=== PATIENT | male | born 1985 | race Caucasian/White ===

== ENCOUNTER 2020-04-10 12:47 | Outpatient (RCR) | payer OTHER, SELFPAY | END 2020-05-28 11:53 | disposition home or self-care (01) | LOC: HO.WCC 12:47 | PROVIDERS: PCP Internal Medicine; Visit Provider Surgery | DX: E11.621 Type 2 diabetes mellitus with foot ulcer (principal); L97.523 Non-pressure chronic ulcer of other part of left foot with necrosis of muscle; L97.512 Non-pressure chronic ulcer of other part of right foot with fat layer exposed; L97.516 Non-pressure chronic ulcer of other part of right foot with bone involvement without evidence of necrosis; T87.89 Other complications of amputation stump; L08.9 Local infection of the skin and subcutaneous tissue, unspecified; L84 Corns and callosities; Z89.422 Acquired absence of other left toe(s) | CPT/HCPCS: 11042; 11043; 11044 ==

== ENCOUNTER → 2020-04-22 10:47 | Outpatient (BNVA) | payer OTHER, SELFPAY | PROVIDERS: PCP Internal Medicine; Visit Provider Surgery Vascular Surgery | DX: L97.519 Non-pressure chronic ulcer of other part of right foot with unspecified severity (principal) | CPT/HCPCS: 99213 ==

== ENCOUNTER 2020-05-05 21:47 | Inpatient (IN) | payer OTHER, SELFPAY ==
[2020-05-05 22:07] VITALS: BP 131/73; PULSE 97; RESP 20; TEMP 37.3; O2SAT 96; BMI 25.1
[2020-05-06] VITALS (8 sets, daily range): BP systolic 106–136; BP diastolic 62–83; PULSE 71–88; RESP 16–19; TEMP 36.1–36.8; O2SAT 96–99; BMI 26.5
--- NOTE | 2020-05-06 00:14 | XR_ITS ---
EXAMINATION: XR FOOT, RIGHT CLINICAL INFORMATION: Question of osteomyelitis COMPARISON: 11/08/2019 TECHNIQUE: AP, lateral, and oblique views of the right foot. FINDINGS: Status post amputation of all 5 digits at the distal metatarsals. There is a prominent soft tissue ulceration with wound at the region of the first metatarsal. The bone is likely exposed to air. There is no significant erosions seen at this time. Soft tissue swelling noted. There is likely additional gas in the region of the second and third metatarsals. No acute fracture. XR/XR foot RT min 3V IMPRESSION: Prominent soft tissue wound in the region of the distal first metatarsal. This appears to be exposed to air which raises high suspicion for osteomyelitis. There is no definite osseous erosion at this time. This could be further evaluated with MRI.
[2020-05-06 00:53] LABS: Basophils Percent Auto 0.3 % (0-2); Eosinophils Absolute Auto 0.1 X10*3/uL (0.0-0.4); Eosinophils Percent Auto 1.2 % (0-4); Hemoglobin 8.7 g/dl (14.0-18.0); Imm Gran Abs Auto 0.04 X10*3/uL (0.00-0.03); Imm Gran Pct Auto 0.4 % (0.0-0.4); Lymphocytes Absolute Auto 1.4 X10*3/uL (1.2-4.9); Lymphocytes Percent Auto 13.5 % (20-40); MANUAL DIFF FLAG NO; Mean Corpuscular HGB Conc 33.5 g/dl (31.0-36.0); Mean Corpuscular Hemoglobin 26.3 pg (27.0-33.0); Mean Corpuscular Volume 78.5 fL (80-98); Mean Platelet Volume 9.9 fL (9.4-12.4); Monocytes Absolute Auto 0.6 X10*3/uL (0.1-1.2); Monocytes Percent Auto 5.9 % (2-11); Neutrophils Absolute Auto 7.9 X10*3/uL (2.0-8.3); Neutrophils Percent Auto 78.7 % (45-73); Platelet Count 266 X10*3/uL (160-400); Red Blood Count 3.31 X10*6/uL (4.60-5.80); White Blood Count 10.1 X10*3/uL (4.8-10.8)
--- NOTE | 2020-05-06 00:59 | PC.NURSE ---
PT TO X-RAY.
--- NOTE | 2020-05-06 01:00 | PC.NURSE ---
HL PLACED TO RIGHT HAND, LABS AND BC OBTAINED TO LAB. PT WAKES TO VERBAL STIMULI AND FALLS BACK TO SLEEP. CALL NEAL W/I REACH, SIDE RAILS UP X 2, BED IN LOW LOCKED POSITION. AWAITING FURTHER ORDERS.
[2020-05-06] MEDS: Piperacillin Sodium/Tazobactam 3.375 GM in 0.9 % Sodium Chloride 50 ML IV (01:05)
[2020-05-06 01:11] LABS: Lactic Acid 1.1 mmol/L (0.5-2.0)
[2020-05-06 01:25] LABS: Anion Gap 13 (12-20); Blood Urea Nitrogen 14 mg/dL (9-16); Calcium 8.6 mg/dL (8.4-10.2); Carbon Dioxide 34 mmol/L (22-29); Chloride 86 mmol/L (96-108); Creatinine Clr Calc Pharmacy 97.9; Estimated Glomerular Filt Rate > 60; Glucose Random 484 mg/dL (60-115); Potassium 4.9 mmol/l (3.3-5.1); Sodium 128 mmol/L (135-145)
--- NOTE | 2020-05-06 01:25 | ED.WOUNDLAC ---
HPI - Wound/Laceration General Chief Complaint: Wound/Laceration Stated Complaint: FOOT INFECTION Time Seen by Provider: 05/06/20 00:10 Source: patient Mode of arrival: ambulatory Limitations: no limitations History of Present Illness HPI narrative: Patient is a 34-year-old male with past medical history of diabetes, status post amputation of all 10 toes who sees Wound Care for some chronic ulcers on both feet but missed his appointment last week and feels there is infection on his right foot. both feet are bandaged. patient did just meet with Dr. Mendoza regarding the right foot ulcer, plan was to have Dr. Randall as follow. patient denies fever or chills. patient states he has been taking his diabetes medications regularly but has had some increased blood glucose levels consistently lately. Related Data Home Medications Medication Instructions Recorded Confirmed bisacodyl 10 mg rectal suppository 10 mg CO DAILY PRN 04/22/20 cyanocobalamin (vitamin B-12) 500 500 mcg PO DAILY 04/22/20 mcg lozenges ferrous sulfate 250 mg (50 mg 250 mg PO DAILY 04/22/20 iron) tablet,extended release gabapentin 600 mg tablet 600 mg PO TID 04/22/20 gauze bandage #100 ea 04/22/20 insulin lispro 100 unit/mL 1 sliding scale dose SUBCUT 04/22/20 subcutaneous solution USEASDIRECTD metformin 1,000 mg tablet 1,000 mg PO BID 04/22/20 varenicline 1 mg tablet 1 mg PO BID 04/22/20 Allergies Allergy/AdvReac Type Severity Reaction Status Date / Time No Known Allergies Allergy Unverified 05/05/20 22:12 [No Known Allergies*] Review of Systems Review of Systems: Yes all other systems are reviewed and are negative [facility] Past Medical History Medical History Anemia Diabetes Surgical History History of appendectomy History of carpal tunnel surgery of left wrist History 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 Family History Family History Mother Breast cancer CVD (cardiovascular disease) Diabetes Cancer Father Diabetes CVD (cardiovascular disease) Social History Social History Smoking Status: Current every day smoker Advance Directives: No Advance Directives Information Provided: No Physical Exam Vital Signs: Vital Signs: Vital Signs Temp Pulse Resp BP Pulse Ox 05/06/20 00:31 83 16 129/69 97 05/05/20 22:07 99.2 F 97 20 131/73 96 Body Mass Index 25.1 Const: General: cooperative, healthy appearing, comfortable and no acute distress HENMT: Head: Yes normal to inspection Eyes: General: appearance normal, both eyes and all related structures Neck: Neck: Yes normal visual inspection, Yes full ROM and Yes supple Resp: Effort & Inspection: normal respiratory effort and able to speak in complete sentences Cardio: Rate: regular rate Rhythm: regular rhythm Extrem: Other: Right foot, status post transmetatarsal amputation, has 2 chronic ulcers, malodorous and leaking. left foot, status post transmetatarsal amputation, has 2 chronic ulcers, not malodorous but leaking Course Course Course Narrative: 34-year-old male with past medical history of diabetes, status post transmetatarsal amputation on both feet, with chronic wounds on both feet for which he sees Wound Care on a regular basis, was also following with Dr. Mendoza and Dr. Randall who has done his previous surgeries. Dr. Cason examined the wounds with me at the bedside. Will give Vanco and Zosyn, IVF, humalog and will get right foot x-ray to check for osteomyelitis, get labs and admission. Dr Wilbert pugh'd admission MDM - Wound/Laceration Lab Data Result diagrams: 05/06/20 00:45 05/06/20 00:45 Labs: Lab Results 05/06/20 05/06/20 05/06/20 Range/Units 00:45 00:45 00:45 WBC 10.1 (4.8-10.8) X10*3/uL RBC 3.31 L (4.60-5.80) X10*6/uL Hgb 8.7 L (14.0-18.0) g/dl Hct 26.0 L (42-52) % MCV 78.5 L (80-98) fL MCH 26.3 L (27.0-33.0) pg MCHC 33.5 (31.0-36.0) g/dl RDW 14.0 (11.0-16.0) % Plt Count 266 (160-400) X10*3/uL MPV 9.9 (9.4-12.4) fL Immature Gran % (Auto) 0.4 (0.0-0.4) % Neut % (Auto) 78.7 H (45-73) % Lymph % (Auto) 13.5 L (20-40) % [place] % (Auto) 5.9 (2-11) % Eos % (Auto) 1.2 (0-4) % Baso % (Auto) 0.3 (0-2) % Lymph # (Auto) 1.4 (1.2-4.9) X10*3/uL [place] # (Auto) 0.6 (0.1-1.2) X10*3/uL Eos # (Auto) 0.1 (0.0-0.4) X10*3/uL Baso # (Auto) 0.0 (0.0-0.2) X10*3/uL Abs Immat Gran (auto) 0.04 H (0.00-0.03) X10*3/uL Absolute Neuts (auto) 7.9 (2.0-8.3) X10*3/uL Absolute Nucleated RBC 0.000 (0.0-0.012) X10*3/uL Nucleated RBC % (auto) 0.0 (0.0-0.2) /100WBC Hold Blue Top SEE NOTE Sodium 128 L (135-145) mmol/L Potassium 4.9 (3.3-5.1) mmol/l Chloride 86 L (96-108) mmol/L Carbon Dioxide 34 H (22-29) mmol/L Anion Gap 13 (12-20) BUN 14 (9-16) mg/dL Creatinine 1.11 (0.5-1.4) mg/dL Estim Creat Clear Calc 97.9 Estimated GFR > 60 Random Glucose 484 H* (60-115) mg/dL Lactic Acid (0.5-2.0) mmol/L Calcium 8.6 (8.4-10.2) mg/dL 05/06/20 Range/Units 00:45 WBC (4.8-10.8) X10*3/uL RBC (4.60-5.80) X10*6/uL Hgb (14.0-18.0) g/dl Hct (42-52) % MCV (80-98) fL MCH (27.0-33.0) pg MCHC (31.0-36.0) g/dl RDW (11.0-16.0) % Plt Count (160-400) X10*3/uL MPV (9.4-12.4) fL Immature Gran % (Auto) (0.0-0.4) % Neut % (Auto) (45-73) % Lymph % (Auto) (20-40) % [place] % (Auto) (2-11) % Eos % (Auto) (0-4) % Baso % (Auto) (0-2) % Lymph # (Auto) (1.2-4.9) X10*3/uL [place] # (Auto) (0.1-1.2) X10*3/uL Eos # (Auto) (0.0-0.4) X10*3/uL Baso # (Auto) (0.0-0.2) X10*3/uL Abs Immat Gran (auto) (0.00-0.03) X10*3/uL Absolute Neuts (auto) (2.0-8.3) X10*3/uL Absolute Nucleated RBC (0.0-0.012) X10*3/uL Nucleated RBC % (auto) (0.0-0.2) /100WBC Hold Blue Top Sodium (135-145) mmol/L Potassium (3.3-5.1) mmol/l Chloride (96-108) mmol/L Carbon Dioxide (22-29) mmol/L Anion Gap (12-20) BUN (9-16) mg/dL Creatinine (0.5-1.4) mg/dL Estim Creat Clear Calc Estimated GFR Random Glucose (60-115) mg/dL Lactic Acid 1.1 (0.5-2.0) mmol/L Calcium (8.4-10.2) mg/dL Imaging Data right foot x-ray: Attestation: I personally reviewed and interpreted this imaging study as follows: My impression: osteomyelitis Radiologist's impression: CLINICAL INFORMATION: Question of osteomyelitis COMPARISON: 11/08/2019 TECHNIQUE: AP, lateral, and oblique views of the right foot. FINDINGS: Status post amputation of all 5 digits at the distal metatarsals. There is a prominent soft tissue ulceration with wound at the region of the first metatarsal. The bone is likely exposed to air. There is no significant erosions seen at this time. Soft tissue swelling noted. There is likely additional gas in the region of the second and third metatarsals. No acute fracture. XR/XR foot RT min 3V IMPRESSION: Prominent soft tissue wound in the region of the distal first metatarsal. This appears to be exposed to air which raises high suspicion for osteomyelitis. There is no definite osseous erosion at this time. This could be further evaluated with MRI. Discharge Plan Discharge Clinical Impression: Osteomyelitis of ankle or foot, right, acute Patient Disposition: Admitted As Inpatient
[2020-05-06] MEDS: vancomycin HCL 1,000 MG in 0.9 % Sodium Chloride 250 ML 270 MG IV (02:00)
--- NOTE | 2020-05-06 02:08 | PC.NURSE ---
PT SLEEPING IN STRETCHER, WAKES TO VOICE. SKIN W/D/P. RESPIRATIONS EASY, N/L. HL FLUSHES EASILY W/O RESISTANCE, SITE INTACT. NS AND ZOSYN UP AND RUNNING PER EMAR. PT HAS AMPUTATED TOES ON RIP FEET AND LARGE OPEN WOUNDS ON BOTTOM OF RIP FEET. PT BEING ADMITTED AT THIS TIME.
[2020-05-06] MEDS: Insulin Lispro 100 UNIT/ML 3 ML VIAL 10 UNIT SUBCUT ×2 (02:15→17:25)
[2020-05-06] MEDS: 0.9 % Sodium Chloride 1,000 ML 999 ML IVCONT (02:17)
[2020-05-06 02:33] LABS: Erythrocyte Sedimentation Rate 119 MM/HR (0-15)
[2020-05-06 03:50] LABS: Glucose, Whole Blood 401 mg/dL (60-115)
--- NOTE | 2020-05-06 03:51 | PC.NURSE ---
BS 401. DR. MORRIS AWARE. VANCO INFUSED W/O DIFFICULTY. PT SLEEPING, WAKES TO VERBAL STIMULI, PT DENIES ANY COMPLAINTS. MED REC DONE. PT AWAITING FOR BED ASSIGNMENT.
--- NOTE | 2020-05-06 04:03 | PC.NURSE ---
REPORT GIVEN TO JOHNNY FOSS. PT TO FLOOR ON STRETCHER IN [facility].
--- NOTE | 2020-05-06 04:04 | MR_ITS ---
EXAMINATION: MRI FOOT WITHOUT AND WITH CONTRAST, RIGHT CLINICAL INFORMATION: Evaluate for osteomyelitis. Patient states all toes have been removed. Big toe/1st toe area is in question for exposed bone. COMPARISON: X-ray 05/06/2020. MRI 11/09/2019. X-ray 11/08/2019. TECHNIQUE: MRI in a high-field magnet without and with contrast. 9 mL Gadavist. FINDINGS: There has been resection of the 1st toe. There is diffuse abnormal edema, enhancement and loss of T1 fatty marrow diffusely in the 1st metatarsal extending to the proximal base, consistent with osteomyelitis. There is diffuse edema and enhancement in the surrounding soft tissues. There is an irregular area of nonenhancing soft tissue along the plantar aspect of the mid 1st metatarsal measuring approximately 1.9 cm in length, up to 1.7 cm transverse, 0.9 cm AP. There is an area of nonenhancement within the medullary cavity of the underlying bone measuring approximately 1.7 cm in length, measuring 0.6 x 0.5 cm in short axis. These 2 foci may be communicating. The findings could represent phlegmonous change, sinus tract. For example, reference images 8-11 series 11, images 10-15 series 10. There is edema, enhancement of the soft tissues overlying the distal amputation stump medially. There appears to be skin ulceration along the distal aspect, plantar/medial aspect of the stump. There is a nonenhancing tract extending from the distal 1st metatarsal superomedially to the skin surface, as seen on image 7 series 10, which may reflect a sinus tract. Question a sinus track along the dorsal and medial aspect of the distal stump, as well, with foci of air. Reference image 9 series 10. There are low signal foci along the distal margin of the 1st metatarsal, suggesting foci of air. No findings to suggest definite septic arthritis at the 1st TMT joint. Amputation of the 2nd digit at the distal metatarsal level. Diffuse edema, enhancement and loss of T1 signal in the residual 2nd metatarsal consistent with osteomyelitis. Surrounding soft tissue edema and enhancement. Amputation of the 3rd digit at the distal metatarsal level. There is edema in the mid to distal residual metatarsal, with loss of T1 signal distally. This could represent postsurgical changes or osteomyelitis. Correlate with surgical history. Amputation of the 4th digit at the distal metatarsal level. There is edema and enhancement in the distal aspect of the metatarsal, with loss of T1 signal distally. This could represent postsurgical changes or osteomyelitis. Amputation of the 5th digit at the distal metatarsal level. Edema and enhancement in the distal aspect of the metatarsal, with loss of T1 signal distally. This could represent postsurgical changes or osteomyelitis. Redemonstrated is metallic artifact from the linear metallic foreign body in the soft tissues plantar to the distal 3rd metatarsal. 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 There is diffuse dorsal subcutaneous edema and/or cellulitis. Soft tissue swelling. MR/MR foot RT wo/w con IMPRESSION: 1. Findings consistent with osteomyelitis of the 1st metatarsal diffusely. There is surrounding soft tissue edema and enhancement. Area of known enhancement in the plantar soft tissues and within the medullary cavity of the mid 1st metatarsal, could represent phlegmonous change or a sinus tract. See details above. 2. There appears be a skin ulceration and question of sinus tracts in the distal dorsal and medial aspect of the amputation stump, as detailed above. 3. Findings suspicious for osteomyelitis of the 2nd metatarsal diffusely. 4. Abnormal findings in the distal aspect of the 3rd, 4th and 5th metatarsal, which could be related to postsurgical changes or osteomyelitis. 5. Redemonstrated is metallic artifact plantar to the distal 3rd metatarsal and plantar fibromatosis. 6. Diffuse dorsal foot soft tissue swelling with edema and/or cellulitis. This result was discussed with Dr. Rahman at 1409 hours on 05/07/2020 and it was ascertained that the content and urgency of the report was understood at the time of direct communication.
[2020-05-06] MEDS: Enoxaparin Sodium 40 MG/0.4 ML SYRINGE SUBCUT (05:17)
[2020-05-06] MEDS: cefEPime HCl 1 GM in 0.9 % Sodium Chloride 50 ML IV ×3 (05:18→21:41)
--- NOTE | 2020-05-06 05:44 | PC.NURSE ---
PT ARRIVED TO [facility] FROM ED VIA STRETCHER WITH OSTEOMYELITIS. PT TRANSFERRED SELF FROM STRETCHER TO BED WITHOUT DIFFICULTY. VSS. PT IS NOT ON PLATEMAKER. PT ORIENTD TO UNIT. PLAN OF CARE EXPLAINED. CONSENT OBTAINED FOR WOUND PICTURES AND ALL WOUNDS DOCUMENTED PER POLICY. PTIS HIGH FALL RISK FOR TIME BEING. CALL NEAL USE DEMONSTRATED. WOUND CONSULT ORDERED. PT SEES [facility] OUTPT. PT HAS NO QUESTIONS AT THIS TIME. CALL NEAL INR EACH. BED ALARM ON.
--- NOTE | 2020-05-06 06:05 | PM.IMHP ---
History of Present Illness Date of Service: 05/06/20 Chief Complaint: right foot infection this is a 34-year-old male with past medical history of diabetes with complications including amputation of toes presents to the hospital with complaints of right foot wound. Patient is currently sleeping and I was unable to get much history from him therefore history is obtained from the ED [facility]. It appears the patient has chronic wounds of his right foott and has been following up with the wound clinic regularly but has missed his appointment for last week. he also follows up with Dr. mercado with plans to have him follow-up with General surgery. He comes today complaining that he has leaky wound in his right foot, and very smelly. Unable to obtain complete review of system on arrival to the ED hemodynamically stable with no significant abnormal vitals labs show hemoglobin of 8.7 which is closer to his recent baseline, glucose of 484, otherwise unremarkable. Right foot x-ray shows prominent soft tissue wound in the region of the distal 1st metatarsal. This appears to be exposed to air which raises high suspicious for osteomyelitis patient will be admitted for further management. Past medical history is obtained from chart: Diabetes, anemia surgical history: Appendectomy, carpal tunnel repair, transmetatarsal amputation of right and left feet family history: Significant for breast cancer in mother, CAD, diabetes social history: Comes from home, smokes daily, denies any alcohol or illicit drug Review of Systems Review of Systems: Yes Unobtainable due to mental condition [facility] Medical History Anemia Diabetes Family History Mother Breast cancer CVD (cardiovascular disease) Diabetes Cancer Father Diabetes CVD (cardiovascular disease) Surgical History History of appendectomy History of carpal tunnel surgery of left wrist History 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 Social History Household Members: Friend(s) Housing: Apartment Do you presently have visiting nurse or other home services: No Smoking Status: Former smoker Tobacco Type: Cigarette Smoked in Last 30 Days: Yes Patient Interested in Nicotine Replacement: No Patient Given Instructions on How to Stop Smoking: No Second Hand Smoke Exposure: Yes Use of substances other than those prescribed or required for medical reasons: No Any prior treatment program specific to substance use: Yes (PT ON METHADONE) Have you been hit, kicked, punched, or otherwise hurt by someone within the past year? If so, by whom?: No Do you feel safe in your current relationship?: No Current Relationship Is there a partner from a previous relationship who is making you feel unsafe now?: No Are you made to feel afraid or neglected: No Advance Directives: No Advance Directives Information Provided: No Advance Directives on File: No Do you have thoughts of harming others: None Do you have a plan to hurt others: No Plan Recently lost weight without trying: No Meds Allergies Allergy/AdvReac Type Severity Reaction Status Date / Time No Known Allergies Allergy Unverified 05/05/20 22:12 [No Known Allergies*] Home Medications Medication Instructions Recorded Confirmed Type ferrous sulfate 250 mg (50 mg 250 mg PO DAILY 04/22/20 05/06/20 History iron) tablet,extended release gabapentin 600 mg tablet 600 mg PO TID 04/22/20 05/06/20 History insulin lispro 100 unit/mL 1 sliding scale dose SUBCUT 04/22/20 05/06/20 History subcutaneous solution USEASDIRECTD metformin 1,000 mg tablet 1,000 mg PO BID 04/22/20 05/06/20 History Physical Exam Vital Signs and Narrative: Vital Signs: Last Vital Signs Temp 98.1 F 05/06/20 04:38 Pulse 72 05/06/20 04:38 Resp 19 05/06/20 04:38 BP 117/64 05/06/20 04:38 Pulse Ox 96 05/06/20 04:38 Body Mass Index 26.5 Const: Other: sleeping comfortably,no apparent distress Eyes: General: appearance normal, both eyes and all related structures Pupils: Equal, round and reactive pupils present Resp: Effort & Inspection: normal respiratory effort and able to speak in complete sentences Auscultation: clear to auscultation bilaterally Cardio: Rate: regular rate Rhythm: regular rhythm GI: Palpation (GI): Soft to palpation Auscultation: normal bowel sounds Skin: General skin exam: no rashes or lesions noted Neuro: Cranial nerves: Yes Equal, round and reactive pupils present Cognition (Neuro): normal cognition Extrem: Other: Right foot, status post transmetatarsal amputation, has 2 chronic ulcers, malodorous and leaking. left foot, status post transmetatarsal amputation, has 2 chronic ulcers, not malodorous but leaking Results Labs Labs: Laboratory Tests 05/06/20 05/06/20 05/06/20 00:45 00:45 00:45 WBC 10.1 RBC 3.31 L Hgb 8.7 L Hct 26.0 L MCV 78.5 L MCH 26.3 L MCHC 33.5 RDW 14.0 Plt Count 266 MPV 9.9 Immature Gran % (Auto) 0.4 Neut % (Auto) 78.7 H Lymph % (Auto) 13.5 L [place] % (Auto) 5.9 Eos % (Auto) 1.2 Baso % (Auto) 0.3 Lymph # (Auto) 1.4 [place] # (Auto) 0.6 Eos # (Auto) 0.1 Baso # (Auto) 0.0 Abs Immat Gran (auto) 0.04 H Absolute Neuts (auto) 7.9 Absolute Nucleated RBC 0.000 Nucleated RBC % (auto) 0.0 ESR Hold Blue Top SEE NOTE Sodium 128 L Potassium 4.9 Chloride 86 L Carbon Dioxide 34 H Anion Gap 13 BUN 14 Creatinine 1.11 Estim Creat Clear Calc 97.9 Estimated GFR > 60 POC Glucose Random Glucose 484 H* Lactic Acid Calcium 8.6 05/06/20 05/06/20 05/06/20 00:45 00:45 03:46 WBC RBC Hgb Hct MCV MCH MCHC RDW Plt Count MPV Immature Gran % (Auto) Neut % (Auto) Lymph % (Auto) [place] % (Auto) Eos % (Auto) Baso % (Auto) Lymph # (Auto) [place] # (Auto) Eos # (Auto) Baso # (Auto) Abs Immat Gran (auto) Absolute Neuts (auto) Absolute Nucleated RBC Nucleated RBC % (auto) ESR 119 H Hold Blue Top Sodium Potassium Chloride Carbon Dioxide Anion Gap BUN Creatinine Estim Creat Clear Calc Estimated GFR POC Glucose 401 H* Random Glucose Lactic Acid 1.1 Calcium Imaging right foot xray: Radiologist's impression: IMPRESSION: Prominent soft tissue wound in the region of the distal first metatarsal. This appears to be exposed to air which raises high suspicion for osteomyelitis. There is no definite osseous erosion at this time. This could be further evaluated with MRI. Assessment and Plan (1) Non-healing ulcer of right foot: Qualifiers: Non-pressure ulcer stage: unspecified non-pressure ulcer stage Qualified Code(s): L97.519 - Non-pressure chronic ulcer of other part of right foot with unspecified severity Status: Acute (2) Osteomyelitis of ankle or foot, right, acute: Status: Acute (3) Diabetes: Status: Acute (4) Anemia: Status: Acute this is a 34-year-old male with past medical history of diabetes complicated by amputations of his 10 metatarsals presents to the hospital with complaints of right foot wound that is leaking and malodorous. Found to have possible osteomyelitis and x-ray of the foot # diabetic foot wound/osteomyelitis - no evidence of systemic infection at this time follow x-ray of the foot is concerning for osteomyelitis - patient is status post 10 metatarsal amputation secondary to complications of diabetes - afebrile, no leukocytosis Plan: - Broad-spectrum antibiotic with cefepime and Vanco given his history of diabetes - blood cultures collected in the ED will follow - MRI of the foot - consult made to General surgery as well as ID # diabetes - on metformin- will hold - start low-dose sliding scale insulin - diabetic diet - continue gabapentin for neuropathy # anemia - in view of 7 occurred progressively over the past few months - currently on iron supplement - will need follow-up outpatient DVT prophylaxis: Lovenox
[2020-05-06 07:14] LABS: C Reactive Protein 17.26 mg/dL (< or = 0.50)
[2020-05-06 07:53] LABS: Glucose, Whole Blood 303 mg/dL (60-115)
--- NOTE | 2020-05-06 07:56 | P.CONGS_ITS ---
History of Present Illness Consult details Consult date: 05/06/20 Reason for consult: wound care Narrative: This is a 34-year-old gentleman with a history of diabetes mellitus and peripheral neuropathy who underwent a completion right transmetatarsal amputation several months ago with Dr. Randall. He has a history of transmetatarsal amputation on the left.He has been ambulatory and has not been employing offloading shoes. He has been under care at the wound care center for ulceration of both feet. About 2 weeks ago, he saw Dr. Mendoza in the office for consultation regarding nonhealing wound and potential need for debridement. Dr. Mendoza did not feel that there were significant vascular issues and referred him back to Dr. Randall. He appears to have missed his scheduled appointment in the office with Dr. Randall. He reports that the wound of the right foot has been getting worse and that he Came to the emergency department because of concern regarding worsening infection. He does not report fever or chills. Appetite has been good. He reports that he has been going to wound care weekly. He does his own wound care in between clinic visits. Review of Systems Constitutional: Constitutional: Denies chills, Denies fatigue and Denies poor appetite Cardiovascular: Cardiovascular: Denies chest pain, Denies palpitations and Denies dyspnea Respiratory: Respiratory: Denies cough, Denies dyspnea and Denies wheezing Gastrointestinal: Gastrointestinal: Denies no additional gastrointestinal complaints Musculoskeletal: Musculoskeletal: Reports as per HPI Integumentary/Breasts: Skin/Breast: Reports as per HPI Neurologic: Reports Sensory deficit (Neuro) ( Both feet) Endocrine: Endocrine: Denies fatigue and Denies palpitations Hematologic/Lymphatic: Hematologic/Lymphatic: Reports no additional hematologic/lymphatic complaints Allergic/Immunologic: Allergic/Immunologic: Denies wheezing [facility] Past Medical History Medical History (Updated 05/06/20 @ 08:10 by Gloria Hernandez MD) Anemia Diabetes History of substance use Family History Family History Mother Breast cancer CVD (cardiovascular disease) Diabetes Cancer Father Diabetes CVD (cardiovascular disease) Surgical History Surgical History History of appendectomy History of carpal tunnel surgery of left wrist History 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 Social History Social History Household Members: Friend(s) Housing: Apartment Do you presently have visiting nurse or other home services: No Smoking Status: Former smoker Tobacco Type: Cigarette Smoked in Last 30 Days: Yes Patient Interested in Nicotine Replacement: No Patient Given Instructions on How to Stop Smoking: No Second Hand Smoke Exposure: Yes Use of substances other than those prescribed or required for medical reasons: No Any prior treatment program specific to substance use: Yes (PT ON METHADONE) Have you been hit, kicked, punched, or otherwise hurt by someone within the past year? If so, by whom?: No Do you feel safe in your current relationship?: No Current Relationship Is there a partner from a previous relationship who is making you feel unsafe now?: No Are you made to feel afraid or neglected: No Advance Directives: No Advance Directives Information Provided: No Advance Directives on File: No Do you have thoughts of harming others: None Do you have a plan to hurt others: No Plan Recently lost weight without trying: No Meds Allergies Allergy/AdvReac Type Severity Reaction Status Date / Time No Known Allergies Allergy Unverified 05/05/20 22:12 [No Known Allergies*] Home Medications Medication Instructions Recorded Confirmed Type gabapentin 600 mg tablet 600 mg PO TID 04/22/20 05/06/20 History insulin lispro 100 unit/mL 1 sliding scale dose SUBCUT 04/22/20 05/06/20 History subcutaneous solution USEASDIRECTD metformin 1,000 mg tablet 1,000 mg PO BID 04/22/20 05/06/20 History ferrous sulfate 325 mg PO DAILY 05/06/20 05/06/20 History Physical Exam Vital Signs: Vital Signs: Vital Signs Temp Pulse Resp BP Pulse Ox 05/06/20 07:44 97.0 F 77 18 136/77 96 05/06/20 04:38 98.1 F 72 19 117/64 96 05/06/20 03:53 18 128/80 99 05/06/20 02:00 88 18 126/83 97 05/06/20 00:31 83 16 129/69 97 05/05/20 22:07 99.2 F 97 20 131/73 96 Body Mass Index 26.5 Const: General: cooperative and no acute distress HENMT: Head: Yes normal to inspection Ears: hearing grossly normal bilaterally Eyes: General: appearance normal, both eyes and all related structures Neck: Neck: Yes normal visual inspection Resp: Effort & Inspection: normal respiratory effort Auscultation: clear to auscultation bilaterally Cardio: Rate: regular rate Rhythm: regular rhythm GI: Inspection: No distended Palpation (GI): Soft to palpation, nontender and no hepatosplenomegaly Neuro: Sensory Exam: Sensory deficit (Neuro) ( Both feet) Extrem: Other: right foot: There is an open wound over the 1st metatarsal head with exposed bone and drainage of purulence material. The wound measures approximately 2.5 x 1 cm. The foot is warm with normal capillary refill. Pedal pulses are not palpable left foot: 2 open wounds plantar aspect measuring approximately 2.5 and 2.8 cm with granulating beds, somewhat dry, appearing to extend either into the deep dermis or superficial subcutaneous tissues. Pedal pulses not palpable Psych: Mental Status: mental status grossly normal Results Labs Result diagrams: 05/06/20 00:45 05/06/20 00:45 Labs: Abnormal lab results 05/06/20 05/06/20 05/06/20 Range/Units 00:45 00:45 00:45 RBC 3.31 L (4.60-5.80) X10*6/uL Hgb 8.7 L (14.0-18.0) g/dl Hct 26.0 L (42-52) % MCV 78.5 L (80-98) fL MCH 26.3 L (27.0-33.0) pg Neut % (Auto) 78.7 H (45-73) % Lymph % (Auto) 13.5 L (20-40) % Abs Immat Gran (auto) 0.04 H (0.00-0.03) X10*3/uL ESR 119 H (0-15) MM/HR Sodium 128 L (135-145) mmol/L Chloride 86 L (96-108) mmol/L Carbon Dioxide 34 H (22-29) mmol/L POC Glucose (60-115) mg/dL Random Glucose 484 H* (60-115) mg/dL C-Reactive Protein (< or = 0.50) mg/dL 05/06/20 05/06/20 05/06/20 Range/Units 03:46 06:20 07:46 RBC (4.60-5.80) X10*6/uL Hgb (14.0-18.0) g/dl Hct (42-52) % MCV (80-98) fL MCH (27.0-33.0) pg Neut % (Auto) (45-73) % Lymph % (Auto) (20-40) % Abs Immat Gran (auto) (0.00-0.03) X10*3/uL ESR (0-15) MM/HR Sodium (135-145) mmol/L Chloride (96-108) mmol/L Carbon Dioxide (22-29) mmol/L POC Glucose 401 H* 303 H (60-115) mg/dL Random Glucose (60-115) mg/dL C-Reactive Protein 17.26 H (< or = 0.50) mg/dL Short CBC 05/06/20 Range/Units 00:45 WBC 10.1 (4.8-10.8) X10*3/uL Hgb 8.7 L (14.0-18.0) g/dl Hct 26.0 L (42-52) % Plt Count 266 (160-400) X10*3/uL BMP 05/06/20 00:45 Sodium 128 L Potassium 4.9 Chloride 86 L Carbon Dioxide 34 H BUN 14 Creatinine 1.11 Calcium 8.6 All other labs normal. Assessment and Plan (1) Osteomyelitis of ankle or foot, right, acute: Problem details: he has an open wound over the right 1st metatarsal head with exposed bone and purulence drainage. There is obvious osteomyelitis present. MRI is pending to evaluate for extent. Local debridement may be possible. We will make further recommendations following completion of MRI. Continue local wound care with saline dressings at this time. note: I was unable to palpate pulses in either foot. He saw Dr. Mendoza recently, 04/22/2020. Dr. Mendoza documented a palpable right pedal pulse at that time. Status: Acute (2) Non-healing ulcer of right foot: Qualifiers: Non-pressure ulcer stage: unspecified non-pressure ulcer stage Qualified Code(s): L97.519 - Non-pressure chronic ulcer of other part of right foot with unspecified severity Status: Acute (3) Ulcer of left foot: Status: Acute He has ulcers on the plantar aspect of the left foot, longstanding. Will obtain records from wound care regarding current treatment. Would benefit from offloading.
[2020-05-06] MEDS: Insulin Lispro 100 UNIT/ML 3 ML VIAL SUBCUT ×4 (08:13→21:42)
[2020-05-06] MEDS: 0.9 % Sodium Chloride Flush 3 ML SYRINGE IVFLUSH ×3 (08:13→21:43)
[2020-05-06 08:54] LABS: Erythrocyte Sedimentation Rate 121 MM/HR (0-15)
--- NOTE | 2020-05-06 09:20 | MHC.CM.PN ---
Male 34 dx osteomyelitis Pt lives with a friend. He is mostly independent/no AD. Occasional assist is helpful. Requested copy HCP. DP STR for ABX vs Home with [facility]. Pt will arrange for transport vs BLS. CM will follow.
[2020-05-06 11:09] LABS: Glucose, Whole Blood 332 mg/dL (60-115)
--- NOTE | 2020-05-06 14:09 | P.PNIM_ITS ---
Subjective Subjective Date of Service: 05/06/20 Interval History: foot pain Cardiovascular Cardiovascular: Reports no additional cardiovascular complaints Respiratory Respiratory: Reports no additional respiratory complaints Physical Exam Vital Signs: Vital Signs: Vital Signs Temp Pulse Resp BP Pulse Ox 05/06/20 11:42 97.4 F 71 18 112/66 98 05/06/20 07:44 97.0 F 77 18 136/77 96 05/06/20 04:38 98.1 F 72 19 117/64 96 05/06/20 03:53 18 128/80 99 05/06/20 02:00 88 18 126/83 97 05/06/20 00:31 83 16 129/69 97 05/05/20 22:07 99.2 F 97 20 131/73 96 Body Mass Index 26.5 General: AO X 3, no acute distress Resp: CTA bilateral CVS: S1,S2,RRR GI: soft, non tender, non distended Neuro: motor grossly intact Psych: appropriate affect Extrem: Other: right foot: There is an open wound over the 1st metatarsal head with exposed bone and drainage of purulence material. The wound measures approximately 2.5 x 1 cm. The foot is warm with normal capillary refill. Pedal pulses are not palpable left foot: 2 open wounds plantar aspect measuring approximately 2.5 and 2.8 cm with granulating beds, somewhat dry, appearing to extend either into the deep dermis or superficial subcutaneous tissues. Pedal pulses not palpable Objective Data Current Medications Generic Name Dose Route Start Last Admin Trade Name Freq PRN Reason Stop Dose Admin Acetaminophen 650 mg 05/06/20 04:04 Acetaminophen 325 Mg Tablet PO Q6H PRN Pain, Mild (Pain Scale 1-3) Enoxaparin Sodium 40 mg 05/06/20 04:04 05/06/20 05:17 Enoxaparin Sodium 40 Mg/0.4 Ml Syringe SUBCUT 40 mg Q24H DAYNA Administration Vancomycin HCl 750 mg/ 275 mls @ 183.333 mls/hr 05/06/20 13:00 05/06/20 13:55 Vancomycin HCl 500 mg/ Sodium IV 183.33 mls/hr Chloride Q12H DAYNA Administration Cefepime HCl 1 gm/ Sodium 50 mls @ 100 mls/hr 05/06/20 05:00 05/06/20 13:54 Chloride IV Infused Q8H DAYNA Infusion Insulin Human Lispro 0 unit 05/06/20 07:30 05/06/20 13:29 Insulin Lispro 100 Unit/Ml 3 Ml Vial SUBCUT 8 unit QIDACHS [facility] Administration Protocol Ondansetron HCl 4 mg 05/06/20 04:04 Ondansetron Hcl 4 Mg/2 Ml Vial IVPUSH Q8H PRN Nausea and Vomiting Pharmacy Consult 1 each 05/06/20 02:07 Consult Rx Perform Med Rec MISCELLANE ONCE PRN Consult order Sodium Chloride 3 ml 05/06/20 08:00 05/06/20 08:13 0.9 % Sodium Chloride Flush 3 Ml Syringe IVFLUSH 3 ml QSHIFT [facility] Administration Labs CBC & Chem 7: 05/06/20 00:45 05/06/20 00:45 Assessment and Plan (1) Non-healing ulcer of right foot: Status: Acute (2) Osteomyelitis of ankle or foot, right, acute: Problem details: he has an open wound over the right 1st metatarsal head with exposed bone and purulence drainage. There is obvious osteomyelitis present. MRI is pending to evaluate for extent. Local debridement may be possible. We will make further recommendations following completion of MRI. Continue local wound care with saline dressings at this time. note: I was unable to palpate pulses in either foot. He saw Dr. Mendoza recently, 04/22/2020. Dr. Mendoza documented a palpable right pedal pulse at that time. Status: Acute (3) Diabetes: Status: Acute (4) Anemia: Status: Acute Assessment and Plan: 34-year-old male with past medical history of diabetes complicated by amputations presented to the hospital with complaints of right foot wound that was leaking and malodorous. Found to have possible osteomyelitis on x-ray of the foot diabetic foot wound/osteomyelitis continue vanc, cefepime follow up surgery, ID, MRI insulin
--- NOTE | 2020-05-06 14:10 | W.PM.IDCN ---
History of Present Illness Data of Consult Service Date: 05/06/20 Requesting physician: Suresh Rahman Primary Care Provider: Jose Manuel Alicea MD HPI Reason for consult: foot infectin right He presents to hospital with right foot odor and drainage He has been following up with [facility],but has not been there last two weeks He has had multiple amputations,including toes and has chronic nonhealing wounds He has no fever or chills Review of Systems Review of Systems: Yes all other systems are reviewed and are negative Neurologic: Reports Sensory deficit (Neuro) ( Both feet) [facility] Past Medical History Medical History Anemia Diabetes History of substance use Family History Family History Mother Breast cancer CVD (cardiovascular disease) Diabetes Cancer Father Diabetes CVD (cardiovascular disease) Surgical History Surgical History History of appendectomy History of carpal tunnel surgery of left wrist History 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 Social History Social History Household Members: Friend(s) Housing: Apartment Do you presently have visiting nurse or other home services: No Smoking Status: Former smoker Tobacco Type: Cigarette Smoked in Last 30 Days: Yes Patient Interested in Nicotine Replacement: No Patient Given Instructions on How to Stop Smoking: No Second Hand Smoke Exposure: Yes Use of substances other than those prescribed or required for medical reasons: No Currently Displaying Signs/Symptoms of Drug Intoxication Withdrawal: No Any prior treatment program specific to substance use: Yes (PT ON METHADONE) Have you been hit, kicked, punched, or otherwise hurt by someone within the past year? If so, by whom?: No Do you feel safe in your current relationship?: No Current Relationship Is there a partner from a previous relationship who is making you feel unsafe now?: No Are you made to feel afraid or neglected: No Advance Directives: No Advance Directives Information Provided: No Advance Directives on File: No Do you have thoughts of harming others: None Do you have a plan to hurt others: No Plan Recently lost weight without trying: No service: No Current occupational status: disabled Meds Allergies Allergy/AdvReac Type Severity Reaction Status Date / Time No Known Allergies Allergy Unverified 05/05/20 22:12 [No Known Allergies*] Home Medications Medication Instructions Recorded Confirmed Type ferrous sulfate 325 mg PO DAILY 05/06/20 05/06/20 History gabapentin 600 mg PO TID 05/06/20 05/06/20 History insulin lispro [Admelog U-100 1 sliding scale dose SUBCUT 05/06/20 05/06/20 History Insulin lispro] USEASDIRECTD metformin 1,000 mg PO BID 05/06/20 05/06/20 History Physical Exam Vital Signs: Vital Signs: Vital Signs Temp Pulse Resp BP Pulse Ox 05/06/20 11:42 97.4 F 71 18 112/66 98 05/06/20 07:44 97.0 F 77 18 136/77 96 05/06/20 04:38 98.1 F 72 19 117/64 96 05/06/20 03:53 18 128/80 99 05/06/20 02:00 88 18 126/83 97 05/06/20 00:31 83 16 129/69 97 05/05/20 22:07 99.2 F 97 20 131/73 96 Body Mass Index 26.5 Const: General: cooperative HENMT: Head: Yes normal to inspection Ears: hearing grossly normal bilaterally Face and sinus: Yes normal facial exam Mouth: Normal oral and palatal mucosa present Throat: Yes posterior oropharynx normal Resp: Effort & Inspection: normal respiratory effort Cardio: Rate: regular rate Rhythm: regular rhythm GI: Inspection: Yes normal to inspection : General: Yes no CVA tenderness Back/Spine/Pelvis: Back: no CVA tenderness Neuro: Other: neuropathy feet Sensory Exam: Sensory deficit (Neuro) ( Both feet) Extrem: Other: right foot wrapped,malodorous dressing Assessment and Plan (1) Non-healing ulcer of right foot: Qualifiers: Non-pressure ulcer stage: unspecified non-pressure ulcer stage Qualified Code(s): L97.519 - Non-pressure chronic ulcer of other part of right foot with unspecified severity Problem details: He has chronic osteomyelitis with acute exacerbation right foot MRI likely to show same Status: Acute Await cultures and Surgery evaluation He may need PICC line for further antibiotics for 6 weeks Foot salvage success poor for future (2) Diabetes: Status: Acute Results Labs CBC & Chem 7: 05/06/20 00:45 05/06/20 00:45 Labs: Short CBC 05/06/20 Range/Units 00:45 WBC 10.1 (4.8-10.8) X10*3/uL Hgb 8.7 L (14.0-18.0) g/dl Hct 26.0 L (42-52) % Plt Count 266 (160-400) X10*3/uL BMP 05/06/20 00:45 Sodium 128 L Potassium 4.9 Chloride 86 L Carbon Dioxide 34 H BUN 14 Creatinine 1.11 Calcium 8.6
[2020-05-06] MEDS: Gabapentin 600 MG TABLET PO ×2 (15:34→21:42)
[2020-05-06 16:36] LABS: Glucose, Whole Blood 411 mg/dL (60-115)
[2020-05-06 20:33] LABS: Glucose, Whole Blood 205 mg/dL (60-115)
[2020-05-07] MEDS: Enoxaparin Sodium 40 MG/0.4 ML SYRINGE SUBCUT (04:18)
[2020-05-07 05:32] VITALS: BMI 26.9
[2020-05-07] MEDS: cefEPime HCl 1 GM in 0.9 % Sodium Chloride 50 ML IV ×3 (05:54→21:03)
[2020-05-07 06:21] LABS: MANUAL DIFF FLAG NO
[2020-05-07 06:40] LABS: Basophils Percent Auto 0.3 % (0-2); Eosinophils Absolute Auto 0.2 X10*3/uL (0.0-0.4); Eosinophils Percent Auto 2.3 % (0-4); Hematocrit 27.4 % (42-52); Hemoglobin 8.9 g/dl (14.0-18.0); Imm Gran Abs Auto 0.03 X10*3/uL (0.00-0.03); Imm Gran Pct Auto 0.4 % (0.0-0.4); Lymphocytes Absolute Auto 1.4 X10*3/uL (1.2-4.9); Lymphocytes Percent Auto 19.6 % (20-40); Mean Corpuscular HGB Conc 32.5 g/dl (31.0-36.0); Mean Corpuscular Hemoglobin 26.1 pg (27.0-33.0); Mean Corpuscular Volume 80.4 fL (80-98); Mean Platelet Volume 10.1 fL (9.4-12.4); Monocytes Absolute Auto 0.4 X10*3/uL (0.1-1.2); Neutrophils Absolute Auto 4.9 X10*3/uL (2.0-8.3); Neutrophils Percent Auto 71.4 % (45-73); Platelet Count 261 X10*3/uL (160-400); Red Blood Count 3.41 X10*6/uL (4.60-5.80); Red Cell Distribution Width 14.2 % (11.0-16.0); White Blood Count 6.9 X10*3/uL (4.8-10.8)
[2020-05-07 07:03] LABS: Anion Gap 15 (12-20); Blood Urea Nitrogen 13 mg/dL (9-16); Calcium 8.7 mg/dL (8.4-10.2); Carbon Dioxide 32 mmol/L (22-29); Chloride 93 mmol/L (96-108); Creatinine Clr Calc Pharmacy 118.2; Estimated Glomerular Filt Rate > 60; Glucose Fasting 343 mg/dL (60-99); Potassium 5.9 mmol/l (3.3-5.1); Sodium 134 mmol/L (135-145)
[2020-05-07 07:15] VITALS: BP 141/83; PULSE 78; RESP 18; TEMP 36.6; O2SAT 97
[2020-05-07 07:16] LABS: Glucose, Whole Blood 316 mg/dL (60-115)
[2020-05-07] MEDS: Gabapentin 600 MG TABLET PO ×3 (08:19→21:08)
[2020-05-07] MEDS: Ferrous Sulfate 324 MG TABLET.DR PO (08:19)
[2020-05-07] MEDS: Insulin Lispro 100 UNIT/ML 3 ML VIAL SUBCUT ×4 (08:20→21:08)
[2020-05-07] MEDS: 0.9 % Sodium Chloride Flush 3 ML SYRINGE IVFLUSH ×3 (08:20→21:38)
--- NOTE | 2020-05-07 08:44 | MHC.CM.PN ---
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 this will depend on the progress of his hospitalization. cm to cont. to follow.
--- NOTE | 2020-05-07 11:04 | HO.PM.IMPN ---
Subjective Subjective Date of Service: 05/07/20 Interval History: unchanged Cardiovascular Cardiovascular: Reports no additional cardiovascular complaints Respiratory Respiratory: Reports no additional respiratory complaints Physical Exam Vital Signs: Vital Signs: Vital Signs Temp Pulse Resp BP Pulse Ox 05/07/20 07:15 97.8 F 78 18 141/83 H 97 05/06/20 22:57 97.3 F 80 19 109/66 98 05/06/20 15:30 98.2 F 78 18 106/62 99 05/06/20 11:42 97.4 F 71 18 112/66 98 Body Mass Index 26.9 General: AO X 3, no acute distress Resp: CTA bilateral CVS: S1,S2,RRR GI: soft, non tender, non distended Neuro: motor grossly intact Psych: appropriate affect Extrem: Other: right foot: There is an open wound over the 1st metatarsal head with exposed bone and drainage of purulence material. The wound measures approximately 2.5 x 1 cm. The foot is warm with normal capillary refill. Pedal pulses are not palpable left foot: 2 open wounds plantar aspect measuring approximately 2.5 and 2.8 cm with granulating beds, somewhat dry, appearing to extend either into the deep dermis or superficial subcutaneous tissues. Pedal pulses not palpable Objective Data Current Medications Generic Name Dose Route Start Last Admin Trade Name Freq PRN Reason Stop Dose Admin Acetaminophen 650 mg 05/06/20 04:04 Acetaminophen 325 Mg Tablet PO Q6H PRN Pain, Mild (Pain Scale 1-3) Enoxaparin Sodium 40 mg 05/06/20 04:04 05/07/20 04:18 Enoxaparin Sodium 40 Mg/0.4 Ml Syringe SUBCUT 40 mg Q24H DAYNA Administration Ferrous Sulfate 324 mg 05/07/20 09:00 05/07/20 08:19 Ferrous Sulfate 324 Mg Tablet. PO 324 mg DAILY DAYNA Administration Gabapentin 600 mg 05/06/20 15:00 05/07/20 08:19 Gabapentin 600 Mg Tablet PO 600 mg TID DAYNA Administration Vancomycin HCl 750 mg/ 275 mls @ 183.333 mls/hr 05/06/20 13:00 05/07/20 02:50 Vancomycin HCl 500 mg/ Sodium IV Infused Chloride Q12H DAYNA Infusion Cefepime HCl 1 gm/ Sodium 50 mls @ 100 mls/hr 05/06/20 05:00 05/07/20 08:12 Chloride IV Infused Q8H DAYNA Infusion Insulin Human Lispro 0 unit 05/06/20 07:30 05/07/20 08:20 Insulin Lispro 100 Unit/Ml 3 Ml Vial SUBCUT 8 unit QIDACHS [facility] Administration Protocol Methadone HCl 30 mg 05/07/20 10:15 05/07/20 10:59 Methadone Hcl 1 Mg/0.1 Ml Oral.Conc PO 30 mg DAILY DAYNA Administration Ondansetron HCl 4 mg 05/06/20 04:04 Ondansetron Hcl 4 Mg/2 Ml Vial IVPUSH Q8H PRN Nausea and Vomiting Pharmacy Consult 1 each 05/06/20 02:07 Consult Rx Perform Med Rec MISCELLANE ONCE PRN Consult order Sodium Chloride 3 ml 05/06/20 08:00 05/07/20 08:20 0.9 % Sodium Chloride Flush 3 Ml Syringe IVFLUSH 3 ml QSHIFT [facility] Administration Labs CBC & Chem 7: 05/07/20 05:51 05/07/20 05:51 Microbiology Microbiology Results: Microbiology 05/06/20 00:45 Blood - Venous Blood Culture - Preliminary Strep agalactiae (Grp B) 05/06/20 00:46 Blood - Venous Blood Culture - Preliminary No growth after 24 hours. Assessment and Plan (1) Non-healing ulcer of right foot: Problem details: He has chronic osteomyelitis with acute exacerbation right foot MRI likely to show same Status: Acute (2) Osteomyelitis of ankle or foot, right, acute: Problem details: he has an open wound over the right 1st metatarsal head with exposed bone and purulence drainage. There is obvious osteomyelitis present. MRI is pending to evaluate for extent. Local debridement may be possible. We will make further recommendations following completion of MRI. Continue local wound care with saline dressings at this time. note: I was unable to palpate pulses in either foot. He saw Dr. Mendoza recently, 04/22/2020. Dr. Mendoza documented a palpable right pedal pulse at that time. Status: Acute (3) Diabetes: Status: Acute (4) Anemia: Status: Acute Assessment and Plan: 34-year-old male with past medical history of diabetes complicated by amputations presented to the hospital with complaints of right foot wound that was leaking and malodorous. Found to have possible osteomyelitis on x-ray of the foot diabetic foot wound/osteomyelitis continue vanc, cefepime follow up MRI read likely will need long chain quiller tender IV abx surgery and ID following DM insulin
[2020-05-07 11:15] LABS: Glucose, Whole Blood 377 mg/dL (60-115)
[2020-05-07 11:29] VITALS: BP 114/64; PULSE 80; RESP 19; TEMP 36.3; O2SAT 99
--- NOTE | 2020-05-07 11:45 | PM.PNGS ---
Subjective Subjective Patient reports: no new complaints Physical Exam Vital Signs: Vital Signs: Vital Signs Temp Pulse Resp BP Pulse Ox 05/07/20 11:29 97.3 F 80 19 114/64 99 05/07/20 07:15 97.8 F 78 18 141/83 H 97 05/06/20 22:57 97.3 F 80 19 109/66 98 05/06/20 15:30 98.2 F 78 18 106/62 99 Body Mass Index 26.9 Const: General: cooperative and no acute distress Extrem: Other: right foot ulcer distal 1st metatarsal tma site appears stable, exposed bone, small amount of purulent discharge, no erythema Progress Note: A&P Assessment and plan (1) Osteomyelitis of ankle or foot, right, acute: Problem details: he has an open wound over the right 1st metatarsal head with exposed bone and purulence drainage. There is obvious osteomyelitis present. MRI reading not done yet, but I reviewed images with Dr. Mejia. It appears that osteo extends to base of 1st and 2nd metatarsals. Options are to debride back proximally and treat for residual osteo or to perform a more proximal resection. Will discuss with Dr. Mendoza and Dr. Randall as well as Dr. Lira. I discussed options with pt including BKA, which would be a reasonable choice at this point. Status: Acute Fall Risk Details Current Medications: Current Medications Generic Name Dose Route Start Last Admin Trade Name Freq PRN Reason Stop Dose Admin Acetaminophen 650 mg 05/06/20 04:04 Acetaminophen 325 Mg Tablet PO Q6H PRN Pain, Mild (Pain Scale 1-3) Enoxaparin Sodium 40 mg 05/06/20 04:04 05/07/20 04:18 Enoxaparin Sodium 40 Mg/0.4 Ml Syringe SUBCUT 40 mg Q24H DAYNA Administration Ferrous Sulfate 324 mg 05/07/20 09:00 05/07/20 08:19 Ferrous Sulfate 324 Mg Tablet. PO 324 mg DAILY DAYNA Administration Gabapentin 600 mg 05/06/20 15:00 05/07/20 08:19 Gabapentin 600 Mg Tablet PO 600 mg TID DAYNA Administration Vancomycin HCl 750 mg/ 275 mls @ 183.333 mls/hr 05/06/20 13:00 05/07/20 02:50 Vancomycin HCl 500 mg/ Sodium IV Infused Chloride Q12H DAYNA Infusion Cefepime HCl 1 gm/ Sodium 50 mls @ 100 mls/hr 05/06/20 05:00 05/07/20 08:12 Chloride IV Infused Q8H DAYNA Infusion Insulin Human Lispro 0 unit 05/06/20 07:30 05/07/20 08:20 Insulin Lispro 100 Unit/Ml 3 Ml Vial SUBCUT 8 unit QIDACHS DAYNA Administration Protocol Methadone HCl 30 mg 05/07/20 10:15 05/07/20 10:59 Methadone Hcl 1 Mg/0.1 Ml Oral.Conc PO 30 mg DAILY DAYNA Administration Ondansetron HCl 4 mg 05/06/20 04:04 Ondansetron Hcl 4 Mg/2 Ml Vial IVPUSH Q8H PRN Nausea and Vomiting Pharmacy Consult 1 each 05/06/20 02:07 Consult Rx Perform Med Rec MISCELLANE ONCE PRN Consult order Sodium Chloride 3 ml 05/06/20 08:00 05/07/20 08:20 0.9 % Sodium Chloride Flush 3 Ml Syringe IVFLUSH 3 ml QSHIFT DAYNA Administration Time Spent With Patient Time: Total time spent is greater than 50% in coordination of care (as documented) at patient's floor/unit and/or counseling patient: Time with patient: 15 - 24 minutes
[2020-05-07 13:45] LABS: Vancomycin Trough 7.9 mcg/mL (10.0-20.0)
[2020-05-07] MEDS: vancomycin HCL 1,000 MG in 0.9 % Sodium Chloride 250 ML 180 MG IV ×2 (15:00→21:33)
[2020-05-07 15:41] VITALS: BP 116/65; PULSE 71; RESP 18; TEMP 35.8; O2SAT 97
[2020-05-07 16:27] LABS: Glucose, Whole Blood 311 mg/dL (60-115)
--- NOTE | 2020-05-07 16:31 | PM.EVENT ---
Event Note Event Note: 34-year-old male admitted for open wound on the stump of the right foot He had undergone amputation of 1st and 3rd toes last year on the right Last November 2019, he had osteomyelitis of the 2nd toe, and eventually underwent amputation of the 2nd, 4th and 5th toes on the right He says the amputation sites had healed well. However, the past 2-3 weeks, he has noted ulceration of the stump at the area of the 1st metatarsal. This had worsened so he came to the emergency room and was admitted. Examination shows an open wound with exposed bone at the area of the 1st metatarsal MRI shows findings suggestive of osteomyelitis diffusely on the 1st and 2nd metatarsal and question of osteomyelitis of the distal end of the 3rd, 4th, and 5th metatarsals Will review MRI findings Will discuss with Dr. Mendoza who has been following the patient in the office The patient may benefit from BKA Will follow Continue antibiotics for now Dressings changed
[2020-05-07 20:51] LABS: Glucose, Whole Blood 380 mg/dL (60-115)
[2020-05-08] VITALS: BP 113/58; PULSE 77; RESP 18; TEMP 36.8; O2SAT 97
[2020-05-08] MEDS: Enoxaparin Sodium 40 MG/0.4 ML SYRINGE SUBCUT (03:57)
[2020-05-08] MEDS: cefEPime HCl 1 GM in 0.9 % Sodium Chloride 50 ML IV ×3 (04:00→21:24)
[2020-05-08] MEDS: vancomycin HCL 1,000 MG in 0.9 % Sodium Chloride 250 ML 180 MG IV ×3 (05:02→21:28)
[2020-05-08 06:00] VITALS: BMI 27.0
[2020-05-08 06:18] LABS: MANUAL DIFF FLAG NO
[2020-05-08 06:33] LABS: Basophils Percent Auto 0.4 % (0-2); Eosinophils Absolute Auto 0.2 X10*3/uL (0.0-0.4); Eosinophils Percent Auto 2.6 % (0-4); Hematocrit 26.9 % (42-52); Hemoglobin 8.6 g/dl (14.0-18.0); Imm Gran Abs Auto 0.02 X10*3/uL (0.00-0.03); Imm Gran Pct Auto 0.4 % (0.0-0.4); Lymphocytes Absolute Auto 1.3 X10*3/uL (1.2-4.9); Lymphocytes Percent Auto 23.1 % (20-40); Mean Corpuscular Hemoglobin 25.7 pg (27.0-33.0); Mean Corpuscular Volume 80.5 fL (80-98); Mean Platelet Volume 10.3 fL (9.4-12.4); Monocytes Absolute Auto 0.5 X10*3/uL (0.1-1.2); Monocytes Percent Auto 8.4 % (2-11); Neutrophils Absolute Auto 3.7 X10*3/uL (2.0-8.3); Neutrophils Percent Auto 65.1 % (45-73); Platelet Count 260 X10*3/uL (160-400); Red Blood Count 3.34 X10*6/uL (4.60-5.80); Red Cell Distribution Width 14.3 % (11.0-16.0); White Blood Count 5.7 X10*3/uL (4.8-10.8)
[2020-05-08 07:08] VITALS: BP 127/71; PULSE 68; RESP 18; TEMP 36.9; O2SAT 97
[2020-05-08 07:09] LABS: Anion Gap 13 (12-20); Blood Urea Nitrogen 13 mg/dL (9-16); Calcium 8.3 mg/dL (8.4-10.2); Carbon Dioxide 32 mmol/L (22-29); Chloride 92 mmol/L (96-108); Creatinine Clr Calc Pharmacy 126.4; Estimated Glomerular Filt Rate > 60; Glucose Fasting 410 mg/dL (60-99); Potassium 4.8 mmol/l (3.3-5.1); Sodium 132 mmol/L (135-145)
[2020-05-08 08:24] LABS: Glucose, Whole Blood 410 mg/dL (60-115)
[2020-05-08] MEDS: 0.9 % Sodium Chloride Flush 3 ML SYRINGE IVFLUSH ×2 (08:43→17:03)
[2020-05-08] MEDS: Ferrous Sulfate 324 MG TABLET.DR PO (08:43)
[2020-05-08] MEDS: Insulin Lispro 100 UNIT/ML 3 ML VIAL SUBCUT ×5 (08:43→21:27)
[2020-05-08] MEDS: Gabapentin 600 MG TABLET PO ×3 (08:43→21:26)
--- NOTE | 2020-05-08 08:43 | MHC.CM.PN ---
pt has been to [facility] in the past for retirement iv abx's. he said that he prefers to go home c a picc , vna and infusion svcs. 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 he also says he has AA supports that he lives with. if he cannot go home c these svcs then he is willing to go to [facility] again as he understands that his tx is important. a ref. for [facility] , vna and infusion svcs have all been made. cm to cont. to follow.
--- NOTE | 2020-05-08 08:54 | PM.PNGS ---
Subjective Subjective Patient reports: no new complaints Interval history: Some some drainage from the open wound No other events reported Patient says he is feels well Physical Exam Vital Signs: Vital Signs: Vital Signs Temp Pulse Resp BP Pulse Ox 05/08/20 07:08 98.5 F 68 18 127/71 97 05/08/20 00:00 98.2 F 77 18 113/58 L 97 05/07/20 15:41 96.4 F L 71 18 116/65 97 05/07/20 11:29 97.3 F 80 19 114/64 99 Body Mass Index 27.0 Const: General: comfortable and no acute distress Extrem: Other: Open wound, medial aspect of trans met amputation site, end of distal 1st metatarsal exposed, no cellulitic changes Progress Note: A&P Assessment and plan (1) Osteomyelitis of ankle or foot, right, acute: Status: Acute Assessment and Plan: He has an open wound with exposed metatarsal at the old amputation site MRI suggestive of osteomyelitis extending diffusely more proximally on both 1st and 2nd metatarsal I have changes dressings IV antibiotics for now Possible BKA Dr. Mendoza consulted as well for opinion Fall Risk Details Current Medications: Current Medications Generic Name Dose Route Start Last Admin Trade Name Freq PRN Reason Stop Dose Admin Acetaminophen 650 mg 05/06/20 04:04 Acetaminophen 325 Mg Tablet PO Q6H PRN Pain, Mild (Pain Scale 1-3) Enoxaparin Sodium 40 mg 05/06/20 04:04 05/08/20 03:57 Enoxaparin Sodium 40 Mg/0.4 Ml Syringe SUBCUT 40 mg Q24H DAYNA Administration Ferrous Sulfate 324 mg 05/07/20 09:00 05/08/20 08:43 Ferrous Sulfate 324 Mg Tablet. PO 324 mg DAILY DAYNA Administration Gabapentin 600 mg 05/06/20 15:00 05/08/20 08:43 Gabapentin 600 Mg Tablet PO 600 mg TID DAYNA Administration Cefepime HCl 1 gm/ Sodium 50 mls @ 100 mls/hr 05/06/20 05:00 05/08/20 04:44 Chloride IV Infused Q8H DAYNA Infusion Vancomycin HCl 1,000 mg/ 270 mls @ 180 mls/hr 05/07/20 14:00 05/08/20 06:13 Sodium Chloride IV Infused Q8H DAYNA Infusion Insulin Human Lispro 0 unit 05/06/20 07:30 05/08/20 08:43 Insulin Lispro 100 Unit/Ml 3 Ml Vial SUBCUT 10 unit QIDACHS DAYNA Administration Protocol Methadone HCl 30 mg 05/07/20 10:15 05/08/20 08:46 Methadone Hcl 1 Mg/0.1 Ml Oral.Conc PO 30 mg DAILY DAYNA Administration Ondansetron HCl 4 mg 05/06/20 04:04 Ondansetron Hcl 4 Mg/2 Ml Vial IVPUSH Q8H PRN Nausea and Vomiting Pharmacy Consult 1 each 05/06/20 02:07 Consult Rx Perform Med Rec MISCELLANE ONCE PRN Consult order Sodium Chloride 3 ml 05/06/20 08:00 05/08/20 08:43 0.9 % Sodium Chloride Flush 3 Ml Syringe IVFLUSH 3 ml QSHIFT DAYNA Administration Time Spent With Patient Time: Total time spent is greater than 50% in coordination of care (as documented) at patient's floor/unit and/or counseling patient: Time with patient: less than 15 minutes
[2020-05-08 11:19] LABS: Glucose, Whole Blood 322 mg/dL (60-115)
[2020-05-08 11:27] VITALS: BP 111/58; PULSE 67; RESP 18; TEMP 36.6; O2SAT 96
--- NOTE | 2020-05-08 11:27 | PM.EVENT ---
Event Note Event Note: Full consult dictated. Case discussed with Dr. Randall.
[2020-05-08 13:36] LABS: Vancomycin Trough 16.1 mcg/mL (10.0-20.0)
--- NOTE | 2020-05-08 14:10 | HO.PM.IMPN ---
Subjective Subjective Date of Service: 05/08/20 Interval History: patient offers no complaints of pain, tolerating diabetic diet noted to have elevated blood sugars otherwise no other acute issues overnight. Review of Systems General no headache no dizziness no fever chills. CVS no chest pain, no palpitation. Respiratory no cough no sputum production no respiratory distress. Musculoskeletal no complain of foot pain Physical Exam Vital Signs: Vital Signs: Vital Signs Temp Pulse Resp BP Pulse Ox 05/08/20 11:27 97.8 F 67 18 111/58 L 96 05/08/20 07:08 98.5 F 68 18 127/71 97 05/08/20 00:00 98.2 F 77 18 113/58 L 97 05/07/20 15:41 96.4 F L 71 18 116/65 97 Body Mass Index 27.0 General patient resting comfortably,no acute distress. Neck is supple no JVD. CVS regular rate rhythm, Respiratory lungs clear to auscultation, no respiratory distress, no wheeze, no rhonchi. Gastrointestinal abdomen soft, nontender, bowel sounds audible. Extremities left foot with 2 open wounds plantar aspect measuring 2.5 and 2.8 centimetre, right foot with an open wound or the 1st metatarsal head with exposed bone and purulent drainage no palpable pedal pulses on both feet Neuro nonfocal Skin no rash Objective Data Current Medications Generic Name Dose Route Start Last Admin Trade Name Freq PRN Reason Stop Dose Admin Acetaminophen 650 mg 05/06/20 04:04 Acetaminophen 325 Mg Tablet PO Q6H PRN Pain, Mild (Pain Scale 1-3) Enoxaparin Sodium 40 mg 05/06/20 04:04 05/08/20 03:57 Enoxaparin Sodium 40 Mg/0.4 Ml Syringe SUBCUT 40 mg Q24H DAYNA Administration Ferrous Sulfate 324 mg 05/07/20 09:00 05/08/20 08:43 Ferrous Sulfate 324 Mg Tablet.Dr PO 324 mg DAILY DAYNA Administration Gabapentin 600 mg 05/06/20 15:00 05/08/20 08:43 Gabapentin 600 Mg Tablet PO 600 mg TID DAYNA Administration Cefepime HCl 1 gm/ Sodium 50 mls @ 100 mls/hr 05/06/20 05:00 05/08/20 13:11 Chloride IV Infused Q8H DAYNA Infusion Vancomycin HCl 1,000 mg/ 270 mls @ 180 mls/hr 05/07/20 14:00 05/08/20 13:18 Sodium Chloride IV 180 mls/hr Q8H DAYNA Administration Insulin Human Lispro 0 unit 05/06/20 07:30 05/08/20 11:49 Insulin Lispro 100 Unit/Ml 3 Ml Vial SUBCUT 8 unit QIDACHS DAYNA Administration Protocol Methadone HCl 30 mg 05/07/20 10:15 05/08/20 08:46 Methadone Hcl 1 Mg/0.1 Ml Oral.Conc PO 30 mg DAILY DAYAN Administration Ondansetron HCl 4 mg 05/06/20 04:04 Ondansetron Hcl 4 Mg/2 Ml Vial IVPUSH Q8H PRN Nausea and Vomiting Pharmacy Consult 1 each 05/06/20 02:07 Consult Rx Perform Med Rec MISCELLANE ONCE PRN Consult order Sodium Chloride 3 ml 05/06/20 08:00 05/08/20 08:43 0.9 % Sodium Chloride Flush 3 Ml Syringe IVFLUSH 3 ml QSHIFT DAYNA Administration Labs CBC & Chem 7: 05/08/20 05:31 05/08/20 05:31 Microbiology Microbiology Results: Microbiology 05/06/20 00:45 Blood - Venous Blood Culture - Preliminary Strep agalactiae (Grp B) 05/06/20 00:46 Blood - Venous Blood Culture - Preliminary No growth after 48 hours. Assessment and Plan (1) Osteomyelitis of ankle or foot, right, acute: Status: Acute (2) Diabetes: Status: Acute (3) Anemia: Status: Acute (4) Non-healing ulcer of right foot: Problem details: He has chronic osteomyelitis with acute exacerbation right foot MRI likely to show same Status: Acute (5) Ulcer of left foot: Status: Acute Assessment and Plan: Diabetic foot wound/osteomyelitis patient has had no fever chills and MRI of foot shows findings suggestive of osteomyelitis of 1st and 2nd metatarsal and question of osteomyelitis distal ends of 3rd, 4th and 5th metatarsals case discussed with Dr. Mendoza he recommend to do revision of transmetatarsal amputation patient underwent amputation of 2nd 4th and 5th toes on right in November of 2019 will continue IV antibiotic cefepime and vancomycin day 2 on antibiotic Vanco trough 16.1, patient afebrile with normal WBC count follow renal function while on vancomycin. DM blood sugar in 300-400 range since patient not on home dose of Lantus will resume Lantus and continue insulin sliding scale and diabetic diet , will hold metformin. anemia of chronic disease low hematocrit but stable follow CBC DVT prophylaxis on Lovenox
[2020-05-08 15:07] VITALS: BP 134/77; PULSE 71; RESP 18; TEMP 36.8; O2SAT 98
[2020-05-08 16:24] LABS: Glucose, Whole Blood 315 mg/dL (60-115)
[2020-05-08 20:59] LABS: Glucose, Whole Blood 528 mg/dL (60-115)
--- NOTE | 2020-05-08 21:06 | CONS_ITS ---
DATE OF SERVICE: 05/08/2020 REASON FOR CONSULTATION: Nonhealing right foot wound. HISTORY OF PRESENT ILLNESS: A 34-year-old gentleman with a history of diabetes and peripheral neuropathy, who underwent a complete right transmetatarsal amputation several months ago by Dr. Randall. I had been following him for evaluation of peripheral vascular disease. He did have a visit with me a few weeks prior which at that time he did have a palpable pulse and an ROGER of 1.26 on the right foot. He continues to have this nonhealing foot ulcer. It has been getting worse and he presented to the emergency department. He now presents for followup evaluation. PAST MEDICAL HISTORY: Includes anemia, diabetes, and prior history of substance abuse. PAST SURGICAL HISTORY: Includes appendectomy; carpal tunnel release, left wrist; transmetatarsal amputation, left foot; multiple toe amputations, right foot. MEDICATIONS: Medication list was reviewed per nursing MAR. ALLERGIES: THE PATIENT HAS NO KNOWN DRUG ALLERGIES. SOCIAL HISTORY: The patient is a smoker, nondrinker, prior history of substance abuse. FAMILY HISTORY: No history of advanced coronary artery disease or peripheral vascular disease. REVIEW OF SYSTEMS: A 13-point review was performed at the current time. Denies any headache, dizziness, nausea, vomiting, diarrhea, or shortness of breath. He notes that his right foot pain has improved. PHYSICAL EXAMINATION: VITAL SIGNS: Afebrile. Vitals stable. HEAD AND NECK: Demonstrates no bruits. CHEST: Moving air bilaterally. CARDIAC: Positive S1-S2. ABDOMEN: Soft. EXTREMITIES: Upper extremities have good radial and ulnar pulses. Lower extremities, warm with good capillary refill. Right side transmetatarsal amputation site incision line is healed. He has a large ulcer on the plantar metatarsal head. PULSE EXAM: There is a palpable dorsalis pedis pulse on the right and left lower extremity. SKIN: Open ulceration measuring approximately 5 cm in diameter on the plantar aspect of the foot. NEUROLOGIC: II through XII grossly intact. PSYCH: Mood and affect appear within normal limits. LABORATORY DATA: Last white count is 5.7. Foot MRI demonstrates osteomyelitis between first metatarsal and second metatarsal. IMPRESSION: Nonhealing right foot wound with osteomyelitis. The patient has had prior transmetatarsal amputation. A lot of this may be due to failure of offloading. I have discussed the findings with the patient and we would attempt a revision of this transmetatarsal amputation. There is a high risk that this may fail and he may eventually end up with a below-knee amputation. He demonstrates an understanding of this and consented to revision of right transmetatarsal amputation. I did have an opportunity to discuss this case with Dr. Randall as well. We will schedule him tomorrow. Thank you for allowing us to assist in his care. MD NATALIE Gandara/COLETTE / [phone]
[2020-05-08] MEDS: Insulin Glargine,Hum.rec.anlog 100 UNIT/ML 10 ML VIAL 15 UNIT SUBCUT (21:26)
[2020-05-08 23:05] VITALS: BP 122/68; PULSE 75; RESP 20; TEMP 36.7; O2SAT 97
[2020-05-09] VITALS (16 sets, daily range): BP systolic 108–139; BP diastolic 58–82; PULSE 63–81; RESP 7–20; TEMP 36.2–36.9; O2SAT 95–100; BMI 27.4
[2020-05-09] MEDS: Enoxaparin Sodium 40 MG/0.4 ML SYRINGE SUBCUT (03:13)
[2020-05-09] MEDS: vancomycin HCL 1,000 MG in 0.9 % Sodium Chloride 250 ML 180 MG IV (04:19)
[2020-05-09] MEDS: cefEPime HCl 1 GM in 0.9 % Sodium Chloride 50 ML IV (04:21)
[2020-05-09] MEDS: Gabapentin 600 MG TABLET PO ×3 (07:50→21:40)
[2020-05-09] MEDS: Ferrous Sulfate 324 MG TABLET.DR PO (07:50)
[2020-05-09] MEDS: 0.9 % Sodium Chloride Flush 3 ML SYRINGE IVFLUSH ×3 (07:51→22:11)
[2020-05-09 08:27] LABS: Glucose, Whole Blood 307 mg/dL (60-115)
[2020-05-09] MEDS: Insulin Glargine,Hum.rec.anlog 100 UNIT/ML 10 ML VIAL 15 UNIT SUBCUT (09:07)
--- NOTE | 2020-05-09 11:44 | HO.ANESPROP2 ---
[facility] Past Medical History Medical History Anemia Diabetes History of substance use Family History Family History Mother Breast cancer CVD (cardiovascular disease) Diabetes Cancer Father Diabetes CVD (cardiovascular disease) Surgical History Surgical History History of appendectomy History of carpal tunnel surgery of left wrist History 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 Social History Social History Household Members: Friend(s) Housing: Apartment Do you presently have visiting nurse or other home services: No Smoking Status: Former smoker Tobacco Type: Cigarette Smoked in Last 30 Days: Yes Patient Interested in Nicotine Replacement: No Patient Given Instructions on How to Stop Smoking: No Second Hand Smoke Exposure: No Use of substances other than those prescribed or required for medical reasons: No Currently Displaying Signs/Symptoms of Drug Intoxication Withdrawal: No Any prior treatment program specific to substance use: Yes (PT ON METHADONE) Have you been hit, kicked, punched, or otherwise hurt by someone within the past year? If so, by whom?: No Do you feel safe in your current relationship?: No Current Relationship Is there a partner from a previous relationship who is making you feel unsafe now?: No Are you made to feel afraid or neglected: No Advance Directives: No Advance Directives Information Provided: No Advance Directives on File: No Do you have thoughts of harming others: None Do you have a plan to hurt others: No Plan Recently lost weight without trying: No service: No Current occupational status: disabled Meds Allergies Allergy/AdvReac Type Severity Reaction Status Date / Time No Known Allergies Allergy Unverified 05/05/20 22:12 [No Known Allergies*] Home Medications Medication Instructions Recorded Confirmed Type ferrous sulfate 325 mg PO DAILY 05/06/20 05/06/20 History gabapentin 600 mg PO TID 05/06/20 05/06/20 History insulin lispro [Admelog U-100 1 sliding scale dose SUBCUT 05/06/20 05/06/20 History Insulin lispro] USEASDIRECTD metformin 1,000 mg PO BID 05/06/20 05/06/20 History methadone 30 mg PO DAILY 05/07/20 05/07/20 History Exam Exam Date and Time: May 09, 2020 1144 Height,Weight and Vital Signs: Height 5 ft 11 in Weight 89.4 kg Last Vital Signs Temp 97.1 F 05/09/20 10:49 Pulse 73 05/09/20 10:49 Resp 16 05/09/20 10:49 BP 130/79 05/09/20 10:49 Pulse Ox 97 05/09/20 10:49 Pertinent Lab Results Pertinent Lab Results: Laboratory Tests 05/06/20 05/06/20 05/06/20 00:45 00:45 00:45 WBC 10.1 RBC 3.31 L Hgb 8.7 L Hct 26.0 L MCV 78.5 L MCH 26.3 L MCHC 33.5 RDW 14.0 Plt Count 266 MPV 9.9 Immature Gran % (Auto) 0.4 Neut % (Auto) 78.7 H Lymph % (Auto) 13.5 L [place] % (Auto) 5.9 Eos % (Auto) 1.2 Baso % (Auto) 0.3 Lymph # (Auto) 1.4 [place] # (Auto) 0.6 Eos # (Auto) 0.1 Baso # (Auto) 0.0 Abs Immat Gran (auto) 0.04 H Absolute Neuts (auto) 7.9 Absolute Nucleated RBC 0.000 Nucleated RBC % (auto) 0.0 ESR Hold Blue Top SEE NOTE Sodium 128 L Potassium 4.9 Chloride 86 L Carbon Dioxide 34 H Anion Gap 13 BUN 14 Creatinine 1.11 Estim Creat Clear Calc 97.9 Estimated GFR > 60 POC Glucose Random Glucose 484 H* Fasting Glucose Lactic Acid Calcium 8.6 C-Reactive Protein Vancomycin Trough 05/06/20 05/06/20 05/06/20 00:45 00:45 03:46 WBC RBC Hgb Hct MCV MCH MCHC RDW Plt Count MPV Immature Gran % (Auto) Neut % (Auto) Lymph % (Auto) [place] % (Auto) Eos % (Auto) Baso % (Auto) Lymph # (Auto) [place] # (Auto) Eos # (Auto) Baso # (Auto) Abs Immat Gran (auto) Absolute Neuts (auto) Absolute Nucleated RBC Nucleated RBC % (auto) ESR 119 H Hold Blue Top Sodium Potassium Chloride Carbon Dioxide Anion Gap BUN Creatinine Estim Creat Clear Calc Estimated GFR POC Glucose 401 H* Random Glucose Fasting Glucose Lactic Acid 1.1 Calcium C-Reactive Protein Vancomycin Trough 05/06/20 05/06/20 05/06/20 06:20 06:20 07:46 WBC RBC Hgb Hct MCV MCH MCHC RDW Plt Count MPV Immature Gran % (Auto) Neut % (Auto) Lymph % (Auto) [place] % (Auto) Eos % (Auto) Baso % (Auto) Lymph # (Auto) [place] # (Auto) Eos # (Auto) Baso # (Auto) Abs Immat Gran (auto) Absolute Neuts (auto) Absolute Nucleated RBC Nucleated RBC % (auto) ESR 121 H Hold Blue Top Sodium Potassium Chloride Carbon Dioxide Anion Gap BUN Creatinine Estim Creat Clear Calc Estimated GFR POC Glucose 303 H Random Glucose Fasting Glucose Lactic Acid Calcium C-Reactive Protein 17.26 H Vancomycin Trough 05/06/20 05/06/20 05/06/20 11:00 16:24 20:22 WBC RBC Hgb Hct MCV MCH MCHC RDW Plt Count MPV Immature Gran % (Auto) Neut % (Auto) Lymph % (Auto) [place] % (Auto) Eos % (Auto) Baso % (Auto) Lymph # (Auto) [place] # (Auto) Eos # (Auto) Baso # (Auto) Abs Immat Gran (auto) Absolute Neuts (auto) Absolute Nucleated RBC Nucleated RBC % (auto) ESR Hold Blue Top Sodium Potassium Chloride Carbon Dioxide Anion Gap BUN Creatinine Estim Creat Clear Calc Estimated GFR POC Glucose 332 H 411 H* 205 H Random Glucose Fasting Glucose Lactic Acid Calcium C-Reactive Protein Vancomycin Trough 05/07/20 05/07/20 05/07/20 05:51 05:51 05:51 WBC Cancelled 6.9 RBC Cancelled 3.41 L Hgb Cancelled 8.9 L Hct Cancelled 27.4 L MCV Cancelled 80.4 MCH Cancelled 26.1 L MCHC Cancelled 32.5 RDW Cancelled 14.2 Plt Count Cancelled 261 MPV Cancelled 10.1 Immature Gran % (Auto) Cancelled 0.4 Neut % (Auto) Cancelled 71.4 Lymph % (Auto) Cancelled 19.6 L [place] % (Auto) Cancelled 6.0 Eos % (Auto) Cancelled 2.3 Baso % (Auto) Cancelled 0.3 Lymph # (Auto) Cancelled 1.4 [place] # (Auto) Cancelled 0.4 Eos # (Auto) Cancelled 0.2 Baso # (Auto) Cancelled 0.0 Abs Immat Gran (auto) Cancelled 0.03 Absolute Neuts (auto) Cancelled 4.9 Absolute Nucleated RBC Cancelled 0.000 Nucleated RBC % (auto) Cancelled 0.0 ESR Hold Blue Top Sodium Cancelled Potassium Cancelled Chloride Cancelled Carbon Dioxide Cancelled Anion Gap Cancelled BUN Cancelled Creatinine Cancelled Estim Creat Clear Calc Cancelled Estimated GFR Cancelled POC Glucose Random Glucose Cancelled Fasting Glucose Lactic Acid Calcium Cancelled C-Reactive Protein Vancomycin Trough 05/07/20 05/07/20 05/07/20 05:51 07:12 11:11 WBC RBC Hgb Hct MCV MCH MCHC RDW Plt Count MPV Immature Gran % (Auto) Neut % (Auto) Lymph % (Auto) [place] % (Auto) Eos % (Auto) Baso % (Auto) Lymph # (Auto) [place] # (Auto) Eos # (Auto) Baso # (Auto) Abs Immat Gran (auto) Absolute Neuts (auto) Absolute Nucleated RBC Nucleated RBC % (auto) ESR Hold Blue Top Sodium 134 L Potassium 5.9 H D Chloride 93 L Carbon Dioxide 32 H Anion Gap 15 BUN 13 Creatinine 0.92 Estim Creat Clear Calc 118.2 Estimated GFR > 60 POC Glucose 316 H 377 H* Random Glucose Fasting Glucose 343 H Lactic Acid Calcium 8.7 C-Reactive Protein Vancomycin Trough 05/07/20 05/07/20 05/07/20 13:02 16:24 20:47 WBC RBC Hgb Hct MCV MCH MCHC RDW Plt Count MPV Immature Gran % (Auto) Neut % (Auto) Lymph % (Auto) [place] % (Auto) Eos % (Auto) Baso % (Auto) Lymph # (Auto) [place] # (Auto) Eos # (Auto) Baso # (Auto) Abs Immat Gran (auto) Absolute Neuts (auto) Absolute Nucleated RBC Nucleated RBC % (auto) ESR Hold Blue Top Sodium Potassium Chloride Carbon Dioxide Anion Gap BUN Creatinine Estim Creat Clear Calc Estimated GFR POC Glucose 311 H 380 H* Random Glucose Fasting Glucose Lactic Acid Calcium C-Reactive Protein Vancomycin Trough 7.9 L 05/08/20 05/08/20 05/08/20 05:31 05:31 07:06 WBC 5.7 RBC 3.34 L Hgb 8.6 L Hct 26.9 L MCV 80.5 MCH 25.7 L MCHC 32.0 RDW 14.3 Plt Count 260 MPV 10.3 Immature Gran % (Auto) 0.4 Neut % (Auto) 65.1 Lymph % (Auto) 23.1 [place] % (Auto) 8.4 Eos % (Auto) 2.6 Baso % (Auto) 0.4 Lymph # (Auto) 1.3 [place] # (Auto) 0.5 Eos # (Auto) 0.2 Baso # (Auto) 0.0 Abs Immat Gran (auto) 0.02 Absolute Neuts (auto) 3.7 Absolute Nucleated RBC 0.000 Nucleated RBC % (auto) 0.0 ESR Hold Blue Top Sodium 132 L Potassium 4.8 Chloride 92 L Carbon Dioxide 32 H Anion Gap 13 BUN 13 Creatinine 0.86 Estim Creat Clear Calc 126.4 Estimated GFR > 60 POC Glucose 410 H* Random Glucose Fasting Glucose 410 H* Lactic Acid Calcium 8.3 L C-Reactive Protein Vancomycin Trough 05/08/20 05/08/20 05/08/20 11:14 12:50 16:12 WBC RBC Hgb Hct MCV MCH MCHC RDW Plt Count MPV Immature Gran % (Auto) Neut % (Auto) Lymph % (Auto) [place] % (Auto) Eos % (Auto) Baso % (Auto) Lymph # (Auto) [place] # (Auto) Eos # (Auto) Baso # (Auto) Abs Immat Gran (auto) Absolute Neuts (auto) Absolute Nucleated RBC Nucleated RBC % (auto) ESR Hold Blue Top Sodium Potassium Chloride Carbon Dioxide Anion Gap BUN Creatinine Estim Creat Clear Calc Estimated GFR POC Glucose 322 H 315 H Random Glucose Fasting Glucose Lactic Acid Calcium C-Reactive Protein Vancomycin Trough 16.1 05/08/20 05/09/20 20:55 07:29 WBC RBC Hgb Hct MCV MCH MCHC RDW Plt Count MPV Immature Gran % (Auto) Neut % (Auto) Lymph % (Auto) [place] % (Auto) Eos % (Auto) Baso % (Auto) Lymph # (Auto) [place] # (Auto) Eos # (Auto) Baso # (Auto) Abs Immat Gran (auto) Absolute Neuts (auto) Absolute Nucleated RBC Nucleated RBC % (auto) ESR Hold Blue Top Sodium Potassium Chloride Carbon Dioxide Anion Gap BUN Creatinine Estim Creat Clear Calc Estimated GFR POC Glucose 528 H* 307 H Random Glucose Fasting Glucose Lactic Acid Calcium C-Reactive Protein Vancomycin Trough Airway Mallampati Class: IV TM Dist: >3cm Neck ROM: Full Denture: Upper and Lower Heart: rrr Lungs: clear Assessment and Plan Assessment Anesthesia Assessment: Anesthesia Plan Discussed Final Anesthetic Review NPO: Yes ASA Class: II Final Preanesthetic Review: No Changes in Pt Med Stat, Meds/Allgs Chart Reviewed, Consent Obtained/Reviewed and Anes Risks/Benef Reviewed Patient Risk: Low Procedure Risk: Low Anesthetic Plan Anesthetic Plan: GA and Regional Block Disposition: Standard PACU
[2020-05-09] MEDS: cefTRIAXone sodium 2 GM in 0.9 % Sodium Chloride 50 ML IV (12:09)
--- NOTE | 2020-05-09 12:14 | PC.NURSE ---
OKAY TO GIVE CEFTRIAXONE 2GRAMS PREOP PER MD PARK
--- NOTE | 2020-05-09 13:00 | CA_ITS ---
Transthoracic Echocardiogram Patient (Last, First, Middle): Paulo Umana E Gender: Male Date of : 1985 Age: 34 Procedure Date: 05/09/2020 Procedure Type: Transthoracic Echocardiogram Location: [facility] [place] Height: 180.34 cm Weight: 81.65 kg BSA: 2.02 m2 Heart Rate: bpm BP: 124 / 80 mmHg Inbound Telemarketer: Referring MD: Katarina Bates MD Tufting Creeler: Greg Luu MD Symptoms: rule out endocarditis strep agalactie bacteremia Study Quality: Good ECG Rhythm: Sinus Conclusions: - Essentially normal study with no clear vegetations appreciated on this study Findings Left Ventricle Normal left ventricular size, thickness, and systolic function. The visually estimated ejection fraction is between 60-65%. Diastolic function is normal for age. Right Ventricle Normal right ventricular cavity size and systolic function. Atria Both atria are normal in size. There is no evidence of interatrial shunt. Aortic Valve There is no aortic valve stenosis. There is no aortic valve regurgitation. The non coronary cusp appears taken but there is no clear mobile mass consistent with vegetation appreciated. Mitral Valve There is mild anterior mitral leaflet thickening. There is trace mitral valve regurgitation. There is no mitral valve stenosis. No clear mobile mass consistent with vegetation noted. Pulmonic Valve The pulmonic valve is likely normal. Tricuspid Valve Normal tricuspid valve structure. There is trace tricuspid valve regurgitation. The right ventricular systolic pressure is normal. The right ventricular systolic pressure is 18 mmHg. Normal right atrial pressure. There is no evidence of pulmonary hypertension. Great Vessels All visible segments of the aorta are normal in size. The pulmonary artery was not well visualized. Venous The inferior vena cava is normal in size and collapses greater than 50% with inspiration. Pericardium/Pleural There is no evidence of pericardial effusion. Prior Study Comparison No significant change compared to prior study dated: 11/16/2019. Recommendations, Care & Conclusions Consider a CHAYA if clinically appropriate. Measurements 2D Linear Measurements IVSd: 1.02 0.6-0.9/0.6-1.0 cm LVIDd: 4.62 3.9-5.3/4.2-5.9 cm LVIDd Index: 2.29 2.4-3.2/2.2-3.1 cm/m2 LVIDs: 2.68 2.0-3.6 cm LVPWd: 1.08 0.7-1.1 cm Ao Root: 3.00 2.1-3.5 cm LA Diam: 3.30 2.7-3.8/3.0-4.0 cm LAIDs Index: 1.63 1.5-2.3 cm/m2 LV Mass: 213.05 67-162/88-224 g LV Mass Index: 105.47 43-95/49-115 g/m2 LVOT Diam: 2.10 3.0+(-)1.3 cm Mitral Valve MV Pk E: 1.32 MV PK A: 0.78 MV Decel Time: 226.00 E/A: 1.70 E'Lateral: 13.90 E'Medial: 9.25 E/E' Med: 14.30 E/E' Lat: 9.50 PHT: 66.00 MVA PHT: 3.33 Decel Moca: 5.85 Aortic Valve AoV Pk Deni: 1.51 AoV Mn Deni: 1.13 AoV VTI: 0.39 AoV Pk Grad: 9.00 Aov Mn Grad: 6.00 TREASURE Cont.VTI: 2.07 LVOT LVOT Pk Deni: 1.10 LVOT Mn Deni: 0.69 LVOT VTI: 0.24 LVOT Pk Grad: 5.00 LVOT Mn Grad: 2.00 LVOT Diam: 2.10 LVOT Area: 3.46 Diastolic Function MV Pk E: 1.32 MV Pk A: 0.78 E/A: 1.70 E'Medial: 9.25 E/E' Med: 14.30 E' Laterial: 13.90 E/E' Lat: 9.50 Tricuspid Valve TR Pk Deni: 1.96 TR Pk Grad: 15.00 RA Press: 3.00 RVSP: 18.00 Great Vessels Aorta Ao Root-2D: 3.00 2.0-3.7 cm Ao Asc: 3.10 2.1-3.4 cm Pulmonary Valve PV Pk Deni: 1.11 Peak PV Grad: 5.00 Updated in Other Vendor System with Status of Final Greg Luu MD electronically signed on 05/10/2020 10:24:45 AM with status of Final
--- NOTE | 2020-05-09 13:14 | HO.PM.IMPN ---
Subjective Subjective Date of Service: 05/09/20 Interval History: patient complaints of foot pain, tolerating diabetic diet noted to have elevated blood sugars this a.m. patient is NPO for transmetatarsal amputation today. Review of Systems General no headache no dizziness, no fever , nochills. CVS no chest pain, no palpitation. Respiratory no cough, no shortness of breath Gastrointestinal no nausea, no vomiting, no abdominal pain Physical Exam Vital Signs: Vital Signs: Vital Signs Temp Pulse Resp BP Pulse Ox 05/09/20 10:49 97.1 F 73 16 130/79 97 05/09/20 08:00 98.2 F 72 20 135/79 96 05/08/20 23:05 98.1 F 75 20 122/68 97 05/08/20 15:07 98.2 F 71 18 134/77 98 Body Mass Index 27.4 General patient resting comfortably,no acute distress. Neck is supple no JVD. CVS regular rate rhythm, Respiratory lungs clear to auscultation, no respiratory distress, no wheeze, no rhonchi. Gastrointestinal abdomen soft, nontender, bowel sounds audible. Extremities left foot with 2 open wounds plantar aspect measuring 2.5 and 2.8 centimetre, right foot with an open wound 1st metatarsal head with exposed bone and purulent drainage dressings placed no palpable pedal pulses on both feet Neuro nonfocal Skin no rash Objective Data Current Medications Generic Name Dose Route Start Last Admin Trade Name Freq PRN Reason Stop Dose Admin Acetaminophen 650 mg 05/06/20 04:04 Acetaminophen 325 Mg Tablet PO Q6H PRN Pain, Mild (Pain Scale 1-3) Acetaminophen 650 mg 05/09/20 12:06 Acetaminophen 325 Mg Tablet PO ONCE PRN Pain, Mild (Pain Scale 1-3) Albuterol Sulfate 2.5 mg 05/09/20 12:06 Albuterol Sulfate (0.083%) 2.5 Mg/3 Ml Vial.Neb INHALE ONCE PRN Wheezing Enoxaparin Sodium 40 mg 05/06/20 04:04 05/09/20 03:13 Enoxaparin Sodium 40 Mg/0.4 Ml Syringe SUBCUT 40 mg Q24H DAYNA Administration Fentanyl 50 mcg 05/09/20 12:06 Fentanyl Citrate/Pf 100 Mcg/2 Ml Vial IVPUSH Q5M PRN Pain, Severe (Pain Scale 7-10) Ferrous Sulfate 324 mg 05/07/20 09:00 05/09/20 07:50 Ferrous Sulfate 324 Mg Tablet.Dr PO 324 mg DAILY DAYNA Administration Gabapentin 600 mg 05/06/20 15:00 05/09/20 07:50 Gabapentin 600 Mg Tablet PO 600 mg TID DAYNA Administration Hydromorphone HCl 0.25 mg 05/09/20 12:06 Hydromorphone Hcl 0.5 Mg/0.5 Ml Syringe IVPUSH Q5M PRN Pain, Severe (Pain Scale 7-10) Ceftriaxone Sodium 2 gm/ 50 mls @ 100 mls/hr 05/09/20 12:00 05/09/20 12:09 Sodium Chloride IV 100 mls/hr Q24H [facility] Administration Insulin Glargine 18 unit 05/09/20 09:00 05/09/20 09:10 Insulin Glargine,Hum.Rec.Anlog 100 Unit/Ml 10 Ml Vial SUBCUT Not Given BID [facility] Insulin Human Lispro 0 unit 05/06/20 07:30 05/09/20 12:26 Insulin Lispro 100 Unit/Ml 3 Ml Vial SUBCUT Not Given QIDACHS [facility] Protocol Methadone HCl 30 mg 05/07/20 10:15 05/09/20 07:50 Methadone Hcl 1 Mg/0.1 Ml Oral.Conc PO 30 mg DAILY [facility] Administration Ondansetron HCl 4 mg 05/06/20 04:04 Ondansetron Hcl 4 Mg/2 Ml Vial IVPUSH Q8H PRN Nausea and Vomiting Ondansetron HCl 4 mg 05/09/20 12:06 Ondansetron Hcl 4 Mg/2 Ml Vial IVPUSH ONCE PRN Nausea and Vomiting Oxycodone HCl 5 mg 05/09/20 10:06 Oxycodone Hcl Immed Release 5 Mg Tablet PO Q4H PRN moderate pain Pharmacy Consult 1 each 05/06/20 02:07 Consult Rx Perform Med Rec MISCELLANE ONCE PRN Consult order Sodium Chloride 3 ml 05/06/20 08:00 05/09/20 07:51 0.9 % Sodium Chloride Flush 3 Ml Syringe IVFLUSH 3 ml QSHIFT [facility] Administration Labs CBC & Chem 7: 05/08/20 05:31 05/08/20 05:31 Microbiology Microbiology Results: Microbiology 05/06/20 00:45 Blood - Venous Blood Culture - Preliminary Strep agalactiae (Grp B) 05/06/20 00:46 Blood - Venous Blood Culture - Preliminary No growth after 48 hours. Assessment and Plan (1) Osteomyelitis of ankle or foot, right, acute: Status: Acute (2) Diabetes: Status: Acute (3) Anemia: Status: Acute (4) Non-healing ulcer of right foot: Problem details: He has chronic osteomyelitis with acute exacerbation right foot MRI likely to show same Status: Acute (5) Ulcer of left foot: Status: Acute Assessment and Plan: Diabetic foot wound/osteomyelitis patient has had no fever chills and MRI of foot shows findings suggestive of Right foot osteomyelitis of 1st and 2nd metatarsal and question of osteomyelitis distal ends of 3rd, 4th and 5th metatarsals patient is scheduled for revision of transmetatarsal amputation by Dr. Mendoza today on IV antibiotic cefepime and vancomycin day 3 12 blood culture positive for group B strep agalactie case discussed with Dr. Lira she recommend IV ceftriaxone and then transitioned to by mouth Ceftin 500 mg b.i.d. for total 14 days will obtain an echocardiogram to rule out endocarditis will discontinue current antibiotics cefepime and Vanco. will add oxycodone for pain control and continue methadone. DM blood sugar around 300 this morning, will adjust dose of Lantus and continue insulin sliding scale and diabetic diet , will hold metformin. anemia of chronic disease low hematocrit will repeat CBC after surgery and transfuse as needed. DVT prophylaxis on Lovenox
--- NOTE | 2020-05-09 13:31 | PM.EVENT ---
Event Note Event Note: Patient is status post revision of right transmetatarsal amputation. Proximal bone margin sent for culture. Plan for dressing change on Tuesday.
[2020-05-09] MEDS: fentaNYL citrate/PF 100 MCG/2 ML VIAL 50 MCG IVPUSH ×2 (13:34→13:51)
[2020-05-09] MEDS: Acetaminophen 325 MG TABLET 650 MG PO (13:37)
[2020-05-09] MEDS: oxyCODONE HCl Immed Release 5 MG TABLET PO ×2 (14:00→21:40)
--- NOTE | 2020-05-09 16:18 | PM.IDPN ---
Subjective Subjective Date of Service: 05/09/20 Interval History: patient at surgery amputation,not in room Objective Data Labs CBC & Chem 7: 05/08/20 05:31 05/08/20 05:31 Labs: Laboratory Results - last 24 hr 05/08/20 05/08/20 05/09/20 16:12 20:55 07:29 POC Glucose 315 H 528 H* 307 H Microbiology Microbiology Results: Microbiology 05/09/20 12:45 Foot Right Gram Stain - Final 05/06/20 00:45 Blood - Venous Blood Culture - Preliminary Strep agalactiae (Grp B) 05/06/20 00:46 Blood - Venous Blood Culture - Preliminary No growth after 48 hours. Physical Exam Vital Signs: Vital Signs: Vital Signs Temp Pulse Resp BP Pulse Ox 05/09/20 15:15 97.6 F 65 16 108/59 L 97 05/09/20 14:55 97.6 F 68 122/77 99 05/09/20 14:26 65 14 108/64 96 05/09/20 14:10 97.7 F 65 10 L 97 05/09/20 13:55 66 9 L 117/73 96 05/09/20 13:34 12 05/09/20 13:25 67 10 L 128/80 100 05/09/20 13:20 63 7 L 128/81 100 05/09/20 13:15 63 8 L 122/77 100 05/09/20 13:10 98.5 F 64 16 128/82 100 05/09/20 10:49 97.1 F 73 16 130/79 97 05/09/20 08:00 98.2 F 72 20 135/79 96 05/08/20 23:05 98.1 F 75 20 122/68 97 Body Mass Index 27.4 Assessment and Plan Assessment and plan (1) Osteomyelitis of ankle or foot, right, acute: Problem details: Patient with Group B strep bacteremia Status: Acute Assessment and Plan: Plan to give Ceftriaxone for now,po Ceftin 500 mg bid on discharge cover above for two weeks as long as echo is normal (check echo) Time Spent With Patient Time: Total time spent is greater than 50% in coordination of care (as documented) at patient's floor/unit and/or counseling patient: Time with patient: less than 15 minutes
[2020-05-09 16:25] LABS: Vancomycin Trough 14.9 mcg/mL (10.0-20.0)
[2020-05-09 16:48] LABS: Glucose, Whole Blood 243 mg/dL (60-115)
--- NOTE | 2020-05-09 17:07 | OP_ITS ---
SURGEON: Earle Mendoza MD INDICATIONS: Paulo is a 34-year-old gentleman with a nonhealing transmetatarsal amputation site along the first metatarsal on the plantar aspect. There is a large nonhealing ulcer. He now presents for operative intervention. Risks, benefits, and complications were discussed in detail with the patient. He understood and consented. PREOPERATIVE DIAGNOSIS: POSTOPERATIVE DIAGNOSIS: PROCEDURE PERFORMED: Revision of transmetatarsal amputation. ESTIMATED BLOOD LOSS: 20 mL. COMPLICATIONS: ANESTHESIA: General. ASSISTANTS: SPECIMENS: Two. 1. Bone pathology. 2. Proximal first metatarsal bone culture. PREPROCEDURE DIAGNOSES: 1. Osteomyelitis. 2. Nonhealing right foot ulcer. POSTPROCEDURE DIAGNOSES: 1. Osteomyelitis. 2. Nonhealing right foot ulcer. DESCRIPTION OF PROCEDURE: The patient was brought to the operating room, prior to which timeout was called for patient identification and site verification. Right foot was prepped and draped in standard surgical fashion. Incision was carried out over the transmetatarsal flap incision line. We encircled the open ulceration and this was excised in its entirety. We then brought it back with a Swink elevator and we resected the periosteal tissue and once that was done, we got back to normal healthy looking bone that did not appear fractured and this was on the 1st and 2nd metatarsal. It was then with a power saw was resected back. Once that was done, it was then subsequently filed down. Then, adequate hemostasis was achieved, irrigated out with vancomycin irrigation and then deep layer was reapproximated using 2-0 Vicryl, superficial layer with 2-0 nylon, and finally a sterile dressing. At the end of the case, sponge, needle, instrument counts were correct. The patient tolerated the procedure well, returned to Recovery with stable vitals. DRAINS: None. MD NATALIE Gandara/VINIL / [phone]
[2020-05-09] MEDS: Insulin Lispro 100 UNIT/ML 3 ML VIAL SUBCUT ×2 (17:24→21:40)
[2020-05-09 20:52] LABS: Glucose, Whole Blood 483 mg/dL (60-115)
[2020-05-09] MEDS: Insulin Glargine,Hum.rec.anlog 100 UNIT/ML 10 ML VIAL 18 UNIT SUBCUT (21:40)
[2020-05-09] MEDS: Insulin Lispro 100 UNIT/ML 3 ML VIAL 10 UNIT SUBCUT (22:11)
[2020-05-10] MEDS: Enoxaparin Sodium 40 MG/0.4 ML SYRINGE SUBCUT (05:00)
[2020-05-10] MEDS: oxyCODONE HCl Immed Release 5 MG TABLET PO ×3 (05:00→16:35)
[2020-05-10 06:00] VITALS: BMI 26.3
--- NOTE | 2020-05-10 07:56 | HO.POSTANES ---
Post Anesthesia Evaluation Post Anesthesia Evaluation Vital Signs: Vital Signs Temp Pulse Resp BP Pulse Ox 05/09/20 23:50 98.1 F 76 18 139/73 100 05/09/20 23:13 98.1 F 76 18 139/73 100 Anesthesia: General LMA Mental Status: Awake Pain Control: Satisfactory Nausea/Vomiting: None Hydration: Adequate Anesthesia-Related Issues: No Anes. Related Issues
[2020-05-10 08:00] VITALS: BP 140/70; PULSE 78; RESP 20; TEMP 36.3; O2SAT 98
[2020-05-10 08:45] LABS: Glucose, Whole Blood 228 mg/dL (60-115)
[2020-05-10] MEDS: Ferrous Sulfate 324 MG TABLET.DR PO (08:47)
[2020-05-10] MEDS: Insulin Lispro 100 UNIT/ML 3 ML VIAL SUBCUT ×4 (08:47→20:34)
[2020-05-10] MEDS: Insulin Glargine,Hum.rec.anlog 100 UNIT/ML 10 ML VIAL 18 UNIT SUBCUT ×2 (08:47→20:33)
[2020-05-10] MEDS: Gabapentin 600 MG TABLET PO ×3 (08:47→20:33)
[2020-05-10] MEDS: 0.9 % Sodium Chloride Flush 3 ML SYRINGE IVFLUSH ×3 (08:47→20:34)
[2020-05-10 11:50] LABS: Glucose, Whole Blood 194 mg/dL (60-115)
[2020-05-10] MEDS: cefTRIAXone sodium 2 GM in 0.9 % Sodium Chloride 50 ML IV (12:08)
--- NOTE | 2020-05-10 13:44 | HO.PM.IMPN ---
Subjective Subjective Date of Service: 05/10/20 Interval History: patient offers no acute complaints right foot pain is stable, patient tolerated surgery fairly well no issues postprocedure blood sugars remain elevated but better control in last 24 hours. Review of Systems General no headache no dizziness no fever chills. CVS no chest pain, no palpitation. Respiratory no cough no sputum production no respiratory distress. Gastrointestinal no nausea no vomiting, no abdominal pain Physical Exam Vital Signs: Vital Signs: Vital Signs Temp Pulse Resp BP Pulse Ox 05/10/20 08:00 97.4 F 78 20 140/70 H 98 05/09/20 23:50 98.1 F 76 18 139/73 100 05/09/20 23:13 98.1 F 76 18 139/73 100 05/09/20 19:19 97.7 F 81 18 121/58 L 95 05/09/20 16:00 18 05/09/20 15:15 97.6 F 65 16 108/59 L 97 05/09/20 14:55 97.6 F 68 122/77 99 05/09/20 14:26 65 14 108/64 96 05/09/20 14:10 97.7 F 65 10 L 97 05/09/20 13:55 66 9 L 117/73 96 Body Mass Index 26.3 General patient resting comfortably,no acute distress. Neck is supple no JVD. CVS regular rate rhythm, Respiratory lungs clear to auscultation, no respiratory distress, no wheeze, no rhonchi. Gastrointestinal abdomen soft, nontender, bowel sounds audible. Extremities left foot with 2 open wounds plantar aspect measuring 2.5 and 2.8 centimetre, right foot Dressing in place, no drainage Neuro nonfocal Skin no rash Objective Data Current Medications Generic Name Dose Route Start Last Admin Trade Name Freq PRN Reason Stop Dose Admin Acetaminophen 650 mg 05/06/20 04:04 Acetaminophen 325 Mg Tablet PO Q6H PRN Pain, Mild (Pain Scale 1-3) Enoxaparin Sodium 40 mg 05/06/20 04:04 05/10/20 05:00 Enoxaparin Sodium 40 Mg/0.4 Ml Syringe SUBCUT 40 mg Q24H DAYNA Administration Ferrous Sulfate 324 mg 05/07/20 09:00 05/10/20 08:47 Ferrous Sulfate 324 Mg Tablet.Dr PO 324 mg DAILY DAYNA Administration Gabapentin 600 mg 05/06/20 15:00 05/10/20 08:47 Gabapentin 600 Mg Tablet PO 600 mg TID DAYNA Administration Ceftriaxone Sodium 2 gm/ 50 mls @ 100 mls/hr 05/09/20 12:00 05/10/20 12:38 Sodium Chloride IV Infused Q24H DAYNA Infusion Insulin Glargine 18 unit 05/09/20 09:00 05/10/20 08:47 Insulin Glargine,Hum.Rec.Anlog 100 Unit/Ml 10 Ml Vial SUBCUT 18 unit BID DAYNA Administration Insulin Human Lispro 0 unit 05/06/20 07:30 05/10/20 12:08 Insulin Lispro 100 Unit/Ml 3 Ml Vial SUBCUT 2 unit QIDACHS [facility] [place] Administration Protocol Methadone HCl 30 mg 05/07/20 10:15 05/10/20 08:47 Methadone Hcl 1 Mg/0.1 Ml Oral.Conc PO 30 mg DAILY DAYNA Administration Ondansetron HCl 4 mg 05/06/20 04:04 Ondansetron Hcl 4 Mg/2 Ml Vial IVPUSH Q8H PRN Nausea and Vomiting Oxycodone HCl 5 mg 05/09/20 10:06 05/10/20 12:08 Oxycodone Hcl Immed Release 5 Mg Tablet PO 5 mg Q4H PRN Administration moderate pain Pharmacy Consult 1 each 05/06/20 02:07 Consult Rx Perform Med Rec MISCELLANE ONCE PRN Consult order Sodium Chloride 3 ml 05/06/20 08:00 05/10/20 08:47 0.9 % Sodium Chloride Flush 3 Ml Syringe IVFLUSH 3 ml QSHIFT [facility] [place] Administration Labs CBC & Chem 7: 05/08/20 05:31 05/08/20 05:31 Microbiology Microbiology Results: Microbiology 05/09/20 12:45 Foot Right Gram Stain - Final 05/09/20 12:45 Foot Right Routine Culture - Preliminary Culture in progress. 05/06/20 00:45 Blood - Venous Blood Culture - Preliminary Strep agalactiae (Grp B) 05/06/20 00:46 Blood - Venous Blood Culture - Preliminary No growth after 48 hours. Assessment and Plan (1) Osteomyelitis of ankle or foot, right, acute: Problem details: Patient with Group B strep bacteremia Status: Acute (2) Diabetes: Status: Acute (3) Anemia: Status: Acute (4) Non-healing ulcer of right foot: Problem details: He has chronic osteomyelitis with acute exacerbation right foot MRI likely to show same Status: Acute (5) Ulcer of left foot: Status: Acute Assessment and Plan: Diabetic foot wound/osteomyelitis patient has had no fever chills and MRI of foot shows findings suggestive of Right foot osteomyelitis of 1st and 2nd metatarsal and question of osteomyelitis distal ends of 3rd, 4th and 5th metatarsals patient underwent revision of transmetatarsal amputation by Dr. Mendoza postprocedure patient is doing well good pain control. on IV ceftriaxone day 2 s/p iv cefepime and vancomycin x 3 days, 1/ blood culture positive for group B strep agalactie case discussed with Dr. Lira she recommend IV ceftriaxone and then transitioned to by mouth Ceftin 500 mg b.i.d. for total 14 days ,echocardiogram pending continue oxycodone for pain control and continue methadone. dressing changes as per Dr. Mendoza will obtain PT eval prior to discharge. DM blood sugar around 300 this morning, will adjust dose of Lantus and continue insulin sliding scale and diabetic diet , will hold metformin. anemia of chronic disease low hematocrit but stable will hold transfusion. DVT prophylaxis on Lovenox
[2020-05-10 14:59] VITALS: BP 130/76; PULSE 79; RESP 18; TEMP 36.8; O2SAT 95
[2020-05-10 15:04] VITALS: BP 130/76; PULSE 79; RESP 18; TEMP 36.8; O2SAT 95
[2020-05-10 16:10] LABS: Glucose, Whole Blood 207 mg/dL (60-115)
--- NOTE | 2020-05-10 18:43 | PC.NURSE ---
Pt requested l foot dsg to be changed. Told pt that I would have to talk with MD. Went into room and found pt changing dsg himself. educated pt on importance of keeping it clean.
[2020-05-10 19:52] VITALS: BP 125/73; PULSE 91; RESP 20; TEMP 36.3; O2SAT 95
[2020-05-10 20:42] LABS: Glucose, Whole Blood 336 mg/dL (60-115)
[2020-05-11] MEDS: Enoxaparin Sodium 40 MG/0.4 ML SYRINGE SUBCUT (05:03)
[2020-05-11 06:00] VITALS: BMI 26.4
[2020-05-11 06:54] LABS: MANUAL DIFF FLAG NO
[2020-05-11 07:13] LABS: Basophils Percent Auto 0.5 % (0-2); Eosinophils Absolute Auto 0.2 X10*3/uL (0.0-0.4); Eosinophils Percent Auto 3.6 % (0-4); Hematocrit 29.7 % (42-52); Hemoglobin 9.6 g/dl (14.0-18.0); Imm Gran Abs Auto 0.03 X10*3/uL (0.00-0.03); Imm Gran Pct Auto 0.5 % (0.0-0.4); Lymphocytes Absolute Auto 1.7 X10*3/uL (1.2-4.9); Lymphocytes Percent Auto 28.6 % (20-40); Mean Corpuscular HGB Conc 32.3 g/dl (31.0-36.0); Mean Corpuscular Hemoglobin 25.9 pg (27.0-33.0); Mean Corpuscular Volume 80.3 fL (80-98); Mean Platelet Volume 10.1 fL (9.4-12.4); Monocytes Absolute Auto 0.5 X10*3/uL (0.1-1.2); Monocytes Percent Auto 8.7 % (2-11); Neutrophils Absolute Auto 3.4 X10*3/uL (2.0-8.3); Neutrophils Percent Auto 58.1 % (45-73); Platelet Count 305 X10*3/uL (160-400); Red Cell Distribution Width 14.4 % (11.0-16.0); White Blood Count 5.9 X10*3/uL (4.8-10.8)
[2020-05-11 07:27] LABS: Anion Gap 14 (12-20); Blood Urea Nitrogen 16 mg/dL (9-16); Calcium 8.3 mg/dL (8.4-10.2); Carbon Dioxide 32 mmol/L (22-29); Chloride 95 mmol/L (96-108); Creatinine Clr Calc Pharmacy 104.5; Estimated Glomerular Filt Rate > 60; Glucose Random 376 mg/dL (60-115); Potassium 5.4 mmol/l (3.3-5.1); Sodium 136 mmol/L (135-145)
[2020-05-11 07:56] VITALS: BP 117/59; PULSE 72; TEMP 36.4; O2SAT 96
[2020-05-11 08:07] LABS: Glucose, Whole Blood 298 mg/dL (60-115)
[2020-05-11] MEDS: Insulin Glargine,Hum.rec.anlog 100 UNIT/ML 10 ML VIAL 18 UNIT SUBCUT (09:08)
[2020-05-11] MEDS: Insulin Lispro 100 UNIT/ML 3 ML VIAL SUBCUT ×4 (09:08→22:42)
[2020-05-11] MEDS: Gabapentin 600 MG TABLET PO ×3 (09:09→22:39)
[2020-05-11] MEDS: Ferrous Sulfate 324 MG TABLET.DR PO (09:09)
[2020-05-11 11:31] LABS: Glucose, Whole Blood 343 mg/dL (60-115)
[2020-05-11] MEDS: cefTRIAXone sodium 2 GM in 0.9 % Sodium Chloride 50 ML IV (12:31)
--- NOTE | 2020-05-11 13:59 | HO.PM.IMPN ---
Subjective Subjective Date of Service: 05/11/20 Interval History: patient is sitting comfortably offers no acute complaints good pain control right foot, blood sugars continue to be elevated around 300. Review of Systems General no headache, no dizziness , no fever chills. CVS no chest pain, no palpitation. Respiratory no cough, no shortness of breath. Gastrointestinal no nausea, no vomiting, no abdominal pain Physical Exam Vital Signs: Vital Signs: Vital Signs Temp Pulse Resp BP Pulse Ox 05/11/20 07:56 97.5 F 72 117/59 L 96 05/10/20 19:52 97.3 F 91 20 125/73 95 05/10/20 15:04 98.3 F 79 18 130/76 95 Body Mass Index 26.4 General patient resting comfortably,no acute distress. Neck is supple no JVD. CVS regular rate rhythm, Respiratory lungs clear to auscultation, no respiratory distress, no wheeze, no rhonchi. Gastrointestinal abdomen soft, nontender, bowel sounds audible. Extremities left foot with 2 open wounds plantar aspect measuring 2.5 and 2.8 centimetre, right foot Dressing in place, no drainage Neuro nonfocal Skin no rash Objective Data Current Medications Generic Name Dose Route Start Last Admin Trade Name Freq PRN Reason Stop Dose Admin Acetaminophen 650 mg 05/06/20 04:04 Acetaminophen 325 Mg Tablet PO Q6H PRN Pain, Mild (Pain Scale 1-3) Enoxaparin Sodium 40 mg 05/06/20 04:04 05/11/20 05:03 Enoxaparin Sodium 40 Mg/0.4 Ml Syringe SUBCUT 40 mg Q24H DAYNA Administration Ferrous Sulfate 324 mg 05/07/20 09:00 05/11/20 09:09 Ferrous Sulfate 324 Mg Tablet.Dr PO 324 mg DAILY DAYNA Administration Gabapentin 600 mg 05/06/20 15:00 05/11/20 09:09 Gabapentin 600 Mg Tablet PO 600 mg TID DAYNA Administration Ceftriaxone Sodium 2 gm/ 50 mls @ 100 mls/hr 05/09/20 12:00 05/11/20 13:01 Sodium Chloride IV Infused Q24H [facility] Infusion Insulin Glargine 18 unit 05/09/20 09:00 05/11/20 09:08 Insulin Glargine,Hum.Rec.Anlog 100 Unit/Ml 10 Ml Vial SUBCUT 18 unit BID DAYNA Administration Insulin Human Lispro 0 unit 05/06/20 07:30 05/11/20 12:13 Insulin Lispro 100 Unit/Ml 3 Ml Vial SUBCUT 8 unit QIDACHS [facility] Administration Protocol Methadone HCl 30 mg 05/07/20 10:15 05/11/20 09:09 Methadone Hcl 1 Mg/0.1 Ml Oral.Conc PO 30 mg DAILY [facility] Administration Ondansetron HCl 4 mg 05/06/20 04:04 Ondansetron Hcl 4 Mg/2 Ml Vial IVPUSH Q8H PRN Nausea and Vomiting Oxycodone HCl 5 mg 05/09/20 10:06 05/10/20 16:35 Oxycodone Hcl Immed Release 5 Mg Tablet PO 5 mg Q4H PRN Administration moderate pain Pharmacy Consult 1 each 05/06/20 02:07 Consult Rx Perform Med Rec MISCELLANE ONCE PRN Consult order Sodium Chloride 3 ml 05/06/20 08:00 05/11/20 09:16 0.9 % Sodium Chloride Flush 3 Ml Syringe IVFLUSH Not Given QSHIFT [facility] Labs CBC & Chem 7: 05/11/20 05:49 05/11/20 05:49 Microbiology Microbiology Results: Microbiology 05/09/20 12:45 Foot Right Gram Stain - Final 05/09/20 12:45 Foot Right Routine Culture - Preliminary Strep agalactiae (Grp B) 05/06/20 00:45 Blood - Venous Blood Culture - Final Strep agalactiae (Grp B) 05/06/20 00:46 Blood - Venous Blood Culture - Final No growth after 5 days. Assessment and Plan (1) Osteomyelitis of ankle or foot, right, acute: Problem details: Patient with Group B strep bacteremia Status: Acute (2) Diabetes: Status: Acute (3) Anemia: Status: Acute (4) Non-healing ulcer of right foot: Problem details: He has chronic osteomyelitis with acute exacerbation right foot MRI likely to show same Status: Acute (5) Ulcer of left foot: Status: Acute Assessment and Plan: Diabetic foot wound/osteomyelitis patient has had no fever chills and MRI of foot shows findings suggestive of Right foot osteomyelitis of 1st and 2nd metatarsal and question of osteomyelitis distal ends of 3rd, 4th and 5th metatarsals patient underwent revision of transmetatarsal amputation by Dr. Mendoza postoperative day 2 postprocedure patient is doing well good pain control. on IV ceftriaxone day 09/21 s/p iv cefepime and vancomycin x 3 days, 1/2 blood culture positive for group B strep agalactie case discussed with Dr. Lira she recommend IV ceftriaxone and then transitioned to by mouth Ceftin 500 mg b.i.d. for total 14 days ,echocardiogram showed no vegetation continue oxycodone for pain control and continue methadone. dressing changes as per Dr. Mendoza will obtain PT eval prior to discharge/ offloading boot. outpatient wound clinic follow up for left wound DM blood sugar around 300 this morning, will increase dose of Lantus to 20 units and continue insulin sliding scale and diabetic diet , resume metformin. anemia of chronic disease low hematocrit but stable will hold transfusion. DVT prophylaxis on Lovenox
[2020-05-11 15:52] VITALS: BP 158/78; PULSE 89; RESP 18; TEMP 36.6; O2SAT 98
[2020-05-11] MEDS: metFORMIN HCl 1,000 MG TABLET 1000 MG PO (17:16)
[2020-05-11] MEDS: 0.9 % Sodium Chloride Flush 3 ML SYRINGE IVFLUSH ×2 (17:18→22:42)
[2020-05-11 19:39] VITALS: BP 117/69; PULSE 83; RESP 18; TEMP 36.1; O2SAT 97
[2020-05-11] MEDS: oxyCODONE HCl Immed Release 5 MG TABLET PO (22:39)
[2020-05-11] MEDS: Insulin Glargine,Hum.rec.anlog 100 UNIT/ML 10 ML VIAL 20 UNIT SUBCUT (22:40)
[2020-05-12] VITALS: BP 115/59; PULSE 84; RESP 16; TEMP 36.8; O2SAT 96
[2020-05-12] MEDS: Enoxaparin Sodium 40 MG/0.4 ML SYRINGE SUBCUT (05:58)
[2020-05-12 05:59] VITALS: BMI 26.3
[2020-05-12 07:28] VITALS: BP 121/74; PULSE 71; RESP 18; TEMP 36.6; O2SAT 97
[2020-05-12 07:50] LABS: Glucose, Whole Blood 262 mg/dL (60-115)
[2020-05-12 08:02] VITALS: BP 121/74; PULSE 71; O2SAT 97
[2020-05-12 08:40] LABS: Glucose, Whole Blood 348 mg/dL (60-115)
[2020-05-12 08:40] LABS: Glucose, Whole Blood 260 mg/dL (60-115)
[2020-05-12] MEDS: Insulin Glargine,Hum.rec.anlog 100 UNIT/ML 10 ML VIAL 20 UNIT SUBCUT (08:54)
[2020-05-12] MEDS: Insulin Lispro 100 UNIT/ML 3 ML VIAL SUBCUT ×2 (08:56→12:56)
[2020-05-12] MEDS: metFORMIN HCl 1,000 MG TABLET 1000 MG PO (08:56)
[2020-05-12] MEDS: Ferrous Sulfate 324 MG TABLET.DR PO (08:57)
[2020-05-12] MEDS: 0.9 % Sodium Chloride Flush 3 ML SYRINGE IVFLUSH (08:57)
[2020-05-12] MEDS: Gabapentin 600 MG TABLET PO (08:57)
--- NOTE | 2020-05-12 11:10 | HO.VASCPN ---
Subjective Subjective Patient reports: no new complaints and feels better Interval history: Patient seen and examined. No events over the weekend. Patient is status post revision of transmetatarsal amputation. Appears to be doing relatively well. Pain is well controlled. He is now for follow-up wound examination. Physical Exam Vital Signs: Vital Signs: Vital Signs Temp Pulse Resp BP Pulse Ox 05/12/20 08:02 71 121/74 97 05/12/20 07:28 97.9 F 71 18 121/74 97 05/12/20 00:00 98.2 F 84 16 115/59 L 96 05/11/20 19:39 97.0 F 83 18 117/69 97 05/11/20 15:52 97.9 F 89 18 158/78 H 98 Body Mass Index 26.3 Const: General: cooperative, healthy appearing and no acute distress Orientation/consciousness: oriented to person, oriented to place and oriented to time HENMT: Head: Yes normal to inspection Neck: Carotids: no bruits Chest: Chest palpation & inspection: normal inspection of the chest Resp: Effort & Inspection: normal respiratory effort and able to speak in complete sentences Auscultation: clear to auscultation bilaterally Cardio: Rate: regular rate Heart sounds: S1 normal heart sound present and S2 normal heart sound present GI: Inspection: Yes normal to inspection Skin: General skin exam: no rashes or lesions noted Wounds: amputation site (Left trans met incision line appears to be healing well there is mild eryth) Neuro: General: oriented to person, oriented to place, oriented to time and CN's II-XI intact bilaterally Extrem: General: Yes normal to inspection, Yes full ROM and Yes no clubbing, cyanosis or edema Psych: Appearance: grossly normal and well kempt Speech and movement: Normal speech and movement present Affect: normal affect Progress Note: A&P Assessment and plan (1) S/P transmetatarsal amputation of foot: Status: Acute Assessment and Plan: Patient is status post revision of transmetatarsal amputation. Dressing was changed. It appears to be doing relatively well. There is some mild erythema associated with it. Proximal culture of bone which is the bone remaining behind is positive. Would recommend 6 weeks of IV antibiotics. Local wound care upon discharge includes: xeroform, 4x4 and kerlix wrap to be changed daily. Patient will see me in approximately 2 weeks for suture and staple removal. Thank you for allowing us to assist in his care. Offloading boot was ordered. Patient may be heel touch on discharge of left leg. Fall Risk Details Current Medications: Current Medications Generic Name Dose Route Start Last Admin Trade Name Freq PRN Reason Stop Dose Admin Acetaminophen 650 mg 05/06/20 04:04 Acetaminophen 325 Mg Tablet PO Q6H PRN Pain, Mild (Pain Scale 1-3) Enoxaparin Sodium 40 mg 05/06/20 04:04 05/12/20 05:58 Enoxaparin Sodium 40 Mg/0.4 Ml Syringe SUBCUT 40 mg Q24H DAYNA Administration Ferrous Sulfate 324 mg 05/07/20 09:00 05/12/20 08:57 Ferrous Sulfate 324 Mg Tablet.Dr PO 324 mg DAILY DAYNA Administration Gabapentin 600 mg 05/06/20 15:00 05/12/20 08:57 Gabapentin 600 Mg Tablet PO 600 mg TID DAYNA Administration Ceftriaxone Sodium 2 gm/ 50 mls @ 100 mls/hr 05/09/20 12:00 05/11/20 13:01 Sodium Chloride IV Infused Q24H DAYNA Infusion Insulin Glargine 20 unit 05/11/20 21:00 05/12/20 08:54 Insulin Glargine,Hum.Rec.Anlog 100 Unit/Ml 10 Ml Vial SUBCUT 20 unit BID DAYNA Administration Insulin Human Lispro 0 unit 05/06/20 07:30 05/12/20 08:56 Insulin Lispro 100 Unit/Ml 3 Ml Vial SUBCUT 6 unit QIDACHS DAYNA Administration Protocol Metformin HCl 1,000 mg 05/11/20 17:00 05/12/20 08:56 Metformin Hcl 1,000 Mg Tablet PO 1,000 mg BIDWM DAYNA Administration Methadone HCl 30 mg 05/07/20 10:15 05/12/20 08:56 Methadone Hcl 1 Mg/0.1 Ml Oral.Conc PO 30 mg DAILY DAYNA Administration Ondansetron HCl 4 mg 05/06/20 04:04 Ondansetron Hcl 4 Mg/2 Ml Vial IVPUSH Q8H PRN Nausea and Vomiting Oxycodone HCl 5 mg 05/09/20 10:06 05/11/20 22:39 Oxycodone Hcl Immed Release 5 Mg Tablet PO 5 mg Q4H PRN Administration moderate pain Pharmacy Consult 1 each 05/06/20 02:07 Consult Rx Perform Med Rec MISCELLANE ONCE PRN Consult order Sodium Chloride 3 ml 05/06/20 08:00 05/12/20 08:57 0.9 % Sodium Chloride Flush 3 Ml Syringe IVFLUSH 3 ml QSHIFT DAYNA Administration Time Spent With Patient Time: Total time spent is greater than 50% in coordination of care (as documented) at patient's floor/unit and/or counseling patient: Time with patient: 15 - 24 minutes
[2020-05-12 11:52] LABS: Glucose, Whole Blood 258 mg/dL (60-115)
--- NOTE | 2020-05-12 12:54 | P.DS_ITS ---
DS: Providers Provider Date of admission: 05/06/20 02:20 Primary care physician: Jose Manuel Alicea MD Consults: 05/06/20 04:04 Consult to General Surgery Routine Consulting Provider: Gloria Hernandez Reason for consultation: osteo Has provider been notified: No Consult to Infectious Diseases Routine Consulting Provider: Jacqueline Lira Reason for consultation: osteo Has provider been notified: No 05/08/20 09:03 Consult to Vascular Surgery Routine Consulting Provider: Earle Mercado Reason for consultation: Open wound, previous amputation, right foot Has provider been notified: Yes DS: Diagnosis Discharge Diagnosis (1) S/P transmetatarsal amputation of foot: Status: Acute DS: Summary Hospital Course Hospital Course: history of presenting illness chief complain right foot infection this is a 34-year-old male with past medical history of diabetes with complications including amputation of toes presents to the hospital with complaints of right foot wound. Patient is currently sleeping and I was unable to get much history from him therefore history is obtained from the ED [facility]. It appears the patient has chronic wounds of his right foott and has been following up with the wound clinic regularly but has missed his appointment for last week. he also follows up with Dr. mercado with plans to have him follow-up with General surgery. He comes today complaining that he has leaky wound in his right foot, and very smelly. Unable to obtain complete review of system on arrival to the ED hemodynamically stable with no significant abnormal vitals labs show hemoglobin of 8.7 which is closer to his recent baseline, glucose of 484, otherwise unremarkable. Right foot x-ray shows prominent soft tissue wound in the region of the distal 1st metatarsal. This appears to be exposed to air which raises high suspicious for osteomyelitis hospital course Diabetic foot wound/osteomyelitis patient has had no fever chills and MRI of foot showed findings suggestive of Right foot osteomyelitis of 1st and 2nd metatarsal and question of osteomyelitis distal ends of 3rd, 4th and 5th metatarsals patient underwent revision of transmetatarsal amputation by Dr. Mercado postprocedure patient is doing well good pain control. patient treated with IV ceftriaxone echocardiogram showed no vegetation 1/2 blood culture positive for group B strep agalactie , patient bone culture also showed group B strep therefore patient will need IV antibiotic for 6 weeks for osteomyelitis but patient decided to leave hospital against medical advice because he has to take care of his belongings at home and to put them at a storage place, patient has been made aware of risk of sepsis, risk of losing his foot he has been recommended to have heel touch only, patient is aware that by mouth antibiotic is a sub optimal treatment, patient needs to have daily dressing with Xeroform 4 x 4 with Kerlix dressing to be changed daily. patient has been informed to have outpatient follow-up with [facility] Dr. Mercado and primary care physician DM recommend to continue Lantus metformin and insulin sliding scale and diabetic diet. anemia of chronic disease low hematocrit but stable Time Spent with Patient Time attestation: Total time spent providing and/or coordinating discharge services: Physical Exam Vital Signs: Vital Signs: Vital Signs Temp Pulse Resp BP Pulse Ox 05/12/20 08:02 71 121/74 97 05/12/20 07:28 97.9 F 71 18 121/74 97 05/12/20 00:00 98.2 F 84 16 115/59 L 96 05/11/20 19:39 97.0 F 83 18 117/69 97 05/11/20 15:52 97.9 F 89 18 158/78 H 98 Body Mass Index 26.3 General patient resting comfortably,no acute distress. Neck is supple no JVD. CVS regular rate rhythm, Respiratory lungs clear to auscultation, no respiratory distress, no wheeze, no rhonchi. Gastrointestinal abdomen soft, nontender, bowel sounds audible. Extremities left foot with 2 open wounds plantar aspect measuring 2.5 and 2.8 centimetre, right foot Dressing in place, no drainage , suture in place with no drainage. Neuro nonfocal Skin no rash DS: Data Data Completed and Pending Pending studies at discharge: Pending at discharge 05/09/20 12:44 Surgical [PTH] Routine Labs on day of discharge: Labs from last 24 hours 05/12/20 05/12/20 05/11/20 11:49 07:47 21:09 POC Glucose 258 H 262 H 260 H 05/11/20 17:08 POC Glucose 348 H Preliminary micro results at discharge 05/09/20 12:45 Routine Culture - Preliminary Foot Right Strep agalactiae (Grp B) Staphylococcus aureus Discharge Plan Discharge Patient Disposition: Home, Self-Care Referrals: Croke,Jose Manuel, MD [Primary Care Provider] - Discharge Medications: New Lantus U-100 Insulin 100 unit/mL Solution 20 unit subcut BID Qty: 10 RF: 0 cefuroxime axetil 500 mg Tablet 500 mg PO Q12H Qty: 56 RF: 0 Continued ferrous sulfate 325 mg (65 mg iron) Tablet 325 mg PO DAILY RF: 0 metformin 500 mg Tablet 1,000 mg PO BID RF: 0 gabapentin 600 mg Tablet 600 mg PO TID RF: 0 insulin lispro [Admelog U-100 Insulin lispro] 100 unit/mL Solution 1 sliding scale dose SUBCUT USEASDIRECTD RF: 0 methadone 5 mg/5 mL Solution 30 mg PO DAILY RF: 0 Discharge Orders: Discharge Order (Routine); Ordered 05/12/20 Ordered By: Katarina Bates Diet: diabetic diet Activity on Discharge: heel touch Visit Report Forms: Patient Portal Discharge page Care Plan Goals: Return to [facility] with any worsening pain fever heel touch only continue daily dressing Health Concerns: right transmetatarsal surgery need wound care outpatient follow-up with Wound Clinic as well as Infectious Disease and vascular surgery keep area clean Plan of Treatment: patient going home against medical advice advised to take by mouth medication and to have close outpatient follow-up at wound clinic and keep wound clean.
[2020-05-12] MEDS: cefTRIAXone sodium 2 GM in 0.9 % Sodium Chloride 50 ML IV (12:57)
--- NOTE | 2020-05-12 13:17 | MHC.CM.PN ---
Patient is going home AMA.
== END 2020-05-12 17:00 | disposition home or self-care (01) | DRG 711 ==
LOC: HO.ED 05-06 02:13 → HO.IMC 05-06 02:35
PROVIDERS: Internal Medicine; Physician Assistant; Surgery Vascular Surgery; Admitting Provider Internal Medicine; Emergency Provider Emergency Medicine Emergency Medical Services; PCP Internal Medicine; Visit Provider Hospitalist
PROC: 0Y6M0Z9 Detachment at Right Foot, Partial 1st Ray, Open Approach (ICD-10-PCS; CPT 28805; principal; 2020-05-09 12:00)
DX: T81.49XA Infection following a procedure, other surgical site, initial encounter (principal); E11.42 Type 2 diabetes mellitus with diabetic polyneuropathy; E11.621 Type 2 diabetes mellitus with foot ulcer; M86.171 Other acute osteomyelitis, right ankle and foot; R78.81 Bacteremia; F11.20 Opioid dependence, uncomplicated; E11.65 Type 2 diabetes mellitus with hyperglycemia; E11.69 Type 2 diabetes mellitus with other specified complication; L97.422 Non-pressure chronic ulcer of left heel and midfoot with fat layer exposed; D63.8 Anemia in other chronic diseases classified elsewhere; L97.516 Non-pressure chronic ulcer of other part of right foot with bone involvement without evidence of necrosis; B95.1 Streptococcus, group B, as the cause of diseases classified elsewhere; Z79.4 Long term (current) use of insulin; Z79.899 Other long term (current) drug therapy
CPT/HCPCS: 36415; 73630; 73720; 80048; 80202; 82947; 83605; 85025; 85652; 86140; 87040; 87071; 87147; 87186; 87205; 88304; 88305; 88311; 93306; 96361; 96365; 96375; 97162; 99285; J0692; J0696; J1650; J1885; J2250; J2405; J3010; J3370

== ENCOUNTER 2020-05-17 00:08 | Inpatient (IN) | payer OTHER, SELFPAY ==
[2020-05-17] VITALS (9 sets, daily range): BP systolic 106–131; BP diastolic 58–80; PULSE 66–88; RESP 16–18; TEMP 36.1–36.8; O2SAT 66–98; BMI 25.1
--- NOTE | 2020-05-17 01:45 | ED.GENADULT ---
HPI - General Adult General Chief complaint: General Medical Stated complaint: INFECTION IN FOOT Time Seen by Provider: 05/17/20 01:44 Related Data Home Medications Medication Instructions Recorded Confirmed ferrous sulfate 325 mg PO DAILY 05/06/20 05/06/20 gabapentin 600 mg PO TID 05/06/20 05/06/20 insulin lispro [Admelog U-100 1 sliding scale dose SUBCUT 05/06/20 05/06/20 Insulin lispro] USEASDIRECTD metformin 1,000 mg PO BID 05/06/20 05/06/20 methadone 30 mg PO DAILY 05/07/20 05/07/20 Previous Rx's Medication Instructions Recorded cefuroxime axetil 500 mg PO Q12H #56 tab 05/12/20 insulin glargine [Lantus U-100 20 unit SUBCUT BID #10 ml 05/12/20 Insulin] Allergies Allergy/AdvReac Type Severity Reaction Status Date / Time No Known Allergies Allergy Verified 05/17/20 01:17 [No Known Allergies*] PMFSH Past Medical History Medical History Anemia Diabetes History of substance use Surgical History History of appendectomy History of carpal tunnel surgery of left wrist History 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 Family History Family History Mother Breast cancer CVD (cardiovascular disease) Diabetes Cancer Father Diabetes CVD (cardiovascular disease) Social History Social History Household Members: Friend(s) Housing: Apartment Smoking Status: Former smoker Tobacco Type: Cigarette Second Hand Smoke Exposure: No Advance Directives: No Advance Directives Information Provided: No service: No Current occupational status: disabled Physical Exam Vital Signs: Vital Signs: Last Vital Signs Temp 97.2 F 05/17/20 01:11 Pulse 68 05/17/20 02:00 Resp 16 05/17/20 02:00 BP 110/68 05/17/20 02:00 Pulse Ox 97 05/17/20 02:00 Body Mass Index 25.1 Appearance: Alert. Oriented X3. No acute distress. Eyes: Pupils equal, round and reactive to light. ENT: Pharynx normal. Neck: Normal inspection. Neck supple. No lymph nodes noted. No crepitus CVS: Normal heart rate and rhythm. Pulses normal. Normal S1 and S2 Respiratory: No respiratory distress. Breath sounds normal. No Wheezing. No rales Abdomen: Soft and nontender. No rigidity. No distention. good BS x4 Skin: Right foot shows michelle intact. There is redness surrounding the area. There is no gross discharge noted. Sensation intact. Pulses 2+ at dorsalis pedis. Extremities: No lower extremity edema. Neurovascular intact to all extremities. No Lacerations. No Rash Neuro: Oriented X 3. No motor deficit. No sensory deficit. Moving all extermities. No slurred speech Medical Decision Making MDM Narrative Medical decision making narrative: Patient have positive osteomyelitis left against medical advice 5 days ago. Patient has group B strep that is resistant to clindamycin. But sensitive to vancomycin. Patient also has MRSA that is sensitive to vancomycin. Will start patient on that. Currently in stable condition. Lab Data Result diagrams: 05/17/20 03:08 05/17/20 03:08 Labs: Lab Results 05/17/20 05/17/20 05/17/20 Range/Units 03:08 03:08 03:08 WBC 4.8 (4.8-10.8) X10*3/uL RBC 3.53 L (4.60-5.80) X10*6/uL Hgb 9.3 L (14.0-18.0) g/dl Hct 28.5 L (42-52) % MCV 80.7 (80-98) fL MCH 26.3 L (27.0-33.0) pg MCHC 32.6 (31.0-36.0) g/dl RDW 15.0 (11.0-16.0) % Plt Count 255 (160-400) X10*3/uL MPV 10.0 (9.4-12.4) fL Immature Gran % (Auto) 0.2 (0.0-0.4) % Neut % (Auto) 56.6 (45-73) % Lymph % (Auto) 32.1 (20-40) % [place] % (Auto) 6.8 (2-11) % Eos % (Auto) 3.7 (0-4) % Baso % (Auto) 0.6 (0-2) % Lymph # (Auto) 1.6 (1.2-4.9) X10*3/uL [place] # (Auto) 0.3 (0.1-1.2) X10*3/uL Eos # (Auto) 0.2 (0.0-0.4) X10*3/uL Baso # (Auto) 0.0 (0.0-0.2) X10*3/uL Abs Immat Gran (auto) 0.01 (0.00-0.03) X10*3/uL Absolute Neuts (auto) 2.7 (2.0-8.3) X10*3/uL Absolute Nucleated RBC 0.000 (0.0-0.012) X10*3/uL Nucleated RBC % (auto) 0.0 (0.0-0.2) /100WBC Sodium 135 (135-145) mmol/L Potassium 4.6 (3.3-5.1) mmol/l Chloride 96 (96-108) mmol/L Carbon Dioxide 31 H (22-29) mmol/L Anion Gap 13 (12-20) BUN 12 (9-16) mg/dL Creatinine 1.07 (0.5-1.4) mg/dL Estim Creat Clear Calc 100.6 Estimated GFR > 60 Random Glucose 432 H* (60-115) mg/dL Lactic Acid 1.6 (0.5-2.0) mmol/L Calcium 8.2 L (8.4-10.2) mg/dL Coronavirus (PCR) (Negative) 05/17/20 Range/Units 03:08 WBC (4.8-10.8) X10*3/uL RBC (4.60-5.80) X10*6/uL Hgb (14.0-18.0) g/dl Hct (42-52) % MCV (80-98) fL MCH (27.0-33.0) pg MCHC (31.0-36.0) g/dl RDW (11.0-16.0) % Plt Count (160-400) X10*3/uL MPV (9.4-12.4) fL Immature Gran % (Auto) (0.0-0.4) % Neut % (Auto) (45-73) % Lymph % (Auto) (20-40) % [place] % (Auto) (2-11) % Eos % (Auto) (0-4) % Baso % (Auto) (0-2) % Lymph # (Auto) (1.2-4.9) X10*3/uL [place] # (Auto) (0.1-1.2) X10*3/uL Eos # (Auto) (0.0-0.4) X10*3/uL Baso # (Auto) (0.0-0.2) X10*3/uL Abs Immat Gran (auto) (0.00-0.03) X10*3/uL Absolute Neuts (auto) (2.0-8.3) X10*3/uL Absolute Nucleated RBC (0.0-0.012) X10*3/uL Nucleated RBC % (auto) (0.0-0.2) /100WBC Sodium (135-145) mmol/L Potassium (3.3-5.1) mmol/l Chloride (96-108) mmol/L Carbon Dioxide (22-29) mmol/L Anion Gap (12-20) BUN (9-16) mg/dL Creatinine (0.5-1.4) mg/dL Estim Creat Clear Calc Estimated GFR Random Glucose (60-115) mg/dL Lactic Acid (0.5-2.0) mmol/L Calcium (8.4-10.2) mg/dL Coronavirus (PCR) NEGATIVE (Negative) Discharge Plan Discharge Prescriptions: No Action ferrous sulfate 325 mg (65 mg iron) Tablet 325 mg PO DAILY RF: 0 metformin 500 mg Tablet 1,000 mg PO BID RF: 0 gabapentin 600 mg Tablet 600 mg PO TID RF: 0 insulin lispro [Admelog U-100 Insulin lispro] 100 unit/mL Solution 1 sliding scale dose SUBCUT USEASDIRECTD RF: 0 methadone 5 mg/5 mL Solution 30 mg PO DAILY RF: 0 Lantus U-100 Insulin 100 unit/mL Solution 20 unit subcut BID Qty: 10 RF: 0 cefuroxime axetil 500 mg Tablet 500 mg PO Q12H Qty: 56 RF: 0
[2020-05-17] MEDS: vancomycin HCL 1,000 MG in 0.9 % Sodium Chloride 250 ML 270 MG IV (02:30)
--- NOTE | 2020-05-17 02:30 | PC.NURSE ---
PT MEDICATED PER EMAR.
--- NOTE | 2020-05-17 03:00 | PC.NURSE ---
PT SLEEPING, WAKES TO VERBAL STIMULI, RESPIRATIONS EASY N/L. WILL CONTINUE TO MONITOR PT.
[2020-05-17 03:15] LABS: MANUAL DIFF FLAG NO
[2020-05-17 03:17] LABS: Basophils Percent Auto 0.6 % (0-2); Eosinophils Absolute Auto 0.2 X10*3/uL (0.0-0.4); Eosinophils Percent Auto 3.7 % (0-4); Hematocrit 28.5 % (42-52); Hemoglobin 9.3 g/dl (14.0-18.0); Imm Gran Abs Auto 0.01 X10*3/uL (0.00-0.03); Imm Gran Pct Auto 0.2 % (0.0-0.4); Lymphocytes Absolute Auto 1.6 X10*3/uL (1.2-4.9); Lymphocytes Percent Auto 32.1 % (20-40); Mean Corpuscular HGB Conc 32.6 g/dl (31.0-36.0); Mean Corpuscular Hemoglobin 26.3 pg (27.0-33.0); Mean Corpuscular Volume 80.7 fL (80-98); Monocytes Absolute Auto 0.3 X10*3/uL (0.1-1.2); Monocytes Percent Auto 6.8 % (2-11); Neutrophils Absolute Auto 2.7 X10*3/uL (2.0-8.3); Neutrophils Percent Auto 56.6 % (45-73); Platelet Count 255 X10*3/uL (160-400); Red Blood Count 3.53 X10*6/uL (4.60-5.80); White Blood Count 4.8 X10*3/uL (4.8-10.8)
[2020-05-17 03:34] LABS: Lactic Acid 1.6 mmol/L (0.5-2.0)
[2020-05-17 03:41] LABS: Anion Gap 13 (12-20); Blood Urea Nitrogen 12 mg/dL (9-16); Calcium 8.2 mg/dL (8.4-10.2); Carbon Dioxide 31 mmol/L (22-29); Chloride 96 mmol/L (96-108); Creatinine Clr Calc Pharmacy 100.6; Estimated Glomerular Filt Rate > 60; Glucose Random 432 mg/dL (60-115); Potassium 4.6 mmol/l (3.3-5.1); Sodium 135 mmol/L (135-145)
[2020-05-17 04:30] LABS: SARS COV2 PCR INHOUSE NEGATIVE (Negative)
[2020-05-17] MEDS: Insulin Regular, Human 100 UNIT/ML 3 ML VIAL 10 UNIT SUBCUT (04:30)
--- NOTE | 2020-05-17 06:10 | PC.NURSE ---
PT WAKES TO VERBAL STIMULI, RESPIRATIONS EASY, N/L. SKIN W/D. VS OBTAINED WNL. MED REC DONE. PT AWAITING FOR ROOM ASSIGNMENT. AWAITING FOR FURTHER ORDERS.
--- NOTE | 2020-05-17 06:34 | PC.NURSE ---
MED REC DONE. DRESSING APPLIED TO RIGHT FOOT. PT UP TO RESTROOM WITH STEADY GAIT. PT DENIES ANY COMPLAINTS AT THIS TIME. PT AWAITING FOR HOSPITALIST FOR EVAL.
--- NOTE | 2020-05-17 06:37 | PC.NURSE ---
PT TO ROOM WITH C/O WOUND RE-OPENING, +DRAINAGE. PT ARRIVES ALERT, RESPIRATIONS EASY, N/L. SKIN W/D. PT DENIES ANY COMPLAINTS AT THIS TIME.
[2020-05-17 07:00] LABS: Glucose, Whole Blood 352 mg/dL (60-115)
[2020-05-17] MEDS: cefTRIAXone sodium 1 GM in 0.9 % Sodium Chloride 50 ML IV ×2 (07:30→09:42)
--- NOTE | 2020-05-17 07:37 | P.HPHOSP_ITS ---
History of Present Illness Date of Service: 05/17/20 Chief Complaint: Needs outside contractor sales IV antibiotics this is a 34-year-old male with a past medical history of diabetes with multiple complications including diabetic foot infections and resultant amputations who was admitted to [facility] from 05/06/2020 until 05/12/2020 for treatment of diabetic foot infection/osteomyelitis of the right lower extremity. Patient with a known TMA amputation of the right foot and during that last admission he underwent revision with bone biopsy which showed both MRSA and group B strep and blood cx which showed group b strep in 1/2 bottles. The plan was for 6 weeks of IV antibiotics at SNF, however due to social issues ( patient reported that he was being evicted from his home) he decided to leave against medical advice. He now returns to the hospital for further treatment. He is aware that he will again require 6 weeks of antibiotics and that being the weekend he will be here at least until Tuesday or Tuesday before he is transferred to SNF. He reports that since his AMA, he has changed his dressing and has followed up at the wound care clinic. He denies any fevers or chills. Denies any sob or cough. Denies any close contacts with any COVID19+ individual. In the ED, he was given a dose of vancomcyin + rocehpin, swabbed for COVID (which is negative) and admission was requested. Review of Systems Review of Systems: General - no fevers or chills HEENT - no MEYERS, no vision changes, no sore throat Cardiovascular - no chest pain Respiratory - no shortness of breath or cough Abdominal- no abdominal pain, nausea, vomiting, diarrhea Ext - foot wound, no drainage Neuro - no weakness, no dizziness - denies dysuria [facility] Medical History (Updated 05/17/20 @ 07:48 by Lalo Jenkins MD) Anemia Diabetes History of substance use Osteomyelitis Family History Mother Breast cancer CVD (cardiovascular disease) Diabetes Cancer Father Diabetes CVD (cardiovascular disease) Surgical History (Updated 05/12/20 @ 11:12 by Earle Mendoza MD) History of appendectomy History of carpal tunnel surgery of left wrist History 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 Social History Household Members: Friend(s) Housing: Apartment Smoking Status: Former smoker Tobacco Type: Cigarette Second Hand Smoke Exposure: No Advance Directives: No Advance Directives Information Provided: No service: No Current occupational status: disabled Meds Allergies Allergy/AdvReac Type Severity Reaction Status Date / Time No Known Allergies Allergy Verified 05/17/20 01:17 [No Known Allergies*] Home Medications Medication Instructions Recorded Confirmed Type ferrous sulfate 325 mg PO DAILY 05/06/20 05/17/20 History gabapentin 600 mg PO QID 05/06/20 05/17/20 History insulin lispro [Admelog U-100 1 sliding scale dose SUBCUT 05/06/20 05/17/20 History Insulin lispro] USEASDIRECTD metformin 1,000 mg PO BID 05/06/20 05/17/20 History insulin glargine [Lantus U-100 20 unit SUBCUT BID 05/17/20 05/17/20 History Insulin] Physical Exam Vital Signs and Narrative: Vital Signs: Last Vital Signs Temp 98.2 F 05/17/20 07:33 Pulse 78 05/17/20 07:33 Resp 16 05/17/20 07:33 BP 107/62 05/17/20 07:33 Pulse Ox 98 05/17/20 07:33 Body Mass Index 25.1 General - no acute distress, appears comfortable HEENT - EOMI, PEERL Cardiovascular - regular rate and rhythm, S1-S2 Lungs - normal respiratory effort, clear to auscultation bilaterally, no wheezing Abdomen - soft, nontender, no rebound regarding Extremities - RLE: TMA amputation, michelle in place -- wound clean without any drainage Neuro - awake and alert, no focal deficits Skin - RLE wound as above - deferred Results Labs CBC and Chem 7: 05/17/20 03:08 05/17/20 03:08 Labs: Laboratory Results - last 24 hr 05/17/20 05/17/20 05/17/20 03:08 03:08 03:08 MCV 80.7 MCH 26.3 L MCHC 32.6 RDW 15.0 Plt Count 255 MPV 10.0 Immature Gran % (Auto) 0.2 Neut % (Auto) 56.6 Lymph % (Auto) 32.1 [place] % (Auto) 6.8 Eos % (Auto) 3.7 Baso % (Auto) 0.6 Lymph # (Auto) 1.6 [place] # (Auto) 0.3 Eos # (Auto) 0.2 Baso # (Auto) 0.0 Abs Immat Gran (auto) 0.01 Absolute Neuts (auto) 2.7 Absolute Nucleated RBC 0.000 Nucleated RBC % (auto) 0.0 Anion Gap 13 Estim Creat Clear Calc 100.6 Estimated GFR > 60 POC Glucose Random Glucose 432 H* Lactic Acid 1.6 Calcium 8.2 L Coronavirus (PCR) 05/17/20 05/17/20 03:08 06:55 MCV MCH MCHC RDW Plt Count MPV Immature Gran % (Auto) Neut % (Auto) Lymph % (Auto) [place] % (Auto) Eos % (Auto) Baso % (Auto) Lymph # (Auto) [place] # (Auto) Eos # (Auto) Baso # (Auto) Abs Immat Gran (auto) Absolute Neuts (auto) Absolute Nucleated RBC Nucleated RBC % (auto) Anion Gap Estim Creat Clear Calc Estimated GFR POC Glucose 352 H* Random Glucose Lactic Acid Calcium Coronavirus (PCR) NEGATIVE Assessment and Plan (1) Osteomyelitis of ankle or foot, right, acute: Status: Acute (2) S/P transmetatarsal amputation of foot: Status: Acute This is a 35 yo M with a PMH of DM with multiple complications including repeated diabetic foot infections and resultant amputaitons who was admitted for [facility] at the end of April 2020 and was diagnosed+treated for Group B strep bacteremia + osteomyelitis of the TMA site on the R. The plan was for him to go to SNF for IV antibiotics x 6 weeks, but due to social circumstances he decided to sign out against medical advice. He now returns to complete his treatment 1. Group b strep bacteremia + osteomyelitis No evidnece of sepsis at this time rocephin 2gm q24 hours for now received 1 dose vancomyin in the ED (wound cx grew MRSA then as well) -- hold off further vancomcyin for now and consult ID. Will have vascular or gen surg see him Tuesday. His wound does not look like it needs any surgical intervention at this time. follow blood cultures eventual PICC and treatment at SNF 2. Uncontrolled DM lantus + sliding scale + metformin diabetic diet 3. Diabetic neuropathy gabapentin Full Code DVT pptx, Lovenox
[2020-05-17] MEDS: Insulin Glargine,Hum.rec.anlog 100 UNIT/ML 10 ML VIAL 20 UNIT SUBCUT ×2 (09:41→21:42)
[2020-05-17] MEDS: 0.9 % Sodium Chloride Flush 3 ML SYRINGE IVFLUSH ×3 (09:42→23:14)
[2020-05-17] MEDS: Gabapentin 600 MG TABLET PO ×4 (09:42→21:41)
[2020-05-17] MEDS: metFORMIN HCl 1,000 MG TABLET 1000 MG PO ×2 (09:42→21:41)
[2020-05-17] MEDS: Enoxaparin Sodium 40 MG/0.4 ML SYRINGE SUBCUT (09:42)
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
[2020-05-17 11:37] LABS: Glucose, Whole Blood 201 mg/dL (60-115)
[2020-05-17] MEDS: Insulin Lispro 100 UNIT/ML 3 ML VIAL SUBCUT ×2 (11:59→21:41)
--- NOTE | 2020-05-17 13:29 | MHC.CM.PN ---
Referral sent to [facility] to determine if they are still willing/able to offer this pt a bed. CM also informed them he would likely be ready to DC early this week once PICC is placed. Currently awaiting response
--- NOTE | 2020-05-17 14:34 | MHC.CM.PN ---
[facility] offering a bed pending auth and bed availability at time of DC.
--- NOTE | 2020-05-17 15:22 | W.PM.IDCN ---
History of Present Illness Data of Consult Service Date: 05/17/20 Requesting physician: Lalo Jenkins Primary Care Provider: Jose Manuel Alicea MD HPI Reason for consult: acute on chronic osteomyelitis He represents for right foot pain He left AMA with po Ceftin for Group B strep bacteremia He had right transmetatarsal amputation foot revision on 05/09 Dr Mendoza He was hospitalized 05/06-05/12 He has Group B strep and now growing MRSA from foot also He has no fever or chills Review of Systems Musculoskeletal: Comments: discomfort bilateral feet PMFSH Past Medical History Medical History Anemia Diabetes History of substance use Osteomyelitis Family History Family History Mother Breast cancer CVD (cardiovascular disease) Diabetes Cancer Father Diabetes CVD (cardiovascular disease) Surgical History Surgical History History of appendectomy History of carpal tunnel surgery of left wrist History 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 Social History Social History Household Members: Friend(s) Housing: Unknown / Unable to assess Housing Other:: patient states his belongings are in his truck Do you presently have visiting nurse or other home services: No Smoking Status: Never smoker Tobacco Type: Cigarette Second Hand Smoke Exposure: No Use of substances other than those prescribed or required for medical reasons: Refusing to respond Currently Displaying Signs/Symptoms of Drug Intoxication Withdrawal: No Any prior treatment program specific to substance use: Yes Have you been hit, kicked, punched, or otherwise hurt by someone within the past year? If so, by whom?: No Do you feel safe in your current relationship?: Yes Is there a partner from a previous relationship who is making you feel unsafe now?: No Are you made to feel afraid or neglected: No Advance Directives: No Advance Directives Information Provided: No Advance Directives on File: No Do you have thoughts of harming others: None Do you have a plan to hurt others: No Plan Recently lost weight without trying: No service: No Current occupational status: unemployed Meds Allergies Allergy/AdvReac Type Severity Reaction Status Date / Time No Known Allergies Allergy Verified 05/17/20 01:17 [No Known Allergies*] Home Medications Medication Instructions Recorded Confirmed Type ferrous sulfate 325 mg PO DAILY 05/06/20 05/17/20 History gabapentin 600 mg PO QID 05/06/20 05/17/20 History insulin lispro [Admelog U-100 1 sliding scale dose SUBCUT 05/06/20 05/17/20 History Insulin lispro] USEASDIRECTD metformin 1,000 mg PO BID 05/06/20 05/17/20 History Lantus U-100 Insulin 20 unit SUBCUT BID 05/17/20 05/17/20 History methadone 30 mg PO DAILY 05/19/20 05/19/20 History Physical Exam Vital Signs: Vital Signs: Last Vital Signs Temp 97.1 F 05/17/20 11:16 Pulse 66 05/17/20 11:16 Resp 18 05/17/20 11:16 BP 115/58 L 05/17/20 11:16 Pulse Ox 66 L 05/17/20 11:16 Body Mass Index 25.1 Const: General: healthy appearing HENMT: Head: Yes normal to inspection Ears: hearing grossly normal bilaterally Mouth: Normal oral and palatal mucosa present Resp: Effort & Inspection: normal respiratory effort GI: Inspection: Yes normal to inspection : General: Yes no CVA tenderness Back/Spine/Pelvis: Back: no CVA tenderness Skin: General skin exam: no rashes or lesions noted Neuro: Other: neuropathy feet bilateral michelle TMA right, left plantar two one cm areas open Assessment and Plan (1) Osteomyelitis: Problem details: He has Group B strep and now MRSA in wound/bone He has had Group B strep bacteremia Status: Acute 6 weeks IV Vancomycin cover both and then possible po Doxycycline Foot salvage still remains concern (2) S/P transmetatarsal amputation of foot: Status: Acute Results Labs CBC & Chem 7: 05/20/20 08:42 05/20/20 08:42 Labs: Short CBC 05/17/20 Range/Units 03:08 WBC 4.8 (4.8-10.8) X10*3/uL Hgb 9.3 L (14.0-18.0) g/dl Hct 28.5 L (42-52) % Plt Count 255 (160-400) X10*3/uL BMP 05/17/20 03:08 Sodium 135 Potassium 4.6 Chloride 96 Carbon Dioxide 31 H BUN 12 Creatinine 1.07 Calcium 8.2 L
[2020-05-17 16:40] LABS: Glucose, Whole Blood 102 mg/dL (60-115)
[2020-05-17 20:50] LABS: Glucose, Whole Blood 278 mg/dL (60-115)
[2020-05-17] MEDS: Acetaminophen 325 MG TABLET 650 MG PO (21:40)
[2020-05-17] MEDS: oxyCODONE HCl Immed Release 5 MG TABLET PO (21:41)
--- NOTE | 2020-05-18 01:45 | MHC.PIE ---
late entry p; pt c/o pain 01/17 to [facility]. note; no prn pain med other then tylenol? i; dr echeverria notified; new order oxy 5 mg po q4 prn e; pt resting comfortably in bed, will cont to monitor
[2020-05-18 07:20] LABS: Glucose, Whole Blood 316 mg/dL (60-115)
[2020-05-18 07:38] LABS: MANUAL DIFF FLAG NO
[2020-05-18 07:45] VITALS: BP 122/68; PULSE 69; RESP 15; TEMP 36.4; O2SAT 96
[2020-05-18 07:51] LABS: Basophils Percent Auto 0.6 % (0-2); Eosinophils Absolute Auto 0.2 X10*3/uL (0.0-0.4); Eosinophils Percent Auto 3.4 % (0-4); Hematocrit 29.7 % (42-52); Hemoglobin 9.4 g/dl (14.0-18.0); Imm Gran Abs Auto 0.02 X10*3/uL (0.00-0.03); Imm Gran Pct Auto 0.4 % (0.0-0.4); Lymphocytes Absolute Auto 1.7 X10*3/uL (1.2-4.9); Lymphocytes Percent Auto 35.7 % (20-40); Mean Corpuscular HGB Conc 31.6 g/dl (31.0-36.0); Mean Corpuscular Hemoglobin 25.8 pg (27.0-33.0); Mean Corpuscular Volume 81.6 fL (80-98); Mean Platelet Volume 9.8 fL (9.4-12.4); Monocytes Absolute Auto 0.4 X10*3/uL (0.1-1.2); Monocytes Percent Auto 7.7 % (2-11); Neutrophils Absolute Auto 2.5 X10*3/uL (2.0-8.3); Neutrophils Percent Auto 52.2 % (45-73); Platelet Count 241 X10*3/uL (160-400); Red Blood Count 3.64 X10*6/uL (4.60-5.80); White Blood Count 4.7 X10*3/uL (4.8-10.8)
[2020-05-18 08:12] LABS: Anion Gap 13 (12-20); Blood Urea Nitrogen 13 mg/dL (9-16); Calcium 8.4 mg/dL (8.4-10.2); Carbon Dioxide 32 mmol/L (22-29); Chloride 97 mmol/L (96-108); Creatinine Clr Calc Pharmacy 102.5; Estimated Glomerular Filt Rate > 60; Glucose Random 310 mg/dL (60-115); Potassium 5.6 mmol/l (3.3-5.1); Sodium 136 mmol/L (135-145)
[2020-05-18] MEDS: Insulin Lispro 100 UNIT/ML 3 ML VIAL SUBCUT ×6 (09:20→21:08)
[2020-05-18] MEDS: Insulin Glargine,Hum.rec.anlog 100 UNIT/ML 10 ML VIAL 20 UNIT SUBCUT ×2 (09:21→21:07)
[2020-05-18] MEDS: 0.9 % Sodium Chloride Flush 3 ML SYRINGE IVFLUSH ×3 (09:22→22:20)
[2020-05-18] MEDS: Gabapentin 600 MG TABLET PO ×4 (09:22→21:07)
[2020-05-18] MEDS: metFORMIN HCl 1,000 MG TABLET 1000 MG PO ×2 (09:22→21:07)
[2020-05-18] MEDS: vancomycin HCL 1,000 MG in 0.9 % Sodium Chloride 250 ML 180 MG IV ×2 (09:22→17:47)
[2020-05-18] MEDS: Enoxaparin Sodium 40 MG/0.4 ML SYRINGE SUBCUT (09:34)
--- NOTE | 2020-05-18 11:16 | HO.PM.IMPN ---
Subjective Subjective Date of Service: 05/18/20 Interval History: seen and examined no new issues ROS General - no fevers or chills Cardiovascular - no chest pain Respiratory - no shortness of breath or cough Abdominal- no abdominal pain, nausea, vomiting, diarrhea Ext - foot pain controlled Physical Exam Vital Signs: Vital Signs: Last Vital Signs Temp 97.6 F 05/18/20 07:45 Pulse 69 05/18/20 07:45 Resp 15 05/18/20 07:45 BP 122/68 05/18/20 07:45 Pulse Ox 96 05/18/20 07:45 Body Mass Index 25.1 General - no acute distress, appears comfortable HEENT - EOMI, PEERL Cardiovascular - regular rate and rhythm, S1-S2 Lungs - normal respiratory effort, clear to auscultation bilaterally, no wheezing Abdomen - soft, nontender, no rebound regarding Extremities - RLE: TMA amputation, michelle in place -- wound clean without any drainage Neuro - awake and alert, no focal deficits Skin - RLE wound as above - deferred Objective Data Current Medications Generic Name Dose Route Start Last Admin Trade Name Raysa PRN Reason Stop Dose Admin Acetaminophen 650 mg 05/17/20 09:02 05/17/20 21:40 Acetaminophen 325 Mg Tablet PO 650 mg Q6H PRN Administration Pain, Mild (Pain Scale 1-3) Docusate Sodium 100 mg 05/17/20 09:02 Docusate Sodium 100 Mg Capsule PO DAILY PRN Constipation Enoxaparin Sodium 40 mg 05/17/20 10:00 05/18/20 09:34 Enoxaparin Sodium 40 Mg/0.4 Ml Syringe SUBCUT 40 mg Q24H DAYNA Administration Gabapentin 600 mg 05/17/20 09:02 05/18/20 09:22 Gabapentin 600 Mg Tablet PO 600 mg QID DAYNA Administration Vancomycin HCl 1,000 mg/ 270 mls @ 180 mls/hr 05/18/20 09:00 05/18/20 09:22 Sodium Chloride IV 180 mls/hr Q8H DAYNA Administration Insulin Glargine 20 unit 05/17/20 09:02 05/18/20 09:21 Insulin Glargine,Hum.Rec.Anlog 100 Unit/Ml 10 Ml Vial SUBCUT 20 unit BID DAYNA Administration Insulin Human Lispro 0 unit 05/17/20 11:30 05/18/20 09:20 Insulin Lispro 100 Unit/Ml 3 Ml Vial SUBCUT 8 unit QIDACHS DAYNA Administration Protocol Metformin HCl 1,000 mg 05/17/20 09:02 05/18/20 09:22 Metformin Hcl 1,000 Mg Tablet PO 1,000 mg BID DAYNA Administration Ondansetron HCl 4 mg 05/17/20 09:02 Ondansetron Hcl 4 Mg/2 Ml Vial IVPUSH Q8H PRN Nausea and Vomiting Oxycodone HCl 5 mg 05/17/20 19:35 05/17/20 21:41 Oxycodone Hcl Immed Release 5 Mg Tablet PO 5 mg Q4H PRN Administration Pain, Severe (Pain Scale 7-10) Pharmacy Consult 1 each 05/17/20 06:56 Consult Rx Perform Med Rec MISCELLANE ONCE PRN Consult order Sodium Chloride 3 ml 05/17/20 09:02 05/18/20 09:22 0.9 % Sodium Chloride Flush 3 Ml Syringe IVFLUSH 3 ml QSHIFT DAYNA Administration Labs CBC & Chem 7: 05/18/20 07:23 05/18/20 07:23 Microbiology Microbiology Results: Microbiology 05/17/20 03:08 Blood - Venous Blood Culture - Preliminary No growth after 24 hours. 05/17/20 03:08 Blood - Venous Blood Culture - Preliminary No growth after 24 hours. Assessment and Plan (1) Osteomyelitis of ankle or foot, right, acute: Status: Acute (2) S/P transmetatarsal amputation of foot: Status: Acute Assessment and Plan: This is a 35 yo M with a PMH of DM with multiple complications including repeated diabetic foot infections and resultant amputaitons who was admitted for [facility] [facility] at the end of April 2020 and was diagnosed+treated for Group B strep bacteremia + osteomyelitis of the TMA site on the R. The plan was for him to go to SNF for IV antibiotics x 6 weeks, but due to social circumstances he decided to sign out against medical advice. He now returns to complete his treatment 1. Group b strep bacteremia + osteomyelitis (growing Group B strep + MRSA) ID input appreciate -- switch rocephin to vancomcyin for 6 weeks follow vancomcyin trough and renal function closely vanco dosing per pharmacy protocol f/u blood cx -- negative to date picc line once blood cx negative and patient has a place to go 2. Uncontrolled DM lantus + humalog sliding scale + scheulded 5 units metformin diabetic diet 3. Diabetic neuropathy gabapentin Full Code DVT pptx, Lovenox
[2020-05-18 12:02] LABS: Glucose, Whole Blood 330 mg/dL (60-115)
[2020-05-18] MEDS: Acetaminophen 325 MG TABLET 650 MG PO (15:28)
[2020-05-18] MEDS: oxyCODONE HCl Immed Release 5 MG TABLET PO (15:28)
[2020-05-18 15:54] VITALS: BP 116/72; PULSE 66; RESP 18; TEMP 36.2; O2SAT 99
[2020-05-18 16:42] LABS: Glucose, Whole Blood 194 mg/dL (60-115)
[2020-05-18 20:54] LABS: Glucose, Whole Blood 249 mg/dL (60-115)
[2020-05-19] VITALS: BP 136/74; PULSE 74; RESP 16; TEMP 36.1; O2SAT 99
[2020-05-19] MEDS: vancomycin HCL 1,000 MG in 0.9 % Sodium Chloride 250 ML 180 MG IV ×3 (00:45→17:31)
[2020-05-19 08:00] VITALS: BP 129/79; PULSE 77; RESP 18; TEMP 36.7; O2SAT 96
[2020-05-19 08:21] LABS: MANUAL DIFF FLAG NO
[2020-05-19 08:25] LABS: Basophils Percent Auto 0.3 % (0-2); Eosinophils Absolute Auto 0.1 X10*3/uL (0.0-0.4); Eosinophils Percent Auto 2.1 % (0-4); Hematocrit 34.5 % (42-52); Hemoglobin 11.1 g/dl (14.0-18.0); Lymphocytes Absolute Auto 1.1 X10*3/uL (1.2-4.9); Lymphocytes Percent Auto 16.4 % (20-40); Mean Corpuscular HGB Conc 32.2 g/dl (31.0-36.0); Mean Corpuscular Volume 80.8 fL (80-98); Mean Platelet Volume 9.8 fL (9.4-12.4); Monocytes Absolute Auto 0.3 X10*3/uL (0.1-1.2); Monocytes Percent Auto 5.2 % (2-11); Platelet Count 257 X10*3/uL (160-400); Red Blood Count 4.27 X10*6/uL (4.60-5.80); Red Cell Distribution Width 14.7 % (11.0-16.0); White Blood Count 6.5 X10*3/uL (4.8-10.8)
[2020-05-19 08:43] LABS: Glucose, Whole Blood 239 mg/dL (60-115)
[2020-05-19] MEDS: Insulin Glargine,Hum.rec.anlog 100 UNIT/ML 10 ML VIAL 20 UNIT SUBCUT ×2 (08:44→21:38)
[2020-05-19] MEDS: Insulin Lispro 100 UNIT/ML 3 ML VIAL SUBCUT ×8 (08:45→21:39)
[2020-05-19] MEDS: Gabapentin 600 MG TABLET PO ×4 (08:46→21:38)
[2020-05-19] MEDS: metFORMIN HCl 1,000 MG TABLET 1000 MG PO ×2 (08:46→21:38)
[2020-05-19 08:55] LABS: Vancomycin Trough 15.7 mcg/mL (10.0-20.0)
[2020-05-19 09:03] LABS: Anion Gap 14 (12-20); Blood Urea Nitrogen 14 mg/dL (9-16); Carbon Dioxide 30 mmol/L (22-29); Chloride 98 mmol/L (96-108); Creatinine Clr Calc Pharmacy 119.6; Estimated Glomerular Filt Rate > 60; Glucose Random 202 mg/dL (60-115); Potassium 5.2 mmol/l (3.3-5.1); Sodium 137 mmol/L (135-145)
[2020-05-19] MEDS: Enoxaparin Sodium 40 MG/0.4 ML SYRINGE SUBCUT (10:01)
[2020-05-19] MEDS: 0.9 % Sodium Chloride Flush 3 ML SYRINGE IVFLUSH ×3 (10:01→21:44)
[2020-05-19] MEDS: oxyCODONE HCl Immed Release 5 MG TABLET PO ×2 (11:00→21:43)
[2020-05-19 11:44] LABS: Glucose, Whole Blood 198 mg/dL (60-115)
--- NOTE | 2020-05-19 11:52 | PM.EVENT ---
Event Note Event Note: Patient is status post transmetatarsal amputation. Appears to be doing relatively well. Full consult dictated.
--- NOTE | 2020-05-19 12:37 | CONS_ITS ---
DATE OF SERVICE: 05/17/2020 HISTORY OF PRESENT ILLNESS: A 35-year-old gentleman with a complex past medical history, who has had a nonhealing diabetic foot ulcer. He is status post transmetatarsal amputation and on 05/09/2020, I performed a revision of the transmetatarsal amputation. He left the hospital AMA. He returned and was started on antibiotics of vancomycin and Rocephin. He now presents for vascular followup. PAST MEDICAL HISTORY: Significant for diabetes, anemia, and osteomyelitis. PAST SURGICAL HISTORY: Includes the above-mentioned transmetatarsal amputation, prior toe amputations, carpal tunnel release, and appendectomy. MEDICATIONS: Medication list was reviewed per nursing MAR. ALLERGIES: THE PATIENT HAS NO KNOWN DRUG ALLERGIES. SOCIAL HISTORY: Nonsmoker, nondrinker, but does have a history of substance abuse. FAMILY HISTORY: No history of advanced coronary artery disease or peripheral vascular disease. REVIEW OF SYSTEMS: 13-point review was performed. At the current time, denies any headache, dizziness, nausea, vomiting, diarrhea, or shortness of breath. Rest of 13-point review was essentially negative. PHYSICAL EXAMINATION: GENERAL: Afebrile. VITAL SIGNS: Stable. HEAD AND NECK: Demonstrates no bruits. CHEST: Moving air bilaterally. CARDIAC: Positive S1 and S2. ABDOMEN: Soft. EXTREMITIES: Upper extremities have good radial and ulnar pulses. Lower extremities warm with good capillary refill. NEUROLOGICAL: II through XII grossly intact. PSYCH: Mood and affect appear within normal limits. SKIN: Right transmetatarsal site appears well healing. There is a small punctate opening on the medial aspect of the foot. Shirley and sutures appeared intact. IMPRESSION: Status post transmetatarsal amputation. The patient will require long-term IV antibiotics. At the current time, the incision line looks stable from my perspective. We will follow on an as-needed basis. Thank you for allowing us to assist in his care. MD NATALIE Gandara/COLETTE / [phone]
--- NOTE | 2020-05-19 13:55 | HO.PM.IMPN ---
Subjective Subjective Interval History: seen and examined no new issues reported wants his methadone ROS General - no fevers or chills Cardiovascular - no chest pain Respiratory - no shortness of breath or cough Abdominal- no abdominal pain, nausea, vomiting, diarrhea Ext - foot pain controlled Physical Exam Vital Signs: Vital Signs: Last Vital Signs Temp 98.1 F 05/19/20 08:00 Pulse 77 05/19/20 08:00 Resp 18 05/19/20 08:00 BP 129/79 05/19/20 08:00 Pulse Ox 96 05/19/20 08:00 Body Mass Index 25.1 General - no acute distress, appears comfortable HEENT - EOMI, PEERL Cardiovascular - regular rate and rhythm, S1-S2 Lungs - normal respiratory effort, clear to auscultation bilaterally, no wheezing Abdomen - soft, nontender, no rebound regarding Extremities - RLE: TMA amputation, michelle in place -- wound clean without any drainage Neuro - awake and alert, no focal deficits Skin - RLE wound as above - deferred Objective Data Current Medications Generic Name Dose Route Start Last Admin Trade Name Raysa PRN Reason Stop Dose Admin Acetaminophen 650 mg 05/17/20 09:02 05/18/20 15:28 Acetaminophen 325 Mg Tablet PO 650 mg Q6H PRN Administration Pain, Mild (Pain Scale 1-3) Docusate Sodium 100 mg 05/17/20 09:02 Docusate Sodium 100 Mg Capsule PO DAILY PRN Constipation Enoxaparin Sodium 40 mg 05/17/20 10:00 05/19/20 10:01 Enoxaparin Sodium 40 Mg/0.4 Ml Syringe SUBCUT 40 mg Q24H DAYNA Administration Gabapentin 600 mg 05/17/20 09:02 05/19/20 12:54 Gabapentin 600 Mg Tablet PO 600 mg QID DAYNA Administration Vancomycin HCl 1,000 mg/ 270 mls @ 180 mls/hr 05/18/20 09:00 05/19/20 11:20 Sodium Chloride IV Infused Q8H DAYNA Infusion Insulin Glargine 20 unit 05/17/20 09:02 05/19/20 08:44 Insulin Glargine,Hum.Rec.Anlog 100 Unit/Ml 10 Ml Vial SUBCUT 20 unit BID DAYNA Administration Insulin Human Lispro 0 unit 05/17/20 11:30 05/19/20 12:00 Insulin Lispro 100 Unit/Ml 3 Ml Vial SUBCUT 2 unit QIDACHS [facility] Administration Protocol Insulin Human Lispro 5 unit 05/18/20 16:30 05/19/20 12:00 Insulin Lispro 100 Unit/Ml 3 Ml Vial SUBCUT 5 unit QIDACHS [facility] Administration Metformin HCl 1,000 mg 05/17/20 09:02 05/19/20 08:46 Metformin Hcl 1,000 Mg Tablet PO 1,000 mg BID DAYNA Administration Ondansetron HCl 4 mg 05/17/20 09:02 Ondansetron Hcl 4 Mg/2 Ml Vial IVPUSH Q8H PRN Nausea and Vomiting Oxycodone HCl 5 mg 05/17/20 19:35 05/19/20 11:00 Oxycodone Hcl Immed Release 5 Mg Tablet PO 5 mg Q4H PRN Administration Pain, Severe (Pain Scale 7-10) Pharmacy Consult 1 each 05/17/20 06:56 Consult Rx Perform Med Rec MISCELLANE ONCE PRN Consult order Sodium Chloride 3 ml 05/17/20 09:02 05/19/20 10:01 0.9 % Sodium Chloride Flush 3 Ml Syringe IVFLUSH 3 ml QSHIFT DAYNA Administration Labs CBC & Chem 7: 05/19/20 08:16 05/19/20 08:16 Microbiology Microbiology Results: Microbiology 05/17/20 03:08 Blood - Venous Blood Culture - Preliminary No growth after 48 hours. 05/17/20 03:08 Blood - Venous Blood Culture - Preliminary No growth after 48 hours. Assessment and Plan (1) Osteomyelitis of ankle or foot, right, acute: Status: Acute (2) S/P transmetatarsal amputation of foot: Status: Acute Assessment and Plan: This is a 35 yo M with a PMH of DM with multiple complications including repeated diabetic foot infections and resultant amputaitons who was admitted for [facility] at the end of April 2020 and was diagnosed+treated for Group B strep bacteremia + osteomyelitis of the TMA site on the R. The plan was for him to go to SNF for IV antibiotics x 6 weeks, but due to social circumstances he decided to sign out against medical advice. He now returns to complete his treatment 1. Group b strep bacteremia + osteomyelitis (growing Group B strep + MRSA) ID input appreciate -- switch rocephin to vancomcyin for 6 weeks vancomcyin 1g q8 hours, trough 15.7 blood cx negative at 48 hours PICC to be ordered once patient has been accepted at facility -- CM working on it Seen by vascular today 2. Uncontrolled DM lantus + humalog sliding scale + scheulded 5 units metformin diabetic diet 3. Diabetic neuropathy gabapentin 4. Chronic opiate dependence methadone once confirmed Full Code DVT pptx, Lovenox dispo: SNF for antibiotics once accepted
[2020-05-19 16:00] VITALS: BP 107/65; PULSE 85; RESP 16; TEMP 36.6; O2SAT 99
[2020-05-19 17:14] LABS: Glucose, Whole Blood 162 mg/dL (60-115)
[2020-05-19 21:35] LABS: Glucose, Whole Blood 292 mg/dL (60-115)
[2020-05-20] VITALS: BP 125/64; PULSE 76; RESP 20; TEMP 36.3; O2SAT 96
[2020-05-20] MEDS: vancomycin HCL 1,000 MG in 0.9 % Sodium Chloride 250 ML 180 MG IV ×3 (01:13→16:10)
[2020-05-20 07:52] VITALS: PULSE 75; RESP 16; TEMP 36.5; O2SAT 99
[2020-05-20] MEDS: metFORMIN HCl 1,000 MG TABLET 1000 MG PO (08:02)
[2020-05-20] MEDS: Gabapentin 600 MG TABLET PO ×3 (08:02→16:10)
[2020-05-20] MEDS: Insulin Lispro 100 UNIT/ML 3 ML VIAL SUBCUT ×2 (08:03)
[2020-05-20] MEDS: Insulin Glargine,Hum.rec.anlog 100 UNIT/ML 10 ML VIAL 20 UNIT SUBCUT (08:03)
[2020-05-20] MEDS: 0.9 % Sodium Chloride Flush 3 ML SYRINGE IVFLUSH (08:04)
[2020-05-20 08:11] LABS: Glucose, Whole Blood 248 mg/dL (60-115)
[2020-05-20 08:57] LABS: MANUAL DIFF FLAG NO
[2020-05-20 08:59] LABS: Basophils Percent Auto 0.6 % (0-2); Eosinophils Absolute Auto 0.2 X10*3/uL (0.0-0.4); Eosinophils Percent Auto 3.3 % (0-4); Hemoglobin 11.1 g/dl (14.0-18.0); Imm Gran Abs Auto 0.01 X10*3/uL (0.00-0.03); Imm Gran Pct Auto 0.2 % (0.0-0.4); Lymphocytes Absolute Auto 1.4 X10*3/uL (1.2-4.9); Lymphocytes Percent Auto 25.1 % (20-40); Mean Corpuscular HGB Conc 32.6 g/dl (31.0-36.0); Mean Corpuscular Hemoglobin 26.3 pg (27.0-33.0); Mean Corpuscular Volume 80.6 fL (80-98); Mean Platelet Volume 9.6 fL (9.4-12.4); Monocytes Absolute Auto 0.4 X10*3/uL (0.1-1.2); Monocytes Percent Auto 6.5 % (2-11); Neutrophils Absolute Auto 3.5 X10*3/uL (2.0-8.3); Neutrophils Percent Auto 64.3 % (45-73); Platelet Count 266 X10*3/uL (160-400); Red Blood Count 4.22 X10*6/uL (4.60-5.80); Red Cell Distribution Width 14.7 % (11.0-16.0); White Blood Count 5.4 X10*3/uL (4.8-10.8)
[2020-05-20 09:15] LABS: Anion Gap 12 (12-20); Blood Urea Nitrogen 13 mg/dL (9-16); Calcium 8.8 mg/dL (8.4-10.2); Carbon Dioxide 32 mmol/L (22-29); Chloride 99 mmol/L (96-108); Creatinine Clr Calc Pharmacy 113.3; Estimated Glomerular Filt Rate > 60; Glucose Random 207 mg/dL (60-115); Sodium 138 mmol/L (135-145)
[2020-05-20 09:21] LABS: Vancomycin Trough 18.3 mcg/mL (10.0-20.0)
--- NOTE | 2020-05-20 09:30 | P.PNIM_ITS ---
Subjective Subjective Date of Service: 05/20/20 Interval History: no complaints Cardiovascular Cardiovascular: Reports no additional cardiovascular complaints Respiratory Respiratory: Reports no additional respiratory complaints Physical Exam Vital Signs: Vital Signs: Last Vital Signs Temp 97.7 F 05/20/20 07:52 Pulse 75 05/20/20 07:52 Resp 16 05/20/20 07:52 BP 125/64 05/20/20 00:00 Pulse Ox 99 05/20/20 07:52 Body Mass Index 25.1 General - no acute distress, appears comfortable HEENT - EOMI, PEERL Cardiovascular - regular rate and rhythm, S1-S2 Lungs - normal respiratory effort, clear to auscultation bilaterally, no wheezing Abdomen - soft, nontender, no rebound regarding Extremities - RLE: TMA amputation, michelle in place -- wound clean without any drainage Neuro - awake and alert, no focal deficits Skin - RLE wound as above - deferred Objective Data Current Medications Generic Name Dose Route Start Last Admin Trade Name Freq PRN Reason Stop Dose Admin Acetaminophen 650 mg 05/17/20 09:02 05/18/20 15:28 Acetaminophen 325 Mg Tablet PO 650 mg Q6H PRN Administration Pain, Mild (Pain Scale 1-3) Docusate Sodium 100 mg 05/17/20 09:02 Docusate Sodium 100 Mg Capsule PO DAILY PRN Constipation Enoxaparin Sodium 40 mg 05/17/20 10:00 05/19/20 10:01 Enoxaparin Sodium 40 Mg/0.4 Ml Syringe SUBCUT 40 mg Q24H DAYNA Administration Gabapentin 600 mg 05/17/20 09:02 05/20/20 08:02 Gabapentin 600 Mg Tablet PO 600 mg QID DAYNA Administration Vancomycin HCl 1,000 mg/ 270 mls @ 180 mls/hr 05/18/20 09:00 05/20/20 03:05 Sodium Chloride IV Infused Q8H DAYNA Infusion Insulin Glargine 20 unit 05/17/20 09:02 05/20/20 08:03 Insulin Glargine,Hum.Rec.Anlog 100 Unit/Ml 10 Ml Vial SUBCUT 20 unit BID DAYNA Administration Insulin Human Lispro 0 unit 05/17/20 11:30 05/20/20 08:03 Insulin Lispro 100 Unit/Ml 3 Ml Vial SUBCUT 4 unit QIDACHS DAYNA Administration Protocol Insulin Human Lispro 5 unit 05/18/20 16:30 05/20/20 08:03 Insulin Lispro 100 Unit/Ml 3 Ml Vial SUBCUT 5 unit QIDACHS DAYNA Administration Metformin HCl 1,000 mg 05/17/20 09:02 05/20/20 08:02 Metformin Hcl 1,000 Mg Tablet PO 1,000 mg BID DAYNA Administration Methadone HCl 30 mg 05/19/20 15:00 05/20/20 08:09 Methadone Hcl 1 Mg/0.1 Ml Oral.Conc PO 30 mg DAILY DAYNA Administration Ondansetron HCl 4 mg 05/17/20 09:02 Ondansetron Hcl 4 Mg/2 Ml Vial IVPUSH Q8H PRN Nausea and Vomiting Oxycodone HCl 5 mg 05/17/20 19:35 05/19/20 21:43 Oxycodone Hcl Immed Release 5 Mg Tablet PO 5 mg Q4H PRN Administration Pain, Severe (Pain Scale 7-10) Pharmacy Consult 1 each 05/17/20 06:56 Consult Rx Perform Med Rec MISCELLANE ONCE PRN Consult order Sodium Chloride 3 ml 05/17/20 09:02 05/20/20 08:04 0.9 % Sodium Chloride Flush 3 Ml Syringe IVFLUSH 3 ml QSHIFT DAYNA Administration Labs CBC & Chem 7: 05/20/20 08:42 05/20/20 08:42 Microbiology Microbiology Results: Microbiology 05/17/20 03:08 Blood - Venous Blood Culture - Preliminary No growth after 48 hours. 05/17/20 03:08 Blood - Venous Blood Culture - Preliminary No growth after 48 hours. Assessment and Plan (1) Osteomyelitis of ankle or foot, right, acute: Status: Acute (2) S/P transmetatarsal amputation of foot: Status: Acute Assessment and Plan: This is a 35 yo M with a PMH of DM with multiple complications including repeated diabetic foot infections and resultant amputations who was admitted for [facility] at the end of April 2020 and was diagnosed+treated for Group B strep bacteremia + osteomyelitis of the TMA site on the R. The plan was for him to go to SNF for IV antibiotics x 6 weeks, but due to social circumstances he decided to sign out against medical advice. He then returned to complete his treatment 1. Group b strep bacteremia + osteomyelitis (growing Group B strep + MRSA) ID input appreciate -- switched rocephin to vancomcyin for 6 weeks vancomcyin 1g q8 hours, trough 15.7 blood cx negative at 48 hours PICC to be ordered once patient has been accepted at facility -- CM working on it 2. Uncontrolled DM lantus + humalog sliding scale + scheulded 5 units metformin diabetic diet 3. Diabetic neuropathy gabapentin 4. Chronic opiate dependence methadone Full Code DVT pptx, Lovenox dispo: SNF for antibiotics once accepted
[2020-05-20] MEDS: Enoxaparin Sodium 40 MG/0.4 ML SYRINGE SUBCUT (09:37)
[2020-05-20 11:59] VITALS: BP 121/68; PULSE 74; RESP 16; TEMP 36.4; O2SAT 99
[2020-05-20 12:21] LABS: Glucose, Whole Blood 115 mg/dL (60-115)
--- NOTE | 2020-05-20 12:45 | MHC.CM.PN ---
[facility] updated. Plan is for discharge today following picc placement and dose of vanco.
--- NOTE | 2020-05-20 14:06 | MHC.CM.PN ---
PATIENT METHADONE CLINIC IS: [facility] [phone] [facility]
--- NOTE | 2020-05-20 14:18 | P.PICC_ITS ---
PICC Line Insertion NPICC Diagnosis: [OSTEOMYELITIS] Indication: [SNF IV ANTIBIOTIC THERAPY] Pertinent Labs: [REVIEWED] Technique: Following informed consent including risks, benefits and alternatives and using sterile technique including cap and mask, sterile gown, glove and drape, the [RIGHT] arm was prepped and draped in the usual sterile fashion of full barrier technique with CHG. Following completion of [place] Protocol the skin and soft tissues were anesthetized with 1% Lidocaine plain. Using ultrasound guidance, [THE RIGHT BASILIC] vein access was obtained WITH ONE ATTEMPT BY THIS RN. Over an 0.018 wire through peel-away sheath, a [SINGLE LUMEN] PICC line was positioned. Catheter length is [41 CM] internal length, [ZERO] external length, for a total trimmed length of [41 CM]. The procedure was performed in [ROOM S272]. Tip verification was performed by Song Best with Sherlock 3CG. Tip located in SVC. Ultrasound was used to document vein patency and for needle entry. A formal ultrasound picture and cardiac rhythm strip was recorded. [employer] Accountant has released the line for use and it is currently dressed with a StatLock, Tegaderm, and CHG disc. Verification has been performed for blood return and line patency. Arm Circumference: [33 CM] Equipment: [BARD POWER PICC SOLO] Catheter Type: [4 INDIAN SINGLE LUMEN PICC] Lot #: [[id number]] CARAMEL CANDY MAKER HELPER TO RN: ANKIT MAXWELL,WIND DEVELOPMENT DIRECTOR ([id number])
--- NOTE | 2020-05-20 15:56 | P.DS_ITS ---
DS: Providers Provider Date of admission: 05/17/20 07:37 Primary care physician: Jose Manuel Alicea MD Consults: 05/17/20 09:02 Consult to Infectious Diseases Routine Consulting Provider: Jacqueline Lira Reason for consultation: osteomyelitis 05/19/20 08:00 Consult to Vascular Surgery Routine Consulting Provider: Earle Mendoza Reason for consultation: TMA, wound check / care DS: Diagnosis Discharge Diagnosis (1) Osteomyelitis of ankle or foot, right, acute: Status: Acute (2) S/P transmetatarsal amputation of foot: Status: Acute DS: Summary Hospital Course Hospital Course: 35 yo M with a PMH of DM with multiple complications including repeated diabetic foot infections and resultant amputaitons who was admitted for [facility] at the end of April 2020 and was diagnosed+treated for Group B strep bacteremia + osteomyelitis of the TMA site on the R. The plan was for him to go to SNF for IV antibiotics x 6 weeks, but due to social circumstances he decided to sign out against medical advice. He then returned to complete his treatment. he had picc placed, he was seen by ID who recommended 6 weeks of IV vancomycin followed by possible tara cavanaugh, he should have weekly cbc, bmp, vanc trough, he should follow up with ID and vascular. less than 30 days expected at SNF. Time Spent with Patient Time attestation: Total time spent providing and/or coordinating discharge services: Physical Exam Vital Signs: Vital Signs: Last Vital Signs Temp 97.6 F 05/20/20 11:59 Pulse 74 05/20/20 11:59 Resp 16 05/20/20 11:59 BP 121/68 05/20/20 11:59 Pulse Ox 99 05/20/20 11:59 Body Mass Index 25.1 General: AO X 3, no acute distress Resp: CTA bilateral CVS: S1,S2,RRR GI: soft, non tender, non distended Neuro: motor grossly intact Psych: appropriate affect DS: Data Data Completed and Pending Completed studies during hospitalization [Text1]: Procedures Detachment at Right Foot, Partial 1st Ray, Open Approach (05/06/20) Detachment at Right Foot, Partial 2nd Ray, Open Approach (05/06/20) Labs on day of discharge: 05/17/20 02:08 vancomycin HCL 1,000 mg 0.9 % Sodium Chloride [Ns] 250 ml IV ONCE 05/17/20 03:08 Basic Metabolic Panel Stat Complete Blood Count Auto Diff Stat Lactic Acid Stat SARS COV2 PCR INHOUSE Stat 05/17/20 03:51 Insulin Regular, Human [Humulin R] 10 unit SUBCUT ONCE ONE 05/17/20 06:25 cefTRIAXone sodium [Rocephin] 1 gm 0.9 % Sodium Chloride [Ns] 50 ml IV ONCE 05/17/20 06:55 Glucose, Whole Blood Routine 05/17/20 07:25 cefTRIAXone sodium [Rocephin] 1 gm .ROUTE .[facility] ONE 05/17/20 07:29 cefTRIAXone sodium [Rocephin] 1 gm 0.9 % Sodium Chloride [Ns] 50 ml IV ONCE 05/17/20 07:30 Transfer Order Routine 05/17/20 09:34 cefTRIAXone sodium [Rocephin] 1 gm .ROUTE .[facility] ONE 05/17/20 Breakfast Diabetic Diet 05/17/20 11:12 Glucose, Whole Blood Routine 05/17/20 16:35 Glucose, Whole Blood Routine 05/17/20 20:39 Glucose, Whole Blood Routine 05/18/20 07:05 Glucose, Whole Blood Routine 05/18/20 07:23 Basic Metabolic Panel DAILY@0600 Complete Blood Count Auto Diff DAILY@0600 05/18/20 09:00 cefTRIAXone sodium [Rocephin] 2 gm 0.9 % Sodium Chloride [Ns] 50 ml IV Q24H 05/18/20 09:15 vancomycin HCL 1,000 mg .ROUTE .[facility] 05/18/20 11:56 Glucose, Whole Blood Routine 05/18/20 16:37 Glucose, Whole Blood Routine 05/18/20 17:41 vancomycin HCL 1,000 mg .ROUTE .[facility] 05/18/20 20:47 Glucose, Whole Blood Routine 05/19/20 00:36 vancomycin HCL 1,000 mg .ROUTE .[facility] ONE 05/19/20 08:16 Basic Metabolic Panel Urgent Complete Blood Count Auto Diff DAILY@0600 Vancomycin Trough Routine 05/19/20 08:28 Glucose, Whole Blood Routine 05/19/20 09:30 vancomycin HCL 1,000 mg .ROUTE .[facility] 05/19/20 11:18 Glucose, Whole Blood Routine 05/19/20 16:59 Glucose, Whole Blood Routine 05/19/20 17:25 vancomycin HCL 1,000 mg .ROUTE .[facility] ONE 05/19/20 21:30 Glucose, Whole Blood Routine 05/20/20 Picc Line [IR cvc insert peripheral] Routine 05/20/20 01:01 vancomycin HCL 1,000 mg .ROUTE .[facility] ONE 05/20/20 01:37 vancomycin HCL 1,000 mg .ROUTE .[facility] ONE 05/20/20 07:50 Glucose, Whole Blood Routine 05/20/20 08:42 Basic Metabolic Panel DAILY@0600 Complete Blood Count Auto Diff DAILY@0600 Vancomycin Trough Routine 05/20/20 09:31 vancomycin HCL 1,000 mg .ROUTE .[facility] ONE 05/20/20 12:01 Glucose, Whole Blood Routine Laboratory Last Values WBC 5.4 X10*3/uL (4.8-10.8) 05/20/20 08:42 RBC 4.22 X10*6/uL (4.60-5.80) L 05/20/20 08:42 Hgb 11.1 g/dl (14.0-18.0) L 05/20/20 08:42 Hct 34.0 % (42-52) L 05/20/20 08:42 MCV 80.6 fL (80-98) 05/20/20 08:42 MCH 26.3 pg (27.0-33.0) L 05/20/20 08:42 MCHC 32.6 g/dl (31.0-36.0) 05/20/20 08:42 RDW 14.7 % (11.0-16.0) 05/20/20 08:42 Plt Count 266 X10*3/uL (160-400) 05/20/20 08:42 MPV 9.6 fL (9.4-12.4) 05/20/20 08:42 Immature Gran % (Auto) 0.2 % (0.0-0.4) 05/20/20 08:42 Neut % (Auto) 64.3 % (45-73) 05/20/20 08:42 Lymph % (Auto) 25.1 % (20-40) 05/20/20 08:42 [place] % (Auto) 6.5 % (2-11) 05/20/20 08:42 Eos % (Auto) 3.3 % (0-4) 05/20/20 08:42 Baso % (Auto) 0.6 % (0-2) 05/20/20 08:42 Lymph # (Auto) 1.4 X10*3/uL (1.2-4.9) 05/20/20 08:42 [place] # (Auto) 0.4 X10*3/uL (0.1-1.2) 05/20/20 08:42 Eos # (Auto) 0.2 X10*3/uL (0.0-0.4) 05/20/20 08:42 Baso # (Auto) 0.0 X10*3/uL (0.0-0.2) 05/20/20 08:42 Abs Immat Gran (auto) 0.01 X10*3/uL (0.00-0.03) 05/20/20 08:42 Absolute Neuts (auto) 3.5 X10*3/uL (2.0-8.3) 05/20/20 08:42 Absolute Nucleated RBC 0.000 X10*3/uL (0.0-0.012) 05/20/20 08:42 Nucleated RBC % (auto) 0.0 /100WBC (0.0-0.2) 05/20/20 08:42 Sodium 138 mmol/L (135-145) 05/20/20 08:42 Potassium 5.0 mmol/l (3.3-5.1) 05/20/20 08:42 Chloride 99 mmol/L (96-108) 05/20/20 08:42 Carbon Dioxide 32 mmol/L (22-29) H 05/20/20 08:42 Anion Gap 12 (12-20) 05/20/20 08:42 BUN 13 mg/dL (9-16) 05/20/20 08:42 Creatinine 0.95 mg/dL (0.5-1.4) 05/20/20 08:42 Estim Creat Clear Calc 113.3 05/20/20 08:42 Estimated GFR > 60 05/20/20 08:42 POC Glucose 115 mg/dL (60-115) 05/20/20 12:01 Random Glucose 207 mg/dL (60-115) H 05/20/20 08:42 Lactic Acid 1.6 mmol/L (0.5-2.0) 05/17/20 03:08 Calcium 8.8 mg/dL (8.4-10.2) 05/20/20 08:42 Vancomycin Trough 18.3 mcg/mL (10.0-20.0) 05/20/20 08:42 Coronavirus (PCR) NEGATIVE (Negative) 05/17/20 03:08 Preliminary micro results at discharge 05/17/20 03:08 Blood Culture - Preliminary Blood - Venous No growth after 48 hours. 05/17/20 03:08 Blood Culture - Preliminary Blood - Venous No growth after 48 hours. Discharge Plan Discharge Patient Disposition: er [facility] Referrals: Jose Manuel Alicea MD [Primary Care Provider] - Jacqueline Lira MD [Physician] - Earle Mendoza MD [Physician] - Discharge Medications: New vancomycin in 0.9 % sodium chl 1 gram/250 mL solution 1 g IV Q8H 39 Days Qty: 62750 RF: 0 oxycodone 5 mg Tablet 5 mg PO Q4H PRN (Reason: Pain, Severe (Pain Scale 7-10)) Qty: 10 RF: 0 Continued ferrous sulfate 325 mg (65 mg iron) Tablet 325 mg PO DAILY RF: 0 metformin 500 mg Tablet 1,000 mg PO BID RF: 0 gabapentin 600 mg Tablet 600 mg PO QID RF: 0 insulin lispro [Admelog U-100 Insulin lispro] 100 unit/mL Solution 1 sliding scale dose SUBCUT USEASDIRECTD RF: 0 Lantus U-100 Insulin 100 unit/mL solution 20 unit subcut BID RF: 0 methadone 30 MG tablet 30 mg PO DAILY RF: 0 Discharge Orders: Discharge Order (Routine); Ordered 05/20/20 Ordered By: Suresh Rahman Activity on Discharge: As tolerated Visit Report Forms: Patient Portal Discharge page Care Plan Goals: [facility] Concerns: OM Plan of Treatment: 6 weeks iv vanc, monitor weekly labs and vanc trough, possible followed by po afshan, follow up id and vascular
[2020-05-20 16:00] VITALS: BP 148/80; PULSE 76; RESP 18; TEMP 36.3; O2SAT 98
--- NOTE | 2020-05-20 16:10 | MHC.CM.PN ---
PATIENT TO TRANSFER TO [facility] FOR 18:00 [facility]IA [facility]. RN,UNIT, AND PATIENT AWARE OF PLAN. PATIENT STATES THAT HE WILL NOTIFY FAMILY ON HIS OWN.
[2020-05-21 08:23] LABS: Glucose, Whole Blood 288 mg/dL (60-115)
== END 2020-05-20 18:15 | disposition skilled nursing facility (03) | DRG 344 ==
LOC: HO.ED 01:44 → HO.S3 07:46
PROVIDERS: Internal Medicine; Admitting Provider Family Medicine; Emergency Provider Emergency Medicine Emergency Medical Services; PCP Internal Medicine; Visit Provider Internal Medicine
DX: E11.69 Type 2 diabetes mellitus with other specified complication (principal); M86.171 Other acute osteomyelitis, right ankle and foot; E11.42 Type 2 diabetes mellitus with diabetic polyneuropathy; R78.81 Bacteremia; F11.20 Opioid dependence, uncomplicated; E11.8 Type 2 diabetes mellitus with unspecified complications; B95.1 Streptococcus, group B, as the cause of diseases classified elsewhere; Z20.828 Contact with and (suspected) exposure to other viral communicable diseases; B95.62 Methicillin resistant Staphylococcus aureus infection as the cause of diseases classified elsewhere; Z79.4 Long term (current) use of insulin; Z79.899 Other long term (current) drug therapy
CPT/HCPCS: 36415; 36573; 80048; 80202; 82947; 83605; 85025; 87040; 96365; 96367; 99285; C1751; J0696; J1650; J3370; U0003

== ENCOUNTER 2020-09-03 10:47 | Outpatient (REF) | payer OTHER, SELFPAY ==
[2020-09-03 13:54] LABS: MANUAL DIFF FLAG NO
[2020-09-03 14:05] LABS: Basophils Percent Auto 0.4 % (0-2); Eosinophils Absolute Auto 0.1 X10*3/uL (0.0-0.4); Hematocrit 36.2 % (42-52); Hemoglobin 12.2 g/dl (14.0-18.0); Imm Gran Abs Auto 0.01 X10*3/uL (0.00-0.03); Imm Gran Pct Auto 0.2 % (0.0-0.4); Lymphocytes Absolute Auto 1.7 X10*3/uL (1.2-4.9); Lymphocytes Percent Auto 31.2 % (20-40); Mean Corpuscular HGB Conc 33.7 g/dl (31.0-36.0); Mean Corpuscular Hemoglobin 26.1 pg (27.0-33.0); Mean Corpuscular Volume 77.4 fL (80-98); Mean Platelet Volume 10.5 fL (9.4-12.4); Monocytes Absolute Auto 0.6 X10*3/uL (0.1-1.2); Monocytes Percent Auto 10.9 % (2-11); Neutrophils Absolute Auto 3.1 X10*3/uL (2.0-8.3); Neutrophils Percent Auto 55.3 % (45-73); Platelet Count 194 X10*3/uL (160-400); Red Blood Count 4.68 X10*6/uL (4.60-5.80); Red Cell Distribution Width 15.3 % (11.0-16.0); White Blood Count 5.6 X10*3/uL (4.8-10.8)
[2020-09-03 14:36] LABS: Alanine Aminotransferase 23 U/L (0-40); Albumin Level 4.4 g/dL (3.5-5.0); Alkaline Phosphatase 114 U/L (39-117); Anion Gap 19 (12-20); Aspartate Amino Transferase 32 U/L (5-37); Bilirubin Total 1.5 mg/dL (0.0-1.0); Blood Urea Nitrogen 28 mg/dL (9-16); Carbon Dioxide 29 mmol/L (22-29); Chloride 97 mmol/L (96-108); Estimated Glomerular Filt Rate 44; Glucose Random 304 mg/dL (60-115); Iron 76 mcg/dL (45-160); Percent Iron Saturation 20 % (15-50); Sodium 140 mmol/L (135-145); Total Iron Binding Capacity 387 mcg/dL (228-428); Total Protein 7.7 g/dL (6.5-8.0); Unsaturated Iron Binding 311 ug/dL
[2020-09-03 14:48] LABS: Glucose Urine UA 100 MG/DL (NEG); Leukocyte Esterase Urine NEG (NEG); Nitrite Urine NEG (NEG); PH 5.5 (5.0-8.0); Specific Gravity - Urine >= 1.030 (1.005-1.025); Urine Blood NEG (NEG); Urine Ketones NEG (NEG); Urine Protein 2+ MG/DL (NEG-TRACE)
[2020-09-03 14:48] LABS: Estimated Average Glucose 217 mg/dL; Hemoglobin A1c % 9.2 %
[2020-09-03 14:55] LABS: Appearance Urine HAZY; Color Urine YELLOW
[2020-09-03 15:01] LABS: Mucus Urine 3+ /LPF; RBC Urine 0 /HPF (0); Renal Epithelial Cells Urine TRACE /LPF; WBC Urine 0 /HPF (0-4)
[2020-09-03 15:32] LABS: Amphetamine Screen Urine Not Detected (Not Detect); Barbiturates, Urine Not Detected (Not Detect); Benzodiazepines Screen Urine Not Detected (Not Detect); Cannabinoid Screen Urine Not Detected (Not Detect); Cocaine Screen Urine Not Detected (Not Detect); Opiate Screen Urine POSITIVE (Not Detect); Phencyclidine Screen Urine Not Detected (Not Detect)
[2020-09-03 15:54] LABS: Microalbum/Creatinine Ratio Ur 115.9 ug/mg cr
== END 2020-09-03 10:48 | disposition home or self-care (01) ==
LOC: HO.10HDL 10:47
PROVIDERS: Visit Provider Internal Medicine
DX: E11.9 Type 2 diabetes mellitus without complications (principal); I73.9 Peripheral vascular disease, unspecified; D64.9 Anemia, unspecified
CPT/HCPCS: 80053; 80307; 81001; 82043; 83036; 83540; 85025

== ENCOUNTER 2021-01-30 22:40 | Inpatient (IN) | payer OTHER, SELFPAY ==
--- NOTE | ~2021-01-30 | CT_ITS ---
EXAMINATION: CT LEFT FOOT WITH CONTRAST CLINICAL INFORMATION: Rule out osteomyelitis of the heel COMPARISON: 05/19/2019 TECHNIQUE: 85 mL Omnipaque 350 intravenous contrast was utilized. Multidetector helical imaging was performed through the left foot. Coronal and sagittal reformatted images were created. FINDINGS: There is heterogeneous cortical erosion along the medial aspect of the posterior calcaneus suspicious for osteomyelitis. There is adjacent soft tissue swelling and multiple foci of gas with surrounding fluid. Associated skin defect is suspected medially (series 5 image 50/87). Status post amputation through the proximal aspects of the metatarsals. There is chronic appearing osseous hypertrophy/spurring at the cuboid and base of the fourth metatarsal. Chronic degenerative changes noted medially at the tarsometatarsal articulations. Alignment across the ankle appears anatomic. CT/CT foot LT w con IMPRESSION: Heterogeneous cortical erosion along the medial aspect of the posterior calcaneus, most suspicious for osteomyelitis. Overlying soft tissue swelling and multiple foci of gas with and surrounding fluid along with associated soft tissue defect. If clinically warranted, extent of osteomyelitis may be better evaluated with MRI.
--- NOTE | ~2021-01-30 | XR_ITS ---
EXAMINATION: XR HUMERUS, RIGHT CLINICAL INFORMATION: Evaluate for soft tissue foreign body. COMPARISON: None TECHNIQUE: AP and lateral views of the right humerus. FINDINGS: There is small radiolucent 1.9 cm radiopaque foreign body likely a small severed midline catheter adjacent to a new lead inserted well-positioned midline catheter. The radiolucent foreign body appears to be lying in the soft tissues. No bony abnormality seen. XR/XR humerus RT IMPRESSION: Approximately 1.9 cm radiopaque lucent foreign body within the soft tissues of right distal arm. Adjacent to the radiolucent foreign body lies a newly inserted midline catheter in good position. No gross bony abnormality.
[2021-01-30 23:19] VITALS: BP 112/79; PULSE 92; RESP 16; TEMP 36.7; O2SAT 98; BMI 25.2
--- NOTE | 2021-01-31 00:46 | ED_ITS ---
HPI - General Adult General Chief complaint: Extremity Injury, Lower Stated complaint: L foot infection Time Seen by Provider: 01/30/21 22:45 Source: patient Mode of arrival: wheelchair Limitations: no limitations History of Present Illness HPI narrative: Patient comes to the emergency room complaining of a wound in his left heel. Patient states for a couple of weeks he has been seeing pus draining out, and now it smells foul. Patient complaining of localized pain. Patient has had multiple toe amputations in both feet. Patient has history of osteomyelitis. Patient denies fever chills Related Data Home Medications Medication Instructions Recorded Confirmed ferrous sulfate 325 mg PO DAILY 05/06/20 05/17/20 gabapentin 600 mg PO QID 05/06/20 05/17/20 insulin lispro [Admelog U-100 1 sliding scale dose SUBCUT 05/06/20 05/17/20 Insulin lispro] USEASDIRECTD metformin 1,000 mg PO BID 05/06/20 05/17/20 Lantus U-100 Insulin 20 unit SUBCUT BID 05/17/20 05/17/20 methadone 30 mg PO DAILY 05/19/20 05/19/20 Previous Rx's Medication Instructions Recorded oxycodone 5 mg PO Q4H PRN #10 tab 05/20/20 vancomycin in 0.9 % sodium chl 1 g IV Q8H 39 Days #02649 ml 05/20/20 Allergies Allergy/AdvReac Type Severity Reaction Status Date / Time No Known Allergies Allergy Verified 05/17/20 01:17 [No Known Allergies*] Review of Systems Review of Systems: Constitutional : No Weight loss, No Fever, No Chills, No Night Sweats, No Fatigue, No Malaise ENT/Mouth : No Hearing loss, No Ear Pain, No Nasal Congestion, No Sinus Pain, No Hoarseness, No sore throat, No Rhinorrhea, No Swallowing Difficulty Eyes: No Eye Pain, No Swelling, No Redness, No Foreign Body, No Discharge, No Vision Changes Cardiovascular : No Chest Pain, No SOB, No Dyspnea on Exertion, No Orthopnea, No Edema, No Palpitations Respiratory : No Cough, No Sputum, No Wheezing, No Smoke Exposure, No Dyspnea Gastrointestinal : No Nausea, No Vomiting, No Diarrhea, No Constipation, No abdominal Pain, No Hematochezia, No Melena Genitourinary : no irregular bleeding, No Dysuria, No Urinary Frequency, No Hematuria, No Urinary Incontinence, No Urgency, No Flank Pain, No Urinary Flow Changes, No Hesitancy Musculoskeletal : No joint pain, No Myalgias, No Joint Swelling Skin : Complaining of diabetic foot ulcer infection in the left heel Neuro : No Weakness, No Numbness, No Paresthesias, No Loss of Consciousness, No Dizziness, No Headache Psych : No Anxiety/Panic, No Depression, No SI/HI/AH/VH, No Social Issues, Heme/Lymph: No Bruising, No Bleeding,No Lymphadenopathy Endocrine : No Polyuria, No Polydipsia, No Temperature Intolerance [facility] Past Medical History Medical History Anemia Diabetes History of substance use Non-healing ulcer of right foot Osteomyelitis Surgical History History of appendectomy History of carpal tunnel surgery of left wrist History 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 Family History Family History Mother Breast cancer CVD (cardiovascular disease) Diabetes Cancer Father Diabetes CVD (cardiovascular disease) Social History Social History Household Members: Friend(s) Housing: Unknown / Unable to assess Housing Other:: patient states his belongings are in his truck Do you presently have visiting nurse or other home services: No Alcohol intake: unknown Patient Tobacco Use Status: Tobacco use Unknown Second Hand Smoke Exposure: No Use of substances other than those prescribed or required for medical reasons: Unknown Advance Directives: No Advance Directives Information Provided: No service: No Current occupational status: unemployed Physical Exam Vital Signs: Vital Signs: Last Vital Signs Temp 99.1 F 01/31/21 01:56 Pulse 84 01/31/21 01:56 Resp 17 01/31/21 01:56 BP 105/61 01/31/21 01:56 Pulse Ox 99 01/31/21 01:56 Body Mass Index 25.2 Appearance: Alert. Oriented X3. No acute distress. Eyes: Pupils equal, round and reactive to light. ENT: Pharynx normal. Neck: Normal inspection. Neck supple. No lymph nodes noted. No crepitus CVS: Normal heart rate and rhythm. Pulses normal. Normal S1 and S2 Respiratory: No respiratory distress. Breath sounds normal. No Wheezing. No rales Abdomen: Soft and nontender. No rigidity. No distention. good BS x4 Skin: Skin warm and dry. Normal skin color. Normal skin turgor. Extremities: No lower extremity edema. All toes are surgical absent. Patient has a 2 cm x 1 cm ulcer in the heel, draining pus, foul-smelling, positive crepitus Neuro: Oriented X 3. No motor deficit. No sensory deficit. Moving all extermities. No slurred speech. Course Course Course Narrative: I discussed with the patient that he likely has osteomyelitis. Patient was given IV fluids, vancomycin and Zosyn. Sepsis is not suspected at this time. I discussed the patient with Dr. Oneal. Patient being admitted Medical Decision Making Lab Data Result diagrams: 01/31/21 00:47 01/31/21 00:47 Labs: Lab Results 01/31/21 01/31/21 01/31/21 Range/Units 00:47 00:47 00:47 WBC 7.9 (4.8-10.8) X10*3/uL RBC 3.06 L D (4.60-5.80) X10*6/uL Hgb 8.9 L D (14.0-18.0) g/dl Hct 25.7 L D (42-52) % MCV 84.0 (80-98) fL MCH 29.1 (27.0-33.0) pg MCHC 34.6 (31.0-36.0) g/dl RDW 13.8 (11.0-16.0) % Plt Count 230 (160-400) X10*3/uL MPV 9.5 (9.4-12.4) fL Immature Gran % (Auto) 0.9 H (0.0-0.4) % Neut % (Auto) 70.5 (45-73) % Lymph % (Auto) 18.9 L (20-40) % [place] % (Auto) 7.9 (2-11) % Eos % (Auto) 1.5 (0-4) % Baso % (Auto) 0.3 (0-2) % Lymph # (Auto) 1.5 (1.2-4.9) X10*3/uL [place] # (Auto) 0.6 (0.1-1.2) X10*3/uL Eos # (Auto) 0.1 (0.0-0.4) X10*3/uL Baso # (Auto) 0.0 (0.0-0.2) X10*3/uL Abs Immat Gran (auto) 0.07 H (0.00-0.03) X10*3/uL Absolute Neuts (auto) 5.6 (2.0-8.3) X10*3/uL Absolute Nucleated RBC 0.000 (0.0-0.012) X10*3/uL Nucleated RBC % (auto) 0.0 (0.0-0.2) /100WBC Sodium 131 L (135-145) mmol/L Potassium 4.8 (3.3-5.1) mmol/L Chloride 93 L (96-108) mmol/L Carbon Dioxide 30 H (22-29) mmol/L Anion Gap 13 (12-20) BUN 14 (9-16) mg/dL Creatinine 1.36 (0.5-1.4) mg/dL Estim Creat Clear Calc 79.2 Estimated GFR 59 POC Glucose (60-115) mg/dL Random Glucose 409 H* (60-115) mg/dL Lactic Acid 1.5 (0.5-2.0) mmol/L Calcium 8.8 (8.4-10.2) mg/dL Total Bilirubin 0.5 (0.0-1.0) mg/dL Direct Bilirubin 0.2 (0.0-0.5) mg/dL AST 13 D (5-37) U/L ALT 8 (0-40) U/L Alkaline Phosphatase 135 H (39-117) U/L Total Protein 7.1 (6.5-8.0) g/dL Albumin 3.3 L D (3.5-5.0) g/dL 01/31/21 Range/Units 02:26 WBC (4.8-10.8) X10*3/uL RBC (4.60-5.80) X10*6/uL Hgb (14.0-18.0) g/dl Hct (42-52) % MCV (80-98) fL MCH (27.0-33.0) pg MCHC (31.0-36.0) g/dl RDW (11.0-16.0) % Plt Count (160-400) X10*3/uL MPV (9.4-12.4) fL Immature Gran % (Auto) (0.0-0.4) % Neut % (Auto) (45-73) % Lymph % (Auto) (20-40) % [place] % (Auto) (2-11) % Eos % (Auto) (0-4) % Baso % (Auto) (0-2) % Lymph # (Auto) (1.2-4.9) X10*3/uL [place] # (Auto) (0.1-1.2) X10*3/uL Eos # (Auto) (0.0-0.4) X10*3/uL Baso # (Auto) (0.0-0.2) X10*3/uL Abs Immat Gran (auto) (0.00-0.03) X10*3/uL Absolute Neuts (auto) (2.0-8.3) X10*3/uL Absolute Nucleated RBC (0.0-0.012) X10*3/uL Nucleated RBC % (auto) (0.0-0.2) /100WBC Sodium (135-145) mmol/L Potassium (3.3-5.1) mmol/L Chloride (96-108) mmol/L Carbon Dioxide (22-29) mmol/L Anion Gap (12-20) BUN (9-16) mg/dL Creatinine (0.5-1.4) mg/dL Estim Creat Clear Calc Estimated GFR POC Glucose 393 H* (60-115) mg/dL Random Glucose (60-115) mg/dL Lactic Acid (0.5-2.0) mmol/L Calcium (8.4-10.2) mg/dL Total Bilirubin (0.0-1.0) mg/dL Direct Bilirubin (0.0-0.5) mg/dL AST (5-37) U/L ALT (0-40) U/L Alkaline Phosphatase (39-117) U/L Total Protein (6.5-8.0) g/dL Albumin (3.5-5.0) g/dL Imaging Data CT of the foot: Radiologist's impression: There is heterogeneous cortical erosion along the medial aspect of the posterior calcaneus suspicious for osteomyelitis. There is adjacent soft tissue swelling and multiple foci of gas with surrounding fluid. Associated skin defect is suspected medially (series 5 image 50/87). Status post amputation through the proximal aspects of the metatarsals. There is chronic appearing osseous hypertrophy/spurring at the cuboid and base of the fourth metatarsal. Chronic degenerative changes noted medially at the tarsometatarsal articulations. Alignment across the ankle appears anatomic. CT/CT foot LT w con IMPRESSION: Heterogeneous cortical erosion along the medial aspect of the posterior calcaneus, most suspicious for osteomyelitis. Overlying soft tissue swelling and multiple foci of gas with and surrounding fluid along with associated soft tissue defect. If clinically warranted, extent of osteomyelitis may be better evaluated with MRI. Discharge Plan Discharge Clinical Impression: Foot osteomyelitis, left Patient Disposition: Admitted As Inpatient Prescriptions: No Action ferrous sulfate 325 mg (65 mg iron) Tablet 325 mg PO DAILY RF: 0 metformin 500 mg Tablet 1,000 mg PO BID RF: 0 gabapentin 600 mg Tablet 600 mg PO QID RF: 0 insulin lispro [Admelog U-100 Insulin lispro] 100 unit/mL Solution 1 sliding scale dose SUBCUT USEASDIRECTD RF: 0 Lantus U-100 Insulin 100 unit/mL solution 20 unit subcut BID RF: 0 methadone 30 MG tablet 30 mg PO DAILY RF: 0 vancomycin in 0.9 % sodium chl 1 gram/250 mL solution 1 g IV Q8H 39 Days Qty: 25273 RF: 0 oxycodone 5 mg Tablet 5 mg PO Q4H PRN (Reason: Pain, Severe (Pain Scale 7-10)) Qty: 10 RF: 0
[2021-01-31 00:53] LABS: MANUAL DIFF FLAG NO
[2021-01-31 00:55] LABS: Basophils Percent Auto 0.3 % (0-2); Eosinophils Absolute Auto 0.1 X10*3/uL (0.0-0.4); Eosinophils Percent Auto 1.5 % (0-4); Hematocrit 25.7 % (42-52); Hemoglobin 8.9 g/dl (14.0-18.0); Imm Gran Abs Auto 0.07 X10*3/uL (0.00-0.03); Imm Gran Pct Auto 0.9 % (0.0-0.4); Lymphocytes Absolute Auto 1.5 X10*3/uL (1.2-4.9); Lymphocytes Percent Auto 18.9 % (20-40); Mean Corpuscular HGB Conc 34.6 g/dl (31.0-36.0); Mean Corpuscular Hemoglobin 29.1 pg (27.0-33.0); Mean Platelet Volume 9.5 fL (9.4-12.4); Monocytes Absolute Auto 0.6 X10*3/uL (0.1-1.2); Monocytes Percent Auto 7.9 % (2-11); Neutrophils Absolute Auto 5.6 X10*3/uL (2.0-8.3); Neutrophils Percent Auto 70.5 % (45-73); Platelet Count 230 X10*3/uL (160-400); Red Blood Count 3.06 X10*6/uL (4.60-5.80); Red Cell Distribution Width 13.8 % (11.0-16.0); White Blood Count 7.9 X10*3/uL (4.8-10.8)
[2021-01-31] MEDS: 0.9 % Sodium Chloride 1,000 ML 999 ML IVCONT ×2 (01:01→01:56)
[2021-01-31] MEDS: Piperacillin Sodium/Tazobactam 3.375 GM in 0.9 % Sodium Chloride 50 ML IV ×4 (01:01→17:02)
[2021-01-31 01:12] LABS: Lactic Acid 1.5 mmol/L (0.5-2.0)
[2021-01-31 01:19] LABS: Alanine Aminotransferase 8 U/L (0-40); Albumin Level 3.3 g/dL (3.5-5.0); Alkaline Phosphatase 135 U/L (39-117); Anion Gap 13 (12-20); Aspartate Amino Transferase 13 U/L (5-37); Bilirubin Direct 0.2 mg/dL (0.0-0.5); Bilirubin Total 0.5 mg/dL (0.0-1.0); Blood Urea Nitrogen 14 mg/dL (9-16); Calcium 8.8 mg/dL (8.4-10.2); Carbon Dioxide 30 mmol/L (22-29); Chloride 93 mmol/L (96-108); Creatinine Clr Calc Pharmacy 79.2; Estimated Glomerular Filt Rate 59; Glucose Random 409 mg/dL (60-115); Potassium 4.8 mmol/L (3.3-5.1); Sodium 131 mmol/L (135-145); Total Protein 7.1 g/dL (6.5-8.0)
[2021-01-31] MEDS: vancomycin HCL 1,000 MG in 0.9 % Sodium Chloride 250 ML 270 MG IV ×2 (01:53→12:12)
[2021-01-31] MEDS: Insulin Regular, Human 100 UNIT/ML 3 ML VIAL 10 UNIT IVPUSH (01:53)
[2021-01-31 01:56] VITALS: BP 105/61; PULSE 84; RESP 17; TEMP 37.3; O2SAT 99
[2021-01-31] MEDS: iohexoL 350 MG/ML 100 ML INFUS..BTL 85 ML IV (01:57)
[2021-01-31 02:40] LABS: Glucose, Whole Blood 393 mg/dL (60-115)
--- NOTE | 2021-01-31 02:53 | P.HPHOSP_ITS ---
History of Present Illness Date of Service: 01/31/21 Chief Complaint: Left heel ulcer 35-year-old male with a past medical history of diabetes, anemia, diabetic neuropathy, history of diabetic foot ulcer, history of bilateral toe amputations, history of osteomyelitis, substance abuse, opiate dependence on methadone presented to the hospital with a chief complaint of left heel ulcer with pain, difficulty ambulation, discharge for the past 2 weeks. Patient denies any trauma. Patient denies any chest pain or palpitations. Denies any numbness tingling. Denies any fever chills. Review of all other systems is negative except mentioned above ER course: Per ER team patient noted to have pus discharge from the left heel; left foot CT scan showed osteomyelitis as well as gas in the soft tissues-preservative in the setting of open ulcer; no evidence of necrosis; less concern for any necrotizing infection; given vanc and Zosyn. Admitted to the hospital for further management. [facility] Medical History (Updated 02/06/21 @ 17:02 by Alexandria Stack MD) Anemia Diabetes Foot abscess, left History of substance use Non-healing ulcer of right foot Osteomyelitis Family History Mother Breast cancer CVD (cardiovascular disease) Diabetes Cancer Father Diabetes CVD (cardiovascular disease) Surgical History History of appendectomy History of carpal tunnel surgery of left wrist History 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 Social History Household Members: Family Housing: Unknown / Unable to assess Housing Other:: patient states his belongings are in his truck Do you presently have visiting nurse or other home services: No Unable to assess alcohol history related to: Unknown Alcohol intake: unknown Patient Tobacco Use Status: Tobacco use Unknown Second Hand Smoke Exposure: No Use of substances other than those prescribed or required for medical reasons: Unknown Currently Displaying Signs/Symptoms of Drug Intoxication Withdrawal: No Advance Directives: No Advance Directives Information Provided: No Do you have thoughts of harming others: None Do you have a plan to hurt others: No Plan Recently lost weight without trying: No service: No Current occupational status: unemployed Meds Allergies Allergy/AdvReac Type Severity Reaction Status Date / Time No Known Allergies Allergy Verified 05/17/20 01:17 [No Known Allergies*] Active Medications: Current Medications Generic Name Dose Route Start Last Admin Trade Name Raysa PRN Reason Stop Dose Admin Acetaminophen 650 mg 01/31/21 02:49 Acetaminophen 325 Mg Tablet PO Q6H PRN Pain, Mild (Pain Scale 1-3) Gabapentin 600 mg 01/31/21 09:00 Gabapentin 600 Mg Tablet PO QID [facility] Heparin Sodium (Porcine) 5,000 unit 01/31/21 03:00 Heparin Sodium,Porcine 5,000 Unit/Ml Vial SUBCUT Q8H [facility] Vancomycin HCl 1,000 mg/ 270 mls @ 270 mls/hr 01/31/21 03:00 01/31/21 02:51 Sodium Chloride IV Not Given Q12H [facility] Piperacillin Sod/Tazobactam 50 mls @ 100 mls/hr 01/31/21 03:00 01/31/21 02:51 Sod 3.375 gm/ Sodium Chloride IV Not Given Q6H [facility] Insulin Glargine 10 unit 01/31/21 21:00 Insulin Glargine,Hum.Rec.Anlog 100 Unit/Ml 10 Ml Vial SUBCUT BEDTIME [facility] Insulin Human Lispro 0 unit 01/31/21 07:30 Insulin Lispro 100 Unit/Ml 3 Ml Vial SUBCUT QIDACHS [facility] Protocol Magnesium Hydroxide 30 ml 01/31/21 02:49 Milk Of Magnesia 30 Ml Oral.Susp PO DAILY PRN Constipation Melatonin 6 mg 01/31/21 02:49 Melatonin 3 Mg Tablet PO BEDTIME PRN Insomnia Metformin HCl 1,000 mg 01/31/21 09:00 Metformin Hcl 1,000 Mg Tablet PO BID [facility] Oxycodone HCl 5 mg 01/31/21 02:49 Oxycodone Hcl Immed Release 5 Mg Tablet PO Q6H PRN Pain, Severe (Pain Scale 7-10) Pharmacy Consult 1 each 01/31/21 00:09 Consult Rx Vancomycin Dosing MISCELLANE DAILY PRN Consult order Pharmacy Consult 1 each 01/31/21 02:47 Consult Rx Vancomycin Dosing MISCELLANE DAILY PRN Consult order Sodium Chloride 3 ml 01/31/21 08:00 0.9 % Sodium Chloride Flush 3 [facility] Medications Medication Instructions Recorded Confirmed Last Taken Type ferrous sulfate 325 mg (65 mg 325 mg PO DAILY 05/06/20 01/31/21 05/05/20 History iron) tablet gabapentin 600 mg tablet 600 mg PO QID 05/06/20 01/31/21 05/05/20 History insulin lispro 100 unit/mL 1 sliding scale dose SUBCUT 05/06/20 01/31/21 Unknown History subcutaneous solution (Admelog USEASDIRECTD U-100 Insulin lispro) metformin 500 mg tablet 1,000 mg PO BID 05/06/20 01/31/21 05/05/20 History methadone 70 mg PO DAILY 05/19/20 01/31/21 2 Days Ago History ~05/17/20 30 MG insulin glargine 100 unit/mL (3 20 unit SUBCUT BID 01/31/21 01/31/21 Unknown History mL) subcutaneous pen (Basaglar KwikPen U-100 Insulin) Physical Exam Vital Signs and Narrative: Vital Signs: Last Vital Signs Temp 99.1 F 01/31/21 01:56 Pulse 84 01/31/21 01:56 Resp 17 01/31/21 01:56 BP 105/61 01/31/21 01:56 Pulse Ox 99 01/31/21 01:56 Body Mass Index 25.2 Gen: Appears be in no acute distress HEENT: NCAT, Moist mucosa. Pulmonary: Vesicular breath sounds, fair air entry CVS: Normal S1-S2 Abdomen: BS+, Soft, Nontender Extremities: Warm well perfused; left heel open ulcer noted with surrounding erythema and scant per see discharge; Neuro: Alert and awake. Results Labs CBC and Chem 7: 02/01/21 05:38 02/09/21 08:19 Labs: Laboratory Results - last 24 hr 01/31/21 01/31/21 01/31/21 00:47 00:47 00:47 MCV 84.0 MCH 29.1 MCHC 34.6 RDW 13.8 Plt Count 230 MPV 9.5 Immature Gran % (Auto) 0.9 H Neut % (Auto) 70.5 Lymph % (Auto) 18.9 L [place] % (Auto) 7.9 Eos % (Auto) 1.5 Baso % (Auto) 0.3 Lymph # (Auto) 1.5 [place] # (Auto) 0.6 Eos # (Auto) 0.1 Baso # (Auto) 0.0 Abs Immat Gran (auto) 0.07 H Absolute Neuts (auto) 5.6 Absolute Nucleated RBC 0.000 Nucleated RBC % (auto) 0.0 Anion Gap 13 Estim Creat Clear Calc 79.2 Estimated GFR 59 POC Glucose Random Glucose 409 H* Lactic Acid 1.5 Calcium 8.8 Total Bilirubin 0.5 Direct Bilirubin 0.2 AST 13 D ALT 8 Alkaline Phosphatase 135 H Total Protein 7.1 Albumin 3.3 L D 01/31/21 02:26 MCV MCH MCHC RDW Plt Count MPV Immature Gran % (Auto) Neut % (Auto) Lymph % (Auto) [place] % (Auto) Eos % (Auto) Baso % (Auto) Lymph # (Auto) [place] # (Auto) Eos # (Auto) Baso # (Auto) Abs Immat Gran (auto) Absolute Neuts (auto) Absolute Nucleated RBC Nucleated RBC % (auto) Anion Gap Estim Creat Clear Calc Estimated GFR POC Glucose 393 H* Random Glucose Lactic Acid Calcium Total Bilirubin Direct Bilirubin AST ALT Alkaline Phosphatase Total Protein Albumin Imaging Radiologist's Impressions: Impressions Foot CT 01/31/21 00:09 IMPRESSION: Heterogeneous cortical erosion along the medial aspect of the posterior calcaneus, most suspicious for osteomyelitis. Overlying soft tissue swelling and multiple foci of gas with and surrounding fluid along with associated soft tissue defect. If clinically warranted, extent of osteomyelitis may be better evaluated with MRI. Assessment and Plan (1) Foot osteomyelitis, left: Qualifiers: Osteomyelitis type: unspecified type Qualified Code(s): M86.9 - Osteomyelitis, unspecified Status: Acute 35-year-old male with a past medical history of diabetes, polysubstance abuse, opiate dependence on methadone, diabetic neuropathy, history of bilateral toe amputation, history of osteomyelitis presented to the hospital with a chief complaint of left heel ulcer with pain and discharge for 2 weeks; noted to have osteomyelitis. Diabetic heel ulcer of the left foot/osteomyelitis/gas in the soft tissues: Noted to have open ulcer with pus discharge. Will continue IV vancomycin and Zosyn Will consult general surgery and ID for further recommendations Wound care Pain control Diabetes: Will continue Lantus 10 units plus insulin sliding scale. Will monitor fingerstick glucose and adjust insulins as needed. Hold home metformin. History of opiate dependence: Patient on methadone. Will consult Addiction Medicine for confirmation and continuation of his home methadone. History of neuropathy: Continue gabapentin DVT prophylaxis: Subcu heparin Code status: Full code Quality Stroke Does the patient have a stroke diagnosis?: No VTE Prior VTE?: No VTE Risk Level:: Medical - moderate - high VTE Device Contraindication: Treatment Not Indicated VTE Drug Contraindication: N/A - Med Ordered
[2021-01-31] MEDS: Heparin Sodium,Porcine 5,000 UNIT/ML VIAL 5000 UNIT SUBCUT ×2 (03:33→11:39)
[2021-01-31 04:58] LABS: COVID-19 Test Negative (Negative); IDNOW Serial# 9DD0AD1C
[2021-01-31 06:19] LABS: Glucose, Whole Blood 359 mg/dL (60-115)
[2021-01-31 07:28] LABS: MANUAL DIFF FLAG NO
[2021-01-31 07:39] LABS: Basophils Percent Auto 0.3 % (0-2); Eosinophils Absolute Auto 0.1 X10*3/uL (0.0-0.4); Eosinophils Percent Auto 2.1 % (0-4); Hemoglobin 8.4 g/dl (14.0-18.0); Imm Gran Abs Auto 0.03 X10*3/uL (0.00-0.03); Imm Gran Pct Auto 0.5 % (0.0-0.4); Lymphocytes Absolute Auto 1.2 X10*3/uL (1.2-4.9); Lymphocytes Percent Auto 19.4 % (20-40); Mean Corpuscular HGB Conc 33.6 g/dl (31.0-36.0); Mean Corpuscular Hemoglobin 28.5 pg (27.0-33.0); Mean Corpuscular Volume 84.7 fL (80-98); Mean Platelet Volume 9.6 fL (9.4-12.4); Monocytes Absolute Auto 0.5 X10*3/uL (0.1-1.2); Monocytes Percent Auto 7.8 % (2-11); Neutrophils Absolute Auto 4.3 X10*3/uL (2.0-8.3); Neutrophils Percent Auto 69.9 % (45-73); Platelet Count 193 X10*3/uL (160-400); Red Blood Count 2.95 X10*6/uL (4.60-5.80); Red Cell Distribution Width 13.9 % (11.0-16.0); White Blood Count 6.2 X10*3/uL (4.8-10.8)
[2021-01-31 07:40] VITALS: BP 128/74; PULSE 71; RESP 18; TEMP 36.8; O2SAT 96
[2021-01-31 07:48] LABS: Glucose, Whole Blood 333 mg/dL (60-115)
[2021-01-31 08:12] LABS: Anion Gap 10 (12-20); Blood Urea Nitrogen 11 mg/dL (9-16); Calcium 8.6 mg/dL (8.4-10.2); Carbon Dioxide 32 mmol/L (22-29); Chloride 97 mmol/L (96-108); Creatinine Clr Calc Pharmacy 90.5; Estimated Glomerular Filt Rate > 60; Glucose Random 358 mg/dL (60-115); Potassium 4.5 mmol/L (3.3-5.1); Sodium 134 mmol/L (135-145)
[2021-01-31] MEDS: Gabapentin 600 MG TABLET PO ×4 (08:20→20:03)
[2021-01-31] MEDS: Insulin Lispro 100 UNIT/ML 3 ML VIAL SUBCUT ×4 (08:20→20:06)
[2021-01-31] MEDS: oxyCODONE HCl Immed Release 5 MG TABLET PO ×2 (08:20→17:00)
[2021-01-31] MEDS: 0.9 % Sodium Chloride Flush 3 ML SYRINGE IVFLUSH (08:21)
--- NOTE | 2021-01-31 09:21 | MHC.RECOVSUP ---
Recovery Support note: Patient is a 35 year old Mohawk speaking male who presented [place] [facility] due to a swollen foot and was medically admitted. This assembly instructions writer met with patient in to discuss his recovery. Patient reports he has been doing really well with his recovery and has found the methadone program to be very helpful. Patient reports taking 70mg of methadone through [facility] in [place] and that he was last dosed yesterday. Patient reports he does not feel the need to discuss community supports at this time as he is doing well and feels supported. This assembly instructions writer contacted [facility] - [phone] - and spoke with Devika TURNER. Devika confirms that patient was lasted dosed on 01/30 and that he got 70mg of methadone. Discussed case with patient's RN and Radha Sewell NP.
[2021-01-31 11:13] LABS: Glucose, Whole Blood 281 mg/dL (60-115)
[2021-01-31 11:20] VITALS: BP 117/66; PULSE 77; RESP 18; TEMP 36.7; O2SAT 95
[2021-01-31 11:44] LABS: Alanine Aminotransferase 6 U/L (0-40); Albumin Level 2.9 g/dL (3.5-5.0); Alkaline Phosphatase 125 U/L (39-117); Aspartate Amino Transferase 11 U/L (5-37); Bilirubin Direct 0.2 mg/dL (0.0-0.5); Bilirubin Total 0.5 mg/dL (0.0-1.0); Total Protein 6.4 g/dL (6.5-8.0); Unsaturated Iron Binding 169 ug/dL
[2021-01-31 11:53] LABS: Iron 30 mcg/dL (45-160); Percent Iron Saturation 15 % (15-50); Total Iron Binding Capacity 199 mcg/dL (228-428)
[2021-01-31 12:01] LABS: Ferritin 276 ng/mL (20-250)
--- NOTE | 2021-01-31 12:18 | MHC.CM.PN ---
CM MET WITH PT WHO REPORTS HE HAS BEEN STAYING WITH A FRIEND, IS FULLY INDEPENDENT, HAS NO HOME SERVICES, AND NO DME. PT REPORTS BEING ACTIVE WITH [facility] IN [place]. PT REPORTS THE HCP ON FILE NAMING HIS Aubrey AGUAYO HIS AGENT IS CORRECT. PT ALSO CONFIRMS LISTED PCP, YANA FISHER, ACCURATE. PT DISCHARGED FROM [facility] [place] ON 05/20/20 TO [facility] FOR [facility] IV ABX, PT REPORTS WHILE HE DID GO TO THE SNF, HE DID NOT COMPLETE THE TREATMENT. PT REPORTS IF HE NEEDS IV ABX UPON DISCHARGE HE IS WILLING TO GO TO A SNF EVEN IF IT IS OUT OF THE AREA. PER DISCUSSION, REFERRALS WERE PLACED TO TWO FACILITIES THAT ARE ABLE TO ACCEPT PTS ON METHADONE MAINTENANCE. CURRENT DC PLAN IS HOME VS SNF FOR IV ABX TRANSPORT TBD BY DISPOSITION
--- NOTE | 2021-01-31 13:35 | P.CONGS_ITS ---
Assessment and Plan (1) Foot osteomyelitis, left: Start date: 01/30/21 Qualifiers: Osteomyelitis type: unspecified type Qualified Code(s): M86.9 - Osteomyelitis, unspecified Status: Acute 35 year old male with diabetic foot infection , significant soft tissue involvement and purulent deep abscess cavity, opened up at bedside with I&D and irrigated and packed. CT showing osteo and not surprisingly. Wound deep cavity didnt necessarily open to bone being visulaized. plan - pack bid with betadine saline dressing, if not enough may need to go to the OR to explore but fine for now. ID - f/u on cultures and I&D for antibiotics Cont dressings for now bid and when ok to dc home can f/u with us as outpt in wound care center (2) Diabetic infection of left foot: Status: Acute History of Present Illness Consult details Consult date: 01/31/21 Reason for consult: other (left foot wound and infection) Requesting physician: Yoni Oneal Narrative: The pt is a 35 year old male [facility] who has not always been compliant with care. Has bilateral TMA and wounds on heels in past. Left the [place] so hasnt been seen at the center for a few months. Comes into the shopital with infection left foot and wounds draining pus and now CT scan showing osteo of the medial calcaneous, soft tissue abscess air fluid levels. Pt says he is not using drugs recently on his methadone Review of Systems Review of Systems: Constitutional : No Weight loss, No Fever, No Chills, No Night Sweats, No Fatigue, No Malaise ENT/Mouth : No Hearing loss, No Ear Pain, No Nasal Congestion, No Sinus Pain, No Hoarseness, No sore throat, No Rhinorrhea, No Swallowing Difficulty Eyes: No Eye Pain, No Swelling, No Redness, No Foreign Body, No Discharge, No Vision Changes Cardiovascular : No Chest Pain, No SOB, No Dyspnea on Exertion, No Orthopnea, No Edema, No Palpitations Respiratory : No Cough, No Sputum, No Wheezing, No Smoke Exposure, No Dyspnea Gastrointestinal : No Nausea, No Vomiting, No Diarrhea, No Constipation, No abdominal Pain, No Hematochezia, No Melena Genitourinary : no irregular bleeding, No Dysuria, No Urinary Frequency, No Hematuria, No Urinary Incontinence, No Urgency, No Flank Pain, No Urinary Flow Changes, No Hesitancy Musculoskeletal : No joint pain, No Myalgias, No Joint Swelling Skin : Complaining of diabetic foot ulcer infection in the left heel Neuro : No Weakness, No Numbness, No Paresthesias, No Loss of Consciousness, No Dizziness, No Headache Psych : No Anxiety/Panic, No Depression, No SI/HI/AH/VH, No Social Issues, Heme/Lymph: No Bruising, No Bleeding,No Lymphadenopathy Endocrine : No Polyuria, No Polydipsia, No Temperature Intolerance [facility] Past Medical History Medical History Anemia Diabetes History of substance use Non-healing ulcer of right foot Osteomyelitis Family History Family History Mother Breast cancer CVD (cardiovascular disease) Diabetes Cancer Father Diabetes CVD (cardiovascular disease) Surgical History Surgical History History of appendectomy History of carpal tunnel surgery of left wrist History 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 Social History Social History Household Members: Family Housing: Unknown / Unable to assess Housing Other:: patient states his belongings are in his truck Do you presently have visiting nurse or other home services: No Unable to assess alcohol history related to: Unknown Alcohol intake: unknown Patient Tobacco Use Status: Tobacco use Unknown Second Hand Smoke Exposure: No Use of substances other than those prescribed or required for medical reasons: Unknown Advance Directives: No Advance Directives Information Provided: No Do you have thoughts of harming others: None Do you have a plan to hurt others: No Plan Recently lost weight without trying: No service: No Current occupational status: unemployed Meds Allergies Allergy/AdvReac Type Severity Reaction Status Date / Time No Known Allergies Allergy Verified 05/17/20 01:17 [No Known Allergies*] Active Medications: Current Medications Generic Name Dose Route Start Last Admin Trade Name Freq PRN Reason Stop Dose Admin Acetaminophen 650 mg 01/31/21 02:49 Acetaminophen 325 Mg Tablet PO Q6H PRN Pain, Mild (Pain Scale 1-3) Gabapentin 600 mg 01/31/21 09:00 01/31/21 11:51 Gabapentin 600 Mg Tablet PO 600 mg QID DAY[facility] Administration Heparin Sodium (Porcine) 5,000 unit 01/31/21 03:00 01/31/21 11:39 Heparin Sodium,Porcine 5,000 Unit/Ml Vial SUBCUT 5,000 unit Q8H [facility] Administration Piperacillin Sod/Tazobactam 50 mls @ 100 mls/hr 01/31/21 06:00 01/31/21 12:11 Sod 3.375 gm/ Sodium Chloride IV Infused Q6H [facility] Infusion Vancomycin HCl 1,000 mg/ 270 mls @ 270 mls/hr 01/31/21 13:00 01/31/21 12:12 Sodium Chloride IV 270 mls/hr Q12H [facility] Administration Sodium Chloride 1,000 mls @ 80 mls/hr 01/31/21 12:00 Ns IVCONT .[id number] [facility] Clindamycin Phosphate 600 mg in 50 mls @ 100 mls/hr 01/31/21 14:00 Cleocin IV Q8H [facility] Insulin Glargine 10 unit 01/31/21 21:00 Insulin Glargine,Hum.Rec.Anlog 100 Unit/Ml 10 Ml Vial SUBCUT BEDTIME [facility] Insulin Human Lispro 0 unit 01/31/21 07:30 01/31/21 11:40 Insulin Lispro 100 Unit/Ml 3 Ml Vial SUBCUT 6 unit QIDACHS [facility] Administration Protocol Magnesium Hydroxide 30 ml 01/31/21 02:49 Milk Of Magnesia 30 Ml Oral.Susp PO DAILY PRN Constipation Melatonin 6 mg 01/31/21 02:49 Melatonin 3 Mg Tablet PO BEDTIME PRN Insomnia Metformin HCl 1,000 mg 01/31/21 17:00 Metformin Hcl 1,000 Mg Tablet PO BIDWM [facility] Methadone HCl 70 mg 01/31/21 12:00 01/31/21 11:51 Methadone Hcl 1 Mg/0.1 Ml Oral.Conc PO 70 mg DAILY [facility] Administration Oxycodone HCl 5 mg 01/31/21 02:49 01/31/21 08:20 Oxycodone Hcl Immed Release 5 Mg Tablet PO 5 mg Q6H PRN Administration Pain, Severe (Pain Scale 7-10) Pharmacy Consult 1 each 01/31/21 00:09 Consult Rx Vancomycin Dosing MISCELLANE DAILY PRN Consult order Pharmacy Consult 1 each 01/31/21 02:47 Consult Rx Vancomycin Dosing MISCELLANE DAILY PRN Consult order Sodium Chloride 3 ml 01/31/21 08:00 01/31/21 08:21 0.9 % Sodium Chloride Flush 3 Ml Syringe IVFLUSH 3 ml QSHIFT [facility] Administration Home Medications Medication Instructions Recorded Confirmed Last Taken Type ferrous sulfate 325 mg PO DAILY 05/06/20 01/31/21 05/05/20 History gabapentin 600 mg PO QID 05/06/20 01/31/21 05/05/20 History insulin lispro [Admelog U-100 1 sliding scale dose SUBCUT 05/06/20 01/31/21 Un known History Insulin lispro] USEASDIRECTD metformin 1,000 mg PO BID 05/06/20 01/31/21 05/05/20 History methadone 70 mg PO DAILY 05/19/20 01/31/21 2 Days Ago History ~05/17/20 30 MG insulin glargine [Basaglar KwikPen 20 unit SUBCUT BID 01/31/21 01/31/21 Unknown History U-100 Insulin] Physical Exam Vital Signs: Vital Signs: Last Vital Signs Temp 98.0 F 01/31/21 11:20 Pulse 77 01/31/21 11:20 Resp 18 01/31/21 11:20 BP 117/66 01/31/21 11:20 Pulse Ox 95 01/31/21 11:20 Body Mass Index 25.2 Extrem: Other: left foot TMA site looks good. pt with good palpable DP pulse high up the plantar aspect distally has a small open wound - little bit of exposed fat the medial aspect of the plantar area near the heel with two open wounds, posterior one tracking deep and with purulent material coming out. the other one is smaller tracks a little deep but not to purulent material or large cavity Results Labs Result diagrams: 01/31/21 07:22 01/31/21 07:22 Labs: Abnormal lab results 01/31/21 01/31/21 01/31/21 Range/Units 00:47 00:47 02:26 RBC 3.06 L D (4.60-5.80) X10*6/uL Hgb 8.9 L D (14.0-18.0) g/dl Hct 25.7 L D (42-52) % Immature Gran % (Auto) 0.9 H (0.0-0.4) % Lymph % (Auto) 18.9 L (20-40) % Abs Immat Gran (auto) 0.07 H (0.00-0.03) X10*3/uL Sodium 131 L (135-145) mmol/L Chloride 93 L (96-108) mmol/L Carbon Dioxide 30 H (22-29) mmol/L Anion Gap (12-20) POC Glucose 393 H* (60-115) mg/dL Random Glucose 409 H* (60-115) mg/dL Iron (45-160) mcg/dL TIBC (228-428) mcg/dL Ferritin (20-250) ng/mL Alkaline Phosphatase 135 H (39-117) U/L Total Protein (6.5-8.0) g/dL Albumin 3.3 L D (3.5-5.0) g/dL 01/31/21 01/31/21 01/31/21 Range/Units 06:14 07:22 07:22 RBC 2.95 L (4.60-5.80) X10*6/uL Hgb 8.4 L (14.0-18.0) g/dl Hct 25.0 L (42-52) % Immature Gran % (Auto) 0.5 H (0.0-0.4) % Lymph % (Auto) 19.4 L (20-40) % Abs Immat Gran (auto) (0.00-0.03) X10*3/uL Sodium 134 L (135-145) mmol/L Chloride (96-108) mmol/L Carbon Dioxide 32 H (22-29) mmol/L Anion Gap 10 L (12-20) POC Glucose 359 H* (60-115) mg/dL Random Glucose 358 H* (60-115) mg/dL Iron 30 L (45-160) mcg/dL TIBC 199 L (228-428) mcg/dL Ferritin 276 H (20-250) ng/mL Alkaline Phosphatase 125 H (39-117) U/L Total Protein 6.4 L (6.5-8.0) g/dL Albumin 2.9 L (3.5-5.0) g/dL 01/31/21 01/31/21 Range/Units 07:44 11:06 RBC (4.60-5.80) X10*6/uL Hgb (14.0-18.0) g/dl Hct (42-52) % Immature Gran % (Auto) (0.0-0.4) % Lymph % (Auto) (20-40) % Abs Immat Gran (auto) (0.00-0.03) X10*3/uL Sodium (135-145) mmol/L Chloride (96-108) mmol/L Carbon Dioxide (22-29) mmol/L Anion Gap (12-20) POC Glucose 333 H 281 H (60-115) mg/dL Random Glucose (60-115) mg/dL Iron (45-160) mcg/dL TIBC (228-428) mcg/dL Ferritin (20-250) ng/mL Alkaline Phosphatase (39-117) U/L Total Protein (6.5-8.0) g/dL Albumin (3.5-5.0) g/dL Short CBC 01/31/21 01/31/21 Range/Units 00:47 07:22 WBC 7.9 6.2 (4.8-10.8) X10*3/uL Hgb 8.9 L D 8.4 L (14.0-18.0) g/dl Hct 25.7 L D 25.0 L (42-52) % Plt Count 230 193 (160-400) X10*3/uL BMP 01/31/21 01/31/21 00:47 07:22 Sodium 131 L 134 L Potassium 4.8 4.5 Chloride 93 L 97 Carbon Dioxide 30 H 32 H BUN 14 11 Creatinine 1.36 1.19 Calcium 8.8 8.6 Liver Function 01/31/21 01/31/21 Range/Units 00:47 07:22 Total Bilirubin 0.5 0.5 (0.0-1.0) mg/dL Direct Bilirubin 0.2 0.2 (0.0-0.5) mg/dL AST 13 D 11 (5-37) U/L ALT 8 6 (0-40) U/L Alkaline Phosphatase 135 H 125 H (39-117) U/L Albumin 3.3 L D 2.9 L (3.5-5.0) g/dL All other labs normal. Procedures Date of Service Date of Service: 01/31/21 Abscess I/D Consent for Procedure: Elective - informed consent obtained Site: foot (left plantar foot) Sedation/analgesia: none Technique: incised with #11 blade Irrigation: Yes (saline and betadine) Packing used?: plain (gauze with betadine saline) Additional comments: area cleaned with betadine and with neuropathy opened up with 11 blade and irrigated til no more purulent dressing. packed with betadine saline gauze and pressure dressing . complex I&D
[2021-01-31] MEDS: 0.9 % Sodium Chloride 1,000 ML 80 ML IVCONT (13:40)
[2021-01-31] MEDS: Clindamycin Phosphate/D5W 600 MG/50 ML PIGGYBACK 100 MG IV ×2 (13:40→22:39)
[2021-01-31 15:13] VITALS: BP 136/77; PULSE 86; RESP 20; TEMP 37; O2SAT 99
[2021-01-31 16:04] LABS: Glucose, Whole Blood 228 mg/dL (60-115)
--- NOTE | 2021-01-31 16:25 | P.EN_ITS ---
Event Note Date of Service: 01/31/21 Event Note: 35-year-old male with a past medical history of diabetes, polys ubstance abuse, opiate dependence on methadone, diabetic neuropathy, history of bilateral toe amputation, history of osteomyelitis presented to the hospital with a chief complaint of left heel ulcer with pain and discharge for 2 weeks; noted to have osteomyelitis. Patient denies any significant pain, foot is seen has to lateral ulcers but no discharge. Physical exam: Cvs: rrr, [id number] , no murmur res: clear to auscultation ,no rhonchii or wheezing abd: no rebound or guarding ,nt, bs present. ext pulses present , no cyanosis ,left heel open ulcers noted with surrounding erythema and scant per see discharge neuro: axo3 , nonfocal. Assessment and plan coordinated in H&P note Foot osteo Continue Vanco and Zosyn Surgery dr culver-planning in I&D.-if does not improve may need further rosaline gen
[2021-01-31 19:13] VITALS: BP 151/87; PULSE 72; RESP 20; TEMP 36.9; O2SAT 97
[2021-01-31 19:52] LABS: Glucose, Whole Blood 401 mg/dL (60-115)
[2021-01-31] MEDS: Insulin Glargine,Hum.rec.anlog 100 UNIT/ML 10 ML VIAL 10 UNIT SUBCUT (20:05)
[2021-01-31 23:41] VITALS: BP 138/80; PULSE 79; RESP 12; TEMP 36.8; O2SAT 97
[2021-02-01] VITALS (7 sets, daily range): BP systolic 125–152; BP diastolic 70–88; PULSE 63–87; RESP 12–21; TEMP 36.4–37.3; O2SAT 96–98
[2021-02-01] MEDS: Piperacillin Sodium/Tazobactam 3.375 GM in 0.9 % Sodium Chloride 50 ML IV ×4 (00:52→18:45)
[2021-02-01] MEDS: vancomycin HCL 1,000 MG in 0.9 % Sodium Chloride 250 ML 270 MG IV ×2 (01:31→14:05)
[2021-02-01] MEDS: Heparin Sodium,Porcine 5,000 UNIT/ML VIAL 5000 UNIT SUBCUT ×3 (03:15→20:50)
[2021-02-01] MEDS: 0.9 % Sodium Chloride 1,000 ML 80 ML IVCONT ×2 (03:15→18:39)
[2021-02-01] MEDS: Clindamycin Phosphate/D5W 600 MG/50 ML PIGGYBACK 100 MG IV ×3 (05:31→20:50)
[2021-02-01 07:03] LABS: Hematocrit 25.4 % (42-52); Hemoglobin 8.5 g/dl (14.0-18.0); Mean Corpuscular HGB Conc 33.5 g/dl (31.0-36.0); Mean Corpuscular Hemoglobin 28.5 pg (27.0-33.0); Mean Corpuscular Volume 85.2 fL (80-98); Mean Platelet Volume 10.2 fL (9.4-12.4); Platelet Count 224 X10*3/uL (160-400); Red Blood Count 2.98 X10*6/uL (4.60-5.80); Red Cell Distribution Width 13.9 % (11.0-16.0); White Blood Count 6.4 X10*3/uL (4.8-10.8)
[2021-02-01 07:09] LABS: Glucose, Whole Blood 383 mg/dL (60-115)
[2021-02-01 07:29] LABS: Anion Gap 13 (12-20); Blood Urea Nitrogen 8 mg/dL (9-16); Calcium 8.5 mg/dL (8.4-10.2); Carbon Dioxide 31 mmol/L (22-29); Chloride 98 mmol/L (96-108); Creatinine Clr Calc Pharmacy 93.6; Estimated Glomerular Filt Rate > 60; Glucose Random 340 mg/dL (60-115); Potassium 4.7 mmol/L (3.3-5.1); Sodium 137 mmol/L (135-145)
[2021-02-01] MEDS: Gabapentin 600 MG TABLET PO ×4 (08:24→20:50)
[2021-02-01] MEDS: Insulin Lispro 100 UNIT/ML 3 ML VIAL SUBCUT ×4 (08:24→20:49)
[2021-02-01] MEDS: metFORMIN HCl 1,000 MG TABLET 1000 MG PO ×2 (08:24→17:04)
[2021-02-01 11:16] LABS: Glucose, Whole Blood 326 mg/dL (60-115)
--- NOTE | 2021-02-01 11:23 | PC.NURSE ---
01/31/21 @ 1820 Heparin removed from Pyxis but not given to patient because spilled. This RN did not admin b/c shift change/had to give report. Oncoming shift RN did not admin also to patient during their time (was due @1900). Nursing carton and can supply supervisor made aware.
--- NOTE | 2021-02-01 11:48 | P.PNIM_ITS ---
Subjective Subjective Date of Service: 02/01/21 Interval History: F/u osteomylitis of the fooot, diabetic foot ulcer Review of Systems Gen: no fever Resp: no sob, no cough CV: no chest, no MAHAN, no leg edema GI: No n/v, no abd pain Neuro: No confusion Pain in the foot Physical Exam Vital Signs: Vital Signs: Last Vital Signs Temp 97.6 F 02/01/21 11:33 Pulse 79 02/01/21 11:33 Resp 18 02/01/21 11:33 BP 125/76 02/01/21 11:33 Pulse Ox 96 02/01/21 11:33 Body Mass Index 25.2 Physical exam: Cvs: rrr, [id number] , no murmur res: clear to auscultation ,no rhonchii or wheezing abd: no rebound or guarding ,nt, bs present. ext pulses present , no cyanosis ,left heel open ulcers noted with surrounding erythema and scant per see discharge neuro: axo3 , nonfocal. Objective Data Current Medications Generic Name Dose Route Start Last Admin Trade Name Raysa PRN Reason Stop Dose Admin Acetaminophen 650 mg 01/31/21 02:49 Acetaminophen 325 Mg Tablet PO Q6H PRN Pain, Mild (Pain Scale 1-3) Gabapentin 600 mg 01/31/21 09:00 02/01/21 08:24 Gabapentin 600 Mg Tablet PO 600 mg QID DAYNA Administration Heparin Sodium (Porcine) 5,000 unit 01/31/21 03:00 02/01/21 04:16 Heparin Sodium,Porcine 5,000 Unit/Ml Vial SUBCUT Not Given Q8H DAYNA Piperacillin Sod/Tazobactam 50 mls @ 100 mls/hr 01/31/21 06:00 02/01/21 06:51 Sod 3.375 gm/ Sodium Chloride IV Infused Q6H DAYNA Infusion Vancomycin HCl 1,000 mg/ 270 mls @ 270 mls/hr 01/31/21 13:00 02/01/21 03:06 Sodium Chloride IV Infused Q12H DAYNA Infusion Sodium Chloride 1,000 mls @ 80 mls/hr 01/31/21 12:00 02/01/21 03:15 Ns IVCONT 80 mls/hr .[id number] DAYNA Administration Clindamycin Phosphate 600 mg in 50 mls @ 100 mls/hr 01/31/21 14:00 02/01/21 06:11 Cleocin IV Infused Q8H DAYNA Infusion Insulin Glargine 10 unit 01/31/21 21:00 01/31/21 20:05 Insulin Glargine,Hum.Rec.Anlog 100 Unit/Ml 10 Ml Vial SUBCUT 10 unit BEDTIME DANYA Administration Insulin Human Lispro 0 unit 01/31/21 07:30 02/01/21 08:24 Insulin Lispro 100 Unit/Ml 3 Ml Vial SUBCUT 10 unit QIDACHS [facility] Administration Protocol Magnesium Hydroxide 30 ml 01/31/21 02:49 Milk Of Magnesia 30 Ml Oral.Susp PO DAILY PRN Constipation Melatonin 6 mg 01/31/21 02:49 Melatonin 3 Mg Tablet PO BEDTIME PRN Insomnia Metformin HCl 1,000 mg 01/31/21 17:00 02/01/21 08:24 Metformin Hcl 1,000 Mg Tablet PO 1,000 mg BIDWM DAYNA Administration Methadone HCl 70 mg 01/31/21 12:00 02/01/21 08:24 Methadone Hcl 1 Mg/0.1 Ml Oral.Conc PO 70 mg DAILY DAYNA Administration Oxycodone HCl 5 mg 01/31/21 02:49 01/31/21 17:00 Oxycodone Hcl Immed Release 5 Mg Tablet PO 5 mg Q6H PRN Administration Pain, Severe (Pain Scale 7-10) Pharmacy Consult 1 each 01/31/21 00:09 Consult Rx Vancomycin Dosing MISCELLANE DAILY PRN Consult order Pharmacy Consult 1 each 01/31/21 02:47 Consult Rx Vancomycin Dosing MISCELLANE DAILY PRN Consult order Sodium Chloride 3 ml 01/31/21 08:00 02/01/21 07:48 0.9 % Sodium Chloride Flush 3 Ml Syringe IVFLUSH Not Given QSHIFT [facility] Labs CBC & Chem 7: 02/01/21 05:38 02/01/21 05:38 Labs: Laboratory Results - last 24 hr 01/31/21 01/31/21 01/31/21 07:22 16:00 19:48 WBC RBC Hgb Hct MCV MCH MCHC RDW Plt Count MPV Absolute Nucleated RBC Nucleated RBC % (auto) Sodium Potassium Chloride Carbon Dioxide Anion Gap BUN Creatinine Estim Creat Clear Calc Estimated GFR POC Glucose 228 H 401 H* Random Glucose Calcium Iron 30 L TIBC 199 L % Saturation 15 Ferritin 276 H 0702/01/21 02/01/21 05:38 05:38 06:59 WBC 6.4 RBC 2.98 L Hgb 8.5 L Hct 25.4 L MCV 85.2 MCH 28.5 MCHC 33.5 RDW 13.9 Plt Count 224 MPV 10.2 Absolute Nucleated RBC 0.000 Nucleated RBC % (auto) 0.0 Sodium 137 Potassium 4.7 Chloride 98 Carbon Dioxide 31 H Anion Gap 13 BUN 8 L Creatinine 1.15 Estim Creat Clear Calc 93.6 Estimated GFR > 60 POC Glucose 383 H* Random Glucose 340 H Calcium 8.5 Iron TIBC % Saturation Ferritin 02/01/21 11:06 WBC RBC Hgb Hct MCV MCH MCHC RDW Plt Count MPV Absolute Nucleated RBC Nucleated RBC % (auto) Sodium Potassium Chloride Carbon Dioxide Anion Gap BUN Creatinine Estim Creat Clear Calc Estimated GFR POC Glucose 326 H Random Glucose Calcium Iron TIBC % Saturation Ferritin Microbiology Microbiology Results: Microbiology 01/31/21 00:46 Blood Culture - Preliminary Blood - Venous No growth after 24 hours. 01/31/21 00:47 Blood Culture - Preliminary Blood - Venous No growth after 24 hours. Quality Stroke Does the patient have a stroke diagnosis?: No VTE Prior VTE?: No VTE Risk Level:: Medical - moderate - high VTE Device Contraindication: Treatment Not Indicated VTE Drug Contraindication: N/A - Med Ordered Assessment and Plan (1) Foot osteomyelitis, left: Status: Acute (2) Diabetic infection of left foot: Status: Acute Assessment and Plan: 35-year-old male with a past medical history of diabetes, polysubstance abuse, opiate dependence on methadone, diabetic neuropathy, history of bilateral toe amputation, history of osteomyelitis presented to the hospital with a chief complaint of left heel ulcer with pain and discharge for 2 weeks; noted to have osteomyelitis.. Diabetic foot ulcer/Osteomylitis -Vanco and Zosyn -ID consult Surgery dr culver-planning in I&D.-if does not improve may need further surgery Diabetes--Insulin, Metformin Opioid dependence--methadone heparin for DVT prophylaxix
[2021-02-01] MEDS: oxyCODONE HCl Immed Release 5 MG TABLET PO ×2 (14:07→20:54)
--- NOTE | 2021-02-01 14:33 | PM.PNGS ---
Progress Note: A&P Assessment and plan (1) Diabetic infection of left foot: Status: Acute Assessment and Plan: pt with abscess drained at bedside - doing ok, needs to have irrigation and dressing changes at least bid - at this point no need to go to OR for debridement. needs ID consult for consideration of treatment for osteo of the heel- pt with hx of iv drug abuse making picc line outpt treatment worrisome on discharge pt can be followed again with wound care service no vascular issues involved with this foot at this time. pt and girlfriend understand and agree with the plan Fall Risk Details Current Medications: Current Medications Generic Name Dose Route Start Last Admin Trade Name Freq PRN Reason Stop Dose Admin Acetaminophen 650 mg 01/31/21 02:49 Acetaminophen 325 Mg Tablet PO Q6H PRN Pain, Mild (Pain Scale 1-3) Gabapentin 600 mg 01/31/21 09:00 02/01/21 14:05 Gabapentin 600 Mg Tablet PO 600 mg QID DAYNA Administration Heparin Sodium (Porcine) 5,000 unit 01/31/21 03:00 02/01/21 12:02 Heparin Sodium,Porcine 5,000 Unit/Ml Vial SUBCUT 5,000 unit Q8H DAYNA Administration Piperacillin Sod/Tazobactam 50 mls @ 100 mls/hr 01/31/21 06:00 02/01/21 12:36 Sod 3.375 gm/ Sodium Chloride IV Infused Q6H DAYNA Infusion Vancomycin HCl 1,000 mg/ 270 mls @ 270 mls/hr 01/31/21 13:00 02/01/21 14:05 Sodium Chloride IV 270 mls/hr Q12H DAYNA Administration Sodium Chloride 1,000 mls @ 80 mls/hr 01/31/21 12:00 02/01/21 03:15 Ns IVCONT 80 mls/hr .[id number] DAYNA Administration Clindamycin Phosphate 600 mg in 50 mls @ 100 mls/hr 01/31/21 14:00 02/01/21 06:11 Cleocin IV Infused Q8H DAYNA Infusion Insulin Glargine 10 unit 01/31/21 21:00 01/31/21 20:05 Insulin Glargine,Hum.Rec.Anlog 100 Unit/Ml 10 Ml Vial SUBCUT 10 unit BEDTIME DAYNA Administration Insulin Human Lispro 0 unit 01/31/21 07:30 02/01/21 12:01 Insulin Lispro 100 Unit/Ml 3 Ml Vial SUBCUT 8 unit QIDACHS DAYNA Administration Protocol Magnesium Hydroxide 30 ml 01/31/21 02:49 Milk Of Magnesia 30 Ml Oral.Susp PO DAILY PRN Constipation Melatonin 6 mg 01/31/21 02:49 Melatonin 3 Mg Tablet PO BEDTIME PRN Insomnia Metformin HCl 1,000 mg 01/31/21 17:00 02/01/21 08:24 Metformin Hcl 1,000 Mg Tablet PO 1,000 mg BIDWM DAYNA Administration Methadone HCl 70 mg 01/31/21 12:00 02/01/21 08:24 Methadone Hcl 1 Mg/0.1 Ml Oral.Conc PO 70 mg DAILY DAYNA Administration Oxycodone HCl 5 mg 01/31/21 02:49 02/01/21 14:07 Oxycodone Hcl Immed Release 5 Mg Tablet PO 5 mg Q6H PRN Administration Pain, Severe (Pain Scale 7-10) Pharmacy Consult 1 each 01/31/21 00:09 Consult Rx Vancomycin Dosing MISCELLANE DAILY PRN Consult order Pharmacy Consult 1 each 01/31/21 02:47 Consult Rx Vancomycin Dosing MISCELLANE DAILY PRN Consult order Sodium Chloride 3 ml 01/31/21 08:00 02/01/21 07:48 0.9 % Sodium Chloride Flush 3 Ml Syringe IVFLUSH Not Given QSHIFT [facility] Time Spent With Patient Time: Total time spent is greater than 50% in coordination of care (as documented) at patient's floor/unit and/or counseling patient: Time with patient: 25 - 35 minutes Subjective Subjective Date of Service: 02/01/21 Interval history: pt feels ok, no new changes, did well with dressing changes yesterday and today Physical Exam Vital Signs: Vital Signs: Last Vital Signs Temp 97.6 F 02/01/21 11:33 Pulse 79 02/01/21 11:33 Resp 18 02/01/21 11:33 BP 125/76 02/01/21 11:33 Pulse Ox 96 02/01/21 11:33 Body Mass Index 25.2 Skin: Other: plantar wound looks better, there was some residual purulent material but with irrigation it all cleared out with my dressing change. finger inspection in wound does not reveal any undrained areas, no cellulitis of the foot. Procedures Date of Service Date of Service: 02/01/21 Quality Stroke Does the patient have a stroke diagnosis?: No VTE Prior VTE?: No VTE Risk Level:: Medical - moderate - high VTE Device Contraindication: Treatment Not Indicated VTE Drug Contraindication: N/A - Med Ordered
[2021-02-01 16:35] LABS: Glucose, Whole Blood 370 mg/dL (60-115)
[2021-02-01 19:49] LABS: Glucose, Whole Blood 267 mg/dL (60-115)
[2021-02-01] MEDS: Insulin Glargine,Hum.rec.anlog 100 UNIT/ML 10 ML VIAL 10 UNIT SUBCUT (20:49)
[2021-02-02] MEDS: Piperacillin Sodium/Tazobactam 3.375 GM in 0.9 % Sodium Chloride 50 ML IV ×5 (00:10→23:07)
[2021-02-02 00:57] LABS: Vancomycin Trough 9.8 mcg/mL (10.0-20.0)
--- NOTE | 2021-02-02 01:23 | PC.NURSE ---
pt vanco trough returned at 9.8. pharmacy contacted. instructed to give scheduled dose, and redraw before 4th dose.
[2021-02-02] MEDS: Heparin Sodium,Porcine 5,000 UNIT/ML VIAL 5000 UNIT SUBCUT ×3 (02:54→17:36)
[2021-02-02] MEDS: vancomycin HCL 1,000 MG in 0.9 % Sodium Chloride 250 ML 270 MG IV (02:55)
[2021-02-02 03:08] VITALS: BP 150/76; PULSE 76; RESP 18; TEMP 37
[2021-02-02 04:26] LABS: Folate > 20.0 ng/mL (> or = 4.0); Vitamin B12 401 pg/mL (200-900)
[2021-02-02] MEDS: Clindamycin Phosphate/D5W 600 MG/50 ML PIGGYBACK 100 MG IV ×3 (06:18→20:34)
[2021-02-02 06:55] VITALS: BP 153/88; PULSE 74; RESP 18; TEMP 36.6; O2SAT 93
[2021-02-02 07:13] LABS: Glucose, Whole Blood 291 mg/dL (60-115)
--- NOTE | 2021-02-02 08:12 | PM.PNGS ---
Progress Note: A&P Assessment and plan (1) Foot abscess, left: Status: Acute Assessment and Plan: Status post I and D I removed the packing Dressings reapplied IV antibiotics ID follow-up Wound care Will follow Fall Risk Details Current Medications: Current Medications Generic Name Dose Route Start Last Admin Trade Name Freq PRN Reason Stop Dose Admin Acetaminophen 650 mg 01/31/21 02:49 Acetaminophen 325 Mg Tablet PO Q6H PRN Pain, Mild (Pain Scale 1-3) Gabapentin 600 mg 01/31/21 09:00 02/01/21 20:50 Gabapentin 600 Mg Tablet PO 600 mg QID DAYNA Administration Heparin Sodium (Porcine) 5,000 unit 01/31/21 03:00 02/02/21 02:54 Heparin Sodium,Porcine 5,000 Unit/Ml Vial SUBCUT 5,000 unit Q8H DAYNA Administration Piperacillin Sod/Tazobactam 50 mls @ 100 mls/hr 01/31/21 06:00 02/02/21 06:50 Sod 3.375 gm/ Sodium Chloride IV 100 mls/hr Q6H DAYNA Administration Vancomycin HCl 1,000 mg/ 270 mls @ 270 mls/hr 01/31/21 13:00 02/02/21 03:56 Sodium Chloride IV Infused Q12H DAYNA Infusion Sodium Chloride 1,000 mls @ 80 mls/hr 01/31/21 12:00 02/02/21 02:55 Ns IVCONT Not Given .[id number] DAYNA Clindamycin Phosphate 600 mg in 50 mls @ 100 mls/hr 01/31/21 14:00 02/02/21 06:48 Cleocin IV Infused Q8H DAYNA Infusion Insulin Glargine 10 unit 01/31/21 21:00 02/01/21 20:49 Insulin Glargine,Hum.Rec.Anlog 100 Unit/Ml 10 Ml Vial SUBCUT 10 unit BEDTIME DAYNA Administration Insulin Human Lispro 0 unit 01/31/21 07:30 02/01/21 20:49 Insulin Lispro 100 Unit/Ml 3 Ml Vial SUBCUT 6 unit QIDACHS DAYNA Administration Protocol Magnesium Hydroxide 30 ml 01/31/21 02:49 Milk Of Magnesia 30 Ml Oral.Susp PO DAILY PRN Constipation Melatonin 6 mg 01/31/21 02:49 Melatonin 3 Mg Tablet PO BEDTIME PRN Insomnia Metformin HCl 1,000 mg 01/31/21 17:00 02/01/21 17:04 Metformin Hcl 1,000 Mg Tablet PO 1,000 mg BIDWM DAYNA Administration Methadone HCl 70 mg 01/31/21 12:00 02/01/21 08:24 Methadone Hcl 1 Mg/0.1 Ml Oral.Conc PO 70 mg DAILY DAYNA Administration Oxycodone HCl 5 mg 01/31/21 02:49 02/01/21 20:54 Oxycodone Hcl Immed Release 5 Mg Tablet PO 5 mg Q6H PRN Administration Pain, Severe (Pain Scale 7-10) Pharmacy Consult 1 each 01/31/21 00:09 Consult Rx Vancomycin Dosing MISCELLANE DAILY PRN Consult order Pharmacy Consult 1 each 01/31/21 02:47 Consult Rx Vancomycin Dosing MISCELLANE DAILY PRN Consult order Sodium Chloride 3 ml 01/31/21 08:00 02/02/21 01:14 0.9 % Sodium Chloride Flush 3 Ml Syringe IVFLUSH Not Given QSHIFT DAYNA Time Spent With Patient Time: Total time spent is greater than 50% in coordination of care (as documented) at patient's floor/unit and/or counseling patient: Time with patient: 15 - 24 minutes Subjective Subjective Date of Service: 02/02/21 Interval history: No new complaints Comfortable No events reported Physical Exam Vital Signs: Vital Signs: Last Vital Signs Temp 98 F 02/02/21 06:55 Pulse 74 02/02/21 06:55 Resp 18 02/02/21 06:55 BP 153/88 H 02/02/21 06:55 Pulse Ox 93 02/02/21 06:55 Body Mass Index 25.2 Const: General: comfortable and no acute distress Resp: Effort & Inspection: normal respiratory effort Cardio: Rate: regular rate Extrem: Other: left foot transmetatarsal amputation stump - I and D site with packing, no residual fluctuance, no status, mild induration Procedures Date of Service Date of Service: 02/02/21 Quality Stroke Does the patient have a stroke diagnosis?: No VTE Prior VTE?: No VTE Risk Level:: Medical - moderate - high VTE Device Contraindication: Treatment Not Indicated VTE Drug Contraindication: N/A - Med Ordered
[2021-02-02] MEDS: Gabapentin 600 MG TABLET PO ×4 (08:26→20:33)
[2021-02-02] MEDS: metFORMIN HCl 1,000 MG TABLET 1000 MG PO ×2 (08:26→17:36)
[2021-02-02] MEDS: 0.9 % Sodium Chloride Flush 3 ML SYRINGE IVFLUSH ×2 (08:26→20:34)
[2021-02-02] MEDS: Insulin Lispro 100 UNIT/ML 3 ML VIAL SUBCUT ×5 (08:26→20:33)
[2021-02-02 10:59] VITALS: BP 138/80; PULSE 76; RESP 18; TEMP 36.1; O2SAT 97
[2021-02-02 11:16] LABS: Glucose, Whole Blood 312 mg/dL (60-115)
[2021-02-02] MEDS: 0.9 % Sodium Chloride 1,000 ML 80 ML IVCONT (12:04)
[2021-02-02] MEDS: vancomycin HCL 1,250 MG in 0.9 % Sodium Chloride 250 ML 166.67 MG IV (13:04)
--- NOTE | 2021-02-02 13:15 | P.PNIM_ITS ---
Subjective Subjective Date of Service: 02/03/21 Interval History: F/u osteomylitis of the fooot, diabetic foot ulcer Review of Systems Gen: no fever Resp: no sob, no cough CV: no chest, no MAHAN, no leg edema GI: No n/v, no abd pain Neuro: No confusion Pain in the foot Physical Exam Vital Signs: Vital Signs: Last Vital Signs Temp 97 F 02/02/21 10:59 Pulse 76 02/02/21 10:59 Resp 18 02/02/21 10:59 BP 138/80 02/02/21 10:59 Pulse Ox 97 02/02/21 10:59 Body Mass Index 25.2 Const: General: comfortable and no acute distress Resp: Effort & Inspection: normal respiratory effort Cardio: Rate: regular rate Skin: Other: plantar wound looks better, there was some residual purulent material but with irrigation it all cleared out with my dressing change. finger inspection in wound does not reveal any undrained areas, no cellulitis of the foot. Extrem: Other: left foot transmetatarsal amputation stump - I and D site with packing, no residual fluctuance, no status, mild induration Objective Data Current Medications Generic Name Dose Route Start Last Admin Trade Name Freq PRN Reason Stop Dose Admin Acetaminophen 650 mg 01/31/21 02:49 Acetaminophen 325 Mg Tablet PO Q6H PRN Pain, Mild (Pain Scale 1-3) Gabapentin 600 mg 01/31/21 09:00 02/02/21 12:12 Gabapentin 600 Mg Tablet PO 600 mg QID DAYNA Administration Heparin Sodium (Porcine) 5,000 unit 01/31/21 03:00 02/02/21 12:05 Heparin Sodium,Porcine 5,000 Unit/Ml Vial SUBCUT 5,000 unit Q8H DAYNA Administration Piperacillin Sod/Tazobactam 50 mls @ 100 mls/hr 01/31/21 06:00 02/02/21 13:08 Sod 3.375 gm/ Sodium Chloride IV Infused Q6H DAYNA Infusion Sodium Chloride 1,000 mls @ 80 mls/hr 01/31/21 12:00 02/02/21 12:04 Ns IVCONT 80 mls/hr .[id number] DAYNA Administration Clindamycin Phosphate 600 mg in 50 mls @ 100 mls/hr 01/31/21 14:00 02/02/21 06:48 Cleocin IV Infused Q8H DAYNA Infusion Vancomycin HCl 1,250 mg/ 250 mls @ 166.667 mls/hr 02/02/21 13:00 02/02/21 13:04 Sodium Chloride IV 166.67 mls/hr Q12H DAYNA Administration Insulin Glargine 10 unit 01/31/21 21:00 02/01/21 20:49 Insulin Glargine,Hum.Rec.Anlog 100 Unit/Ml 10 Ml Vial SUBCUT 10 unit BEDTIME DAYNA Administration Insulin Human Lispro 0 unit 01/31/21 07:30 02/02/21 12:05 Insulin Lispro 100 Unit/Ml 3 Ml Vial SUBCUT 8 unit QIDACHS [facility] Administration Protocol Insulin Human Lispro 5 unit 02/02/21 16:30 Insulin Lispro 100 Unit/Ml 3 Ml Vial SUBCUT TIDAC [facility] Magnesium Hydroxide 30 ml 01/31/21 02:49 Milk Of Magnesia 30 Ml Oral.Susp PO DAILY PRN Constipation Melatonin 6 mg 01/31/21 02:49 Melatonin 3 Mg Tablet PO BEDTIME PRN Insomnia Metformin HCl 1,000 mg 01/31/21 17:00 02/02/21 08:26 Metformin Hcl 1,000 Mg Tablet PO 1,000 mg BIDWM DAYNA Administration Methadone HCl 70 mg 01/31/21 12:00 02/02/21 08:26 Methadone Hcl 1 Mg/0.1 Ml Oral.Conc PO 70 mg DAILY DAYNA Administration Oxycodone HCl 5 mg 01/31/21 02:49 02/01/21 20:54 Oxycodone Hcl Immed Release 5 Mg Tablet PO 5 mg Q6H PRN Administration Pain, Severe (Pain Scale 7-10) Pharmacy Consult 1 each 01/31/21 00:09 Consult Rx Vancomycin Dosing MISCELLANE DAILY PRN Consult order Pharmacy Consult 1 each 01/31/21 02:47 Consult Rx Vancomycin Dosing MISCELLANE DAILY PRN Consult order Sodium Chloride 3 ml 01/31/21 08:00 02/02/21 08:26 0.9 % Sodium Chloride Flush 3 Ml Syringe IVFLUSH 3 ml QSHIFT [facility] Administration Labs CBC & Chem 7: 02/01/21 05:38 02/02/21 14:40 Labs: Laboratory Results - last 24 hr 01/31/21 02/01/21 02/01/21 07:22 16:32 19:44 POC Glucose 370 H* 267 H Vitamin B12 401 Folate > 20.0 Vancomycin Trough 02/02/21 02/02/21 02/02/21 00:19 06:57 10:59 POC Glucose 291 H 312 H Vitamin B12 Folate Vancomycin Trough 9.8 L Microbiology Microbiology Results: Microbiology 01/31/21 00:46 Blood Culture - Preliminary Blood - Venous No growth after 48 hours. 01/31/21 00:47 Blood Culture - Preliminary Blood - Venous No growth after 48 hours. Assessment and Plan (1) Foot osteomyelitis, left: Status: Acute (2) Diabetic infection of left foot: Status: Acute Assessment and Plan: 35-year-old male with a past medical history of diabetes, polysubstance abuse, opiate dependence on methadone, diabetic neuropathy, history of bilateral toe amputation, history of osteomyelitis presented to the hospital with a chief complaint of left heel ulcer with pain and discharge for 2 weeks; noted to have osteomyelitis.. Diabetic foot ulcer/Osteomylitis -s/p debridment by surgery - continue Vanco and Zosyn -ID consult S Diabetes--Insulin, Metformin, add pre meal insulin as not controlled Opioid dependence--methadone heparin for DVT prophylaxix He will likely need skilled nursing antibiotics Quality Stroke Does the patient have a stroke diagnosis?: No VTE Prior VTE?: No VTE Risk Level:: Medical - moderate - high VTE Device Contraindication: Treatment Not Indicated VTE Drug Contraindication: N/A - Med Ordered
--- NOTE | 2021-02-02 14:08 | MHC.CM.PN ---
Male 35 DX L heel ulcer Osteomyelitis DP is to SNF for LT ABX. [facility] following. UPdated info sent. Transportation via S. CM will follow.
[2021-02-02 15:19] VITALS: BP 141/87; PULSE 77; RESP 20; TEMP 36.5; O2SAT 98
[2021-02-02 15:29] LABS: Anion Gap 13 (12-20); Blood Urea Nitrogen 9 mg/dL (9-16); Calcium 9.3 mg/dL (8.4-10.2); Carbon Dioxide 32 mmol/L (22-29); Chloride 99 mmol/L (96-108); Creatinine Clr Calc Pharmacy 93.6; Estimated Glomerular Filt Rate > 60; Glucose Random 175 mg/dL (60-115); Potassium 4.8 mmol/L (3.3-5.1); Sodium 139 mmol/L (135-145)
[2021-02-02 16:06] LABS: Glucose, Whole Blood 184 mg/dL (60-115)
[2021-02-02] MEDS: oxyCODONE HCl Immed Release 5 MG TABLET PO (17:35)
[2021-02-02 19:32] VITALS: BP 166/95; PULSE 75; RESP 20; TEMP 36.6; O2SAT 98
[2021-02-02 20:00] LABS: Glucose, Whole Blood 299 mg/dL (60-115)
[2021-02-02] MEDS: Insulin Glargine,Hum.rec.anlog 100 UNIT/ML 10 ML VIAL 10 UNIT SUBCUT (20:33)
[2021-02-02 23:58] VITALS: BP 138/76; RESP 18; TEMP 37; O2SAT 98
[2021-02-03] MEDS: vancomycin HCL 1,250 MG in 0.9 % Sodium Chloride 250 ML 166.67 MG IV ×2 (00:51→14:06)
[2021-02-03 03:24] VITALS: BP 149/76; PULSE 75; RESP 20; TEMP 36.8; O2SAT 97
[2021-02-03] MEDS: Heparin Sodium,Porcine 5,000 UNIT/ML VIAL 5000 UNIT SUBCUT ×3 (03:25→17:37)
[2021-02-03] MEDS: 0.9 % Sodium Chloride 1,000 ML 80 ML IVCONT (03:26)
[2021-02-03] MEDS: Clindamycin Phosphate/D5W 600 MG/50 ML PIGGYBACK 100 MG IV ×3 (05:26→22:23)
[2021-02-03] MEDS: Piperacillin Sodium/Tazobactam 3.375 GM in 0.9 % Sodium Chloride 50 ML IV ×4 (06:00→23:00)
[2021-02-03 07:05] VITALS: BP 157/84; PULSE 71; RESP 18; TEMP 36.3; O2SAT 98
[2021-02-03 07:41] LABS: Glucose, Whole Blood 363 mg/dL (60-115)
[2021-02-03] MEDS: Insulin Lispro 100 UNIT/ML 3 ML VIAL SUBCUT ×5 (08:03→22:23)
[2021-02-03] MEDS: Gabapentin 600 MG TABLET PO ×4 (08:03→22:22)
[2021-02-03] MEDS: metFORMIN HCl 1,000 MG TABLET 1000 MG PO ×2 (08:03→16:08)
[2021-02-03 10:54] VITALS: BP 139/78; PULSE 72; RESP 18; TEMP 36.5; O2SAT 98
[2021-02-03 11:30] LABS: Glucose, Whole Blood 316 mg/dL (60-115)
--- NOTE | 2021-02-03 12:14 | P.PNGS_ITS ---
Subjective Subjective Date of Service: 02/03/21 Interval history: says he is comfortable denies pain no fever Physical Exam Vital Signs: Vital Signs: Last Vital Signs Temp 97.7 F 02/03/21 10:54 Pulse 72 02/03/21 10:54 Resp 18 02/03/21 10:54 BP 139/78 02/03/21 10:54 Pulse Ox 98 02/03/21 10:54 Body Mass Index 25.2 Laboratory Results WBC 6.4 X10*3/uL (4.8 -10.8) 02/01/21 05:38 RBC 2.98 X10*6/uL (4. 60-5.80) L 02/01/21 05:38 Hgb 8.5 g/dl (14.0-18 .0) L 02/01/21 05:38 Hct 25.4 % (42-52) L 02/01/21 05:38 MCV 85.2 fL (80-98) 02/01/21 05:38 MCH 28.5 pg (27.0-33. 0) 02/01/21 05:38 MCHC 33.5 g/dl (31.0-3 6.0) 02/01/21 05:38 RDW 13.9 % (11.0-16.0 ) 02/01/21 05:38 Plt Count 224 X10*3/uL (160 -400) 02/01/21 05:38 MPV 10.2 fL (9.4-12.4 ) 02/01/21 05:38 Immature Gran % (A uto) 0.5 % (0.0-0.4) H 01/31/21 07:22 Neut % (Auto) 69.9 % (45-73) 01/31/21 07:22 Lymph % (Auto) 19.4 % (20-40) L 01/31/21 07:22 [place] % (Auto) 7.8 % (2-11) 01/31/21 07:22 Eos % (Auto) 2.1 % (0-4) 01/31/21 07:22 Baso % (Auto) 0.3 % (0-2) 01/31/21 07:22 Lymph # (Auto) 1.2 X10*3/uL (1.2 -4.9) 01/31/21 07:22 [place] # (Auto) 0.5 X10*3/uL (0.1 -1.2) 01/31/21 07:22 Eos # (Auto) 0.1 X10*3/uL (0.0 -0.4) 01/31/21 07:22 Baso # (Auto) 0.0 X10*3/uL (0.0 -0.2) 01/31/21 07:22 Abs Immat Gran (au to) 0.03 X10*3/uL (0. 00-0.03) 01/31/21 07:22 Absolute Neuts (au to) 4.3 X10*3/uL (2.0 -8.3) 01/31/21 07:22 Absolute Nucleated RBC 0.000 X10*3/uL (0 .0-0.012) 02/01/21 05:38 Nucleated RBC % (a uto) 0.0 /100WBC (0.0- 0.2) 02/01/21 05:38 Sodium 139 mmol/L (135-1 45) 02/02/21 14:40 Potassium 4.8 mmol/L (3.3-5 .1) 02/02/21 14:40 Chloride 99 mmol/L (96-108 ) 02/02/21 14:40 Carbon Dioxide 32 mmol/L (22-29) H 02/02/21 14:40 Anion Gap 13 (12-20) 02/02/21 14:40 BUN 9 mg/dL (9-16) 02/02/21 14:40 Creatinine 1.15 mg/dL (0.5-1 .4) 02/02/21 14:40 Estim Creat Clear Calc 93.6 02/02/21 14:40 Estimated GFR > 60 02/02/21 14:40 POC Glucose 316 mg/dL (60-115 ) H 02/03/21 10:53 Random Glucose 175 mg/dL (60-115 ) H D 02/02/21 14:40 Lactic Acid 1.5 mmol/L (0.5-2 .0) 01/31/21 00:47 Calcium 9.3 mg/dL (8.4-10 .2) D 02/02/21 14:40 Iron 30 mcg/dL (45-160 ) L 01/31/21 07:22 TIBC 199 mcg/dL (228-4 28) L 01/31/21 07:22 % Saturation 15 % (15-50) 01/31/21 07:22 Unsat Iron Binding 169 ug/dL 01/31/21 07:22 Ferritin 276 ng/mL (20-250 ) H 01/31/21 07:22 Total Bilirubin 0.5 mg/dL (0.0-1. 0) 01/31/21 07:22 Direct Bilirubin 0.2 mg/dL (0.0-0. 5) 01/31/21 07:22 AST 11 U/L (5-37) 01/31/21 07:22 ALT 6 U/L (0-40) 01/31/21 07:22 Alkaline Phosphata se 125 U/L (39-117) H 01/31/21 07:22 Total Protein 6.4 g/dL (6.5-8.0 ) L 01/31/21 07:22 Albumin 2.9 g/dL (3.5-5.0 ) L 01/31/21 07:22 Vitamin B12 401 pg/mL (200-90 0) 01/31/21 07:22 Folate > 20.0 ng/mL (> o r = 4.0) 01/31/21 07:22 Vancomycin Trough 9.8 mcg/mL (10.0- 20.0) L 02/02/21 00:19 COVID-19 (MARY KATE) Negative (Negati ve) 01/31/21 02:52 COVID-19 Clin Com See Note 01/31/21 02:[address] 01/31/21 00:09 IMPRESSION: Heterogeneous cortical erosion along the medial aspect of the posterior calcaneus, most suspicious for osteomyelitis. Overlying soft tissue swelling and multiple foci of gas with and surrounding fluid along with associated soft tissue defect. If clinically warranted, extent of osteomyelitis may be better evaluated with MRI. Const: General: healthy appearing, comfortable and no acute distress Resp: Effort & Inspection: normal respiratory effort Cardio: Rate: regular rate Extrem: Other: left foot TMA stump - open wound on plantar aspect, scanty drainage, no cellulitis, no fluctuance Procedures Date of Service Date of Service: 02/03/21 Progress Note: A&P Assessment and plan (1) Foot abscess, left: Status: Acute Assessment and Plan: I have changed his dressings - foot wrapped in Kerlix CT suggests osteomyelitis of the calcaneus IV abx/ID input wound care no weight bearing on left foot for now Fall Risk Details Current Medications: Current Medications Generic Name Dose Route Start Last Admin Trade Name Raysa PRN Reason Stop Dose Admin Acetaminophen 650 mg 01/31/21 02:49 Acetaminophen 325 Mg Tablet PO Q6H PRN Pain, Mild (Pain Scale 1-3) Gabapentin 600 mg 01/31/21 09:00 02/03/21 08:03 Gabapentin 600 Mg Tablet PO 600 mg QID DAYNA Administration Heparin Sodium (Porcine) 5,000 unit 01/31/21 03:00 02/03/21 03:25 Heparin Sodium,Porcine 5,000 Unit/Ml Vial SUBCUT 5,000 unit Q8H DAYNA Administration Piperacillin Sod/Tazobactam 50 mls @ 100 mls/hr 01/31/21 06:00 02/03/21 06:32 Sod 3.375 gm/ Sodium Chloride IV Infused Q6H DAYNA Infusion Clindamycin Phosphate 600 mg in 50 mls @ 100 mls/hr 01/31/21 14:00 02/03/21 06:03 Cleocin IV Infused Q8H DAYNA Infusion Vancomycin HCl 1,250 mg/ 250 mls @ 166.667 mls/hr 02/02/21 13:00 02/03/21 02:24 Sodium Chloride IV Infused Q12H DAYNA Infusion Insulin Glargine 10 unit 01/31/21 21:00 02/02/21 20:33 Insulin Glargine,Hum.Rec.Anlog 100 Unit/Ml 10 Ml Vial SUBCUT 10 unit BEDTIME DAYNA Administration Insulin Human Lispro 0 unit 01/31/21 07:30 02/03/21 08:03 Insulin Lispro 100 Unit/Ml 3 Ml Vial SUBCUT 10 unit QIDACHS DAYNA Administration Protocol Insulin Human Lispro 5 unit 02/02/21 16:30 02/03/21 08:03 Insulin Lispro 100 Unit/Ml 3 Ml Vial SUBCUT 5 unit TIDAC DAYNA Administration Magnesium Hydroxide 30 ml 01/31/21 02:49 Milk Of Magnesia 30 Ml Oral.Susp PO DAILY PRN Constipation Melatonin 6 mg 01/31/21 02:49 Melatonin 3 Mg Tablet PO BEDTIME PRN Insomnia Metformin HCl 1,000 mg 01/31/21 17:00 02/03/21 08:03 Metformin Hcl 1,000 Mg Tablet PO 1,000 mg BIDWM DAYNA Administration Methadone HCl 70 mg 01/31/21 12:00 02/03/21 08:03 Methadone Hcl 1 Mg/0.1 Ml Oral.Conc PO 70 mg DAILY DAYNA Administration Oxycodone HCl 5 mg 01/31/21 02:49 02/02/21 17:35 Oxycodone Hcl Immed Release 5 Mg Tablet PO 5 mg Q6H PRN Administration Pain, Severe (Pain Scale 7-10) Pharmacy Consult 1 each 01/31/21 00:09 Consult Rx Vancomycin Dosing MISCELLANE DAILY PRN Consult order Pharmacy Consult 1 each 01/31/21 02:47 Consult Rx Vancomycin Dosing MISCELLANE DAILY PRN Consult order Sodium Chloride 3 ml 01/31/21 08:00 02/03/21 08:04 0.9 % Sodium Chloride Flush 3 Ml Syringe IVFLUSH Not Given QSHIFT DAYNA Time Spent With Patient Time: Total time spent is greater than 50% in coordination of care (as docu mented) at patient's floor/unit and/or counseling patient: Time with patient: 15 - 24 minutes Quality Stroke Does the patient have a stroke diagnosis?: No VTE Prior VTE?: No VTE Risk Level:: Medical - moderate - high VTE Device Contraindication: Treatment Not Indicated VTE Drug Contraindication: N/A - Med Ordered
--- NOTE | 2021-02-03 12:15 | HO.PM.IMPN ---
Subjective Subjective Date of Service: 02/03/21 Interval History: F/u osteomylitis of the fooot, diabetic foot ulcer, no new issues Review of Systems Gen: no fever Resp: no sob, no cough CV: no chest, no MAHAN, no leg edema GI: No n/v, no abd pain Neuro: No confusion Pain in the foot Physical Exam Vital Signs: Vital Signs: Last Vital Signs Temp 97.7 F 02/03/21 10:54 Pulse 72 02/03/21 10:54 Resp 18 02/03/21 10:54 BP 139/78 02/03/21 10:54 Pulse Ox 98 02/03/21 10:54 Body Mass Index 25.2 Const: General: comfortable and no acute distress Resp: Effort & Inspection: normal respiratory effort Cardio: Rate: regular rate Skin: Other: plantar wound looks better, there was some residual purulent material but with irrigation it all cleared out with my dressing change. finger inspection in wound does not reveal any undrained areas, no cellulitis of the foot. Extrem: Other: left foot transmetatarsal amputation stump - I and D site with packing, no residual fluctuance, no status, mild induration Objective Data Current Medications Generic Name Dose Route Start Last Admin Trade Name Freq PRN Reason Stop Dose Admin Acetaminophen 650 mg 01/31/21 02:49 Acetaminophen 325 Mg Tablet PO Q6H PRN Pain, Mild (Pain Scale 1-3) Gabapentin 600 mg 01/31/21 09:00 02/03/21 08:03 Gabapentin 600 Mg Tablet PO 600 mg QID DAYNA Administration Heparin Sodium (Porcine) 5,000 unit 01/31/21 03:00 02/03/21 03:25 Heparin Sodium,Porcine 5,000 Unit/Ml Vial SUBCUT 5,000 unit Q8H DAYNA Administration Piperacillin Sod/Tazobactam 50 mls @ 100 mls/hr 01/31/21 06:00 02/03/21 06:32 Sod 3.375 gm/ Sodium Chloride IV Infused Q6H DAYNA Infusion Clindamycin Phosphate 600 mg in 50 mls @ 100 mls/hr 01/31/21 14:00 02/03/21 06:03 Cleocin IV Infused Q8H DAYNA Infusion Vancomycin HCl 1,250 mg/ 250 mls @ 166.667 mls/hr 02/02/21 13:00 02/03/21 02:24 Sodium Chloride IV Infused Q12H DAYNA Infusion Insulin Glargine 10 unit 01/31/21 21:00 02/02/21 20:33 Insulin Glargine,Hum.Rec.Anlog 100 Unit/Ml 10 Ml Vial SUBCUT 10 unit BEDTIME DAYNA Administration Insulin Human Lispro 0 unit 01/31/21 07:30 02/03/21 08:03 Insulin Lispro 100 Unit/Ml 3 Ml Vial SUBCUT 10 unit QIDACHS [facility] Administration Protocol Insulin Human Lispro 5 unit 02/02/21 16:30 02/03/21 08:03 Insulin Lispro 100 Unit/Ml 3 Ml Vial SUBCUT 5 unit TIDAC [facility] Administration Magnesium Hydroxide 30 ml 01/31/21 02:49 Milk Of Magnesia 30 Ml Oral.Susp PO DAILY PRN Constipation Melatonin 6 mg 01/31/21 02:49 Melatonin 3 Mg Tablet PO BEDTIME PRN Insomnia Metformin HCl 1,000 mg 01/31/21 17:00 02/03/21 08:03 Metformin Hcl 1,000 Mg Tablet PO 1,000 mg BIDWM [facility] Administration Methadone HCl 70 mg 01/31/21 12:00 02/03/21 08:03 Methadone Hcl 1 Mg/0.1 Ml Oral.Conc PO 70 mg DAILY DAYNA Administration Oxycodone HCl 5 mg 01/31/21 02:49 02/02/21 17:35 Oxycodone Hcl Immed Release 5 Mg Tablet PO 5 mg Q6H PRN Administration Pain, Severe (Pain Scale 7-10) Pharmacy Consult 1 each 01/31/21 00:09 Consult Rx Vancomycin Dosing MISCELLANE DAILY PRN Consult order Pharmacy Consult 1 each 01/31/21 02:47 Consult Rx Vancomycin Dosing MISCELLANE DAILY PRN Consult order Sodium Chloride 3 ml 01/31/21 08:00 02/03/21 08:04 0.9 % Sodium Chloride Flush 3 Ml Syringe IVFLUSH Not Given QSHIFT [facility] Labs CBC & Chem 7: 02/01/21 05:38 02/02/21 14:40 Labs: Laboratory Results - last 24 hr 02/02/21 02/02/21 02/02/21 14:40 16:02 19:57 Sodium 139 Potassium 4.8 Chloride 99 Carbon Dioxide 32 H Anion Gap 13 BUN 9 Creatinine 1.15 Estim Creat Clear Calc 93.6 Estimated GFR > 60 POC Glucose 184 H 299 H Random Glucose 175 H D Calcium 9.3 D 02/03/21 02/03/21 07:04 10:53 Sodium Potassium Chloride Carbon Dioxide Anion Gap BUN Creatinine Estim Creat Clear Calc Estimated GFR POC Glucose 363 H* 316 H Random Glucose Calcium Assessment and Plan (1) Foot osteomyelitis, left: Status: Acute (2) Diabetic infection of left foot: Status: Acute Assessment and Plan: 35-year-old male with a past medical history of diabetes, polysubstance abuse, opiate dependence on methadone, diabetic neuropathy, history of bilateral toe amputation, history of osteomyelitis presented to the hospital with a chief complaint of left heel ulcer with pain and discharge for 2 weeks; noted to have osteomyelitis.. Diabetic foot ulcer/Osteomylitis -s/p debridment by surgery - continue fady Hinds Vanco -ID consult recommends 6 weeks of IVanz -requesting a midline Diabetes--Insulin, Metformin, pre meal insulin, increase Lantus to 20 Opioid dependence--methadone heparin for DVT prophylaxix He will likely need [facility] antibiotics Quality Stroke Does the patient have a stroke diagnosis?: No VTE Prior VTE?: No VTE Risk Level:: Medical - moderate - high VTE Device Contraindication: Treatment Not Indicated VTE Drug Contraindication: N/A - Med Ordered
[2021-02-03 13:30] LABS: Vancomycin Trough 15.7 mcg/mL (10.0-20.0)
[2021-02-03 15:03] VITALS: BP 153/86; PULSE 66; RESP 20; TEMP 36.7; O2SAT 98
[2021-02-03 16:09] LABS: Glucose, Whole Blood 70 mg/dL (60-115)
[2021-02-03] MEDS: oxyCODONE HCl Immed Release 5 MG TABLET PO (17:44)
[2021-02-03 19:07] VITALS: BP 145/76; PULSE 76; RESP 20; TEMP 36.7; O2SAT 97
[2021-02-03 20:02] LABS: Glucose, Whole Blood 256 mg/dL (60-115)
[2021-02-03] MEDS: Insulin Glargine,Hum.rec.anlog 100 UNIT/ML 10 ML VIAL 20 UNIT SUBCUT (22:23)
[2021-02-03] MEDS: 0.9 % Sodium Chloride Flush 3 ML SYRINGE IVFLUSH (22:24)
[2021-02-03 23:06] VITALS: BP 184/100; PULSE 73; RESP 20; TEMP 36.2; O2SAT 97
[2021-02-04] VITALS (7 sets, daily range): BP systolic 119–155; BP diastolic 63–90; PULSE 63–97; RESP 18–20; TEMP 35.9–37.2; O2SAT 94–98
[2021-02-04] MEDS: vancomycin HCL 1,250 MG in 0.9 % Sodium Chloride 250 ML 166.7 MG IV ×2 (02:24→13:05)
[2021-02-04] MEDS: Heparin Sodium,Porcine 5,000 UNIT/ML VIAL 5000 UNIT SUBCUT ×3 (02:25→20:01)
[2021-02-04] MEDS: Piperacillin Sodium/Tazobactam 3.375 GM in 0.9 % Sodium Chloride 50 ML IV ×4 (05:15→23:56)
[2021-02-04] MEDS: Clindamycin Phosphate/D5W 600 MG/50 ML PIGGYBACK 100 MG IV ×3 (06:00→21:54)
[2021-02-04 07:09] LABS: Glucose, Whole Blood 178 mg/dL (60-115)
[2021-02-04] MEDS: Insulin Lispro 100 UNIT/ML 3 ML VIAL SUBCUT ×4 (07:49→11:14)
[2021-02-04] MEDS: metFORMIN HCl 1,000 MG TABLET 1000 MG PO ×2 (07:49→16:47)
[2021-02-04] MEDS: Gabapentin 600 MG TABLET PO ×4 (07:49→20:01)
[2021-02-04] MEDS: 0.9 % Sodium Chloride Flush 3 ML SYRINGE IVFLUSH ×3 (07:51→20:02)
--- NOTE | 2021-02-04 08:42 | P.PNIM_ITS ---
Subjective Subjective Date of Service: 02/04/21 Interval History: F/u osteomylitis of the fooot, diabetic foot ulcer, comfortable Review of Systems Gen: no fever Resp: no sob, no cough CV: no chest, no MAHAN, no leg edema GI: No n/v, no abd pain Neuro: No confusion Pain in the foot Physical Exam Vital Signs: Vital Signs: Last Vital Signs Temp 98.4 F 02/04/21 07:19 Pulse 76 02/04/21 07:19 Resp 19 02/04/21 07:19 BP 144/90 H 02/04/21 07:19 Pulse Ox 97 02/04/21 07:19 Body Mass Index 25.2 Const: General: comfortable and no acute distress Resp: Effort & Inspection: normal respiratory effort Cardio: Rate: regular rate Skin: Other: plantar wound looks better, there was some residual purulent material but with irrigation it all cleared out with my dressing change. finger inspection in wound does not reveal any undrained areas, no cellulitis of the foot. Extrem: Other: left foot transmetatarsal amputation stump - I and D site with packing, no residual fluctuance, no status, mild induration Objective Data Current Medications Generic Name Dose Route Start Last Admin Trade Name Freq PRN Reason Stop Dose Admin Acetaminophen 650 mg 01/31/21 02:49 Acetaminophen 325 Mg Tablet PO Q6H PRN Pain, Mild (Pain Scale 1-3) Gabapentin 600 mg 01/31/21 09:00 02/04/21 07:49 Gabapentin 600 Mg Tablet PO 600 mg QID DAYNA Administration Heparin Sodium (Porcine) 5,000 unit 01/31/21 03:00 02/04/21 02:25 Heparin Sodium,Porcine 5,000 Unit/Ml Vial SUBCUT 5,000 unit Q8H DAYNA Administration Piperacillin Sod/Tazobactam 50 mls @ 100 mls/hr 01/31/21 06:00 02/04/21 05:50 Sod 3.375 gm/ Sodium Chloride IV Infused Q6H DAYNA Infusion Clindamycin Phosphate 600 mg in 50 mls @ 100 mls/hr 01/31/21 14:00 02/04/21 06:35 Cleocin IV Infused Q8H DAYNA Infusion Vancomycin HCl 1,250 mg/ 250 mls @ 166.667 mls/hr 02/02/21 13:00 02/04/21 04:00 Sodium Chloride IV Infused Q12H DAYNA Infusion Insulin Glargine 20 unit 02/03/21 21:00 02/03/21 22:23 Insulin Glargine,Hum.Rec.Anlog 100 Unit/Ml 10 Ml Vial SUBCUT 1 unit BEDTIME DAYNA Administration Insulin Human Lispro 0 unit 01/31/21 07:30 02/04/21 07:49 Insulin Lispro 100 Unit/Ml 3 Ml Vial SUBCUT 2 unit QIDACHS DAYNA Administration Protocol Insulin Human Lispro 5 unit 02/02/21 16:30 02/04/21 07:49 Insulin Lispro 100 Unit/Ml 3 Ml Vial SUBCUT 5 unit TIDAC [facility] Administration Magnesium Hydroxide 30 ml 01/31/21 02:49 Milk Of Magnesia 30 Ml Oral.Susp PO DAILY PRN Constipation Melatonin 6 mg 01/31/21 02:49 Melatonin 3 Mg Tablet PO BEDTIME PRN Insomnia Metformin HCl 1,000 mg 01/31/21 17:00 02/04/21 07:49 Metformin Hcl 1,000 Mg Tablet PO 1,000 mg BIDWM DAYNA Administration Methadone HCl 70 mg 01/31/21 12:00 02/04/21 07:49 Methadone Hcl 1 Mg/0.1 Ml Oral.Conc PO 70 mg DAILY DAYNA Administration Oxycodone HCl 5 mg 01/31/21 02:49 02/03/21 17:44 Oxycodone Hcl Immed Release 5 Mg Tablet PO 5 mg Q6H PRN Administration Pain, Severe (Pain Scale 7-10) Pharmacy Consult 1 each 01/31/21 00:09 Consult Rx Vancomycin Dosing MISCELLANE DAILY PRN Consult order Pharmacy Consult 1 each 01/31/21 02:47 Consult Rx Vancomycin Dosing MISCELLANE DAILY PRN Consult order Sodium Chloride 3 ml 01/31/21 08:00 02/04/21 07:51 0.9 % Sodium Chloride Flush 3 Ml Syringe IVFLUSH 3 ml QSHIFT [facility] Administration Labs CBC & Chem 7: 02/01/21 05:38 02/02/21 14:40 Labs: Laboratory Results - last 24 hr 02/03/21 02/03/21 02/03/21 10:53 12:32 16:06 POC Glucose 316 H 70 Vancomycin Trough 15.7 02/03/21 02/04/21 19:59 07:00 POC Glucose 256 H 178 H Vancomycin Trough Assessment and Plan (1) Diabetic infection of left foot: Status: Acute Assessment and Plan: 35-year-old male with a past medical history of diabetes, polysubstance abuse, opiate dependence on methadone, diabetic neuropathy, history of bilateral toe amputation, history of osteomyelitis presented to the hospital with a chief complaint of left heel ulcer with pain and discharge for 2 weeks; noted to have osteomyelitis.. Diabetic foot ulcer/Osteomylitis -s/p debridment by surgery - [place], changed [place]vanz [place] -ID consult recommends 6 weeks of IVanz -Midline today Diabetes--Insulin, Metformin, pre meal insulin, increased Lantus to 20 last night with better result Opioid dependence--methadone heparin for DVT prophylaxix Dispo--SNF for long-term Abx Quality Stroke Does the patient have a stroke diagnosis?: No VTE Prior VTE?: No VTE Risk Level:: Medical - moderate - high VTE Device Contraindication: Treatment Not Indicated VTE Drug Contraindication: N/A - Med Ordered
[2021-02-04 11:11] LABS: Glucose, Whole Blood 218 mg/dL (60-115)
--- NOTE | 2021-02-04 12:47 | HO.MIDLINE_ITS ---
PICC Line Insertion MIDLINE INSERTION Diagnosis: OSTEOMYELITIS Indication: IV ANTIBIOTICS Pertinent Labs: REVIEWED Technique:Using sterile technique including cap and mask, glove and drape, the RIGHT arm was prepped and draped in the usual sterile fashion of full barrier technique with CHG. Using ultrasound guidance, BASILIC vein access was obtained IN SINGLE ATTEMPT BY THIS RN W/O DIFFICULTY. A (20G x 8CM) MIDLINE WAS ATTEMPTED FOR POSITIONING. DURING ADVANCEMENT OF MIDLINE CATHETER ONCE WIRE WAS DEPLOYED, RESISTANCE MET. DEVICE CAREFULLY WITHDRAWN FROM PT'S RUE. UPON REMOVAL OF DEVICE, IMMEDIATELY NOTICED TIP OF MIDLINE CATHETER WAS SHEARED OFF; REMAINING CATHETER MEASURED OUT TO BE 6 CM LONG. MANUAL PRESSURE WAS PLACED OVER INSERTION SITE AND DR RAMIREZ WAS CALLED FOR ASSISTANCE. UPON ASSESSING, PER DR RAMIREZ, IT WAS OKAY TO PLACE ANOTHER MIDLINE AT THIS TIME, AND PER PROTOCOL, AN UPPER EXTREMITY XRAY WAS ORDERED FOR R/O SOFT TISSUE FB. PT DENIED ANY COMPLAINTS R/T MIDLINE INSERTION; DENIES ANY PAIN AT INSERTION SITE, CHEST PAIN, SOB. NO NOTABLE SWELLING NOTED; BASELINE ARM CIRCUMFERENCE MEASURED. PATIENT, ORDERING PHYSICIAN AND PRIMARY RN MADE AWARE OF PLAN FOR XRAY. Using ultrasound guidance, BASILIC vein access was again obtained without difficulty, SO TOTAL x2 ATTEMPTS MADE BY THIS RN. A SINGLE LUMEN, NON-PASV, (20G x 8CM) MIDLINE was positioned. The procedure was performed in S-272. Ultrasound was used to document vein patency and for needle entry. A formal ultrasound picture was recorded. [facility] has released the line for use and it is currently dressed with a StatLock, Tegaderm, and CHG disc. Verification has been performed for blood return and line patency. Arm Circumference: 34 CM Equipment: [employer] POWERGLIDE PRO Catheter Type: SINGLE LUMEN, NON-PASV, (20G x 8CM) Lot #: [id number]
[2021-02-04 16:00] LABS: Glucose, Whole Blood 120 mg/dL (60-115)
[2021-02-04] MEDS: Insulin Glargine,Hum.rec.anlog 100 UNIT/ML 10 ML VIAL 20 UNIT SUBCUT (20:01)
[2021-02-04 20:02] LABS: Glucose, Whole Blood 141 mg/dL (60-115)
[2021-02-05 00:52] LABS: Creatinine Clr Calc Pharmacy 75.8; Estimated Glomerular Filt Rate 56
[2021-02-05 01:00] LABS: Vancomycin Trough 23.5 mcg/mL (10.0-20.0)
[2021-02-05] MEDS: Heparin Sodium,Porcine 5,000 UNIT/ML VIAL 5000 UNIT SUBCUT ×3 (03:16→18:22)
[2021-02-05 03:42] VITALS: BP 145/86; PULSE 67; RESP 18; TEMP 36.5; O2SAT 97
[2021-02-05] MEDS: Clindamycin Phosphate/D5W 600 MG/50 ML PIGGYBACK 100 MG IV (05:06)
[2021-02-05] MEDS: Piperacillin Sodium/Tazobactam 3.375 GM in 0.9 % Sodium Chloride 50 ML IV ×3 (05:51→18:24)
[2021-02-05 06:14] LABS: COVID-19 Test Negative (Negative)
[2021-02-05 07:47] LABS: Glucose, Whole Blood 209 mg/dL (60-115)
[2021-02-05 08:00] VITALS: BP 140/89; PULSE 81; RESP 19; TEMP 37.1; O2SAT 97
--- NOTE | 2021-02-05 08:04 | PM.PNGS ---
Subjective Subjective Date of Service: 02/05/21 Interval history: denies new complaints some pain on foot Medline done yesterday for IV abx Physical Exam Vital Signs: Vital Signs: Last Vital Signs Temp 97.7 F 02/05/21 03:42 Pulse 67 02/05/21 03:42 Resp 18 02/05/21 03:42 BP 145/86 H 02/05/21 03:42 Pulse Ox 97 02/05/21 03:42 Body Mass Index 25.2 Const: Other: comfortable Resp: Effort & Inspection: normal respiratory effort Cardio: Other: reg rate Extrem: Other: left foot - ulcer on plantar aspect, scanty drainage, no cellulitis Procedures Date of Service Date of Service: 02/05/21 Progress Note: A&P Assessment and plan (1) Foot osteomyelitis, left: Status: Acute Assessment and Plan: DM foot ulcer with osteomyelitis on calcaneus dressings changed foot wrapped in Harinder rool for ferry terminal agent IV abx if with no response - may need BKA Fall Risk Details Current Medications: Current Medications Generic Name Dose Route Start Last Admin Trade Name Freq PRN Reason Stop Dose Admin Acetaminophen 650 mg 01/31/21 02:49 Acetaminophen 325 Mg Tablet PO Q6H PRN Pain, Mild (Pain Scale 1-3) Gabapentin 600 mg 01/31/21 09:00 02/04/21 20:01 Gabapentin 600 Mg Tablet PO 600 mg QID DAYNA Administration Heparin Sodium (Porcine) 5,000 unit 01/31/21 03:00 02/05/21 03:16 Heparin Sodium,Porcine 5,000 Unit/Ml Vial SUBCUT 5,000 unit Q8H DAYNA Administration Piperacillin Sod/Tazobactam 50 mls @ 100 mls/hr 01/31/21 06:00 02/05/21 06:23 Sod 3.375 gm/ Sodium Chloride IV Infused Q6H DAYNA Infusion Sodium Chloride 1,000 mls @ 100 mls/hr 02/05/21 08:00 Ns IVCONT .Q10H DAYNA Insulin Glargine 20 unit 02/03/21 21:00 02/04/21 20:01 Insulin Glargine,Hum.Rec.Anlog 100 Unit/Ml 10 Ml Vial SUBCUT 20 unit BEDTIME DAYNA Administration Insulin Human Lispro 0 unit 01/31/21 07:30 02/04/21 20:02 Insulin Lispro 100 Unit/Ml 3 Ml Vial SUBCUT Not Given QIDACHS [facility] Protocol Insulin Human Lispro 5 unit 02/02/21 16:30 02/04/21 15:59 Insulin Lispro 100 Unit/Ml 3 Ml Vial SUBCUT Not Given TIDAC [facility] Magnesium Hydroxide 30 ml 01/31/21 02:49 Milk Of Magnesia 30 Ml Oral.Susp PO DAILY PRN Constipation Melatonin 6 mg 01/31/21 02:49 Melatonin 3 Mg Tablet PO BEDTIME PRN Insomnia Metformin HCl 1,000 mg 01/31/21 17:00 02/04/21 16:47 Metformin Hcl 1,000 Mg Tablet PO 1,000 mg BIDWM DAYNA Administration Methadone HCl 70 mg 01/31/21 12:00 02/04/21 07:49 Methadone Hcl 1 Mg/0.1 Ml Oral.Conc PO 70 mg DAILY DAYNA Administration Pharmacy Consult 1 each 01/31/21 02:47 Consult Rx Vancomycin Dosing MISCELLANE DAILY PRN Consult order Sodium Chloride 3 ml 01/31/21 08:00 02/04/21 20:02 0.9 % Sodium Chloride Flush 3 Ml Syringe IVFLUSH 3 ml QSHIFT [facility] Administration Time Spent With Patient Time: Total time spent is greater than 50% in coordination of care (as documented) at patient's floor/unit and/or counseling patient: Time with patient: 15 - 24 minutes Quality Stroke Does the patient have a stroke diagnosis?: No VTE Prior VTE?: No VTE Risk Level:: Medical - moderate - high VTE Device Contraindication: Treatment Not Indicated VTE Drug Contraindication: N/A - Med Ordered
[2021-02-05] MEDS: Insulin Lispro 100 UNIT/ML 3 ML VIAL SUBCUT ×5 (08:41→16:53)
[2021-02-05] MEDS: metFORMIN HCl 1,000 MG TABLET 1000 MG PO ×2 (08:42→16:52)
[2021-02-05] MEDS: 0.9 % Sodium Chloride 1,000 ML 100 ML IVCONT ×2 (08:42→18:22)
[2021-02-05] MEDS: Gabapentin 600 MG TABLET PO ×4 (08:42→21:19)
[2021-02-05] MEDS: 0.9 % Sodium Chloride Flush 3 ML SYRINGE IVFLUSH (08:45)
--- NOTE | 2021-02-05 08:51 | MHC.CM.PN ---
Discharge is on hold today. [facility] has been notified. Delay is R?T elevated Creatinine. The MD has ordered fluids today. CM will continue to follow.
[2021-02-05 11:17] VITALS: BP 133/82; PULSE 77; RESP 19; TEMP 36.8; O2SAT 97
--- NOTE | 2021-02-05 11:22 | P.PNIM_ITS ---
Subjective Subjective Date of Service: 02/05/21 Interval History: F/u osteomylitis of the fooot, diabetic foot ulcer, comfortable, no new issues, last Vanco level was high at 23 and creatinine is going up at 1.42 today Review of Systems Gen: no fever Resp: no sob, no cough CV: no chest, no MAHAN, no leg edema GI: No n/v, no abd pain Neuro: No confusion Pain in the foot Physical Exam Vital Signs: Vital Signs: Last Vital Signs Temp 98.2 F 02/05/21 11:17 Pulse 77 02/05/21 11:17 Resp 19 02/05/21 11:17 BP 133/82 02/05/21 11:17 Pulse Ox 97 02/05/21 11:17 Body Mass Index 25.2 Const: General: comfortable and no acute distress Resp: Effort & Inspection: normal respiratory effort Cardio: Rate: regular rate Skin: Other: plantar wound looks better, there was some residual purulent material but with irrigation it all cleared out with my dressing change. finger inspection in wound does not reveal any undrained areas, no cellulitis of the foot. Extrem: Other: left foot transmetatarsal amputation stump - I and D site with packing, no residual fluctuance, no status, mild induration Objective Data Current Medications Generic Name Dose Route Start Last Admin Trade Name Reeceq PRN Reason Stop Dose Admin Acetaminophen 650 mg 01/31/21 02:49 Acetaminophen 325 Mg Tablet PO Q6H PRN Pain, Mild (Pain Scale 1-3) Gabapentin 600 mg 01/31/21 09:00 02/05/21 08:42 Gabapentin 600 Mg Tablet PO 600 mg QID DAYNA Administration Heparin Sodium (Porcine) 5,000 unit 01/31/21 03:00 02/05/21 03:16 Heparin Sodium,Porcine 5,000 Unit/Ml Vial SUBCUT 5,000 unit Q8H DAYNA Administration Piperacillin Sod/Tazobactam 50 mls @ 100 mls/hr 01/31/21 06:00 02/05/21 06:23 Sod 3.375 gm/ Sodium Chloride IV Infused Q6H DAYNA Infusion Sodium Chloride 1,000 mls @ 100 mls/hr 02/05/21 08:00 02/05/21 08:42 Ns IVCONT 100 mls/hr .Q10H DAYNA Administration Insulin Glargine 20 unit 02/03/21 21:00 02/04/21 20:01 Insulin Glargine,Hum.Rec.Anlog 100 Unit/Ml 10 Ml Vial SUBCUT 20 unit BEDTIME [facility] Administration Insulin Human Lispro 0 unit 01/31/21 07:30 02/05/21 08:41 Insulin Lispro 100 Unit/Ml 3 Ml Vial SUBCUT 4 unit QIDACHS [facility] Administration Protocol Insulin Human Lispro 5 unit 02/02/21 16:30 02/05/21 08:41 Insulin Lispro 100 Unit/Ml 3 Ml Vial SUBCUT 5 unit TIDAC [facility] Administration Magnesium Hydroxide 30 ml 01/31/21 02:49 Milk Of Magnesia 30 Ml Oral.Susp PO DAILY PRN Constipation Melatonin 6 mg 01/31/21 02:49 Melatonin 3 Mg Tablet PO BEDTIME PRN Insomnia Metformin HCl 1,000 mg 01/31/21 17:00 02/05/21 08:42 Metformin Hcl 1,000 Mg Tablet PO 1,000 mg BIDWM [facility] Administration Methadone HCl 70 mg 01/31/21 12:00 02/05/21 08:42 Methadone Hcl 1 Mg/0.1 Ml Oral.Conc PO 70 mg DAILY [facility] Administration Pharmacy Consult 1 each 01/31/21 02:47 Consult Rx Vancomycin Dosing MISCELLANE DAILY PRN Consult order Sodium Chloride 3 ml 01/31/21 08:00 02/05/21 08:45 0.9 % Sodium Chloride Flush 3 Ml Syringe IVFLUSH 3 ml QSHIFT [facility] Administration Labs CBC & Chem 7: 02/01/21 05:38 02/05/21 00:21 Labs: Laboratory Results - last 24 hr 02/04/21 02/04/21 02/05/21 15:56 19:55 00:21 Estim Creat Clear Calc Estimated GFR POC Glucose 120 H 141 H Vancomycin Trough 23.5 H COVID-19 ([facility]) COVID-19 Clin Com 02/05/21 02/05/21 02/05/21 00:21 05:50 07:12 Estim Creat Clear Calc 75.8 Estimated GFR 56 POC Glucose 209 H Vancomycin Trough COVID-19 ([facility]) Negative COVID-19 Clin Com See Note Microbiology Microbiology Results: Microbiology 01/31/21 00:46 Blood Culture - Final Blood - Venous No growth after 5 days. 01/31/21 00:47 Blood Culture - Final Blood - Venous No growth after 5 days. Assessment and Plan (1) Diabetic infection of left foot: Status: Acute Assessment and Plan: 35-year-old male with a past medical history of diabetes, polysubstance abuse, opiate dependence on methadone, diabetic neuropathy, history of bilateral toe amputation, history of osteomyelitis presented to the hospital with a chief complaint of left heel ulcer with pain and discharge for 2 weeks; noted to have osteomyelitis.. Diabetic foot ulcer/Osteomylitis -s/p debridment by surgery - Liz[place], [place]vanz [place] -[place] consult recommends 6 weeks of IVanz -Midline today SMITHA--likely pre renal vs Vanco toxicy, vanco stopped, IV, Nephrology consult Diabetes--Insulin, Metformin, pre meal insulin, increased Lantus to 20 last night with better result Opioid dependence--methadone heparin for DVT prophylaxix Dispo--SNF for care home Abx Quality Stroke Does the patient have a stroke diagnosis?: No VTE Prior VTE?: No VTE Risk Level:: Medical - moderate - high VTE Device Contraindication: Treatment Not Indicated VTE Drug Contraindication: N/A - Med Ordered
[2021-02-05 11:39] LABS: Glucose, Whole Blood 152 mg/dL (60-115)
[2021-02-05 13:35] LABS: Vancomycin Trough 13.1 mcg/mL (10.0-20.0)
[2021-02-05 14:50] VITALS: BP 135/71; PULSE 78; RESP 20; TEMP 36.4; O2SAT 97
[2021-02-05 15:57] LABS: Glucose Urine UA NEG (NEG); Leukocyte Esterase Urine NEG (NEG); Nitrite Urine NEG (NEG); PH 7.5 (5.0-8.0); Urine Blood NEG (NEG); Urine Ketones NEG (NEG); Urine Protein 1+ MG/DL (NEG-TRACE)
[2021-02-05 15:59] LABS: Appearance Urine CLEAR; Color Urine YELLOW
[2021-02-05 16:04] LABS: Glucose, Whole Blood 147 mg/dL (60-115)
[2021-02-05 16:10] LABS: RBC Urine 0-2 /HPF (0); Squamous Epithelial Cell Urine TRACE /LPF; WBC Urine 0-2 /HPF (0-4)
--- NOTE | 2021-02-05 16:43 | PC.NURSE ---
Skin/wound assessment completed today. Patient has a left heel diabetic ulcer which was debrided by surgery. It is being packed with betadine soaked gauze, covered with gauze and roll gauze. Patient was admitted with infected diabetic ulcer on left heel. being treated with antibiotics. No other skin issues noted.
[2021-02-05 16:51] LABS: Creatinine Urine 136.72 mg/dL; Total Protein Urine Random 52 mg/dL (<12)
[2021-02-05 19:03] VITALS: BP 120/71; PULSE 81; RESP 20; TEMP 36.4; O2SAT 97
[2021-02-05 20:15] LABS: Glucose, Whole Blood 131 mg/dL (60-115)
[2021-02-05] MEDS: Insulin Glargine,Hum.rec.anlog 100 UNIT/ML 10 ML VIAL 20 UNIT SUBCUT (21:18)
[2021-02-05 23:42] VITALS: BP 143/84; PULSE 71; RESP 15; TEMP 36.6; O2SAT 98
[2021-02-06] VITALS (7 sets, daily range): BP systolic 122–150; BP diastolic 72–89; PULSE 71–80; RESP 18–20; TEMP 36.1–37.2; O2SAT 94–99
[2021-02-06] MEDS: Piperacillin Sodium/Tazobactam 3.375 GM in 0.9 % Sodium Chloride 50 ML IV ×5 (00:03→23:43)
[2021-02-06] MEDS: Heparin Sodium,Porcine 5,000 UNIT/ML VIAL 5000 UNIT SUBCUT ×3 (03:48→17:59)
[2021-02-06] MEDS: 0.9 % Sodium Chloride 1,000 ML 100 ML IVCONT ×2 (04:16→11:46)
[2021-02-06 06:34] LABS: Anion Gap 13 (12-20); Blood Urea Nitrogen 13 mg/dL (9-16); Calcium 9.4 mg/dL (8.4-10.2); Carbon Dioxide 27 mmol/L (22-29); Chloride 104 mmol/L (96-108); Creatinine Clr Calc Pharmacy 76.9; Estimated Glomerular Filt Rate 57; Glucose Random 85 mg/dL (60-115); Potassium 4.3 mmol/L (3.3-5.1); Sodium 140 mmol/L (135-145)
[2021-02-06 07:48] LABS: Glucose, Whole Blood 88 mg/dL (60-115)
[2021-02-06] MEDS: metFORMIN HCl 1,000 MG TABLET 1000 MG PO ×2 (08:02→17:08)
[2021-02-06] MEDS: Gabapentin 600 MG TABLET PO ×4 (08:03→20:44)
[2021-02-06] MEDS: Insulin Lispro 100 UNIT/ML 3 ML VIAL SUBCUT ×5 (08:04→20:45)
--- NOTE | 2021-02-06 08:57 | PM.PNNEP ---
Subjective Subjective Date of Service: 02/06/21 Interval history: F/u osteomylitis of the fooot, diabetic foot ulcer, comfortable no new issues last Vanco level IMproved and creatinine is stable around 1.4 Physical Exam Vital Signs: Vital Signs: Last Vital Signs Temp 97.4 F 02/06/21 07:19 Pulse 71 02/06/21 07:19 Resp 20 02/06/21 07:19 BP 150/89 H 02/06/21 07:19 Pulse Ox 98 02/06/21 07:19 Body Mass Index 25.2 Const General:?comfortable and no acute distress Resp Effort & Inspection:?normal respiratory effort Cardio Rate:?regular rate Skin Other:?plantar wound looks better, there was some residual purulent material but with irrigation it all cleared out with my dressing change. finger inspection in wound does not reveal any undrained areas, no cellulitis of the foot. Extrem Other:?left foot transmetatarsal amputation stump - I and D site with packing, no residual fluctuance, no status, mild induration Objective Data Labs CBC & Chem 7: 02/01/21 05:38 02/06/21 05:32 Labs: Laboratory Results - last 24 hr 02/05/21 02/05/21 02/05/21 11:20 12:40 15:56 Sodium Potassium Chloride Carbon Dioxide Anion Gap BUN Creatinine Estim Creat Clear Calc Estimated GFR POC Glucose 152 H 147 H Random Glucose Calcium Urine Color Urine Appearance Urine pH Ur Specific [place] Urine Protein Urine Glucose (UA) Urine Ketones Urine Blood Urine Nitrite Ur Leukocyte Esterase Urine RBC Urine WBC Ur Squamous Epith Cells Urine Bacteria U Random Total Protein Ur Random Sodium Urine Creatinine Vancomycin Trough 13.1 02/05/21 02/05/21 02/05/21 20:04 Unknown Unknown Sodium Potassium Chloride Carbon Dioxide Anion Gap BUN Creatinine Estim Creat Clear Calc Estimated GFR POC Glucose 131 H Random Glucose Calcium Urine Color YELLOW Urine Appearance CLEAR Urine pH 7.5 Ur Specific [place] 1.020 Urine Protein 1+ H Urine Glucose (UA) NEG Urine Ketones NEG Urine Blood NEG Urine Nitrite NEG Ur Leukocyte Esterase NEG Urine RBC 0-2 Urine WBC 0-2 Ur Squamous Epith Cells TRACE Urine Bacteria NONE U Random Total Protein 52 H Ur Random Sodium 132.0 Urine Creatinine 136.72 Vancomycin Trough 02/06/21 02/06/21 05:32 07:10 Sodium 140 Potassium 4.3 Chloride 104 Carbon Dioxide 27 Anion Gap 13 BUN 13 Creatinine 1.40 Estim Creat Clear Calc 76.9 Estimated GFR 57 POC Glucose 88 Random Glucose 85 D Calcium 9.4 Urine Color Urine Appearance Urine pH Ur Specific [place] Urine Protein Urine Glucose (UA) Urine Ketones Urine Blood Urine Nitrite Ur Leukocyte Esterase Urine RBC Urine WBC Ur Squamous Epith Cells Urine Bacteria U Random Total Protein Ur Random Sodium Urine Creatinine Vancomycin Trough Microbiology Microbiology Results: Microbiology 01/31/21 00:46 Blood - Venous Blood Culture - Final No growth after 5 days. 01/31/21 00:47 Blood - Venous Blood Culture - Final No growth after 5 days. Procedures Date of Service Date of Service: 02/06/21 Assessment & Plan Time Spent With Patient Time: 1. SMITHA _ Due to Vanco toxicity Acute Tubular injury due to infection Doubt AIN/ AGN - [place] urine sediment Doubt Obstructive uropathy 2. Lower Ext foot Ulcer IVF - Gentle Off Vanco Hold Nephrotoxins Can be d/c'd from renal stand point and f/u in our office Check Renal func in Am if pt in house or check labs on Tuesdayx Dr. Gibbs Total time spent is greater than 50% in coordination of care (as documented) at patient's floor/unit and/or counseling patient: Progress Note: Quality Stroke Does the patient have a stroke diagnosis?: No
[2021-02-06 11:15] LABS: Glucose, Whole Blood 115 mg/dL (60-115)
--- NOTE | 2021-02-06 12:37 | CONS_ITS ---
DATE OF SERVICE: 02/05/2021 REASON FOR CONSULTATION: Consult requested by the medical team to evaluate and help in management of the patient's acute kidney injury. HISTORY OF PRESENT ILLNESS: The patient is a 35-year-old male with longstanding diabetes, history of polysubstance abuse, opiate dependence on methadone, diabetic neuropathy, and likely mild diabetic nephropathy, baseline creatinine ranging around 1.1 to 1.3, history of bilateral toe amputation, osteomyelitis, presented to the hospital with chief complaint of left heel ulcer pain and discharge for 2 weeks. He was noted to have osteomyelitis. There was also gas in the soft tissue. He was also had open ulcer with pus drainage. He was initiated on IV vancomycin and Zosyn and General Surgery was consulted, and I and D was recommended. He denies any trauma, chest pain, or palpitation. 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 Denies using any NSAIDs. There is no fever or chills. Renal consult has been requested as his creatinine increased to 1.42. REVIEW OF SYSTEMS: As noted above. Other systems were reviewed, negative. PAST MEDICAL HISTORY: History of longstanding diabetes, history of substance abuse, anemia, nonhealing ulcers, peripheral vascular disease, history of osteomyelitis, opioid dependence on methadone, diabetic neuropathy, and toe amputation. PAST SURGICAL HISTORY: Include an appendectomy, carpal tunnel surgery of the left wrist, transmetatarsal amputation of the left foot, toe amputation. FAMILY HISTORY: Mother had cardiovascular disease, diabetes and cancer. Father had diabetes and cardiovascular disease. PERSONAL AND SOCIAL HISTORY: The patient used to be a polysubstance abuser. Presently, he is on methadone. It is unclear if he drinks or smokes. ALLERGIES: THE PATIENT HAS NO KNOWN DRUG ALLERGIES. HOME MEDICATIONS: Include ferrous sulfate, gabapentin, insulin, metformin, methadone. PHYSICAL EXAMINATION: GENERAL: The patient is resting in the bed. Awake, alert, able to follow commands. VITAL SIGNS: Blood pressure is 133/82, pulse 77, afebrile. HEENT: Shows pupils equal bilaterally and reactive to light. No jugular venous distention is noted. NECK: Supple. Mucosa moist. There is no scleral icterus or conjunctival congestion. CARDIOVASCULAR SYSTEM: S1, S2 without rub. RESPIRATORY SYSTEM: Air entry decreased in the bases. ABDOMEN: Soft. Bowel sounds normal. EXTREMITIES: Showed trace edema with left foot transmetatarsal amputation stump with dressing. NEURO: Essentially nonfocal. LABORATORY DATA: Labs done today. Creatinine 1.42, glucose was 152. Last sodium was 139, potassium 4.8. WBC 6.4, hemoglobin 8.5, hematocrit 25.4, platelets were 224. There is no urine testing done on this patient this admission. Vancomycin level with trough was 23.5 this morning. IMPRESSION: 1. A 35-year-old male with acute kidney injury. Acute kidney injury in this patient likely secondary to multifactorial reasons including tubular injury in the setting of high vancomycin level with likely vancomycin toxicity. He also likely has infection due to renal hypoperfusion and tubular damage. I do not have urinalysis to comment on the possibility of acute GN/interstitial disease. We also need to rule out obstruction if renal function does not improve over the next 24 hours. 2. Stage 2/3A chronic kidney disease at baseline in the setting of longstanding diabetes, likely diabetic nephropathy. 3. Lower extremity diabetic foot ulcer with osteomyelitis. 4. Opioid dependence. RECOMMENDATIONS: At this juncture, I have taken the liberty to order a full urinalysis with microscopy. I will also order a spot urine for electrolytes, protein, and creatinine. I agree with holding off on the vancomycin. I suggest changing the Zosyn dose to 3.375 g q.8 hourly. If the patient's creatinine does not improve, I recommend changing the metformin to another antidiabetic agents. Might also have to decrease the dose of Neurontin if the patient's renal function does not improve in a.m. to prevent gabapentin toxicity. I agree with continuation of hydration with normal saline at 100 mL an hour. As mentioned before, if the patient's renal function does not improve, we need to do a renal ultrasound. Thank you for allowing me to participate in the medical management of the patient. MD AMBER Gonzalez/COLETTE / [phone]
--- NOTE | 2021-02-06 15:52 | MHC.CM.PN ---
Male 35 DX Heal Ulcer Osteo. DP to [facility] for IV ABX via BLS. DC delayed r/t Renal function. Facility re submitting for AUTH. CM will follow.
[2021-02-06 16:20] LABS: Glucose, Whole Blood 175 mg/dL (60-115)
--- NOTE | 2021-02-06 17:00 | P.PNIM_ITS ---
Subjective Subjective Date of Service: 02/06/21 Interval History: foot osteo, smitha Review of Systems Denies any new complaints including chest pain or shortness of breath or abdominal pain or any foot pain currently Or fever chills Physical Exam Vital Signs: Vital Signs: Last Vital Signs Temp 97.6 F 02/06/21 15:21 Pulse 80 02/06/21 15:21 Resp 18 02/06/21 15:21 BP 135/80 02/06/21 15:21 Pulse Ox 98 02/06/21 15:21 Body Mass Index 25.2 Physical exam: Cvs: rrr, [id number] , no murmur res: clear to auscultation ,no rhonchii or wheezing abd: no rebound or guarding ,nt, bs present. neuro: axo3 , nonfocal. ext:plantar wound looks better, there was some residual purulent material but with irrigation it all cleared out with my dressing change. finger inspection in wound does not reveal any undrained areas, no cellulitis of the foot Objective Data Current Medications Generic Name Dose Route Start Last Admin Trade Name Reeceq PRN Reason Stop Dose Admin Acetaminophen 650 mg 01/31/21 02:49 Acetaminophen 325 Mg Tablet PO Q6H PRN Pain, Mild (Pain Scale 1-3) Gabapentin 600 mg 01/31/21 09:00 02/06/21 11:41 Gabapentin 600 Mg Tablet PO 600 mg QID DAYNA Administration Heparin Sodium (Porcine) 5,000 unit 01/31/21 03:00 02/06/21 11:42 Heparin Sodium,Porcine 5,000 Unit/Ml Vial SUBCUT 5,000 unit Q8H DAYNA Administration Piperacillin Sod/Tazobactam 50 mls @ 100 mls/hr 01/31/21 06:00 02/06/21 12:40 Sod 3.375 gm/ Sodium Chloride IV Infused Q6H DAYNA Infusion Insulin Glargine 20 unit 02/03/21 21:00 02/05/21 21:18 Insulin Glargine,Hum.Rec.Anlog 100 Unit/Ml 10 Ml Vial SUBCUT 20 unit BEDTIME DAYNA Administration Insulin Human Lispro 0 unit 01/31/21 07:30 02/06/21 11:46 Insulin Lispro 100 Unit/Ml 3 Ml Vial SUBCUT Not Given QIDACHS [facility] Protocol Insulin Human Lispro 5 unit 02/02/21 16:30 02/06/21 11:42 Insulin Lispro 100 Unit/Ml 3 Ml Vial SUBCUT 5 unit TIDAC DAYNA Administration Magnesium Hydroxide 30 ml 01/31/21 02:49 Milk Of Magnesia 30 Ml Oral.Susp PO DAILY PRN Constipation Melatonin 6 mg 01/31/21 02:49 Melatonin 3 Mg Tablet PO BEDTIME PRN Insomnia Metformin HCl 1,000 mg 01/31/21 17:00 02/06/21 08:02 Metformin Hcl 1,000 Mg Tablet PO 1,000 mg BIDWM DAYNA Administration Methadone HCl 70 mg 01/31/21 12:00 02/06/21 08:03 Methadone Hcl 1 Mg/0.1 Ml Oral.Conc PO 70 mg DAILY DAYNA Administration Pharmacy Consult 1 each 01/31/21 02:47 Consult Rx Vancomycin Dosing MISCELLANE DAILY PRN Consult order Sodium Chloride 3 ml 01/31/21 08:00 02/06/21 08:06 0.9 % Sodium Chloride Flush 3 Ml Syringe IVFLUSH Not Given QSHIFT [facility] Labs CBC & Chem 7: 02/01/21 05:38 02/06/21 05:32 Labs: Laboratory Results - last 24 hr 02/05/21 02/06/21 02/06/21 20:04 05:32 07:10 Anion Gap 13 Estim Creat Clear Calc 76.9 Estimated GFR 57 POC Glucose 131 H 88 Random Glucose 85 D Calcium 9.4 02/06/21 02/06/21 11:07 16:12 Anion Gap Estim Creat Clear Calc Estimated GFR POC Glucose 115 175 H Random Glucose Calcium Assessment and Plan (1) Diabetic infection of left foot: Status: Acute (2) SMITHA (acute kidney injury): Status: Acute Assessment and Plan: 35-year-old male with a past medical history of diabetes, polysubstance abuse, opiate dependence on methadone, diabetic neuropathy, history of bilateral toe amputation, history of osteomyelitis presented to the hospital with a chief complaint of left heel ulcer with pain and discharge for 2 weeks; noted to have osteomyelitis.. Diabetic foot ulcer/Osteomylitis -s/p debridment by surgery - Zosyn, [place]vanz [place] -ID consult recommends 6 weeks of IVanz s/p midline SMITHA--likely pre renal vs Vanco toxicy, vanco stopped, IV, Nephrology consult- seems improved smitha bear , stop fluids. Diabetes--Insulin, Metformin, pre meal insulin, increased Lantus to 20 last night with better result Opioid dependence--methadone heparin for DVT prophylaxix Dispo--SNF for [facility] Abx, [facility] rehab Quality Stroke Does the patient have a stroke diagnosis?: No VTE Prior VTE?: No VTE Risk Level:: Medical - moderate - high VTE Device Contraindication: Treatment Not Indicated VTE Drug Contraindication: N/A - Med Ordered
[2021-02-06] MEDS: 0.9 % Sodium Chloride Flush 3 ML SYRINGE IVFLUSH ×2 (17:13→20:45)
[2021-02-06 20:20] LABS: Glucose, Whole Blood 226 mg/dL (60-115)
[2021-02-06] MEDS: Insulin Glargine,Hum.rec.anlog 100 UNIT/ML 10 ML VIAL 20 UNIT SUBCUT (20:44)
[2021-02-07 03:17] VITALS: BP 131/61; PULSE 72; RESP 20; TEMP 37; O2SAT 96
[2021-02-07] MEDS: Piperacillin Sodium/Tazobactam 3.375 GM in 0.9 % Sodium Chloride 50 ML IV (05:07)
[2021-02-07] MEDS: Heparin Sodium,Porcine 5,000 UNIT/ML VIAL 5000 UNIT SUBCUT ×3 (05:07→19:17)
[2021-02-07 07:07] LABS: Glucose, Whole Blood 141 mg/dL (60-115)
[2021-02-07 07:11] VITALS: BP 139/80; PULSE 71; RESP 18; TEMP 36.6; O2SAT 98
[2021-02-07] MEDS: Gabapentin 600 MG TABLET PO ×4 (09:00→21:45)
[2021-02-07] MEDS: metFORMIN HCl 1,000 MG TABLET 1000 MG PO ×2 (09:00→16:32)
[2021-02-07] MEDS: 0.9 % Sodium Chloride Flush 3 ML SYRINGE IVFLUSH ×3 (09:00→21:46)
[2021-02-07 09:01] LABS: Anion Gap 16 (12-20); Blood Urea Nitrogen 12 mg/dL (9-16); Calcium 9.9 mg/dL (8.4-10.2); Carbon Dioxide 27 mmol/L (22-29); Chloride 104 mmol/L (96-108); Creatinine Clr Calc Pharmacy 75.8; Estimated Glomerular Filt Rate 56; Glucose Random 135 mg/dL (60-115); Potassium 4.6 mmol/L (3.3-5.1); Sodium 142 mmol/L (135-145)
--- NOTE | 2021-02-07 09:10 | P.PNNP_ITS ---
Subjective Subjective Date of Service: 02/07/21 Interval history: seen and examined no complaints Physical Exam Vital Signs: Vital Signs: Last Vital Signs Temp 97.8 F 02/07/21 07:11 Pulse 71 02/07/21 07:11 Resp 18 02/07/21 07:11 BP 139/80 02/07/21 07:11 Pulse Ox 98 02/07/21 07:11 Body Mass Index 25.2 Const: General: no acute distress HENMT: Head: Yes normocephalic and Yes atraumatic Neck: Neck: Yes supple Resp: Auscultation: clear to auscultation bilaterally Cardio: Heart sounds: S1 normal heart sound present and S2 normal heart sound present GI: Palpation (GI): Soft to palpation and nontender Neuro: General: moves all extremities Extrem: General: No edema Objective Data Labs CBC & Chem 7: 02/01/21 05:38 02/07/21 08:08 Labs: Laboratory Results - last 24 hr 02/06/21 02/06/21 02/06/21 11:07 16:12 20:11 Sodium Potassium Chloride Carbon Dioxide Anion Gap BUN Creatinine Estim Creat Clear Calc Estimated GFR POC Glucose 115 175 H 226 H Random Glucose Calcium 02/07/21 02/07/21 07:01 08:08 Sodium 142 Potassium 4.6 Chloride 104 Carbon Dioxide 27 Anion Gap 16 BUN 12 Creatinine 1.42 H Estim Creat Clear Calc 75.8 Estimated GFR 56 POC Glucose 141 H Random Glucose 135 H D Calcium 9.9 Microbiology Microbiology Results: Microbiology 01/31/21 00:46 Blood - Venous Blood Culture - Final No growth after 5 days. 01/31/21 00:47 Blood - Venous Blood Culture - Final No growth after 5 days. Procedures Date of Service Date of Service: 02/07/21 Assessment & Plan Assessment and plan (1) SMITHA (acute kidney injury): Status: Acute (2) Foot osteomyelitis, left: Status: Acute (3) Anemia: Status: Acute Assessment and Plan: stable kidney function SMITHA due to vancomycin nephrotoxicity mot consistent with snow infectious nephritis true clearance is also better than eGFR REC avoid nephrotoxins follow kidney function and electrolytes Time Spent With Patient Time: Total time spent is greater than 50% in coordination of care (as documente d) at patient's floor/unit and/or counseling patient: Progress Note: Quality Stroke Does the patient have a stroke diagnosis?: No
--- NOTE | 2021-02-07 10:08 | HO.PM.IMPN ---
Subjective Subjective Date of Service: 02/07/21 Interval History: F/u on osteomylitis, SMITHA Review of Systems Denies any new complaints including chest pain or shortness of breath or abdominal pain or any foot pain currently Or fever chills Physical Exam Vital Signs: Vital Signs: Last Vital Signs Temp 97.8 F 02/07/21 07:11 Pulse 71 02/07/21 07:11 Resp 18 02/07/21 07:11 BP 139/80 02/07/21 07:11 Pulse Ox 98 02/07/21 07:11 Body Mass Index 25.2 Const: General: comfortable and no acute distress Resp: Effort & Inspection: normal respiratory effort Cardio: Rate: regular rate Skin: Other: plantar wound looks better, there was some residual purulent material but with irrigation it all cleared out with my dressing change. finger inspection in wound does not reveal any undrained areas, no cellulitis of the foot. Extrem: Other: left foot transmetatarsal amputation stump - I and D site with packing, no residual fluctuance, no status, mild induration Objective Data Current Medications Generic Name Dose Route Start Last Admin Trade Name Freq PRN Reason Stop Dose Admin Acetaminophen 650 mg 01/31/21 02:49 Acetaminophen 325 Mg Tablet PO Q6H PRN Pain, Mild (Pain Scale 1-3) Gabapentin 600 mg 01/31/21 09:00 02/07/21 09:00 Gabapentin 600 Mg Tablet PO 600 mg QID DAYNA Administration Heparin Sodium (Porcine) 5,000 unit 01/31/21 03:00 02/07/21 05:07 Heparin Sodium,Porcine 5,000 Unit/Ml Vial SUBCUT 5,000 unit Q8H DAYNA Administration Insulin Glargine 20 unit 02/03/21 21:00 02/06/21 20:44 Insulin Glargine,Hum.Rec.Anlog 100 Unit/Ml 10 Ml Vial SUBCUT 20 unit BEDTIME [facility] Administration Insulin Human Lispro 0 unit 01/31/21 07:30 02/07/21 08:50 Insulin Lispro 100 Unit/Ml 3 Ml Vial SUBCUT Not Given QIDACHS [facility] Protocol Insulin Human Lispro 5 unit 02/02/21 16:30 02/07/21 08:51 Insulin Lispro 100 Unit/Ml 3 Ml Vial SUBCUT Not Given TIDAC [facility] Magnesium Hydroxide 30 ml 01/31/21 02:49 Milk Of Magnesia 30 Ml Oral.Susp PO DAILY PRN Constipation Melatonin 6 mg 01/31/21 02:49 Melatonin 3 Mg Tablet PO BEDTIME PRN Insomnia Metformin HCl 1,000 mg 01/31/21 17:00 02/07/21 09:00 Metformin Hcl 1,000 Mg Tablet PO 1,000 mg BIDWM DAY[facility] Administration Methadone HCl 70 mg 01/31/21 12:00 02/07/21 09:01 Methadone Hcl 1 Mg/0.1 Ml Oral.Conc PO 70 mg DAILY DAY[facility] Administration Sodium Chloride 3 ml 01/31/21 08:00 02/07/21 09:00 0.9 % Sodium Chloride Flush 3 Ml Syringe IVFLUSH 3 ml QSHIFT DAYNA Administration Labs CBC & Chem 7: 02/01/21 05:38 02/07/21 08:08 Labs: Laboratory Results - last 24 hr 01/31/21 01/31/21 02/01/21 00:47 07:22 05:38 Anion Gap Creatinine 1.36 1.19 1.15 Estim Creat Clear Calc Estimated GFR POC Glucose Random Glucose Calcium 02/02/21 02/05/21 02/06/21 14:40 00:21 05:32 Anion Gap Creatinine 1.15 1.42 H 1.40 Estim Creat Clear Calc Estimated GFR POC Glucose Random Glucose Calcium 02/06/21 02/06/21 02/06/21 11:07 16:12 20:11 Anion Gap Creatinine Estim Creat Clear Calc Estimated GFR POC Glucose 115 175 H 226 H Random Glucose Calcium 02/07/21 02/07/21 07:01 08:08 Anion Gap 16 Creatinine 1.42 H Estim Creat Clear Calc 75.8 Estimated GFR 56 POC Glucose 141 H Random Glucose 135 H D Calcium 9.9 Assessment and Plan (1) Diabetic infection of left foot: Status: Acute Assessment and Plan: 35-year-old male with a past medical history of diabetes, polysubstance abuse, opiate dependence on methadone, diabetic neuropathy, history of bilateral toe amputation, history of osteomyelitis presented to the hospital with a chief complaint of left heel ulcer with pain and discharge for 2 weeks; noted to have osteomyelitis.. Diabetic foot ulcer/Osteomylitis -s/p debridment by surgery - Zosyn, [place] Invanz at [place] -ID recommends 6 weeks of IVanz -Midline placed SMITHA--likely pre renal vs Vanco toxicy, vanco stopped, IV, Nephrology following, Creatinin still bout 1.42 Diabetes--Insulin, Metformin, pre meal insulin, increased Lantus to 20 last night with better result Opioid dependence--methadone heparin for DVT prophylaxix Dispo--SNF for [facility] Abx by Tuesday (2) Foot osteomyelitis, left: Status: Acute (3) SMITHA (acute kidney injury): Status: Acute Quality Stroke Does the patient have a stroke diagnosis?: No VTE Prior VTE?: No VTE Risk Level:: Medical - moderate - high VTE Device Contraindication: Treatment Not Indicated VTE Drug Contraindication: N/A - Med Ordered
[2021-02-07 10:58] VITALS: BP 137/80; PULSE 73; RESP 18; TEMP 36.6; O2SAT 98
[2021-02-07 11:14] LABS: Glucose, Whole Blood 230 mg/dL (60-115)
[2021-02-07] MEDS: Insulin Lispro 100 UNIT/ML 3 ML VIAL SUBCUT ×4 (11:32→21:46)
[2021-02-07 15:37] VITALS: BP 116/68; PULSE 82; RESP 15; TEMP 36.8; O2SAT 96
[2021-02-07 16:08] LABS: Glucose, Whole Blood 171 mg/dL (60-115)
[2021-02-07 19:54] VITALS: BP 130/80; PULSE 80; RESP 15; TEMP 36.6; O2SAT 95
[2021-02-07 20:07] LABS: Glucose, Whole Blood 157 mg/dL (60-115)
[2021-02-07] MEDS: Insulin Glargine,Hum.rec.anlog 100 UNIT/ML 10 ML VIAL 20 UNIT SUBCUT (21:46)
[2021-02-07 23:32] VITALS: BP 132/69; PULSE 79; RESP 18; TEMP 36.4; O2SAT 93
[2021-02-08 03:38] VITALS: BP 140/81; PULSE 76; RESP 18; TEMP 36.6; O2SAT 96
[2021-02-08] MEDS: Heparin Sodium,Porcine 5,000 UNIT/ML VIAL 5000 UNIT SUBCUT ×2 (05:39→11:25)
[2021-02-08 06:08] LABS: Anion Gap 15 (12-20); Blood Urea Nitrogen 14 mg/dL (9-16); Calcium 9.5 mg/dL (8.4-10.2); Carbon Dioxide 29 mmol/L (22-29); Chloride 102 mmol/L (96-108); Creatinine Clr Calc Pharmacy 87.5; Estimated Glomerular Filt Rate > 60; Glucose Random 149 mg/dL (60-115); Potassium 4.9 mmol/L (3.3-5.1); Sodium 141 mmol/L (135-145)
[2021-02-08 07:07] LABS: Glucose, Whole Blood 139 mg/dL (60-115)
[2021-02-08] MEDS: metFORMIN HCl 1,000 MG TABLET 1000 MG PO ×2 (07:27→17:35)
[2021-02-08] MEDS: Gabapentin 600 MG TABLET PO ×4 (07:27→20:45)
[2021-02-08] MEDS: Insulin Lispro 100 UNIT/ML 3 ML VIAL SUBCUT ×5 (07:28→20:45)
[2021-02-08] MEDS: 0.9 % Sodium Chloride Flush 3 ML SYRINGE IVFLUSH ×3 (07:29→23:34)
[2021-02-08 07:42] VITALS: BP 160/87; PULSE 82; RESP 20; TEMP 36.9; O2SAT 98
--- NOTE | 2021-02-08 08:51 | PM.PNNEP ---
Subjective Subjective Date of Service: 02/08/21 Interval history: seen and examined denies any complaint Physical Exam Vital Signs: Vital Signs: Last Vital Signs Temp 98.4 F 02/08/21 07:42 Pulse 82 02/08/21 07:42 Resp 20 02/08/21 07:42 BP 160/87 H 02/08/21 07:42 Pulse Ox 98 02/08/21 07:42 Body Mass Index 25.2 Const: General: no acute distress HENMT: Head: Yes normocephalic and Yes atraumatic Neck: Neck: Yes supple Resp: Auscultation: clear to auscultation bilaterally Cardio: Heart sounds: S1 normal heart sound present and S2 normal heart sound present GI: Palpation (GI): Soft to palpation and nontender Neuro: General: moves all extremities Extrem: General: No edema Objective Data Labs CBC & Chem 7: 02/01/21 05:38 02/08/21 04:55 Labs: Laboratory Results - last 24 hr 02/07/21 02/07/21 02/07/21 08:08 10:57 16:05 Sodium 142 Potassium 4.6 Chloride 104 Carbon Dioxide 27 Anion Gap 16 BUN 12 Creatinine 1.42 H Estim Creat Clear Calc 75.8 Estimated GFR 56 POC Glucose 230 H 171 H Random Glucose 135 H D Calcium 9.9 02/07/21 02/08/21 02/08/21 20:03 04:55 07:03 Sodium 141 Potassium 4.9 Chloride 102 Carbon Dioxide 29 Anion Gap 15 BUN 14 Creatinine 1.23 Estim Creat Clear Calc 87.5 Estimated GFR > 60 POC Glucose 157 H 139 H Random Glucose 149 H Calcium 9.5 Microbiology Microbiology Results: Microbiology 01/31/21 00:46 Blood - Venous Blood Culture - Final No growth after 5 days. 01/31/21 00:47 Blood - Venous Blood Culture - Final No growth after 5 days. Procedures Date of Service Date of Service: 02/08/21 Assessment & Plan Assessment and plan (1) SMITHA (acute kidney injury): Status: Acute (2) Foot osteomyelitis, left: Status: Acute (3) Anemia: Status: Acute Assessment and Plan: kidney function better SMITHA due to vancomycin nephrotoxicity not consistent with snow infectious nephritis true clearance is also better than eGFR REC avoid nephrotoxins follow kidney function and electrolytes Time Spent With Patient Time: Total time spent is greater than 50% in coordination of care (as documented) at patient's floor/unit and/or counseling patient: Progress Note: Quality Stroke Does the patient have a stroke diagnosis?: No
[2021-02-08 10:33] LABS: Glucose, Whole Blood 169 mg/dL (60-115)
[2021-02-08 10:54] VITALS: BP 121/71; PULSE 71; RESP 18; TEMP 36.7; O2SAT 97
[2021-02-08 15:08] VITALS: BP 133/73; PULSE 78; RESP 20; TEMP 36; O2SAT 98
[2021-02-08 15:58] LABS: Glucose, Whole Blood 106 mg/dL (60-115)
[2021-02-08 19:38] VITALS: BP 138/72; PULSE 74; RESP 18; TEMP 36.6; O2SAT 96
[2021-02-08 20:30] LABS: Glucose, Whole Blood 202 mg/dL (60-115)
[2021-02-08] MEDS: Insulin Glargine,Hum.rec.anlog 100 UNIT/ML 10 ML VIAL 20 UNIT SUBCUT (20:45)
[2021-02-08 23:34] VITALS: BP 135/73; PULSE 79; RESP 18; TEMP 36.3; O2SAT 95
[2021-02-09 04:00] VITALS: BP 149/81; PULSE 73; RESP 18; TEMP 36.5; O2SAT 94
[2021-02-09 07:18] VITALS: BP 135/81; PULSE 76; RESP 18; TEMP 37; O2SAT 99
[2021-02-09 07:23] LABS: Glucose, Whole Blood 280 mg/dL (60-115)
[2021-02-09] MEDS: Insulin Lispro 100 UNIT/ML 3 ML VIAL SUBCUT ×5 (08:40→17:25)
[2021-02-09] MEDS: Gabapentin 600 MG TABLET PO ×4 (08:40→22:23)
[2021-02-09] MEDS: metFORMIN HCl 1,000 MG TABLET 1000 MG PO ×2 (08:40→17:25)
[2021-02-09] MEDS: 0.9 % Sodium Chloride Flush 3 ML SYRINGE IVFLUSH ×2 (08:41→17:25)
[2021-02-09 09:39] LABS: Anion Gap 15 (12-20); Blood Urea Nitrogen 16 mg/dL (9-16); Calcium 9.8 mg/dL (8.4-10.2); Carbon Dioxide 29 mmol/L (22-29); Chloride 100 mmol/L (96-108); Creatinine Clr Calc Pharmacy 74.2; Estimated Glomerular Filt Rate 55; Glucose Random 288 mg/dL (60-115); Potassium 5.6 mmol/L (3.3-5.1); Sodium 138 mmol/L (135-145)
--- NOTE | 2021-02-09 10:02 | PM.PNNEP ---
Subjective Subjective Date of Service: 02/09/21 Principal diagnosis: smitha Interval history: seen and examined denies any complaint Physical Exam Vital Signs: Vital Signs: Last Vital Signs Temp 98.6 F 02/09/21 07:18 Pulse 76 02/09/21 07:18 Resp 18 02/09/21 07:18 BP 135/81 02/09/21 07:18 Pulse Ox 99 02/09/21 07:18 Body Mass Index 25.2 Objective Data Labs CBC & Chem 7: 02/01/21 05:38 02/09/21 08:19 Labs: Laboratory Results - last 24 hr 02/08/21 02/08/21 02/08/21 10:25 15:49 20:23 Sodium Potassium Chloride Carbon Dioxide Anion Gap BUN Creatinine Estim Creat Clear Calc Estimated GFR POC Glucose 169 H 106 202 H Random Glucose Calcium 02/09/21 02/09/21 07:19 08:19 Sodium 138 Potassium 5.6 H Chloride 100 Carbon Dioxide 29 Anion Gap 15 BUN 16 Creatinine 1.45 H Estim Creat Clear Calc 74.2 Estimated GFR 55 POC Glucose 280 H Random Glucose 288 H D Calcium 9.8 Microbiology Microbiology Results: Microbiology 01/31/21 00:46 Blood - Venous Blood Culture - Final No growth after 5 days. 01/31/21 00:47 Blood - Venous Blood Culture - Final No growth after 5 days. Procedures Date of Service Date of Service: 02/09/21 Assessment & Plan Assessment and plan (1) SMITHA (acute kidney injury): Status: Acute Assessment and Plan: 1. CKD 3: c/w DN with Scr 1.2-1.5 range 2. HyperK 3. Anemia: Fe and epo def 4. ID: abx as noted REC: kelmo x1 this am; K restricted diet 2 gm; po Fe; aval for epo as outpt; will need f/u renal as outpt ( I will arrange) Time Spent With Patient Time: Total time spent is greater than 50% in coordination of care (as documented) at patient's floor/unit and/or counseling patient: Time with patient: Greater than 35 minutes Progress Note: Quality Stroke Does the patient have a stroke diagnosis?: No
[2021-02-09 11:05] LABS: Glucose, Whole Blood 166 mg/dL (60-115)
[2021-02-09 11:09] VITALS: BP 108/58; PULSE 78; RESP 18; TEMP 36.7; O2SAT 97
[2021-02-09] MEDS: Sodium Zirconium Cyclosilicate 10 GM POWD.PACK PO (12:14)
--- NOTE | 2021-02-09 12:47 | P.PNIM_ITS ---
Subjective Subjective Date of Service: 02/10/21 Interval History: F/u on osteomylitis, SMITHA, Creat is higher today, K is high Review of Systems Denies any new complaints including chest pain or shortness of breath or abdominal pain or any foot pain currently Or fever chills Physical Exam Vital Signs: Vital Signs: Last Vital Signs Temp 98.0 F 02/09/21 11:09 Pulse 78 02/09/21 11:09 Resp 18 02/09/21 11:09 BP 108/58 L 02/09/21 11:09 Pulse Ox 97 02/09/21 11:09 Body Mass Index 25.2 Const: General: comfortable and no acute distress Resp: Effort & Inspection: normal respiratory effort Cardio: Rate: regular rate Skin: Other: plantar wound looks better, there was some residual purulent material but with irrigation it all cleared out with my dressing change. finger inspection in wound does not reveal any undrained areas, no cellulitis of the foot. Extrem: Other: left foot transmetatarsal amputation stump - I and D site with packing, no residual fluctuance, no status, mild induration Objective Data Current Medications Generic Name Dose Route Start Last Admin Trade Name Freq PRN Reason Stop Dose Admin Acetaminophen 650 mg 01/31/21 02:49 Acetaminophen 325 Mg Tablet PO Q6H PRN Pain, Mild (Pain Scale 1-3) Gabapentin 600 mg 01/31/21 09:00 02/09/21 12:16 Gabapentin 600 Mg Tablet PO 600 mg QID [facility] Administration Heparin Sodium (Porcine) 5,000 unit 01/31/21 03:00 02/09/21 09:45 Heparin Sodium,Porcine 5,000 Unit/Ml Vial SUBCUT Not Given Q8H [facility] Insulin Glargine 20 unit 02/03/21 21:00 02/08/21 20:45 Insulin Glargine,Hum.Rec.Anlog 100 Unit/Ml 10 Ml Vial SUBCUT 20 unit BEDTIME [facility] Administration Insulin Human Lispro 0 unit 01/31/21 07:30 02/09/21 12:15 Insulin Lispro 100 Unit/Ml 3 Ml Vial SUBCUT Not Given QIDACHS [facility] Protocol Insulin Human Lispro 5 unit 02/02/21 16:30 02/09/21 12:14 Insulin Lispro 100 Unit/Ml 3 Ml Vial SUBCUT 5 unit TIDAC [facility] Administration Magnesium Hydroxide 30 ml 01/31/21 02:49 Milk Of Magnesia 30 Ml Oral.Susp PO DAILY PRN Constipation Melatonin 6 mg 01/31/21 02:49 Melatonin 3 Mg Tablet PO BEDTIME PRN Insomnia Metformin HCl 1,000 mg 01/31/21 17:00 02/09/21 08:40 Metformin Hcl 1,000 Mg Tablet PO 1,000 mg BIDWM [facility] Administration Methadone HCl 70 mg 01/31/21 12:00 02/09/21 09:44 Methadone Hcl 1 Mg/0.1 Ml Oral.Conc PO 70 mg DAILY [facility] Administration Sodium Chloride 3 ml 01/31/21 08:00 02/09/21 08:41 0.9 % Sodium Chloride Flush 3 Ml Syringe IVFLUSH 3 ml QSHIFT [facility] Administration Labs CBC & Chem 7: 02/01/21 05:38 02/10/21 08:31 Labs: Laboratory Results - last 24 hr 02/08/21 02/08/21 02/09/21 15:49 20:23 07:19 Anion Gap Estim Creat Clear Calc Estimated GFR POC Glucose 106 202 H 280 H Random Glucose Calcium 02/09/21 02/09/21 08:19 11:01 Anion Gap 15 Estim Creat Clear Calc 74.2 Estimated GFR 55 POC Glucose 166 H Random Glucose 288 H D Calcium 9.8 Assessment and Plan (1) Foot abscess, left: Status: Acute Assessment and Plan: 35-year-old male with a past medical history of diabetes, polysubstance abuse, opiate dependence on methadone, diabetic neuropathy, history of bilateral toe amputation, history of osteomyelitis presented to the hospital with a chief complaint of left heel ulcer with pain and discharge for 2 weeks; noted to have osteomyelitis.. Diabetic foot ulcer/Osteomylitis -s/p debridment by surgery - Zosyn, changed to Invanz at ne -ID recommends 6 weeks of IVanz -Midline placed SMITHA--likely pre renal vs Vanco toxicy, vanco stopped, IV, Nephrology following, Creatinin 1.45, slightly higher than yesterda Hyperkalemia--Received Lokelma x 1, recheck later today Diabetes--Insulin, Metformin, pre meal insulin, increased Lantus to 20 last night with better result Opioid dependence--methadone heparin for DVT prophylaxix Dispo--SNF for usp Abx by Tuesday Quality Stroke Does the patient have a stroke diagnosis?: No VTE Prior VTE?: No VTE Risk Level:: Medical - moderate - high VTE Device Contraindication: Treatment Not Indicated VTE Drug Contraindication: N/A - Med Ordered
--- NOTE | 2021-02-09 12:50 | MHC.CM.PN ---
Male 35 DX Heal ulcer Osteo. Discharge has been canceled r/t elevated Creatinine and K+. [facility] has been notified of the delay. CM will follow.
[2021-02-09 14:13] LABS: COVID-19 Test Negative (Negative)
[2021-02-09 15:02] VITALS: BP 101/64; PULSE 69; RESP 20; TEMP 36.4; O2SAT 99
[2021-02-09 16:02] LABS: Glucose, Whole Blood 182 mg/dL (60-115)
[2021-02-09 19:13] VITALS: BP 117/75; PULSE 78; RESP 20; TEMP 36.1; O2SAT 96
[2021-02-09 20:09] LABS: Glucose, Whole Blood 119 mg/dL (60-115)
--- NOTE | 2021-02-09 21:32 | P.CNID_ITS ---
History of Present Illness Data of Consult Service Date: 02/09/21 Requesting physician: Zachery Mckeon Primary Care Provider: Jose Manuel Alicea MD [facility] Reason for consult: left foot osteomyelitis He presents with worsening left foot odor with drainage He has no fever or chills He has had prior MRSA,Group B strep He has worsening creatinine with Vancomycin Review of Systems Review of Systems: Yes all other systems are reviewed and are negative PMFSH Past Medical History Medical History Anemia Diabetes Foot abscess, left History of substance use Non-healing ulcer of right foot Osteomyelitis Family History Family History Mother Breast cancer CVD (cardiovascular disease) Diabetes Cancer Father Diabetes CVD (cardiovascular disease) Family history: reviewed and not pertinent Surgical History Surgical History History of appendectomy History of carpal tunnel surgery of left wrist History 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 Social History Social History Household Members: Family Housing: Unknown / Unable to assess Housing Other:: patient states his belongings are in his truck Do you presently have visiting nurse or other home services: No Unable to assess alcohol history related to: Unknown Alcohol intake: unknown Patient Tobacco Use Status: Tobacco use Unknown Second Hand Smoke Exposure: No service: No Current occupational status: unemployed Meds Allergies Allergy/AdvReac Type Severity Reaction Status Date / Time No Known Allergies Allergy Verified 02/24/21 15:16 [No Known Allergies*] Active Medications: Current Medications Generic Name Dose Route Start Last Admin Trade Name Freq PRN Reason Stop Dose Admin Acetaminophen 650 mg 01/31/21 02:49 Acetaminophen 325 Mg Tablet PO Q6H PRN Pain, Mild (Pain Scale 1-3) Gabapentin 600 mg 01/31/21 09:00 02/09/21 17:25 Gabapentin 600 Mg Tablet PO 600 mg QID [facility] Administration Heparin Sodium (Porcine) 5,000 unit 01/31/21 03:00 02/09/21 17:20 Heparin Sodium,Porcine 5,000 Unit/Ml Vial SUBCUT Not Given Q8H [facility] Insulin Glargine 20 unit 02/03/21 21:00 02/08/21 20:45 Insulin Glargine,Hum.Rec.Anlog 100 Unit/Ml 10 Ml Vial SUBCUT 20 unit BEDTIME [facility] Administration Insulin Human Lispro 0 unit 01/31/21 07:30 02/09/21 17:25 Insulin Lispro 100 Unit/Ml 3 Ml Vial SUBCUT 2 unit QIDACHS [facility] Administration Protocol Insulin Human Lispro 5 unit 02/02/21 16:30 02/09/21 17:25 Insulin Lispro 100 Unit/Ml 3 Ml Vial SUBCUT 5 unit TIDAC [facility] Administration Magnesium Hydroxide 30 ml 01/31/21 02:49 Milk Of Magnesia 30 Ml Oral.Susp PO DAILY PRN Constipation Melatonin 6 mg 01/31/21 02:49 Melatonin 3 Mg Tablet PO BEDTIME PRN Insomnia Metformin HCl 1,000 mg 01/31/21 17:00 02/09/21 17:25 Metformin Hcl 1,000 Mg Tablet PO 1,000 mg BIDWM [facility] Administration Methadone HCl 70 mg 01/31/21 12:00 02/09/21 09:44 Methadone Hcl 1 Mg/0.1 Ml Oral.Conc PO 70 mg DAILY [facility] Administration Sodium Chloride 3 ml 01/31/21 08:00 02/09/21 17:25 0.9 % Sodium Chloride Flush 3 Ml Syringe IVFLUSH 3 ml QSHIFT [facility] Administration Home Medications Medication Instructions Recorded Confirmed Last Taken Type ferrous sulfate 325 mg (65 mg 325 mg PO DAILY 05/06/20 03/04/21 05/05/20 History iron) tablet gabapentin 600 mg tablet 600 mg PO QID 05/06/20 03/04/21 05/05/20 History insulin lispro 100 unit/mL 1 sliding scale dose SUBCUT 05/06/20 03/04/21 Unknown History subcutaneous solution (Admelog USEASDIRECTD U-100 Insulin lispro) metformin 500 mg tablet 1,000 mg PO BID 05/06/20 03/04/21 05/05/20 History methadone 70 mg PO DAILY 05/19/20 03/04/21 2 Days Ago History ~05/17/20 30 MG insulin glargine 100 unit/mL (3 20 unit SUBCUT BID 01/31/21 03/04/21 Unknown History mL) subcutaneous pen (Lazaroaglar Mika U-100 Insulin) Physical Exam Vital Signs: Vital Signs: Last Vital Signs Temp 96.9 F 02/09/21 19:13 Pulse 78 02/09/21 19:13 Resp 20 02/09/21 19:13 BP 117/75 02/09/21 19:13 Pulse Ox 96 02/09/21 19:13 Body Mass Index 25.2 Const: General: cooperative HENMT: Head: Yes normal to inspection Mouth: Normal oral and palatal mucosa present Eyes: General: appearance normal, both eyes and all related structures Resp: Effort & Inspection: normal respiratory effort Cardio: Rate: regular rate GI: Palpation (GI): Soft to palpation and nontender Extrem: Other: packed left transmetatarsal stump,no cellulitis Results Labs CBC & Chem 7: 02/01/21 05:38 02/10/21 08:31 Labs: BMP 02/09/21 08:19 Sodium 138 Potassium 5.6 H Chloride 100 Carbon Dioxide 29 BUN 16 Creatinine 1.45 H Calcium 9.8 Microbiology Microbiology Results: Microbiology 01/31/21 00:46 Blood - Venous Blood Culture - Final No growth after 5 days. 01/31/21 00:47 Blood - Venous Blood Culture - Final No growth after 5 days. Assessment and Plan (1) Diabetic infection of left foot: Status: Acute He has osteomyelitis There is no positive blood culture and no cultures at this point Ertapenem should work well as long as no MRSA expresses itself for six weeks He knows this is not cured but temporizing measaure (2) Foot osteomyelitis, left: Qualifiers: Osteomyelitis type: unspecified type Qualified Code(s): M86.9 - Osteomyelitis, unspecified Status: Acute
[2021-02-09] MEDS: Insulin Glargine,Hum.rec.anlog 100 UNIT/ML 10 ML VIAL 20 UNIT SUBCUT (22:22)
[2021-02-09 23:36] VITALS: BP 140/61; PULSE 83; RESP 18; TEMP 36.5; O2SAT 96
[2021-02-10] VITALS (7 sets, daily range): BP systolic 120–132; BP diastolic 63–76; PULSE 75–88; RESP 14–18; TEMP 35.9–36.4; O2SAT 95–97
[2021-02-10 07:28] LABS: Glucose, Whole Blood 152 mg/dL (60-115)
[2021-02-10] MEDS: metFORMIN HCl 1,000 MG TABLET 1000 MG PO ×2 (07:50→16:40)
[2021-02-10] MEDS: Gabapentin 600 MG TABLET PO ×4 (07:50→20:52)
[2021-02-10] MEDS: Insulin Lispro 100 UNIT/ML 3 ML VIAL SUBCUT ×6 (07:51→20:53)
[2021-02-10] MEDS: 0.9 % Sodium Chloride Flush 3 ML SYRINGE IVFLUSH ×2 (07:52→13:10)
[2021-02-10 09:13] LABS: Anion Gap 16 (12-20); Blood Urea Nitrogen 17 mg/dL (9-16); Calcium 9.8 mg/dL (8.4-10.2); Carbon Dioxide 28 mmol/L (22-29); Chloride 99 mmol/L (96-108); Estimated Glomerular Filt Rate 58; Glucose Random 158 mg/dL (60-115); Potassium 4.6 mmol/L (3.3-5.1); Sodium 138 mmol/L (135-145)
[2021-02-10 11:41] LABS: Glucose, Whole Blood 125 mg/dL (60-115)
--- NOTE | 2021-02-10 13:36 | MHC.CM.PN ---
ATTEMPTS TO SECURE [facility] BED. OF THIS NOTE, NO RESPONSE FROM [facility]. AUTHORIZATION WAS ATTEMPTED ON Tuesday02/06/21. OF THIS NOTE, IT IS UNCLEAR IF FACILITY SECURED ORIGINAL AUTH OR NOT, AND IF SO, DO THEY STILL HAVE AUTH TO ADMIT. ONCE ANSWER IS KNOWN, HAS TO CALL ARSALAN BROWN OF [facility] ([phone]) TO START THE PROCESS OF SCHEDULED DOSING AT FACILITY
[2021-02-10 16:33] LABS: Glucose, Whole Blood 193 mg/dL (60-115)
[2021-02-10 20:22] LABS: Glucose, Whole Blood 213 mg/dL (60-115)
[2021-02-10] MEDS: Insulin Glargine,Hum.rec.anlog 100 UNIT/ML 10 ML VIAL 20 UNIT SUBCUT (20:53)
[2021-02-11 04:00] VITALS: BP 126/67; PULSE 80; RESP 16; TEMP 36.4; O2SAT 97
[2021-02-11 07:44] VITALS: BP 127/75; PULSE 70; RESP 17; TEMP 36.3; O2SAT 97
[2021-02-11] MEDS: metFORMIN HCl 1,000 MG TABLET 1000 MG PO (07:52)
[2021-02-11] MEDS: Insulin Lispro 100 UNIT/ML 3 ML VIAL SUBCUT ×3 (07:53→11:42)
[2021-02-11] MEDS: Gabapentin 600 MG TABLET PO ×2 (07:53→12:55)
[2021-02-11] MEDS: 0.9 % Sodium Chloride Flush 3 ML SYRINGE IVFLUSH (07:53)
[2021-02-11 08:00] VITALS: BP 127/75; PULSE 99; RESP 17; TEMP 36.3; O2SAT 94
[2021-02-11 08:42] LABS: Glucose, Whole Blood 170 mg/dL (60-115)
[2021-02-11] MEDS: Ertapenem Sodium 1 GM in 0.9 % Sodium Chloride 50 ML IV (09:41)
--- NOTE | 2021-02-11 10:57 | PM.DS ---
DS: Providers Provider Date of Service: 02/11/21 Date of admission: 01/31/21 02:49 Primary care physician: Jose Manuel Alicea MD Consults: 01/31/21 02:47 Consult to General Surgery Routine Consulting Provider: Leonel Kang Reason for consultation: DM heel ulcer/osteomeylitis/Gas in soft tissue Consult to Infectious Diseases Routine Consulting Provider: Jacqueline Lira Reason for consultation: DM foot ulcer/osteomyelitis 01/31/21 02:51 Addiction Medicine Routine Consulting Provider: Radha Sewell Reason for consultation: Pt on methadone DS: Diagnosis Discharge Diagnosis (1) Foot osteomyelitis, left: Status: Acute (2) Diabetic infection of left foot: Status: Acute (3) Foot abscess, left: Status: Acute DS: Medications Discharge Medications Home Medications: Home Medications Medication Instructions Recorded Confirmed ferrous sulfate 325 mg (65 mg 325 mg PO DAILY 05/06/20 01/31/21 iron) tablet gabapentin 600 mg tablet 600 mg PO QID 05/06/20 01/31/21 insulin lispro 100 unit/mL 1 sliding scale dose SUBCUT 05/06/20 01/31/21 subcutaneous solution (Admelog USEASDIRECTD U-100 Insulin lispro) metformin 500 mg tablet 1,000 mg PO BID 05/06/20 01/31/21 methadone 70 mg PO DAILY 05/19/20 01/31/21 insulin glargine 100 unit/mL (3 20 unit SUBCUT BID 01/31/21 01/31/21 mL) subcutaneous pen (Basaglar KwikPen U-100 Insulin) Previous Rx's Medication Instructions Recorded oxycodone 5 mg tablet 5 mg PO Q6H PRN #14 tab 02/04/21 DS: Summary Hospital Course Hospital Course: Chief Complaint: Left heel ulcer 35-year-old male with a past medical history of diabetes, anemia, diabetic neuropathy, history of diabetic foot ulcer, history of bilateral toe amputations, history of osteomyelitis, substance abuse, opiate dependence on methadone presented to the hospital with a chief complaint of left heel ulcer with pain, difficulty ambulation, discharge for the past 2 weeks.? Patient denies any trauma.? Patient denies any chest pain or palpitations.? Denies any numbness tingling.? Denies any fever chills. ER course: Per ER team patient noted to have pus discharge from the left heel; left foot CT scan showed osteomyelitis as well as gas in the soft tissues-preservative in the setting of open ulcer; no evidence of necrosis; less concern for any necrotizing infection; given vanc and Zosyn.? Admitted to the hospital for further management. hospital course: Patient was admitted and given IV Vancomycin and IV Zosyn, cultures including blood cultures and wound have been negative. Wound was debrided by Surgeon Dr. Bearden, Infectious disease is recommending 6 weeks of IV Invanz uppon discharge. he will follow up with Dr. Bearden and Dr. Lira (infectious disease) Opioid dependence--to continue Methadone SMITHA on CKD---serum creatinin reached 1.42 on 01/16, at that time Vancomycin was discontinued and renal function decrease the next day and and presently Creatinine is 1.38 as of 02/09, he doesn't have chronic kidney disease of about stage 2 and slight increase likely pre renal state not vancomycin toxicity Diabetes--Continue Lantus (Doubled to 20--10 at home), Metformin, Sliding scale, Neuropathy--Gabapentin Time Spent with Patient Time attestation: Total time spent providing and/or coordinating discharge services: Discharge coordination time: Greater than 30 minutes Quality: Stroke Does the patient have a stroke diagnosis?: No Physical Exam Vital Signs: Vital Signs: Selected Entries 02/09/21 11:09 Temperature 98.0 F Pulse Rate 78 Respiratory Rate 18 Blood Pressure 108/58 L Pulse Oximetry 97 Oxygen Delivery Me thod Room Air Const: General: comfortable and no acute distress Resp: Effort & Inspection: normal respiratory effort Cardio: Rate: regular rate Skin: Other: plantar wound looks better, there was some residual purulent material but with irrigation it all cleared out with my dressing change. finger inspection in wound does not reveal any undrained areas, no cellulitis of the foot. Extrem: Other: left foot transmetatarsal amputation stump - I and D site with packing, no residual fluctuance, no status, mild induration DS: Data Data Completed and Pending Completed studies during hospitalization [Text1]: Procedures Detachment at Right Foot, Partial 1st Ray, Open Approach (05/06/20) Detachment at Right Foot, Partial 2nd Ray, Open Approach (05/06/20) Insertion of Infusion Device into Superior Vena Cava, Percutaneous Approach (05/17/20) Ultrasonography of Superior Vena Cava, Guidance (05/17/20) Discharge Plan Discharge Anticipated Discharge Date/Time: 02/11/21 10:45 Patient Disposition: Xfer SNF Discharge Diagnosis: osteomylitis Referrals: Jose Manuel Alicea MD [Primary Care Provider] - 1 Week Discharge Medications: New oxycodone 5 mg tablet 5 mg PO Q6H PRN (Reason: pain (scale score 7-10)) Qty: 14 RF: 0 ertapenem [Invanz] 1 gram recon soln 1 g IV Q24H Qty: 41 RF: 0 Continued ferrous sulfate 325 mg (65 mg iron) Tablet 325 mg PO DAILY RF: 0 metformin 500 mg Tablet 1,000 mg PO BID RF: 0 gabapentin 600 mg Tablet 600 mg PO QID RF: 0 insulin lispro [Admelog U-100 Insulin lispro] 100 unit/mL Solution 1 sliding scale dose SUBCUT USEASDIRECTD RF: 0 methadone 30 MG tablet 70 mg PO DAILY RF: 0 Basaglar KwikPen U-100 Insulin 100 unit/mL (3 mL) insulin pen 20 unit subcut BID RF: 0 Discharge Orders: Discharge Order (Routine); Ordered 02/11/21 Ordered By: Zachery Mckeon Diet: advance to usual diet and diabetic diet Activity on Discharge: Walk with crutches Stand Alone Forms: Patient Portal Discharge page Care Plan Goals: Healing of osteomylitis Health Concerns: Diabetic foot ulcer, osteomyltis Plan of Treatment: Take Invanz for 6 weeks, follow up with Dr. Lira and Dr. bearden Assessment: as above
[2021-02-11 11:28] VITALS: BP 122/71; PULSE 76; RESP 17; TEMP 36.4; O2SAT 96
--- NOTE | 2021-02-11 11:33 | MHC.CM.PN ---
PATIENT IS DC TO [facility] TODAY FOR [facility] TO [facility]SP[facility]. RN AND UNIT AWARE OF PLAN.
[2021-02-11 12:00] VITALS: BP 122/71; PULSE 76; RESP 17; TEMP 36.4; O2SAT 96
[2021-02-11 13:16] LABS: Glucose, Whole Blood 107 mg/dL (60-115)
== END 2021-02-11 13:34 | disposition skilled nursing facility (03) | DRG 344 ==
LOC: HO.ED 01-31 02:48 → HO.EDOVER 01-31 03:02 → HO.IMC 01-31 06:04 → HO.S3 02-10 07:16
PROVIDERS: Internal Medicine; Internal Medicine Nephrology; Admitting Provider Hospitalist; Emergency Provider Emergency Medicine; PCP Internal Medicine; Visit Provider Internal Medicine
DX: E11.69 Type 2 diabetes mellitus with other specified complication (principal); M86.9 Osteomyelitis, unspecified; N17.0 Acute kidney failure with tubular necrosis; E11.621 Type 2 diabetes mellitus with foot ulcer; E11.42 Type 2 diabetes mellitus with diabetic polyneuropathy; F11.20 Opioid dependence, uncomplicated; E11.22 Type 2 diabetes mellitus with diabetic chronic kidney disease; E87.5 Hyperkalemia; L02.612 Cutaneous abscess of left foot; N18.2 Chronic kidney disease, stage 2 (mild); L97.426 Non-pressure chronic ulcer of left heel and midfoot with bone involvement without evidence of necrosis; N14.1 Nephropathy induced by other drugs, medicaments and biological substances; T36.8X5A Adverse effect of other systemic antibiotics, initial encounter; Y92.9 Unspecified place or not applicable; Z20.822 Contact with and (suspected) exposure to COVID-19; Z79.4 Long term (current) use of insulin; Z79.899 Other long term (current) drug therapy
CPT/HCPCS: 36410; 36415; 73060; 73701; 80048; 80076; 80202; 81001; 82565; 82607; 82728; 82746; 82947; 83540; 83605; 84156; 84300; 85025; 85027; 87040; 87635; 94640; 99222; 99285; J1335; J2543; J3370; Q9967

== ENCOUNTER → 2021-02-24 14:58 | Outpatient (BNVA) | payer OTHER, SELFPAY | PROVIDERS: PCP Internal Medicine; Visit Provider Internal Medicine | DX: L02.612 Cutaneous abscess of left foot (principal) | CPT/HCPCS: 99212 ==

== ENCOUNTER → 2021-03-04 11:09 | Outpatient (BNVA) | payer OTHER, SELFPAY | PROVIDERS: PCP Internal Medicine; Referring Provider Internal Medicine; Visit Provider Surgery | DX: E11.65 Type 2 diabetes mellitus with hyperglycemia (principal); E11.621 Type 2 diabetes mellitus with foot ulcer; E11.69 Type 2 diabetes mellitus with other specified complication; M86.9 Osteomyelitis, unspecified; Z79.4 Long term (current) use of insulin; Z79.891 Long term (current) use of opiate analgesic; Z79.899 Other long term (current) drug therapy | CPT/HCPCS: 99212 ==

== ENCOUNTER → 2021-03-10 13:39 | Outpatient (BNVA) | payer OTHER, SELFPAY | PROVIDERS: PCP Internal Medicine; Visit Provider Internal Medicine | DX: E11.621 Type 2 diabetes mellitus with foot ulcer (principal); E11.65 Type 2 diabetes mellitus with hyperglycemia; L02.612 Cutaneous abscess of left foot; M86.9 Osteomyelitis, unspecified; Z89.432 Acquired absence of left foot | CPT/HCPCS: 99212 ==

== ENCOUNTER 2021-06-16 12:54 | Outpatient (RCR) | payer OTHER, SELFPAY | END 2021-08-24 15:35 | disposition home or self-care (01) | LOC: HO.WCC 12:54 | PROVIDERS: PCP Internal Medicine; Visit Provider Physician Assistant | DX: E11.621 Type 2 diabetes mellitus with foot ulcer (principal); L97.522 Non-pressure chronic ulcer of other part of left foot with fat layer exposed; L97.526 Non-pressure chronic ulcer of other part of left foot with bone involvement without evidence of necrosis; E11.40 Type 2 diabetes mellitus with diabetic neuropathy, unspecified; F17.210 Nicotine dependence, cigarettes, uncomplicated; Z89.412 Acquired absence of left great toe; Z89.422 Acquired absence of other left toe(s); Z89.421 Acquired absence of other right toe(s); Z79.4 Long term (current) use of insulin; Z79.84 Long term (current) use of oral hypoglycemic drugs; Z79.899 Other long term (current) drug therapy; Z79.2 Long term (current) use of antibiotics | CPT/HCPCS: 11042; 11044; 20245; 87071; 87073; 87076; 87077; 87185; 87186; 87205; 88304; 88305; 88311 ==

== ENCOUNTER 2021-06-25 20:31 | Emergency (ER) | payer OTHER, SELFPAY ==
--- NOTE | ~2021-06-25 | XR_ITS ---
EXAMINATION: XR ANKLE, LEFT CLINICAL INFORMATION: Possible fracture COMPARISON: None TECHNIQUE: AP, lateral, and mortise views of the left ankle. FINDINGS: Mild diffuse soft tissue swelling. Underlying bony structures do not demonstrate any acute fracture or dislocation. No bony destructive lesions or acute periosteal reaction. Postoperative changes are seen in the foot from midfoot dictation. XR/XR ankle LT min 3V IMPRESSION: Soft tissue swelling but no acute bony abnormalities.
[2021-06-25 20:34] VITALS: BP 114/62; PULSE 86; RESP 20; TEMP 36.6; O2SAT 97; BMI 25.1
[2021-06-25 22:40] VITALS: BP 101/58; PULSE 80; RESP 17; TEMP 36.7; O2SAT 97
--- NOTE | 2021-06-26 00:42 | ED_ITS ---
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 Patient declined any head or neck injury, no LOC, no injury anywhere else in the body. Related Data Home Medications Medication Instructions Recorded Confirmed ferrous sulfate 325 mg (65 mg 325 mg PO DAILY 05/06/20 03/04/21 iron) tablet gabapentin 600 mg tablet 600 mg PO QID 05/06/20 03/04/21 insulin lispro 100 unit/mL 1 sliding scale dose SUBCUT 05/06/20 03/04/21 subcutaneous solution (Admelog USEASDIRECTD U-100 Insulin lispro) metformin 500 mg tablet 1,000 mg PO BID 05/06/20 03/04/21 methadone 70 mg PO DAILY 05/19/20 03/04/21 insulin glargine 100 unit/mL (3 20 unit SUBCUT BID 01/31/21 03/04/21 mL) subcutaneous pen (Basaglar KwikPen U-100 Insulin) Previous Rx's Medication Instructions Recorded ertapenem 1 gram solution for 1 g IV Q24H #41 ea 02/04/21 injection (Invanz) doxycycline hyclate 100 mg capsule 100 mg PO BID 30 Days #60 cap 03/10/21 doxycycline hyclate 100 mg tablet 100 mg PO BID 30 Days #60 tab 03/11/21 Allergies Allergy/AdvReac Type Severity Reaction Status Date / Time No Known Allergies Allergy Verified 02/24/21 15:16 [No Known Allergies*] Review of Systems Review of Systems: All other systems are reviewed and are negative Constitutional: Reports as per HPI and Reports no additional constitutional complaints Eyes: Reports as per HPI and Reports no additional eye complaints Reports system reviewed and no additional complaints, except as documented Cardiovascular: Reports as per HPI and Reports no additional cardiovascular complaints Respiratory: Reports as per HPI and Reports no additional respiratory complaints Gastrointestinal: Reports as per HPI and Reports no additional gastrointestinal complaints Genitourinary: Reports no additional female genitourinary complaints Musculoskeletal: Reports no additional musculoskeletal complaints Skin/Breast: Reports system reviewed and no additional complaints, except as docu Psychiatric: Reports no additional psychiatric complaints Endocrine: Reports no additional endocrine complaints Hematologic/Lymphatic: Reports no additional hematologic/lymphatic complaints Allergic/Immunologic: Reports no additional allergic/immunologic complaints Reports system reviewed and no additional complaints, except as documented and Reports Abnormal speech present [facility] Past Medical History Medical History Anemia Diabetes Foot abscess, left History of substance use Non-healing ulcer of right foot Osteomyelitis Surgical History History of appendectomy History of carpal tunnel surgery of left wrist History 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 Family History Family History Mother Breast cancer CVD (cardiovascular disease) Diabetes Cancer Father Diabetes CVD (cardiovascular disease) Social History Social History Household Members: Family Housing: Unknown / Unable to assess Housing Other:: patient states his belongings are in his truck Do you presently have visiting nurse or other home services: No Unable to assess alcohol history related to: Unknown Alcohol intake: unknown Patient Tobacco Use Status: Tobacco use Unknown Second Hand Smoke Exposure: No Advance Directives: No service: No Current occupational status: unemployed Physical Exam Vital Signs: Vital Signs: Last Vital Signs Temp 98.1 F 06/25/21 22:40 Pulse 80 06/25/21 22:40 Resp 17 06/25/21 22:40 BP 101/58 L 06/25/21 22:40 Pulse Ox 97 06/25/21 22:40 BMI result Body Mass Index 25.1 vital signs have been reviewed as appeared to be correct. Blood pressure normal. Heart rate normal. Respiration rate normal. Temperature normal. Oxygen saturation normal. Appearance: Alert. Oriented X3. No acute distress. Head: Normal external exam. Normocephalic. Atraumatic. No Mcadams signs noted. No raccoon eyes noted Eyes: PERRLA. EOMI. Conjunctiva and sclera normal. Eyelids normal. ENT: TM's Normal. Pharynx normal. Uvula midline. Moist mucous membranes. No trismus noted. No drooling noted. No muffled voice noted. Neck: Normal inspection. Neck supple. FROM. No adenopathy. Thyroid Normal. No meningeal signs. No neck mass noted. CVS: Normal heart rate and rhythm. Heart sound normal. No murmurs noted. Pulses normal throughout. Respiratory: No respiratory distress. Painless inspiration. Breath sounds normal. No wheezes/rales/rhonchi noted. Chest nontender. No accessory muscle usage noted or decreased air movement noted. Abdomen: Soft and nontender. Bowel sounds normal in all 4 quadrants. No distention noted. No organomegaly noted. No visible injury noted. Back: No CVA tenderness. Full range of motion noted. Skin: Skin warm and dry. Normal skin color. Normal skin turgor. No rashes/lesions/lacerations noted. Extremities: Left foot metatarsophalangeal amputation, left ankle mildly tender, no swelling, no deformity. Neuro: Oriented X 3. Cranial nerve exam: II-XII are grossly intact No motor deficit. No sensory deficit. Reflexes normal. Course Course Course Narrative: Assessment and plan. Left ankle sprain, no x-ray evidence of fracture, patient was offered crutches but he declined in because stated he will be very unsteady with the metatarsophalangeal amputation he is already have. MDM - Extremity Injury (Lower) Medical Records Attestation: I reviewed the patient's medical records. Imaging Data Left ankle x-ray: Attestation: I personally reviewed and interpreted this imaging study as follows: Radiologist's impression: soft tissue swelling but no acute bony abnormalities. Discharge Plan Discharge Clinical Impression: Left ankle sprain Patient Disposition: Home, Self-Care Instructions: Ankle Sprain (ED) Prescriptions: No Action ferrous sulfate 325 mg (65 mg iron) Tablet 325 mg PO DAILY RF: 0 metformin 500 mg Tablet 1,000 mg PO BID RF: 0 gabapentin 600 mg Tablet 600 mg PO QID RF: 0 insulin lispro [Admelog U-100 Insulin lispro] 100 unit/mL Solution 1 sliding scale dose SUBCUT USEASDIRECTD RF: 0 methadone 30 MG tablet 70 mg PO DAILY RF: 0 Basaglar KwikPen U-100 Insulin 100 unit/mL (3 mL) insulin pen 20 unit subcut BID RF: 0 ertapenem [Invanz] 1 gram recon soln 1 g IV Q24H Qty: 41 RF: 0 doxycycline hyclate 100 mg capsule 100 mg PO BID 30 Days Qty: 60 RF: 1 doxycycline hyclate 100 mg tablet 100 mg PO BID 30 Days Qty: 60 RF: 1 Referrals: Devon Bowers MD [Physician] - 1 week Jose Manuel Alicea MD [Primary Care Provider] - 2 days
== END 2021-06-26 00:56 | disposition home or self-care (01) ==
PROVIDERS: Emergency Provider Emergency Medicine; PCP Internal Medicine
DX: S93.402A Sprain of unspecified ligament of left ankle, initial encounter (principal); W17.89XA Other fall from one level to another, initial encounter; E11.9 Type 2 diabetes mellitus without complications; Y93.9 Activity, unspecified; Y92.009 Unspecified place in unspecified non-institutional (private) residence as the place of occurrence of the external cause; Y99.9 Unspecified external cause status; Z89.439 Acquired absence of unspecified foot; Z79.4 Long term (current) use of insulin
CPT/HCPCS: 73610; 99283; 99284

== ENCOUNTER 2021-07-01 11:01 | Outpatient (REF) | payer OTHER, SELFPAY ==
[2021-07-01 11:58] LABS: COVID-19 Test Negative (Negative); IDNOW Serial# 16C4AD1C
== END 2021-07-01 11:02 | disposition home or self-care (01) ==
LOC: HO.LAB 11:01
PROVIDERS: Visit Provider Internal Medicine
DX: Z20.822 Contact with and (suspected) exposure to COVID-19 (principal)
CPT/HCPCS: 36415; 87635; C9803

== ENCOUNTER 2021-07-02 09:05 | Outpatient (REF) | payer OTHER, SELFPAY | END 2021-07-02 09:06 | disposition home or self-care (01) | LOC: HO.LAB 09:05 | PROVIDERS: Visit Provider Internal Medicine | DX: Z13.89 Encounter for screening for other disorder (principal) ==

== ENCOUNTER 2021-08-04 21:20 | Inpatient (IN) | payer OTHER, SELFPAY ==
--- NOTE | ~2021-08-04 | US_ITS ---
EXAMINATION: US VENOUS ULTRASOUND WITH DOPPLER LOWER EXTREMITY, LEFT CLINICAL INFORMATION: Left leg swelling 07/31/2019 COMPARISON: None TECHNIQUE: Ultrasound of the deep veins is performed from the hip to the calf with compression sonography and color and pulse Doppler assessment. Spectral analysis with color-flow imaging is performed. FINDINGS: There is normal venous compression and respiratory variation and augmented flow. The visualized common femoral vein, superficial femoral vein, profunda femoral vein, popliteal vein, and the trifurcation region shows no evidence of deep venous thrombosis. There is no significant popliteal fossa cyst. Enlarged inguinal lymph nodes are seen in the left groin. If the patient's symptoms persist, followup ultrasound in 5 days 7 days might be of value to exclude proximal propagation from a non-visualized calf vein. US/US venous duplex LE LT IMPRESSION: No DVT demonstrated in the left lower extremity. Enlarged left inguinal lymph nodes.
--- NOTE | ~2021-08-04 | XR_ITS ---
EXAMINATION: XR FOOT, LEFT CLINICAL INFORMATION: Diabetic ulcer COMPARISON: 06/25/2021 TECHNIQUE: AP, lateral, and oblique views of the left foot. FINDINGS: Patient is status post midfoot amputation onward. Chronic bony deformity seen to the remaining tarsal bones there is subtle lucency along the lateral aspect of the tarsal bones when compared to the prior study. This is more than would be expected for bony remodeling alone. Ankle mortise appears intact. Diffuse soft tissue swelling no radiopaque foreign body. Small calcaneal heel spur incidentally noted. XR/XR foot LT min 3V IMPRESSION: Chronic appearing postoperative and degenerative remodeling changes seen. There is a subtle lucency laterally in the tarsal bones which had more normal trabeculations on the prior study. Subtle erosive changes within the lateral bone cannot be excluded. MRI foot would be helpful to evaluate this further. Osteomyelitis cannot be excluded.
--- NOTE | ~2021-08-04 | US_ITS ---
EXAMINATION: NONINVASIVE ASSESSMENT OF THE ARTERIES OF THE LEFT LOWER EXTREMITY Landry Red MD CLINICAL INFORMATION: Osteomyelitis TECHNIQUE: Left lower extremity duplex ultrasound was performed with velocity measurements and waveform analysis in the common femoral arteries, profunda femoris arteries, proximal mid and distal superficial femoral arteries, popliteal arteries and tibial vessels. This study was performed only at rest. COMPARISON: Arterial duplex 08/11/2018 and 11/08/2019 FINDINGS: Velocities in cm/sec and phasicity as well as the presence of plaque are reported below. LEFT LEG: Monophasic flow is present for the most part throughout the lower extremity worrisome for inflow disease. There has been a dramatic change in the waveform when compared to the prior study from 11/08/2019 waveforms were multiphasic throughout. Plaque formation is present in the distal femoral artery as well as popliteal and tibial vessels. Velocity elevations the SFA and popliteal suggesting more focal stenoses in these areas. Common Femoral: 136 Profunda Femoris: 123 Proximal SFA: 147 Mid SFA: 162 Distal SFA: 153 Popliteal: 163 Tibial: 148 A large groin lymph node is present measuring 3.8 x 1.9 x 2.8 cm. US/US arterial duplex LE LT IMPRESSION: There is evidence of peripheral vascular disease with monophasic flow throughout. There has been a significant change in the appearance of waveforms when compared to 11/08/2019 study. Because of this, CT angiography is recommended for further evaluation to evaluate for the presence of inflow disease. More focal stenotic disease is present in the distal SFA popliteal artery and tibial vessels.
--- NOTE | ~2021-08-04 | CT_ITS ---
EXAMINATION: CT ANGIOGRAM LOWER EXTREMITY, LEFT CLINICAL INFORMATION: Osteomyelitis COMPARISON: Ultrasound from 08/04/2021. CT of the foot from 01/31/2021. TECHNIQUE: Multidetector volumetric imaging of the left lower extremity performed after administration of 80 mL of Omnipaque 350 IV contrast. Coronal, sagittal, and MIP reformatted images are obtained on the technologist workstation under concurrent radiologist supervision. This CT examination was performed using dose optimization techniques as appropriate, variously including the following: *Automated exposure control *Adjustment of mA and/or kV according to patient size (this includes techniques or standardized protocols for targeted exams where dose is matched to indication/reason for exam; i.e. extremities or head) *Use of iterative reconstruction technique DLP: 334 mGy-cm FINDINGS: The visualized portion of the left common iliac artery is normal. The left internal and external iliac arteries are normal. The left common femoral artery is normal. The profunda femoral and superficial femoral arteries are normal. The popliteal artery is normal. Normal 3 vessel runoff into the ankle. Prominent lymph nodes are seen along the left iliac chain. Prominent left inguinal lymph nodes as well. For instance there is an iliac chain node measuring 1.8 cm short axis on series 5 image 29. Superficial edema anterior and lateral to the knee. Edema extends distally, prominent throughout the ankle with circumferential skin thickening. Prominent edema within the foot. The patient is status post transmetatarsal amputation. Osteopenia throughout the foot. Destructive appearance at the talonavicular joint with impaction and osseous fragmentation. This is a change from the prior CT. It is the navicular bone that is most fragmented, with impaction of the talus abutting the medial cuneiform. There is also a fracture along the lateral aspect of the talus. There is also fragmentation of the anterior process of the calcaneus. Erosion involving the plantar aspect of the cuboid. The knee is appropriately aligned. Small joint effusion. The hip is appropriately aligned. CT/CT angio LE LT IMPRESSION: 1. No acute vascular abnormality. No areas of stenosis identified. 2. Chronic amputation of the foot. Multiple destructive changes are new from 01/31/2021. These could be acute. This includes fractures involving the talus, calcaneus, and navicular. 3. Erosive appearance involving the cuboid, concerning for osteomyelitis. MRI would be useful to better evaluate if clinically indicated.
--- NOTE | ~2021-08-04 | MR_ITS ---
EXAMINATION: MRI FOOT WITHOUT AND WITH CONTRAST, LEFT CLINICAL INFORMATION: Ulcer. Evaluate for osteomyelitis. COMPARISON: Most recent lower extremity CTA dated 08/05/2021. Most recent left foot MRI dated 05/29/2019. TECHNIQUE: Multisequence MR imaging of the left foot was obtained before and after the administration of 8.5 mL Gadavist IV contrast on a high-field strength scanner. FINDINGS: Evaluation limited secondary to patient motion. There is diffuse increased T2 signal throughout the remaining tarsal bones including the talus, navicula, cuboid, cuneiforms, calcaneus, and remnant metatarsals. Additionally, there is increased T2 signal in a more patchy pattern within the distal tibia and fibula. Within these areas there is associated decreased T1 marrow signal as well as postcontrast marrow enhancement. Findings are consistent with diffuse osteomyelitis. There is a small tibiotalar joint effusion as well as a trace posterior subtalar joint effusion with synovial enhancement, concerning for septic arthritis. No fracture. No dislocation. Circumferential subcutaneous edema. No abnormal soft tissue mass or abscess formation. Evaluation of the soft tissues along the ventral aspect of the foot are limited due to artifact. MR/MR foot LT wo/w con IMPRESSION: Diffuse osteomyelitis throughout the tarsal bones including the talus, calcaneus, cuboid, cuneiforms, and remnant metatarsals. More mild osteoarthritis within the distal tibia and fibula. Small tibiotalar and trace posterior subtalar joint effusions with synovial enhancement, consistent with septic arthritis. Findings have significantly increased when compared to prior examinations.
[2021-08-04 21:26] VITALS: BP 160/73; PULSE 107; RESP 20; TEMP 37.7; O2SAT 98; BMI 25.1
[2021-08-04 21:51] LABS: MANUAL DIFF FLAG NO
[2021-08-04 21:54] LABS: Basophils Percent Auto 0.1 % (0-2); Eosinophils Absolute Auto 0.1 X10*3/uL (0.0-0.4); Eosinophils Percent Auto 0.8 % (0-4); Hematocrit 25.1 % (42.0-52.0); Hemoglobin 8.1 g/dl (14.0-18.0); Imm Gran Abs Auto 0.03 X10*3/uL (0.00-0.03); Imm Gran Pct Auto 0.4 % (0.0-0.4); Lymphocytes Percent Auto 13.3 % (20-40); Mean Corpuscular HGB Conc 32.3 g/dl (31.0-36.0); Mean Corpuscular Hemoglobin 27.4 pg (27.0-33.0); Mean Corpuscular Volume 84.8 fL (80.0-98.0); Mean Platelet Volume 9.4 fL (9.4-12.4); Monocytes Absolute Auto 0.6 X10*3/uL (0.1-1.2); Monocytes Percent Auto 8.8 % (2-11); Neutrophils Absolute Auto 5.5 x10*3/uL (2.0-8.3); Neutrophils Percent Auto 76.6 % (45-73); Platelet Count 315 X10*3/uL (160-400); Red Blood Count 2.96 X10*6/uL (4.60-5.80); White Blood Count 7.2 X10*3/uL (4.8-10.8)
[2021-08-04 22:11] LABS: COVID-19 Test Negative (Negative)
[2021-08-04 22:14] LABS: Anion Gap 19 (12-20); Blood Urea Nitrogen 18 mg/dL (9-16); Carbon Dioxide 26 mmol/L (22-29); Chloride 95 mmol/L (96-108); Creatinine Clr Calc Pharmacy 79.6; Estimated Glomerular Filt Rate 60; Glucose Random 364 mg/dL (60-115); Potassium 4.7 mmol/L (3.3-5.1); Sodium 135 mmol/L (135-145)
[2021-08-04 22:15] LABS: Lactic Acid 2.7 mmol/L (0.5-2.0)
[2021-08-04 22:24] VITALS: BP 150/70; PULSE 99; RESP 15; TEMP 38.4; O2SAT 97
--- NOTE | 2021-08-04 22:29 | ED_ITS ---
HPI - Skin/Abscess/Foreign Bdy General Chief complaint: Skin/Abscess/Foreign Body Stated complaint: diabetic, foot is swollen Source: patient Mode of arrival: ambulatory Limitations: no limitations History of Present Illness HPI narrative: 36-year-old presents with 1 week of left lower extremity pain and swelling which increases with ambulation. Does have a chronic foot ulcer that has been treated by Wound Care at this facility. States to feel tired but denies fevers and chills at this time. MD complaint: other (Chronic foot wound) Onset (ago): year(s) Tetanus up to date: yes Location: L foot Severity: severe Severity scale (1-10): 10 Quality: aching and constant Pain Consistency: constant Relieving factors: none Exacerbating factors: movement Associated symptoms: malaise Related Data Home Medications Medication Instructions Recorded Confirmed ferrous sulfate 325 mg (65 325 mg PO DAILY 05/06/20 08/04/21 mg iron) tablet gabapentin 600 mg tablet 600 mg PO TID 05/06/20 08/04/21 insulin lispro 100 unit/mL 1 sliding scale dose SUBCUT 05/06/20 08/04/21 QID subcutaneous solution (Admelog U-100 Insulin lispro) metformin 500 mg tablet 1,000 mg PO BID 05/06/20 08/04/21 insulin glargine 100 unit/mL 20 unit SUBCUT BID 08/04/21 08/04/21 (3 mL) subcutaneous pen (Lantus Solostar U-100 Insulin) Allergies Allergy/AdvReac Type Severity Reaction Status Date / Time No Known Allergies Allergy Verified 08/04/21 21:26 [No Known Allergies*] Review of Systems Verdana 4l Review of Systems: Verdana 4d Verdana 4d Constitutional: No Fever, No Chills, positive fatigue ENT/Mouth: No Ear Pain, No Hoarseness, No sore throat Eyes: No Eye Pain, No Swelling, No Redness, No Foreign Body Cardiovascular: No Chest Pain, No SOB Respiratory: No Cough, No DyspneaDyspnea Gastrointestinal: No Nausea, No Vomiting, No Diarrhea, No abdominal Pain Genitourinary: No Dysuria, No Hematuria Musculoskeletal: positive left foot pain, positive left lower extremity swelling, No Myalgias, No Joint Swelling Skin: No Skin lacerations, No rash Neuro: No Weakness, No Numbness, No Paresthesias, No Loss of Consciousness, No Dizziness, No Headache Psych: No Anxiety/Panic, No Depression Heme/Lymph: no easy bruising, no Lymphadenopathy Endocrine: No Polyuria, No Polydipsia Yes all other systems are reviewed and are negative [facility] Past Medical History Attestation statement: The following information was validated with the patient. Source: old records reviewed Medical History Anemia Diabetes Foot abscess, left History of substance use Non-healing ulcer of right foot Osteomyelitis Surgical History History of appendectomy History of carpal tunnel surgery of left wrist History 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 Family History Family History Mother Breast cancer CVD (cardiovascular disease) Diabetes Cancer Father Diabetes CVD (cardiovascular disease) Social History Social History Household Members: Family Housing: Unknown / Unable to assess Housing Other:: patient states his belongings are in his truck Do you presently have visiting nurse or other home services: No Unable to assess alcohol history related to: Unknown Alcohol intake: unknown Patient Tobacco Use Status: Tobacco use Unknown Second Hand Smoke Exposure: No Advance Directives: No Advance Directives Information Provided: Yes service: No Current occupational status: unemployed Physical Exam Verdana 4l Vital Signs: Verdana 4d Verdana 4d Vital Signs: Verdana 4d Verdana 4Bd Last Vital Signs Verdana 4d Seismic Engineer New 4d Seismic Engineer New 4d Temp 99.6 F 08/04/21 23:28 Seismic Engineer New 4d Pulse 94 08/05/21 00:23 Seismic Engineer NewNew 4d Resp 16 08/05/21 00:23 BP 127/61 08/05/21 00:23 Pulse Ox 96 08/05/21 00:23 BMI result Body Mass Index 25.1 Appearance: Alert. Oriented X3. No acute distress. Eyes: Pupils equal, round and reactive to light. ENT: Pharynx normal. Neck: Normal inspection. Neck supple. CVS: Tachycardic heart rate and rhythm. Pulses normal. Respiratory: No respiratory distress. Breath sounds normal. Abdomen: Soft and nontender. Skin: Skin warm and dry. Normal skin color. Normal skin turgor. Extremities: Left lower extremity swelling with tenderness to palpation. Bilateral toe amp to both feet. Chronic wound to left lower extremity. Neuro: No motor deficit. No sensory deficit. Cranial nerves 2-12 intact. Course Course Course Narrative: 36-year-old male presents with left lower extremity chronic wound with swelling and pain for approximately 1 week. Patient does have a high suspicion for osteomyelitis, has had osteo in the past. Has had multiple amputations and does not have any toes to both feet. Review of records from Infectious Disease reports that patient has been on IV antibiotics and dox ycycline in the for recurrent wounds and osteomyelitis. Will order ceftriaxone, vancomycin, repeat lactic acid, resuscitate with fluids at 2 L. While patient does have suspicion for infection, I do not feel that patient is septic this time. 10:30 p.m. lactic acid is 2.7, patient does have an elevated glucose of 364 which will be corrected with 10 insulin, patient does take metformin which could be a possibility for his elevated lactic acidosis. I do not feel patient is septic. H&H is 8.1/25.1 which is consistent with prior values dating back to 2019. Acetone is negative. COVID test is negative. 11:00 p.m. x-ray indicates osteo. Duplex and arteriogram pending. 11:40 p.m. arteriogram shows significant change of appearance of waveforms when compared to study in October 2019. CT angio is recommended for this patient. Midnight. Discussion with hospitalist regarding plan to admit for osteomyelitis. Consultations Consultation #1: Wilbert Time: 00:00 MDM - Skin/Abscess/Foreign Bdy MDM Narrative Medical decision making narrative: Osteomyelitis Differential Diagnosis Differential diagnosis: Likely abscess of skin or subcutaneous tissue and cellulitis Medical Records Attestation: I reviewed the patient's medical records. Lab Data Attestation: I reviewed the patient's lab results. Result diagrams: 08/04/21 21:41 08/04/21 21:41 Labs: Lab Results 08/04/21 08/04/21 08/04/21 Range/Units 21:41 21:41 21:41 WBC 7.2 (4.8-10.8) X10*3/uL RBC 2.96 L (4.60-5.80) X10*6/uL Hgb 8.1 L (14.0-18.0) g/dl Hct 25.1 L (42.0-52.0) % MCV 84.8 (80.0-98.0) fL MCH 27.4 (27.0-33.0) pg MCHC 32.3 (31.0-36.0) g/dl RDW 13.0 (11.0-16.0) % Plt Count 315 (160-400) X10*3/uL MPV 9.4 (9.4-12.4) fL Immature Gran % (Auto) 0.4 (0.0-0.4) % Neut % (Auto) 76.6 H (45-73) % Lymph % (Auto) 13.3 L (20-40) % [place] % (Auto) 8.8 (2-11) % Eos % (Auto) 0.8 (0-4) % Baso % (Auto) 0.1 (0-2) % Lymph # (Auto) 1.0 L (1.2-4.9) X10*3/uL [place] # (Auto) 0.6 (0.1-1.2) X10*3/uL Eos # (Auto) 0.1 (0.0-0.4) X10*3/uL Baso # (Auto) 0.0 (0.0-0.2) X10*3/uL Abs Immat Gran (auto) 0.03 (0.00-0.03) X10*3/uL Absolute Neuts (auto) 5.5 (2.0-8.3) x10*3/uL Absolute Nucleated RBC 0.000 (0.0-0.012) X10*3/uL Nucleated RBC % (auto) 0.0 (0.0-0.2) /100WBC Sodium 135 (135-145) mmol/L Potassium 4.7 (3.3-5.1) mmol/L Chloride 95 L (96-108) mmol/L Carbon Dioxide 26 (22-29) mmol/L Anion Gap 19 (12-20) BUN 18 H (9-16) mg/dL Creatinine 1.34 (0.5-1.4) mg/dL Estim Creat Clear Calc 79.6 Estimated GFR 60 Random Glucose 364 H* (60-115) mg/dL Lactic Acid 2.7 H* (0.5-2.0) mmol/L Calcium 9.0 D (8.4-10.2) mg/dL C-Reactive Protein 33.23 H (< or = 0.50) mg/dL Acetone, Qual Negative (Negative) COVID-19 (MARY KATE) (Negative) COVID-19 Clin Com 08/04/21 Range/Units 21:43 WBC (4.8-10.8) X10*3/uL RBC (4.60-5.80) X10*6/uL Hgb (14.0-18.0) g/dl Hct (42.0-52.0) % MCV (80.0-98.0) fL MCH (27.0-33.0) pg MCHC (31.0-36.0) g/dl RDW (11.0-16.0) % Plt Count (160-400) X10*3/uL MPV (9.4-12.4) fL Immature Gran % (Auto) (0.0-0.4) % Neut % (Auto) (45-73) % Lymph % (Auto) (20-40) % [place] % (Auto) (2-11) % Eos % (Auto) (0-4) % Baso % (Auto) (0-2) % Lymph # (Auto) (1.2-4.9) X10*3/uL [place] # (Auto) (0.1-1.2) X10*3/uL Eos # (Auto) (0.0-0.4) X10*3/uL Baso # (Auto) (0.0-0.2) X10*3/uL Abs Immat Gran (auto) (0.00-0.03) X10*3/uL Absolute Neuts (auto) (2.0-8.3) x10*3/uL Absolute Nucleated RBC (0.0-0.012) X10*3/uL Nucleated RBC % (auto) (0.0-0.2) /100WBC Sodium (135-145) mmol/L Potassium (3.3-5.1) mmol/L Chloride (96-108) mmol/L Carbon Dioxide (22-29) mmol/L Anion Gap (12-20) BUN (9-16) mg/dL Creatinine (0.5-1.4) mg/dL Estim Creat Clear Calc Estimated GFR Random Glucose (60-115) mg/dL Lactic Acid (0.5-2.0) mmol/L Calcium (8.4-10.2) mg/dL C-Reactive Protein (< or = 0.50) mg/dL Acetone, Qual (Negative) COVID-19 (MARY KATE) Negative (Negative) COVID-19 Clin Com See Note Imaging Data Venous and arterial duplex: Attestation: I personally reviewed and interpreted this imaging study as follows: Radiologist's impression: EXAMINATION: NONINVASIVE ASSESSMENT OF THE ARTERIES OF THE LEFT LOWER EXTREMITY Landry Red MD CLINICAL INFORMATION: Osteomyelitis TECHNIQUE: Left lower extremity duplex ultrasound was performed with velocity measurements and waveform analysis in the common femoral arteries, profunda femoris arteries, proximal mid and distal superficial femoral arteries, popliteal arteries and tibial vessels. This study was performed only at rest. COMPARISON: Arterial duplex 08/11/2018 and 11/08/2019 FINDINGS: Velocities in cm/sec and phasicity as well as the presence of plaque are reported below. LEFT LEG: Monophasic flow is present for the most part throughout the lower extremity worrisome for inflow disease. There has been a dramatic change in the waveform when compared to the prior study from 11/08/2019 waveforms were multiphasic throughout. Plaque formation is present in the distal femoral artery as well as popliteal and tibial vessels. Velocity elevations the SFA and popliteal suggesting more focal stenoses in these areas. Common Femoral: 136 Profunda Femoris: 123 Proximal SFA: 147 Mid SFA: 162 Distal SFA: 153 Popliteal: 163 Tibial: 148 A large groin lymph node is present measuring 3.8 x 1.9 x 2.8 cm. US/US arterial duplex LE IMPRESSION: There is evidence of peripheral vascular disease with monophasic flow throughout. There has been a significant change in the appearance of waveforms when compared to 11/08/2019 study. Because of this, CT angiography is recommended for further evaluation to evaluate for the presence of inflow disease. More focal stenotic disease is present in the distal SFA popliteal artery and tibial vessels. EXAMINATION:? US VENOUS ULTRASOUND WITH DOPPLER LOWER EXTREMITY, LEFT CLINICAL INFORMATION:? Left leg swelling 07/31/2019 COMPARISON:? None TECHNIQUE: Ultrasound of the deep veins is performed from the hip to the calf with compression sonography and color and pulse Doppler assessment. Spectral analysis with color-flow imaging is performed. FINDINGS: There is normal venous compression and respiratory variation and augmented flow. The visualized common femoral vein, superficial femoral vein, profunda femoral vein, popliteal vein, and the trifurcation region shows no evidence of deep venous thrombosis. ? There is no significant popliteal fossa cyst. Enlarged inguinal lymph nodes are seen in the left groin. If the patient's symptoms persist, followup ultrasound in 5 days 7 days might be of value to exclude proximal propagation from a non-visualized calf vein. US/US venous duplex LE LT IMPRESSION: No DVT demonstrated in the left lower extremity. ? Enlarged left inguinal lymph nodes. Foot x-ray: Attestation: I personally reviewed and interpreted this imaging study as follows: Radiologist's impression: EXAMINATION: XR FOOT, LEFT CLINICAL INFORMATION: Diabetic ulcer? COMPARISON: 06/25/2021? TECHNIQUE: AP, lateral, and oblique views of the left foot. FINDINGS: Patient is status post midfoot amputation onward. Chronic bony deformity seen to the remaining tarsal bones there is subtle lucency along the lateral aspect of the tarsal bones when compared to the prior study. This is more than would be expected for bony remodeling alone. Ankle mortise appears intact. Diffuse soft tissue swelling no radiopaque foreign body. Small calcaneal heel spur incidentally noted. XR/XR foot LT min 3V IMPRESSION: Chronic appearing postoperative and degenerative remodeling changes seen. There is a subtle lucency laterally in the tarsal bones which had more normal trabeculations on the prior study. Subtle erosive changes within the lateral bone cannot be excluded. MRI foot would be helpful to evaluate this further. Osteomyelitis cannot be excluded. Critical Care Time Critical Care Time Critical Care Time: Yes Total Critical Care Time: 45 Attestation: I have personally provided critical care time exclusive of time spent on sepa rately billable procedures. Time includes review of laboratory data, radiology results, discussion with consultants, and monitoring for potential decompensation. Interventions were performed as documented. Discharge Plan Discharge Clinical Impression: Osteomyelitis Qualifiers: Osteomyelitis type: unspecified type Osteomyelitis location: foot Laterality: left Qualified Code(s): M86.9 - Osteomyelitis, unspecified Patient Disposition: Admitted As Inpatient
--- NOTE | 2021-08-04 23:13 | PC.NURSE ---
Pt in [facility] Plan to be medicated upon return.
[2021-08-04 23:14] LABS: Acetone, serum QL Negative (Negative)
[2021-08-04 23:28] VITALS: TEMP 37.6
[2021-08-04] MEDS: 0.9 % Sodium Chloride 1,000 ML 999 ML IVCONT (23:29)
[2021-08-04] MEDS: Insulin Lispro 100 UNIT/ML 3 ML VIAL 10 UNIT SUBCUT (23:29)
[2021-08-04] MEDS: cefTRIAXone sodium 1 GM in 0.9 % Sodium Chloride 50 ML IV (23:29)
--- NOTE | 2021-08-04 23:37 | PC.NURSE ---
Pt returns from U/S. IV established, pt medicated per MAR with IVF and ABX. Med Rec completed at bedside with pt. Pt refusing Tylenol, states it makes him feel nauseated. RFID SYSTEMS ENGINEER aware. Continue to monitor.
[2021-08-04] MEDS: vancomycin HCL 1,000 MG in 0.9 % Sodium Chloride 250 ML 270 MG IV (23:44)
[2021-08-04 23:49] LABS: Reflex Lactate? Lactic Acid Added
[2021-08-05] VITALS (8 sets, daily range): BP systolic 114–135; BP diastolic 61–81; PULSE 74–94; RESP 14–18; TEMP 36.6–37.8; O2SAT 93–100
[2021-08-05] MEDS: 0.9 % Sodium Chloride 1,000 ML 999 ML IVCONT (00:22)
[2021-08-05 00:28] LABS: C Reactive Protein 33.23 mg/dL (< or = 0.50)
[2021-08-05 00:46] LABS: Erythrocyte Sedimentation Rate 124 MM/HR (0-15)
[2021-08-05] MEDS: iohexoL 350 MG/ML 100 ML INFUS..BTL 80 ML IV (02:00)
[2021-08-05] MEDS: Piperacillin Sodium/Tazobactam 3.375 GM in 0.9 % Sodium Chloride 50 ML IV ×4 (03:41→22:25)
[2021-08-05 03:57] LABS: MANUAL DIFF FLAG NO
--- NOTE | 2021-08-05 06:08 | P.HPHOSP_ITS ---
History of Present Illness Date of Service: 08/05/21 Chief Complaint: foot infection This is a 36-year-old male with past medical history of diabetes, foot abscess of the left, history substance use disorder, osteomyelitis status post metatarsal amputations for presents to the hospital with complaints of nonhealin g left heel wound. Patient reports that he had this for about couple of weeks worsening with increased drainage, increased pain in his foot as well as swelling he reports that he went to wound clinic last week, they obtain bone biopsy but was not started on any antibiotics. He denies having any fever or chills, denies any chest pain or shortness of breath, no abdominal pain nausea or vomiting, no diarrhea constipation, no urinary symptoms and no lower extremity edema except in the left foot. On arrival to the ED patient's vitals are significant for a temp of 101.2?, otherwise unremarkable. Labs are significant for WBC count of 7.2, hemoglobin of 8.1 which is been his recent baseline since 2020, ESR of 124, lactic acid of 2.7, CRP of 33.2, having 19 negative. Foot x-ray shows chronic appearing postoperative and degenerative remodeling changes. There is subtle lucency laterally in the tarsal bones which had more normal tubercle a shins on the prior CT in June. Subtle erosive changes within the lateral bone cannot be excluded. Osteomyelitis cannot be excluded. Patient started on IV antibiotics and will be admitted for further management Review of Systems Verdana 4l Review of Systems: Yes all other systems are reviewed and Verdana 4d are negative [facility] Medical History Anemia Diabetes Foot abscess, left History of substance use Non-healing ulcer of right foot Osteomyelitis Family History Mother Breast cancer CVD (cardiovascular disease) Diabetes Cancer Father Diabetes CVD (cardiovascular disease) Surgical History History of appendectomy History of carpal tunnel surgery of left wrist History 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 Social History Household Members: Family Housing: Unknown / Unable to assess Housing Other:: patient states his belongings are in his truck Do you presently have visiting nurse or other home services: No Unable to assess alcohol history related to: Unknown Alcohol intake: unknown Patient Tobacco Use Status: Tobacco use Unknown Second Hand Smoke Exposure: No Advance Directives: No Advance Directives Information Provided: Yes service: No Current occupational status: unemployed Meds Allergies Allergy/AdvReac Type Severity Reaction Status Date / Time No Known Allergies Allergy Verified 08/04/21 21:26 [No Known Allergies*] Active Medications: Current Medications Acetaminophen (Acetaminophen 325 Mg Tablet) 650 mg PO Q6H PRN PRN Reason: Pain, Mild (Pain Scale 1-3) Docusate Sodium (Docusate Sodium 100 Mg Capsule) 100 mg PO DAILY PRN PRN Reason: Constipation Enoxaparin Sodium (Enoxaparin Sodium 40 Mg/0.4 Ml Syringe) 40 mg SUBCUT Q24H [facility] Piperacillin Sod/Tazobactam (Sod 3.375 gm/ Sodium Chloride) 50 mls @ 100 mls/hr IV Q6H [facility] Last Admin: 08/05/21 03:41 Dose: 100 mls/hr Documented by: Vancomycin HCl 1,250 mg/ (Sodium Chloride) 250 mls @ 166.667 mls/hr IV Q24H [facility] Morphine Sulfate (Morphine Sulfate 4 Mg/Ml Cartridge) 4 mg IVPUSH Q4H PRN; Protocol PRN Reason: Pain, Severe (Pain Scale 7-10) Ondansetron HCl (Ondansetron Hcl 4 Mg/2 Ml Vial) 4 mg IVPUSH Q8H PRN PRN Reason: Nausea and Vomiting Pharmacy Consult (Consult Rx Vancomycin Dosing) 1 each MISCELLANE DAILY PRN PRN Reason: Consult order Sodium Chloride (0.9 % Sodium Chloride Flush 3 Ml Syringe) 3 ml IVFLUSH QSHIFT [facility] Home Medications Medication Instructions Recorded Confirmed Last Taken Type ferrous sulfate 325 mg PO DAILY 05/06/20 08/04/21 08/04/21 08:00 History 325 mg (65 mg iron) tablet gabapentin 600 600 mg PO TID 05/06/20 08/04/21 08/04/21 14:00 History mg tablet insulin lispro 1 sliding scale 05/06/20 08/04/21 08/04/21 13:00 History 100 unit/mL dose SUBCUT QID subcutaneous solution (Admelog U-100 Insulin lispro) metformin 500 1,000 mg PO BID 05/06/20 08/04/21 08/04/21 08:00 History mg tablet insulin 20 unit SUBCUT 08/04/21 08/04/21 08/04/21 08:00 History glargine 100 BID unit/mL (3 mL) subcutaneous pen (Lantus Solostar U-100 Insulin) Physical Exam Verdana 4l Vital Signs and Narrative: Verdana 4d Verdana 4d Vital Signs: Verdana 4d Verdana 4Bd Last Vital Signs Verdana 4d Licensed Occupational Therapy Assistant New 4d Licensed Occupational Therapy Assistant New 4d Temp 100.0 F 08/05/21 02:31 Licensed Occupational Therapy Assistant New 4d Pulse 91 08/05/21 02:31 Licensed Occupational Therapy Assistant New 4d Resp 14 08/05/21 02:31 BP 114/64 08/05/21 02:31 Pulse Ox 95 08/05/21 02:31 BMI result Body Mass Index 25.1 Const: General: cooperative and no acute distress Orientation/consciousness: patient oriented x3 Eyes: General: appearance normal, both eyes and all related structures Pupils: Equal, round and reactive pupils present Resp: Effort & Inspection: normal respiratory effort Auscultation: clear to auscultation bilaterally Cardio: Rate: regular rate Rhythm: regular rhythm GI: Palpation (GI): Soft to palpation Auscultation: normal bowel sounds Skin: General skin exam: no rashes or lesions noted Neuro: General: patient oriented x3 Cranial nerves: Yes Equal, round and reactive pupils present Cognition (Neuro): normal cognition Extrem: Other: Left foot stump with a infectious appearing heel at the base of the foot, plantar region of the foot stump. Draining mucopurulent drainage. Malodorous. bilateral matatarsal amputation Results Labs CBC and Chem 7: 08/04/21 21:41 08/04/21 21:41 Labs: Laboratory Results - last 24 hr 08/04/21 08/04/21 08/04/21 21:41 21:41 21:41 MCV 84.8 MCH 27.4 MCHC 32.3 RDW 13.0 Plt Count 315 MPV 9.4 Immature Gran % (Auto) 0.4 Neut % (Auto) 76.6 H Lymph % (Auto) 13.3 L [place] % (Auto) 8.8 Eos % (Auto) 0.8 Baso % (Auto) 0.1 Lymph # (Auto) 1.0 L [place] # (Auto) 0.6 Eos # (Auto) 0.1 Baso # (Auto) 0.0 Abs Immat Gran (auto) 0.03 Absolute Neuts (auto) 5.5 Absolute Nucleated RBC 0.000 Nucleated RBC % (auto) 0.0 ESR Anion Gap 19 Estim Creat Clear Calc 79.6 Estimated GFR 60 Random Glucose 364 H* Lactic Acid 2.7 H* Calcium 9.0 D C-Reactive Protein 33.23 H Acetone, Qual Negative COVID-19 ([facility] KATE) COVID-19 Clin Com 08/04/21 08/05/21 21:43 21:41 MCV MCH MCHC RDW Plt Count MPV Immature Gran % (Auto) Neut % (Auto) Lymph % (Auto) [place] % (Auto) Eos % (Auto) Baso % (Auto) Lymph # (Auto) [place] # (Auto) Eos # (Auto) Baso # (Auto) Abs Immat Gran (auto) Absolute Neuts (auto) Absolute Nucleated RBC Nucleated RBC % (auto) ESR 124 H Anion Gap Estim Creat Clear Calc Estimated GFR Random Glucose Lactic Acid Calcium C-Reactive Protein Acetone, Qual COVID-19 (MARY KATE) Negative COVID-19 Clin Com See Note Imaging Radiologist's Impressions: Impressions Foot X-Ray 08/04/21 22:38 IMPRESSION: Chronic appearing postoperative and degenerative remodeling changes seen. There is a subtle lucency laterally in the tarsal bones which had more normal trabeculations on the prior study. Subtle erosive changes within the lateral bone cannot be excluded. MRI foot would be helpful to evaluate this further. Osteomyelitis cannot be excluded. Venous Duplex 08/04/21 23:00 IMPRESSION: No DVT demonstrated in the left lower extremity. Enlarged left inguinal lymph nodes. Duplex Scan Lower Extremity Artery 08/04/21 23:15 IMPRESSION: There is evidence of peripheral vascular disease with monophasic flow throughout. There has been a significant change in the appearance of waveforms when compared to 11/08/2019 study. Because of this, CT angiography is recommended for further evaluation to evaluate for the presence of inflow disease. More focal stenotic disease is present in the distal SFA popliteal artery and tibial vessels. Lower Extremity CTA 08/05/21 01:50 IMPRESSION: 1. No acute vascular abnormality. No areas of stenosis identified. 2. Chronic amputation of the foot. Multiple destructive changes are new from 01/31/2021. These could be acute. This includes fractures involving the talus, calcaneus, and navicular. 3. Erosive appearance involving the cuboid, concerning for osteomyelitis. MRI would be useful to better evaluate if clinically indicated. Assessment and Plan (1) Osteomyelitis: Qualifiers: Laterality: left Osteomyelitis location: foot Osteomyelitis type: unspecified type Qualified Code(s): M86.9 - Osteomyelitis, unspecified Status: Acute (2) Foot abscess, left: Status: Acute (3) Diabetic infection of left foot: Status: Acute (4) Non-healing ulcer: Status: Acute Plan 36-year-old male with past medical history of diabetes with history of osteomyelitis and amputation of metatarsals in feet bilaterally presents to the hospital complaining of nonhealing wound # nonhealing diabetic foot ulcer of the left foot - concerning for osteomyelitis - has elevated ESR as well as CRP - patient is febrile, no leukocytosis - start him on broad-spectrum antibiotics - consult ID - general surgery for possible I&D - wound care - MRI foot - follow cultures # normocytic anemia - most likely secondary to chronic disease - will obtain ferritin, B12 and folic acid - monitor CBC # diabetes - continue home glargine, will start low-dose sliding scale insulin, diabetic diet DVT prophylaxis: Lovenox- but will hold today given possible I&D by surgical Quality Stroke Does the patient have a stroke diagnosis?: No VTE Prior VTE?: No VTE Risk Level:: Medical - moderate - high VTE Device Contraindication: Treatment Not Indicated VTE Drug Contraindication: N/A - Med Ordered
[2021-08-05 06:16] LABS: Anion Gap 15 (12-20); Blood Urea Nitrogen 17 mg/dL (9-16); Calcium 7.8 mg/dL (8.4-10.2); Carbon Dioxide 23 mmol/L (22-29); Chloride 100 mmol/L (96-108); Creatinine Clr Calc Pharmacy 102.5; Estimated Glomerular Filt Rate > 60; Glucose Random 119 mg/dL (60-115); Potassium 3.9 mmol/L (3.3-5.1); Sodium 134 mmol/L (135-145); ~Lactic Acid-LAB USE ONLY 0.6 mmol/L (0.5-2.0)
[2021-08-05 06:36] LABS: Mean Corpuscular HGB Conc 32.7 g/dl (31.0-36.0); Mean Corpuscular Hemoglobin 27.5 pg (27.0-33.0); Mean Corpuscular Volume 84.2 fL (80.0-98.0); Mean Platelet Volume 9.8 fL (9.4-12.4); Platelet Count 210 X10*3/uL (160-400); Red Blood Count 2.47 X10*6/uL (4.60-5.80); Red Cell Distribution Width 13.1 % (11.0-16.0); White Blood Count 6.5 X10*3/uL (4.8-10.8)
[2021-08-05 06:37] LABS: Hematocrit 20.8 % (42.0-52.0); Hemoglobin 6.8 g/dl (14.0-18.0); Neutrophils Percent Auto 75.4 % (45-73)
[2021-08-05 06:38] LABS: Basophils Percent Auto 0.2 % (0-2); Eosinophils Percent Auto 0.6 % (0-4); Imm Gran Abs Auto 0.01 X10*3/uL (0.00-0.03); Imm Gran Pct Auto 0.2 % (0.0-0.4); Lymphocytes Percent Auto 15.2 % (20-40); Monocytes Absolute Auto 0.6 X10*3/uL (0.1-1.2); Monocytes Percent Auto 8.4 % (2-11); Neutrophils Absolute Auto 4.9 x10*3/uL (2.0-8.3)
[2021-08-05 07:31] LABS: Glucose, Whole Blood 161 mg/dL (60-115)
--- NOTE | 2021-08-05 08:00 | PC.NURSE ---
Wound assessment completed in ER today. Patient has an infected diabetic ulcer of left plantar foot with purulent drainage- this nurse did not applied any dressings to this wound as surgery will need to see it for a possible I & D of wound. Will follow patient after surgery sees him.
[2021-08-05] MEDS: Insulin Lispro 100 UNIT/ML 3 ML VIAL SUBCUT ×4 (08:24→20:35)
--- NOTE | 2021-08-05 08:24 | PHA.MEDREC ---
Pharmacy Consult ? Medication Reconciliation Pharmacy has completed the medication reconciliation. Patient reported all medications. Leticia Shell, NavaD
[2021-08-05] MEDS: vancomycin HCL 1,000 MG in 0.9 % Sodium Chloride 250 ML 270 MG IV ×2 (08:25→19:23)
[2021-08-05] MEDS: Ferrous Sulfate 324 MG TABLET.DR PO (08:55)
[2021-08-05] MEDS: Gabapentin 600 MG TABLET PO ×3 (08:55→20:34)
[2021-08-05] MEDS: Insulin Glargine,Hum.rec.anlog 100 UNIT/ML 10 ML VIAL 20 UNIT SUBCUT ×2 (08:56→20:34)
[2021-08-05 09:03] LABS: MANUAL DIFF FLAG NO
[2021-08-05 09:04] LABS: Basophils Percent Auto 0.2 % (0-2); Eosinophils Absolute Auto 0.1 X10*3/uL (0.0-0.4); Eosinophils Percent Auto 1.1 % (0-4); Imm Gran Abs Auto 0.02 X10*3/uL (0.00-0.03); Imm Gran Pct Auto 0.3 % (0.0-0.4); Lymphocytes Absolute Auto 0.7 X10*3/uL (1.2-4.9); Lymphocytes Percent Auto 10.5 % (20-40); Mean Corpuscular Hemoglobin 27.6 pg (27.0-33.0); Mean Corpuscular Volume 83.6 fL (80.0-98.0); Mean Platelet Volume 9.4 fL (9.4-12.4); Monocytes Absolute Auto 0.5 X10*3/uL (0.1-1.2); Monocytes Percent Auto 7.8 % (2-11); Neutrophils Absolute Auto 5.1 x10*3/uL (2.0-8.3); Neutrophils Percent Auto 80.1 % (45-73); Platelet Count 217 X10*3/uL (160-400); Red Cell Distribution Width 13.1 % (11.0-16.0); White Blood Count 6.4 X10*3/uL (4.8-10.8)
[2021-08-05 09:10] LABS: Hematocrit 20.9 % (42.0-52.0); Hemoglobin 6.9 g/dl (14.0-18.0)
[2021-08-05 09:41] LABS: Ferritin 386 ng/mL (20-250)
[2021-08-05 10:02] LABS: Vitamin B12 511 pg/mL (200-900)
--- NOTE | 2021-08-05 12:04 | MHC.CM.PN ---
Attempted to meet with patient in regards to discharge planning. Patient currently at a test. Spoke with patient's sig other/HCP, Jerri via telephone at [phone]. Patient now has an apartment and lives alone. Patient has been using an umbrella as a cane to help ambulate. Patient had no services prior to coming to the hospital. PCP verified. Copy of HCP verified to be on file. Patient has not received any Covid vaccines. Patient admitted for osteomyelitis. Patient may need a physical therapy eval for home safety when medically stable. Continue to monitor for d/c needs.
[2021-08-05 14:03] LABS: Glucose, Whole Blood 224 mg/dL (60-115)
--- NOTE | 2021-08-05 14:55 | MHC.RECOVRN ---
Met with pt in ED6 to discuss substance use. Pt known to t/w from previous facilities. Pt reports being in recovery for awhile and discontinuing methadone a couple months ago. Pt has a sponsor, is working as a hvac mechanical engineer, and has his own apartment. Pt declines any additional recovery supports at this time. Pt provided with t/w card if needed.
--- NOTE | 2021-08-05 15:54 | P.CNID_ITS ---
History of Present Illness Data of Consult Service Date: 08/05/21 Requesting physician: Kaet Tellez Primary Care Provider: Jose Manuel Alicea MD HPI Reason for consult: left foot infection He presents with one week worsening redness and swelling LLE He has had osteomyelitis in past and I had seen him over summer. He had taken Ertapenem end January 2021 to early March 2021 followed by po Doxycycline for two months He has subsequently felt well and area foot healed somewhat. He had been seen by Wound Clinic he says Review of Systems 2 Verdana 4l Review of Systems: Yes all other systems are reviewed and Verdana 4d are negative [facility] Past Medical History Medical History Anemia Diabetes Foot abscess, left History of substance use Non-healing ulcer of right foot Osteomyelitis Family History Family History Mother Breast cancer CVD (cardiovascular disease) Diabetes Cancer Father Diabetes CVD (cardiovascular disease) Family history: reviewed and not pertinent Surgical History Surgical History History of appendectomy History of carpal tunnel surgery of left wrist History 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 Social History Social History Household Members: Family Housing: Unknown / Unable to assess Housing Other:: patient states his belongings are in his truck Do you presently have visiting nurse or other home services: No Unable to assess alcohol history related to: Unknown Alcohol intake: unknown Patient Tobacco Use Status: Tobacco use Unknown Second Hand Smoke Exposure: No Advance Directives: No Advance Directives Information Provided: Yes service: No Current occupational status: unemployed Meds Allergies Allergy/AdvReac Type Severity Reaction Status Date / Time No Known Allergies Allergy Verified 08/04/21 21:26 [No Known Allergies*] Active Medications: Current Medications Acetaminophen (Acetaminophen 325 Mg Tablet) 650 mg PO Q6H PRN PRN Reason: Pain, Mild (Pain Scale 1-3) Dextrose (Dextrose 50 % 25 Gm/50 Ml Syringe) 25 gm IVPUSH Q15M PRN; Protocol PRN Reason: per Hypoglycemia Standing Ord. Docusate Sodium (Docusate Sodium 100 Mg Capsule) 100 mg PO DAILY PRN PRN Reason: Constipation Ferrous Sulfate (Ferrous Sulfate 324 Mg Tablet.) 324 mg PO DAILY [facility] Last Admin: 08/05/21 08:55 Dose: 324 mg Documented by: Gabapentin (Gabapentin 600 Mg Tablet) 600 mg PO TID [facility] Last Admin: 08/05/21 14:19 Dose: 600 mg Documented by: Glucose (Glucose Gel 15 Gm Gel..Gram.) 15 gm PO Q15M PRN; Protocol PRN Reason: per Hypoglycemia Standing Ord. Piperacillin Sod/Tazobactam (Sod 3.375 gm/ Sodium Chloride) 50 mls @ 100 mls/hr IV Q6H [facility] Last Admin: 08/05/21 08:24 Dose: 100 mls/hr Documented by: Vancomycin HCl 1,000 mg/ (Sodium Chloride) 270 mls @ 270 mls/hr IV Q12H [facility] Last Admin: 08/05/21 08:25 Dose: 270 mls/hr Documented by: Insulin Glargine (Insulin Glargine,Hum.Rec.Anlog 100 Unit/Ml 10 Ml Vial) 20 unit SUBCUT BID [facility] Last Admin: 08/05/21 08:56 Dose: 20 unit Documented by: Insulin Human Lispro (Insulin Lispro 100 Unit/Ml 3 Ml Vial) 0 unit SUBCUT QIDACHS [facility]; Protocol Last Admin: 08/05/21 14:18 Dose: 4 unit Documented by: Morphine Sulfate (Morphine Sulfate 4 Mg/Ml Cartridge) 4 mg IVPUSH Q4H PRN; P rotocol PRN Reason: Pain, Severe (Pain Scale 7-10) Ondansetron HCl (Ondansetron Hcl 4 Mg/2 Ml Vial) 4 mg IVPUSH Q8H PRN PRN Reason: Nausea and Vomiting Pharmacy Consult (Consult Rx Vancomycin Dosing) 1 each MISCELLANE DAILY PRN PRN Reason: Consult order Sodium Chloride (0.9 % Sodium Chloride Flush 3 Ml Syringe) 3 ml IVFLUSH QSHIFT [facility] Last Admin: 08/05/21 09:01 Dose: Not Given Documented by: Home Medications Medication Instructions Recorded Confirmed Last Taken Type ferrous sulfate 325 mg PO DAILY 05/06/20 08/04/21 08/04/21 08:00 History 325 mg (65 mg iron) tablet gabapentin 600 600 mg PO TID 1008/04/21 08/04/21 14:00 History mg tablet insulin lispro 1 sliding scale 05/06/20 08/04/21 08/04/21 13:00 History 100 unit/mL dose SUBCUT QID subcutaneous solution (Admelog U-100 Insulin lispro) metformin 500 1,000 mg PO BID 05/06/20 08/04/21 08/04/21 08:00 History mg tablet insulin 20 unit SUBCUT 08/04/21 08/04/21 08/04/21 08:00 History glargine 100 BID unit/mL (3 mL) subcutaneous pen (Lantus Solostar U-100 Insulin) Physical Exam Verdana 4l Vital Signs: Verdana 4d Verdana 4d Vital Signs: Verdana 4d Verdana 4Bd Last Vital Signs Verdana 4d Boat Builder New 4d Boat Builder New 4d Temp 98.6 F 08/05/21 06:20 Boat Builder New 4d Pulse 83 08/05/21 14:51 Boat Builder New 4d Resp 16 08/05/21 14:51 BP 124/81 08/05/21 14:51 Pulse Ox 97 08/05/21 14:51 BMI result Body Mass Index 25.1 Const: General: cooperative Eyes: General: appearance normal, both eyes and all related structures Pupils: Equal, round and reactive pupils present Resp: Effort & Inspection: normal respiratory effort Cardio: Rate: regular rate Rhythm: regular rhythm GI: Palpation (GI): Soft to palpation and nontender Skin: General skin exam: no rashes or lesions noted Neuro: Cranial nerves: Yes Equal, round and reactive pupils present Extrem: Other: left foot salmon red to ankle with spongy 2 cm ulcer mid plantar area neuropathy Results Labs CBC & Chem 7: 08/05/21 08:54 08/05/21 03:51 Labs: Short CBC 08/04/21 08/05/21 08/05/21 Range/Units 21:41 03:51 08:54 WBC 7.2 6.5 6.4 (4.8-10.8) X10*3/uL Hgb 8.1 L 6.8 L* 6.9 L* (14.0-18.0) g/dl Hct 25.1 L 20.8 L* 20.9 L* (42.0-52.0) % Plt Count 315 210 D 217 (160-400) X10*3/uL BMP 08/04/21 08/05/21 21:41 03:51 Sodium 135 134 L Potassium 4.7 3.9 Chloride 95 L 100 Carbon Dioxide 26 23 BUN 18 H 17 H Creatinine 1.34 1.04 Calcium 9.0 D 7.8 L D Assessment and Plan (1) Non-healing ulcer: Status: Acute (2) Osteomyelitis: Qualifiers: Laterality: left Osteomyelitis location: foot Osteomyelitis type: unspecified type Qualified Code(s): M86.9 - Osteomyelitis, unspecified Status: Acute (3) Diabetic infection of left foot: Status: Acute He has recurrent ulcer now seems to be MRSA He also has anerobes with anerococcus and prevotella He has had symptoms for a week Plan Would continue Vancomycin and Zosyn at this time He will likely need Vancomycin and possible anerobic treatment with Flagyl or Zosyn as outpatient as foot is at risk of needing amputation of affected areas as looks worse than prior on MRI Vascular or Surgery to see ?help debridement
[2021-08-05] MEDS: 0.9 % Sodium Chloride Flush 3 ML SYRINGE IVFLUSH ×2 (16:22→20:34)
[2021-08-05 17:20] LABS: Glucose, Whole Blood 300 mg/dL (60-115)
[2021-08-05 19:47] LABS: Glucose, Whole Blood 275 mg/dL (60-115)
[2021-08-06] VITALS (10 sets, daily range): BP systolic 131–167; BP diastolic 56–85; PULSE 80–89; RESP 18–20; TEMP 36.5–37.6; O2SAT 94–98
[2021-08-06] MEDS: Piperacillin Sodium/Tazobactam 3.375 GM in 0.9 % Sodium Chloride 50 ML IV ×4 (03:57→21:07)
[2021-08-06 06:27] LABS: Creatinine Clr Calc Pharmacy 111.1; Estimated Glomerular Filt Rate > 60
[2021-08-06 06:28] LABS: Anion Gap 14 (12-20); Blood Urea Nitrogen 10 mg/dL (9-16); Calcium 8.4 mg/dL (8.4-10.2); Carbon Dioxide 26 mmol/L (22-29); Chloride 100 mmol/L (96-108); Creatinine Clr Calc Pharmacy 108.8; Estimated Glomerular Filt Rate > 60; Glucose Random 143 mg/dL (60-115); Potassium 4.1 mmol/L (3.3-5.1); Sodium 136 mmol/L (135-145)
[2021-08-06 06:35] LABS: Vancomycin Trough 11.1 mcg/mL (10.0-20.0)
--- NOTE | 2021-08-06 07:38 | HE.PHANOTE ---
Vancomycin Dosing Addendum Vanco trough 11.1, predicted AUC 418. P AUC 58%. Increasing dose to 1250 mg q12h for predicted AUC of 521.
[2021-08-06 07:55] LABS: Glucose, Whole Blood 147 mg/dL (60-115)
[2021-08-06] MEDS: Ferrous Sulfate 324 MG TABLET.DR PO (09:21)
[2021-08-06] MEDS: vancomycin HCL 1,250 MG in 0.9 % Sodium Chloride 250 ML 166.67 MG IV ×2 (09:21→19:46)
[2021-08-06] MEDS: Gabapentin 600 MG TABLET PO ×3 (09:21→20:57)
[2021-08-06] MEDS: ondansetron HCL 4 MG/2 ML VIAL IVPUSH (09:21)
[2021-08-06] MEDS: 0.9 % Sodium Chloride Flush 3 ML SYRINGE IVFLUSH ×3 (09:22→20:58)
[2021-08-06] MEDS: Insulin Glargine,Hum.rec.anlog 100 UNIT/ML 10 ML VIAL 20 UNIT SUBCUT ×2 (09:22→20:58)
--- NOTE | 2021-08-06 09:30 | P.CONGS_ITS ---
History of Present Illness Consult details Consult date: 08/06/21 Narrative: 36-year-old male referred for osteomyelitis of the tarsal bones. He is well known to the surgical service. He has had multiple amputations of both feet in the past. He has a transmetatarsal amputation on the left as well as on the right side. He was here in the hospital last January 2021 because of osteomyelitis with an abscess the left foot. He has had a chronic ulcer although the seems to have improved with long-term IV antibiotic treatment at home. He was admitted today because of pain in an ulcer on the left foot. [facility] for this. Review of Systems Verdana 4l Constitutional: Verdana 4d Constitutional: Verdana 4d Verdana 4d Denies chills and Reports fever(s) Verdana 4l Cardiovascular: Verdana 4d Cardiovascular: Verdana 4d Verdana 4d Denies chest pain, Denies dyspnea and Denies dyspnea on exertion Verdana 4l Respiratory: Verdana 4d Verdana 4d Respiratory: Verdana 4d Denies cough, Denies dyspnea and Denies dyspnea on exertion Verdana 4l Gastrointestinal: Verdana 4d Gastrointestinal: Verdana 4d Verdana 4d Denies hematochezia and Denies change in bowel habits Verdana 4l Genitourinary: Verdana 4d Verdana 4d Genitourinary: Verdana 4d Denies hematuria and Denies difficulty urinating Verdana 4l Musculoskeletal: Verdana 4d Musculoskeletal: Verdana 4d Verdana 4d Denies back pain and Denies limited range of motion Verdana 4l Neurologic: Verdana 4d Denies focal weakness and Denies convulsions Verdana 4l Psychiatric: Verdana 4d Verdana 4d Psychiatric: Verdana 4d Denies depression and Denies mood swings PMFSH Past Medical History Medical History Anemia Diabetes Foot abscess, left History of substance use Non-healing ulcer of right foot Osteomyelitis Family History Family History Mother Breast cancer CVD (cardiovascular disease) Diabetes Cancer Father Diabetes CVD (cardiovascular disease) Family history: reviewed and not pertinent Surgical History Surgical History History of appendectomy History of carpal tunnel surgery of left wrist History 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 Social History Social History Household Members: None Housing: Apartment Housing Other:: patient states his belongings are in his truck Do you presently have visiting nurse or other home services: No Unable to assess alcohol history related to: Unknown Alcohol intake: unknown Patient Tobacco Use Status: Current everyday Tobacco user Tobacco use type: Cigarette Cigarette Packs Per Day: 0.5 Cigarettes Per Day: 10.0 Years Smoked: 30 Second Hand Smoke Exposure: No service: No Current occupational status: unemployed Meds Allergies Allergy/AdvReac Type Severity Reaction Status Date / Time No Known Allergies Allergy Verified 08/04/21 21:26 [No Known Allergies*] Active Medications: Current Medications Acetaminophen (Acetaminophen 325 Mg Tablet) 650 mg PO Q6H PRN PRN Reason: Pain, Mild (Pain Scale 1-3) Dextrose (Dextrose 50 % 25 Gm/50 Ml Syringe) 25 gm IVPUSH Q15M PRN; Protocol PRN Reason: per Hypoglycemia Standing Ord. Docusate Sodium (Docusate Sodium 100 Mg Capsule) 100 mg PO DAILY PRN PRN Reason: Constipation Ferrous Sulfate (Ferrous Sulfate 324 Mg Tablet.Dr) 324 mg PO DAILY [facility] Last Admin: 08/06/21 09:21 Dose: 324 mg Documented by: Gabapentin (Gabapentin 600 Mg Tablet) 600 mg PO TID [facility] Last Admin: 08/06/21 09:21 Dose: 600 mg Documented by: Glucose (Glucose Gel 15 Gm Gel..Gram.) 15 gm PO Q15M PRN; Protocol PRN Reason: per Hypoglycemia Standing Ord. Piperacillin Sod/Tazobactam (Sod 3.375 gm/ Sodium Chloride) 50 mls @ 100 mls/hr IV Q6H [facility] Last Admin: 08/06/21 09:21 Dose: 100 mls/hr Documented by: Vancomycin HCl 1,250 mg/ (Sodium Chloride) 250 mls @ 166.667 mls/hr IV Q12H [facility] Last Infusion: 08/06/21 09:22 Dose: 0 mls/hr Documented by: Insulin Glargine (Insulin Glargine,Hum.Rec.Anlog 100 Unit/Ml 10 Ml Vial) 20 unit SUBCUT BID [facility] Last Admin: 08/06/21 09:22 Dose: 20 unit Documented by: Insulin Human Lispro (Insulin Lispro 100 Unit/Ml 3 Ml Vial) 0 unit SUBCUT QIDACHS [facility]; Protocol Last Admin: 08/06/21 08:00 Dose: Not Given Documented by: Morphine Sulfate (Morphine Sulfate 4 Mg/Ml Cartridge) 4 mg IVPUSH Q4H PRN; Protocol PRN Reason: Pain, Severe (Pain Scale 7-10) Ondansetron HCl (Ondansetron Hcl 4 Mg/2 Ml Vial) 4 mg IVPUSH Q8H PRN PRN Reason: Nausea and Vomiting Last Admin: 08/06/21 09:21 Dose: 4 mg Documented by: Pharmacy Consult (Consult Rx Vancomycin Dosing) 1 each MISCELLANE DAILY PRN PRN Reason: Consult order Sodium Chloride (0.9 % Sodium Chloride Flush 3 Ml Syringe) 3 ml IVFLUSH QSHIFT [facility] Last Admin: 08/06/21 09:22 Dose: 3 ml Documented by: Home Medications Medication Instructions Recorded Confirmed Last Taken Type ferrous sulfate 325 mg PO DAILY 05/06/20 08/04/21 08/04/21 08:00 History 325 mg (65 mg iron) tablet gabapentin 600 600 mg PO TID 05/06/20 08/04/21 08/04/21 14:00 History mg tablet insulin lispro 1 sliding scale 05/06/20 08/04/21 08/04/21 13:00 History 100 unit/mL dose SUBCUT QID subcutaneous solution (Admelog U-100 Insulin lispro) metformin 500 1,000 mg PO BID 05/06/20 08/04/21 08/04/21 08:00 History mg tablet insulin 20 unit SUBCUT 08/04/21 08/04/21 08/04/21 08:00 History glargine 100 BID unit/mL (3 mL) subcutaneous pen (Lantus Solostar U-100 Insulin) Physical Exam Verdana 4l Vital Signs: Verdana 4d Verdana 4d Vital Signs: Verdana 4d Verdana 4Bd Last Vital Signs Verdana 4d Hvac Sheet Metal Installer New 4d Hvac Sheet Metal Installer New 4d Temp 97.9 F 08/06/21 07:44 Hvac Sheet Metal Installer New 4d Pulse 89 08/06/21 07:44 Hvac Sheet Metal Installer New 4d Resp 18 08/06/21 07:44 BP 167/73 H 08/06/21 07:44 Pulse Ox 97 08/06/21 07:44 BMI result Body Mass Index 25.1 Const: General: comfortable and no acute distress Orientation/consciousness: patient oriented x3 Neck: Neck: Yes no lymphadenopathy Resp: Auscultation: clear to auscultation bilaterally Cardio: Rhythm: regular rhythm GI: Palpation (GI): Soft to palpation, nontender and no guarding Neuro: General: patient oriented x3 Extrem: Other: He has transmetatarsal amputation on both the left and right feet. Note of an ulcer on the plantar aspect of left foot, which appears to be dry currently,. There is noted edema of the as well as the left lower leg Results Labs Result diagrams: 08/07/21 06:14 08/07/21 06:14 Labs: Abnormal lab results 08/04/21 08/05/21 08/05/21 Range/Units 21:41 08:54 14:00 ESR (0-15) MM/HR POC Glucose 224 H (60-115) mg/dL Random Glucose (60-115) mg/dL Ferritin 386 H (20-250) ng/mL C-Reactive Protein 33.23 H (< or = 0.50) mg/dL 08/05/21 08/05/21 08/05/21 Range/Units 17:14 19:07 21:41 ESR 124 H (0-15) MM/HR POC Glucose 300 H 275 H (60-115) mg/dL Random Glucose (60-115) mg/dL Ferritin (20-250) ng/mL C-Reactive Protein (< or = 0.50) mg/dL 08/06/21 08/06/21 Range/Units 05:37 07:49 ESR (0-15) MM/HR POC Glucose 147 H (60-115) mg/dL Random Glucose 143 H (60-115) mg/dL Ferritin (20-250) ng/mL C-Reactive Protein (< or = 0.50) mg/dL BMP 08/06/21 08/06/21 05:37 05:37 Sodium 136 Potassium 4.1 Chloride 100 Carbon Dioxide 26 BUN 10 Creatinine 0.96 0.98 Calcium 8.4 D All other labs normal. MR/MR foot LT wo/w con IMPRESSION: Diffuse osteomyelitis throughout the tarsal bones including the talus, calcaneus, cuboid, cuneiforms, and remnant metatarsals. More mild osteoarthritis within the distal tibia and fibula. Small tibiotalar and trace posterior subtalar joint effusions with synovial enhancement, consistent with septic arthritis. Findings have significantly increased when compared to prior examinations.? Assessment and Plan (1) Osteomyelitis of ankle or foot, right, acute: Status: Acute His MRI shows diffuse osteomyelitis of the tarsal bones on the left. There is no drainable abscess. I had a long discussion with him about option of proceeding with BKA. He is still undecided at this time as he has been trying to save his foot for a long time he says. He wants to continue with antibiotics for now but he says he will review the option of BKA. I will follow him closely. He is to continue with IV antibiotic treatment for now. He has significant anemia and I would recommend for this as well in the meantime. Procedures Date of Service Date of Service: 08/06/21
[2021-08-06] MEDS: Morphine Sulfate 4 MG/ML CARTRIDGE IVPUSH ×4 (09:32→22:17)
--- NOTE | 2021-08-06 10:10 | MHC.CM.PN ---
CM MET W/PT PER HIS REQUEST, PT REQUESTING SOMEONE CALL HIS [employer] AND TO SIGN A RELEASE, PT SIGNED RELEASE OF INFORMATION AND CM CONTACTED PT'S [employer]ICKM[employer]ON APPRENTICE MONICA NAVA AT 10:[phone] FOR FAX NUMBER ([phone], RELEASE FAXED AND CM COTACT INFO PROVIDED, [employer] WILL NEED TO BE CONTACTED ONCE PT IS DISCHARGED.
--- NOTE | 2021-08-06 11:48 | P.PNIM_ITS ---
Subjective Subjective Date of Service: 08/06/21 Interval History: the patient was seen and evaluated this morning Laying in bed, feels cold and reporting vomiting Having drainage from the wound No reported other overnight events. Systemic review: No fever, chills with reported generalized weakness No chest pain, palpitation No shortness of breath or coughing No abdominal pain, nausea or vomiting No urinary symptoms Foot wound with drainage Physical Exam Verdana 4l Vital Signs: Verdana 4d Verdana 4d Vital Signs: Verdana 4d Verdana 4Bd Last Vital Signs Verdana 4d Marine Welder New 4d Marine Welder New 4d Temp 99.3 F 08/06/21 11:31 Marine Welder New 4d Pulse 85 08/06/21 11:31 Marine Welder New 4d Resp 18 08/06/21 11:31 BP 155/70 H 08/06/21 11:31 Pulse Ox 94 08/06/21 11:31 BMI result Body Mass Index 25.1 Const: Other: Constitutional : Alert, oriented, looks pale Neck : Normal inspection, Supple Cardiovascular : RRR, S1 S2, no lower extremity edema Respiratory : Good bilateral air entry, no crackles, wheezes or rhonchi Gastrointestinal: soft, lax, Normal bowel sounds, Non tender Skin : Warm, Dry, left foot with multiple open wounds with drainage noted Neurological : Alert & oriented x3, No focal deficit Objective Data Active Medications Acetaminophen (Acetaminophen 325 Mg Tablet) 650 mg PO Q6H PRN PRN Reason: Pain, Mild (Pain Scale 1-3) Dextrose (Dextrose 50 % 25 Gm/50 Ml Syringe) 25 gm IVPUSH Q15M PRN; Protocol PRN Reason: per Hypoglycemia Standing Ord. Docusate Sodium (Docusate Sodium 100 Mg Capsule) 100 mg PO DAILY PRN PRN Reason: Constipation Ferrous Sulfate (Ferrous Sulfate 324 Mg Tablet.) 324 mg PO DAILY [facility] Last Admin: 08/06/21 09:21 Dose: 324 mg Documented by: CAROLIN Gabapentin (Gabapentin 600 Mg Tablet) 600 mg PO TID [facility] Last Admin: 08/06/21 09:21 Dose: 600 mg Documented by: CAROLIN Glucose (Glucose Gel 15 Gm Gel..Gram.) 15 gm PO Q15M PRN; Protocol PRN Reason: per Hypoglycemia Standing Ord. Piperacillin Sod/Tazobactam (Sod 3.375 gm/ Sodium Chloride) 50 mls @ 100 mls/hr IV Q6H [facility] Last Infusion: 08/06/21 09:51 Dose: 0 mls/hr Documented by: CAROLIN Vancomycin HCl 1,250 mg/ (Sodium Chloride) 250 mls @ 166.667 mls/hr IV Q12H [facility] Last Infusion: 08/06/21 11:20 Dose: 0 mls/hr Documented by: CAROLIN Insulin Glargine (Insulin Glargine,Hum.Rec.Anlog 100 Unit/Ml 10 Ml Vial) 20 unit SUBCUT BID [facility] Last Admin: 08/06/21 09:22 Dose: 20 unit Documented by: CAROLIN Insulin Human Lispro (Insulin Lispro 100 Unit/Ml 3 Ml Vial) 0 unit SUBCUT QIDACHS [facility]; Protocol Last Admin: 08/06/21 08:00 Dose: Not Given Documented by: CAROLIN Non-Admin Reason: No Insulin Coverage Morphine Sulfate (Morphine Sulfate 4 Mg/Ml Cartridge) 4 mg IVPUSH Q4H PRN; Protocol PRN Reason: Pain, Severe (Pain Scale 7-10) Last Admin: 08/06/21 09:32 Dose: 4 mg Documented by: CAROLIN Ondansetron HCl (Ondansetron Hcl 4 Mg/2 Ml Vial) 4 mg IVPUSH Q8H PRN PRN Reason: Nausea and Vomiting Last Admin: 08/06/21 09:21 Dose: 4 mg Documented by: CAROLIN Pharmacy Consult (Consult Rx Vancomycin Dosing) 1 each MISCELLANE DAILY PRN PRN Reason: Consult order Sodium Chloride (0.9 % Sodium Chloride Flush 3 Ml Syringe) 3 ml IVFLUSH QSHIFT [facility] Last Admin: 08/06/21 09:22 Dose: 3 ml Documented by: CAROLIN Labs CBC & Chem 7: 08/05/21 08:54 08/06/21 05:37 Labs: Laboratory Results - last 24 hr 08/04/21 08/05/21 08/05/21 21:41 03:51 08:54 Smear Path Review SEE NOTE ESR Anion Gap Estim Creat Clear Calc Estimated GFR POC Glucose Random Glucose Lactic Acid F/U @ 2Hr 0.6 Calcium C-Reactive Protein 33.23 H Vancomycin Trough Acetone, Qual Negative 08/05/21 08/05/21 08/05/21 14:00 17:14 19:07 Smear Path Review ESR Anion Gap Estim Creat Clear Calc Estimated GFR POC Glucose 224 H 300 H 275 H Random Glucose Lactic Acid F/U @ 2Hr Calcium C-Reactive Protein Vancomycin Trough Acetone, Qual 08/05/21 08/06/21 08/06/21 21:41 05:37 05:37 Smear Path Review ESR 124 H Anion Gap 14 Estim Creat Clear Calc 111.1 108.8 Estimated GFR > 60 > 60 POC Glucose Random Glucose 143 H Lactic Acid F/U @ 2Hr Calcium 8.4 D C-Reactive Protein Vancomycin Trough Acetone, Qual 08/06/21 08/06/21 05:38 07:49 Smear Path Review ESR Anion Gap Estim Creat Clear Calc Estimated GFR POC Glucose 147 H Random Glucose Lactic Acid F/U @ 2Hr Calcium C-Reactive Protein Vancomycin Trough 11.1 Acetone, Qual Microbiology Microbiology Results: Microbiology 08/04/21 21:41 Blood Culture - Preliminary Blood - Venous No growth after 24 hours. 08/04/21 21:41 Blood Culture - Preliminary Blood - Venous No growth after 24 hours. Assessment and Plan (1) Non-healing ulcer: Status: Acute (2) Osteomyelitis: Status: Acute (3) Diabetic infection of left foot: Status: Acute Plan 36-year-old male with past medical history of diabetes with history of osteomyelitis and amputation of metatarsals in feet bilaterally presents to the hospital complaining of nonhealing wound # foot osteomyelitis # 2/2 nonhealing diabetic foot ulcer of the left foot MRI showed evidence of worsening osteomyelitis in the foot bones Pending blood cultures continue broad-spectrum antibiotics Id input appreciated General surgery for possible amputation For continue wound care # normocytic anemia likely secondary to chronic disease Pending ferritin, B12 and folic acid To transfuse a unit of blood for hemoglobin of lower than 7 # diabetes continue home glargine sliding scale insulin, diabetic diet DVT prophylaxis Heparin Quality Stroke Does the patient have a stroke diagnosis?: No VTE Prior VTE?: No VTE Risk Level:: Medical - moderate - high VTE Device Contraindication: Treatment Not Indicated VTE Drug Contraindication: N/A - Med Ordered
[2021-08-06 12:03] LABS: Glucose, Whole Blood 216 mg/dL (60-115)
[2021-08-06] MEDS: Insulin Lispro 100 UNIT/ML 3 ML VIAL SUBCUT ×3 (12:39→20:58)
[2021-08-06] MEDS: Heparin Sodium,Porcine 5,000 UNIT/ML VIAL 5000 UNIT SUBCUT ×2 (12:39→20:57)
--- NOTE | 2021-08-06 14:37 | MHC.CLN ---
NUTRITION PATIENT WITH DIABETIC ULCERS. INCREASING DIETARY CALORIES TO DIABETIC 2000 KCAL AND ADDING GLUCERNA BID TO PROMOTE NUTRITIONAL INTAKE. GLUCERNA PROVIDES 474 KCAL, 20 G PROTEIN.
[2021-08-06 16:05] LABS: Glucose, Whole Blood 268 mg/dL (60-115)
[2021-08-06 20:49] LABS: Glucose, Whole Blood 196 mg/dL (60-115)
[2021-08-07] MEDS: Morphine Sulfate 4 MG/ML CARTRIDGE IVPUSH (02:26)
[2021-08-07 03:44] VITALS: BP 170/81; PULSE 86; RESP 16; TEMP 37.1; O2SAT 98
[2021-08-07] MEDS: Piperacillin Sodium/Tazobactam 3.375 GM in 0.9 % Sodium Chloride 50 ML IV (03:51)
[2021-08-07] MEDS: Heparin Sodium,Porcine 5,000 UNIT/ML VIAL 5000 UNIT SUBCUT (04:23)
[2021-08-07] MEDS: ondansetron HCL 4 MG/2 ML VIAL IVPUSH (04:30)
[2021-08-07 06:44] LABS: Hematocrit 26.9 % (42.0-52.0); Hemoglobin 8.8 g/dl (14.0-18.0); Mean Corpuscular HGB Conc 32.7 g/dl (31.0-36.0); Mean Corpuscular Hemoglobin 26.7 pg (27.0-33.0); Mean Corpuscular Volume 81.5 fL (80.0-98.0); Mean Platelet Volume 9.7 fL (9.4-12.4); NRBC Pct Auto 0.2 /100WBC (0.0-0.2); Platelet Count 342 X10*3/uL (160-400); White Blood Count 8.6 X10*3/uL (4.8-10.8)
[2021-08-07 06:52] LABS: Anion Gap 14 (12-20); Blood Urea Nitrogen 6 mg/dL (9-16); Calcium 8.9 mg/dL (8.4-10.2); Carbon Dioxide 29 mmol/L (22-29); Chloride 101 mmol/L (96-108); Creatinine Clr Calc Pharmacy 107.7; Estimated Glomerular Filt Rate > 60; Glucose Random 169 mg/dL (60-115); Potassium 4.2 mmol/L (3.3-5.1); Sodium 140 mmol/L (135-145)
[2021-08-07 07:01] LABS: Vancomycin Trough 13.5 mcg/mL (10.0-20.0)
--- NOTE | 2021-08-07 07:17 | HE.PHANOTE ---
Vancomycin Dosing Addendum Patient reviewed, dose increased to 1250 mg q12h yesterday, trough 13.5 today. Next trough 08/08/21 @1800.
[2021-08-07 07:19] VITALS: BP 172/88; PULSE 77; RESP 18; TEMP 36.7; O2SAT 98
--- NOTE | 2021-08-07 08:31 | PC.NURSE ---
At 0811 patient not in his room, empty belongings bag found on top of his bed. This RN did not have a contact with the patient this morning yet but [employer] was early taking his VS and POC.Per her report patient was in good mood and was not complaining about anything,alert and oriented.Per RN shift report night RN stated that patient told her his mother and will probably be leaving. ,nursing superviser and security notified. Security searching.Patient potentially left with 2 IV sites.
[2021-08-07 08:39] LABS: Glucose, Whole Blood 159 mg/dL (60-115)
--- NOTE | 2021-08-07 10:00 | PM.EVENT ---
Event Note Date of Service: 08/07/21 Event Note: Discharge summary Discharge diagnosis Osteomyelitis of left foot Patient was treated with IV antibiotic with evaluation with surgery and infectious disease specialist. This morning he eloped the hospital without telling anyone. I did not see him before he left.
--- NOTE | 2021-08-07 10:00 | MHC.CM.PN ---
PER [facility] PT HAS ELOPED FROM UNIT, CM CHANGE MANAGEMENT CONSULTANT ATTEMPTED TO CONTACT PT'S SENIOR MANAGER ASSET PROTECTION AT [phone], NO ANSWER AND MESSAGE LEFT.
== END 2021-08-07 08:11 | disposition left against medical advice (07) | DRG 344 ==
LOC: HO.ED 08-05 00:22 → HO.EDOVER 08-05 03:30 → HO.S3 08-05 16:23
PROVIDERS: Nurse Practitioner Family; Admitting Provider Internal Medicine; Emergency Provider Internal Medicine; PCP Internal Medicine; Visit Provider Student in an Organized Health Care Education/Training Program
DX: E11.69 Type 2 diabetes mellitus with other specified complication (principal); M86.171 Other acute osteomyelitis, right ankle and foot; E11.621 Type 2 diabetes mellitus with foot ulcer; L97.429 Non-pressure chronic ulcer of left heel and midfoot with unspecified severity; D63.8 Anemia in other chronic diseases classified elsewhere; D64.9 Anemia, unspecified; F17.210 Nicotine dependence, cigarettes, uncomplicated; L02.612 Cutaneous abscess of left foot; Z20.822 Contact with and (suspected) exposure to COVID-19; Z71.6 Tobacco abuse counseling; Z79.4 Long term (current) use of insulin; Z79.84 Long term (current) use of oral hypoglycemic drugs; Z79.899 Other long term (current) drug therapy
CPT/HCPCS: 36415; 73630; 73706; 73720; 80048; 80202; 82009; 82565; 82607; 82728; 82746; 82947; 83605; 85025; 85027; 85652; 86140; 86850; 86900; 86901; 86923; 87040; 87077; 87186; 87205; 87635; 93926; 93971; 96361; 96365; 96367; 99285; 99291; A9585; J0696; J2270; J2405; J2543; J3370; P9016; Q9967

== ENCOUNTER 2021-08-16 22:55 | Inpatient (IN) | payer MEDICAID, SELFPAY ==
--- NOTE | ~2021-08-16 | US_ITS ---
EXAMINATION: US VENOUS ULTRASOUND WITH DOPPLER LOWER EXTREMITY, LEFT CLINICAL INFORMATION: Left leg pain. Evaluate for a deep vein thrombosis. COMPARISON: Left lower extremity CT angiogram dated 08/05/2021. TECHNIQUE: Ultrasound of the deep veins is performed from the hip to the calf with compression sonography and color and pulse Doppler assessment. Spectral analysis with color-flow imaging is performed. FINDINGS: There is normal venous compression and respiratory variation and augmented flow. The visualized common femoral vein, superficial femoral vein, profunda femoral vein, popliteal vein, and the trifurcation region shows no evidence of deep venous thrombosis. There is no significant popliteal fossa cyst. Multiple enlarged lymph nodes within the proximal left thigh with the largest measuring up to 3.1 x 1.5 x 2.1 cm. If the patient's symptoms persist, followup ultrasound in 5-7 days might be of value to exclude proximal propagation from a non-visualized calf vein. US/US venous duplex LE LT IMPRESSION: No DVT demonstrated in the left lower extremity. Enlarged proximal left thigh lymph nodes measuring up to 3.1 x 1.5 x 2.1 cm. Findings are similar when compared to the recent CTA.
--- NOTE | ~2021-08-16 | XR_ITS ---
EXAMINATION: XR CHEST CLINICAL INFORMATION: Preop COMPARISON: None TECHNIQUE: 11/06/2018 view of the chest was obtained. FINDINGS: Lung volumes are symmetric. No focal consolidation is seen. No evidence of pneumothorax, pleural effusion, or overt pulmonary edema. The cardiomediastinal contour is unremarkable. No acute osseous findings are seen. XR/XR chest 1V IMPRESSION: No acute cardiopulmonary findings.
[2021-08-16 23:38] VITALS: BP 136/70; PULSE 90; RESP 16; TEMP 36.8; O2SAT 100; BMI 25.1
--- NOTE | 2021-08-17 00:07 | ED_ITS ---
HPI - Extremity Problem General Chief complaint: Extremity Problem Stated complaint: diabetic, L foot is swollen Time Seen by Provider: 08/16/21 23:14 Source: patient Mode of arrival: ambulatory Limitations: no limitations History of Present Illness HPI Narrative: Patient's history of diabetes osteomyelitis IV drug user amputation of metatarsal comes here with left foot nonhealing ulcer patient left AMA on 08/07 when MRI showed worsening osteomyelitis and blood culture was positive for M MRSA patient said that had a family emergency not taking any antibiotic for last 1 week denies any fever or increased pain no shortness of breath no palpitation Related Data Home Medications Medication Instructions Recorded Confirmed ferrous sulfate 325 mg (65 325 mg PO DAILY 05/06/20 08/17/21 mg iron) tablet gabapentin 600 mg tablet 600 mg PO TID 05/06/20 08/17/21 insulin lispro 100 unit/mL 1 sliding scale dose SUBCUT 05/06/20 08/17/21 QID subcutaneous solution (Admelog U-100 Insulin lispro) metformin 500 mg tablet 1,000 mg PO BID 05/06/20 08/17/21 insulin glargine 100 unit/mL 20 unit SUBCUT BID 08/04/21 08/17/21 (3 mL) subcutaneous pen (Lantus Solostar U-100 Insulin) pen needle, diabetic 31 08/17/21 08/17/21 gauge x 3/16 (BD Ultra-Fine Mini Pen Needle) Allergies Allergy/AdvReac Type Severity Reaction Status Date / Time No Known Allergies Allergy Verified 08/04/21 21:26 [No Known Allergies*] Review of Systems Verdana 4l Review of Systems: Yes all other systems are reviewed and Verdana 4d are negative [facility] Past Medical History Medical History Anemia Diabetes Foot abscess, left History of substance use Non-healing ulcer of right foot Osteomyelitis Surgical History History of appendectomy History of carpal tunnel surgery of left wrist History 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 Family History Family History Mother Breast cancer CVD (cardiovascular disease) Diabetes Cancer Father Diabetes CVD (cardiovascular disease) Social History Social History Household Members: None Housing: Apartment Housing Other:: patient states his belongings are in his truck Do you presently have visiting nurse or other home services: No Unable to assess alcohol history related to: Unknown Alcohol intake: former Patient Tobacco Use Status: Current everyday Tobacco user Tobacco use type: Cigarette Cigarette Packs Per Day: 0.5 Cigarettes Per Day: 10.0 Years Smoked: 30 Second Hand Smoke Exposure: No Use of substances other than those prescribed or required for medical reasons: No Advance Directives: No service: No Current occupational status: unemployed Physical Exam Verdana 4l Vital Signs: Verdana 4d Verdana 4d Vital Signs: Verdana 4d Verdana 4Bd Last Vital Signs Verdana 4d Chlorine Cells Operator New 4d Chlorine Cells Operator New 4d Temp 98.2 F 08/17/21 04:05 Chlorine Cells Operator New 4d Pulse 75 08/17/21 04:05 Chlorine Cells Operator New 4d Resp 16 08/17/21 04:05 BP 117/61 08/17/21 04:05 Pulse Ox 96 08/17/21 04:05 BMI result Body Mass Index 25.1 Appearance: Alert. Oriented X3. No acute distress. Eyes: No pallor or icterus ENT: Pharynx normal. Oral Mucosa moist Neck: Normal inspection. Neck supple. CVS: Normal heart rate and rhythm. Pulses normal. No murmur or rub Respiratory: No respiratory distress. Equal air entry bilateral, no wheezing/rales/rhonchi Abdomen: Soft and nontender. Bowel sounds are present, no mass palpable, no CVA tenderness Skin: Skin warm and dry. Normal skin color. Normal skin turgor. Extremities: Bilateral metatarsal amputation, left foot with ulcer at the sole with erythema and warmth till mid asher Neuro: Oriented X 3. MDM - Extremity (Nontraumatic) MDM Narrative Medical decision making narrative: Patient with MRSA bacteremia with osteomyelitis of left foot already diagnosed on 08/07 when he left AMA IV fluids were given antibiotic vancomycin Zosyn started admit the patient for surgery evaluation Lab Data Result diagrams: 08/17/21 03:11 08/17/21 03:11 Labs: Lab Results 08/17/21 08/17/21 08/17/21 Range/Units 00:23 00:23 00:23 WBC 10.1 (4.8-10.8) X10*3/uL RBC 3.37 L (4.60-5.80) X10*6/uL Hgb 8.7 L (14.0-18.0) g/dl Hct 27.1 L (42.0-52.0) % MCV 80.4 (80.0-98.0) fL MCH 25.8 L (27.0-33.0) pg MCHC 32.1 (31.0-36.0) g/dl RDW 13.4 (11.0-16.0) % Plt Count 421 H (160-400) X10*3/uL MPV 9.8 (9.4-12.4) fL Immature Gran % (Auto) 0.2 (0.0-0.4) % Neut % (Auto) 84.1 H (45-73) % Lymph % (Auto) 8.6 L (20-40) % [place] % (Auto) 5.7 (2-11) % Eos % (Auto) 1.0 (0-4) % Baso % (Auto) 0.4 (0-2) % Lymph # (Auto) 0.9 L (1.2-4.9) X10*3/uL [place] # (Auto) 0.6 (0.1-1.2) X10*3/uL Eos # (Auto) 0.1 (0.0-0.4) X10*3/uL Baso # (Auto) 0.0 (0.0-0.2) X10*3/uL Abs Immat Gran (auto) 0.02 (0.00-0.03) X10*3/uL Absolute Neuts (auto) 8.5 H (2.0-8.3) x10*3/uL Absolute Nucleated RBC 0.000 (0.0-0.012) X10*3/uL Nucleated RBC % (auto) 0.0 (0.0-0.2) /100WBC PT 16.2 H (9.9-13.0) SEC INR 1.4 H (0.9-1.1) Sodium (135-145) mmol/L Potassium (3.3-5.1) mmol/L Chloride (96-108) mmol/L Carbon Dioxide (22-29) mmol/L Anion Gap (12-20) BUN (9-16) mg/dL Creatinine (0.5-1.4) mg/dL Estim Creat Clear Calc Estimated GFR Random Glucose (60-115) mg/dL Lactic Acid 3.1 H* (0.5-2.0) mmol/L Calcium (8.4-10.2) mg/dL Total Bilirubin (0.0-1.0) mg/dL AST (5-37) U/L ALT (0-40) U/L Alkaline Phosphatase (39-117) U/L Total Protein (6.5-8.0) g/dL Albumin (3.5-5.0) g/dL COVID-19 ([facility]) (Negative) COVID-19 Clin Com 08/17/21 08/17/21 Range/Units 00:23 00:42 WBC (4.8-10.8) X10*3/uL RBC (4.60-5.80) X10*6/uL Hgb (14.0-18.0) g/dl Hct (42.0-52.0) % MCV (80.0-98.0) fL MCH (27.0-33.0) pg MCHC (31.0-36.0) g/dl RDW (11.0-16.0) % Plt Count (160-400) X10*3/uL MPV (9.4-12.4) fL Immature Gran % (Auto) (0.0-0.4) % Neut % (Auto) (45-73) % Lymph % (Auto) (20-40) % [place] % (Auto) (2-11) % Eos % (Auto) (0-4) % Baso % (Auto) (0-2) % Lymph # (Auto) (1.2-4.9) X10*3/uL [place] # (Auto) (0.1-1.2) X10*3/uL Eos # (Auto) (0.0-0.4) X10*3/uL Baso # (Auto) (0.0-0.2) X10*3/uL Abs Immat Gran (auto) (0.00-0.03) X10*3/uL Absolute Neuts (auto) (2.0-8.3) x10*3/uL Absolute Nucleated RBC (0.0-0.012) X10*3/uL Nucleated RBC % (auto) (0.0-0.2) /100WBC PT (9.9-13.0) SEC INR (0.9-1.1) Sodium 132 L (135-145) mmol/L Potassium 5.0 (3.3-5.1) mmol/L Chloride 93 L (96-108) mmol/L Carbon Dioxide 29 (22-29) mmol/L Anion Gap 15 (12-20) BUN 21 H D (9-16) mg/dL Creatinine 1.27 (0.5-1.4) mg/dL Estim Creat Clear Calc 83.9 Estimated GFR > 60 Random Glucose 398 H* (60-115) mg/dL Lactic Acid (0.5-2.0) mmol/L Calcium 9.2 (8.4-10.2) mg/dL Total Bilirubin 0.5 (0.0-1.0) mg/dL AST 29 D (5-37) U/L ALT 13 (0-40) U/L Alkaline Phosphatase 100 (39-117) U/L Total Protein 7.5 (6.5-8.0) g/dL Albumin 3.0 L (3.5-5.0) g/dL COVID-19 ([facility]) Negative (Negative) COVID-19 Clin Com See Note Discharge Plan Discharge Clinical Impression: Foot osteomyelitis, left, Diabetes Patient Disposition: Admitted As Inpatient
[2021-08-17 00:30] LABS: Basophils Percent Auto 0.4 % (0-2); Eosinophils Absolute Auto 0.1 X10*3/uL (0.0-0.4); Hematocrit 27.1 % (42.0-52.0); Hemoglobin 8.7 g/dl (14.0-18.0); Imm Gran Abs Auto 0.02 X10*3/uL (0.00-0.03); Imm Gran Pct Auto 0.2 % (0.0-0.4); Lymphocytes Absolute Auto 0.9 X10*3/uL (1.2-4.9); Lymphocytes Percent Auto 8.6 % (20-40); MANUAL DIFF FLAG NO; Mean Corpuscular HGB Conc 32.1 g/dl (31.0-36.0); Mean Corpuscular Hemoglobin 25.8 pg (27.0-33.0); Mean Corpuscular Volume 80.4 fL (80.0-98.0); Mean Platelet Volume 9.8 fL (9.4-12.4); Monocytes Absolute Auto 0.6 X10*3/uL (0.1-1.2); Monocytes Percent Auto 5.7 % (2-11); Neutrophils Absolute Auto 8.5 x10*3/uL (2.0-8.3); Neutrophils Percent Auto 84.1 % (45-73); Platelet Count 421 X10*3/uL (160-400); Red Blood Count 3.37 X10*6/uL (4.60-5.80); Red Cell Distribution Width 13.4 % (11.0-16.0); White Blood Count 10.1 X10*3/uL (4.8-10.8)
[2021-08-17 00:45] LABS: INTERNATIONAL NORM RATIO 1.4 (0.9-1.1); Prothrombin Time 16.2 SEC (9.9-13.0)
[2021-08-17 00:49] LABS: Lactic Acid 3.1 mmol/L (0.5-2.0)
[2021-08-17 00:56] LABS: COVID-19 Test Negative (Negative); IDNOW Serial# 9DD0AD1C
[2021-08-17] MEDS: 0.9 % Sodium Chloride 1,000 ML 999 ML IV ×2 (00:57)
[2021-08-17] MEDS: Piperacillin Sodium/Tazobactam 3.375 GM in 0.9 % Sodium Chloride 50 ML IV (01:12)
[2021-08-17 01:15] LABS: Alanine Aminotransferase 13 U/L (0-40); Alkaline Phosphatase 100 U/L (39-117); Anion Gap 15 (12-20); Aspartate Amino Transferase 29 U/L (5-37); Bilirubin Total 0.5 mg/dL (0.0-1.0); Blood Urea Nitrogen 21 mg/dL (9-16); Calcium 9.2 mg/dL (8.4-10.2); Carbon Dioxide 29 mmol/L (22-29); Chloride 93 mmol/L (96-108); Creatinine Clr Calc Pharmacy 83.9; Estimated Glomerular Filt Rate > 60; Glucose Random 398 mg/dL (60-115); Sodium 132 mmol/L (135-145); Total Protein 7.5 g/dL (6.5-8.0)
[2021-08-17] MEDS: vancomycin HCL 1,000 MG in 0.9 % Sodium Chloride 250 ML 270 MG IV ×2 (01:47→14:24)
[2021-08-17 02:29] LABS: Reflex Lactate? Lactic Acid Added
--- NOTE | 2021-08-17 02:50 | P.HPHOSP_ITS ---
History of Present Illness Date of Service: 08/17/21 Chief Complaint: Left foot pain 36-year-old male with a past medical history of diabetes, diabetic neuropathy, history of diabetic foot infection/osteomyelitis status post left foot tarsometatarsal amputation, history of foot ulcer on the stump; substance abuse, anemia , recent admission to the hospital for left foot osteomyelitis/MRSA bacteremia, [facility] on 08/04/[facility]21 interrupting the treatment presented to the hospital today with a chief complaint of increased left foot pain. [facility] Medical History Anemia Diabetes Diabetic infection of left foot Foot abscess, left Foot osteomyelitis, left History of substance use Non-healing ulcer Non-healing ulcer of right foot Osteomyelitis Osteomyelitis Family History Mother Breast cancer CVD (cardiovascular disease) Diabetes Cancer Father Diabetes CVD (cardiovascular disease) Pertinent family history: As above Surgical History History of appendectomy History of carpal tunnel surgery of left wrist History 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 Social History Household Members: Friend(s) Housing: House Housing Other:: patient states his belongings are in his truck Do you presently have visiting nurse or other home services: No Unable to assess alcohol history related to: Unknown Alcohol intake: former Patient Tobacco Use Status: Current everyday Tobacco user Tobacco use type: Cigarette Cigarette Packs Per Day: 0.5 Cigarettes Per Day: 10 Years Smoked: 30 Second Hand Smoke Exposure: No Substance Use Type: Heroin and IV Drugs service: No Current occupational status: unemployed Meds Allergies Allergy/AdvReac Type Severity Reaction Status Date / Time No Known Allergies Allergy Verified 09/09/21 10:10 [No Known Allergies*] Active Medications: Current Medications Acetaminophen (Acetaminophen 325 Mg Tablet) 650 mg PO Q6H PRN PRN Reason: Pain, Mild (Pain Scale 1-3) Dextrose (Dextrose 50 % 25 Gm/50 Ml Syringe) 25 gm IVPUSH Q15M PRN; Protocol PRN Reason: per Hypoglycemia Standing Ord. Enoxaparin Sodium (Enoxaparin Sodium 40 Mg/0.4 Ml Syringe) 40 mg SUBCUT Q24H DAYNA Gabapentin (Gabapentin 600 Mg Tablet) 600 mg PO TID [facility] Glucose (Glucose Gel 15 Gm Gel..Gram.) 15 gm PO Q15M PRN; Protocol PRN Reason: per Hypoglycemia Standing Ord. Vancomycin HCl 1,000 mg/ (Sodium Chloride) 270 mls @ 270 mls/hr IV Q12H [facility] Insulin Glargine (Insulin Glargine,Hum.Rec.Anlog 100 Unit/Ml 10 Ml Vial) 10 unit SUBCUT BID [facility] Insulin Human Lispro (Insulin Lispro 100 Unit/Ml 3 Ml Vial) 0 unit SUBCUT QIDACHS [facility]; Protocol Melatonin (Melatonin 3 Mg Tablet) 6 mg PO BEDTIME PRN PRN Reason: Insomnia Pharmacy Consult (Consult Rx Vancomycin Dosing) 1 each MISCELLANE DAILY PRN PRN Reason: Consult order Pharmacy Consult (Consult Rx Vancomycin Dosing) 1 each MISCELLANE DAILY PRN PRN Reason: Consult order Senna (Sennosides 8.6 Mg Tablet) 17.2 mg PO BEDTIME PRN PRN Reason: Constipation Sodium Chloride (0.9 % Sodium Chloride Flush 3 Ml Syringe) 3 ml IVFLUSH QSHIFT [facility] Home Medications Medication Instructions Recorded Confirmed Last Taken Type ferrous sulfate 325 mg (65 mg 325 mg PO DAILY 05/06/20 08/17/21 08/04/21 08:00 History iron) tablet gabapentin 600 mg tablet 600 mg PO TID 05/06/20 08/17/21 08/04/21 14:00 History insulin lispro 100 unit/mL 1 sliding scale dose SUBCUT QID 05/06/20 08/17/21 08/04/21 13:00 History subcutaneous solution (Admelog U-100 Insulin lispro) metformin 500 mg tablet 1,000 mg PO BID 05/06/20 08/17/21 08/04/21 08:00 History insulin glargine 100 unit/mL (3 20 unit SUBCUT BID 08/04/21 08/17/21 08/04/21 08:00 History mL) subcutaneous pen (Lantus Solostar U-100 Insulin) pen needle, diabetic 31 gauge x 08/17/21 08/17/21 Unknown History 09/23 (BD Ultra-Fine Mini Pen Needle) Physical Exam Vital Signs and Narrative: Vital Signs: Last Vital Signs Temp 98.3 F 08/16/21 23:38 Pulse 90 08/16/21 23:38 Resp 16 08/16/21 23:38 BP 136/70 08/16/21 23:38 Pulse Ox 100 08/16/21 23:38 BMI result Body Mass Index 25.1 Gen: Appears be in no acute distress HEENT: NCAT, Moist mucosa. Pulmonary: Vesicular breath sounds, fair air entry CVS: Normal S1-S2 Abdomen: BS+, Soft, Nontender Extremities: Warm well perfused; left foot stump has open ulcer, no discharge, warm and tender. Neuro: Alert and awake. Results Labs CBC and Chem 7: 08/25/21 06:04 08/26/21 05:55 Labs: Laboratory Results - last 24 hr 08/17/21 08/17/21 08/17/21 00:23 00:23 00:23 MCV 80.4 MCH 25.8 L MCHC 32.1 RDW 13.4 Plt Count 421 H MPV 9.8 Immature Gran % (Auto) 0.2 Neut % (Auto) 84.1 H Lymph % (Auto) 8.6 L [place] % (Auto) 5.7 Eos % (Auto) 1.0 Baso % (Auto) 0.4 Lymph # (Auto) 0.9 L [place] # (Auto) 0.6 Eos # (Auto) 0.1 Baso # (Auto) 0.0 Abs Immat Gran (auto) 0.02 Absolute Neuts (auto) 8.5 H Absolute Nucleated RBC 0.000 Nucleated RBC % (auto) 0.0 PT 16.2 H INR 1.4 H Anion Gap Estim Creat Clear Calc Estimated GFR Random Glucose Lactic Acid 3.1 H* Calcium Total Bilirubin AST ALT Alkaline Phosphatase Total Protein Albumin COVID-19 ([facility]) COVID-19 Clin Com 08/17/21 08/17/21 00:23 00:42 MCV MCH MCHC RDW Plt Count MPV Immature Gran % (Auto) Neut % (Auto) Lymph % (Auto) [place] % (Auto) Eos % (Auto) Baso % (Auto) Lymph # (Auto) [place] # (Auto) Eos # (Auto) Baso # (Auto) Abs Immat Gran (auto) Absolute Neuts (auto) Absolute Nucleated RBC Nucleated RBC % (auto) PT INR Anion Gap 15 Estim Creat Clear Calc 83.9 Estimated GFR > 60 Random Glucose 398 H* Lactic Acid Calcium 9.2 Total Bilirubin 0.5 AST 29 D ALT 13 Alkaline Phosphatase 100 Total Protein 7.5 Albumin 3.0 L COVID-19 ([facility] KATE) Negative COVID-19 Clin Com See Note Imaging Radiologist's Impressions: Impressions Chest X-Ray 08/17/21 01:02 IMPRESSION: No acute cardiopulmonary findings. Assessment and Plan (1) Non-healing ulcer: (2) Osteomyelitis: Qualifiers: Laterality: left Osteomyelitis location: foot Osteomyelitis type: unspecified type Qualified Code(s): M86.9 - Osteomyelitis, unspecified (3) Diabetic infection of left foot: (4) Diabetes: Plan 36-year-old male with a past medical history of diabetes, diabetic neuropathy, history of diabetic foot infection/osteomyelitis status post left foot tarsometatarsal amputation, history of foot ulcer on the stump; substance abuse, anemia , recent admission to the hospital for left foot osteomyelitis/MRSA bacteremia, [facility] 08/04/[facility]21 interrupting the treatment presented to the hospital today with a chief complaint of increased left foot pain. Left diabetic foot ulcer/osteomyelitis/MRSA bacteremia: Recent MRI showed osteomyelitis of the foot bones. General surgery has evaluated the patient in the pastplanned for possible amputation. Will re-consult Id consult Continue IV vancomycin Echocardiogram History of anemia: Patient on iron supplementation. Monitor CBC. History of diabetes: Will keep the patient on Lantus 10 units and insulin sliding scale. Monitor fingerstick glucose and adjust as needed. History of neuropathy: Continue home gabapentin DVT prophylaxis: [facility] Code status: Full code Quality Stroke Does the patient have a stroke diagnosis?: No VTE Prior VTE?: No VTE Risk Level:: Medical - moderate - high VTE Device Contraindication: Treatment Not Indicated VTE Drug Contraindication: N/A - Med Ordered
[2021-08-17 03:16] LABS: MANUAL DIFF FLAG NO
[2021-08-17 03:17] LABS: Basophils Percent Auto 0.2 % (0-2); Eosinophils Absolute Auto 0.1 X10*3/uL (0.0-0.4); Hematocrit 23.8 % (42.0-52.0); Hemoglobin 7.7 g/dl (14.0-18.0); Imm Gran Abs Auto 0.02 X10*3/uL (0.00-0.03); Imm Gran Pct Auto 0.2 % (0.0-0.4); Lymphocytes Percent Auto 11.5 % (20-40); Mean Corpuscular HGB Conc 32.4 g/dl (31.0-36.0); Mean Corpuscular Volume 80.4 fL (80.0-98.0); Mean Platelet Volume 9.1 fL (9.4-12.4); Monocytes Absolute Auto 0.5 X10*3/uL (0.1-1.2); Monocytes Percent Auto 5.9 % (2-11); Neutrophils Percent Auto 81.2 % (45-73); Platelet Count 325 X10*3/uL (160-400); Red Blood Count 2.96 X10*6/uL (4.60-5.80); Red Cell Distribution Width 13.3 % (11.0-16.0); White Blood Count 8.6 X10*3/uL (4.8-10.8)
[2021-08-17 03:28] LABS: ~Lactic Acid-LAB USE ONLY 0.6 mmol/L (0.5-2.0)
[2021-08-17 03:36] LABS: Anion Gap 14 (12-20); Blood Urea Nitrogen 20 mg/dL (9-16); Calcium 8.4 mg/dL (8.4-10.2); Carbon Dioxide 27 mmol/L (22-29); Chloride 96 mmol/L (96-108); Creatinine Clr Calc Pharmacy 91.1; Estimated Glomerular Filt Rate > 60; Glucose Random 375 mg/dL (60-115); Potassium 5.3 mmol/L (3.3-5.1); Sodium 132 mmol/L (135-145)
[2021-08-17 04:05] VITALS: BP 117/61; PULSE 75; RESP 16; TEMP 36.8; O2SAT 96
[2021-08-17] MEDS: Heparin Sodium,Porcine 5,000 UNIT/ML VIAL 5000 UNIT SUBCUT ×3 (04:35→19:20)
--- NOTE | 2021-08-17 04:36 | PC.NURSE ---
I assumed care of this pt upon his arrival to bed 19 from the waiting room. He arrives for evaluation of L foot diabetic ulcer on the bottom portion of his L foot. Of note, the toes from his L foot were amputated in the past. There is a round area approximately the size of a half dollar coin on the bottom of his left foot that appears open with dried yellow drainage. MD Issa did visualize this. The pt states he was here approximately one week ago and they were saying the infection is in the bone and they'll probably have to amputate above the ankle. He is alert and oriented x 3, calm and cooperative, makes eye contact with RN and has a flat affect. Respirations are non-labored, pt speaks in full sentences, no cyanosis, room air sat's 95% or better. IV access/labs/blood cultures obtained. IVF's and IV Abx are infusing. pt is sleeping and awaiting inpatient bed assignment and he verbalized an understanding of this. We will continue to monitor Paulo.
--- NOTE | 2021-08-17 07:08 | PHA.PROG ---
Admission Date/Time: August 17, 2021 02:37 Indication Bacteremia Weight in k.647 kg Adjusted body weight in Kg: [place] body weight in Kg: Obesity Dosing Indication % IBW: Serum Creatinine - Last 168 Hours 08/17/21 08/17/21 00:42 03:11 Creatinine 1.27 1.17 Estimated CrCl and GFR - Last 168 Hours 08/17/21 08/17/21 00:42 03:11 Estim Creat Clear Calc 83.9 91.1 Estimated GFR > 60 > 60 Vancomycin Loading Dose: 1000mg given in ED Current Vancomycin Dosing Regimen: 1000MG Q12H (12.2 MG/KG) Vancomycin Monitoring using AUC goal of 400 - 600 range with trough as surrogate marker: AUC 516; TROUGH 16.5 Date and Time for next Vancomycin Level to be drawn: 08/18 @1200 Pharmacist Comments on Vancomycin Plan: Vancomycin dosing will take advantage of [employer] as a clinical decision support tool that uses Bayesian modeling to calculate individual patient's pharmacokinetic parameters and forecast the patient's drug concentration time course with the target goal AUC 24 range of 400 - 600 mg/L/hr.
[2021-08-17 07:35] LABS: Glucose, Whole Blood 316 mg/dL (60-115)
--- NOTE | 2021-08-17 07:48 | PHA.MEDREC ---
Pharmacy Consult ? Medication Reconciliation RN completed med rec... pharmacy reviewed. Pt last took all medications on 08/17/21. Pt switches from Basaglar between Basaglar and Lantus depending on what [employer] covers. .
[2021-08-17] MEDS: Gabapentin 600 MG TABLET PO ×3 (07:52→22:31)
[2021-08-17] MEDS: Insulin Glargine,Hum.rec.anlog 100 UNIT/ML 10 ML VIAL 10 UNIT SUBCUT ×2 (07:52→21:00)
[2021-08-17] MEDS: Insulin Lispro 100 UNIT/ML 3 ML VIAL SUBCUT ×4 (07:52→22:32)
[2021-08-17 07:55] VITALS: BP 137/76; PULSE 90; RESP 19; O2SAT 98
[2021-08-17] MEDS: 0.9 % Sodium Chloride Flush 3 ML SYRINGE IVFLUSH (07:56)
--- NOTE | 2021-08-17 11:05 | P.CONGS_ITS ---
History of Present Illness Consult details Consult date: 08/17/21 Narrative: 36-year-old male who is well known to me, admitted last night because of left foot pain and pain on the lower posterior leg. I had seen him last week in the hospital because of mostly mellitus of multiple tarsal bones foot which has a transmetatarsal amputation stump. There was note of some fluid as well on the tibiotalar area suggestive of septic arthritis. The patient had refused BKA and was sent home for long-term IV antibiotics. He came back last night because of this persistent pain. Otherwise, there is no significant drainage on the plantar aspect where he had an ulcer. He denies any fever or chills. Review of Systems Constitutional: Constitutional: Denies chills and Denies fever(s) Cardiovascular: Cardiovascular: Denies chest pain, Denies dyspnea and Denies dyspnea on exertion Respiratory: Respiratory: Denies cough, Denies dyspnea and Denies dyspnea on exertion Gastrointestinal: Gastrointestinal: Denies hematochezia and Denies change in bowel habits Genitourinary: Genitourinary: Denies hematuria and Denies difficulty urinating Musculoskeletal: Musculoskeletal: Denies back pain and Denies limited range of motion Neurologic: Denies focal weakness and Denies convulsions Psychiatric: Psychiatric: Denies depression and Denies mood swings PMFSH Past Medical History Medical History Anemia Diabetes Foot abscess, left History of substance use Non-healing ulcer of right foot Osteomyelitis Family History Family History Mother Breast cancer CVD (cardiovascular disease) Diabetes Cancer Father Diabetes CVD (cardiovascular disease) Surgical History Surgical History History of appendectomy History of carpal tunnel surgery of left wrist History 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 Social History Social History Household Members: Friend(s) Housing: House Housing Other:: patient states his belongings are in his truck Do you presently have visiting nurse or other home services: No Unable to assess alcohol history related to: Unknown Alcohol intake: former Patient Tobacco Use Status: Current everyday Tobacco user Tobacco use type: Cigarette Cigarette Packs Per Day: 0.5 Cigarettes Per Day: 10 Years Smoked: 30 Second Hand Smoke Exposure: No Substance Use Type: Heroin and IV Drugs service: No Current occupational status: unemployed Meds Allergies Allergy/AdvReac Type Severity Reaction Status Date / Time No Known Allergies Allergy Verified 08/04/21 21:26 [No Known Allergies*] Active Medications: Current Medications Acetaminophen (Acetaminophen 325 Mg Tablet) 650 mg PO Q6H PRN PRN Reason: Pain, Mild (Pain Scale 1-3) Dextrose (Dextrose 50 % 25 Gm/50 Ml Syringe) 25 gm IVPUSH Q15M PRN; Protocol PRN Reason: per Hypoglycemia Standing Ord. Gabapentin (Gabapentin 600 Mg Tablet) 600 mg PO TID [facility] Last Admin: 08/17/21 07:52 Dose: 600 mg Documented by: Glucose (Glucose Gel 15 Gm Gel..Gram.) 15 gm PO Q15M PRN; Protocol PRN Reason: per Hypoglycemia Standing Ord. Heparin Sodium (Porcine) (Heparin Sodium,Porcine 5,000 Unit/Ml Vial) 5,000 unit SUBCUT Q8H [facility] Last Admin: 08/17/21 10:06 Dose: 5,000 unit Documented by: Vancomycin HCl 1,000 mg/ (Sodium Chloride) 270 mls @ 270 mls/hr IV Q12H [facility] Insulin Glargine (Insulin Glargine,Hum.Rec.Anlog 100 Unit/Ml 10 Ml Vial) 10 unit SUBCUT BID [facility] Last Admin: 08/17/21 07:52 Dose: 10 unit Documented by: Insulin Human Lispro (Insulin Lispro 100 Unit/Ml 3 Ml Vial) 0 unit SUBCUT QIDACHS [facility]; Protocol Last Admin: 08/17/21 07:52 Dose: 8 unit Documented by: Melatonin (Melatonin 3 Mg Tablet) 6 mg PO BEDTIME PRN PRN Reason: Insomnia Pharmacy Consult (Consult Rx Vancomycin Dosing) 1 each MISCELLANE DAILY PRN PRN Reason: Consult order Senna (Sennosides 8.6 Mg Tablet) 17.2 mg PO BEDTIME PRN PRN Reason: Constipation Sodium Chloride (0.9 % Sodium Chloride Flush 3 Ml Syringe) 3 ml IVFLUSH QSHIFT [facility] Last Admin: 08/17/21 07:56 Dose: 3 ml Documented by: Home Medications Medication Instructions Recorded Confirmed Last Taken Type ferrous sulfate 325 mg (65 mg 325 mg PO DAILY 05/06/20 08/17/21 08/04/21 08:00 History iron) tablet gabapentin 600 mg tablet 600 mg PO TID 05/06/20 08/17/21 08/04/21 14:00 History insulin lispro 100 unit/mL 1 sliding scale dose SUBCUT QID 05/06/20 08/17/21 08/04/21 13:00 History subcutaneous solution (Admelog U-100 Insulin lispro) metformin 500 mg tablet 1,000 mg PO BID 05/06/20 08/17/21 08/04/21 08:00 History insulin glargine 100 unit/mL (3 20 unit SUBCUT BID 08/04/21 08/17/21 08/04/21 08:00 History mL) subcutaneous pen (Lantus Solostar U-100 Insulin) pen needle, diabetic 31 gauge x 08/17/21 08/17/21 Unknown History 09/23 (BD Ultra-Fine Mini Pen Needle) Physical Exam Vital Signs: Vital Signs: Last Vital Signs Temp 98.2 F 08/17/21 04:05 Pulse 90 08/17/21 07:55 Resp 19 08/17/21 07:55 BP 137/76 08/17/21 07:55 Pulse Ox 98 08/17/21 07:55 BMI result Body Mass Index 25.1 Const: General: no acute distress Orientation/consciousness: patient oriented x3 Neck: Neck: Yes no lymphadenopathy Resp: Auscultation: clear to auscultation bilaterally Cardio: Rhythm: regular rhythm GI: Palpation (GI): Soft to palpation, nontender and no guarding Neuro: General: patient oriented x3 Extrem: Other: Transmetatarsal amputation, left foot, well healed, redness, no fluctuance, superficial ulcer on the plantar aspect this I, no drainage, does have some tenderness posteriorly on the ankle with no redness Results Labs Result diagrams: 08/25/21 06:04 08/25/21 06:04 Labs: Abnormal lab results 08/17/21 08/17/21 08/17/21 Range/Units 00:23 00:23 00:23 RBC 3.37 L (4.60-5.80) X10*6/uL Hgb 8.7 L (14.0-18.0) g/dl Hct 27.1 L (42.0-52.0) % MCH 25.8 L (27.0-33.0) pg Plt Count 421 H (160-400) X10*3/uL MPV (9.4-12.4) fL Neut % (Auto) 84.1 H (45-73) % Lymph % (Auto) 8.6 L (20-40) % Lymph # (Auto) 0.9 L (1.2-4.9) X10*3/uL Absolute Neuts (auto) 8.5 H (2.0-8.3) x10*3/uL PT 16.2 H (9.9-13.0) SEC INR 1.4 H (0.9-1.1) Sodium (135-145) mmol/L Potassium (3.3-5.1) mmol/L Chloride (96-108) mmol/L BUN (9-16) mg/dL POC Glucose (60-115) mg/dL Random Glucose (60-115) mg/dL Lactic Acid 3.1 H* (0.5-2.0) mmol/L Albumin (3.5-5.0) g/dL 08/17/21 08/17/21 08/17/21 Range/Units 00:42 03:11 03:11 RBC 2.96 L (4.60-5.80) X10*6/uL Hgb 7.7 L (14.0-18.0) g/dl Hct 23.8 L (42.0-52.0) % MCH 26.0 L (27.0-33.0) pg Plt Count (160-400) X10*3/uL MPV 9.1 L (9.4-12.4) fL Neut % (Auto) 81.2 H (45-73) % Lymph % (Auto) 11.5 L (20-40) % Lymph # (Auto) 1.0 L (1.2-4.9) X10*3/uL Absolute Neuts (auto) (2.0-8.3) x10*3/uL PT (9.9-13.0) SEC INR (0.9-1.1) Sodium 132 L 132 L (135-145) mmol/L Potassium 5.3 H (3.3-5.1) mmol/L Chloride 93 L (96-108) mmol/L BUN 21 H D 20 H (9-16) mg/dL POC Glucose (60-115) mg/dL Random Glucose 398 H* 375 H* (60-115) mg/dL Lactic Acid (0.5-2.0) mmol/L Albumin 3.0 L (3.5-5.0) g/dL 08/17/21 Range/Units 07:32 RBC (4.60-5.80) X10*6/uL Hgb (14.0-18.0) g/dl Hct (42.0-52.0) % MCH (27.0-33.0) pg Plt Count (160-400) X10*3/uL MPV (9.4-12.4) fL Neut % (Auto) (45-73) % Lymph % (Auto) (20-40) % Lymph # (Auto) (1.2-4.9) X10*3/uL Absolute Neuts (auto) (2.0-8.3) x10*3/uL PT (9.9-13.0) SEC INR (0.9-1.1) Sodium (135-145) mmol/L Potassium (3.3-5.1) mmol/L Chloride (96-108) mmol/L BUN (9-16) mg/dL POC Glucose 316 H (60-115) mg/dL Random Glucose (60-115) mg/dL Lactic Acid (0.5-2.0) mmol/L Albumin (3.5-5.0) g/dL Short CBC 08/17/21 08/17/21 Range/Units 00:23 03:11 WBC 10.1 8.6 (4.8-10.8) X10*3/uL Hgb 8.7 L 7.7 L (14.0-18.0) g/dl Hct 27.1 L 23.8 L (42.0-52.0) % Plt Count 421 H 325 (160-400) X10*3/uL BMP 08/17/21 08/17/21 00:42 03:11 Sodium 132 L 132 L Potassium 5.0 5.3 H Chloride 93 L 96 Carbon Dioxide 29 27 BUN 21 H D 20 H Creatinine 1.27 1.17 Calcium 9.2 8.4 D Liver Function 08/17/21 Range/Units 00:42 Total Bilirubin 0.5 (0.0-1.0) mg/dL AST 29 D (5-37) U/L ALT 13 (0-40) U/L Alkaline Phosphatase 100 (39-117) U/L Albumin 3.0 L (3.5-5.0) g/dL All other labs normal. Assessment and Plan (1) Osteomyelitis: Qualifiers: Laterality: left Osteomyelitis location: foot Osteomyelitis type: unspecified type Qualified Code(s): M86.9 - Osteomyelitis, unspecified Status: Acute He has osteomyelitis of multiple tarsal bones on the left foot where he has a previous transmetatarsal amputation. He also complains of pain on the left foot as well as on the posterior ankle distal leg. His previous MRI had suggested he may have arthritis at the tibiotalar area. He seems to be more receptive to BKA. I would recommend orthopedic consult as well because of the question of septic arthritis at the tibiotalar area. In the meantime, we can continue with IV antibiotics and pain medications. Since he has tenderness on the posterior calf distally, I would recommend workup to rule out DVT as well. Procedures Date of Service Date of Service: 08/25/21
--- NOTE | 2021-08-17 13:00 | P.CONOP_ITS ---
History of Present Illness HPI Consult date: 08/17/21 Chief complaint: Osteomyelitis Narrative: 36-year-old male who was admitted to the hospital left foot pain / osteomyelitis . He has a lisfranc amputation stump which was the result of osteomyelitis which failed abx treatment.? He had an MRI of the left ankle and there was note of some fluid as well on the tibiotalar area suggestive of septic arthritis. Orthopedics was called for consultation. 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 Social History Social History Household Members: None Housing: Apartment Housing Other:: patient states his belongings are in his truck Do you presently have visiting nurse or other home services: No Unable to assess alcohol history related to: Unknown Alcohol intake: former Patient Tobacco Use Status: Current everyday Tobacco user Tobacco use type: Cigarette Cigarette Packs Per Day: 0.5 Cigarettes Per Day: 10.0 Years Smoked: 30 Second Hand Smoke Exposure: No Use of substances other than those prescribed or required for medical reasons: No Advance Directives: No service: No Current occupational status: unemployed Meds Allergies Allergy/AdvReac Type Severity Reaction Status Date / Time No Known Allergies Allergy Verified 08/04/21 21:26 [No Known Allergies*] Active Medications: Current Medications Acetaminophen (Acetaminophen 325 Mg Tablet) 650 mg PO Q6H PRN PRN Reason: Pain, Mild (Pain Scale 1-3) Dextrose (Dextrose 50 % 25 Gm/50 Ml Syringe) 25 gm IVPUSH Q15M PRN; Protocol PRN Reason: per Hypoglycemia Standing Ord. Gabapentin (Gabapentin 600 Mg Tablet) 600 mg PO TID [facility] Last Admin: 08/17/21 07:52 Dose: 600 mg Documented by: Glucose (Glucose Gel 15 Gm Gel..Gram.) 15 gm PO Q15M PRN; Protocol PRN Reason: per Hypoglycemia Standing Ord. Heparin Sodium (Porcine) (Heparin Sodium,Porcine 5,000 Unit/Ml Vial) 5,000 unit SUBCUT Q8H [facility] Last Admin: 08/17/21 10:06 Dose: 5,000 unit Documented by: Vancomycin HCl 1,000 mg/ (Sodium Chloride) 270 mls @ 270 mls/hr IV Q12H [facility] Insulin Glargine (Insulin Glargine,Hum.Rec.Anlog 100 Unit/Ml 10 Ml Vial) 10 unit SUBCUT BID [facility] Last Admin: 08/17/21 07:52 Dose: 10 unit Documented by: Insulin Human Lispro (Insulin Lispro 100 Unit/Ml 3 Ml Vial) 0 unit SUBCUT QIDACHS [facility]; Protocol Last Admin: 08/17/21 07:52 Dose: 8 unit Documented by: Melatonin (Melatonin 3 Mg Tablet) 6 mg PO BEDTIME PRN PRN Reason: Insomnia Pharmacy Consult (Consult Rx Vancomycin Dosing) 1 each MISCELLANE DAILY PRN PRN Reason: Consult order Senna (Sennosides 8.6 Mg Tablet) 17.2 mg PO BEDTIME PRN PRN Reason: Constipation Sodium Chloride (0.9 % Sodium Chloride Flush 3 Ml Syringe) 3 ml IVFLUSH QSHIFT [facility] Last Admin: 08/17/21 07:56 Dose: 3 ml Documented by: Home Medications Medication Instructions Recorded Confirmed Last Taken Type ferrous sulfate 325 mg PO DAILY 05/06/20 08/17/21 08/04/21 08:00 History 325 mg (65 mg iron) tablet gabapentin 600 600 mg PO TID 05/06/20 08/17/21 08/04/21 14:00 History mg tablet insulin lispro 1 sliding scale 05/06/20 08/17/21 08/04/21 13:00 History 100 unit/mL dose SUBCUT QID subcutaneous solution (Admelog U-100 Insulin lispro) metformin 500 1,000 mg PO BID 05/06/20 08/17/21 08/04/21 08:00 History mg tablet insulin 20 unit SUBCUT 08/04/21 08/17/21 08/04/21 08:00 History glargine 100 BID unit/mL (3 mL) subcutaneous pen (Lantus Solostar U-100 Insulin) pen needle, 08/17/21 08/17/21 Unknown History diabetic 31 gauge x 3/16 (BD Ultra-Fine Mini Pen Needle) Physical Exam Verdana 4l Vital Signs: Verdana 4d Verdana 4d Vital Signs: Verdana 4d Verdana 4Bd Last Vital Signs Verdana 4d [employer] New 4d [employer] New 4d Temp 98.2 F 08/17/21 04:05 [employer] New 4d Pulse 90 08/17/21 07:55 [employer] New 4d Resp 19 08/17/21 07:55 BP 137/76 08/17/21 07:55 Pulse Ox 98 08/17/21 07:55 BMI result Body Mass Index 25.1 Const: General: cooperative, comfortable and no acute distress Extrem: Other: Left foot stump without any open wounds. There is no redness, swelling , warmth or tenderness over the ankle joint. He has some pain in the posterior aspect along the achilles which extends proximally. NVI. Results Labs Result Diagrams: 08/17/21 03:11 08/17/21 03:11 Labs: Abnormal lab results 08/17/21 08/17/21 08/17/21 Range/Units 00:23 00:23 00:23 RBC 3.37 L (4.60-5.80) X10*6/uL Hgb 8.7 L (14.0-18.0) g/dl Hct 27.1 L (42.0-52.0) % MCH 25.8 L (27.0-33.0) pg Plt Count 421 H (160-400) X10*3/uL MPV (9.4-12.4) fL Neut % (Auto) 84.1 H (45-73) % Lymph % (Auto) 8.6 L (20-40) % Lymph # (Auto) 0.9 L (1.2-4.9) X10*3/uL Absolute Neuts (auto) 8.5 H (2.0-8.3) x10*3/uL PT 16.2 H (9.9-13.0) SEC INR 1.4 H (0.9-1.1) Sodium (135-145) mmol/L Potassium (3.3-5.1) mmol/L Chloride (96-108) mmol/L BUN (9-16) mg/dL POC Glucose (60-115) mg/dL Random Glucose (60-115) mg/dL Lactic Acid 3.1 H* (0.5-2.0) mmol/L Albumin (3.5-5.0) g/dL 08/17/21 08/17/21 08/17/21 Range/Units 00:42 03:11 03:11 RBC 2.96 L (4.60-5.80) X10*6/uL Hgb 7.7 L (14.0-18.0) g/dl Hct 23.8 L (42.0-52.0) % MCH 26.0 L (27.0-33.0) pg Plt Count (160-400) X10*3/uL MPV 9.1 L (9.4-12.4) fL Neut % (Auto) 81.2 H (45-73) % Lymph % (Auto) 11.5 L (20-40) % Lymph # (Auto) 1.0 L (1.2-4.9) X10*3/uL Absolute Neuts (auto) (2.0-8.3) x10*3/uL PT (9.9-13.0) SEC INR (0.9-1.1) Sodium 132 L 132 L (135-145) mmol/L Potassium 5.3 H (3.3-5.1) mmol/L Chloride 93 L (96-108) mmol/L BUN 21 H D 20 H (9-16) mg/dL POC Glucose (60-115) mg/dL Random Glucose 398 H* 375 H* (60-115) mg/dL Lactic Acid (0.5-2.0) mmol/L Albumin 3.0 L (3.5-5.0) g/dL 08/17/21 Range/Units 07:32 RBC (4.60-5.80) X10*6/uL Hgb (14.0-18.0) g/dl Hct (42.0-52.0) % MCH (27.0-33.0) pg Plt Count (160-400) X10*3/uL MPV (9.4-12.4) fL Neut % (Auto) (45-73) % Lymph % (Auto) (20-40) % Lymph # (Auto) (1.2-4.9) X10*3/uL Absolute Neuts (auto) (2.0-8.3) x10*3/uL PT (9.9-13.0) SEC INR (0.9-1.1) Sodium (135-145) mmol/L Potassium (3.3-5.1) mmol/L Chloride (96-108) mmol/L BUN (9-16) mg/dL POC Glucose 316 H (60-115) mg/dL Random Glucose (60-115) mg/dL Lactic Acid (0.5-2.0) mmol/L Albumin (3.5-5.0) g/dL H & H 08/17/21 08/17/21 Range/Units 00:23 03:11 Hgb 8.7 L 7.7 L (14.0-18.0) g/dl Hct 27.1 L 23.8 L (42.0-52.0) % Coagulation 08/17/21 Range/Units 00:23 INR 1.4 H (0.9-1.1) All other labs normal. Assessment and Plan (1) Osteomyelitis: Qualifiers: Laterality: left Osteomyelitis location: foot Osteomyelitis type: unspecified type Qualified Code(s): M86.9 - Osteomyelitis, unspecified Status: Acute Plan I reviewed the case with Dr. Bowers and while the ankle clinically does not appear to be septic we would agree that on MRI there appears to be some fluid with erosion of the talar tibial joint. We are in agreement with General s urgery that a BKA would be the best option in this scenario as he already underwent a Lisfranc amputation and a Syme amputation often does not do well. I did relay this to Dr. Randall. Procedures Date of Service Date of Service: 08/17/21
[2021-08-17 13:11] LABS: Glucose, Whole Blood 243 mg/dL (60-115)
--- NOTE | 2021-08-17 14:09 | MHC.CM.PN ---
PT REPORTS HE LIVES WITH A ROOMMATE AND IS FULLY INDEPENDENT WITH CARE PT REPORTS HE USES A CANE AND HAS NO HOME SERVICES PT HAS A HCP ON FILE AND CONFIRMS HIS PCP IS YANA FISHER PT ASKED T/W TO CONTACT HIS PO, [place] ([phone]) TO CONFIRM HE WAS INPATIENT. CURRENT DC PLAN IS HOME VS HOME WITH PT PT REPORTS HE HAS TRANSPORTATION CM DID CALL PTS PO AND INFORM HIM OF PTS ADMISSION. HE WAS INFORMED PT WOULD LIKELY BE HERE FOR APPROXIMATELY TWO DAYS HOWEVER THE EXACT DC DATE WAS NOT YET KNOWN. HE ASKS THAT HE BE NOTIFIED WHEN PT IS DISCHARGED SO THAT HE CAN FOLLOW UP.
--- NOTE | 2021-08-17 14:24 | PC.NURSE ---
Pt received from main ER: Pt AOx4 and denies any current complaints. Pt noted to be very pale. Heart sounds normal and lung clear. L toes noted amputation with L foot non-healing DM ulcer and osteomylitis. Pt receiving IV ABT.
--- NOTE | 2021-08-17 16:06 | W.PM.IDCN ---
History of Present Illness Data of Consult Service Date: 08/17/21 Requesting physician: Suresh Rahman Primary Care Provider: Jose Manuel Alicea MD HPI Reason for consult: left foot/calf discomfort I saw him last week for left foot discomfort/oozing yellow fluid He has chronic osteomyelitis of left foot He signed out AMA. He has inoperable foot disease apparently Review of Systems Review of Systems: Yes all other systems are reviewed and are negative PMFSH Past Medical History Medical History Anemia Diabetes Diabetic infection of left foot Foot abscess, left Foot osteomyelitis, left History of substance use Hypergranulation Non-healing ulcer Non-healing ulcer of right foot Osteomyelitis Osteomyelitis Wound dehiscence Family History Family History Mother Breast cancer CVD (cardiovascular disease) Diabetes Cancer Father Diabetes CVD (cardiovascular disease) Family history: reviewed and not pertinent Surgical History Surgical History History of appendectomy History of carpal tunnel surgery of left wrist History 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 Social History Social History Household Members: Friend(s) Housing: House Housing Other:: patient states his belongings are in his truck Do you presently have visiting nurse or other home services: No Unable to assess alcohol history related to: Unknown Alcohol intake: former Patient Tobacco Use Status: Current everyday Tobacco user Tobacco use type: Cigarette Cigarette Packs Per Day: 0.5 Cigarettes Per Day: 10 Years Smoked: 30 Second Hand Smoke Exposure: No Substance Use Type: Heroin and IV Drugs Advance Directives Date on File: 08/05/21 service: No Current occupational status: unemployed Meds Allergies Allergy/AdvReac Type Severity Reaction Status Date / Time No Known Allergies Allergy Verified 11/26/21 14:54 [No Known Allergies*] Active Medications: Current Medications Acetaminophen (Acetaminophen 325 Mg Tablet) 650 mg PO Q6H PRN PRN Reason: Pain, Mild (Pain Scale 1-3) Dextrose (Dextrose 50 % 25 Gm/50 Ml Syringe) 25 gm IVPUSH Q15M PRN; Protocol PRN Reason: per Hypoglycemia Standing Ord. Gabapentin (Gabapentin 600 Mg Tablet) 600 mg PO TID [facility] Last Admin: 08/17/21 14:24 Dose: 600 mg Documented by: Glucose (Glucose Gel 15 Gm Gel..Gram.) 15 gm PO Q15M PRN; Protocol PRN Reason: per Hypoglycemia Standing Ord. Heparin Sodium (Porcine) (Heparin Sodium,Porcine 5,000 Unit/Ml Vial) 5,000 unit SUBCUT Q8H [facility] Last Admin: 08/17/21 10:06 Dose: 5,000 unit Documented by: Vancomycin HCl 1,000 mg/ (Sodium Chloride) 270 mls @ 270 mls/hr IV Q12H [facility] Last Infusion: 08/17/21 15:25 Dose: Infused Documented by: Insulin Glargine (Insulin Glargine,Hum.Rec.Anlog 100 Unit/Ml 10 Ml Vial) 10 unit SUBCUT BID [facility] Last Admin: 08/17/21 07:52 Dose: 10 unit Documented by: Insulin Human Lispro (Insulin Lispro 100 Unit/Ml 3 Ml Vial) 0 unit SUBCUT QIDACHS [facility]; Protocol Last Admin: 08/17/21 14:23 Dose: 4 unit Documented by: Melatonin (Melatonin 3 Mg Tablet) 6 mg PO BEDTIME PRN PRN Reason: Insomnia Pharmacy Consult (Consult Rx Vancomycin Dosing) 1 each MISCELLANE DAILY PRN PRN Reason: Consult order Senna (Sennosides 8.6 Mg Tablet) 17.2 mg PO BEDTIME PRN PRN Reason: Constipation Sodium Chloride (0.9 % Sodium Chloride Flush 3 Ml Syringe) 3 ml IVFLUSH QSHIFT [facility] Last Admin: 08/17/21 14:24 Dose: Not Given Documented by: Home Medications Medication Instructions Recorded Confirmed Last Taken Type ferrous sulfate 325 mg (65 mg 325 mg PO DAILY 05/06/20 11/26/21 08/04/21 08:00 History iron) tablet gabapentin 600 mg tablet 600 mg PO TID 05/06/20 11/26/21 08/04/21 14:00 History insulin lispro 100 unit/mL 1 sliding scale dose SUBCUT QID 05/06/20 11/26/21 08/04/21 13:00 History subcutaneous solution (Admelog U-100 Insulin lispro) metformin 500 mg tablet 1,000 mg PO BID 05/06/20 11/26/21 08/04/21 08:00 History insulin glargine 100 unit/mL (3 20 unit SUBCUT BID 08/04/21 11/26/21 08/04/21 08:00 History mL) subcutaneous pen (Lantus Solostar U-100 Insulin) pen needle, diabetic 31 gauge x 08/17/21 11/26/21 Unknown History 09/23 (BD Ultra-Fine Mini Pen Needle) Physical Exam Vital Signs: Vital Signs: Last Vital Signs Temp 98.2 F 08/17/21 04:05 Pulse 90 08/17/21 07:55 Resp 19 08/17/21 07:55 BP 137/76 08/17/21 07:55 Pulse Ox 98 08/17/21 07:55 BMI result Body Mass Index 25.1 HENMT: Head: Yes normal to inspection Mouth: Normal oral and palatal mucosa present Resp: Effort & Inspection: normal respiratory effort Cardio: Rate: regular rate Rhythm: regular rhythm GI: Palpation (GI): Soft to palpation and nontender Extrem: Other: chronic foot wound under first MTP stump only trace erythema Results Labs CBC & Chem 7: 08/25/21 06:04 08/26/21 05:55 Labs: Short CBC 08/17/21 08/17/21 Range/Units 00:23 03:11 WBC 10.1 8.6 (4.8-10.8) X10*3/uL Hgb 8.7 L 7.7 L (14.0-18.0) g/dl Hct 27.1 L 23.8 L (42.0-52.0) % Plt Count 421 H 325 (160-400) X10*3/uL BMP 08/17/21 08/17/21 00:42 03:11 Sodium 132 L 132 L Potassium 5.0 5.3 H Chloride 93 L 96 Carbon Dioxide 29 27 BUN 21 H D 20 H Creatinine 1.27 1.17 Calcium 9.2 8.4 D Liver Function 08/17/21 Range/Units 00:42 Total Bilirubin 0.5 (0.0-1.0) mg/dL AST 29 D (5-37) U/L ALT 13 (0-40) U/L Alkaline Phosphatase 100 (39-117) U/L Albumin 3.0 L (3.5-5.0) g/dL Assessment and Plan (1) Non-healing ulcer: He is not a candidate for buttermaker continuous churn IV antibiotics He leaves AMA last time (2) Osteomyelitis: Qualifiers: Laterality: left Osteomyelitis location: foot Osteomyelitis type: unspecified type Qualified Code(s): M86.9 - Osteomyelitis, unspecified Plan Vancomycin and Zosyn for now Surgery evaluation and if not improved ,further surgery Po Linezolid as outpatient four weeks if can take
[2021-08-17 16:15] VITALS: BP 136/69; PULSE 71; RESP 16; TEMP 36.7; O2SAT 99
[2021-08-17 16:21] LABS: Glucose, Whole Blood 336 mg/dL (60-115)
[2021-08-17 20:38] LABS: Glucose, Whole Blood 223 mg/dL (60-115)
[2021-08-18] MEDS: 0.9 % Sodium Chloride Flush 3 ML SYRINGE IVFLUSH (01:00)
[2021-08-18] MEDS: Heparin Sodium,Porcine 5,000 UNIT/ML VIAL 5000 UNIT SUBCUT ×3 (02:55→21:29)
[2021-08-18] MEDS: vancomycin HCL 1,000 MG in 0.9 % Sodium Chloride 250 ML 270 MG IV (02:56)
--- NOTE | 2021-08-18 07:10 | PC.NURSE ---
This Rn took over patient's care at 2300. Patient alert and oriented x3. Denies any pain or discomfort at this time, l/s clear, abd soft, left foot elevated on pillow. Watching show on laptop, offers no complaints, call taylor within reach.
--- NOTE | 2021-08-18 07:43 | PC.NURSE ---
Pt received from shift supervisor: Pt AOX4 and offers mild complaints of pain to L foot. L toes amupution noted with osteomylitis. Heart sounds normal and lungs clear.
[2021-08-18 08:15] LABS: Glucose, Whole Blood 331 mg/dL (60-115)
[2021-08-18 08:49] VITALS: BP 150/76; PULSE 81; RESP 18; TEMP 36.7; O2SAT 96
[2021-08-18] MEDS: Insulin Glargine,Hum.rec.anlog 100 UNIT/ML 10 ML VIAL 14 UNIT SUBCUT ×2 (08:56→21:30)
[2021-08-18] MEDS: Gabapentin 600 MG TABLET PO ×3 (08:56→21:29)
[2021-08-18] MEDS: Insulin Lispro 100 UNIT/ML 3 ML VIAL SUBCUT ×4 (08:56→21:30)
--- NOTE | 2021-08-18 10:34 | P.CDIC_ITS ---
CDI Concurrent Query Documentation Clarification: PHYSICIAN'S DOCUMENTATION REQUEST Date of Query: 08/18/21 1034 Patient Name: Paulo Umana Admit Date: 08/17/21 Dear Doctor, A review of the medical record indicates additional documentation may be needed. Please review below and update the documentation accordingly. Clinical Indicators: Risk Factors/Clinical Indicators/Treatments Diabetic infection of left foot/osteomyelitis. Glucose 316 H 336 H Lantus 10 units and insulin sliding scale. Monitor fingerstick glucose. Please clarify the following regarding Diabetes Mellitus (DM): * Uncontrolled * Poorly controlled * Hyperglycemia * Other * Unable to determine Use of terms such as suspected, likely, concern for, or probable (associated with a specific diagnosis that is being evaluated, monitored, or treated as if it exists) are acceptable and can be coded in the inpatient setting, when documented at the time of discharge. Thank you, Brisa Nova [facility], CDIS Extension: [id number] Please use your independent medical judgment in providing your response. THIS QUERY IS PART OF THE PERMANENT MEDICAL RECORD Provider Response: Other Other Diagnosis: diabetes mellitus with uncontrolled blood sugars
[2021-08-18 13:01] LABS: Creatinine Clr Calc Pharmacy 102.5; Estimated Glomerular Filt Rate > 60
[2021-08-18 13:04] LABS: Glucose, Whole Blood 356 mg/dL (60-115)
--- NOTE | 2021-08-18 13:14 | P.PNIM_ITS ---
Subjective Subjective Date of Service: 08/19/21 Interval History: no acute complaints, no fevers no chills, no nausea, no vomiting, tolerating diet, no acute issues overnight. Review of Systems Review of Systems: Yes all other systems are reviewed and are negative Physical Exam Vital Signs: Vital Signs: Last Vital Signs Temp 98.0 F 08/18/21 08:49 Pulse 81 08/18/21 08:49 Resp 18 08/18/21 08:49 BP 150/76 H 08/18/21 08:49 Pulse Ox 96 08/18/21 08:49 BMI result Body Mass Index 25.1 Const: Other: General awake alert , no acute distress. Neck no JVD. CVS regular rate rhythm, Respiratory lungs clear to auscultation, no respiratory distress, no wheeze, no rhonchi. Gastrointestinal abdomen soft, nontender, bowel sounds audible. Extremities no edema. left foot stump without open wounds, no swelling, no tenderness, no redness over ankle joint, callus plantar surface with mild surrounding erythema. Neuro nonfocal Skin pallor psych appropriate affect Objective Data Active Medications Acetaminophen (Acetaminophen 325 Mg Tablet) 650 mg PO Q6H PRN PRN Reason: Pain, Mild (Pain Scale 1-3) Dextrose (Dextrose 50 % 25 Gm/50 Ml Syringe) 25 gm IVPUSH Q15M PRN; Protocol PRN Reason: per Hypoglycemia Standing Ord. Gabapentin (Gabapentin 600 Mg Tablet) 600 mg PO TID [facility] Last Admin: 08/18/21 08:56 Dose: 600 mg Documented by: GRACIE-MALIR Glucose (Glucose Gel 15 Gm Gel..Gram.) 15 gm PO Q15M PRN; Protocol PRN Reason: per Hypoglycemia Standing Ord. Heparin Sodium (Porcine) (Heparin Sodium,Porcine 5,000 Unit/Ml Vial) 5,000 unit SUBCUT Q8H [facility] Last Admin: 08/18/21 02:55 Dose: 5,000 unit Documented by: LANE Vancomycin HCl 1,000 mg/ (Sodium Chloride) 270 mls @ 270 mls/hr IV Q12H [facility] Last Infusion: 08/18/21 04:00 Dose: 0 mls/hr Documented by: LANE Insulin Glargine (Insulin Glargine,Hum.Rec.Anlog 100 Unit/Ml 10 Ml Vial) 14 unit SUBCUT BID [facility] Last Admin: 08/18/21 08:56 Dose: 14 unit Documented by: ANGELO Insulin Human Lispro (Insulin Lispro 100 Unit/Ml 3 Ml Vial) 0 unit SUBCUT QIDAAngie [facility]; Protocol Last Admin: 08/18/21 08:56 Dose: 8 unit Documented by: ANGELO Comments: B/S 331 Melatonin (Melatonin 3 Mg Tablet) 6 mg PO BEDTIME PRN PRN Reason: Insomnia Pharmacy Consult (Consult Rx Vancomycin Dosing) 1 each MISCELLANE DAILY PRN PRN Reason: Consult order Senna (Sennosides 8.6 Mg Tablet) 17.2 mg PO BEDTIME PRN PRN Reason: Constipation Sodium Chloride (0.9 % Sodium Chloride Flush 3 Ml Syringe) 3 ml IVFLUSH [facility] Last Admin: 08/18/21 07:24 Dose: Not Given Documented by: ANGELO Non-Admin Reason: Med Not Available Labs CBC & Chem 7: 08/19/21 06:58 08/19/21 06:58 Labs: Laboratory Results - last 24 hr 08/17/21 08/17/21 08/18/21 16:17 20:34 07:55 Estim Creat Clear Calc Estimated GFR POC Glucose 336 H 223 H 331 H 08/18/21 08/18/21 12:09 13:01 Estim Creat Clear Calc 102.5 Estimated GFR > 60 POC Glucose 356 H* Microbiology Microbiology Results: Microbiology 08/17/21 00:25 Blood Culture - Preliminary Blood - Venous No growth after 24 hours. 08/17/21 00:25 Blood Culture - Preliminary Blood - Venous No growth after 24 hours. Assessment and Plan (1) Osteomyelitis: Status: Acute (2) Diabetes: Status: Acute Plan 36-year-old male with a past medical history of diabetes, diabetic neuropathy, history of diabetic foot infection/osteomyelitis status post left foot ta rsometatarsal amputation, history of foot ulcer on the stump; substance abuse, anemia , recent admission to the hospital for left foot osteomyelitis/MRSA bacteremia, [facility] on 08/04/2021 interrupting the treatment presented to the hospital today with a chief complaint of increased left foot pain. Left diabetic foot ulcer/osteomyelitis stable pain left leg, no fevers no chills no leukocytosis Recent MRI showed osteomyelitis of the foot bones.? duplex study left lower extremity showed no DVT Continue IV vancomycin and Zosyn day 1, case discussed with ID she recommend to continue current antibiotics and follow blood cultures if no plan for surgery she recommends by mouth antibiotic as outpatient since history of prior AMA. blood cultures x2 no growth dc echocardiogram. anemia of chronic disease , low hematocrit, patient asymptomatic, no chest pain, no palpitation, no lightheadedness or dizziness, will plan to transfuse prior to proceeding,Monitor CBC.? Diabetes mellitus uncontrolled blood sugars, blood sugars in 200s will increase dose of Lantus, continue insulin sliding scale, diabetic diet,monitor fingerstick glucose and adjust as needed. hemoglobin A1c 9.2 on 09/03/20? strongly recommend compliance with home medications History of neuropathy: Continue home gabapentin DVT prophylaxis: [facility] Code status: Full code Quality Stroke Does the patient have a stroke diagnosis?: No VTE Prior VTE?: No VTE Risk Level:: Medical - moderate - high VTE Device Contraindication: Treatment Not Indicated VTE Drug Contraindication: N/A - Med Ordered
[2021-08-18 13:33] LABS: Vancomycin Trough 10.1 mcg/mL (10.0-20.0)
[2021-08-18] MEDS: vancomycin HCL 1,250 MG in 0.9 % Sodium Chloride 250 ML 166.67 MG IV (15:48)
--- NOTE | 2021-08-18 16:21 | P.PNGS_ITS ---
Subjective Subjective Date of Service: 08/19/21 Interval history: Says he still has some pain on the left foot and posterior ankle No events reported Looks comfortable Physical Exam Vital Signs: Vital Signs: Last Vital Signs Temp 98.0 F 08/18/21 08:49 Pulse 81 08/18/21 08:49 Resp 18 08/18/21 08:49 BP 150/76 H 08/18/21 08:49 Pulse Ox 96 08/18/21 08:49 BMI result Body Mass Index 25.1 Const: General: comfortable and no acute distress Resp: Effort & Inspection: normal respiratory effort Cardio: Rate: regular rate GI: Palpation (GI): Soft to palpation Extrem: Other: Left foot transmetatarsal amputation site dry, draining sinuses, no cellulitis, no fluctuance, tender on the posterior ankle Objective Data Active Medications Acetaminophen (Acetaminophen 325 Mg Tablet) 650 mg PO Q6H PRN PRN Reason: Pain, Mild (Pain Scale 1-3) Dextrose (Dextrose 50 % 25 Gm/50 Ml Syringe) 25 gm IVPUSH Q15M PRN; Protocol PRN Reason: per Hypoglycemia Standing Ord. Gabapentin (Gabapentin 600 Mg Tablet) 600 mg PO TID [facility] Last Admin: 08/18/21 15:48 Dose: 600 mg Documented by: ANGELO Glucose (Glucose Gel 15 Gm Gel..Gram.) 15 gm PO Q15M PRN; Protocol PRN Reason: per Hypoglycemia Standing Ord. Heparin Sodium (Porcine) (Heparin Sodium,Porcine 5,000 Unit/Ml Vial) 5,000 unit SUBCUT Q8H [facility] Last Admin: 08/18/21 15:47 Dose: 5,000 unit Documented by: ANGELO Vancomycin HCl 1,250 mg/ (Sodium Chloride) 250 mls @ 166.667 mls/hr IV Q12H [facility] Last Admin: 08/18/21 15:48 Dose: 166.67 mls/hr Documented by: ANGELO Insulin Glargine (Insulin Glargine,Hum.Rec.Anlog 100 Unit/Ml 10 Ml Vial) 14 unit SUBCUT BID [facility] Last Admin: 08/18/21 08:56 Dose: 14 unit Documented by: ANGELO Insulin Human Lispro (Insulin Lispro 100 Unit/Ml 3 Ml Vial) 0 unit SUBCUT QIDACHS [facility]; Protocol Last Admin: 08/18/21 13:13 Dose: 10 unit Documented by: ROSE Melatonin (Melatonin 3 Mg Tablet) 6 mg PO BEDTIME PRN PRN Reason: Insomnia Pharmacy Consult (Consult Rx Vancomycin Dosing) 1 each MISCELLANE DAILY PRN PRN Reason: Consult order Senna (Sennosides 8.6 Mg Tablet) 17.2 mg PO BEDTIME PRN PRN Reason: Constipation Sodium Chloride (0.9 % Sodium Chloride Flush 3 Ml Syringe) 3 ml IVFLUSH QSHIFT [facility] Last Admin: 08/18/21 15:48 Dose: Not Given Documented by: ANGELO Non-Admin Reason: Med Not Available Labs CBC & Chem 7: 08/19/21 06:58 08/19/21 06:58 Labs: Laboratory Results - last 24 hr 08/17/21 08/17/21 08/18/21 16:17 20:34 07:55 Estim Creat Clear Calc Estimated GFR POC Glucose 336 H 223 H 331 H Vancomycin Trough 08/18/21 08/18/21 08/18/21 12:09 12:09 13:01 Estim Creat Clear Calc 102.5 Estimated GFR > 60 POC Glucose 356 H* Vancomycin Trough 10.1 Microbiology Microbiology Results: Microbiology 08/17/21 00:25 Blood Culture - Preliminary Blood - Venous No growth after 24 hours. 08/17/21 00:25 Blood Culture - Preliminary Blood - Venous No growth after 24 hours. Procedures Date of Service Date of Service: 08/18/21 Progress Note: A&P Assessment and plan (1) Osteomyelitis: Status: Acute Assessment and Plan: Has osteomyelitis of the tarsal bones on the left No fluctuance, no evidence of any abscess He does have chronic pain Continue IV antibiotics He does state that he is willing to undergo BKA down the line if he does not improve Treat anemia - likely from chronic disease Appears comfortable, not septic looking Fall Risk Details Current Medications: Current Medications Acetaminophen (Acetaminophen 325 Mg Tablet) 650 mg PO Q6H PRN PRN Reason: Pain, Mild (Pain Scale 1-3) Dextrose (Dextrose 50 % 25 Gm/50 Ml Syringe) 25 gm IVPUSH Q15M PRN; Protocol PRN Reason: per Hypoglycemia Standing Ord. Gabapentin (Gabapentin 600 Mg Tablet) 600 mg PO TID [facility] Last Admin: 08/18/21 15:48 Dose: 600 mg Documented by: Glucose (Glucose Gel 15 Gm Gel..Gram.) 15 gm PO Q15M PRN; Protocol PRN Reason: per Hypoglycemia Standing Ord. Heparin Sodium (Porcine) (Heparin Sodium,Porcine 5,000 Unit/Ml Vial) 5,000 unit SUBCUT Q8H [facility] Last Admin: 08/18/21 15:47 Dose: 5,000 unit Documented by: Vancomycin HCl 1,250 mg/ (Sodium Chloride) 250 mls @ 166.667 mls/hr IV Q12H [facility] Last Admin: 08/18/21 15:48 Dose: 166.67 mls/hr Documented by: Insulin Glargine (Insulin Glargine,Hum.Rec.Anlog 100 Unit/Ml 10 Ml Vial) 14 unit SUBCUT BID [facility] Last Admin: 08/18/21 08:56 Dose: 14 unit Documented by: Insulin Human Lispro (Insulin Lispro 100 Unit/Ml 3 Ml Vial) 0 unit SUBCUT QIDACHS [facility]; Protocol Last Admin: 08/18/21 13:13 Dose: 10 unit Documented by: Melatonin (Melatonin 3 Mg Tablet) 6 mg PO BEDTIME PRN PRN Reason: Insomnia Pharmacy Consult (Consult Rx Vancomycin Dosing) 1 each MISCELLANE DAILY PRN PRN Reason: Consult order Senna (Sennosides 8.6 Mg Tablet) 17.2 mg PO BEDTIME PRN PRN Reason: Constipation Sodium Chloride (0.9 % Sodium Chloride Flush 3 Ml Syringe) 3 ml IVFLUSH QSHIFT [facility] Last Admin: 08/18/21 15:48 Dose: Not Given Documented by: Time Spent With Patient Time: Total time spent is greater than 50% in coordination of care (as documented) at patient's floor/unit and/or counseling patient: Time with patient: 15 - 24 minutes Quality Stroke Does the patient have a stroke diagnosis?: No VTE Prior VTE?: No VTE Risk Level:: Medical - moderate - high VTE Device Contraindication: Treatment Not Indicated VTE Drug Contraindication: N/A - Med Ordered
[2021-08-18 16:46] VITALS: BP 123/58; PULSE 67; RESP 16; TEMP 36.7; O2SAT 95
[2021-08-18 18:04] LABS: Glucose, Whole Blood 233 mg/dL (60-115)
--- NOTE | 2021-08-18 18:33 | PC.NURSE ---
Pt has visitor stop by for approx 1 minute. Due to pt's past medical history, concerned for his welfare at this time. Pt directly questioned to which pt denied holding any illegal substances. Pt states his significant other picked up EBT card to get snacks. Pt's curtain opened at this time for better visual observation. Security and [employer] Director Julia made aware.
--- NOTE | 2021-08-18 19:30 | PC.NURSE ---
Assumed care of pt Pt resting on stretcher watching movies on computer Curtains open and pt visible to this nurse and porcelain technician Will continue to monitor
[2021-08-18 20:55] VITALS: BP 145/75; PULSE 68; RESP 14; TEMP 36.6; O2SAT 95
[2021-08-18 21:13] LABS: Glucose, Whole Blood 296 mg/dL (60-115)
[2021-08-19] MEDS: vancomycin HCL 1,250 MG in 0.9 % Sodium Chloride 250 ML 166.67 MG IV ×2 (01:34→14:24)
[2021-08-19] MEDS: Heparin Sodium,Porcine 5,000 UNIT/ML VIAL 5000 UNIT SUBCUT ×3 (04:24→21:52)
[2021-08-19 04:29] VITALS: BP 144/76; PULSE 75; RESP 20; O2SAT 96
[2021-08-19 07:22] LABS: Hematocrit 26.7 % (42.0-52.0); Hemoglobin 8.7 g/dl (14.0-18.0)
[2021-08-19 07:34] LABS: Anion Gap 13 (12-20); Blood Urea Nitrogen 14 mg/dL (9-16); Carbon Dioxide 32 mmol/L (22-29); Chloride 96 mmol/L (96-108); Creatinine Clr Calc Pharmacy 112.2; Estimated Glomerular Filt Rate > 60; Glucose Random 185 mg/dL (60-115); Potassium 5.4 mmol/L (3.3-5.1); Sodium 136 mmol/L (135-145)
[2021-08-19 07:40] LABS: Calcium 9.4 mg/dL (8.4-10.2)
[2021-08-19 07:53] LABS: Glucose, Whole Blood 184 mg/dL (60-115)
--- NOTE | 2021-08-19 09:08 | PC.NURSE ---
Pt received from overnight caregiver: Pt AOX4 and offers no complaints. Heart sounds normal and lung clear. Pt abd soft and non-tender. L foot noted toes amputation. As per MD Bates, pt pending BKA sometime this week.
[2021-08-19] MEDS: Gabapentin 600 MG TABLET PO ×3 (09:12→21:52)
[2021-08-19] MEDS: Insulin Lispro 100 UNIT/ML 3 ML VIAL SUBCUT ×4 (09:12→21:52)
[2021-08-19] MEDS: Insulin Glargine,Hum.rec.anlog 100 UNIT/ML 10 ML VIAL 14 UNIT SUBCUT (09:12)
[2021-08-19 09:20] VITALS: BP 117/63; PULSE 75; RESP 16; TEMP 37; O2SAT 95
[2021-08-19 12:29] VITALS: BP 112/55; PULSE 69; RESP 15; TEMP 36.8; O2SAT 97
--- NOTE | 2021-08-19 13:19 | HO.PM.IMPN ---
Subjective Subjective Date of Service: 08/19/21 Interval History: Sitting comfortably offers no acute complaints, denies overnight fever chills, tolerating diet, no nausea, no vomiting. Review of Systems Review of Systems: Yes all other systems are reviewed and are negative Physical Exam Vital Signs: Vital Signs: Last Vital Signs Temp 98.3 F 08/19/21 12:29 Pulse 69 08/19/21 12:29 Resp 15 08/19/21 12:29 BP 112/55 L 08/19/21 12:29 Pulse Ox 97 08/19/21 12:29 BMI result Body Mass Index 25.1 Const: Other: General awake alert , no acute distress.? Neck no JVD. CVS? regular rate rhythm, Respiratory lungs clear to auscultation, no respiratory distress, no wheeze, no rhonchi. Gastrointestinal abdomen soft, nontender, bowel sounds audible. Extremities no edema, left foot stump without open wounds, no swelling, no tenderness, no redness over ankle joint, noted to have pus draining from center of callus, plantar surface,with surrounding erythema. Neuro nonfocal Skin pallor psych appropriate affect Objective Data Active Medications Acetaminophen (Acetaminophen 325 Mg Tablet) 650 mg PO Q6H PRN PRN Reason: Pain, Mild (Pain Scale 1-3) Dextrose (Dextrose 50 % 25 Gm/50 Ml Syringe) 25 gm IVPUSH Q15M PRN; Protocol PRN Reason: per Hypoglycemia Standing Ord. Gabapentin (Gabapentin 600 Mg Tablet) 600 mg PO TID [facility] Last Admin: 08/19/21 09:12 Dose: 600 mg Documented by: ANGELO Glucose (Glucose Gel 15 Gm Gel..Gram.) 15 gm PO Q15M PRN; Protocol PRN Reason: per Hypoglycemia Standing Ord. Heparin Sodium (Porcine) (Heparin Sodium,Porcine 5,000 Unit/Ml Vial) 5,000 unit SUBCUT Q8H [facility] Last Admin: 08/19/21 04:24 Dose: 5,000 unit Documented by: DAVID Vancomycin HCl 1,250 mg/ (Sodium Chloride) 250 mls @ 166.667 mls/hr IV Q12H [facility] Last Infusion: 08/19/21 03:15 Dose: 0 mls/hr Documented by: DAVID Insulin Glargine (Insulin Glargine,Hum.Rec.Anlog 100 Unit/Ml 10 Ml Vial) 14 unit SUBCUT BID [facility] Last Admin: 08/19/21 09:12 Dose: 14 unit Documented by: ANGELO Insulin Human Lispro (Insulin Lispro 100 Unit/Ml 3 Ml Vial) 0 unit SUBCUT QIDACHS [facility]PL[facility]; Protocol Last Admin: 08/19/21 09:12 Dose: 2 unit Documented by: ANGELO Comments: B/S 184 Melatonin (Melatonin 3 Mg Tablet) 6 mg PO BEDTIME PRN PRN Reason: Insomnia Pharmacy Consult (Consult Rx Vancomycin Dosing) 1 each MISCELLANE DAILY PRN PRN Reason: Consult order Senna (Sennosides 8.6 Mg Tablet) 17.2 mg PO BEDTIME PRN PRN Reason: Constipation Sodium Chloride (0.9 % Sodium Chloride Flush 3 Ml Syringe) 3 ml IVFLUSH QSHIFT [facility]PL[facility] Last Admin: 08/19/21 07:52 Dose: Not Given Documented by: ANGELO Non-Admin Reason: Med Not Available Labs CBC & Chem 7: 08/19/21 06:58 08/19/21 06:58 Labs: Laboratory Results - last 24 hr 08/18/21 08/18/21 08/18/21 12:09 17:46 21:09 Anion Gap Estim Creat Clear Calc Estimated GFR POC Glucose 233 H 296 H Random Glucose Calcium Vancomycin Trough 10.1 08/19/21 08/19/21 06:58 07:50 Anion Gap 13 Estim Creat Clear Calc 112.2 Estimated GFR > 60 POC Glucose 184 H Random Glucose 185 H D Calcium 9.4 D Vancomycin Trough Microbiology Microbiology Results: Microbiology 08/17/21 00:25 Blood Culture - Preliminary Blood - Venous No growth after 48 hours. 08/17/21 00:25 Blood Culture - Preliminary Blood - Venous No growth after 48 hours. Assessment and Plan (1) Osteomyelitis: Status: Acute (2) Diabetes: Status: Acute Plan 36-year-old male with a past medical history of diabetes, diabetic neuropathy, history of diabetic foot infection/osteomyelitis status post left foot tarsometatarsal amputation, history of foot ulcer on the stump; substance abuse, anemia , recent admission to the hospital for left foot osteomyelitis/MRSA bacteremia, [facility] on 08/04/2021 interrupting the treatment presented to the hospital today with a chief complaint of increased left foot pain. Left diabetic foot ulcer/osteomyelitis no pain left leg, no fevers, no chills, no leukocytosis, but noted to have redness mid plantar callus with small amount of pus. Recent MRI showed osteomyelitis of the foot bones.? duplex study left lower extremity showed no DVT on IV vancomycin and Zosyn day 2, case discussed with ID she recommend to continue current antibiotics and follow blood cultures if no plan for surgery she recommends by mouth antibiotic as outpatient since history of prior AMA. blood cultures x2 no growth will discuss with General surgery regarding BKA anemia of chronic disease , patient asymptomatic, no chest pain, no palpitation, no lightheadedness or dizziness, hematocrit improved to 26.7, hemoglobin 8.7. follow CBC Diabetes mellitus uncontrolled blood sugars, blood sugars improved cont. Lantus, insulin sliding scale, diabetic diet,monitor fingerstick glucose, and adjust as needed. hemoglobin A1c 9.2 on 09/03/20? strongly recommend compliance with home medications. History of neuropathy: Continue home gabapentin DVT prophylaxis: [facility] Code status: Full code Quality Stroke Does the patient have a stroke diagnosis?: No VTE Prior VTE?: No VTE Risk Level:: Medical - moderate - high VTE Device Contraindication: Treatment Not Indicated VTE Drug Contraindication: N/A - Med Ordered
[2021-08-19 13:30] LABS: Glucose, Whole Blood 155 mg/dL (60-115)
[2021-08-19 14:49] LABS: Delay - Chemistry DELAY
--- NOTE | 2021-08-19 16:23 | PM.PNGS ---
Subjective Subjective Date of Service: 08/19/21 Interval history: No new complaints Has some grade pain on his left foot Otherwise looks well No fever No events reported Physical Exam Vital Signs: Vital Signs: Last Vital Signs Temp 98.3 F 08/19/21 12:29 Pulse 69 08/19/21 12:29 Resp 15 08/19/21 12:29 BP 112/55 L 08/19/21 12:29 Pulse Ox 97 08/19/21 12:29 BMI result Body Mass Index 25.1 Const: General: comfortable and no acute distress Resp: Effort & Inspection: normal respiratory effort Cardio: Rate: regular rate GI: Palpation (GI): Soft to palpation and nontender Extrem: Other: Left foot - no cellulitis, superficial plantar ulcer, dry, no induration Objective Data Active Medications Acetaminophen (Acetaminophen 325 Mg Tablet) 650 mg PO Q6H PRN PRN Reason: Pain, Mild (Pain Scale 1-3) Dextrose (Dextrose 50 % 25 Gm/50 Ml Syringe) 25 gm IVPUSH Q15M PRN; Protocol PRN Reason: per Hypoglycemia Standing Ord. Gabapentin (Gabapentin 600 Mg Tablet) 600 mg PO TID [facility] Last Admin: 08/19/21 14:25 Dose: 600 mg Documented by: ANGELO Glucose (Glucose Gel 15 Gm Gel..Gram.) 15 gm PO Q15M PRN; Protocol PRN Reason: per Hypoglycemia Standing Ord. Heparin Sodium (Porcine) (Heparin Sodium,Porcine 5,000 Unit/Ml Vial) 5,000 unit SUBCUT Q8H [facility] Last Admin: 08/19/21 14:24 Dose: 5,000 unit Documented by: ANGELO Vancomycin HCl 1,250 mg/ (Sodium Chloride) 250 mls @ 166.667 mls/hr IV Q12H [facility] Last Infusion: 08/19/21 16:00 Dose: 0 mls/hr Documented by: ANGELO Insulin Glargine (Insulin Glargine,Hum.Rec.Anlog 100 Unit/Ml 10 Ml Vial) 16 unit SUBCUT BID [facility] Insulin Human Lispro (Insulin Lispro 100 Unit/Ml 3 Ml Vial) 0 unit SUBCUT QIDACHS [facility]; Protocol Last Admin: 08/19/21 14:24 Dose: 2 unit Documented by: ANGELO Comments: B/S 155 Melatonin (Melatonin 3 Mg Tablet) 6 mg PO BEDTIME PRN PRN Reason: Insomnia Pharmacy Consult (Consult Rx Vancomycin Dosing) 1 each MISCELLANE DAILY PRN PRN Reason: Consult order Senna (Sennosides 8.6 Mg Tablet) 17.2 mg PO BEDTIME PRN PRN Reason: Constipation Sodium Chloride (0.9 % Sodium Chloride Flush 3 Ml Syringe) 3 ml IVFLUSH QSHIFT [facility] Last Admin: 08/19/21 14:25 Dose: Not Given Documented by: ANGELO Non-Admin Reason: Med Not Available Labs CBC & Chem 7: 08/19/21 06:58 08/19/21 06:58 Labs: Laboratory Results - last 24 hr 08/18/21 08/18/21 08/19/21 17:46 21:09 06:58 Anion Gap 13 Estim Creat Clear Calc 112.2 Estimated GFR > 60 POC Glucose 233 H 296 H Random Glucose 185 H D Calcium 9.4 D Specimen Comment 08/19/21 08/19/21 08/19/21 07:50 11:58 13:11 Anion Gap Estim Creat Clear Calc Estimated GFR POC Glucose 184 H 155 H Random Glucose Calcium Specimen Comment DELAY Microbiology Microbiology Results: Microbiology 08/17/21 00:25 Blood Culture - Preliminary Blood - Venous No growth after 48 hours. 08/17/21 00:25 Blood Culture - Preliminary Blood - Venous No growth after 48 hours. Procedures Date of Service Date of Service: 08/19/21 Progress Note: A&P Assessment and plan (1) Osteomyelitis: Status: Acute Assessment and Plan: Looks well and comfortable He says that he is still considering amputation for osteomyelitis of his toe bones Other option is to continue antibiotics, may be switched to p.o. He says that he will talk to his family tonight and will decide option of amputation with BKA, left Fall Risk Details Current Medications: Current Medications Acetaminophen (Acetaminophen 325 Mg Tablet) 650 mg PO Q6H PRN PRN Reason: Pain, Mild (Pain Scale 1-3) Dextrose (Dextrose 50 % 25 Gm/50 Ml Syringe) 25 gm IVPUSH Q15M PRN; Protocol PRN Reason: per Hypoglycemia Standing Ord. Gabapentin (Gabapentin 600 Mg Tablet) 600 mg PO TID [facility] Last Admin: 08/19/21 14:25 Dose: 600 mg Documented by: Glucose (Glucose Gel 15 Gm Gel..Gram.) 15 gm PO Q15M PRN; Protocol PRN Reason: per Hypoglycemia Standing Ord. Heparin Sodium (Porcine) (Heparin Sodium,Porcine 5,000 Unit/Ml Vial) 5,000 unit SUBCUT Q8H [facility] Last Admin: 08/19/21 14:24 Dose: 5,000 unit Documented by: Vancomycin HCl 1,250 mg/ (Sodium Chloride) 250 mls @ 166.667 mls/hr IV Q12H [facility] Last Infusion: 08/19/21 16:00 Dose: Infused Documented by: Insulin Glargine (Insulin Glargine,Hum.Rec.Anlog 100 Unit/Ml 10 Ml Vial) 16 unit SUBCUT BID [facility] Insulin Human Lispro (Insulin Lispro 100 Unit/Ml 3 Ml Vial) 0 unit SUBCUT QIDACHS [facility]; Protocol Last Admin: 08/19/21 14:24 Dose: 2 unit Documented by: Melatonin (Melatonin 3 Mg Tablet) 6 mg PO BEDTIME PRN PRN Reason: Insomnia Pharmacy Consult (Consult Rx Vancomycin Dosing) 1 each MISCELLANE DAILY PRN PRN Reason: Consult order Senna (Sennosides 8.6 Mg Tablet) 17.2 mg PO BEDTIME PRN PRN Reason: Constipation Sodium Chloride (0.9 % Sodium Chloride Flush 3 Ml Syringe) 3 ml IVFLUSH QSHIFT [facility] Last Admin: 08/19/21 14:25 Dose: Not Given Documented by: Time Spent With Patient Time: Total time spent is greater than 50% in coordination of care (as documented) at patient's floor/unit and/or counseling patient: Time with patient: 15 - 24 minutes Quality Stroke Does the patient have a stroke diagnosis?: No VTE Prior VTE?: No VTE Risk Level:: Medical - moderate - high VTE Device Contraindication: Treatment Not Indicated VTE Drug Contraindication: N/A - Med Ordered
[2021-08-19 17:40] LABS: Glucose, Whole Blood 242 mg/dL (60-115)
[2021-08-19 18:41] LABS: Vancomycin Trough 14.1 mcg/mL (10.0-20.0)
[2021-08-19 19:06] VITALS: BP 137/72; PULSE 84; RESP 16; TEMP 37.1; O2SAT 98
--- NOTE | 2021-08-19 19:10 | PHA.PROG ---
Admission Date/Time: August 17, 2021 02:37 Indication: Weight in k.647 kg Adjusted body weight in Kg: [place] [facility] body weight in Kg: Obesity Dosing Indication % IBW: Serum Creatinine - Last 168 Hours 08/17/21 08/17/21 08/18/21 00:42 03:11 12:09 Creatinine 1.27 1.17 1.04 08/19/21 06:58 Creatinine 0.95 Estimated CrCl and GFR - Last 168 Hours 08/17/21 08/17/21 08/18/21 00:42 03:11 12:09 Estim Creat Clear Calc 83.9 91.1 102.5 Estimated GFR > 60 > 60 > 60 08/19/21 06:58 Estim Creat Clear Calc 112.2 Estimated GFR > 60 Vancomycin Loading Dose: Current Vancomycin Dosing Regimen: Vancomycin Monitoring using AUC goal of 400 - 600 range with trough as surrogate marker: Date and Time for next Vancomycin Level to be drawn: Vancomycin Trough 14.1 mcg/mL (10.0-20.0) 08/19/21 11:58 Pharmacist Comments on Vancomycin Plan:cont 1250 mg Vancomycin dosing will take advantage of [employer] as a clinical decision support tool that uses Bayesian modeling to calculate individual patient's pharmacokinetic parameters and forecast the patient's drug concentration time course with the target goal AUC 24 range of 400 - 600 mg/L/hr.
--- NOTE | 2021-08-19 19:11 | PC.NURSE ---
Assumed care of pt at 1900. Pt resting in bed, in NAD. Visitor at bedside. Pt awaiting inpatient bed assignment
[2021-08-19 21:10] LABS: Glucose, Whole Blood 305 mg/dL (60-115)
[2021-08-19] MEDS: Insulin Glargine,Hum.rec.anlog 100 UNIT/ML 10 ML VIAL 16 UNIT SUBCUT (21:53)
[2021-08-19 23:52] VITALS: BP 130/70; PULSE 73; RESP 16; O2SAT 97
[2021-08-20] MEDS: vancomycin HCL 1,250 MG in 0.9 % Sodium Chloride 250 ML 166.67 MG IV (02:04)
[2021-08-20] MEDS: Heparin Sodium,Porcine 5,000 UNIT/ML VIAL 5000 UNIT SUBCUT ×3 (06:16→22:02)
[2021-08-20 07:45] LABS: Glucose, Whole Blood 414 mg/dL (60-115)
[2021-08-20] MEDS: Insulin Glargine,Hum.rec.anlog 100 UNIT/ML 10 ML VIAL 16 UNIT SUBCUT ×2 (08:10→22:01)
[2021-08-20] MEDS: Insulin Lispro 100 UNIT/ML 3 ML VIAL SUBCUT ×4 (08:10→22:01)
[2021-08-20] MEDS: Gabapentin 600 MG TABLET PO ×3 (08:10→22:01)
[2021-08-20 08:45] VITALS: BP 139/60; PULSE 77; RESP 12; TEMP 36.8; O2SAT 95
[2021-08-20 12:36] LABS: Glucose, Whole Blood 232 mg/dL (60-115)
[2021-08-20 12:37] LABS: Creatinine Clr Calc Pharmacy 91.1; Estimated Glomerular Filt Rate > 60
[2021-08-20 12:44] LABS: Vancomycin Trough 16.9 mcg/mL (10.0-20.0)
--- NOTE | 2021-08-20 13:14 | PHA.PROG ---
Admission Date/Time: August 17, 2021 02:37 Indication: Bactermia Weight in k.647 kg Adjusted body weight in K.83 kg [place] body weight in K.3 kg Obesity Dosing Indication % IBW: N/A Serum Creatinine - Last 168 Hours 08/17/21 08/17/21 08/18/21 00:42 03:11 12:09 Creatinine 1.27 1.17 1.04 08/19/21 08/20/21 06:58 11:59 Creatinine 0.95 1.17 Estimated CrCl and GFR - Last 168 Hours 08/17/21 08/17/21 08/18/21 00:42 03:11 12:09 Estim Creat Clear Calc 83.9 91.1 102.5 Estimated GFR > 60 > 60 > 60 08/19/21 08/20/21 06:58 11:59 Estim Creat Clear Calc 112.2 91.1 Estimated GFR > 60 > 60 Vancomycin Loading Dose: N/A Current Vancomycin Dosing Regimen: 1250 mg Q12H Vancomycin Trough 16.9 mcg/mL (10.0-20.0) 08/20/21 11:59 Pharmacist Comments on Vancomycin Plan: Trough increased from 14.1 to 16.9 and SCr had a slightly increase form 0.95 to 1.17 after 2 more dose of vancomycin 1250 mg Will decrease dose to 1000 mg Q12H New expect AUC is 448 with trough 14 Pharmacy will continue to monitor renal function daily Next trough: 08/21 @ 1200 Leticia Shell PharmD Vancomycin dosing will take advantage of [employer] as a clinical decision support tool that uses Bayesian modeling to calculate individual patient's pharmacokinetic parameters and forecast the patient's drug concentration time course with the target goal AUC 24 range of 400 - 600 mg/L/hr.
[2021-08-20] MEDS: vancomycin HCL 1,000 MG in 0.9 % Sodium Chloride 250 ML 270 MG IV (13:18)
--- NOTE | 2021-08-20 14:29 | HO.PM.IMPN ---
Subjective Subjective Date of Service: 08/20/21 Interval History: noted to have elevated blood sugars around 400 this morning drinking 0 calorie Gatorade, denies left leg pain, spoke with Dr. Randall this morning regarding left BKA patient still thinking about undergoing procedure, if he agrees then he will undergo procedures today or tomorrow. 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 Neck no JVD. CVS? regular rate rhythm, Respiratory lungs clear to auscultation, no respiratory distress, no wheeze, no rhonchi. Gastrointestinal abdomen soft, nontender, bowel sounds audible. Extremities no edema, left foot stump without open wounds, no swelling, no tenderness, no redness over ankle joint, noted to have pus center of callus, plantar surface,with surrounding erythema.? Neuro nonfocal Skin pallor psych appropriate affect Objective Data Active Medications Acetaminophen (Acetaminophen 325 Mg Tablet) 650 mg PO Q6H PRN PRN Reason: Pain, Mild (Pain Scale 1-3) Dextrose (Dextrose 50 % 25 Gm/50 Ml Syringe) 25 gm IVPUSH Q15M PRN; Protocol PRN Reason: per Hypoglycemia Standing Ord. Gabapentin (Gabapentin 600 Mg Tablet) 600 mg PO TID [facility] Last Admin: 08/20/21 08:10 Dose: 600 mg Documented by: MIRIAN Glucose (Glucose Gel 15 Gm Gel..Gram.) 15 gm PO Q15M PRN; Protocol PRN Reason: per Hypoglycemia Standing Ord. Heparin Sodium (Porcine) (Heparin Sodium,Porcine 5,000 Unit/Ml Vial) 5,000 unit SUBCUT Q8H [facility] Last Admin: 08/20/21 13:18 Dose: 5,000 unit Documented by: MIRIAN Vancomycin HCl 1,000 mg/ (Sodium Chloride) 270 mls @ 270 mls/hr IV Q12H [facility] Last Admin: 08/20/21 13:18 Dose: 270 mls/hr Documented by: MIRIAN Insulin Glargine (Insulin Glargine,Hum.Rec.Anlog 100 Unit/Ml 10 Ml Vial) 16 unit SUBCUT BID [facility] Last Admin: 08/20/21 08:10 Dose: 16 unit Documented by: MIRIAN Insulin Human Lispro (Insulin Lispro 100 Unit/Ml 3 Ml Vial) 0 unit SUBCUT QIDACHS [facility]; Protocol Last Admin: 08/20/21 13:18 Dose: 6 unit Documented by: MIRIAN Melatonin (Melatonin 3 Mg Tablet) 6 mg PO BEDTIME PRN PRN Reason: Insomnia Pharmacy Consult (Consult Rx Vancomycin Dosing) 1 each MISCELLANE DAILY PRN PRN Reason: Consult order Senna (Sennosides 8.6 Mg Tablet) 17.2 mg PO BEDTIME PRN PRN Reason: Constipation Sodium Chloride (0.9 % Sodium Chloride Flush 3 Ml Syringe) 3 ml IVFLUSH QSHIFT [facility] Last Admin: 08/20/21 08:10 Dose: Not Given Documented by: MIRIAN Non-Admin Reason: Previously Administered Labs CBC & Chem 7: 08/19/21 06:58 08/20/21 11:59 Labs: Laboratory Results - last 24 hr 08/19/21 08/19/21 08/19/21 11:58 11:58 17:36 Estim Creat Clear Calc Estimated GFR POC Glucose 242 H Specimen Comment DELAY Vancomycin Trough 14.1 08/19/21 08/20/21 08/20/21 21:06 07:40 11:59 Estim Creat Clear Calc Estimated GFR POC Glucose 305 H 414 H* Specimen Comment Vancomycin Trough 16.9 08/20/21 08/20/21 11:59 12:26 Estim Creat Clear Calc 91.1 Estimated GFR > 60 POC Glucose 232 H Specimen Comment Vancomycin Trough Assessment and Plan (1) Osteomyelitis: Status: Acute (2) Diabetes: Status: Acute Plan 36-year-old male with a past medical history of diabetes, diabetic neuropathy, history of diabetic foot infection/osteomyelitis status post left foot tarsometatarsal amputation, history of foot ulcer on the stump; substance abuse, anemia , recent admission to the hospital for left foot osteomyelitis/MRSA bacteremia[facility] interrupting the treatment presented to the hospital today with a chief complaint of increased left foot pain. Left diabetic foot ulcer/osteomyelitis no pain left leg, no fevers, no chills, no leukocytosis, but noted to have redness mid plantar callus with small amount of pus. Recent MRI showed osteomyelitis of the foot bones.? duplex study left lower extremity showed no DVT blood cultures x2 negative on IV vancomycin and Zosyn day 3, ID rec to continue current iv antibiotics and if no plan for surgery she recommends po Linezolid for 4 weeks since history of prior AMA. Dr. Randall waiting for patient's decision regarding BKA anemia of chronic disease , patient asymptomatic, no chest pain, no palpitation, no lightheadedness or dizziness, hematocrit improved to 26.7, hemoglobin 8.7. follow CBC closely Diabetes mellitus uncontrolled blood sugars, blood sugars cont. Lantus, insulin sliding scale, diabetic diet,monitor fingerstick glucose, and adjust as needed. hemoglobin A1c 9.2 on 09/03/20? strongly recommend compliance with home medications. patient eats chips as snacks and drink Gatorade brought in by girlfriend therefore strongly recommend to avoid unhealthy snacks, follow blood sugar closely History of neuropathy: Continue home gabapentin DVT prophylaxis: [facility] Code status: Full code Quality Stroke Does the patient have a stroke diagnosis?: No VTE Prior VTE?: No VTE Risk Level:: Medical - moderate - high VTE Device Contraindication: Treatment Not Indicated VTE Drug Contraindication: N/A - Med Ordered
[2021-08-20 14:55] VITALS: BP 133/72; PULSE 74; RESP 16; TEMP 36.7; O2SAT 96
--- NOTE | 2021-08-20 15:47 | P.PNGS_ITS ---
Subjective Subjective Date of Service: 08/20/21 Interval history: no new complaints some pain on left foot as per Hospitalist - blood sugars still high periodically Physical Exam Vital Signs: Vital Signs: Last Vital Signs Temp 98.0 F 08/20/21 14:55 Pulse 74 08/20/21 14:55 Resp 16 08/20/21 14:55 BP 133/72 08/20/21 14:55 Pulse Ox 96 08/20/21 14:55 BMI result Body Mass Index 25.1 Const: General: comfortable and no acute distress Resp: Effort & Inspection: normal respiratory effort Cardio: Rate: regular rate GI: Palpation (GI): Soft to palpation and nontender Objective Data Active Medications Acetaminophen (Acetaminophen 325 Mg Tablet) 650 mg PO Q6H PRN PRN Reason: Pain, Mild (Pain Scale 1-3) Dextrose (Dextrose 50 % 25 Gm/50 Ml Syringe) 25 gm IVPUSH Q15M PRN; Protocol PRN Reason: per Hypoglycemia Standing Ord. Gabapentin (Gabapentin 600 Mg Tablet) 600 mg PO TID [facility] Last Admin: 08/20/21 08:10 Dose: 600 mg Documented by: MIRIAN Glucose (Glucose Gel 15 Gm Gel..Gram.) 15 gm PO Q15M PRN; Protocol PRN Reason: per Hypoglycemia Standing Ord. Heparin Sodium (Porcine) (Heparin Sodium,Porcine 5,000 Unit/Ml Vial) 5,000 unit SUBCUT Q8H [facility] Last Admin: 08/20/21 13:18 Dose: 5,000 unit Documented by: MIRIAN Vancomycin HCl 1,000 mg/ (Sodium Chloride) 270 mls @ 270 mls/hr IV Q12H [facility] Last Infusion: 08/20/21 14:49 Dose: 0 mls/hr Documented by: OREN Piperacillin Sod/Tazobactam (Sod 3.375 gm/ Sodium Chloride) 50 mls @ 100 mls/hr IV Q6H [facility] Insulin Glargine (Insulin Glargine,Hum.Rec.Anlog 100 Unit/Ml 10 Ml Vial) 16 unit SUBCUT BID [facility] Last Admin: 08/20/21 08:10 Dose: 16 unit Documented by: MIRIAN Insulin Human Lispro (Insulin Lispro 100 Unit/Ml 3 Ml Vial) 0 unit SUBCUT QIDACHS [facility]; Protocol Last Admin: 08/20/21 13:18 Dose: 6 unit Documented by: MIRIAN Melatonin (Melatonin 3 Mg Tablet) 6 mg PO BEDTIME PRN PRN Reason: Insomnia Pharmacy Consult (Consult Rx Vancomycin Dosing) 1 each MISCELLANE DAILY PRN PRN Reason: Consult order Senna (Sennosides 8.6 Mg Tablet) 17.2 mg PO BEDTIME PRN PRN Reason: Constipation Sodium Chloride (0.9 % Sodium Chloride Flush 3 Ml Syringe) 3 ml IVFLUSH QSHIFT [facility] Last Admin: 08/20/21 08:10 Dose: Not Given Documented by: MIRIAN Non-Admin Reason: Previously Administered Labs CBC & Chem 7: 08/19/21 06:58 08/20/21 11:59 Labs: Laboratory Results - last 24 hr 08/19/21 08/19/21 08/19/21 11:58 17:36 21:06 Estim Creat Clear Calc Estimated GFR POC Glucose 242 H 305 H Vancomycin Trough 14.1 08/20/21 08/20/21 08/20/21 07:40 11:59 11:59 Estim Creat Clear Calc 91.1 Estimated GFR > 60 POC Glucose 414 H* Vancomycin Trough 16.9 08/20/21 12:26 Estim Creat Clear Calc Estimated GFR POC Glucose 232 H Vancomycin Trough Procedures Date of Service Date of Service: 08/20/21 Progress Note: A&P Assessment and plan (1) Foot osteomyelitis, left: Status: Acute Assessment and Plan: says he is willing to go for BKA, left explained technique of BKA discussed risks including but not limited to bleeding, infections, poor healing, need for more proximal amputation, pain, incl phantom pain explained benefits and alternatives temporarily on for BKA, left, tomorrow Fall Risk Details Current Medications: Current Medications Acetaminophen (Acetaminophen 325 Mg Tablet) 650 mg PO Q6H PRN PRN Reason: Pain, Mild (Pain Scale 1-3) Dextrose (Dextrose 50 % 25 Gm/50 Ml Syringe) 25 gm IVPUSH Q15M PRN; Protocol PRN Reason: per Hypoglycemia Standing Ord. Gabapentin (Gabapentin 600 Mg Tablet) 600 mg PO TID [facility] Last Admin: 08/20/21 08:10 Dose: 600 mg Documented by: Glucose (Glucose Gel 15 Gm Gel..Gram.) 15 gm PO Q15M PRN; Protocol PRN Reason: per Hypoglycemia Standing Ord. Heparin Sodium (Porcine) (Heparin Sodium,Porcine 5,000 Unit/Ml Vial) 5,000 unit SUBCUT Q8H [facility] Last Admin: 08/20/21 13:18 Dose: 5,000 unit Documented by: Vancomycin HCl 1,000 mg/ (Sodium Chloride) 270 mls @ 270 mls/hr IV Q12H [facility] Last Infusion: 08/20/21 14:49 Dose: Infused Documented by: Piperacillin Sod/Tazobactam (Sod 3.375 gm/ Sodium Chloride) 50 mls @ 100 mls/hr IV Q6H [facility] Insulin Glargine (Insulin Glargine,Hum.Rec.Anlog 100 Unit/Ml 10 Ml Vial) 16 unit SUBCUT BID [facility] Last Admin: 08/20/21 08:10 Dose: 16 unit Documented by: Insulin Human Lispro (Insulin Lispro 100 Unit/Ml 3 Ml Vial) 0 unit SUBCUT QIDACHS [facility]; Protocol Last Admin: 08/20/21 13:18 Dose: 6 unit Documented by: Melatonin (Melatonin 3 Mg Tablet) 6 mg PO BEDTIME PRN PRN Reason: Insomnia Pharmacy Consult (Consult Rx Vancomycin Dosing) 1 each MISCELLANE DAILY PRN PRN Reason: Consult order Senna (Sennosides 8.6 Mg Tablet) 17.2 mg PO BEDTIME PRN PRN Reason: Constipation Sodium Chloride (0.9 % Sodium Chloride Flush 3 Ml Syringe) 3 ml IVFLUSH QSHIFT [facility] Last Admin: 08/20/21 08:10 Dose: Not Given Documented by: Time Spent With Patient Time: Total time spent is greater than 50% in coordination of care (as documented) at patient's floor/unit and/or counseling patient: Time with patient: 15 - 24 minutes Quality Stroke Does the patient have a stroke diagnosis?: No VTE Prior VTE?: No VTE Risk Level:: Medical - moderate - high VTE Device Contraindication: Treatment Not Indicated VTE Drug Contraindication: N/A - Med Ordered
[2021-08-20 16:44] LABS: Glucose, Whole Blood 233 mg/dL (60-115)
[2021-08-20] MEDS: Piperacillin Sodium/Tazobactam 3.375 GM in 0.9 % Sodium Chloride 50 ML IV ×2 (16:59→22:08)
[2021-08-20 21:57] LABS: Glucose, Whole Blood 353 mg/dL (60-115)
[2021-08-21] MEDS: 0.9 % Sodium Chloride Flush 3 ML SYRINGE IVFLUSH ×4 (00:12→20:24)
[2021-08-21 01:56] VITALS: BP 128/76; PULSE 76; RESP 16; TEMP 36.6; O2SAT 96
[2021-08-21] MEDS: vancomycin HCL 1,000 MG in 0.9 % Sodium Chloride 250 ML 270 MG IV ×2 (02:24→15:45)
[2021-08-21] MEDS: Piperacillin Sodium/Tazobactam 3.375 GM in 0.9 % Sodium Chloride 50 ML IV ×4 (04:17→20:25)
--- NOTE | 2021-08-21 05:00 | PC.NURSE ---
RESTING COMF ALL NIGHT.NO C/O PAIN.NPO SINCE MIDNIGHT.VOIDING IN URINAL
--- NOTE | 2021-08-21 06:35 | PC.NURSE ---
PT GOING TO ROOM 444,REPORT GIVEN TO JON
[2021-08-21 07:18] LABS: Glucose, Whole Blood 277 mg/dL (60-115)
[2021-08-21 07:39] LABS: Hemoglobin 8.3 g/dl (14.0-18.0); Mean Corpuscular HGB Conc 31.9 g/dl (31.0-36.0); Mean Corpuscular Hemoglobin 25.4 pg (27.0-33.0); Mean Corpuscular Volume 79.5 fL (80.0-98.0); Mean Platelet Volume 9.1 fL (9.4-12.4); Platelet Count 324 X10*3/uL (160-400); Red Blood Count 3.27 X10*6/uL (4.60-5.80); Red Cell Distribution Width 13.7 % (11.0-16.0); White Blood Count 5.1 X10*3/uL (4.8-10.8)
[2021-08-21 07:56] LABS: Anion Gap 10 (12-20); Blood Urea Nitrogen 15 mg/dL (9-16); Calcium 9.2 mg/dL (8.4-10.2); Carbon Dioxide 35 mmol/L (22-29); Chloride 94 mmol/L (96-108); Creatinine Clr Calc Pharmacy 89.6; Estimated Glomerular Filt Rate > 60; Glucose Random 293 mg/dL (60-115); Sodium 134 mmol/L (135-145)
[2021-08-21 08:00] VITALS: BP 132/73; PULSE 79; RESP 18; TEMP 36.4; O2SAT 97
[2021-08-21] MEDS: Insulin Glargine,Hum.rec.anlog 100 UNIT/ML 10 ML VIAL 16 UNIT SUBCUT ×2 (09:36→20:22)
[2021-08-21 09:50] LABS: Glucose, Whole Blood 276 mg/dL (60-115)
[2021-08-21 10:55] VITALS: BP 124/74; PULSE 69; RESP 18; TEMP 36.8; O2SAT 98
--- NOTE | 2021-08-21 11:23 | HO.PM.IMPN ---
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 Neck no JVD. CVS? regular rate rhythm, Respiratory lungs clear to auscultation, no respiratory distress, no wheeze, no rhonchi. Gastrointestinal abdomen soft, nontender, bowel sounds audible. Extremities no edema, left foot stump without open wounds, no swelling, no tenderness, no redness over ankle joint, noted to have pus center of callus, plantar surface,with surrounding erythema.? Neuro nonfocal Skin pallor psych appropriate affect Objective Data Active Medications Acetaminophen (Acetaminophen 325 Mg Tablet) 650 mg PO Q6H PRN PRN Reason: Pain, Mild (Pain Scale 1-3) Dextrose (Dextrose 50 % 25 Gm/50 Ml Syringe) 25 gm IVPUSH Q15M PRN; Protocol PRN Reason: per Hypoglycemia Standing Ord. Gabapentin (Gabapentin 600 Mg Tablet) 600 mg PO TID [facility] Last Admin: 08/21/21 09:34 Dose: Not Given Documented by: REAL Non-Admin Reason: NPO Glucose (Glucose Gel 15 Gm Gel..Gram.) 15 gm PO Q15M PRN; Protocol PRN Reason: per Hypoglycemia Standing Ord. Heparin Sodium (Porcine) (Heparin Sodium,Porcine 5,000 Unit/Ml Vial) 5,000 unit SUBCUT Q8H [facility] Last Admin: 08/21/21 05:28 Dose: Not Given Documented by: MILTON Non-Admin Reason: PENDING OR TODAY Vancomycin HCl 1,000 mg/ (Sodium Chloride) 270 mls @ 270 mls/hr IV Q12H [facility] Last Infusion: 08/21/21 03:34 Dose: 0 mls/hr Documented by: MILTON Piperacillin Sod/Tazobactam (Sod 3.375 gm/ Sodium Chloride) 50 mls @ 100 mls/hr IV Q6H [facility] Last Infusion: 08/21/21 10:21 Dose: 0 mls/hr Documented by: REAL Insulin Glargine (Insulin Glargine,Hum.Rec.Anlog 100 Unit/Ml 10 Ml Vial) 16 unit SUBCUT BID [facility] Last Admin: 08/21/21 09:36 Dose: 16 unit Documented by: REAL Comments: Pt NPO. POC 276 Insulin Human Lispro (Insulin Lispro 100 Unit/Ml 3 Ml Vial) 0 unit SUBCUT QIDACHS [facility]; Protocol Last Admin: 08/21/21 09:21 Dose: Not Given Documented by: REAL Non-Admin Reason: pt in ED and NPO Melatonin (Melatonin 3 Mg Tablet) 6 mg PO BEDTIME PRN PRN Reason: Insomnia Pharmacy Consult (Consult Rx Vancomycin Dosing) 1 each MISCELLANE DAILY PRN PRN Reason: Consult order Senna (Sennosides 8.6 Mg Tablet) 17.2 mg PO BEDTIME PRN PRN Reason: Constipation Sodium Chloride (0.9 % Sodium Chloride Flush 3 Ml Syringe) 3 ml IVFLUSH QSHIFT [facility] Last Admin: 08/21/21 09:34 Dose: 3 ml Documented by: REAL Labs CBC & Chem 7: 08/21/21 07:06 08/21/21 07:06 Labs: Laboratory Results - last 24 hr 08/20/21 08/20/21 08/20/21 11:59 11:59 12:26 MCV MCH MCHC RDW Plt Count MPV Absolute Nucleated RBC Nucleated RBC % (auto) Anion Gap Estim Creat Clear Calc 91.1 Estimated GFR > 60 POC Glucose 232 H Random Glucose Calcium Vancomycin Trough 16.9 Blood Type Antibody Screen 08/20/21 08/20/21 08/21/21 16:41 21:52 07:06 MCV 79.5 L MCH 25.4 L MCHC 31.9 RDW 13.7 Plt Count 324 MPV 9.1 L Absolute Nucleated RBC 0.000 Nucleated RBC % (auto) 0.0 Anion Gap Estim Creat Clear Calc Estimated GFR POC Glucose 233 H 353 H* Random Glucose Calcium Vancomycin Trough Blood Type Antibody Screen 08/21/21 08/21/21 08/21/21 07:06 07:09 09:06 MCV MCH MCHC RDW Plt Count MPV Absolute Nucleated RBC Nucleated RBC % (auto) Anion Gap 10 L Estim Creat Clear Calc 89.6 Estimated GFR > 60 POC Glucose 277 H Random Glucose 293 H D Calcium 9.2 Vancomycin Trough Blood Type O Positive Antibody Screen NEGATIVE 08/21/21 09:39 MCV MCH MCHC RDW Plt Count MPV Absolute Nucleated RBC Nucleated RBC % (auto) Anion Gap Estim Creat Clear Calc Estimated GFR POC Glucose 276 H Random Glucose Calcium Vancomycin Trough Blood Type Antibody Screen Assessment and Plan (1) Osteomyelitis: Status: Acute (2) Diabetes: Status: Acute Plan 36-year-old male with a past medical history of diabetes, diabetic neuropathy, history of diabetic foot infection/osteomyelitis status post left foot tarsometatarsal amputation, history of foot ulcer on the stump; substance abuse, anemia , recent admission to the hospital for left foot osteomyelitis/MRSA bacteremia, [facility] on 08/04/2021 interrupting the treatment presented to the hospital today with a chief complaint of increased left foot pain. Left diabetic foot ulcer/osteomyelitis, has not responded to Abx and so has elected to ampuation today anemia of chronic disease , patient asymptomatic, no chest pain, no palpitation, no lightheadedness or dizziness, hematocrit improved to 26.7, hemoglobin 8.7. follow CBC closely Diabetes mellitus uncontrolled blood sugars, blood sugars cont. Lantus, insulin sliding scale, diabetic diet,monitor fingerstick glucose, and adjust as needed. hemoglobin A1c 9.2 on 09/03/20? strongly recommend compliance with home medications. patient eats chips as snacks and drink Gatorade brought in by girlfriend therefore strongly recommend to avoid unhealthy snacks, follow blood sugar closely History of neuropathy: Continue home gabapentin DVT prophylaxis: [facility] Code status: Full code Quality Stroke Does the patient have a stroke diagnosis?: No VTE Prior VTE?: No VTE Risk Level:: Medical - moderate - high VTE Device Contraindication: Treatment Not Indicated VTE Drug Contraindication: N/A - Med Ordered
[2021-08-21 12:57] LABS: Creatinine Clr Calc Pharmacy 94.4; Estimated Glomerular Filt Rate > 60
[2021-08-21 13:09] LABS: Vancomycin Trough 13.9 mcg/mL (10.0-20.0)
--- NOTE | 2021-08-21 13:29 | HE.PHANOTE ---
RE VANCOMYCIN Latest trough was 13.9; SCR was 1.13. Continue 1g Q12H; next trough 08/22 @1200
--- NOTE | 2021-08-21 15:13 | PM.PNGS ---
Subjective Subjective Date of Service: 08/21/21 Interval history: Feels well no pain denies complaints Physical Exam Vital Signs: Vital Signs: Last Vital Signs Temp 98.2 F 08/21/21 10:55 Pulse 69 08/21/21 10:55 Resp 18 08/21/21 10:55 BP 124/74 08/21/21 10:55 Pulse Ox 98 08/21/21 10:55 BMI result Body Mass Index 25.1 Const: General: comfortable and no acute distress Resp: Effort & Inspection: normal respiratory effort Cardio: Rate: regular rate GI: Palpation (GI): Soft to palpation and nontender Extrem: Other: left foot with transmetatarsal stump, no cellulitis, scanty drainage from a plantar ulcer,, no fluctuance, no for necrotizing process Objective Data Active Medications Acetaminophen (Acetaminophen 325 Mg Tablet) 650 mg PO Q6H PRN PRN Reason: Pain, Mild (Pain Scale 1-3) Dextrose (Dextrose 50 % 25 Gm/50 Ml Syringe) 25 gm IVPUSH Q15M PRN; Protocol PRN Reason: per Hypoglycemia Standing Ord. Gabapentin (Gabapentin 600 Mg Tablet) 600 mg PO TID [facility] Last Admin: 08/21/21 09:34 Dose: Not Given Documented by: REAL Non-Admin Reason: NPO Glucose (Glucose Gel 15 Gm Gel..Gram.) 15 gm PO Q15M PRN; Protocol PRN Reason: per Hypoglycemia Standing Ord. Heparin Sodium (Porcine) (Heparin Sodium,Porcine 5,000 Unit/Ml Vial) 5,000 unit SUBCUT Q8H [facility] Last Admin: 08/21/21 05:28 Dose: Not Given Documented by: MILTON Non-Admin Reason: PENDING OR TODAY Vancomycin HCl 1,000 mg/ (Sodium Chloride) 270 mls @ 270 mls/hr IV Q12H [facility] Last Infusion: 08/21/21 03:34 Dose: 0 mls/hr Documented by: MILTON Piperacillin Sod/Tazobactam (Sod 3.375 gm/ Sodium Chloride) 50 mls @ 100 mls/hr IV Q6H [facility] Last Infusion: 08/21/21 10:21 Dose: 0 mls/hr Documented by: REAL Insulin Glargine (Insulin Glargine,Hum.Rec.Anlog 100 Unit/Ml 10 Ml Vial) 16 unit SUBCUT BID [facility] Last Admin: 08/21/21 09:36 Dose: 16 unit Documented by: REAL Comments: Pt NPO. POC 276 Insulin Human Lispro (Insulin Lispro 100 Unit/Ml 3 Ml Vial) 0 unit SUBCUT QIDACHS [facility]; Protocol Last Admin: 08/21/21 11:35 Dose: Not Given Documented by: REAL Non-Admin Reason: NPO Melatonin (Melatonin 3 Mg Tablet) 6 mg PO BEDTIME PRN PRN Reason: Insomnia Pharmacy Consult (Consult Rx Vancomycin Dosing) 1 each MISCELLANE DAILY PRN PRN Reason: Consult order Senna (Sennosides 8.6 Mg Tablet) 17.2 mg PO BEDTIME PRN PRN Reason: Constipation Sodium Chloride (0.9 % Sodium Chloride Flush 3 Ml Syringe) 3 ml IVFLUSH QSHIFT [facility] Last Admin: 08/21/21 09:34 Dose: 3 ml Documented by: REAL Labs CBC & Chem 7: 08/21/21 07:06 08/21/21 12:26 Labs: Laboratory Results - last 24 hr 08/20/21 08/20/21 08/21/21 16:41 21:52 07:06 MCV 79.5 L MCH 25.4 L MCHC 31.9 RDW 13.7 Plt Count 324 MPV 9.1 L Absolute Nucleated RBC 0.000 Nucleated RBC % (auto) 0.0 Anion Gap Estim Creat Clear Calc Estimated GFR POC Glucose 233 H 353 H* Random Glucose Calcium Vancomycin Trough Blood Type Antibody Screen 08/21/21 08/21/21 08/21/21 07:06 07:09 09:06 MCV MCH MCHC RDW Plt Count MPV Absolute Nucleated RBC Nucleated RBC % (auto) Anion Gap 10 L Estim Creat Clear Calc 89.6 Estimated GFR > 60 POC Glucose 277 H Random Glucose 293 H D Calcium 9.2 Vancomycin Trough Blood Type O Positive Antibody Screen NEGATIVE 08/21/21 08/21/21 08/21/21 09:39 12:26 12:26 MCV MCH MCHC RDW Plt Count MPV Absolute Nucleated RBC Nucleated RBC % (auto) Anion Gap Estim Creat Clear Calc 94.4 Estimated GFR > 60 POC Glucose 276 H Random Glucose Calcium Vancomycin Trough 13.9 Blood Type Antibody Screen Procedures Date of Service Date of Service: 08/21/21 Progress Note: A&P Assessment and plan (1) Osteomyelitis: Status: Acute Assessment and Plan: he had decided yesterday that he will go for amputation instead of long-term IV antibiotics he was placed on the schedule today for BKA of the left leg however, there has been a lot of delays in the or because of volume all cases I told him that we were running late that I am uncertain as to what time exactly what time the OR will be able to accommodate the case he did not want to stay NPO for a few more hours and stated that he is okay to wait until Tuesday as long as he can food, stating he is already hungry informed primary service therefore he remains stable, nonseptic again placed on the OR schedule for Tuesday patient understands plan Fall Risk Details Current Medications: Current Medications Acetaminophen (Acetaminophen 325 Mg Tablet) 650 mg PO Q6H PRN PRN Reason: Pain, Mild (Pain Scale 1-3) Dextrose (Dextrose 50 % 25 Gm/50 Ml Syringe) 25 gm IVPUSH Q15M PRN; Protocol PRN Reason: per Hypoglycemia Standing Ord. Gabapentin (Gabapentin 600 Mg Tablet) 600 mg PO TID [facility] Last Admin: 08/21/21 09:34 Dose: Not Given Documented by: Glucose (Glucose Gel 15 Gm Gel..Gram.) 15 gm PO Q15M PRN; Protocol PRN Reason: per Hypoglycemia Standing Ord. Heparin Sodium (Porcine) (Heparin Sodium,Porcine 5,000 Unit/Ml Vial) 5,000 unit SUBCUT Q8H [facility] Last Admin: 08/21/21 05:28 Dose: Not Given Documented by: Vancomycin HCl 1,000 mg/ (Sodium Chloride) 270 mls @ 270 mls/hr IV Q12H [facility] Last Infusion: 08/21/21 03:34 Dose: Infused Documented by: Piperacillin Sod/Tazobactam (Sod 3.375 gm/ Sodium Chloride) 50 mls @ 100 mls/hr IV Q6H [facility] Last Infusion: 08/21/21 10:21 Dose: Infused Documented by: Insulin Glargine (Insulin Glargine,Hum.Rec.Anlog 100 Unit/Ml 10 Ml Vial) 16 unit SUBCUT BID [facility] Last Admin: 08/21/21 09:36 Dose: 16 unit Documented by: Insulin Human Lispro (Insulin Lispro 100 Unit/Ml 3 Ml Vial) 0 unit SUBCUT QIDACHS [facility]; Protocol Last Admin: 08/21/21 11:35 Dose: Not Given Documented by: Melatonin (Melatonin 3 Mg Tablet) 6 mg PO BEDTIME PRN PRN Reason: Insomnia Pharmacy Consult (Consult Rx Vancomycin Dosing) 1 each MISCELLANE DAILY PRN PRN Reason: Consult order Senna (Sennosides 8.6 Mg Tablet) 17.2 mg PO BEDTIME PRN PRN Reason: Constipation Sodium Chloride (0.9 % Sodium Chloride Flush 3 Ml Syringe) [facility] Last Admin: 08/21/21 09:34 Dose: 3 ml Documented by: Time Spent With Patient Time: Total time spent is greater than 50% in coordination of care (as documented) at patient's floor/unit and/or counseling patient: Time with patient: 15 - 24 minutes Quality Stroke Does the patient have a stroke diagnosis?: No VTE Prior VTE?: No VTE Risk Level:: Medical - moderate - high VTE Device Contraindication: Treatment Not Indicated VTE Drug Contraindication: N/A - Med Ordered
--- NOTE | 2021-08-21 15:31 | MHC.CM.PN ---
Male 37 DX Osteomyelitis No discharge today per MD rounds. Patient scheduled for AMP in OR today. DP home with PT. Patient will arrange for a ride at discharge.
[2021-08-21 16:00] VITALS: BP 122/58; PULSE 78; RESP 16; TEMP 37.1; O2SAT 95
[2021-08-21] MEDS: Gabapentin 600 MG TABLET PO ×2 (16:19→20:22)
[2021-08-21] MEDS: Heparin Sodium,Porcine 5,000 UNIT/ML VIAL 5000 UNIT SUBCUT ×2 (16:20→20:24)
[2021-08-21 16:31] LABS: Glucose, Whole Blood 357 mg/dL (60-115)
[2021-08-21] MEDS: Insulin Lispro 100 UNIT/ML 3 ML VIAL SUBCUT ×2 (16:36→20:23)
[2021-08-21 19:41] VITALS: BP 157/77; PULSE 79; RESP 14; TEMP 36.9; O2SAT 96
[2021-08-21 20:16] LABS: Glucose, Whole Blood 265 mg/dL (60-115)
[2021-08-22] VITALS (8 sets, daily range): BP systolic 142–173; BP diastolic 72–86; PULSE 73–94; RESP 16–20; TEMP 36.2–37.1; O2SAT 94–99
[2021-08-22] MEDS: vancomycin HCL 1,000 MG in 0.9 % Sodium Chloride 250 ML 270 MG IV ×2 (03:34→14:29)
[2021-08-22] MEDS: Piperacillin Sodium/Tazobactam 3.375 GM in 0.9 % Sodium Chloride 50 ML IV ×4 (05:08→21:20)
[2021-08-22] MEDS: Heparin Sodium,Porcine 5,000 UNIT/ML VIAL 5000 UNIT SUBCUT ×3 (05:08→21:19)
[2021-08-22 07:35] LABS: Glucose, Whole Blood 220 mg/dL (60-115)
[2021-08-22] MEDS: Insulin Lispro 100 UNIT/ML 3 ML VIAL SUBCUT ×4 (07:48→21:19)
[2021-08-22] MEDS: 0.9 % Sodium Chloride Flush 3 ML SYRINGE IVFLUSH ×3 (07:49→21:21)
[2021-08-22] MEDS: Gabapentin 600 MG TABLET PO ×3 (08:14→21:19)
--- NOTE | 2021-08-22 08:53 | P.PNIM_ITS ---
Subjective Subjective Date of Service: 08/22/21 Interval History: f/u on osteomylitis, BKA is resculed for Tuesday, d/t no OR space yesterday. Has no new complaint Review of Systems [employer]INE[employer] no headache no dizziness CVS no chest pain, no palpable GI no nausea, no vomiting, no diarrhea Physical Exam Vital Signs: Vital Signs: Last Vital Signs Temp 97.4 F 08/22/21 07:30 Pulse 80 08/22/21 07:30 Resp 18 08/22/21 07:30 BP 169/80 H 08/22/21 07:30 Pulse Ox 96 08/22/21 07:30 BMI result Body Mass Index 25.1 Const: Other: General awake alert , no acute distress.? Neck no JVD. CVS? regular rate rhythm, Respiratory lungs clear to auscultation, no respiratory distress, no wheeze, no rhonchi. Gastrointestinal abdomen soft, nontender, bowel sounds audible. Extremities no edema, left foot stump without open wounds, no swelling, no tenderness, no redness over ankle joint, noted to have pus center of callus, plantar surface,with surrounding erythema.? Neuro nonfocal Skin pallor psych appropriate affect Objective Data Active Medications Acetaminophen (Acetaminophen 325 Mg Tablet) 650 mg PO Q6H PRN PRN Reason: Pain, Mild (Pain Scale 1-3) Dextrose (Dextrose 50 % 25 Gm/50 Ml Syringe) 25 gm IVPUSH Q15M PRN; Protocol PRN Reason: per Hypoglycemia Standing Ord. Gabapentin (Gabapentin 600 Mg Tablet) 600 mg PO TID [facility] Last Admin: 08/22/21 08:14 Dose: 600 mg Documented by: APARNA Glucose (Glucose Gel 15 Gm Gel..Gram.) 15 gm PO Q15M PRN; Protocol PRN Reason: per Hypoglycemia Standing Ord. Heparin Sodium (Porcine) (Heparin Sodium,Porcine 5,000 Unit/Ml Vial) 5,000 unit SUBCUT Q8H [facility] Last Admin: 08/22/21 05:08 Dose: 5,000 unit Documented by: FLORIN Vancomycin HCl 1,000 mg/ (Sodium Chloride) 270 mls @ 270 mls/hr IV Q12H [facility] Last Infusion: 08/22/21 04:51 Dose: 0 mls/hr Documented by: FLORIN Piperacillin Sod/Tazobactam (Sod 3.375 gm/ Sodium Chloride) 50 mls @ 100 mls/hr IV Q6H [facility] Last Infusion: 08/22/21 06:09 Dose: 0 mls/hr Documented by: FLORIN Insulin Glargine (Insulin Glargine,Hum.Rec.Anlog 100 Unit/Ml 10 Ml Vial) 16 unit SUBCUT BID [facility] Last Admin: 08/21/21 20:22 Dose: 16 unit Documented by: FLORIN Insulin Human Lispro (Insulin Lispro 100 Unit/Ml 3 Ml Vial) 0 unit SUBCUT QIDACHS [facility]; Protocol Last Admin: 08/22/21 07:48 Dose: 6 unit Documented by: APARNA Melatonin (Melatonin 3 Mg Tablet) 6 mg PO BEDTIME PRN PRN Reason: Insomnia Pharmacy Consult (Consult Rx Vancomycin Dosing) 1 each MISCELLANE DAILY PRN PRN Reason: Consult order Senna (Sennosides 8.6 Mg Tablet) 17.2 mg PO BEDTIME PRN PRN Reason: Constipation Sodium Chloride (0.9 % Sodium Chloride Flush 3 Ml Syringe) 3 ml IVFLUSH QSHIFT [facility] Last Admin: 08/22/21 07:49 Dose: 3 ml Documented by: APARNA Labs CBC & Chem 7: 08/21/21 07:06 08/21/21 12:26 Labs: Laboratory Results - last 24 hr 08/21/21 08/21/21 08/21/21 09:06 09:39 12:26 Estim Creat Clear Calc 94.4 Estimated GFR > 60 POC Glucose 276 H Vancomycin Trough Blood Type O Positive Antibody Screen NEGATIVE 08/21/21 08/21/21 08/21/21 12:26 16:26 20:12 Estim Creat Clear Calc Estimated GFR POC Glucose 357 H* 265 H Vancomycin Trough 13.9 Blood Type Antibody Screen 08/22/21 07:32 Estim Creat Clear Calc Estimated GFR POC Glucose 220 H Vancomycin Trough Blood Type Antibody Screen Microbiology Microbiology Results: Microbiology 08/17/21 00:25 Blood Culture - Final Blood - Venous No growth after 5 days. 08/17/21 00:25 Blood Culture - Final Blood - Venous No growth after 5 days. Assessment and Plan (1) Osteomyelitis: Status: Acute (2) Diabetes: Status: Acute Plan 36-year-old male with a past medical history of diabetes, diabetic neuropathy, history of diabetic foot infection/osteomyelitis status post left foot tarsometatarsal amputation, history of foot ulcer on the stump; substance abuse, anemia , recent admission to the hospital for left foot osteomyelitis/MRSA bacteremia, [facility] on 08/04/2021 interrupting the treatment presented to the hospital today with a chief complaint of increased left foot pain. Left diabetic foot ulcer/osteomyelitis, has not responded to Abx and so has elected to ampuation on Thursday 08/24.. Continue Vanco and Zosyn in the interim. Pain control anemia of chronic disease , patient asymptomatic, no chest pain, no palpitation, no lightheadedness or dizziness, hematocrit improved to 26.7, hemoglobin 8.7. follow CBC closely Diabetes mellitus uncontrolled blood sugars, blood sugars cont. Lantus, insulin sliding scale, diabetic diet,monitor fingerstick glucose, and adjust as needed. hemoglobin A1c 9.2 on 09/03/20? strongly recommend compliance with home medications. patient eats chips as snacks and drink Gatorade brought in by girlfriend therefore strongly recommend to avoid unhealthy snacks, follow blood sugar closely History of neuropathy: Continue home gabapentin DVT prophylaxis: [facility] Code status: Full code Quality Stroke Does the patient have a stroke diagnosis?: No VTE Prior VTE?: No VTE Risk Level:: Medical - moderate - high VTE Device Contraindication: Treatment Not Indicated VTE Drug Contraindication: N/A - Med Ordered
[2021-08-22] MEDS: Insulin Glargine,Hum.rec.anlog 100 UNIT/ML 10 ML VIAL 16 UNIT SUBCUT ×2 (09:48→21:20)
[2021-08-22 11:43] LABS: Glucose, Whole Blood 296 mg/dL (60-115)
[2021-08-22 11:59] LABS: Creatinine Clr Calc Pharmacy 96.1; Estimated Glomerular Filt Rate > 60
[2021-08-22 12:05] LABS: Vancomycin Trough 15.1 mcg/mL (10.0-20.0)
--- NOTE | 2021-08-22 12:10 | HE.PHANOTE ---
Addendum entered by Rayna Bartholomew [facility] 08/22/21 12:14: next trough 08/24 @1200 Original Note: Pt trough 15.1, predicted AUC 418, next trough 08/25@1200
[2021-08-22 16:07] LABS: Glucose, Whole Blood 280 mg/dL (60-115)
[2021-08-22] MEDS: Morphine Sulfate 2 MG/ML CARTRIDGE IVPUSH (16:20)
[2021-08-22 20:35] LABS: Glucose, Whole Blood 250 mg/dL (60-115)
[2021-08-23] VITALS (8 sets, daily range): BP systolic 150–170; BP diastolic 75–90; PULSE 81–90; RESP 17–20; TEMP 36.3–37.1; O2SAT 98–99
[2021-08-23] MEDS: vancomycin HCL 1,000 MG in 0.9 % Sodium Chloride 250 ML 270 MG IV ×2 (03:26→15:21)
[2021-08-23] MEDS: Morphine Sulfate 2 MG/ML CARTRIDGE IVPUSH (05:29)
[2021-08-23] MEDS: Piperacillin Sodium/Tazobactam 3.375 GM in 0.9 % Sodium Chloride 50 ML IV ×4 (05:29→21:53)
[2021-08-23] MEDS: Heparin Sodium,Porcine 5,000 UNIT/ML VIAL 5000 UNIT SUBCUT ×2 (05:30→15:22)
[2021-08-23 07:08] LABS: Creatinine Clr Calc Pharmacy 111.1; Estimated Glomerular Filt Rate > 60
[2021-08-23 07:32] LABS: Glucose, Whole Blood 209 mg/dL (60-115)
[2021-08-23] MEDS: Insulin Glargine,Hum.rec.anlog 100 UNIT/ML 10 ML VIAL 16 UNIT SUBCUT ×2 (07:41→20:07)
[2021-08-23] MEDS: Gabapentin 600 MG TABLET PO ×3 (07:43→20:07)
[2021-08-23] MEDS: 0.9 % Sodium Chloride Flush 3 ML SYRINGE IVFLUSH ×3 (07:44→20:08)
[2021-08-23] MEDS: Insulin Lispro 100 UNIT/ML 3 ML VIAL SUBCUT ×4 (07:45→20:08)
--- NOTE | 2021-08-23 07:46 | HE.PHANOTE ---
PT cr decreased from 1.11 to 0.96, predicted AUC is 373, although his trough from yesterday was 15.1, next trough 08/24 @1200, may need to increase dose if trough drops significantly
--- NOTE | 2021-08-23 09:04 | HO.PM.IMPN ---
Subjective Subjective Date of Service: 08/23/21 Interval History: f/u on osteomylitis, BKA planned for tomorrow, he says pain is not well controlled Review of Systems [employer]EM[employer]ER no headache no dizziness CVS no chest pain, no palpable GI no nausea, no vomiting, no diarrhea Physical Exam Vital Signs: Vital Signs: Last Vital Signs Temp 97.3 F 08/23/21 07:56 Pulse 86 08/23/21 07:56 Resp 18 08/23/21 07:56 BP 165/88 H 08/23/21 07:56 Pulse Ox 98 08/23/21 07:56 BMI result Body Mass Index 25.1 Const: Other: Exam essentially unchanged General awake alert , no acute distress.? Neck no JVD. CVS? regular rate rhythm, Respiratory lungs clear to auscultation, no respiratory distress, no wheeze, no rhonchi. Gastrointestinal abdomen soft, nontender, bowel sounds audible. Extremities no edema, left foot stump without open wounds, no swelling, no tenderness, no redness over ankle joint, noted to have pus center of callus, plantar surface,with surrounding erythema.? Neuro nonfocal Skin pallor psych appropriate affect Objective Data Active Medications Acetaminophen (Acetaminophen 325 Mg Tablet) 650 mg PO Q6H PRN PRN Reason: Pain, Mild (Pain Scale 1-3) Dextrose (Dextrose 50 % 25 Gm/50 Ml Syringe) 25 gm IVPUSH Q15M PRN; Protocol PRN Reason: per Hypoglycemia Standing Ord. Gabapentin (Gabapentin 600 Mg Tablet) 600 mg PO TID [facility] Last Admin: 08/23/21 07:43 Dose: 600 mg Documented by: IGLESM Glucose (Glucose Gel 15 Gm Gel..Gram.) 15 gm PO Q15M PRN; Protocol PRN Reason: per Hypoglycemia Standing Ord. Heparin Sodium (Porcine) (Heparin Sodium,Porcine 5,000 Unit/Ml Vial) 5,000 unit SUBCUT Q8H [facility] Last Admin: 08/23/21 05:30 Dose: 5,000 unit Documented by: FLORIN Vancomycin HCl 1,000 mg/ (Sodium Chloride) 270 mls @ 270 mls/hr IV Q12H [facility] Last Infusion: 08/23/21 04:25 Dose: 0 mls/hr Documented by: FLORIN Piperacillin Sod/Tazobactam (Sod 3.375 gm/ Sodium Chloride) 50 mls @ 100 mls/hr IV Q6H [facility] Last Infusion: 08/23/21 06:26 Dose: 0 mls/hr Documented by: FLORIN Insulin Glargine (Insulin Glargine,Hum.Rec.Anlog 100 Unit/Ml 10 Ml Vial) 16 unit SUBCUT BID [facility] Last Admin: 08/23/21 07:41 Dose: 16 unit Documented by: VICKY Insulin Human Lispro (Insulin Lispro 100 Unit/Ml 3 Ml Vial) 0 unit SUBCUT QIDACHS [facility]; Protocol Last Admin: 08/23/21 07:45 Dose: 6 unit Documented by: VICKY Melatonin (Melatonin 3 Mg Tablet) 6 mg PO BEDTIME PRN PRN Reason: Insomnia Morphine Sulfate (Morphine Sulfate 2 Mg/Ml Cartridge) 2 mg IVPUSH Q6H PRN; Protocol PRN Reason: Pain, Severe (Pain Scale 7-10) Last Admin: 08/23/21 05:29 Dose: 2 mg Documented by: FLORIN Pharmacy Consult (Consult Rx Vancomycin Dosing) 1 each MISCELLANE DAILY PRN PRN Reason: Consult order Senna (Sennosides 8.6 Mg Tablet) 17.2 mg PO BEDTIME PRN PRN Reason: Constipation Sodium Chloride (0.9 % Sodium Chloride Flush 3 Ml Syringe) 3 ml IVFLUSH QSHIFT [facility] Last Admin: 08/23/21 07:44 Dose: 3 ml Documented by: VICKY Labs CBC & Chem 7: 08/21/21 07:06 08/23/21 05:59 Labs: Laboratory Results - last 24 hr 08/22/21 08/22/21 08/22/21 11:25 11:25 11:39 Estim Creat Clear Calc 96.1 Estimated GFR > 60 POC Glucose 296 H Vancomycin Trough 15.1 08/22/21 08/22/21 08/23/21 15:59 20:07 05:59 Estim Creat Clear Calc 111.1 Estimated GFR > 60 POC Glucose 280 H 250 H Vancomycin Trough 08/23/21 07:12 Estim Creat Clear Calc Estimated GFR POC Glucose 209 H Vancomycin Trough Assessment and Plan (1) Osteomyelitis: Status: Acute (2) Diabetes: Status: Acute Plan 36-year-old male with a past medical history of diabetes, diabetic neuropathy, history of diabetic foot infection/osteomyelitis status post left foot tarsometatarsal amputation, history of foot ulcer on the stump; substance abuse, anemia , recent admission to the hospital for left foot osteomyelitis/MRSA bacteremia, [facility] on 08/04/2021 interrupting the treatment presented to the hospital today with a chief complaint of increased left foot pain. Left diabetic foot ulcer/osteomyelitis, has not responded to Abx and so has elected to ampuation on Thursday 08/24.. Continue Vanco and Zosyn in the interim. Pain control anemia of chronic disease , patient asymptomatic, no chest pain, no palpitation, no lightheadedness or dizziness, hematocrit improved to 26.7, hemoglobin 8.7. follow CBC closely Diabetes mellitus uncontrolled blood sugars, blood sugars cont. Lantus, insulin sliding scale, diabetic diet,monitor fingerstick glucose, and adjust as needed. hemoglobin A1c 9.2 on 09/03/20? strongly recommend compliance with home medications. patient eats chips as snacks and drink Gatorade brought in by girlfriend therefore strongly recommend to avoid unhealthy snacks, follow blood sugar closely History of neuropathy: Continue home gabapentin DVT prophylaxis: [facility] Code status: Full code Quality Stroke Does the patient have a stroke diagnosis?: No VTE Prior VTE?: No VTE Risk Level:: Medical - moderate - high VTE Device Contraindication: Treatment Not Indicated VTE Drug Contraindication: N/A - Med Ordered
[2021-08-23] MEDS: Morphine Sulfate 2 MG/ML CARTRIDGE 3 MG IVPUSH ×3 (11:07→20:07)
[2021-08-23 11:08] LABS: Glucose, Whole Blood 266 mg/dL (60-115)
[2021-08-23 16:05] LABS: Glucose, Whole Blood 244 mg/dL (60-115)
[2021-08-23 19:45] LABS: Glucose, Whole Blood 263 mg/dL (60-115)
[2021-08-24] VITALS (15 sets, daily range): BP systolic 136–172; BP diastolic 57–97; PULSE 86–92; RESP 16–22; TEMP 36.3–37.4; O2SAT 94–100
[2021-08-24] MEDS: Morphine Sulfate 2 MG/ML CARTRIDGE 3 MG IVPUSH ×3 (00:18→08:43)
[2021-08-24] MEDS: vancomycin HCL 1,000 MG in 0.9 % Sodium Chloride 250 ML 270 MG IV ×2 (01:19→15:51)
[2021-08-24] MEDS: Piperacillin Sodium/Tazobactam 3.375 GM in 0.9 % Sodium Chloride 50 ML IV ×3 (03:58→21:07)
[2021-08-24 07:12] LABS: Glucose, Whole Blood 163 mg/dL (60-115)
[2021-08-24 07:36] LABS: Creatinine Clr Calc Pharmacy 97.8; Estimated Glomerular Filt Rate > 60
--- NOTE | 2021-08-24 07:54 | P.PNIM_ITS ---
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 Neck no JVD. CVS? regular rate rhythm, Respiratory lungs clear to auscultation, no respiratory distress, no wheeze, no rhonchi. Gastrointestinal abdomen soft, nontender, bowel sounds audible. Extremities no edema, left foot stump without open wounds, no swelling, no tenderness, no redness over ankle joint, noted to have pus center of callus, plantar surface,with surrounding erythema.? Neuro nonfocal Skin pallor psych appropriate affect Objective Data Active Medications Acetaminophen (Acetaminophen 325 Mg Tablet) 650 mg PO Q6H PRN PRN Reason: Pain, Mild (Pain Scale 1-3) Dextrose (Dextrose 50 % 25 Gm/50 Ml Syringe) 25 gm IVPUSH Q15M PRN; Protocol PRN Reason: per Hypoglycemia Standing Ord. Gabapentin (Gabapentin 600 Mg Tablet) 600 mg PO TID [facility] Last Admin: 08/23/21 20:07 Dose: 600 mg Documented by: GRETA Glucose (Glucose Gel 15 Gm Gel..Gram.) 15 gm PO Q15M PRN; Protocol PRN Reason: per Hypoglycemia Standing Ord. Heparin Sodium (Porcine) (Heparin Sodium,Porcine 5,000 Unit/Ml Vial) 5,000 unit SUBCUT Q8H [facility] Last Admin: 08/24/21 04:06 Dose: Not Given Documented by: GRETA Non-Admin Reason: surgery scheduled for later today Vancomycin HCl 1,000 mg/ (Sodium Chloride) 270 mls @ 270 mls/hr IV Q12H [facility] Last Infusion: 08/24/21 02:55 Dose: 0 mls/hr Documented by: GRETA Piperacillin Sod/Tazobactam (Sod 3.375 gm/ Sodium Chloride) 50 mls @ 100 mls/hr IV Q6H [facility] Last Infusion: 08/24/21 04:35 Dose: 0 mls/hr Documented by: GRETA Insulin Glargine (Insulin Glargine,Hum.Rec.Anlog 100 Unit/Ml 10 Ml Vial) 16 unit SUBCUT BID [facility] Last Admin: 08/23/21 20:07 Dose: 16 unit Documented by: GRETA Insulin Human Lispro (Insulin Lispro 100 Unit/Ml 3 Ml Vial) 0 unit SUBCUT QIDACHS [facility]; Protocol Last Admin: 08/24/21 07:27 Dose: Not Given Documented by: DOBROB Non-Admin Reason: NPO Melatonin (Melatonin 3 Mg Tablet) 6 mg PO BEDTIME PRN PRN Reason: Insomnia Morphine Sulfate (Morphine Sulfate 2 Mg/Ml Cartridge) 3 mg IVPUSH Q4H PRN; Protocol PRN Reason: Pain, Severe (Pain Scale 7-10) Last Admin: 08/24/21 04:06 Dose: 3 mg Documented by: GRETA Senna (Sennosides 8.6 Mg Tablet) 17.2 mg PO BEDTIME PRN PRN Reason: Constipation Sodium Chloride (0.9 % Sodium Chloride Flush 3 Ml Syringe) 3 ml IVFLUSH QSHIFT [facility] Last Admin: 08/23/21 20:08 Dose: 3 ml Documented by: GRETA Labs CBC & Chem 7: 08/21/21 07:06 08/24/21 06:55 Labs: Laboratory Results - last 24 hr 08/23/21 08/23/21 08/23/21 11:04 15:56 19:35 Estim Creat Clear Calc Estimated GFR POC Glucose 266 H 244 H 263 H 08/24/21 08/24/21 06:55 07:08 Estim Creat Clear Calc 97.8 Estimated GFR > 60 POC Glucose 163 H Assessment and Plan (1) Osteomyelitis: Status: Acute (2) Diabetes: Status: Acute Plan 36-year-old male with a past medical history of diabetes, diabetic neuropathy, history of diabetic foot infection/osteomyelitis status post left foot tarsometatarsal amputation, history of foot ulcer on the stump; substance abuse, anemia , recent admission to the hospital for left foot osteomyelitis/MRSA bacteremia, [facility] on 08/04/2021 interrupting the treatment presented to the hospital today with a chief complaint of increased left foot pain. Left diabetic foot ulcer/osteomyelitis, has not responded to Abx and so has elected to ampuation today Thursday 08/24.. Continue Vanco and Zosyn in the interim. Pain control with morphine anemia of chronic disease , patient asymptomatic, no chest pain, no palpitation, no lightheadedness or dizziness, hematocrit improved to 26.7, hemoglobin 8.7. follow CBC closely Diabetes mellitus uncontrolled blood sugars, blood sugars cont. Lantus, insulin sliding scale, diabetic diet,monitor fingerstick glucose, and adjust as needed. hemoglobin A1c 9.2 on 09/03/20? strongly recommend compliance with home medications. patient eats chips as snacks and drink Gatorade brought in by girlfriend therefore strongly recommend to avoid unhealthy snacks, follow blood sugar closely History of neuropathy: Continue home gabapentin DVT prophylaxis: [facility] Code status: Full code Quality Stroke Does the patient have a stroke diagnosis?: No VTE Prior VTE?: No VTE Risk Level:: Medical - moderate - high VTE Device Contraindication: Treatment Not Indicated VTE Drug Contraindication: N/A - Med Ordered
[2021-08-24] MEDS: 0.9 % Sodium Chloride Flush 3 ML SYRINGE IVFLUSH (08:43)
[2021-08-24] MEDS: Gabapentin 600 MG TABLET PO ×3 (08:43→20:00)
--- NOTE | 2021-08-24 10:34 | PM.EVENT ---
Event Note Date of Service: 08/24/21 Event Note: Pt denies any complaints No events over the weekend Reviewed with him plan for a on the left for chronic osteomyelitis of the tarsal bones He understands the risks including but not limited to bleeding, infections, postop pain, poor healing, need for further surgeries, as well as the benefits and alternatives and he has given consent Patient on the schedule for BKA, left today
[2021-08-24 10:39] LABS: Glucose, Whole Blood 219 mg/dL (60-115)
--- NOTE | 2021-08-24 10:40 | HO.ANESPROP2 ---
[facility] Active Problems Active Problems: All Active Problems (Updated 08/17/21 @ 01:57 by Alex Otoole MD) Non-healing ulcer (Acute) Osteomyelitis (Acute) Foot abscess, left (Acute) Diabetic infection of left foot (Acute) Foot osteomyelitis, left (Acute) Osteomyelitis (Acute) S/P transmetatarsal amputation of foot (Acute) Osteomyelitis of ankle or foot, right, acute (Acute) Diabetes (Acute) Ulcer of left foot (Acute) Past Medical History Medical History Anemia Diabetes Foot abscess, left History of substance use Non-healing ulcer of right foot Osteomyelitis Family History Family History Mother Breast cancer CVD (cardiovascular disease) Diabetes Cancer Father Diabetes CVD (cardiovascular disease) Surgical History Surgical History History of appendectomy History of carpal tunnel surgery of left wrist History 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 History of Problems with Anesthesia: No Social History Social History Household Members: Friend(s) Housing: House Housing Other:: patient states his belongings are in his truck Do you presently have visiting nurse or other home services: No Unable to assess alcohol history related to: Unknown Alcohol intake: former Patient Tobacco Use Status: Current everyday Tobacco user Tobacco use type: Cigarette Cigarette Packs Per Day: 0.5 Cigarettes Per Day: 10 Years Smoked: 30 Second Hand Smoke Exposure: No Substance Use Type: Heroin and IV Drugs service: No Current occupational status: unemployed Meds Allergies Allergy/AdvReac Type Severity Reaction Status Date / Time No Known Allergies Allergy Verified 08/04/21 21:26 [No Known Allergies*] Active Medications: Current Medications Acetaminophen (Acetaminophen 325 Mg Tablet) 650 mg PO Q6H PRN PRN Reason: Pain, Mild (Pain Scale 1-3) Dextrose (Dextrose 50 % 25 Gm/50 Ml Syringe) 25 gm IVPUSH Q15M PRN; Protocol PRN Reason: per Hypoglycemia Standing Ord. Gabapentin (Gabapentin 600 Mg Tablet) 600 mg PO TID DAYNA Last Admin: 08/24/21 08:43 Dose: 600 mg Documented by: Glucose (Glucose Gel 15 Gm Gel..Gram.) 15 gm PO Q15M PRN; Protocol PRN Reason: per Hypoglycemia Standing Ord. Heparin Sodium (Porcine) (Heparin Sodium,Porcine 5,000 Unit/Ml Vial) 5,000 unit SUBCUT Q8H [facility] Last Admin: 08/24/21 04:06 Dose: Not Given Documented by: Vancomycin HCl 1,000 mg/ (Sodium Chloride) 270 mls @ 270 mls/hr IV Q12H [facility] Last Infusion: 08/24/21 02:55 Dose: Infused Documented by: Piperacillin Sod/Tazobactam (Sod 3.375 gm/ Sodium Chloride) 50 mls @ 100 mls/hr IV Q6H [facility] Last Infusion: 08/24/21 04:35 Dose: Infused Documented by: Cefazolin Sodium/Dextrose (Ancef) 2 gm in 50 mls @ 100 mls/hr IV PREOP ONE Stop: 08/24/21 10:55 Insulin Glargine (Insulin Glargine,Hum.Rec.Anlog 100 Unit/Ml 10 Ml Vial) 16 unit SUBCUT BID [facility] Last Admin: 08/24/21 09:42 Dose: Not Given Documented by: Insulin Human Lispro (Insulin Lispro 100 Unit/Ml 3 Ml Vial) 0 unit SUBCUT QIDACHS [facility]; Protocol Last Admin: 08/24/21 07:27 Dose: Not Given Documented by: Melatonin (Melatonin 3 Mg Tablet) 6 mg PO BEDTIME PRN PRN Reason: Insomnia Morphine Sulfate (Morphine Sulfate 2 Mg/Ml Cartridge) 3 mg IVPUSH Q4H PRN; Protocol PRN Reason: Pain, Severe (Pain Scale 7-10) Last Admin: 08/24/21 08:43 Dose: 3 mg Documented by: Senna (Sennosides 8.6 Mg Tablet) 17.2 mg PO BEDTIME PRN PRN Reason: Constipation Sodium Chloride (0.9 % Sodium Chloride Flush 3 Ml Syringe) 3 ml IVFLUSH QSHIFT [facility] Last Admin: 08/24/21 08:43 Dose: 3 ml Documented by: Home Medications Medication Instructions Recorded Confirmed Last Taken Type ferrous sulfate 325 mg (65 mg 325 mg PO DAILY 05/06/20 08/17/21 08/04/21 08:00 History iron) tablet gabapentin 600 mg tablet 600 mg PO TID 05/06/20 08/17/21 08/04/21 14:00 History insulin lispro 100 unit/mL 1 sliding scale dose SUBCUT QID 05/06/20 08/17/21 08/04/21 13:00 History subcutaneous solution (Admelog U-100 Insulin lispro) metformin 500 mg tablet 1,000 mg PO BID 05/06/20 08/17/21 08/04/21 08:00 History insulin glargine 100 unit/mL (3 20 unit SUBCUT BID 08/04/21 08/17/21 08/04/21 08:00 History mL) subcutaneous pen (Lantus Solostar U-100 Insulin) pen needle, diabetic 31 gauge x 08/17/21 08/17/21 Unknown History 09/23 (BD Ultra-Fine Mini Pen Needle) Exam Exam Date and Time: August 24, 2021 1040 Height,Weight and Vital Signs: Height 5 ft 11 in Weight 81.647 kg Last Vital Signs Temp 97.9 F 08/24/21 10:22 Pulse 90 08/24/21 10:22 Resp 18 08/24/21 10:22 BP 172/95 H 08/24/21 10:22 Pulse Ox 98 08/24/21 10:22 Pertinent Lab Results Pertinent Lab Results: Laboratory Tests 08/17/21 08/17/21 08/17/21 00:23 00:23 00:23 WBC 10.1 RBC 3.37 L Hgb 8.7 L Hct 27.1 L MCV 80.4 MCH 25.8 L MCHC 32.1 RDW 13.4 Plt Count 421 H MPV 9.8 Immature Gran % (Auto) 0.2 Neut % (Auto) 84.1 H Lymph % (Auto) 8.6 L [place] % (Auto) 5.7 Eos % (Auto) 1.0 Baso % (Auto) 0.4 Lymph # (Auto) 0.9 L [place] # (Auto) 0.6 Eos # (Auto) 0.1 Baso # (Auto) 0.0 Abs Immat Gran (auto) 0.02 Absolute Neuts (auto) 8.5 H Absolute Nucleated RBC 0.000 Nucleated RBC % (auto) 0.0 PT 16.2 H INR 1.4 H Sodium Potassium Chloride Carbon Dioxide Anion Gap BUN Creatinine Estim Creat Clear Calc Estimated GFR POC Glucose Random Glucose Lactic Acid 3.1 H* Lactic Acid F/U @ 2Hr Calcium Total Bilirubin AST ALT Alkaline Phosphatase Total Protein Albumin Specimen Comment Vancomycin Trough COVID-19 (MARY KATE) COVID-19 [employer] Blood Type Antibody Screen 08/17/21 08/17/21 08/17/21 00:23 00:42 03:11 WBC RBC Hgb Hct MCV MCH MCHC RDW Plt Count MPV Immature Gran % (Auto) Neut % (Auto) Lymph % (Auto) [place] % (Auto) Eos % (Auto) Baso % (Auto) Lymph # (Auto) [place] # (Auto) Eos # (Auto) Baso # (Auto) Abs Immat Gran (auto) Absolute Neuts (auto) Absolute Nucleated RBC Nucleated RBC % (auto) PT INR Sodium 132 L Potassium 5.0 Chloride 93 L Carbon Dioxide 29 Anion Gap 15 BUN 21 H D Creatinine 1.27 Estim Creat Clear Calc 83.9 Estimated GFR > 60 POC Glucose Random Glucose 398 H* Lactic Acid Lactic Acid F/U @ 2Hr 0.6 Calcium 9.2 Total Bilirubin 0.5 AST 29 D ALT 13 Alkaline Phosphatase 100 Total Protein 7.5 Albumin 3.0 L Specimen Comment Vancomycin Trough COVID-19 (MARY KATE) Negative [employer] See Note Blood Type Antibody Screen 08/17/21 08/17/21 08/17/21 03:11 03:11 07:32 WBC 8.6 RBC 2.96 L Hgb 7.7 L Hct 23.8 L MCV 80.4 MCH 26.0 L MCHC 32.4 RDW 13.3 Plt Count 325 MPV 9.1 L Immature Gran % (Auto) 0.2 Neut % (Auto) 81.2 H Lymph % (Auto) 11.5 L [place] % (Auto) 5.9 Eos % (Auto) 1.0 Baso % (Auto) 0.2 Lymph # (Auto) 1.0 L [place] # (Auto) 0.5 Eos # (Auto) 0.1 Baso # (Auto) 0.0 Abs Immat Gran (auto) 0.02 Absolute Neuts (auto) 7.0 Absolute Nucleated RBC 0.000 Nucleated RBC % (auto) 0.0 PT INR Sodium 132 L Potassium 5.3 H Chloride 96 Carbon Dioxide 27 Anion Gap 14 BUN 20 H Creatinine 1.17 Estim Creat Clear Calc 91.1 Estimated GFR > 60 POC Glucose 316 H Random Glucose 375 H* Lactic Acid Lactic Acid F/U @ 2Hr Calcium 8.4 D Total Bilirubin AST ALT Alkaline Phosphatase Total Protein Albumin Specimen Comment Vancomycin Trough COVID-19 (MARY KATE) COVID-[employer] Blood Type Antibody Screen 08/17/21 08/17/21 08/17/21 13:07 16:17 20:34 WBC RBC Hgb Hct MCV MCH MCHC RDW Plt Count MPV Immature Gran % (Auto) Neut % (Auto) Lymph % (Auto) [place] % (Auto) Eos % (Auto) Baso % (Auto) Lymph # (Auto) [place] # (Auto) Eos # (Auto) Baso # (Auto) Abs Immat Gran (auto) Absolute Neuts (auto) Absolute Nucleated RBC Nucleated RBC % (auto) PT INR Sodium Potassium Chloride Carbon Dioxide Anion Gap BUN Creatinine Estim Creat Clear Calc Estimated GFR POC Glucose 243 H 336 H 223 H Random Glucose Lactic Acid Lactic Acid F/U @ 2Hr Calcium Total Bilirubin AST ALT Alkaline Phosphatase Total Protein Albumin Specimen Comment Vancomycin Trough COVID-19 (MARY KATE) varinode Blood Type Antibody Screen 08/18/21 08/18/21 08/18/21 07:55 12:09 12:09 WBC RBC Hgb Hct MCV MCH MCHC RDW Plt Count MPV Immature Gran % (Auto) Neut % (Auto) Lymph % (Auto) [place] % (Auto) Eos % (Auto) Baso % (Auto) Lymph # (Auto) [place] # (Auto) Eos # (Auto) Baso # (Auto) Abs Immat Gran (auto) Absolute Neuts (auto) Absolute Nucleated RBC Nucleated RBC % (auto) PT INR Sodium Potassium Chloride Carbon Dioxide Anion Gap BUN Creatinine 1.04 Estim Creat Clear Calc 102.5 Estimated GFR > 60 POC Glucose 331 H Random Glucose Lactic Acid Lactic Acid F/U @ 2Hr Calcium Total Bilirubin AST ALT Alkaline Phosphatase Total Protein Albumin Specimen Comment Vancomycin Trough 10.1 COVID-19 (MARY KATE) [employer] Blood Type Antibody Screen 08/18/21 08/18/21 08/18/21 13:01 17:46 21:09 WBC RBC Hgb Hct MCV MCH MCHC RDW Plt Count MPV Immature Gran % (Auto) Neut % (Auto) Lymph % (Auto) [place] % (Auto) Eos % (Auto) Baso % (Auto) Lymph # (Auto) [place] # (Auto) Eos # (Auto) Baso # (Auto) Abs Immat Gran (auto) Absolute Neuts (auto) Absolute Nucleated RBC Nucleated RBC % (auto) PT INR Sodium Potassium Chloride Carbon Dioxide Anion Gap BUN Creatinine Estim Creat Clear Calc Estimated GFR POC Glucose 356 H* 233 H 296 H Random Glucose Lactic Acid Lactic Acid F/U @ 2Hr Calcium Total Bilirubin AST ALT Alkaline Phosphatase Total Protein Albumin Specimen Comment Vancomycin Trough COVID-19 (MARY KATE) [employer] Blood Type Antibody Screen 08/19/21 08/19/21 08/19/21 06:58 06:58 07:50 WBC RBC Hgb 8.7 L Hct 26.7 L MCV MCH MCHC RDW Plt Count MPV Immature Gran % (Auto) Neut % (Auto) Lymph % (Auto) [place] % (Auto) Eos % (Auto) Baso % (Auto) Lymph # (Auto) [place] # (Auto) Eos # (Auto) Baso # (Auto) Abs Immat Gran (auto) Absolute Neuts (auto) Absolute Nucleated RBC Nucleated RBC % (auto) PT INR Sodium 136 Potassium 5.4 H Chloride 96 Carbon Dioxide 32 H Anion Gap 13 BUN 14 Creatinine 0.95 Estim Creat Clear Calc 112.2 Estimated GFR > 60 POC Glucose 184 H Random Glucose 185 H D Lactic Acid Lactic Acid F/U @ 2Hr Calcium 9.4 D Total Bilirubin AST ALT Alkaline Phosphatase Total Protein Albumin Specimen Comment Vancomycin Trough COVID-19 (MARY KATE) varinode Blood Type Antibody Screen 08/19/21 08/19/21 08/19/21 11:58 11:58 13:11 WBC RBC Hgb Hct MCV MCH MCHC RDW Plt Count MPV Immature Gran % (Auto) Neut % (Auto) Lymph % (Auto) [place] % (Auto) Eos % (Auto) Baso % (Auto) Lymph # (Auto) [place] # (Auto) Eos # (Auto) Baso # (Auto) Abs Immat Gran (auto) Absolute Neuts (auto) Absolute Nucleated RBC Nucleated RBC % (auto) PT INR Sodium Potassium Chloride Carbon Dioxide Anion Gap BUN Creatinine Estim Creat Clear Calc Estimated GFR POC Glucose 155 H Random Glucose Lactic Acid Lactic Acid F/U @ 2Hr Calcium Total Bilirubin AST ALT Alkaline Phosphatase Total Protein Albumin Specimen Comment DELAY Vancomycin Trough 14.1 COVID-19 (MARY KATE) varinode Blood Type Antibody Screen 08/19/21 08/19/2108/20/22 17:36 21:06 07:40 WBC RBC Hgb Hct MCV MCH MCHC RDW Plt Count MPV Immature Gran % (Auto) Neut % (Auto) Lymph % (Auto) [place] % (Auto) Eos % (Auto) Baso % (Auto) Lymph # (Auto) [place] # (Auto) Eos # (Auto) Baso # (Auto) Abs Immat Gran (auto) Absolute Neuts (auto) Absolute Nucleated RBC Nucleated RBC % (auto) PT INR Sodium Potassium Chloride Carbon Dioxide Anion Gap BUN Creatinine Estim Creat Clear Calc Estimated GFR POC Glucose 242 H 305 H 414 H* Random Glucose Lactic Acid Lactic Acid F/U @ 2Hr Calcium Total Bilirubin AST ALT Alkaline Phosphatase Total Protein Albumin Specimen Comment Vancomycin Trough COVID-19 (MARY KATE) [employer] [employer] Blood Type Antibody Screen 08/20/21 08/20/21 08/20/21 11:59 11:59 12:26 WBC RBC Hgb Hct MCV MCH MCHC RDW Plt Count MPV Immature Gran % (Auto) Neut % (Auto) Lymph % (Auto) [place] % (Auto) Eos % (Auto) Baso % (Auto) Lymph # (Auto) [place] # (Auto) Eos # (Auto) Baso # (Auto) Abs Immat Gran (auto) Absolute Neuts (auto) Absolute Nucleated RBC Nucleated RBC % (auto) PT INR Sodium Potassium Chloride Carbon Dioxide Anion Gap BUN Creatinine 1.17 Estim Creat Clear Calc 91.1 Estimated GFR > 60 POC Glucose 232 H Random Glucose Lactic Acid Lactic Acid F/U @ 2Hr Calcium Total Bilirubin AST ALT Alkaline Phosphatase Total Protein Albumin Specimen Comment Vancomycin Trough 16.9 COVID-19 (MARY KATE) [employer] Blood Type Antibody Screen 08/20/21 08/20/21 08/21/21 16:41 21:52 07:06 WBC 5.1 RBC 3.27 L Hgb 8.3 L Hct 26.0 L MCV 79.5 L MCH 25.4 L MCHC 31.9 RDW 13.7 Plt Count 324 MPV 9.1 L Immature Gran % (Auto) Neut % (Auto) Lymph % (Auto) [place] % (Auto) Eos % (Auto) Baso % (Auto) Lymph # (Auto) [place] # (Auto) Eos # (Auto) Baso # (Auto) Abs Immat Gran (auto) Absolute Neuts (auto) Absolute Nucleated RBC 0.000 Nucleated RBC % (auto) 0.0 PT INR Sodium Potassium Chloride Carbon Dioxide Anion Gap BUN Creatinine Estim Creat Clear Calc Estimated GFR POC Glucose 233 H 353 H* Random Glucose Lactic Acid Lactic Acid F/U @ 2Hr Calcium Total Bilirubin AST ALT Alkaline Phosphatase Total Protein Albumin Specimen Comment Vancomycin Trough COVID-19 (MARY KATE) COVID-19 [employer] Blood Type Antibody Screen 08/21/21 08/21/21 08/21/21 07:06 07:09 09:06 WBC RBC Hgb Hct MCV MCH MCHC RDW Plt Count MPV Immature Gran % (Auto) Neut % (Auto) Lymph % (Auto) [place] % (Auto) Eos % (Auto) Baso % (Auto) Lymph # (Auto) [place] # (Auto) Eos # (Auto) Baso # (Auto) Abs Immat Gran (auto) Absolute Neuts (auto) Absolute Nucleated RBC Nucleated RBC % (auto) PT INR Sodium 134 L Potassium 5.0 Chloride 94 L Carbon Dioxide 35 H Anion Gap 10 L BUN 15 Creatinine 1.19 Estim Creat Clear Calc 89.6 Estimated GFR > 60 POC Glucose 277 H Random Glucose 293 H D Lactic Acid Lactic Acid F/U @ 2Hr Calcium 9.2 Total Bilirubin AST ALT Alkaline Phosphatase Total Protein Albumin Specimen Comment Vancomycin Trough COVID-19 (MARY KATE) [employer] The[employer] Blood Type O Positive Antibody Screen NEGATIVE 08/21/21 08/21/21 08/21/21 09:39 12:26 12:26 WBC RBC Hgb Hct MCV MCH MCHC RDW Plt Count MPV Immature Gran % (Auto) Neut % (Auto) Lymph % (Auto) [place] % (Auto) Eos % (Auto) Baso % (Auto) Lymph # (Auto) [place] # (Auto) Eos # (Auto) Baso # (Auto) Abs Immat Gran (auto) Absolute Neuts (auto) Absolute Nucleated RBC Nucleated RBC % (auto) PT INR Sodium Potassium Chloride Carbon Dioxide Anion Gap BUN Creatinine 1.13 Estim Creat Clear Calc 94.4 Estimated GFR > 60 POC Glucose 276 H Random Glucose Lactic Acid Lactic Acid F/U @ 2Hr Calcium Total Bilirubin AST ALT Alkaline Phosphatase Total Protein Albumin Specimen Comment Vancomycin Trough 13.9 COVID-19 (MARY KATE) [employer] Blood Type Antibody Screen 08/21/21 08/21/21 08/22/21 16:26 20:12 07:32 WBC RBC Hgb Hct MCV MCH MCHC RDW Plt Count MPV Immature Gran % (Auto) Neut % (Auto) Lymph % (Auto) [place] % (Auto) Eos % (Auto) Baso % (Auto) Lymph # (Auto) [place] # (Auto) Eos # (Auto) Baso # (Auto) Abs Immat Gran (auto) Absolute Neuts (auto) Absolute Nucleated RBC Nucleated RBC % (auto) PT INR Sodium Potassium Chloride Carbon Dioxide Anion Gap BUN Creatinine Estim Creat Clear Calc Estimated GFR POC Glucose 357 H* 265 H 220 H Random Glucose Lactic Acid Lactic Acid F/U @ 2Hr Calcium Total Bilirubin AST ALT Alkaline Phosphatase Total Protein Albumin Specimen Comment Vancomycin Trough COVID-19 (MARY KATE) [employer] [employer] Blood Type Antibody Screen 08/22/21 08/22/21 08/22/21 11:25 11:25 11:39 WBC RBC Hgb Hct MCV MCH MCHC RDW Plt Count MPV Immature Gran % (Auto) Neut % (Auto) Lymph % (Auto) [place] % (Auto) Eos % (Auto) Baso % (Auto) Lymph # (Auto) [place] # (Auto) Eos # (Auto) Baso # (Auto) Abs Immat Gran (auto) Absolute Neuts (auto) Absolute Nucleated RBC Nucleated RBC % (auto) PT INR Sodium Potassium Chloride Carbon Dioxide Anion Gap BUN Creatinine 1.11 Estim Creat Clear Calc 96.1 Estimated GFR > 60 POC Glucose 296 H Random Glucose Lactic Acid Lactic Acid F/U @ 2Hr Calcium Total Bilirubin AST ALT Alkaline Phosphatase Total Protein Albumin Specimen Comment Vancomycin Trough 15.1 COVID-19 (MARY KATE) [employer] Blood Type Antibody Screen 08/22/21 08/22/21 08/23/21 15:59 20:07 05:59 WBC RBC Hgb Hct MCV MCH MCHC RDW Plt Count MPV Immature Gran % (Auto) Neut % (Auto) Lymph % (Auto) [place] % (Auto) Eos % (Auto) Baso % (Auto) Lymph # (Auto) [place] # (Auto) Eos # (Auto) Baso # (Auto) Abs Immat Gran (auto) Absolute Neuts (auto) Absolute Nucleated RBC Nucleated RBC % (auto) PT INR Sodium Potassium Chloride Carbon Dioxide Anion Gap BUN Creatinine 0.96 Estim Creat Clear Calc 111.1 Estimated GFR > 60 POC Glucose 280 H 250 H Random Glucose Lactic Acid Lactic Acid F/U @ 2Hr Calcium Total Bilirubin AST ALT Alkaline Phosphatase Total Protein Albumin Specimen Comment Vancomycin Trough COVID-19 (MARY KATE) [employer] [employer] Blood Type Antibody Screen 08/23/21 08/23/21 08/23/21 07:12 11:04 15:56 WBC RBC Hgb Hct MCV MCH MCHC RDW Plt Count MPV Immature Gran % (Auto) Neut % (Auto) Lymph % (Auto) [place] % (Auto) Eos % (Auto) Baso % (Auto) Lymph # (Auto) [place] # (Auto) Eos # (Auto) Baso # (Auto) Abs Immat Gran (auto) Absolute Neuts (auto) Absolute Nucleated RBC Nucleated RBC % (auto) PT INR Sodium Potassium Chloride Carbon Dioxide Anion Gap BUN Creatinine Estim Creat Clear Calc Estimated GFR POC Glucose 209 H 266 H 244 H Random Glucose Lactic Acid Lactic Acid F/U @ 2Hr Calcium Total Bilirubin AST ALT Alkaline Phosphatase Total Protein Albumin Specimen Comment Vancomycin Trough COVID-19 (MARY KATE) varinode Blood Type Antibody Screen 08/23/21 08/24/21 08/24/21 19:35 06:55 07:08 WBC RBC Hgb Hct MCV MCH MCHC RDW Plt Count MPV Immature Gran % (Auto) Neut % (Auto) Lymph % (Auto) [place] % (Auto) Eos % (Auto) Baso % (Auto) Lymph # (Auto) [place] # (Auto) Eos # (Auto) Baso # (Auto) Abs Immat Gran (auto) Absolute Neuts (auto) Absolute Nucleated RBC Nucleated RBC % (auto) PT INR Sodium Potassium Chloride Carbon Dioxide Anion Gap BUN Creatinine 1.09 Estim Creat Clear Calc 97.8 Estimated GFR > 60 POC Glucose 263 H 163 H Random Glucose Lactic Acid Lactic Acid F/U @ 2Hr Calcium Total Bilirubin AST ALT Alkaline Phosphatase Total Protein Albumin Specimen Comment Vancomycin Trough COVID-19 (MARY KATE) [employer] Blood Type Antibody Screen 08/24/21 10:36 WBC RBC Hgb Hct MCV MCH MCHC RDW Plt Count MPV Immature Gran % (Auto) Neut % (Auto) Lymph % (Auto) [place] % (Auto) Eos % (Auto) Baso % (Auto) Lymph # (Auto) [place] # (Auto) Eos # (Auto) Baso # (Auto) Abs Immat Gran (auto) Absolute Neuts (auto) Absolute Nucleated RBC Nucleated RBC % (auto) PT INR Sodium Potassium Chloride Carbon Dioxide Anion Gap BUN Creatinine Estim Creat Clear Calc Estimated GFR POC Glucose 219 H Random Glucose Lactic Acid Lactic Acid F/U @ 2Hr Calcium Total Bilirubin AST ALT Alkaline Phosphatase Total Protein Albumin Specimen Comment Vancomycin Trough COVID-19 (MARY KATE) COVID-19 Clin Com Blood Type Antibody Screen Airway Mallampati Class: I (Edentulous) TM Dist: >3cm Neck ROM: Full Loose/Missing/Broken Teeth: Yes, Upper and Lower Heart: RRR Lungs: CTA Assessment and Plan Final Anesthetic Review History of Problems with Anesthesia: No NPO: Yes ASA Class: III Final Preanesthetic Review: Meds/Allgs Chart Reviewed, Consent Obtained/Reviewed and Anes Risks/Benef Reviewed Patient Risk: Intermediate Procedure Risk: Low Anesthetic Plan Anesthetic Plan: GA Disposition: Standard PACU
--- NOTE | 2021-08-24 13:12 | W.PM.OPN ---
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 He has had multiple admissions for pain and had initially wanted to treat this with IV antibiotics. She was readmitted last week and he eventually decided that he wanted to proceed with BKA. Understood the technique of the procedure. He was aware of the risks, benefits, and alternatives He was brought to the operating room and placed supine on table under general anesthesia via laryngeal mask airway. The left leg was prepped and draped in the usual sterile fashion. A surgical time-out was done The patient was receiving scheduled IV antibiotics . I chose my level of anterior transverse incision on the lower leg about 12 cm distal to the tibial tubercle. I marked the looks good to know incision on both sides to go distally for about 15 cm. The posterior 1st incision would be connected on both sides at this level as wel.l I made my incision using a blade 10 and this carried down with electrocautery through the full-thickness of the skin and subcutaneous fat all the way down to the tibia. I dissected the tibia through the periosteum to define my point of transection just proximal to the skin incision. I then proceeded to then divide the fascia of the anterior compartment. At this time, I turned the tourniquet on at the level of the proximal thigh for good hemostasis. I divided the muscles of the anterior compartment with electrocautery until was able to expose and visualize the anterior tibial pediclel and combining nerve. I then proceeded to apply clamps proximal distal and divided this pedicle with scissors after ligating both proximal distal with Dexon 2-0 ties. I proceeded to then by the surrounding fibers at the anterior compartment using electrocautery. I reached the interosseous membrane and divided this. This allowed entrance into the posterior aspect of the tibia and I was able to circumferentially dissect all the muscle surrounding the tibia. Once this was achieved, I therefore proceeded to use the bone saw to divide the tibia with the bevel facing slightly anteriorly . I continued to divide the muscles posterior to the tibia this allowed me visualization of the fibula. I dissected the fibula with electrocautery and divided this with the bone saw as well just proximal to the level of the amputation of the tibia. After dividing the fibula, I as able to visualize eventually the posterior tibial pedicle and this was and ligated with Dexon 2-0 ties. I continued to divide the muscle fibers on the medial aspect and this allowed me to further divide a more posterior pedicle which probably was the deep peroneal. This was ligated and divided with scissors. With the fibula and the the tibia both divided, this allowed me to continue to divide the muscles posteriorly until I was able to visualize and identify the gastrocnemius. I proceeded the develop gastrocnemius flap and proceeded to separate this from the rest of the more anteriorly located muscles. I defined this and transected this all the way to the distal margins as described above. I used electrocautery to completely separate the of the muscle from the gastrocnemius flap. The specimen consisting of the divided tibia, fibula and accompanying muscle all the way to the foot was therefore completely and sent for pathology At this point, I proceeded to then turn off the tourniquet and examined for hemostasis. Tourniquet time was about 47 minutes. There were some small vessels that were bleeding which we had to ligate with Dexon 3-0 ties. Other than that, we e had good hemostasis of the major pedicles. We copiously irrigated. I then proceeded to position the flap to cover the rest of the stump. we had some excess muscle on the gastrocnemius side as well as some skin which had to trimmed to allow as to those without excess skin nor any dog ear. I reapposed the fascial layer initially with Dexon 3-0 sutures. I then did the deep subdermal layer closure of the entire incision using Dexon 3-0 sutures as well. I proceeded to close the skin with skin michelle . The muscle flap appeared viable with good blood supply. I wrapped the stump with fluffy dressings as well as a Kerlix roll and an Mook bandage . The procedure was then completed. The patient tolerated procedure well. There were no complications noted. Initial and final counts of sponges and instruments were correct. Estimated blood loss was about 200 cc The patient was extubated without difficulty and transferred to the recovery room with stable vital signs.
[2021-08-24] MEDS: HYDROmorphone HCl 0.5 MG/0.5 ML SYRINGE 0.25 MG IVPUSH ×4 (13:15→13:30)
--- NOTE | 2021-08-24 13:15 | P.BOP_ITS ---
Brief Operative Note Date of Service: 08/24/21 <Teresa Davis PA-C - Last Filed: 08/24/21 14:58> Pre-op diagnosis: osteomyelitis, left foot <Teresa Davis PA-C - Last Filed: 08/24/21 14:58> Post-op diagnosis: same <Teresa Davis PA-C - Last Filed: 08/24/21 14:58> Procedure: left BKA <Teresa Davis PA-C - Last Filed: 08/24/21 14:58> Surgeon: YANA THOMAS MD <Teresa Davis PA-C - Last Filed: 08/24/21 14:58> Anesthesia: GLMA <Teresa Davis PA-C - Last Filed: 08/24/21 14:58> Was an Traffic Monitor Specialist used for this Procedure?: No <Teresa Davis PA-C - Last Filed: 08/24/21 14:58> No <Yana Thomas MD - Last Filed: 08/24/21 16:48> Traffic Monitor Specialist: Teresa Davis <Teresa Davis PA-C - Last Filed: 08/24/21 14:58> Estimated blood loss (mL): 50 <Teresa Davis PA-C - Last Filed: 08/24/21 14:58> Tourniquet time (min): 47 <Teresa Davis PA-C - Last Filed: 08/24/21 14:58> Pathology: other (LEFT FOOT) <CAMDEN Chowdhury Last Filed: 08/24/21 14:58> Condition: stable <CAMDEN Chowdhury Last Filed: 08/24/21 14:58> Disposition: PACU <CAMDEN Chowdhury Last Filed: 08/24/21 14:58>
[2021-08-24] MEDS: fentaNYL citrate/PF 100 MCG/2 ML VIAL 50 MCG IVPUSH ×4 (13:35→14:00)
[2021-08-24] MEDS: Morphine Sulfate 4 MG/ML CARTRIDGE IVPUSH ×2 (15:50→19:57)
--- NOTE | 2021-08-24 16:48 | PM.EVENT ---
Event Note Date of Service: 08/24/21 Event Note: Seen postop He underwent BKA of the left earlier today Complaints of pain on the amputation site Otherwise has been stable postop Dressings dry without any evidence of any bleeding Pain management Keep leg elevated on pillows
[2021-08-24 16:54] LABS: Glucose, Whole Blood 352 mg/dL (60-115)
[2021-08-24] MEDS: Insulin Lispro 100 UNIT/ML 3 ML VIAL SUBCUT ×2 (17:06→21:06)
--- NOTE | 2021-08-24 17:47 | HE.PHANOTE ---
Vancomycin trough was never drawn 08/24 @ 1200 prior to dose. Will order a new trough to be drawn prior to next dose at 08/25 @ 0000
[2021-08-24] MEDS: oxyCODONE HCl Immed Release 5 MG TABLET 10 MG PO ×2 (17:48→22:18)
[2021-08-24 20:57] LABS: Glucose, Whole Blood 328 mg/dL (60-115)
[2021-08-24] MEDS: Insulin Glargine,Hum.rec.anlog 100 UNIT/ML 10 ML VIAL 16 UNIT SUBCUT (21:07)
[2021-08-24] MEDS: Melatonin 3 MG TABLET 6 MG PO (21:11)
--- NOTE | 2021-08-24 22:44 | PC.NURSE ---
Assumed care of pt at 1900. Pt is comfort measures only. Pt was repositioned and given ativan 0.5 mg iv for increased restlessness and resp rate. Went in to check on pt at 2019 and found her with no respirations, no palpable or audible pulse and no Bp. Dr Pulido (hospitalist notified and came to check pt. Pt pronounced at 2244.
[2021-08-25] VITALS (7 sets, daily range): BP systolic 158–174; BP diastolic 86–91; PULSE 92–99; RESP 16–18; TEMP 36.9–37.9; O2SAT 97–100
[2021-08-25 00:40] LABS: Vancomycin Trough 15.2 mcg/mL (10.0-20.0)
[2021-08-25] MEDS: Morphine Sulfate 4 MG/ML CARTRIDGE IVPUSH ×5 (00:41→21:35)
[2021-08-25] MEDS: oxyCODONE HCl Immed Release 5 MG TABLET 10 MG PO ×4 (03:01→18:11)
[2021-08-25] MEDS: 0.9 % Sodium Chloride Flush 3 ML SYRINGE IVFLUSH ×2 (03:02→08:19)
[2021-08-25] MEDS: vancomycin HCL 1,000 MG in 0.9 % Sodium Chloride 250 ML 270 MG IV ×2 (03:03→13:42)
[2021-08-25] MEDS: Piperacillin Sodium/Tazobactam 3.375 GM in 0.9 % Sodium Chloride 50 ML IV ×4 (04:36→21:39)
--- NOTE | 2021-08-25 04:47 | PC.NURSE ---
Addendum entered by Dominique Lowe RN 08/25/21 04:50: Alternating morphine and oxycodone. Pt has been awake all night watching TV and now is starting to fall asleep. He did receive melatonin to help him sleep. Original Note: Pt S/P BKA on left 08/24. Mook wrap over dsg is D&I. Pt has complained of painand asked for pain medicine q2hr.
[2021-08-25 06:32] LABS: MANUAL DIFF FLAG NO
[2021-08-25 06:46] LABS: Basophils Percent Auto 0.5 % (0-2); Eosinophils Absolute Auto 0.1 X10*3/uL (0.0-0.4); Hematocrit 27.2 % (42.0-52.0); Hemoglobin 8.8 g/dl (14.0-18.0); Imm Gran Abs Auto 0.03 X10*3/uL (0.00-0.03); Imm Gran Pct Auto 0.4 % (0.0-0.4); Lymphocytes Absolute Auto 1.6 X10*3/uL (1.2-4.9); Lymphocytes Percent Auto 20.3 % (20-40); Mean Corpuscular HGB Conc 32.4 g/dl (31.0-36.0); Mean Corpuscular Hemoglobin 25.4 pg (27.0-33.0); Mean Corpuscular Volume 78.6 fL (80.0-98.0); Mean Platelet Volume 9.1 fL (9.4-12.4); Monocytes Absolute Auto 0.6 X10*3/uL (0.1-1.2); Monocytes Percent Auto 7.8 % (2-11); Neutrophils Absolute Auto 5.7 x10*3/uL (2.0-8.3); Platelet Count 322 X10*3/uL (160-400); Red Blood Count 3.46 X10*6/uL (4.60-5.80); Red Cell Distribution Width 14.3 % (11.0-16.0); White Blood Count 8.1 X10*3/uL (4.8-10.8)
[2021-08-25 07:06] LABS: Glucose, Whole Blood 222 mg/dL (60-115)
[2021-08-25 07:15] LABS: Creatinine Clr Calc Pharmacy 88.1; Estimated Glomerular Filt Rate > 60
[2021-08-25] MEDS: Gabapentin 600 MG TABLET PO ×3 (08:18→21:38)
[2021-08-25] MEDS: Insulin Glargine,Hum.rec.anlog 100 UNIT/ML 10 ML VIAL 16 UNIT SUBCUT (08:18)
[2021-08-25] MEDS: Insulin Lispro 100 UNIT/ML 3 ML VIAL SUBCUT ×4 (08:18→21:39)
--- NOTE | 2021-08-25 08:49 | HO.POSTANES ---
Post Anesthesia Evaluation Post Anesthesia Evaluation Vital Signs: Vital Signs Temp Pulse Resp BP Pulse Ox 08/25/21 07:12 99.5 F 98 16 174/86 H 100 08/25/21 05:03 98.4 F 94 18 171/91 H 97 08/25/21 03:51 98.6 F 92 18 159/90 H 97 Anesthesia: General Mental Status: Awake Pain Control: Satisfactory Nausea/Vomiting: None Hydration: Adequate Anesthesia-Related Issues: No Anes. Related Issues
--- NOTE | 2021-08-25 10:34 | P.PNGS_ITS ---
Subjective Subjective Date of Service: 08/25/21 <Teresa Davis PA-C - Last Filed: 08/25/21 10:38> 08/25/21 <Jose Manuel Randall MD - Last Filed: 08/25/21 10:40> Interval history: Had a difficulty night due to pain and was unable to sleep. A little better this morning but has burning pain at amputation site. OOB in chair this morning. Tolerating diet. <Teresa Davis PA-C - Last Filed: 08/25/21 10:38> Physical Exam Vital Signs: Vital Signs: Last Vital Signs Temp 99.5 F 08/25/21 07:12 Pulse 98 08/25/21 09:49 Resp 16 08/25/21 07:12 BP 174/86 H 08/25/21 09:49 Pulse Ox 100 08/25/21 09:49 BMI result Body Mass Index 25.1 <Teresa Davis PA-C - Last Filed: 08/25/21 10:38> Const: General: no acute distress and alert <Teresa Davis PA-C - Last Filed: 08/25/21 10:38> Orientation/consciousness: patient oriented x3 <Teresa Davis PA-C - Last Filed: 08/25/21 10:38> Resp: Effort & Inspection: normal respiratory effort <Teresa Davis PA-C - Last Filed: 08/25/21 10:38> Skin: General skin exam: no rashes or lesions noted <Teresa Davis PA-C - Last Filed: 08/25/21 10:38> Neuro: General: patient oriented x3 <Teresa Davis PA-C - Last Filed: 08/25/21 10:38> Extrem: Other: left BKA site dressing clean, vivi wrap in place. <CAMDEN Chowdhury Last Filed: 08/25/21 10:38> Objective Data Active Medications Acetaminophen (Acetaminophen 325 Mg Tablet) 650 mg PO Q6H PRN PRN Reason: Pain, Mild (Pain Scale 1-3) Dextrose (Dextrose 50 % 25 Gm/50 Ml Syringe) 25 gm IVPUSH Q15M PRN; Protocol PRN Reason: per Hypoglycemia Standing Ord. Gabapentin (Gabapentin 600 Mg Tablet) 600 mg PO TID [facility] Last Admin: 08/25/21 08:18 Dose: 600 mg Documented by: MAUREEN Glucose (Glucose Gel 15 Gm Gel..Gram.) 15 gm PO Q15M PRN; Protocol PRN Reason: per Hypoglycemia Standing Ord. Heparin Sodium (Porcine) (Heparin Sodium,Porcine 5,000 Unit/Ml Vial) 5,000 unit SUBCUT Q8H [facility] Last Admin: 08/24/21 14:56 Dose: Not Given Documented by: MAUREEN Non-Admin Reason: Off Unit: Surgery Vancomycin HCl 1,000 mg/ (Sodium Chloride) 270 mls @ 270 mls/hr IV Q12H [facility] Last Infusion: 08/25/21 04:41 Dose: 0 mls/hr Documented by: RACQUEL Piperacillin Sod/Tazobactam (Sod 3.375 gm/ Sodium Chloride) 50 mls @ 100 mls/hr IV Q6H [facility] Last Admin: 08/25/21 09:58 Dose: 100 mls/hr Documented by: MAUREEN Insulin Glargine (Insulin Glargine,Hum.Rec.Anlog 100 Unit/Ml 10 Ml Vial) 16 unit SUBCUT BID [facility] Last Admin: 08/25/21 08:18 Dose: 16 unit Documented by: MAUREEN Insulin Human Lispro (Insulin Lispro 100 Unit/Ml 3 Ml Vial) 0 unit SUBCUT QIDACHS [facility]; Protocol Last Admin: 08/25/21 08:18 Dose: 6 unit Documented by: MAUREEN Melatonin (Melatonin 3 Mg Tablet) 6 mg PO BEDTIME PRN PRN Reason: Insomnia Last Admin: 08/24/21 21:11 Dose: 6 mg Documented by: RACQUEL Morphine Sulfate (Morphine Sulfate 4 Mg/Ml Cartridge) 4 mg IVPUSH Q4H PRN; Protocol PRN Reason: Pain, Severe (Pain Scale 7-10) Last Admin: 08/25/21 09:58 Dose: 4 mg Documented by: MAUREEN Oxycodone HCl (Oxycodone Hcl Immed Release 5 Mg Tablet) 10 mg PO Q4H PRN PRN Reason: Pain, Severe (Pain Scale 7-10) Last Admin: 08/25/21 07:41 Dose: 10 mg Documented by: MAUREEN Oxycodone HCl (Oxycodone Hcl Immed Release 5 Mg Tablet) 5 mg PO Q4H PRN PRN Reason: Pain, Moderate (Pain Scale 4-6 Senna (Sennosides 8.6 Mg Tablet) 17.2 mg PO BEDTIME PRN PRN Reason: Constipation Sodium Chloride (0.9 % Sodium Chloride Flush 3 Ml Syringe) 3 ml IVFLUSH [facility] Last Admin: 08/25/21 08:19 Dose: 3 ml Documented by: MAUREEN <Teresa Davis PA-C - Last Filed: 08/25/21 10:38> Labs CBC & Chem 7: : 08/25/21 06:04 08/25/21 06:04 <Teresa Davis PA-C - Last Filed: 08/25/21 10:38> Labs: Laboratory Results - last 24 hr 08/24/21 08/24/21 08/24/21 10:36 11:45 16:49 MCV MCH MCHC RDW Plt Count MPV Immature Gran % (Auto) Neut % (Auto) Lymph % (Auto) Reagan % (Auto) Eos % (Auto) Baso % (Auto) Lymph # (Auto) Reagan # (Auto) Eos # (Auto) Baso # (Auto) Abs Immat Gran (auto) Absolute Neuts (auto) Absolute Nucleated RBC Nucleated RBC % (auto) Estim Creat Clear Calc Estimated GFR POC Glucose 219 H 352 H* Vancomycin Trough Blood Type O Positive Antibody Screen NEGATIVE 08/24/21 08/25/21 08/25/21 20:39 00:09 06:04 MCV MCH MCHC RDW Plt Count MPV Immature Gran % (Auto) Neut % (Auto) Lymph % (Auto) Reagan % (Auto) Eos % (Auto) Baso % (Auto) Lymph # (Auto) Reagan # (Auto) Eos # (Auto) Baso # (Auto) Abs Immat Gran (auto) Absolute Neuts (auto) Absolute Nucleated RBC Nucleated RBC % (auto) Estim Creat Clear Calc 88.1 Estimated GFR > 60 POC Glucose 328 H Vancomycin Trough 15.2 Blood Type Antibody Screen 08/25/21 08/25/21 06:04 07:02 MCV 78.6 L MCH 25.4 L MCHC 32.4 RDW 14.3 Plt Count 322 MPV 9.1 L Immature Gran % (Auto) 0.4 Neut % (Auto) 70.0 Lymph % (Auto) 20.3 Reagan % (Auto) 7.8 Eos % (Auto) 1.0 Baso % (Auto) 0.5 Lymph # (Auto) 1.6 Reagan # (Auto) 0.6 Eos # (Auto) 0.1 Baso # (Auto) 0.0 Abs Immat Gran (auto) 0.03 Absolute Neuts (auto) 5.7 Absolute Nucleated RBC 0.000 Nucleated RBC % (auto) 0.0 Estim Creat Clear Calc Estimated GFR POC Glucose 222 H Vancomycin Trough Blood Type Antibody Screen <Teresa Davis PA-C - Last Filed: 08/25/21 10:38> Procedures Date of Service Date of Service: 08/25/21 <Teresa Davis PA-C - Last Filed: 08/25/21 10:38> Progress Note: A&P Assessment and plan (1) Osteomyelitis: Status: Acute <CAMDEN Chowdhury Last Filed: 08/25/21 10:38> (2) Status post below-knee amputation of left lower extremity: Status: Acute <CAMDEN Chowdhury Last Filed: 08/25/21 10:38> Plan 36 year old male s/p left BKA for osteomyelitis. Dressing clean. He is having difficulty with pain. On morphine and oxycodone PRN. Will add ofirmev. If no improvement, may need to change to dilaudid for pain control. Will change dressing tomorrow morning. Patient comfortable with plan. Elevate left leg. <Teresa Davis PA-C - Last Filed: 08/25/21 10:38> Fall Risk Details Current Medications: Current Medications Acetaminophen (Acetaminophen 325 Mg Tablet) 650 mg PO Q6H PRN PRN Reason: Pain, Mild (Pain Scale 1-3) Dextrose (Dextrose 50 % 25 Gm/50 Ml Syringe) 25 gm IVPUSH Q15M PRN; Protocol PRN Reason: per Hypoglycemia Standing Ord. Gabapentin (Gabapentin 600 Mg Tablet) 600 mg PO TID [facility] Last Admin: 08/25/21 08:18 Dose: 600 mg Documented by: Glucose (Glucose Gel 15 Gm Gel..Gram.) 15 gm PO Q15M PRN; Protocol PRN Reason: per Hypoglycemia Standing Ord. Heparin Sodium (Porcine) (Heparin Sodium,Porcine 5,000 Unit/Ml Vial) 5,000 unit SUBCUT Q8H [facility] Last Admin: 08/24/21 14:56 Dose: Not Given Documented by: Vancomycin HCl 1,000 mg/ (Sodium Chloride) 270 mls @ 270 mls/hr IV Q12H [facility] Last Infusion: 08/25/21 04:41 Dose: Infused Documented by: Piperacillin Sod/Tazobactam (Sod 3.375 gm/ Sodium Chloride) 50 mls @ 100 mls/hr IV Q6H [facility] Last Admin: 08/25/21 09:58 Dose: 100 mls/hr Documented by: Insulin Glargine (Insulin Glargine,Hum.Rec.Anlog 100 Unit/Ml 10 Ml Vial) 16 unit SUBCUT BID [facility] Last Admin: 08/25/21 08:18 Dose: 16 unit Documented by: Insulin Human Lispro (Insulin Lispro 100 Unit/Ml 3 Ml Vial) 0 unit SUBCUT QIDACHS [facility]; Protocol Last Admin: 08/25/21 08:18 Dose: 6 unit Documented by: Melatonin (Melatonin 3 Mg Tablet) 6 mg PO BEDTIME PRN PRN Reason: Insomnia Last Admin: 08/24/21 21:11 Dose: 6 mg Documented by: Morphine Sulfate (Morphine Sulfate 4 Mg/Ml Cartridge) 4 mg IVPUSH Q4H PRN; Protocol PRN Reason: Pain, Severe (Pain Scale 7-10) Last Admin: 08/25/21 09:58 Dose: 4 mg Documented by: Oxycodone HCl (Oxycodone Hcl Immed Release 5 Mg Tablet) 10 mg PO Q4H PRN PRN Reason: Pain, Severe (Pain Scale 7-10) Last Admin: 08/25/21 07:41 Dose: 10 mg Documented by: Oxycodone HCl (Oxycodone Hcl Immed Release 5 Mg Tablet) 5 mg PO Q4H PRN PRN Reason: Pain, Moderate (Pain Scale 4-6 Senna (Sennosides 8.6 Mg Tablet) 17.2 mg PO BEDTIME PRN PRN Reason: Constipation Sodium Chloride (0.9 % Sodium Chloride Flush 3 Ml Syringe) 3 ml IVFLUSH QSHIFT [facility] Last Admin: 08/25/21 08:19 Dose: 3 ml Documented by: <Teresa Davis PA-C - Last Filed: 08/25/21 10:38> Time Spent With Patient Time: Total time spent is greater than 50% in coordination of care (as documented) at patient's floor/unit and/or counseling patient: <Teresa Davis PA-C - Last Filed: 08/25/21 10:38> Time with patient: 15 - 24 minutes <Teresa Davis PA-C - Last Filed: 08/25/21 10:38> Quality Stroke Does the patient have a stroke diagnosis?: No <Teresa Davis PA-C - Last Filed: 08/25/21 10:38> VTE Prior VTE?: No <Teresa Davis PA-C - Last Filed: 08/25/21 10:38> VTE Risk Level:: Medical - moderate - high <CAMDEN Chowdhury Last Filed: 08/25/21 10:38> VTE Device Contraindication: Treatment Not Indicated <Teresa Davis PA-C - Last Filed: 08/25/21 10:38> VTE Drug Contraindication: N/A - Med Ordered <Teresa Davis PA-C - Last Filed: 08/25/21 10:38>
--- NOTE | 2021-08-25 10:38 | P.PNGS_ITS ---
Subjective Subjective Date of Service: 08/25/21 Interval history: says he has adequate pain control no events overnight Physical Exam Vital Signs: Vital Signs: Last Vital Signs Temp 99.5 F 08/25/21 07:12 Pulse 98 08/25/21 09:49 Resp 16 08/25/21 07:12 BP 174/86 H 08/25/21 09:49 Pulse Ox 100 08/25/21 09:49 BMI result Body Mass Index 25.1 Const: General: comfortable and no acute distress Cardio: Rate: regular rate GI: Palpation (GI): Soft to palpation and nontender Extrem: Other: BKA site left - dressings dry, clean Objective Data Active Medications Acetaminophen (Acetaminophen 325 Mg Tablet) 650 mg PO Q6H PRN PRN Reason: Pain, Mild (Pain Scale 1-3) Dextrose (Dextrose 50 % 25 Gm/50 Ml Syringe) 25 gm IVPUSH Q15M PRN; Protocol PRN Reason: per Hypoglycemia Standing Ord. Gabapentin (Gabapentin 600 Mg Tablet) 600 mg PO TID COUNT INCLUDES [facility] Last Admin: 08/25/21 08:18 Dose: 600 mg Documented by: MAUREEN Glucose (Glucose Gel 15 Gm Gel..Gram.) 15 gm PO Q15M PRN; Protocol PRN Reason: per Hypoglycemia Standing Ord. Heparin Sodium (Porcine) (Heparin Sodium,Porcine 5,000 Unit/Ml Vial) 5,000 unit SUBCUT Q8H COUNT INCLUDES [facility] Last Admin: 08/24/21 14:56 Dose: Not Given Documented by: MAUREEN Non-Admin Reason: Off Unit: Surgery Vancomycin HCl 1,000 mg/ (Sodium Chloride) 270 mls @ 270 mls/hr IV Q12H COUNT [facility]CLUDES [facility] Last Infusion: 08/25/21 04:41 Dose: 0 mls/hr Documented by: RACQUEL Piperacillin Sod/Tazobactam (Sod 3.375 gm/ Sodium Chloride) 50 mls @ 100 mls/hr IV Q6H COUNT [facility]CLUDES [facility] Last Admin: 08/25/21 09:58 Dose: 100 mls/hr Documented by: MAUREEN Insulin Glargine (Insulin Glargine,Hum.Rec.Anlog 100 Unit/Ml 10 Ml Vial) 16 unit SUBCUT BID COUNT [facility]CLUDES [facility] Last Admin: 08/25/21 08:18 Dose: 16 unit Documented by: MAUREEN Insulin Human Lispro (Insulin Lispro 100 Unit/Ml 3 Ml Vial) 0 unit SUBCUT QIDACHS COUNT [facility]CLUDES [facility]; Protocol Last Admin: 08/25/21 08:18 Dose: 6 unit Documented by: MAUREEN Melatonin (Melatonin 3 Mg Tablet) 6 mg PO BEDTIME PRN PRN Reason: Insomnia Last Admin: 08/24/21 21:11 Dose: 6 mg Documented by: RACQUEL Morphine Sulfate (Morphine Sulfate 4 Mg/Ml Cartridge) 4 mg IVPUSH Q4H PRN; Protocol PRN Reason: Pain, Severe (Pain Scale 7-10) Last Admin: 08/25/21 09:58 Dose: 4 mg Documented by: MAUREEN Oxycodone HCl (Oxycodone Hcl Immed Release 5 Mg Tablet) 10 mg PO Q4H PRN PRN Reason: Pain, Severe (Pain Scale 7-10) Last Admin: 08/25/21 07:41 Dose: 10 mg Documented by: MAUREEN Oxycodone HCl (Oxycodone Hcl Immed Release 5 Mg Tablet) 5 mg PO Q4H PRN PRN Reason: Pain, Moderate (Pain Scale 4-6 Senna (Sennosides 8.6 Mg Tablet) 17.2 mg PO BEDTIME PRN PRN Reason: Constipation Sodium Chloride (0.9 % Sodium Chloride Flush 3 Ml Syringe) [facility] Last Admin: 08/25/21 08:19 Dose: 3 ml Documented by: MAUREEN Labs CBC & Chem 7: 08/25/21 06:04 08/25/21 06:04 Labs: Laboratory Results - last 24 hr 08/24/21 08/24/21 08/24/21 10:36 11:45 16:49 MCV MCH MCHC RDW Plt Count MPV Immature Gran % (Auto) Neut % (Auto) Lymph % (Auto) [place] % (Auto) Eos % (Auto) Baso % (Auto) Lymph # (Auto) [place] # (Auto) Eos # (Auto) Baso # (Auto) Abs Immat Gran (auto) Absolute Neuts (auto) Absolute Nucleated RBC Nucleated RBC % (auto) Estim Creat Clear Calc Estimated GFR POC Glucose 219 H 352 H* Vancomycin Trough Blood Type O Positive Antibody Screen NEGATIVE 08/24/21 08/25/21 08/25/21 20:39 00:09 06:04 MCV MCH MCHC RDW Plt Count MPV Immature Gran % (Auto) Neut % (Auto) Lymph % (Auto) [place] % (Auto) Eos % (Auto) Baso % (Auto) Lymph # (Auto) [place] # (Auto) Eos # (Auto) Baso # (Auto) Abs Immat Gran (auto) Absolute Neuts (auto) Absolute Nucleated RBC Nucleated RBC % (auto) Estim Creat Clear Calc 88.1 Estimated GFR > 60 POC Glucose 328 H Vancomycin Trough 15.2 Blood Type Antibody Screen 08/25/21 08/25/21 06:04 07:02 MCV 78.6 L MCH 25.4 L MCHC 32.4 RDW 14.3 Plt Count 322 MPV 9.1 L Immature Gran % (Auto) 0.4 Neut % (Auto) 70.0 Lymph % (Auto) 20.3 [place] % (Auto) 7.8 Eos % (Auto) 1.0 Baso % (Auto) 0.5 Lymph # (Auto) 1.6 [place] # (Auto) 0.6 Eos # (Auto) 0.1 Baso # (Auto) 0.0 Abs Immat Gran (auto) 0.03 Absolute Neuts (auto) 5.7 Absolute Nucleated RBC 0.000 Nucleated RBC % (auto) 0.0 Estim Creat Clear Calc Estimated GFR POC Glucose 222 H Vancomycin Trough Blood Type Antibody Screen Procedures Date of Service Date of Service: 08/25/21 Progress Note: A&P Assessment and plan (1) Foot osteomyelitis, left: Status: Acute Assessment and Plan: S/P BKA dressings dry plan change of dressings tomorrow keep stump eleveated pain mgt Fall Risk Details Current Medications: Current Medications Acetaminophen (Acetaminophen 325 Mg Tablet) 650 mg PO Q6H PRN PRN Reason: Pain, Mild (Pain Scale 1-3) Dextrose (Dextrose 50 % 25 Gm/50 Ml Syringe) 25 gm IVPUSH Q15M PRN; Protocol PRN Reason: per Hypoglycemia Standing Ord. Gabapentin (Gabapentin 600 Mg Tablet) 600 mg PO TID [facility] Last Admin: 08/25/21 08:18 Dose: 600 mg Documented by: Glucose (Glucose Gel 15 Gm Gel..Gram.) 15 gm PO Q15M PRN; Protocol PRN Reason: per Hypoglycemia Standing Ord. Heparin Sodium (Porcine) (Heparin Sodium,Porcine 5,000 Unit/Ml Vial) 5,000 unit SUBCUT Q8H COUNT INCLUDES [facility] Last Admin: 08/24/21 14:56 Dose: Not Given Documented by: Vancomycin HCl 1,000 mg/ (Sodium Chloride) 270 mls @ 270 mls/hr IV Q12H COUNT INCLUDES [facility] Last Infusion: 08/25/21 04:41 Dose: Infused Documented by: Piperacillin Sod/Tazobactam (Sod 3.375 gm/ Sodium Chloride) 50 mls @ 100 mls/hr IV Q6H COUNT INCLUDES [facility] Last Admin: 08/25/21 09:58 Dose: 100 mls/hr Documented by: Insulin Glargine (Insulin Glargine,Hum.Rec.Anlog 100 Unit/Ml 10 Ml Vial) 16 unit SUBCUT BID COUNT INCLUDES [facility] Last Admin: 08/25/21 08:18 Dose: 16 unit Documented by: Insulin Human Lispro (Insulin Lispro 100 Unit/Ml 3 Ml Vial) 0 unit SUBCUT QIDACHS COUNT INCLUDES [facility]; Protocol Last Admin: 08/25/21 08:18 Dose: 6 unit Documented by: Melatonin (Melatonin 3 Mg Tablet) 6 mg PO BEDTIME PRN PRN Reason: Insomnia Last Admin: 08/24/21 21:11 Dose: 6 mg Documented by: Morphine Sulfate (Morphine Sulfate 4 Mg/Ml Cartridge) 4 mg IVPUSH Q4H PRN; Protocol PRN Reason: Pain, Severe (Pain Scale 7-10) Last Admin: 08/25/21 09:58 Dose: 4 mg Documented by: Oxycodone HCl (Oxycodone Hcl Immed Release 5 Mg Tablet) 10 mg PO Q4H PRN PRN Reason: Pain, Severe (Pain Scale 7-10) Last Admin: 08/25/21 07:41 Dose: 10 mg Documented by: Oxycodone HCl (Oxycodone Hcl Immed Release 5 Mg Tablet) 5 mg PO Q4H PRN PRN Reason: Pain, Moderate (Pain Scale 4-6 Senna (Sennosides 8.6 Mg Tablet) 17.2 mg PO BEDTIME PRN PRN Reason: Constipation Sodium Chloride (0.9 % Sodium Chloride Flush 3 Ml Syringe) 3 ml IVFLUSH QSHIFT COUNT INCLUDES [facility] Last Admin: 08/25/21 08:19 Dose: 3 ml Documented by: Time Spent With Patient Time: Total time spent is greater than 50% in coordination of care (as documented) at patient's floor/unit and/or counseling patient: Time with patient: 15 - 24 minutes Quality Stroke Does the patient have a stroke diagnosis?: No VTE Prior VTE?: No VTE Risk Level:: Medical - moderate - high VTE Device Contraindication: Treatment Not Indicated VTE Drug Contraindication: N/A - Med Ordered
[2021-08-25 11:05] LABS: Glucose, Whole Blood 279 mg/dL (60-115)
--- NOTE | 2021-08-25 11:50 | P.PNIM_ITS ---
Subjective Subjective Date of Service: 08/25/21 Interval History: f/u on osteomylitis, s/p Left BKA yesterday, uncontrolled pain Review of Systems pain in ampuated limb, no fever Physical Exam Vital Signs: Vital Signs: Last Vital Signs Temp 99.5 F 08/25/21 07:12 Pulse 98 08/25/21 09:49 Resp 16 08/25/21 07:12 BP 174/86 H 08/25/21 09:49 Pulse Ox 100 08/25/21 09:49 BMI result Body Mass Index 25.1 Const: Other: General: AO X 3, no acute distress Resp: CTA bilateral CVS: S1,S2,RRR GI: +BS, NT, no distention Skin: left amputated stump, dressing in place Neuro: motor grossly intact Psych: appropriate affect Objective Data Active Medications Dextrose (Dextrose 50 % 25 Gm/50 Ml Syringe) 25 gm IVPUSH Q15M PRN; Protocol PRN Reason: per Hypoglycemia Standing Ord. Gabapentin (Gabapentin 600 Mg Tablet) 600 mg PO TID [facility] Last Admin: 08/25/21 08:18 Dose: 600 mg Documented by: MAUREEN Glucose (Glucose Gel 15 Gm Gel..Gram.) 15 gm PO Q15M PRN; Protocol PRN Reason: per Hypoglycemia Standing Ord. Heparin Sodium (Porcine) (Heparin Sodium,Porcine 5,000 Unit/Ml Vial) 5,000 unit SUBCUT Q8H [facility] Last Admin: 08/24/21 14:56 Dose: Not Given Documented by: MAUREEN Non-Admin Reason: Off Unit: Surgery Vancomycin HCl 1,000 mg/ (Sodium Chloride) 270 mls @ 270 mls/hr IV Q12H [facility] Last Infusion: 08/25/21 04:41 Dose: 0 mls/hr Documented by: RACQUEL Piperacillin Sod/Tazobactam (Sod 3.375 gm/ Sodium Chloride) 50 mls @ 100 mls/hr IV Q6H [facility] Last Infusion: 08/25/21 10:38 Dose: 0 mls/hr Documented by: MAUREEN Acetaminophen (Ofirmev) 1,000 mg in 100 mls @ 400 mls/hr IV Q6H [facility] Last Admin: 08/25/21 11:45 Dose: 400 mls/hr Documented by: MAUREEN Insulin Glargine (Insulin Glargine,Hum.Rec.Anlog 100 Unit/Ml 10 Ml Vial) 16 unit SUBCUT BID [facility] Last Admin: 08/25/21 08:18 Dose: 16 unit Documented by: MAUREEN Insulin Human Lispro (Insulin Lispro 100 Unit/Ml 3 Ml Vial) 0 unit SUBCUT QIDACHS [facility]; Protocol Last Admin: 08/25/21 11:45 Dose: 8 unit Documented by: MAUREEN Melatonin (Melatonin 3 Mg Tablet) 6 mg PO BEDTIME PRN PRN Reason: Insomnia Last Admin: 08/24/21 21:11 Dose: 6 mg Documented by: RACQUEL Morphine Sulfate (Morphine Sulfate 4 Mg/Ml Cartridge) 4 mg IVPUSH Q4H PRN; Protocol PRN Reason: Pain, Severe (Pain Scale 7-10) Last Admin: 08/25/21 09:58 Dose: 4 mg Documented by: MAUREEN Oxycodone HCl (Oxycodone Hcl Immed Release 5 Mg Tablet) 10 mg PO Q4H PRN PRN Reason: Pain, Severe (Pain Scale 7-10) Last Admin: 08/25/21 07:41 Dose: 10 mg Documented by: MAUREEN Oxycodone HCl (Oxycodone Hcl Immed Release 5 Mg Tablet) 5 mg PO Q4H PRN PRN Reason: Pain, Moderate (Pain Scale 4-6 Senna (Sennosides 8.6 Mg Tablet) 17.2 mg PO BEDTIME PRN PRN Reason: Constipation Sodium Chloride (0.9 % Sodium Chloride Flush 3 Ml Syringe) 3 ml IVFLUSH QSHIFT [facility] Last Admin: 08/25/21 08:19 Dose: 3 ml Documented by: MAUREEN Labs CBC & Chem 7: 08/25/21 06:04 08/25/21 06:04 Labs: Laboratory Results - last 24 hr 08/24/21 08/24/21 08/24/21 11:45 16:49 20:39 MCV MCH MCHC RDW Plt Count MPV Immature Gran % (Auto) Neut % (Auto) Lymph % (Auto) [place] % (Auto) Eos % (Auto) Baso % (Auto) Lymph # (Auto) [place] # (Auto) Eos # (Auto) Baso # (Auto) Abs Immat Gran (auto) Absolute Neuts (auto) Absolute Nucleated RBC Nucleated RBC % (auto) Estim Creat Clear Calc Estimated GFR POC Glucose 352 H* 328 H Vancomycin Trough Blood Type O Positive Antibody Screen NEGATIVE 08/25/21 08/25/21 08/25/21 00:09 06:04 06:04 MCV 78.6 L MCH 25.4 L MCHC 32.4 RDW 14.3 Plt Count 322 MPV 9.1 L Immature Gran % (Auto) 0.4 Neut % (Auto) 70.0 Lymph % (Auto) 20.3 [place] % (Auto) 7.8 Eos % (Auto) 1.0 Baso % (Auto) 0.5 Lymph # (Auto) 1.6 [place] # (Auto) 0.6 Eos # (Auto) 0.1 Baso # (Auto) 0.0 Abs Immat Gran (auto) 0.03 Absolute Neuts (auto) 5.7 Absolute Nucleated RBC 0.000 Nucleated RBC % (auto) 0.0 Estim Creat Clear Calc 88.1 Estimated GFR > 60 POC Glucose Vancomycin Trough 15.2 Blood Type Antibody Screen 08/25/21 08/25/21 07:02 11:02 MCV MCH MCHC RDW Plt Count MPV Immature Gran % (Auto) Neut % (Auto) Lymph % (Auto) [place] % (Auto) Eos % (Auto) Baso % (Auto) Lymph # (Auto) [place] # (Auto) Eos # (Auto) Baso # (Auto) Abs Immat Gran (auto) Absolute Neuts (auto) Absolute Nucleated RBC Nucleated RBC % (auto) Estim Creat Clear Calc Estimated GFR POC Glucose 222 H 279 H Vancomycin Trough Blood Type Antibody Screen Assessment and Plan (1) Status post below-knee amputation of left lower extremity: Status: Acute (2) Osteomyelitis: Status: Acute (3) Non-healing ulcer: Status: Acute (4) Diabetic infection of left foot: Status: Acute Plan 36-year-old male with a past medical history of diabetes, diabetic neuropathy, history of diabetic foot infection/osteomyelitis status post left foot tarsometatarsal amputation, history of foot ulcer on the stump; substance abuse, anemia , recent admission to the hospital for left foot osteomyelitis/MRSA bacteremia, [facility] on 08/04/2021 interrupting the treatment presented to the hospital today with a chief complaint of increased left foot pain. Left diabetic associated foot ulcer/osteomyelitis, has not responded to Abx s/p BKA Thursday 08/24 -Pain controll with Morphine, Oxycodone and IV APAP and if not better change to Dilausid anemia of chronic disease , patient asymptomatic, no chest pain, no palpitation, no lightheadedness or dizziness, hematocrit improved to 26.7, hemoglobin 8.7. follow CBC closely Diabetes mellitus--Generally uncontrolled, non compliant with meds, girlfriends brings snacks, continue Lantus and SSI -FBS 222, incrase Lantus to 20 from 16. History of neuropathy: Continue home gabapentin DVT prophylaxis: [facility] PT and OT eval for possible STR Code status: Full code Quality Stroke Does the patient have a stroke diagnosis?: No VTE Prior VTE?: No VTE Risk Level:: Medical - moderate - high VTE Device Contraindication: Treatment Not Indicated VTE Drug Contraindication: N/A - Med Ordered
[2021-08-25 20:13] LABS: Glucose, Whole Blood 322 mg/dL (60-115)
[2021-08-25 20:13] LABS: Glucose, Whole Blood 192 mg/dL (60-115)
[2021-08-25] MEDS: Insulin Glargine,Hum.rec.anlog 100 UNIT/ML 10 ML VIAL 20 UNIT SUBCUT (21:38)
[2021-08-25] MEDS: Melatonin 3 MG TABLET 6 MG PO (21:38)
[2021-08-26] MEDS: vancomycin HCL 1,000 MG in 0.9 % Sodium Chloride 250 ML 270 MG IV (03:07)
[2021-08-26] MEDS: 0.9 % Sodium Chloride Flush 3 ML SYRINGE IVFLUSH ×2 (03:09→07:55)
[2021-08-26] MEDS: Piperacillin Sodium/Tazobactam 3.375 GM in 0.9 % Sodium Chloride 50 ML IV ×2 (04:46→09:23)
[2021-08-26 06:21] VITALS: RESP 18
[2021-08-26] MEDS: Morphine Sulfate 4 MG/ML CARTRIDGE IVPUSH ×2 (06:21→10:54)
[2021-08-26 07:02] LABS: Creatinine Clr Calc Pharmacy 104.5; Estimated Glomerular Filt Rate > 60
[2021-08-26 07:02] LABS: Glucose, Whole Blood 194 mg/dL (60-115)
[2021-08-26 07:19] VITALS: BP 166/93; PULSE 89; RESP 16; TEMP 37.3; O2SAT 98
[2021-08-26] MEDS: Insulin Glargine,Hum.rec.anlog 100 UNIT/ML 10 ML VIAL 20 UNIT SUBCUT (07:52)
[2021-08-26] MEDS: Gabapentin 600 MG TABLET PO (07:53)
[2021-08-26] MEDS: oxyCODONE HCl Immed Release 5 MG TABLET 10 MG PO (07:53)
[2021-08-26] MEDS: Insulin Lispro 100 UNIT/ML 3 ML VIAL SUBCUT ×2 (08:01→11:42)
--- NOTE | 2021-08-26 08:30 | MHC.CM.PN ---
Male 36 S/P BKA [facility]. Covid test is pending. BLS will provide transportation.
[2021-08-26 09:08] LABS: COVID-19 Test Negative (Negative); IDNOW Serial# 9DD0AD1C
--- NOTE | 2021-08-26 10:42 | P.PNGS_ITS ---
Subjective Subjective Date of Service: 08/26/21 Interval history: Denies significant complaints Pain well controlled Security in the room - patient has been smoking Physical Exam Vital Signs: Vital Signs: Last Vital Signs Temp 99.1 F 08/26/21 07:19 Pulse 89 08/26/21 07:19 Resp 16 08/26/21 07:19 BP 166/93 H 08/26/21 07:19 Pulse Ox 98 08/26/21 07:19 BMI result Body Mass Index 25.1 Const: General: comfortable and no acute distress Extrem: Other: Amputation site on the left - healing well, viable, no infection, michelle intact , nose bleeding Objective Data Active Medications Dextrose (Dextrose 50 % 25 Gm/50 Ml Syringe) 25 gm IVPUSH Q15M PRN; Protocol PRN Reason: per Hypoglycemia Standing Ord. Gabapentin (Gabapentin 600 Mg Tablet) 600 mg PO TID [facility] Last Admin: 08/26/21 07:53 Dose: 600 mg Documented by: FEDERICO Glucose (Glucose Gel 15 Gm Gel..Gram.) 15 gm PO Q15M PRN; Protocol PRN Reason: per Hypoglycemia Standing Ord. Heparin Sodium (Porcine) (Heparin Sodium,Porcine 5,000 Unit/Ml Vial) 5,000 unit SUBCUT Q8H [facility] Last Admin: 08/24/21 14:56 Dose: Not Given Documented by: MAUREEN Non-Admin Reason: Off Unit: Surgery Vancomycin HCl 1,000 mg/ (Sodium Chloride) 270 mls @ 270 mls/hr IV Q12H [facility] Last Infusion: 08/26/21 04:15 Dose: 0 mls/hr Documented by: PARK Piperacillin Sod/Tazobactam (Sod 3.375 gm/ Sodium Chloride) 50 mls @ 100 mls/hr IV Q6H [facility] Last Infusion: 08/26/21 10:08 Dose: 0 mls/hr Documented by: FEDERICO Acetaminophen (Ofirmev) 1,000 mg in 100 mls @ 400 mls/hr IV Q6H [facility] Last Admin: 08/26/21 10:04 Dose: 400 mls/hr Documented by: FEDERICO Insulin Glargine (Insulin Glargine,Hum.Rec.Anlog 100 Unit/Ml 10 Ml Vial) 20 u nit SUBCUT BID [facility] Last Admin: 08/26/21 07:52 Dose: 20 unit Documented by: FEDERICO Insulin Human Lispro (Insulin Lispro 100 Unit/Ml 3 M[facility]) [facility] Last Admin: 08/26/21 08:01 Dose: 4 unit Documented by: FEDERICO Melatonin (Melatonin 3 Mg Tablet) 6 mg PO BEDTIME PRN PRN Reason: Insomnia Last Admin: 08/25/21 21:38 Dose: 6 mg Documented by: PARK Morphine Sulfate (Morphine Sulfate 4 Mg/Ml Cartridge) 4 mg IVPUSH Q4H PRN; Protocol PRN Reason: Pain, Severe (Pain Scale 7-10) Last Admin: 08/26/21 06:21 Dose: 4 mg Documented by: PARK Oxycodone HCl (Oxycodone Hcl Immed Release 5 Mg Tablet) 10 mg PO Q4H PRN PRN Reason: Pain, Severe (Pain Scale 7-10) Last Admin: 08/26/21 07:53 Dose: 10 mg Documented by: FEDERICO Oxycodone HCl (Oxycodone Hcl Immed Release 5 Mg Tablet) 5 mg PO Q4H PRN PRN Reason: Pain, Moderate (Pain Scale 4-6 Senna (Sennosides 8.6 Mg Tablet) 17.2 mg PO BEDTIME PRN PRN Reason: Constipation Sodium Chloride (0.9 % Sodium Chloride Flush 3 Ml [facility]ringe) [facility] Last Admin: 08/26/21 07:55 Dose: 3 ml Documented by: FEDERICO Labs CBC & Chem 7: 08/25/21 06:04 08/26/21 05:55 Labs: Laboratory Results - last 24 hr 08/25/21 08/25/21 08/25/21 11:02 16:32 19:22 Estim Creat Clear Calc Estimated GFR POC Glucose 279 H 322 H 192 H COVID-19 ([facility]) COVID-19 Clin Com 08/26/21 08/26/21 08/26/21 05:55 06:58 08:30 Estim Creat Clear Calc 104.5 Estimated GFR > 60 POC Glucose 194 H COVID-19 (MARY KATE) Negative COVID-19 Clin Com See Note Procedures Date of Service Date of Service: 08/26/21 Progress Note: A&P Assessment and plan (1) Status post below-knee amputation of left lower extremity: Status: Acute Assessment and Plan: Doing very well. Dressings changed BKA Stump wrapped in thick dressings, Kerlix and Mook wrap Dry dressings daily Fall Risk Details Current Medications: Current Medications Dextrose (Dextrose 50 % 25 Gm/50 Ml Syringe) 25 gm IVPUSH Q15M PRN; Protocol PRN Reason: per Hypoglycemia Standing Ord. Gabapentin (Gabapentin 600 Mg Tablet) 600 mg PO TID [facility] Last Admin: 08/26/21 07:53 Dose: 600 mg Documented by: Glucose (Glucose Gel 15 Gm Gel..Gram.) 15 gm PO Q15M PRN; Protocol PRN Reason: per Hypoglycemia Standing Ord. Heparin Sodium (Porcine) (Heparin Sodium,Porcine 5,000 Unit/Ml Vial) 5,000 unit SUBCUT Q8H [facility] Last Admin: 08/24/21 14:56 Dose: Not Given Documented by: Vancomycin HCl 1,000 mg/ (Sodium Chloride) 270 mls @ 270 mls/hr IV Q12H [facility] Last Infusion: 08/26/21 04:15 Dose: Infused Documented by: Piperacillin Sod/Tazobactam (Sod 3.375 gm/ Sodium Chloride) 50 mls @ 100 mls/hr IV Q6H [facility] Last Infusion: 08/26/21 10:08 Dose: Infused Documented by: Acetaminophen (Ofirmev) 1,000 mg in 100 mls @ 400 mls/hr IV Q6H [facility] Last Admin: 08/26/21 10:04 Dose: 400 mls/hr Documented by: Insulin Glargine (Insulin Glargine,Hum.Rec.Anlog 100 Unit/Ml 10 Ml Vial) 20 unit SUBCUT BID [facility] Last Admin: 08/26/21 07:52 Dose: 20 unit Documented by: Insulin Human Lispro (Insulin Lispro 100 Unit/Ml 3 Ml Vial) 0 unit SUBCUT QIDACHS [facility]; Protocol Last Admin: 08/26/21 08:01 Dose: 4 unit Documented by: Melatonin (Melatonin 3 Mg Tablet) 6 mg PO BEDTIME PRN PRN Reason: Insomnia Last Admin: 08/25/21 21:38 Dose: 6 mg Documented by: Morphine Sulfate (Morphine Sulfate 4 Mg/Ml Cartridge) 4 mg IVPUSH Q4H PRN; Protocol PRN Reason: Pain, Severe (Pain Scale 7-10) Last Admin: 08/26/21 06:21 Dose: 4 mg Documented by: Oxycodone HCl (Oxycodone Hcl Immed Release 5 Mg Tablet) 10 mg PO Q4H PRN PRN Reason: Pain, Severe (Pain Scale 7-10) Last Admin: 08/26/21 07:53 Dose: 10 mg Documented by: Oxycodone HCl (Oxycodone Hcl Immed Release 5 Mg Tablet) 5 mg PO Q4H PRN PRN Reason: Pain, Moderate (Pain Scale 4-6 Senna (Sennosides 8.6 Mg Tablet) 17.2 mg PO BEDTIME PRN PRN Reason: Constipation Sodium Chloride (0.9 % Sodium Chloride Flush 3 Ml Syringe) 3 ml IVFLUSH QSHIFT [facility] Last Admin: 08/26/21 07:55 Dose: 3 ml Documented by: Time Spent With Patient Time: Total time spent is greater than 50% in coordination of care (as documented) at patient's floor/unit and/or counseling patient: Time with patient: 15 - 24 minutes Quality Stroke Does the patient have a stroke diagnosis?: No VTE Prior VTE?: No VTE Risk Level:: Medical - moderate - high VTE Device Contraindication: Treatment Not Indicated VTE Drug Contraindication: N/A - Med Ordered
[2021-08-26 11:00] LABS: Glucose, Whole Blood 292 mg/dL (60-115)
--- NOTE | 2021-08-26 11:26 | P.DS_ITS ---
DS: Providers Provider Date of Service: 08/26/21 Date of admission: 08/17/21 02:37 Primary care physician: Jose Manuel Alicea MD Consults: 08/17/21 02:37 Consult to Infectious Diseases Routine Consulting Provider: Jacqueline Lira Reason for consultation: osteomyelitis; osteomyelitis of foot. 08/17/21 02:57 Consult to General Surgery Routine Consulting Provider: Jose Manuel Randall Reason for consultation: foot osteomyelitis 08/17/21 11:40 Consult to Orthopedics Routine Consulting Provider: Devon Bowers Reason for consultation: ? septic arthritis tibiotalar area Has provider been notified: No DS: Diagnosis Discharge Diagnosis (1) Status post below-knee amputation of left lower extremity: Status: Acute DS: Summary Hospital Course Hospital Course: Chief Complaint: Left foot pain 36-year-old male with a past medical history of diabetes, diabetic neuropathy, history of diabetic foot infection/osteomyelitis status post left foot tarsometatarsal amputation, history of foot ulcer on the stump; substance abuse, anemia , recent admission to the hospital for left foot osteomyelitis/MRSA bacteremia, [facility] on 08/04/2021 interrupting the treatment presented to the hospital today with a chief complaint of increased left foot pain. Hospital coruse: Left diabetic associated? foot ulcer/osteomyelitis, has not responded to Abx? so he underwent BKA by Dr. Randall on Thursday 08/24 and doing well post op. Will prescribe oxycodone for pain upon discharge. Dressing changes as instructed by surgery--Wound care:Dry dressings with thick gauze, wrap the stump with Kerlix and Mook bandage Okay to get the stump wet Follow-up in the office in [phone] Randall. PT recommends short term rehab which he is agreeable with. Anemia of chronic disease , patient asymptomatic, no chest pain, no palpitation, no lightheadedness or dizziness,? hematocrit improved to 26.7, hemoglobin 8.7. follow CBC? closely Diabetes mellitus--Generally uncontrolled, non compliant with meds, girlfriends brings snacks, continue Lantus and SSI History of neuropathy: Continue home gabapentin Time Spent with Patient Time attestation: Total time spent providing and/or coordinating discharge services: Discharge coordination time: Greater than 30 minutes Quality: Stroke Does the patient have a stroke diagnosis?: No Physical Exam Vital Signs: Vital Signs: Last Vital Signs Temp 99.1 F 08/26/21 07:19 Pulse 89 08/26/21 07:19 Resp 16 08/26/21 07:19 BP 166/93 H 08/26/21 07:19 Pulse Ox 98 08/26/21 07:19 BMI result Body Mass Index 25.1 DS: Data Data Completed and Pending Completed studies during hospitalization [Text1]: Procedures Detachment at Right Foot, Partial 1st Ray, Open Approach (05/06/20) Detachment at Right Foot, Partial 2nd Ray, Open Approach (05/06/20) Drainage of Left Foot Skin, External Approach (01/31/21) Insertion of Infusion Device into Right Basilic Vein, Percutaneous Approach (01/31/21) Insertion of Infusion Device into Superior Vena Cava, Percutaneous Approach (05/17/20) Transfusion of Nonautologous Red Blood Cells into Peripheral Vein, Percutaneous Approach (08/05/21) Ultrasonography of Superior Vena Cava, Guidance (05/17/20) Pending studies at discharge: Pending at discharge 08/24/21 12:25 Surgical [PTH] Routine Labs on day of discharge: Laboratory Results - last 24 hr 08/25/21 08/25/21 08/26/21 16:32 19:22 05:55 Creatinine 1.02 Estim Creat Clear Calc 104.5 Estimated GFR > 60 POC Glucose 322 H 192 H COVID-19 ([facility]) COVID-19 Clin [place] 08/26/21 08/26/21 08/26/21 06:58 08:30 10:50 Creatinine Estim Creat Clear Calc Estimated GFR POC Glucose 194 H 292 H COVID-19 ([facility]) Negative COVID-19 Clin Com See Note Discharge Plan Discharge Anticipated Discharge Date/Time: 08/26/21 11:21 Patient Disposition: Xfer SNF Discharge Diagnosis: Osteomyltitis of left foot Referrals: Jose Manuel Alicea MD [Primary Care Provider] - 1 Week Discharge Medications: New oxycodone 5 mg Tablet 10 mg PO Q4H PRN (Reason: Pain, Severe (Pain Scale 7-10)) Qty: 20 0RF Continued ferrous sulfate 325 mg (65 mg iron) Tablet 325 mg PO DAILY 0RF metformin 500 mg Tablet 1,000 mg PO BID 0RF gabapentin 600 mg Tablet 600 mg PO TID 0RF insulin lispro [Admelog U-100 Insulin lispro] 100 unit/mL Solution 1 sliding scale dose SUBCUT QID 0RF Protocol: Insulin Correction Scale Less than or equal to 110 ---- Give (units): 0 111 to 150 Give (units): 0 151 to 200 Give (units): 2 201 to 250 Give (units): 4 251 to 300 Give (units): 6 301 to 350 Give (units): 8 Greater than 350 Give (units): 10 Call MD if Blood Glucose > : 350 Candie Bergar U-100 Insulin 100 unit/mL (3 mL) Insulin Pen 20 unit SUBCUT BID 0RF (DME) pen needle, diabetic [BD Ultra-Fine Mini Pen Needle] 31 gauge x 3/16 needle subcut TID 0RF Discharge Orders: Discharge Order (Routine); Ordered 08/26/21 Ordered By: Zachery Mckeon Diet: advance to usual diet and diabetic diet Activity on Discharge: As tolerated Stand Alone Forms: Patient Portal Discharge page Activity Restrictions/Additional Instructions: Wound care: Dry dressings with thick gauze, wrap the stump with Kerlix and Mook bandage Okay to get the stump wet Follow-up in the office in [phone] Randall Care Plan Goals: Proper healing of wound Health Concerns: s/p ampuation of left below knee, diabetes Plan of Treatment: wound instruction as above, oxycodone for pain, insulin for diabetes Assessment: as above
--- NOTE | 2021-08-26 11:50 | MHC.CM.PN ---
Patient is discharged today to [facility] via BLS. All discharge info including a Negative Covid result have been sent. The Pts PO Vishnu was notified via VM that [facility]. Contact INFO for this policy writer sales was provided in the VM.
--- NOTE | 2021-08-26 11:51 | MHC.INPTTRAN ---
dsg changed by Dr Randall today. dsg and vivi wrap intact.
[2021-08-26 13:08] LABS: Vancomycin Trough 14.1 mcg/mL (10.0-20.0)
== END 2021-08-26 13:05 | disposition skilled nursing facility (03) | DRG 305 ==
LOC: HO.ED 08-17 01:57 → HO.EDOVER 08-17 02:49 → HO.IMC 08-21 06:13
PROVIDERS: Hospitalist; Physician Assistant Surgical; Surgery; Admitting Provider Hospitalist; Emergency Provider Internal Medicine; PCP Internal Medicine; Visit Provider Internal Medicine
PROC: 0Y6J0Z2 Detachment at Left Lower Leg, Mid, Open Approach (ICD-10-PCS; CPT 27880; principal; 2021-08-24 13:30)
DX: T87.44 Infection of amputation stump, left lower extremity (principal); E11.40 Type 2 diabetes mellitus with diabetic neuropathy, unspecified; D63.8 Anemia in other chronic diseases classified elsewhere; E11.621 Type 2 diabetes mellitus with foot ulcer; E11.69 Type 2 diabetes mellitus with other specified complication; M86.672 Other chronic osteomyelitis, left ankle and foot; L97.529 Non-pressure chronic ulcer of other part of left foot with unspecified severity; F17.210 Nicotine dependence, cigarettes, uncomplicated; Z20.822 Contact with and (suspected) exposure to COVID-19; Z71.6 Tobacco abuse counseling; Z79.4 Long term (current) use of insulin; Z79.84 Long term (current) use of oral hypoglycemic drugs; Z79.899 Other long term (current) drug therapy; Z91.14 Patient's other noncompliance with medication regimen; Z91.11 Patient's noncompliance with dietary regimen
CPT/HCPCS: 36415; 71045; 80048; 80053; 80202; 82565; 82947; 83605; 85014; 85018; 85025; 85027; 85610; 86850; 86900; 86901; 87040; 87635; 88307; 88311; 93971; 96361; 96374; 96375; 97162; 97165; 99024; 99285; J0131; J1170; J2250; J2270; J2543; J3010; J3370

== ENCOUNTER → 2021-09-09 10:00 | Outpatient (BNVA) | payer MEDICAID, SELFPAY | PROVIDERS: PCP Internal Medicine; Referring Provider Internal Medicine; Visit Provider Surgery | DX: Z47.81 Encounter for orthopedic aftercare following surgical amputation (principal); Z89.512 Acquired absence of left leg below knee | CPT/HCPCS: 99212 ==

== ENCOUNTER → 2021-10-08 15:25 | Outpatient (BNVA) | payer OTHER, SELFPAY | PROVIDERS: PCP Internal Medicine; Referring Provider Internal Medicine; Visit Provider Surgery | DX: Z89.512 Acquired absence of left leg below knee (principal) | CPT/HCPCS: 99212 ==

== ENCOUNTER → 2021-10-28 13:56 | Outpatient (BNVA) | payer OTHER, SELFPAY | PROVIDERS: PCP Internal Medicine; Referring Provider Internal Medicine; Visit Provider Surgery | DX: T87.81 Dehiscence of amputation stump (principal) | CPT/HCPCS: 99211 ==

== ENCOUNTER → 2021-11-16 15:57 | Outpatient (BNVA) | payer OTHER, SELFPAY | PROVIDERS: PCP Internal Medicine; Referring Provider Internal Medicine; Visit Provider Surgery | DX: L92.9 Granulomatous disorder of the skin and subcutaneous tissue, unspecified (principal); Z89.512 Acquired absence of left leg below knee | CPT/HCPCS: 17250; 99212 ==

== ENCOUNTER 2021-11-19 19:28 | Emergency (ER) | payer OTHER, SELFPAY ==
--- NOTE | ~2021-11-19 | XR_ITS ---
EXAMINATION: XR TIBIA AND FIBULA, LEFT CLINICAL INFORMATION: Trauma fall COMPARISON: None TECHNIQUE: AP and lateral views of the left tibia and fibula were obtained. FINDINGS: 2 views demonstrate amputation distally. There is no acute bony fracture in the knee or the amputated proximal tib-fib Some mild periosteal change along the very distal aspect of the visualized tibia and fibula. There is no acute bony erosion XR/XR tibia fibula LT 2V IMPRESSION: No acute fracture here. Some mild periosteal change along the visualized inferior most aspect of the knee be related to be a and fibula. No convincing evidence for an acute bony erosion. If osteomyelitis needs to be excluded recommend MRI pre and postcontrast
[2021-11-19 19:46] VITALS: BP 123/67; PULSE 114; RESP 14; TEMP 37.1; O2SAT 98; BMI 25.1
--- NOTE | 2021-11-19 21:20 | ED_ITS ---
HPI - Extremity Injury (Lower) General Chief Complaint: Extremity Injury, Lower Stated Complaint: left leg fell large laceration Time Seen by Provider: 11/19/21 20:11 Source: patient Mode of arrival: ambulatory History of Present Illness HPI Narrative: 36-year-old male with a past medical history of anemia, diabetes, osteomyelitis s/p left BKA in Aug, substance abuse, presenting to the ED complaining left BKA dehiscence s/p mechanical slip and fall on oil [employer] landing directly on stump. denies head trauma or LOC. admits wound reopened. Denies injury to other area. Denies fever MD complaint: leg injury Onset (ago): hour(s) Related Data Home Medications Medication Instructions Recorded Confirmed ferrous sulfate 325 mg (65 mg 325 mg PO DAILY 05/06/20 11/16/21 iron) tablet gabapentin 600 mg tablet 600 mg PO TID 05/06/20 11/16/21 insulin lispro 100 unit/mL 1 sliding scale dose SUBCUT QID 05/06/20 11/16/21 subcutaneous solution (Admelog U-100 Insulin lispro) metformin 500 mg tablet 1,000 mg PO BID 05/06/20 11/16/21 insulin glargine 100 unit/mL (3 20 unit SUBCUT BID 08/04/21 11/16/21 mL) subcutaneous pen (Lantus Solostar U-100 Insulin) pen needle, diabetic 31 gauge x 08/17/21 11/16/21 3/16 (BD Ultra-Fine Mini Pen Needle) Previous Rx's Medication Instructions Recorded crutches (pair of crutches) #1 ea 09/09/21 cephalexin 500 mg capsule 500 mg PO QID 7 Days #28 cap 11/19/21 Allergies Allergy/AdvReac Type Severity Reaction Status Date / Time No Known Allergies Allergy Verified 11/16/21 16:14 [No Known Allergies*] Review of Systems Review of Systems: Constitutional: No Fever, No Chills ENT/Mouth: No Ear Pain, No sore throat, No Rhinorrhea, No Swallowing Difficulty Cardiovascular: No Chest Pain, No SOB Respiratory: No Cough, No Sputum Gastrointestinal: No Nausea, No Vomiting, No Diarrhea, No Constipation, No Abdominal pain Genitourinary: No Dysuria, No Urinary Frequency, No Hematuria, No Flank Pain Musculoskeletal: No joint pain, No Myalgias, No Joint Swelling Skin: + wound dehiscences, No rash Neuro: No Weakness, No Numbness, No Paresthesias, no head trauma, no LOC Yes all other systems are reviewed and are negative [facility] Past Medical History Attestation statement: The following information was validated with the patient. Medical History Anemia Diabetes Diabetic infection of left foot Foot abscess, left Foot osteomyelitis, left History of substance use Hypergranulation Non-healing ulcer Non-healing ulcer of right foot Osteomyelitis Osteomyelitis Surgical History History of appendectomy History of carpal tunnel surgery of left wrist History 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 Family History Family History Mother Breast cancer CVD (cardiovascular disease) Diabetes Cancer Father Diabetes CVD (cardiovascular disease) Social History Social History Household Members: Friend(s) Housing: House Housing Other:: patient states his belongings are in his truck Do you presently have visiting nurse or other home services: No Unable to assess alcohol history related to: Unknown Alcohol intake: former Patient Tobacco Use Status: Current everyday Tobacco user Tobacco use type: Cigarette Cigarette Packs Per Day: 0.5 Cigarettes Per Day: 10 Years Smoked: 30 Second Hand Smoke Exposure: No Substance Use Type: Heroin and IV Drugs Advance Directives: Yes Advance Directives on File: Yes Advance Directives Date on File: 08/05/21 service: No Current occupational status: unemployed Physical Exam Vital Signs: Vital Signs: Last Vital Signs Temp 98.7 F 11/19/21 19:46 Pulse 114 H 11/19/21 19:46 Resp 14 11/19/21 19:46 BP 123/67 11/19/21 19:46 Pulse Ox 98 11/19/21 19:46 BMI result Body Mass Index 25.1 Const: General: cooperative, healthy appearing and no acute distress Or ientation/consciousness: patient oriented x3 Limitations: no limitations HEENT: Head: Yes normal to inspection and Yes atraumatic Ears: hearing grossly normal bilaterally General nose exam: Normal external nose present Face and sinus: Yes normal facial exam Eyes: General: appearance normal, both eyes and all related structures EOM: EOMs intact bilaterally Neck: Neck: Yes normal visual inspection and Yes no meningeal signs Resp: Effort & Inspection: normal respiratory effort and no respiratory distress Cardio: Rate: regular rate Skin: Rashes: no rashes Neuro: General: patient oriented x3, tone normal and no meningeal signs Extrem: Other: please refer to images above, wound opened with surrounding erythema. Bone not visible but superficial. No active drainage. Bleeding controlled. Very tender to palpation. Not warm Course Course Course Narrative: XR tibia fibula LT 2V IMPRESSION: No acute fracture here. Some mild periosteal change along the visualized inferior most aspect of the knee be related to be a and fibula. No convincing evidence for an acute bony erosion. If osteomyelitis needs to be excluded recommend MRI pre and postcontrast > consult to General surgery, Dr. Morrison who recommended Keflex and wet-to-dry dressings and follow up in Dr. Randall office tomorrow. Dr. Randall was contacted will see patient tomorrow in office MDM - Extremity Injury (Lower) MDM Narrative Medical decision making narrative: 36-year-old male with a past medical history of anemia, diabetes, osteomyelitis s/p left BKA in Aug, substance abuse, presenting to the ED complaining left BKA dehiscence s/p mechanical slip and fall on oil [employer] landing directly on stump. on exam tachycardic likely from pain, please refer to images above, NAD/ nontoxic appearing. Will consult General surgery and obtain x-ray Medical Records Attestation: I reviewed the patient's medical records. Lab Data Attestation: I reviewed the patient's lab results. Discharge Plan Discharge Clinical Impression: Dehiscence of wound Patient Disposition: Home, Self-Care Instructions: Acute Wounds (DC), Below the Knee Amputation (DC) Additional Instructions: keep wound dry and clean. Please call your surgeon office in the morning to make an appointment, you need to see him tomorrow. He is aware. Keflex as an antibiotic please take as prescribed. If area begins to look worse, infected, red, there is drainage Essence fever return to the emergency department Prescriptions: New cephalexin 500 mg capsule 500 mg PO QID 7 Days Qty: 28 0RF No Action ferrous sulfate 325 mg (65 mg iron) Tablet 325 mg PO DAILY 0RF metformin 500 mg Tablet 1,000 mg PO BID 0RF gabapentin 600 mg Tablet 600 mg PO TID 0RF insulin lispro [Admelog U-100 Insulin lispro] 100 unit/mL Solution 1 sliding scale dose SUBCUT QID 0RF Protocol: Insulin Correction Scale Less than or equal to 110 ---- Give (units): 0 111 to 150 Give (units): 0 151 to 200 Give (units): 2 201 to 250 Give (units): 4 251 to 300 Give (units): 6 301 to 350 Give (units): 8 Greater than 350 Give (units): 10 Call MD if Blood Glucose > : 350 Lantus Solostar U-100 Insulin 100 unit/mL (3 mL) Insulin Pen 20 unit SUBCUT BID 0RF (DME) pen needle, diabetic [BD Ultra-Fine Mini Pen Needle] 31 gauge x 3/16 needle subcut TID 0RF (DME) pair of crutches Kit See Rx Instructions .Route Qty: 1 0RF Rx Instructions: As directed Referrals: Jose Manuel Randall MD [Physician] - 1 day
== END 2021-11-19 22:15 | disposition home or self-care (01) ==
PROVIDERS: Emergency Provider Student in an Organized Health Care Education/Training Program; PCP Internal Medicine
DX: T87.81 Dehiscence of amputation stump (principal); Y83.5 Amputation of limb(s) as the cause of abnormal reaction of the patient, or of later complication, without mention of misadventure at the time of the procedure; Y92.9 Unspecified place or not applicable; E11.9 Type 2 diabetes mellitus without complications; F11.10 Opioid abuse, uncomplicated; F17.210 Nicotine dependence, cigarettes, uncomplicated; Z91.81 History of falling
CPT/HCPCS: 73590; 99283

== ENCOUNTER → 2021-11-20 13:57 | Outpatient (BNVA) | payer OTHER, SELFPAY | PROVIDERS: PCP Internal Medicine; Referring Provider Internal Medicine; Visit Provider Surgery | DX: T87.81 Dehiscence of amputation stump (principal); Z89.512 Acquired absence of left leg below knee | CPT/HCPCS: 99212 ==

== ENCOUNTER → 2021-11-26 14:48 | Outpatient (BNVA) | payer OTHER, SELFPAY | PROVIDERS: PCP Internal Medicine; Referring Provider Internal Medicine; Visit Provider Surgery | DX: T87.81 Dehiscence of amputation stump (principal); E11.9 Type 2 diabetes mellitus without complications; F17.210 Nicotine dependence, cigarettes, uncomplicated; Z89.512 Acquired absence of left leg below knee | CPT/HCPCS: 99212 ==

== ENCOUNTER 2021-12-09 08:48 | Outpatient (RCR) | payer OTHER, SELFPAY | END 2022-02-22 14:10 | disposition home or self-care (01) | LOC: HO.WCC 08:48 | PROVIDERS: PCP Internal Medicine; Visit Provider Surgery | DX: T87.81 Dehiscence of amputation stump (principal); E11.40 Type 2 diabetes mellitus with diabetic neuropathy, unspecified; F17.210 Nicotine dependence, cigarettes, uncomplicated; Z89.512 Acquired absence of left leg below knee; Z89.421 Acquired absence of other right toe(s) | CPT/HCPCS: 11042; 99212 ==

== ENCOUNTER → 2021-12-14 10:05 | Outpatient (BNVA) | payer OTHER, SELFPAY | PROVIDERS: PCP Internal Medicine; Referring Provider Internal Medicine; Visit Provider Surgery | DX: T87.81 Dehiscence of amputation stump (principal); Z89.512 Acquired absence of left leg below knee | CPT/HCPCS: 99212 ==

== ENCOUNTER → 2022-01-20 14:26 | Outpatient (BNVA) | payer OTHER, SELFPAY | PROVIDERS: PCP Internal Medicine; Referring Provider Internal Medicine; Visit Provider Surgery | DX: T81.30XA Disruption of wound, unspecified, initial encounter (principal) | CPT/HCPCS: 99212 ==

== ENCOUNTER 2022-02-25 21:45 | Emergency (ER) | payer OTHER, SELFPAY ==
[2022-02-25 22:01] VITALS: BP 122/62; PULSE 86; RESP 16; TEMP 36.6; O2SAT 97; BMI 25.1
--- NOTE | 2022-02-25 23:05 | ED_ITS ---
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 Patient tells me that this started at work, he felt like something got in his eye and then since then his eye has been getting progressively more red. He also reports a small bump to his lower eyelid again progressively worsening. Denies painful eye movements, vision changes, fevers, chills, chest pain, shortness of breath, headache or dizziness. MD chief complaint: eye redness and foreign body Onset (ago): day(s) (3) Onset description: gradual Duration: constant Location: left eye Eye Symptoms: burning, redness and foreign body sensation Place: work (gas appliance mechanic ) Severity: moderate If Pain, Quality: burning Associated symptoms: none Treatments Prior to Arrival: none Related Data Home Medications Medication Instructions Recorded Confirmed ferrous sulfate 325 mg (65 mg 325 mg PO DAILY 05/06/20 01/20/22 iron) tablet gabapentin 600 mg tablet 600 mg PO TID 05/06/20 01/20/22 insulin lispro 100 unit/mL 1 sliding scale dose subcut QID 05/06/20 01/20/22 subcutaneous solution (Admelog U-100 Insulin lispro) metformin 500 mg tablet 1,000 mg PO BID 05/06/20 01/20/22 insulin glargine 100 unit/mL (3 20 unit subcut BID 08/04/21 01/20/22 mL) subcutaneous pen (Lantus Solostar U-100 Insulin) pen needle, diabetic 31 gauge x 08/17/21 01/20/22 3/16 (BD Ultra-Fine Mini Pen Needle) Previous Rx's Medication Instructions Recorded crutches (pair of crutches) #1 ea 09/09/21 cephalexin 500 mg capsule 500 mg PO QID 7 days #28 caps 11/19/21 erythromycin 5 mg/gram (0.5 %) eye 0.5 inch ophthalmic (eye) BID #3.5 02/25/22 ointment grams Allergies Allergy/AdvReac Type Severity Reaction Status Date / Time No Known Allergies Allergy Verified 02/25/22 22:01 [No Known Allergies*] Review of Systems Review of Systems: Constitutional : No Weight loss, No Fever, No Chills, No Fatigue, No Malaise ENT/Mouth : No sore throat, No Rhinorrhea Eyes: No Eye Pain, No Swelling, + Redness, + swollen lower eyelid Cardiovascular : No Chest Pain, No SOB, No Dyspnea on Exertion, No Orthopnea, No Edema, No Palpitations Respiratory : No Cough, No Sputum, No Wheezing Gastrointestinal : No Nausea, No Vomiting, No Diarrhea, No Constipation, No abdominal Pain, No Hematochezia, No Melena Genitourinary : No Dysuria, No Urinary Frequency, No Hematuria, Musculoskeletal : No joint pain, No Myalgias, No Joint Swelling Skin : No Skin Lesions, No rash Neuro : No Weakness, No Numbness, No Dizziness, No Headache Psych : No Anxiety/Panic, No Depression All other systems reviewed and are negative Yes all other systems are reviewed and are negative PMFSH Past Medical History Attestation statement: The following information was validated with the patient. Source: old records reviewed and nursing notes reviewed Medical History Anemia Diabetes Diabetic infection of left foot Foot abscess, left Foot osteomyelitis, left History of substance use Hypergranulation Non-healing ulcer Non-healing ulcer of right foot Osteomyelitis Osteomyelitis Wound dehiscence Surgical History History of appendectomy History of carpal tunnel surgery of left wrist History 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 Family History Family History Mother Breast cancer CVD (cardiovascular disease) Diabetes Cancer Father Diabetes CVD (cardiovascular disease) Social History Social History Household Members: Friend(s) Housing: House Housing Other:: patient states his belongings are in his truck Do you presently have visiting nurse or other home services: No Unable to assess alcohol history related to: Unknown Alcohol intake: former Patient Tobacco Use Status: Current everyday Tobacco user Tobacco use type: Cigarette Cigarette Packs Per Day: 0.5 Cigarettes Per Day: 10 Years Smoked: 30 Second Hand Smoke Exposure: No Substance Use Type: Heroin and IV Drugs Advance Directives: Yes Advance Directives on File: Yes Advance Directives Date on File: 08/05/21 service: No Current occupational status: unemployed Physical Exam Vital Signs: Vital Signs: Last Vital Signs Temp 97.8 F 02/25/22 22:01 Pulse 86 02/25/22 22:01 Resp 16 02/25/22 22:01 BP 122/62 02/25/22 22:01 Pulse Ox 97 02/25/22 22:01 O2 Del Method 02/25/22 22:01 BMI result Body Mass Index 25.1 Vital signs Appearance: Alert.? Oriented X3.? No acute distress.? Head: Normocephalic, atraumatic, no step-offs or deformities Eyes: Pupils equal, round and reactive to light.? Extraocular movements intact and pain-free. Slight conjunctival injection to the left eye. There is a stye noted to the left lower lid. CVS: Normal heart rate and rhythm.? Pulses normal.? Respiratory: No respiratory distress.? Breath sounds normal.? Abdomen: Soft and nontender.? Skin: Skin warm and dry.? Normal skin color.? Normal skin turgor.? Extremities: No lower extremity edema.? No calf ttp. 5/5 strength to bilateral upper and lower extremities Neuro: Oriented X 3.? No motor deficit.? No sensory deficit. CN 2-12 intact Course Reevaluation(s) Reevaluation #1: There is slight punctate uptake upon fluorescein staining to the patient's left nasal aspect of I, likely small corneal abrasions. There is also a stye. Patient will be discharged home with erythromycin ointment. Advised to follow up with Ophthalmology. Educated on worrisome signs and symptoms and when to return. Time: 23:34 MDM - Eye Problem MDM Narrative Medical decision making narrative: 230 36 yo m presents to ed w/ redness and fb sensation to left eye and a stye to the left lower eyelid X3 days. Patient works as a gas appliance mechanic. No painful eye movments or changes in vision. PE with side of the left lower lid and slight conjunctival injection to the left side. Plan- tetracaine and fluorescein stain and observe under blue light to rule out corneal abrasion. Suspicion for corneal abrasion, unlikely that this is orbital or periorbital cellulitis, acute closed angle glaucoma, wet macular degeneration. Medical Records Attestation: I reviewed the patient's medical records. Lab Data Attestation: I reviewed the patient's lab results. Critical Care Time Critical Care Time Critical Care Time: No Discharge Plan Discharge Clinical Impression: Corneal abrasion, Angelika Patient Disposition: Home, Self-Care Instructions: Corneal Abrasion (ED) Additional Instructions: Take your medications as prescribed. If you were prescribed antibiotics today, it is important that you take your medication to their entirety, do not skip any doses, do not finish them early. Follow-up with your primary care provider this week. Please follow-up with eye doctor, information below. Return to the emergency department with new or worsening symptoms. Such as fevers, chills, chest pain, shortness of breath, nausea, vomiting, dizziness, he adache, vision changes, lethargy, painful vision, changes in vision, In case of emergency call 911 Prescriptions: New erythromycin 5 mg/gram (0.5 %) ointment 0.5 inch ophthalmic (eye) BID Qty: 3.5 0RF No Action ferrous sulfate 325 mg (65 mg iron) Tablet 325 mg PO DAILY metformin 500 mg Tablet 1,000 mg PO BID gabapentin 600 mg Tablet 600 mg PO TID insulin lispro [Admelog U-100 Insulin lispro] 100 unit/mL Solution 1 sliding scale dose SUBCUT QID Protocol: Insulin Correction Scale Less than or equal to 110 ---- Give (units): 0 111 to 150 Give (units): 0 151 to 200 Give (units): 2 201 to 250 Give (units): 4 251 to 300 Give (units): 6 301 to 350 Give (units): 8 Greater than 350 Give (units): 10 Call if Blood Glucose > : 350 cephalexin 500 mg capsule 500 mg PO QID 7 Days Qty: 28 0RF Lantus Solostar U-100 Insulin 100 unit/mL (3 mL) Insulin Pen 20 unit SUBCUT BID (DME) pen needle, diabetic [BD Ultra-Fine Mini Pen Needle] 31 gauge x 3/16 needle subcut TID (DME) pair of crutches Kit See Rx Instructions .Route Qty: 1 0RF Rx Instructions: As directed Referrals: Jose Manuel Alicea MD [Primary Care Provider] - 2 days Mal Ruiz [Physician] - 1 day Stand Alone Forms: Work/School Release
[2022-02-25] MEDS: Tetracaine HCl/PF 0.5% Oph Sol 4 ML DROPS 3 DROP EYE-BOTH (23:17)
[2022-02-25] MEDS: Fluorescein Sodium STRIP 1 STRIP EYE-BOTH (23:17)
--- NOTE | 2022-02-25 23:47 | PC.NURSE ---
pt a&ox3, vss, eye drops and fluorescein pulled from pyxis and scanned for provider.
== END 2022-02-25 23:50 | disposition home or self-care (01) ==
PROVIDERS: Emergency Provider Emergency Medicine; PCP Internal Medicine
DX: H00.015 Hordeolum externum left lower eyelid (principal); S05.02XA Injury of conjunctiva and corneal abrasion without foreign body, left eye, initial encounter; X58.XXXA Exposure to other specified factors, initial encounter; E11.9 Type 2 diabetes mellitus without complications; Z79.4 Long term (current) use of insulin; F17.210 Nicotine dependence, cigarettes, uncomplicated; Y93.9 Activity, unspecified; Y92.9 Unspecified place or not applicable; Y99.9 Unspecified external cause status
CPT/HCPCS: 99282; 99283

== ENCOUNTER 2022-03-04 23:12 | Emergency (ER) | payer OTHER, SELFPAY ==
[2022-03-04 23:41] VITALS: BP 116/63; PULSE 82; RESP 16; TEMP 37.1; O2SAT 97; BMI 25.1
[2022-03-04 23:50] LABS: MANUAL DIFF FLAG NO
[2022-03-04 23:51] LABS: Basophils Percent Auto 0.5 % (0-2); Eosinophils Absolute Auto 0.1 X10*3/uL (0.0-0.4); Eosinophils Percent Auto 1.9 % (0-4); Hematocrit 31.7 % (42.0-52.0); Hemoglobin 11.6 g/dl (14.0-18.0); Imm Gran Abs Auto 0.01 X10*3/uL (0.00-0.03); Imm Gran Pct Auto 0.2 % (0.0-0.4); Lymphocytes Absolute Auto 2.1 X10*3/uL (1.2-4.9); Mean Corpuscular HGB Conc 36.6 g/dl (31.0-36.0); Mean Corpuscular Volume 81.9 fL (80.0-98.0); Mean Platelet Volume 10.2 fL (9.4-12.4); Monocytes Absolute Auto 0.4 X10*3/uL (0.1-1.2); Monocytes Percent Auto 7.4 % (2-11); Neutrophils Absolute Auto 3.1 x10*3/uL (2.0-8.3); Platelet Count 179 X10*3/uL (160-400); Red Blood Count 3.87 X10*6/uL (4.60-5.80); Red Cell Distribution Width 13.7 % (11.0-16.0); White Blood Count 5.7 X10*3/uL (4.8-10.8)
[2022-03-05 00:21] LABS: Anion Gap 17 (12-20); Blood Urea Nitrogen 22 mg/dL (9-16); Calcium 8.9 mg/dL (8.4-10.2); Carbon Dioxide 25 mmol/L (22-29); Chloride 101 mmol/L (96-108); Creatinine Clr Calc Pharmacy 76.7; Estimated Glomerular Filt Rate 57; Glucose Random 278 mg/dL (60-115); Sodium 138 mmol/L (135-145)
--- NOTE | 2022-03-05 01:39 | ED.SKABFB ---
HPI - Skin/Abscess/Foreign Bdy General Chief complaint: Extremity Problem Stated complaint: cut?/scrape on left arm Time Seen by Provider: 03/05/22 01:06 Source: patient Mode of arrival: ambulatory Limitations: no limitations History of Present Illness HPI narrative: Patient diabetic had a burn on the left forearm 2 weeks now noticed soft tissue swelling for last 1 week which is fluctuant warm to touch no fever or chills Related Data Home Medications Medication Instructions Recorded Confirmed ferrous sulfate 325 mg (65 mg 325 mg PO DAILY 05/06/20 01/20/22 iron) tablet gabapentin 600 mg tablet 600 mg PO TID 05/06/20 01/20/22 insulin lispro 100 unit/mL 1 sliding scale dose subcut QID 05/06/20 01/20/22 subcutaneous solution (Admelog U-100 Insulin lispro) metformin 500 mg tablet 1,000 mg PO BID 05/06/20 01/20/22 insulin glargine 100 unit/mL (3 20 unit subcut BID 08/04/21 01/20/22 mL) subcutaneous pen (Lantus Solostar U-100 Insulin) pen needle, diabetic 31 gauge x 08/17/21 01/20/22 3/16 (BD Ultra-Fine Mini Pen Needle) Previous Rx's Medication Instructions Recorded crutches (pair of crutches) #1 ea 09/09/21 cephalexin 500 mg capsule 500 mg PO QID 7 days #28 caps 11/19/21 erythromycin 5 mg/gram (0.5 %) eye 0.5 inch ophthalmic (eye) BID #3.5 02/25/22 ointment grams cephalexin 500 mg capsule 500 mg PO QID 10 days #40 caps 03/05/22 doxycycline hyclate 100 mg tablet 100 mg PO BID #20 tabs 03/05/22 Allergies Allergy/AdvReac Type Severity Reaction Status Date / Time No Known Allergies Allergy Verified 02/25/22 22:01 [No Known Allergies*] Review of Systems Review of Systems: Yes all other systems are reviewed and are negative PMFSH Past Medical History Medical History Anemia Diabetes Diabetic infection of left foot Foot abscess, left Foot osteomyelitis, left History of substance use Hypergranulation Non-healing ulcer Non-healing ulcer of right foot Osteomyelitis Osteomyelitis Wound dehiscence Surgical History History of appendectomy History of carpal tunnel surgery of left wrist History 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 Family History Family History Mother Breast cancer CVD (cardiovascular disease) Diabetes Cancer Father Diabetes CVD (cardiovascular disease) Social History Social History Household Members: Friend(s) Housing: House Housing Other:: patient states his belongings are in his truck Do you presently have visiting nurse or other home services: No Unable to assess alcohol history related to: Unknown Alcohol intake: former Patient Tobacco Use Status: Current everyday Tobacco user Tobacco use type: Cigarette Cigarette Packs Per Day: 0.5 Cigarettes Per Day: 10 Years Smoked: 30 Second Hand Smoke Exposure: No Substance Use Type: Heroin and IV Drugs Advance Directives: Yes Advance Directives on File: Yes Advance Directives Date on File: 08/05/21 service: No Current occupational status: unemployed Physical Exam Vital Signs: Vital Signs: Last Vital Signs Temp 98.8 F 03/04/22 23:41 Pulse 82 03/04/22 23:41 Resp 16 03/04/22 23:41 BP 116/63 03/04/22 23:41 Pulse Ox 97 03/04/22 23:41 O2 Del Method 03/04/22 23:41 BMI result Body Mass Index 25.1 Const: General: cooperative and healthy appearing Extrem: Elbow/forearm/wrist images: 1. 2 x 2 cm fluctuant swelling clinically abscess MDM - Skin/Abscess/Foreign Bdy Lab Data Attestation: I reviewed the patient's lab results. Result diagrams: 03/04/22 23:44 03/04/22 23:44 Labs: Lab Results 03/04/22 03/04/22 Range/Units 23:44 23:44 WBC 5.7 (4.8-10.8) X10*3/uL RBC 3.87 L (4.60-5.80) X10*6/uL Hgb 11.6 L D (14.0-18.0) g/dl Hct 31.7 L (42.0-52.0) % MCV 81.9 (80.0-98.0) fL MCH 30.0 (27.0-33.0) pg MCHC 36.6 H (31.0-36.0) g/dl RDW 13.7 (11.0-16.0) % Plt Count 179 D (160-400) X10*3/uL MPV 10.2 (9.4-12.4) fL Immature Gran % (Auto) 0.2 (0.0-0.4) % Neut % (Auto) 54.0 (45-73) % Lymph % (Auto) 36.0 (20-40) % [place] % (Auto) 7.4 (2-11) % Eos % (Auto) 1.9 (0-4) % Baso % (Auto) 0.5 (0-2) % Lymph # (Auto) 2.1 (1.2-4.9) X10*3/uL [place] # (Auto) 0.4 (0.1-1.2) X10*3/uL Eos # (Auto) 0.1 (0.0-0.4) X10*3/uL Baso # (Auto) 0.0 (0.0-0.2) X10*3/uL Abs Immat Gran (auto) 0.01 (0.00-0.03) X10*3/uL Absolute Neuts (auto) 3.1 (2.0-8.3) x10*3/uL Absolute Nucleated RBC 0.000 (0.0-0.012) X10*3/uL Nucleated RBC % (auto) 0.0 (0.0-0.2) /100WBC Sodium 138 (135-145) mmol/L Potassium 5.0 (3.3-5.1) mmol/L Chloride 101 (96-108) mmol/L Carbon Dioxide 25 (22-29) mmol/L Anion Gap 17 (12-20) BUN 22 H (9-16) mg/dL Creatinine 1.39 (0.5-1.4) mg/dL Estim Creat Clear Calc 76.7 Estimated GFR 57 Random Glucose 278 H (60-115) mg/dL Calcium 8.9 (8.4-10.2) mg/dL Procedures Abscess I/D Site: upper extremity Side (if applicable): left Local Anesthetic: lidocaine 1% Amount of anesthesia used (mL): 2 Technique: incised with blade Amount of fluid expressed (mL): 2 Sent for culture/gram staining?: No Irrigation: No Packing used?: none Complications: pain Discharge Plan Discharge Clinical Impression: Abscess Patient Disposition: Home, Self-Care Instructions: Abscess Incision and Drainage (DC) Additional Instructions: Local care as advised Take antibiotic as prescribed Follow with PCP if any concerns Prescriptions: New cephalexin 500 mg capsule 500 mg PO QID 10 Days Qty: 40 0RF doxycycline hyclate 100 mg tablet 100 mg PO BID Qty: 20 0RF No Action ferrous sulfate 325 mg (65 mg iron) Tablet 325 mg PO DAILY metformin 500 mg Tablet 1,000 mg PO BID gabapentin 600 mg Tablet 600 mg PO TID insulin lispro [Admelog U-100 Insulin lispro] 100 unit/mL Solution 1 sliding scale dose SUBCUT QID Protocol: Insulin Correction Scale Less than or equal to 110 ---- Give (units): 0 111 to 150 Give (units): 0 151 to 200 Give (units): 2 201 to 250 Give (units): 4 251 to 300 Give (units): 6 301 to 350 Give (units): 8 Greater than 350 Give (units): 10 Call MD if Blood Glucose > : 350 cephalexin 500 mg capsule 500 mg PO QID 7 Days Qty: 28 0RF Lantus Solostar U-100 Insulin 100 unit/mL (3 mL) Insulin Pen 20 unit SUBCUT BID (DME) pen needle, diabetic [BD Ultra-Fine Mini Pen Needle] 31 gauge x 3/16 needle subcut TID erythromycin 5 mg/gram (0.5 %) ointment 0.5 inch ophthalmic (eye) BID Qty: 3.5 0RF (DME) pair of crutches Kit See Rx Instructions .Route Qty: 1 0RF Rx Instructions: As directed Interventions: ED Discharge Assessment Last Done: 03/05/22 02:43 Discharge Date/Time: 03/05/22 02:44
[2022-03-05] MEDS: Lidocaine HCl 1 % MPF 2 ML VIAL INFILTRATI (01:45)
[2022-03-05] MEDS: cephALEXin 500 MG CAPSULE PO (01:45)
--- NOTE | 2022-03-05 01:48 | PC.NURSE ---
lidocaine 1% scanned by RN, given by provider.
== END 2022-03-05 02:44 | disposition home or self-care (01) ==
PROVIDERS: Emergency Provider Internal Medicine; PCP Internal Medicine
DX: L02.414 Cutaneous abscess of left upper limb (principal); F17.210 Nicotine dependence, cigarettes, uncomplicated; F11.10 Opioid abuse, uncomplicated; Z71.6 Tobacco abuse counseling; Z79.899 Other long term (current) drug therapy
CPT/HCPCS: 10060; 36415; 80048; 85025; 99282; 99284

== ENCOUNTER → 2022-03-29 14:16 | Outpatient (BNVA) | payer OTHER, SELFPAY | PROVIDERS: PCP Internal Medicine; Visit Provider Surgery | DX: T81.30XD Disruption of wound, unspecified, subsequent encounter (principal); Z89.512 Acquired absence of left leg below knee | CPT/HCPCS: 99212 ==

== ENCOUNTER 2022-10-05 08:20 | Inpatient (IN) | payer OTHER, SELFPAY ==
[2022-10-05] VITALS (13 sets, daily range): BP systolic 84–136; BP diastolic 48–68; PULSE 80–107; RESP 16–22; TEMP 36.4–37.9; O2SAT 95–98; BMI 27.8; BMI 27.6
--- NOTE | ~2022-10-05 | XR_ITS ---
EXAMINATION: XR CHEST CLINICAL INFORMATION: Cough COMPARISON: 08/17/2021 TECHNIQUE: 2 views of the chest were obtained. FINDINGS: Cardiac silhouette is within normal limits. No focal consolidation, pleural effusion, or pneumothorax. No acute osseous abnormality. XR/XR chest 2V IMPRESSION: Unremarkable examination.
--- NOTE | ~2022-10-05 | CT_ITS ---
EXAMINATION: CT ANKLE WITHOUT CONTRAST, RIGHT CLINICAL INFORMATION: Infection. Evaluate for necrotizing fasciitis, soft tissue emphysema. COMPARISON: Multiple priors, most recent right foot radiographs dated 10/05/2022. TECHNIQUE: Contiguous axial CT images of the right ankle were obtained without contrast. Multiplanar reformats were provided and reviewed. This CT examination was performed using dose optimization techniques as appropriate, variously including the following: *Automated exposure control. *Adjustment of mA and/or kV according to patient size (this includes techniques or standardized protocols for targeted exams where dose is matched to indication/reason for exam; i.e. extremities or head). *Use of iterative reconstruction technique. DOSE: 224 mGy-cm FINDINGS: Redemonstration of transmetatarsal amputations. No acute fracture or dislocation. No significant joint space narrowing or marginal osteophytes. No talar osteochondral lesion. Os trigonum with minimal degenerative change. Along the dorsum of the foot there is prominent subcutaneous edema and stranding, consistent with cellulitis. In the region of the extensor digitorum tendons there are multiple foci of soft tissue emphysema, concerning for necrotizing fasciitis. This extends deep to the level of the 2nd metatarsal base where there are multiple tiny foci of air noted within the intramedullary cavity. Findings likely indicate an associated osteomyelitis. The visualized flexor and extensor tendons are grossly intact, however, evaluation is significantly limited on CT examination. CT/CT ankle RT wo IV con IMPRESSION: 1. Prominent subcutaneous edema and stranding along the dorsum of the foot, consistent with cellulitis. 2. Multiple foci of soft tissue emphysema within the region of the extensor digitorum tendons, concerning for necrotizing fasciitis. This extends deep to the level of the 2nd metatarsal base where there are multiple tiny foci of air noted within the intramedullary cavity. Findings likely indicate an associated osteomyelitis.
--- NOTE | ~2022-10-05 | US_ITS ---
EXAMINATION: NONINVASIVE ASSESSMENT OF THE ARTERIES OF THE RIGHT LOWER EXTREMITIES INCLUDING BILATERAL LOWER EXTREMITY DUPLEX. CLINICAL INFORMATION: Pain and redness, diabetes COMPARISON: Right lower extremity duplex on 11/08/2019 TECHNIQUE: duplex Doppler techniques with wave form analysis and measurement of velocities in the right common femoral, profunda femoral, superficial femoral, popliteal, tibial and peroneal arteries. The study was performed only at rest. FINDINGS: RIGHT LEG Common femoral artery: 138 cm/s, Multiphasic Profunda femoris artery: 105 cm/s, Multiphasic Superficial femoral artery (proximal): 134 cm/s, Multiphasic Superficial femoral artery (mid): 138 cm/s, monophasic Superficial femoral artery (distal): 140 cm/s, monophasic Proximal Popliteal artery: 179 cm/s, monophasic Mid posterior tibial artery: 141 cm/s, monophasic US/US arterial duplex LE RT IMPRESSION: Monophasic waveforms from the mid superficial femoral artery distally suggesting peripheral vascular disease.
--- NOTE | ~2022-10-05 | XR_ITS ---
EXAMINATION: XR FOOT, RIGHT CLINICAL INFORMATION: Evaluate for osteomyelitis. COMPARISON: Right foot radiographs dated 05/06/2020. TECHNIQUE: AP, lateral, and oblique views of the right foot. FINDINGS: Post surgical changes are again seen with resection of the digits the level the distal metatarsals. The distal cortical margins appear intact without definitive new cortical erosive changes. Mild swelling of the soft tissue stump distally with more moderate soft tissue swelling dorsally. A linear radiopaque density is again seen adjacent to the distal/plantar aspect of the second metatarsal without significant change. XR/XR foot RT 2V IMPRESSION: Soft tissue swelling most prominent dorsally without definitive acute underlying osseous abnormality/osteomyelitis.
--- NOTE | 2022-10-05 08:30 | PC.NURSE ---
pt refused the tylenol states gives him nausea
[2022-10-05] MEDS: Ondansetron ODT 4 MG TAB.RAPDIS TRANSLINGU (08:39)
[2022-10-05 08:56] LABS: IDNOW Serial# 6674DD1D; Strep A Nucleic Acid Negative (Negative)
[2022-10-05 08:59] LABS: Hematocrit 27.6 % (42.0-52.0); Hemoglobin 9.7 g/dl (14.0-18.0); Mean Corpuscular HGB Conc 35.1 g/dl (31.0-36.0); Mean Corpuscular Hemoglobin 28.1 pg (27.0-33.0); Red Blood Count 3.45 X10*6/uL (4.60-5.80); Red Cell Distribution Width 13.8 % (11.0-16.0); White Blood Count 12.3 X10*3/uL (4.8-10.8)
[2022-10-05 09:15] LABS: COVID-19 Test Negative (Negative); IDNOW Serial# 08D9AD1C
[2022-10-05 09:22] LABS: Band Neutrophils Percent 5 % (3-5); Lymphocytes Absolute Manual 1.1 X10*3/uL (1.2-4.9); Lymphocytes Percent Manual 9 % (20-40); Monocytes Percent Manual 8 % (2-11); Neutrophils Absolute Manual 10.2 X10*3/uL (2.0-8.3); Neutrophils Percent Manual 78 % (45-73)
[2022-10-05 09:24] LABS: Large Platelet PRESENT; Platelet Estimate SLIGHTLY DECREASED (NORMAL); Platelet Morphology Comment NOTED; RBC Morphology NORMAL
[2022-10-05 09:25] LABS: Mean Platelet Volume 10.9 fL (9.4-12.4); Platelet Count 133 X10*3/uL (160-400)
[2022-10-05 09:58] LABS: Alanine Aminotransferase 7 U/L (0-40); Albumin Level 3.7 g/dL (3.5-5.0); Alkaline Phosphatase 105 U/L (39-117); Anion Gap 18 (12-20); Aspartate Amino Transferase 24 U/L (5-37); Bilirubin Direct 0.7 mg/dL (0.0-0.5); Bilirubin Total 2.6 mg/dL (0.0-1.0); Blood Urea Nitrogen 32 mg/dL (9-16); Calcium 8.3 mg/dL (8.4-10.2); Carbon Dioxide 25 mmol/L (22-29); Chloride 90 mmol/L (96-108); Creatinine Clr Calc Pharmacy 49.4; Estimated Glomerular Filt Rate 32; Glucose Random 780 mg/dL (60-115); Lipase 8 U/L (8-78); Potassium 4.6 mmol/L (3.3-5.1); Sodium 128 mmol/L (135-145); Total Protein 6.6 g/dL (6.5-8.0)
--- NOTE | 2022-10-05 10:17 | ED_ITS ---
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 Noticed BS have been running high despite taking his home medications. Last 2 days he has had vomiting. No abdominal pain, diarrhea, urinary symptoms, fevers, chills. Related Data Home Medications Medication Instructions Recorded Confirmed ferrous sulfate 324 mg (65 mg 324 mg PO DAILY 10/05/22 10/05/22 iron) tablet,delayed release insulin glargine 100 unit/mL (3 25 unit subcut BID 10/05/22 10/05/22 mL) subcutaneous pen (Lantus Solostar U-100 Insulin) insulin lispro 100 unit/mL See Protocol subcut TID 10/05/22 10/05/22 subcutaneous pen metformin 500 mg tablet 1,000 mg PO DAILY 10/05/22 10/05/22 Allergies Allergy/AdvReac Type Severity Reaction Status Date / Time No Known Allergies Allergy Verified 10/05/22 08:32 [No Known Allergies*] Review of Systems Review of Systems: Yes all other systems are reviewed and are negative Constitutional: Constitutional: Reports no additional constitutional complaints, Denies body ache(s), Denies chills, Denies fever(s), Denies headache(s) and Denies weakness Eyes: Eyes: Reports no additional eye complaints and Denies change in vision ENT: Reports system reviewed and no additional complaints, except as documented, Denies dizziness, Denies headache(s), Denies nasal congestion, Denies nasal discharge and Denies neck pain Cardiovascular: Cardiovascular: Reports no additional cardiovascular complaints, Denies chest pain, Denies leg edema and Denies dyspnea Respiratory: Respiratory: Reports no additional respiratory complaints, Denies cough and Denies dyspnea Gastrointestinal: Gastrointestinal: Reports no additional gastrointestinal com plaints, Denies abdominal pain, Denies diarrhea and Reports vomiting Genitourinary: Genitourinary: Denies urinary incontinence Musculoskeletal: Musculoskeletal: Reports no additional musculoskeletal complaints, Denies back pain, Reports arthralgias, Reports joint swelling, Denies neck pain, Denies numbness and Denies tingling Integumentary/Breasts: Skin/Breast: Reports system reviewed and no additional complaints, except as docu, Reports swelling, Reports erythema and Denies rash Neurologic: Reports system reviewed and no additional complaints, except as documented, Denies Abnormal speech present, Denies dizziness, Denies headache(s), Denies numbness, Denies tingling and Denies weakness PMFSH Past Medical History Attestation statement: The following information was validated with the patient. Source: old records reviewed and nursing notes reviewed Medical History Anemia Diabetes Diabetic infection of left foot Foot abscess, left Foot osteomyelitis, left History of substance use Hypergranulation Non-healing ulcer Non-healing ulcer of right foot Osteomyelitis Osteomyelitis Wound dehiscence Surgical History History of appendectomy History of carpal tunnel surgery of left wrist History 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 Family History Family History Mother Breast cancer CVD (cardiovascular disease) Diabetes Cancer Father Diabetes CVD (cardiovascular disease) Social History Social History Household Members: Friend(s) Housing: House Housing Other:: patient states his belongings are in his truck Do you presently have visiting nurse or other home services: No Unable to assess alcohol history related to: Unknown Alcohol intake: never Patient Tobacco Use Status: Current everyday Tobacco user Tobacco use type: Cigarette Cigarette Packs Per Day: 0.5 Cigarettes Per Day: 10 Years Smoked: 30 Smoked in Last 30 Days: Yes Second Hand Smoke Exposure: No Use of substances other than those prescribed or required for medical reasons: No Substance Use Type: Heroin and IV Drugs Advance Directives: Yes Advance Directives on File: Yes Advance Directives Date on File: 08/05/21 service: No Current occupational status: unemployed Physical Exam Vital Signs: Vital Signs: Last Vital Signs Temp 100.2 F 10/05/22 08:28 Pulse 94 10/05/22 18:10 Resp 17 03/28/23 18:10 BP 103/66 10/05/22 18:10 Pulse Ox 95 10/05/22 18:10 O2 Del Method Room Air 10/05/22 18:10 BMI result Body Mass Index 27.8 Const: General: cooperative, healthy appearing, comfortable and no acute distress Orientation/consciousness: patient oriented x3 Limitations: no limitations HEENT: Head: Yes normal to inspection Ears: hearing grossly normal bilaterally General nose exam: Normal external nose present Face and sinus: Yes normal facial exam Mouth: Normal oral and palatal mucosa present Throat: Yes posterior oropharynx normal Eyes: General: appearance normal, both eyes and all related structures Pupils: Equal, round and reactive pupils present Neck: Neck: Yes normal visual inspection Chest: Chest palpation & inspection: normal inspection of the chest Resp: Effort & Inspection: normal respiratory effort Auscultation: clear to auscultation bilaterally Cardio: Rate: regular rate Rhythm: regular rhythm Peripheral pulses: Peripheral pulses 2+ throughout GI: Inspection: Yes normal to inspection Palpation (GI): Soft to palpation and nontender Auscultation: normal bowel sounds Back/Spine/Pelvis: Thoracic/Lumbar Spine: thoracic and lumbar spine normal to inspection Skin: General skin exam: no rashes or lesions noted Neuro: General: patient oriented x3, no focal motor deficits and normal sensation to monofilament Cranial nerves: Yes Equal, round and reactive pupils present Cognition (Neuro): normal cognition Speech: No Abnormal speech present Gait exam (Neuro): Normal gait present Motor exam (neuro): 5/5 motor strength present throughout Extrem: Other: To the right foot/ankle there is swelling/erythema/warmth. 2+ DP/PT pulses. No wound seen General: Yes normal to inspection Course Course Course Narrative: Labs show leukocytosis, SMITHA, hyperglycemia with no evidence of DKA. Patient received IV fluids, insulin Reevaluation(s) Reevaluation #1: 1230-blood pressure 91/40. Tacky mucous members. This is likely secondary dehydration from multiple vomiting episodes at home and not from infection. However, will give NS 30cc/kg and re-assess. I will order the patient's morning dose of Lantus Reevaluation #2: 1400-BP 85 systolic. Patient clinically appears dehydrated. will give 1 additional liter of NS Reevaluation #3: 1600-Systolic BP 90. Patient clinically appears dry. Has received 3700 of normal saline. Lungs are clear. Will give additional 1 L and reassess. I did discuss the patient with the medicine team. They feel that the patient needs additional IV fluids and reassessment of his blood pressure prior to admission. I will involve the audio visual aids director in case the patient needs an ICU bed Additional Reevaluation(s): 1700-the patient was seen at the bedside with Dr. Byers from ICU, patient had a bedside echo which shows a flat IVC with normal EF. Recommend continue IV fluids and reassess blood pressure. Also recommended obtaining CT of the right ankle to eval for gas. Less likely necrotizing fasciitis. Cannot use contrast to rule out abscess due to renal function. Need additional imaging with MRI to rule out osteomyelitis. Blood sugar is trending down. Repeat chemistries show improving renal function, stable potassium, mild elevated CPK. 1800-blood pressure is 100/66. Discussed the case with medicine Rosalinda who accepted admission Medications Administered Discontinued Medications Generic Name Dose Route Start Last Admin Trade Name Freq PRN Reason Stop Dose Admin Sodium Chloride 1,000 mls @ 999 mls/hr 10/05/22 10:15 10/05/22 12:19 Ns IV 10/05/22 11:15 Infused .Q1H1M STA Infusion Piperacillin Sod/Tazobactam 50 mls @ 100 mls/hr 10/05/22 10:15 10/05/22 11:31 Sod 3.375 gm/ Sodium Chloride IV 10/05/22 10:44 Infused ONCE ONE Infusion Sodium Chloride 2,721.54 mls @ 2,721.54 mls/hr 10/05/22 12:22 10/05/22 13:56 Ns 30 ml/kg infuse over 1 hr (2721.54 ml) 10/05/22 13:21 Infused IV Infusion .Q1H STA Sodium Chloride 1,000 mls @ 999 mls/hr 10/05/22 13:59 10/05/22 16:03 Ns IV 10/05/22 14:59 Infused .Q1H1M STA Infusion Vancomycin HCl 2,000 mg in 520 mls @ 260 mls/hr 10/05/22 15:18 10/05/22 16:38 Vancomycin/Ns IV 10/05/22 17:17 260 mls/hr ONCE ONE Administration Sodium Chloride 1,000 mls @ 999 mls/hr 10/05/22 16:33 10/05/22 17:19 Ns IV 10/05/22 17:33 999 mls/hr .Q1H1M STA Administration Insulin Glargine 25 unit 10/05/22 12:23 10/05/22 12:30 Insulin Glargine,Hum.Rec.Anlog 100 Unit/Ml 10 Ml Vial SUBCUT 10/05/22 12:24 25 unit ONCE ONE Administration Insulin Human Regular 10 unit 10/05/22 10:15 10/05/22 10:59 Insulin Regular, Human 100 Unit/Ml 3 Ml Vial IVPUSH 10/05/22 10:16 10 unit ONCE ONE Administration Insulin Human Regular 5 unit 10/05/22 15:30 10/05/22 16:01 Insulin Regular, Human 100 Unit/Ml 3 Ml Vial IVPUSH 10/05/22 15:31 5 unit ONCE ONE Administration Ondansetron HCl 4 mg 10/05/22 08:37 10/05/22 08:39 Ondansetron Odt 4 Mg Tab.Rapdis TRANSLINGU 10/05/22 08:38 4 mg ONCE ONE Administration Ondansetron HCl 4 mg 10/05/22 10:15 10/05/22 10:58 Ondansetron Hcl 4 Mg/2 Ml Vial IVPUSH 10/05/22 10:16 4 mg ONCE ONE Administration Medical Decision Making Medical Decision Making [facility] Narrative: 1015- 37 yo male here with right foot/ankle swelling/erythema/warmth x 5 days now with elevated BS/vomiting last 2 days. On arrival patient with erythema/swelling/warmth of the RLE w/ no open wounds. Patient with reports of vomiting with no focal abdominal pain on exam Patient with low-grade fever, mild tachycardia At this time infection suspected. Antibiotics ordered Patient will need labs, blood cultures, lactic, COVID screen, chest x-ray, x-ray of right ankle/foot Differential Diagnosis Differential Diagnoses: The differential diagnosis associated with the presentation includes Osteomyelitis, DKA Less likely necrotizing fasciitis-pain is not out of proportion, CPK only mildly elevated Admission/Observation Consideration of admission/observation: Escalation of care including ad mission/observation considered See course for discussion Consult Healthcare Provider Management of the patient was discussed with: Hospitalist 1800-Spoke to Dr. Tellez from Medicine who accepted admission. I did consult the audio visual aids director who evaluated the patient at the bedside and does not feel the patient needs ICU level of care Lab Data MDM Lab Attestation statement: I reviewed the patient's lab results. 10/05/22 08:51 10/05/22 08:51 Labs: Lab Results 10/05/22 10/05/22 10/05/22 Range/Units 08:36 08:51 08:51 WBC 12.3 H (4.8-10.8) X10*3/uL RBC 3.45 L (4.60-5.80) X10*6/uL Hgb 9.7 L (14.0-18.0) g/dl Hct 27.6 L (42.0-52.0) % MCV 80.0 (80.0-98.0) fL MCH 28.1 (27.0-33.0) pg MCHC 35.1 (31.0-36.0) g/dl RDW 13.8 (11.0-16.0) % Plt Count 133 L D (160-400) X10*3/uL MPV 10.9 (9.4-12.4) fL Immature Gran % (Auto) Cancelled Neut % (Auto) Cancelled Lymph % (Auto) Cancelled Lyman % (Auto) Cancelled Eos % (Auto) Cancelled Baso % (Auto) Cancelled Lymph # (Auto) Cancelled Lyman # (Auto) Cancelled Eos # (Auto) Cancelled Baso # (Auto) Cancelled Abs Immat Gran (auto) Cancelled Absolute Neuts (auto) Cancelled Absolute Nucleated RBC 0.000 (0.0-0.012) X10*3/uL Nucleated RBC % (auto) 0.0 (0.0-0.2) /100WBC Neutrophils % (Manual) 78 H (45-73) % Band Neutrophils % 5 (3-5) % Lymphocytes % (Manual) 9 L (20-40) % Monocytes % (Manual) 8 (2-11) % Abs Neuts (Manual) 10.2 H (2.0-8.3) X10*3/uL Lymphocytes # (Manual) 1.1 L (1.2-4.9) X10*3/uL Monocytes # (Manual) 1.0 (0.1-1.2) X10*3/uL Platelet Estimate SLIGHTLY DECREASED (NORMAL) Large Platelets PRESENT Plt Morphology Comment NOTED RBC Morphology NORMAL VBG pH (7.32-7.43) VBG pCO2 mmHg VBG pO2 mmHg VBG HCO3 (22-26) mmol/L VBG O2 Saturation % VBG Base Excess mmol/L Sodium 128 L (135-145) mmol/L Potassium 4.6 (3.3-5.1) mmol/L Chloride 90 L (96-108) mmol/L Carbon Dioxide 25 (22-29) mmol/L Anion Gap 18 (12-20) BUN 32 H (9-16) mg/dL Creatinine 2.31 H (0.5-1.4) mg/dL Estim Creat Clear Calc 49.4 Estimated GFR 32 POC Glucose (60-115) mg/dL Random Glucose 780 H* (60-115) mg/dL Osmolality (281-305) mosm/kg Lactic Acid (0.5-2.0) mmol/L Calcium 8.3 L D (8.4-10.2) mg/dL Total Bilirubin 2.6 H (0.0-1.0) mg/dL Direct Bilirubin 0.7 H (0.0-0.5) mg/dL AST 24 (5-37) U/L ALT 7 (0-40) U/L Alkaline Phosphatase 105 (39-117) U/L Total Creatine Kinase (38-174) U/L Total Protein 6.6 (6.5-8.0) g/dL Albumin 3.7 (3.5-5.0) g/dL Lipase 8 (8-78) U/L Urine Color Urine Appearance Urine pH (5.0-9.0) Ur Specific [place] (1.005-1.025) Urine Protein (Neg-Trace) mg/dL Urine Glucose (UA) (Negative) mg/dL Urine Ketones (Negative) mg/dL Urine Blood (Negative) Urine Nitrite (Negative) Ur Leukocyte Esterase (Negative) Urine RBC (0-2) /HPF Urine WBC (0-5) /HPF Ur Squamous Epith Cells (0-2) /HPF Urine Bacteria (None Seen) Hyaline Casts (0-2) /LPF Urine Opiates Screen (Not Detect) Urine Fentanyl Screen (Not Detect) Ur Barbiturates Screen (Not Detect) Ur Phencyclidine Scrn (Not Detect) Ur Amphetamines Screen (Not Detect) U Benzodiazepines Scrn (Not Detect) Urine Cocaine Screen (Not Detect) U Marijuana (THC) Screen (Not Detect) Acetone, Qual (Negative) COVID-19 (MARY KATE) (Negative) COVID-19 Clin Com S. pyogenes GrpA JOHNNA Negative (Negative) 10/05/22 10/05/22 10/05/22 Range/Units 08:51 10:38 10:38 WBC (4.8-10.8) X10*3/uL RBC (4.60-5.80) X10*6/uL Hgb (14.0-18.0) g/dl Hct (42.0-52.0) % MCV (80.0-98.0) fL MCH (27.0-33.0) pg MCHC (31.0-36.0) g/dl RDW (11.0-16.0) % Plt Count (160-400) X10*3/uL MPV (9.4-12.4) fL Immature Gran % (Auto) Neut % (Auto) Lymph % (Auto) Lyman % (Auto) Eos % (Auto) Baso % (Auto) Lymph # (Auto) Lyman # (Auto) Eos # (Auto) Baso # (Auto) Abs Immat Gran (auto) Absolute Neuts (auto) Absolute Nucleated RBC (0.0-0.012) X10*3/uL Nucleated RBC % (auto) (0.0-0.2) /100WBC Neutrophils % (Manual) (45-73) % Band Neutrophils % (3-5) % Lymphocytes % (Manual) (20-40) % Monocytes % (Manual) (2-11) % Abs Neuts (Manual) (2.0-8.3) X10*3/uL Lymphocytes # (Manual) (1.2-4.9) X10*3/uL Monocytes # (Manual) (0.1-1.2) X10*3/uL Platelet Estimate (NORMAL) Large Platelets Plt Morphology Comment RBC Morphology VBG pH (7.32-7.43) VBG pCO2 mmHg VBG pO2 mmHg VBG HCO3 (22-26) mmol/L VBG O2 Saturation % VBG Base Excess mmol/L Sodium (135-145) mmol/L Potassium (3.3-5.1) mmol/L Chloride (96-108) mmol/L Carbon Dioxide (22-29) mmol/L Anion Gap (12-20) BUN (9-16) mg/dL Creatinine (0.5-1.4) mg/dL Estim Creat Clear Calc Estimated GFR POC Glucose (60-115) mg/dL Random Glucose (60-115) mg/dL Osmolality (281-305) mosm/kg Lactic Acid 1.3 (0.5-2.0) mmol/L Calcium (8.4-10.2) mg/dL Total Bilirubin (0.0-1.0) mg/dL Direct Bilirubin (0.0-0.5) mg/dL AST (5-37) U/L ALT (0-40) U/L Alkaline Phosphatase (39-117) U/L Total Creatine Kinase 960 H (38-174) U/L Total Protein (6.5-8.0) g/dL Albumin (3.5-5.0) g/dL Lipase (8-78) U/L Urine Color Urine Appearance Urine pH (5.0-9.0) Ur Specific [place] (1.005-1.025) Urine Protein (Neg-Trace) mg/dL Urine Glucose (UA) (Negative) mg/dL Urine Ketones (Negative) mg/dL Urine Blood (Negative) Urine Nitrite (Negative) Ur Leukocyte Esterase (Negative) Urine RBC (0-2) /HPF Urine WBC (0-5) /HPF Ur Squamous Epith Cells (0-2) /HPF Urine Bacteria (None Seen) Hyaline Casts (0-2) /LPF Urine Opiates Screen (Not Detect) Urine Fentanyl Screen (Not Detect) Ur Barbiturates Screen (Not Detect) Ur Phencyclidine Scrn (Not Detect) Ur Amphetamines Screen (Not Detect) U Benzodiazepines Scrn (Not Detect) Urine Cocaine Screen (Not Detect) U Marijuana (THC) Screen (Not Detect) Acetone, Qual Negative (Negative) COVID-19 (MARY KATE) Negative (Negative) COVID-19 Clin Com See Note S. pyogenes GrpA JOHNNA (Negative) 10/05/22 10/05/22 10/05/22 Range/Units 10:38 10:43 10:54 WBC (4.8-10.8) X10*3/uL RBC (4.60-5.80) X10*6/uL Hgb (14.0-18.0) g/dl Hct (42.0-52.0) % MCV (80.0-98.0) fL MCH (27.0-33.0) pg MCHC (31.0-36.0) g/dl RDW (11.0-16.0) % Plt Count (160-400) X10*3/uL MPV (9.4-12.4) fL Immature Gran % (Auto) Neut % (Auto) Lymph % (Auto) Lyman % (Auto) Eos % (Auto) Baso % (Auto) Lymph # (Auto) Lyman # (Auto) Eos # (Auto) Baso # (Auto) Abs Immat Gran (auto) Absolute Neuts (auto) Absolute Nucleated RBC (0.0-0.012) X10*3/uL Nucleated RBC % (auto) (0.0-0.2) /100WBC Neutrophils % (Manual) (45-73) % Band Neutrophils % (3-5) % Lymphocytes % (Manual) (20-40) % Monocytes % (Manual) (2-11) % Abs Neuts (Manual) (2.0-8.3) X10*3/uL Lymphocytes # (Manual) (1.2-4.9) X10*3/uL Monocytes # (Manual) (0.1-1.2) X10*3/uL Platelet Estimate (NORMAL) Large Platelets Plt Morphology Comment RBC Morphology VBG pH 7.43 (7.32-7.43) VBG pCO2 38 mmHg VBG pO2 69 mmHg VBG HCO3 26 (22-26) mmol/L VBG O2 Saturation 95.0 % VBG Base Excess 2.0 mmol/L Sodium (135-145) mmol/L Potassium (3.3-5.1) mmol/L Chloride (96-108) mmol/L Carbon Dioxide (22-29) mmol/L Anion Gap (12-20) BUN (9-16) mg/dL Creatinine (0.5-1.4) mg/dL Estim Creat Clear Calc Estimated GFR POC Glucose > 600 H* (60-115) mg/dL Random Glucose (60-115) mg/dL Osmolality 315 H (281-305) mosm/kg Lactic Acid (0.5-2.0) mmol/L Calcium (8.4-10.2) mg/dL Total Bilirubin (0.0-1.0) mg/dL Direct Bilirubin (0.0-0.5) mg/dL AST (5-37) U/L ALT (0-40) U/L Alkaline Phosphatase (39-117) U/L Total Creatine Kinase (38-174) U/L Total Protein (6.5-8.0) g/dL Albumin (3.5-5.0) g/dL Lipase (8-78) U/L Urine Color Urine Appearance Urine pH (5.0-9.0) Ur Specific [place] (1.005-1.025) Urine Protein (Neg-Trace) mg/dL Urine Glucose (UA) (Negative) mg/dL Urine Ketones (Negative) mg/dL Urine Blood (Negative) Urine Nitrite (Negative) Ur Leukocyte Esterase (Negative) Urine RBC (0-2) /HPF Urine WBC (0-5) /HPF Ur Squamous Epith Cells (0-2) /HPF Urine Bacteria (None Seen) Hyaline Casts (0-2) /LPF Urine Opiates Screen (Not Detect) Urine Fentanyl Screen (Not Detect) Ur Barbiturates Screen (Not Detect) Ur Phencyclidine Scrn (Not Detect) Ur Amphetamines Screen (Not Detect) U Benzodiazepines Scrn (Not Detect) Urine Cocaine Screen (Not Detect) U Marijuana (THC) Screen (Not Detect) Acetone, Qual (Negative) COVID-19 (MARY KATE) (Negative) COVID-19 Clin Com S. pyogenes GrpA JOHNNA (Negative) 10/05/22 10/05/22 10/05/22 Range/Units 11:05 11:05 12:09 WBC (4.8-10.8) X10*3/uL RBC (4.60-5.80) X10*6/uL Hgb (14.0-18.0) g/dl Hct (42.0-52.0) % MCV (80.0-98.0) fL MCH (27.0-33.0) pg MCHC (31.0-36.0) g/dl RDW (11.0-16.0) % Plt Count (160-400) X10*3/uL MPV (9.4-12.4) fL Immature Gran % (Auto) Neut % (Auto) Lymph % (Auto) Lyman % (Auto) Eos % (Auto) Baso % (Auto) Lymph # (Auto) Lyman # (Auto) Eos # (Auto) Baso # (Auto) Abs Immat Gran (auto) Absolute Neuts (auto) Absolute Nucleated RBC (0.0-0.012) X10*3/uL Nucleated RBC % (auto) (0.0-0.2) /100WBC Neutrophils % (Manual) (45-73) % Band Neutrophils % (3-5) % Lymphocytes % (Manual) (20-40) % Monocytes % (Manual) (2-11) % Abs Neuts (Manual) (2.0-8.3) X10*3/uL Lymphocytes # (Manual) (1.2-4.9) X10*3/uL Monocytes # (Manual) (0.1-1.2) X10*3/uL Platelet Estimate (NORMAL) Large Platelets Plt Morphology Comment RBC Morphology VBG pH (7.32-7.43) VBG pCO2 mmHg VBG pO2 mmHg VBG HCO3 (22-26) mmol/L VBG O2 Saturation % VBG Base Excess mmol/L Sodium (135-145) mmol/L Potassium (3.3-5.1) mmol/L Chloride (96-108) mmol/L Carbon Dioxide (22-29) mmol/L Anion Gap (12-20) BUN (9-16) mg/dL Creatinine (0.5-1.4) mg/dL Estim Creat Clear Calc Estimated GFR POC Glucose 446 H* (60-115) mg/dL Random Glucose (60-115) mg/dL Osmolality (281-305) mosm/kg Lactic Acid (0.5-2.0) mmol/L Calcium (8.4-10.2) mg/dL Total Bilirubin (0.0-1.0) mg/dL Direct Bilirubin (0.0-0.5) mg/dL AST (5-37) U/L ALT (0-40) U/L Alkaline Phosphatase (39-117) U/L Total Creatine Kinase (38-174) U/L Total Protein (6.5-8.0) g/dL Albumin (3.5-5.0) g/dL Lipase (8-78) U/L Urine Color Yellow Urine Appearance Clear Urine pH 5.5 (5.0-9.0) Ur Specific [place] >= 1.030 H (1.005-1.025) Urine Protein 100 (2+) H (Neg-Trace) mg/dL Urine Glucose (UA) >=1000 H (Negative) mg/dL Urine Ketones Negative (Negative) mg/dL Urine Blood Large (3+) H (Negative) Urine Nitrite Negative (Negative) Ur Leukocyte Esterase Negative (Negative) Urine RBC 3-5 H (0-2) /HPF Urine WBC 0-5 (0-5) /HPF Ur Squamous Epith Cells 3-5 (0-2) /HPF Urine Bacteria None Seen (None Seen) Hyaline Casts 0-2 (0-2) /LPF Urine Opiates Screen Not Detected (Not Detect) Urine Fentanyl Screen POSITIVE H (Not Detect) Ur Barbiturates Screen Not Detected (Not Detect) Ur Phencyclidine Scrn Not Detected (Not Detect) Ur Amphetamines Screen Not Detected (Not Detect) U Benzodiazepines Scrn Not Detected (Not Detect) Urine Cocaine Screen Not Detected (Not Detect) U Marijuana (THC) Screen Not Detected (Not Detect) Acetone, Qual (Negative) COVID-19 (MARY KATE) (Negative) COVID-19 Clin Com S. pyogenes GrpA JOHNNA (Negative) 10/05/22 10/05/22 Range/Units 15:24 17:13 WBC (4.8-10.8) X10*3/uL RBC (4.60-5.80) X10*6/uL Hgb (14.0-18.0) g/dl Hct (42.0-52.0) % MCV (80.0-98.0) fL MCH (27.0-33.0) pg MCHC (31.0-36.0) g/dl RDW (11.0-16.0) % Plt Count (160-400) X10*3/uL MPV (9.4-12.4) fL Immature Gran % (Auto) Neut % (Auto) Lymph % (Auto) Lyman % (Auto) Eos % (Auto) Baso % (Auto) Lymph # (Auto) Lyman # (Auto) Eos # (Auto) Baso # (Auto) Abs Immat Gran (auto) Absolute Neuts (auto) Absolute Nucleated RBC (0.0-0.012) X10*3/uL Nucleated RBC % (auto) (0.0-0.2) /100WBC Neutrophils % (Manual) (45-73) % Band Neutrophils % (3-5) % Lymphocytes % (Manual) (20-40) % Monocytes % (Manual) (2-11) % Abs Neuts (Manual) (2.0-8.3) X10*3/uL Lymphocytes # (Manual) (1.2-4.9) X10*3/uL Monocytes # (Manual) (0.1-1.2) X10*3/uL Platelet Estimate (NORMAL) Large Platelets Plt Morphology Comment RBC Morphology VBG pH (7.32-7.43) VBG pCO2 mmHg VBG pO2 mmHg VBG HCO3 (22-26) mmol/L VBG O2 Saturation % VBG Base Excess mmol/L Sodium 134 L (135-145) mmol/L Potassium 5.2 H (3.3-5.1) mmol/L Chloride 101 (96-108) mmol/L Carbon Dioxide 27 (22-29) mmol/L Anion Gap 11 L (12-20) BUN 30 H (9-16) mg/dL Creatinine 1.90 H (0.5-1.4) mg/dL Estim Creat Clear Calc 60.1 Estimated GFR 40 POC Glucose 498 H* (60-115) mg/dL Random Glucose 460 H* (60-115) mg/dL Osmolality (281-305) mosm/kg Lactic Acid (0.5-2.0) mmol/L Calcium 7.8 L D (8.4-10.2) mg/dL Total Bilirubin (0.0-1.0) mg/dL Direct Bilirubin (0.0-0.5) mg/dL AST (5-37) U/L ALT (0-40) U/L Alkaline Phosphatase (39-117) U/L Total Creatine Kinase (38-174) U/L Total Protein (6.5-8.0) g/dL Albumin (3.5-5.0) g/dL Lipase (8-78) U/L Urine Color Urine Appearance Urine pH (5.0-9.0) Ur Specific [place] (1.005-1.025) Urine Protein (Neg-Trace) mg/dL Urine Glucose (UA) (Negative) mg/dL Urine Ketones (Negative) mg/dL Urine Blood (Negative) Urine Nitrite (Negative) Ur Leukocyte Esterase (Negative) Urine RBC (0-2) /HPF Urine WBC (0-5) /HPF Ur Squamous Epith Cells (0-2) /HPF Urine Bacteria (None Seen) Hyaline Casts (0-2) /LPF Urine Opiates Screen (Not Detect) Urine Fentanyl Screen (Not Detect) Ur Barbiturates Screen (Not Detect) Ur Phencyclidine Scrn (Not Detect) Ur Amphetamines Screen (Not Detect) U Benzodiazepines Scrn (Not Detect) Urine Cocaine Screen (Not Detect) U Marijuana (THC) Screen (Not Detect) Acetone, Qual (Negative) COVID-19 (MARY KATE) (Negative) COVID-19 Clin Com S. pyogenes GrpA JOHNNA (Negative) Independent Interpretation I performed an independent interpretation of an: Plain X-Ray Interpretation: I independently reviewed the x-ray and agree with radiologist's report I independently reviewed the EKG and agree with reports of normal sinus rhythm with a rate 89, normal ID, normal QRS, normal QT Radiology Impression Discussion of test interpretation with radiology: I have reviewed the radiologist's reading. Radiologist Impression: [address] [address] XRay Report Signed Patient: Paulo Umana MR#: [id number] : 1985 Acct:[id number] Age/Sex: 37 / M ADM Date: 10/05/22 Loc: .ED Attending Dr: Ordering Physician: Yris Mace MD Date of Service: 10/05/22 Procedure(s): XR chest 2V Accession Number(s): [id number] cc: Yris Mace MD~ EXAMINATION: XR CHEST CLINICAL INFORMATION: Cough COMPARISON: 08/17/2021 TECHNIQUE: 2 views of the chest were obtained. FINDINGS: Cardiac silhouette is within normal limits. No focal consolidation, pleural effusion, or pneumothorax. No acute osseous abnormality. XR/XR chest 2V IMPRESSION: Unremarkable examination. [address] [address] XRay Report Signed Patient: Paulo Umana MR#: [id number] : 1985 Acct:[id number] Age/Sex: 37 / M ADM Date: 10/05/22 Loc: HO.ED Attending Dr: Ordering Physician: Laurel Moran NP Date of Service: 10/05/22 Procedure(s): XR foot RT 2V Accession Number(s): [id number] cc: Laurel Moran NP~ EXAMINATION: XR FOOT, RIGHT CLINICAL INFORMATION: Evaluate for osteomyelitis.? COMPARISON: Right foot radiographs dated 05/06/2020.? TECHNIQUE: AP, lateral, and oblique views of the right foot. FINDINGS: Post surgical changes are again seen with resection of the digits the level the distal metatarsals. The distal cortical margins appear intact without definitive new cortical erosive changes. Mild swelling of the soft tissue stump distally with more moderate soft tissue swelling dorsally. A linear radiopaque density is again seen adjacent to the distal/plantar aspect of the second metatarsal without significant change.? XR/XR foot RT 2V IMPRESSION: Soft tissue swelling most prominent dorsally without definitive acute underlying osseous abnormality/osteomyelitis. Critical Care Time Critical Care Time Critical Care Time: Yes Total Critical Care Time: 90 Attestation: Multiple re-evaluations for blood pressure, management of hypotension, managem ent of hyperglycemia, discussion with audio visual aids director and medicine team Discharge Plan Discharge Clinical Impression: SMITHA (acute kidney injury), Leukocytosis, Hyperglycemia, Cellulitis of foot, right Patient Disposition: Admitted As Inpatient
--- NOTE | 2022-10-05 10:45 | ECG_ITS ---
Test Reason : tachycardia Blood Pressure : / mmHG Vent. Rate : 089 BPM Atrial Rate : 089 BPM P-R Int : 124 ms QRS Dur : 074 ms QT Int : 350 ms P-R-T Axes : 070 -21 033 degrees QTc Int : 425 ms Normal sinus rhythm Normal ECG When compared with ECG of 16-JUL-2018 22:23, No significant change was found Referred By: Laurel Thomas Electronically Signed By:DEBRA BERGER
[2022-10-05 10:50] LABS: VBG HCO3 26 mmol/L (22-26); VBG pCO2 38 mmHg; VBG pH 7.43 (7.32-7.43); VBG pO2 69 mmHg
[2022-10-05 10:50] LABS: Venous Blood Gas Refer to POC result
[2022-10-05] MEDS: 0.9 % Sodium Chloride 1,000 ML 999 ML IV ×3 (10:56→17:19)
[2022-10-05 10:57] LABS: Lactic Acid 1.3 mmol/L (0.5-2.0)
[2022-10-05] MEDS: ondansetron HCL 4 MG/2 ML VIAL IVPUSH (10:58)
[2022-10-05] MEDS: Piperacillin Sodium/Tazobactam 3.375 GM in 0.9 % Sodium Chloride 50 ML IV (10:58)
[2022-10-05] MEDS: Insulin Regular, Human 100 UNIT/ML 3 ML VIAL 10 UNIT IVPUSH (10:59)
[2022-10-05 11:03] LABS: Glucose, Whole Blood > 600 mg/dL (60-115)
[2022-10-05 11:07] LABS: Acetone, serum QL Negative (Negative)
[2022-10-05 11:24] LABS: Appearance Urine Clear; Color Urine Yellow; Glucose Urine UA >=1000 mg/dL (Negative); Leukocyte Esterase Urine Negative (Negative); Nitrite Urine Negative (Negative); PH 5.5 (5.0-9.0); Specific Gravity - Urine >= 1.030 (1.005-1.025); UMIC TRIGGER UACC YES; Urine Blood Large (3+) (Negative); Urine Ketones Negative (Negative); Urine Protein 100 (2+) mg/dL (Neg-Trace)
[2022-10-05 11:41] LABS: Bacteria Urine None Seen (None Seen); Hyaline Casts Urine 0-2 /LPF (0-2); WBC Urine 0-5 /HPF (0-5)
[2022-10-05 11:42] LABS: Amphetamine Screen Urine Not Detected (Not Detect); Barbiturates, Urine Not Detected (Not Detect); Benzodiazepines Screen Urine Not Detected (Not Detect); Cannabinoid Screen Urine Not Detected (Not Detect); Cocaine Screen Urine Not Detected (Not Detect); Fentanyl, urine POSITIVE (Not Detect); Opiate Screen Urine Not Detected (Not Detect); Phencyclidine Screen Urine Not Detected (Not Detect)
[2022-10-05 12:13] LABS: Glucose, Whole Blood 446 mg/dL (60-115)
--- NOTE | 2022-10-05 12:23 | PC.NURSE ---
sepsis fluids ordered following low MAP/BP after 1st liter 0.9NS given- per Laurel, will order sepsis fluids now, 2,721cc - given that as total to include 1st liter given - total fluids given 2,721
[2022-10-05] MEDS: Insulin Glargine,Hum.rec.anlog 100 UNIT/ML 10 ML VIAL 25 UNIT SUBCUT (12:30)
[2022-10-05] MEDS: 0.9 % Sodium Chloride 2,721.54 ML 2721.54 ML IV (12:32)
[2022-10-05 15:28] LABS: Glucose, Whole Blood 498 mg/dL (60-115)
[2022-10-05] MEDS: Insulin Regular, Human 100 UNIT/ML 3 ML VIAL IVPUSH ×2 (16:01→19:39)
[2022-10-05 17:34] LABS: Osmolality, Serum 315 mosm/kg (281-305)
[2022-10-05 17:49] LABS: Anion Gap 11 (12-20); Blood Urea Nitrogen 30 mg/dL (9-16); Calcium 7.8 mg/dL (8.4-10.2); Carbon Dioxide 27 mmol/L (22-29); Chloride 101 mmol/L (96-108); Creatinine Clr Calc Pharmacy 60.1; Estimated Glomerular Filt Rate 40; Glucose Random 460 mg/dL (60-115); Potassium 5.2 mmol/L (3.3-5.1); Sodium 134 mmol/L (135-145)
--- NOTE | 2022-10-05 18:26 | PM.IMHP ---
History of Present Illness Date of Service: 10/05/22 Chief Complaint: Leg pain A 37 years old male with PMh of IDDM, substance abuse on methadone, Hx OM post Lt BKA, Rt transmetatarsal amp who presents to the hospital with RLE pain and swelling. The patient report worsening pain, resdness over the last week or so with no reported injuries or wounds. His blood sugar has been running too high and he was taking his meds but for the last 2 days he got nausea and vomiting and couldnt keep anything in his stomach. report low grade fever and chills. no chest pain, palpitation, SOB, change in bowel habit or urinary symptoms. In ED XR was not conclusive about OM so CT scan ordered and pending at time of admission. Review of Systems Review of Systems: Yes all other systems are reviewed and are negative [facility] Medical History Anemia Diabetes Diabetic infection of left foot Foot abscess, left Foot osteomyelitis, left History of substance use Hypergranulation Non-healing ulcer Non-healing ulcer of right foot Osteomyelitis Osteomyelitis Wound dehiscence Family History Mother Breast cancer CVD (cardiovascular disease) Diabetes Cancer Father Diabetes CVD (cardiovascular disease) Surgical History History of appendectomy History of carpal tunnel surgery of left wrist History 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 Social History Household Members: Friend(s) Housing: House Housing Other:: patient states his belongings are in his truck Do you presently have visiting nurse or other home services: No Unable to assess alcohol history related to: Unknown Alcohol intake: never Patient Tobacco Use Status: Current everyday Tobacco user Tobacco use type: Cigarette Cigarette Packs Per Day: 0.5 Cigarettes Per Day: 10 Years Smoked: 30 Smoked in Last 30 Days: Yes Second Hand Smoke Exposure: No Use of substances other than those prescribed or required for medical reasons: No Substance Use Type: Heroin and IV Drugs Advance Directives: Yes Advance Directives on File: Yes Advance Directives Date on File: 08/05/21 service: No Current occupational status: unemployed Meds Allergies Allergy/AdvReac Type Severity Reaction Status Date / Time No Known Allergies Allergy Verified 10/05/22 08:32 [No Known Allergies*] Active Medications: Current Medications Pharmacy Consult (Consult Rx Perform Med Rec) 1 each MISCELLANE ONCE PRN PRN Reason: Consult order Home Medications Medication Instructions Recorded Confirmed Last Taken Type ferrous sulfate 324 mg (65 mg 324 mg PO DAILY 10/05/22 10/05/22 Unknown History iron) tablet,delayed release insulin glargine 100 unit/mL (3 25 unit subcut BID 10/05/22 10/05/22 Unknown History mL) subcutaneous pen (Lantus Solostar U-100 Insulin) insulin lispro 100 unit/mL See Protocol subcut TID 10/05/22 10/05/22 Unknown History subcutaneous pen metformin 500 mg tablet 1,000 mg PO DAILY 10/05/22 10/05/22 Unknown History Physical Exam Vital Signs and Narrative: Vital Signs: Last Vital Signs Temp 100.2 F 10/05/22 08:28 Pulse 94 10/05/22 18:10 Resp 17 10/05/22 18:10 BP 103/66 10/05/22 18:10 Pulse Ox 95 10/05/22 18:10 O2 Del Method Room Air 10/05/22 18:10 BMI result Body Mass Index 27.8 Const: Other: Constitutional : Awake, interactive, not in distress Neck : Normal inspection, Supple Cardiovascular : RRR, no JVP, no lower extremity edema Respiratory : good bilateral air entry, no crackles, wheezes or rhonchi Gastrointestinal: soft, lax, Normal bowel sounds, Non tender Skin : Warm, Dry Skeletal: Lt BKA, Rt transmetatarsal amp with swelling and tenderness on the dorsal part. no pus Neurological : Alert & oriented x3, No focal deficit Results Labs 10/05/22 08:51 10/05/22 17:13 Labs: Laboratory Results - last 24 hr 10/05/22 10/05/22 10/05/22 08:36 08:51 08:51 MCV 80.0 MCH 28.1 MCHC 35.1 RDW 13.8 Plt Count 133 L D MPV 10.9 Immature Gran % (Auto) Cancelled Neut % (Auto) Cancelled Lymph % (Auto) Cancelled [place] % (Auto) Cancelled Eos % (Auto) Cancelled Baso % (Auto) Cancelled Lymph # (Auto) Cancelled [place] # (Auto) Cancelled Eos # (Auto) Cancelled Baso # (Auto) Cancelled Abs Immat Gran (auto) Cancelled Absolute Neuts (auto) Cancelled Absolute Nucleated RBC 0.000 Nucleated RBC % (auto) 0.0 Neutrophils % (Manual) 78 H Band Neutrophils % 5 Lymphocytes % (Manual) 9 L Monocytes % (Manual) 8 Abs Neuts (Manual) 10.2 H Lymphocytes # (Manual) 1.1 L Monocytes # (Manual) 1.0 Platelet Estimate SLIGHTLY DECREASED Large Platelets PRESENT Plt Morphology Comment NOTED RBC Morphology NORMAL VBG pH VBG pCO2 VBG pO2 VBG HCO3 VBG O2 Saturation VBG Base Excess Anion Gap 18 Estim Creat Clear Calc 49.4 Estimated GFR 32 POC Glucose Random Glucose 780 H* Osmolality Lactic Acid Calcium 8.3 L D Total Bilirubin 2.6 H Direct Bilirubin 0.7 H AST 24 ALT 7 Alkaline Phosphatase 105 Total Creatine Kinase Total Protein 6.6 Albumin 3.7 Lipase 8 Urine Color Urine Appearance Urine pH Ur Specific [place] Urine Protein Urine Glucose (UA) Urine Ketones Urine Blood Urine Nitrite Ur Leukocyte Esterase Urine RBC Urine WBC Ur Squamous Epith Cells Urine Bacteria Hyaline Casts Urine Opiates Screen Urine Fentanyl Screen Ur Barbiturates Screen Ur Phencyclidine Scrn Ur Amphetamines Screen U Benzodiazepines Scrn Urine Cocaine Screen U Marijuana (THC) Screen Acetone, Qual COVID-19 (MARY KATE) COVID-19 Clin Com S. pyogenes GrpA JOHNNA Negative 10/05/22 10/05/22 10/05/22 08:51 10:38 10:38 MCV MCH MCHC RDW Plt Count MPV Immature Gran % (Auto) Neut % (Auto) Lymph % (Auto) [place] % (Auto) Eos % (Auto) Baso % (Auto) Lymph # (Auto) [place] # (Auto) Eos # (Auto) Baso # (Auto) Abs Immat Gran (auto) Absolute Neuts (auto) Absolute Nucleated RBC Nucleated RBC % (auto) Neutrophils % (Manual) Band Neutrophils % Lymphocytes % (Manual) Monocytes % (Manual) Abs Neuts (Manual) Lymphocytes # (Manual) Monocytes # (Manual) Platelet Estimate Large Platelets Plt Morphology Comment RBC Morphology VBG pH VBG pCO2 VBG pO2 VBG HCO3 VBG O2 Saturation VBG Base Excess Anion Gap Estim Creat Clear Calc Estimated GFR POC Glucose Random Glucose Osmolality Lactic Acid 1.3 Calcium Total Bilirubin Direct Bilirubin AST ALT Alkaline Phosphatase Total Creatine Kinase 960 H Total Protein Albumin Lipase Urine Color Urine Appearance Urine pH Ur Specific [place] Urine Protein Urine Glucose (UA) Urine Ketones Urine Blood Urine Nitrite Ur Leukocyte Esterase Urine RBC Urine WBC Ur Squamous Epith Cells Urine Bacteria Hyaline Casts Urine Opiates Screen Urine Fentanyl Screen Ur Barbiturates Screen Ur Phencyclidine Scrn Ur Amphetamines Screen U Benzodiazepines Scrn Urine Cocaine Screen U Marijuana (THC) Screen Acetone, Qual Negative COVID-19 (MARY KATE) Negative COVID-19 Clin Com See Note S. pyogenes GrpA JOHNNA 10/05/22 10/05/22 10/05/22 10:38 10:43 10:54 MCV MCH MCHC RDW Plt Count MPV Immature Gran % (Auto) Neut % (Auto) Lymph % (Auto) [place] % (Auto) Eos % (Auto) Baso % (Auto) Lymph # (Auto) [place] # (Auto) Eos # (Auto) Baso # (Auto) Abs Immat Gran (auto) Absolute Neuts (auto) Absolute Nucleated RBC Nucleated RBC % (auto) Neutrophils % (Manual) Band Neutrophils % Lymphocytes % (Manual) Monocytes % (Manual) Abs Neuts (Manual) Lymphocytes # (Manual) Monocytes # (Manual) Platelet Estimate Large Platelets Plt Morphology Comment RBC Morphology VBG pH 7.43 VBG pCO2 38 VBG pO2 69 VBG HCO3 26 VBG O2 Saturation 95.0 VBG Base Excess 2.0 Anion Gap Estim Creat Clear Calc Estimated GFR POC Glucose > 600 H* Random Glucose Osmolality 315 H Lactic Acid Calcium Total Bilirubin Direct Bilirubin AST ALT Alkaline Phosphatase Total Creatine Kinase Total Protein Albumin Lipase Urine Color Urine Appearance Urine pH Ur Specific [place] Urine Protein Urine Glucose (UA) Urine Ketones Urine Blood Urine Nitrite Ur Leukocyte Esterase Urine RBC Urine WBC Ur Squamous Epith Cells Urine Bacteria Hyaline Casts Urine Opiates Screen Urine Fentanyl Screen Ur Barbiturates Screen Ur Phencyclidine Scrn Ur Amphetamines Screen U Benzodiazepines Scrn Urine Cocaine Screen U Marijuana (THC) Screen Acetone, Qual COVID-19 (MARY KATE) COVID-19 Clin Com S. pyogenes GrpA JOHNNA 10/05/22 10/05/22 10/05/22 11:05 11:05 12:09 MCV MCH MCHC RDW Plt Count MPV Immature Gran % (Auto) Neut % (Auto) Lymph % (Auto) [place] % (Auto) Eos % (Auto) Baso % (Auto) Lymph # (Auto) [place] # (Auto) Eos # (Auto) Baso # (Auto) Abs Immat Gran (auto) Absolute Neuts (auto) Absolute Nucleated RBC Nucleated RBC % (auto) Neutrophils % (Manual) Band Neutrophils % Lymphocytes % (Manual) Monocytes % (Manual) Abs Neuts (Manual) Lymphocytes # (Manual) Monocytes # (Manual) Platelet Estimate Large Platelets Plt Morphology Comment RBC Morphology VBG pH VBG pCO2 VBG pO2 VBG HCO3 VBG O2 Saturation VBG Base Excess Anion Gap Estim Creat Clear Calc Estimated GFR POC Glucose 446 H* Random Glucose Osmolality Lactic Acid Calcium Total Bilirubin Direct Bilirubin AST ALT Alkaline Phosphatase Total Creatine Kinase Total Protein Albumin Lipase Urine Color Yellow Urine Appearance Clear Urine pH 5.5 Ur Specific [place] >= 1.030 H Urine Protein 100 (2+) H Urine Glucose (UA) >=1000 H Urine Ketones Negative Urine Blood Large (3+) H Urine Nitrite Negative Ur Leukocyte Esterase Negative Urine RBC 3-5 H Urine WBC 0-5 Ur Squamous Epith Cells 3-5 Urine Bacteria None Seen Hyaline Casts 0-2 Urine Opiates Screen Not Detected Urine Fentanyl Screen POSITIVE H Ur Barbiturates Screen Not Detected Ur Phencyclidine Scrn Not Detected Ur Amphetamines Screen Not Detected U Benzodiazepines Scrn Not Detected Urine Cocaine Screen Not Detected U Marijuana (THC) Screen Not Detected Acetone, Qual COVID-19 (MARY KATE) COVID-19 Clin Com S. pyogenes GrpA JOHNNA 10/05/22 10/05/22 15:24 17:13 MCV MCH MCHC RDW Plt Count MPV Immature Gran % (Auto) Neut % (Auto) Lymph % (Auto) [place] % (Auto) Eos % (Auto) Baso % (Auto) Lymph # (Auto) [place] # (Auto) Eos # (Auto) Baso # (Auto) Abs Immat Gran (auto) Absolute Neuts (auto) Absolute Nucleated RBC Nucleated RBC % (auto) Neutrophils % (Manual) Band Neutrophils % Lymphocytes % (Manual) Monocytes % (Manual) Abs Neuts (Manual) Lymphocytes # (Manual) Monocytes # (Manual) Platelet Estimate Large Platelets Plt Morphology Comment RBC Morphology VBG pH VBG pCO2 VBG pO2 VBG HCO3 VBG O2 Saturation VBG Base Excess Anion Gap 11 L Estim Creat Clear Calc 60.1 Estimated GFR 40 POC Glucose 498 H* Random Glucose 460 H* Osmolality Lactic Acid Calcium 7.8 L D Total Bilirubin Direct Bilirubin AST ALT Alkaline Phosphatase Total Creatine Kinase Total Protein Albumin Lipase Urine Color Urine Appearance Urine pH Ur Specific [place] Urine Protein Urine Glucose (UA) Urine Ketones Urine Blood Urine Nitrite Ur Leukocyte Esterase Urine RBC Urine WBC Ur Squamous Epith Cells Urine Bacteria Hyaline Casts Urine Opiates Screen Urine Fentanyl Screen Ur Barbiturates Screen Ur Phencyclidine Scrn Ur Amphetamines Screen U Benzodiazepines Scrn Urine Cocaine Screen U Marijuana (THC) Screen Acetone, Qual COVID-19 (MARY KATE) COVID-19 Clin Com S. pyogenes GrpA JOHNNA Imaging Radiologist's Impressions: Impressions Chest X-Ray 10/05/22 09:00 IMPRESSION: Unremarkable examination. Foot X-Ray 10/05/22 10:31 IMPRESSION: Soft tissue swelling most prominent dorsally without definitive acute underlying osseous abnormality/osteomyelitis. Assessment and Plan (1) SMITHA (acute kidney injury): Status: Acute (2) Leukocytosis: Status: Acute (3) Hyperglycemia: Status: Acute (4) Cellulitis of foot, right: Status: Acute Plan A 37 years old male with PMh of IDDM, substance abuse on methadone, Hx OM post Lt BKA, Rt transmetatarsal amp who presents to the hospital with RLE pain and swelling. RLE cellulitis w concern of OM Pending CT scan of ankle cultures pending IV Vanco and Zosyn ID consult Hyperglycemia in IDDM Increase Lantus to 30 bid SSI diabetic diet Hyperkalemia Lokelma given SMITHA likely prerenal as its improving with IVF continue IVF follow BMP DVT PPx Lovenox The patient will need 2 overnight hospital stay for eval of possible OM pending ID eval Time Spent With Patient Time: Total time managing care of this patient today ____ minutes. Quality Stroke Does the patient have a stroke diagnosis?: No VTE Prior VTE?: No VTE Risk Level:: Medical - moderate - high VTE Device Contraindication: Treatment Not Indicated VTE Drug Contraindication: N/A - Med Ordered
--- NOTE | 2022-10-05 18:52 | PC.NURSE ---
after pts visit with his gf pt was more lethargic, coughing, as this lyric writer entered the room pt appeared to place something under his thigh. this RN questioned pt to use of drugs, if he had paraphenalia or drugs on his person at this time. pt denies. informed his tox screen was positive fro fentanyl. informed security of suspicions of pt with substance on him with intent to search pt
--- NOTE | 2022-10-05 19:23 | PC.NURSE ---
SECURITY AT BEDSIDE TO SEARCH PT BELONGINGS
[2022-10-05 19:28] LABS: Glucose, Whole Blood 379 mg/dL (60-115)
[2022-10-05] MEDS: Piperacillin Sodium/Tazobactam 2.25 GM in 0.9 % Sodium Chloride 50 ML IV ×2 (19:36→23:13)
[2022-10-05] MEDS: Sodium Zirconium Cyclosilicate 5 GM POWD.PACK PO (19:36)
[2022-10-05] MEDS: Sodium Chloride 0.45 % 1,000 ML 100 ML IVCONT (19:42)
[2022-10-05 20:27] LABS: Glucose, Whole Blood 294 mg/dL (60-115)
--- NOTE | 2022-10-05 20:31 | PC.NURSE ---
LATE ENTRY- pt medicated according to sep. pt calm and cooperative. this rn called nurse to nurse report to corey ferrara.
[2022-10-05 21:34] LABS: Partial Thromboplastin Time 26.9 SEC (26.0-36.4)
[2022-10-05 21:42] LABS: Fibrinogen > 700 MG/DL (259-690)
[2022-10-05] MEDS: Insulin Glargine,Hum.rec.anlog 100 UNIT/ML 10 ML VIAL 30 UNIT SUBCUT (22:52)
[2022-10-05] MEDS: Enoxaparin Sodium 40 MG/0.4 ML SYRINGE SUBCUT (22:52)
[2022-10-06] MEDS: Piperacillin Sodium/Tazobactam 2.25 GM in 0.9 % Sodium Chloride 50 ML IV ×2 (05:24→12:19)
[2022-10-06] MEDS: Sodium Chloride 0.45 % 1,000 ML 100 ML IVCONT ×2 (05:56→15:03)
[2022-10-06] MEDS: vancomycin HCL 750 MG in 0.9 % Sodium Chloride 250 ML 265 MG IV ×2 (05:56→17:09)
[2022-10-06 06:41] LABS: Hematocrit 24.1 % (42.0-52.0); Hemoglobin 8.1 g/dl (14.0-18.0); Mean Corpuscular HGB Conc 33.6 g/dl (31.0-36.0); Mean Corpuscular Hemoglobin 27.9 pg (27.0-33.0); Mean Corpuscular Volume 83.1 fL (80.0-98.0); Mean Platelet Volume 11.7 fL (9.4-12.4); Platelet Count 103 X10*3/uL (160-400); Red Cell Distribution Width 14.3 % (11.0-16.0); White Blood Count 8.8 X10*3/uL (4.8-10.8)
[2022-10-06 06:56] LABS: Anion Gap 12 (12-20); Blood Urea Nitrogen 34 mg/dL (9-16); Calcium 7.8 mg/dL (8.4-10.2); Carbon Dioxide 24 mmol/L (22-29); Chloride 102 mmol/L (96-108); Estimated Glomerular Filt Rate 39; Glucose Random 261 mg/dL (60-115); Potassium 4.4 mmol/L (3.3-5.1); Sodium 134 mmol/L (135-145)
[2022-10-06 07:42] VITALS: BP 114/58; PULSE 91; RESP 24; TEMP 37.7; O2SAT 92
[2022-10-06 08:38] LABS: Glucose, Whole Blood 241 mg/dL (60-115)
[2022-10-06] MEDS: 0.9 % Sodium Chloride Flush 3 ML SYRINGE IVFLUSH ×3 (08:52→21:31)
[2022-10-06] MEDS: Insulin Glargine,Hum.rec.anlog 100 UNIT/ML 10 ML VIAL 30 UNIT SUBCUT ×2 (08:52→21:30)
--- NOTE | 2022-10-06 10:22 | MHC.CLN ---
NUTRITION INCREASED DIETARY KCALS TO DIABETIC 2000 KCALS TO BETTER MEET ESTIMATED ENERGY NEEDS.
--- NOTE | 2022-10-06 10:50 | PM.CNGS ---
History of Present Illness Consult details Consult date: 10/06/22 Reason for consult: wound care Narrative: Very complex 37-year-old gentleman with a history of diabetes had undergone transmetatarsal amputation of the right foot back in 2019. He has also undergone left BKA. He appears to be doing relatively well. He reports that the right foot became extremely edematous over the last 4 days. He was uncomfortable and subsequently presented to the hospital. He now presents to us for vascular evaluation. Review of Systems Review of Systems: Yes all other systems are reviewed and are negative Constitutional: Constitutional: Reports no additional constitutional complaints ENT: Reports Normal hearing present Cardiovascular: Cardiovascular: Denies chest pain, Denies chest pain at rest, Denies chest pain with activity and Denies pedal edema Respiratory: Respiratory: Denies cough Gastrointestinal: Gastrointestinal: Denies abdominal pain Musculoskeletal: Musculoskeletal: Denies abnormal gait, Denies muscle cramps and Denies radiating pain into limb Integumentary/Breasts: Skin/Breast: Denies skin ulcer and Denies wounds Neurologic: Reports Normal hearing present and Denies abnormal gait Psychiatric: Psychiatric: Reports no additional psychiatric complaints PMFSH Past Medical History Medical History Anemia Diabetes Diabetic infection of left foot Foot abscess, left Foot osteomyelitis, left History of substance use Hypergranulation Non-healing ulcer Non-healing ulcer of right foot Osteomyelitis Osteomyelitis Wound dehiscence Family History Family History Mother Breast cancer CVD (cardiovascular disease) Diabetes Cancer Father Diabetes CVD (cardiovascular disease) Surgical History Surgical History History of appendectomy History of carpal tunnel surgery of left wrist History 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 Social History Social History Household Members: Significant Other and Children Housing: Apartment Housing Other:: patient states his belongings are in his truck Do you presently have visiting nurse or other home services: No Unable to assess alcohol history related to: Unknown Alcohol intake: never Patient Tobacco Use Status: Current everyday Tobacco user Tobacco use type: Cigarette Cigarette Packs Per Day: 0.5 Cigarettes Per Day: 10 Years Smoked: 30 e-Cigarette/Vaping Use: Never Used Second Hand Smoke Exposure: No Substance Use Type: Heroin and IV Drugs Advance Directives Date on File: 08/05/21 service: No Current occupational status: unemployed Meds Allergies Allergy/AdvReac Type Severity Reaction Status Date / Time No Known Allergies Allergy Verified 10/05/22 08:32 [No Known Allergies*] Active Medications: Current Medications Acetaminophen (Acetaminophen 325 Mg Tablet) 650 mg PO Q6H PRN PRN Reason: Pain, Mild (Pain Scale 1-3) Enoxaparin Sodium (Enoxaparin Sodium 40 Mg/0.4 Ml Syringe) 40 mg SUBCUT Q24H [facility] Last Admin: 10/05/22 22:52 Dose: 40 mg Glucose (Glucose Gel 15 Gm Gel..Gram.) 15 gm PO Q15M PRN; Protocol PRN Reason: per Hypoglycemia Standing Ord. Sodium Chloride (Sodium Chloride 0.45 %) 1,000 mls @ 100 mls/hr IVCONT .Q10H [facility] Last Admin: 10/06/22 05:56 Dose: 100 mls/hr Piperacillin Sod/Tazobactam (Sod 2.25 gm/ Sodium Chloride) 50 mls @ 100 mls/hr IV Q6H [facility] Last Infusion: 10/06/22 05:57 Dose: Infused Vancomycin HCl 750 mg/ Sodium (Chloride) 265 mls @ 265 mls/hr IV Q12H [facility] Last Infusion: 10/06/22 09:01 Dose: Infused Dextrose (D10) 250 mls @ 750 mls/hr IV Q15M PRN; Protocol PRN Reason: per Hypoglycemia Standing Ord. Insulin Glargine (Insulin Glargine,Hum.Rec.Anlog 100 Unit/Ml 10 Ml Vial) 30 unit SUBCUT BID [facility] Last Admin: 10/06/22 08:52 Dose: 30 unit Insulin Human Lispro (Insulin Lispro 100 Unit/Ml 3 Ml Vial) 0 unit SUBCUT QIDACHS [facility]; Protocol Morphine Sulfate (Morphine Sulfate 4 Mg/Ml Cartridge) 4 mg IVPUSH Q4H PRN; Protocol PRN Reason: Pain, Severe (Pain Scale 7-10) Ondansetron HCl (Ondansetron Hcl 4 Mg/2 Ml Vial) 4 mg IVPUSH Q8H PRN PRN Reason: Nausea and Vomiting Pharmacy Consult (Consult Rx Perform Med Rec) 1 each MISCELLANE ONCE PRN PRN Reason: Consult order Pharmacy Consult (Consult Rx Vancomycin Dosing) 1 each MISCELLANE DAILY PRN PRN Reason: Consult order Sodium Chloride (0.9 % Sodium Chloride Flush 3 Ml Syringe) 3 ml IVFLUSH QSHIFT [facility] Last Admin: 10/06/22 08:52 Dose: 3 ml Home Medications Medication Instructions Recorded Confirmed Last Taken Type ferrous sulfate 324 mg (65 mg 324 mg PO DAILY 10/05/22 10/05/22 Unknown History iron) tablet,delayed release insulin glargine 100 unit/mL (3 25 unit subcut BID 10/05/22 10/05/22 Unknown History mL) subcutaneous pen (Lantus Solostar U-100 Insulin) insulin lispro 100 unit/mL See Protocol subcut TID 10/05/22 10/05/22 Unknown History subcutaneous pen metformin 500 mg tablet 1,000 mg PO DAILY 10/05/22 10/05/22 Unknown History Physical Exam Vital Signs: Vital Signs: Last Vital Signs Temp 99.9 F 10/06/22 07:42 Pulse 91 10/06/22 07:42 Resp 24 H 10/06/22 07:42 BP 114/58 L 10/06/22 07:42 Pulse Ox 92 10/06/22 07:42 O2 Del Method Nasal Cannula 10/06/22 07:42 O2 Flow Rate 2 10/06/22 07:42 BMI result Body Mass Index 27.6 Const: General: cooperative, healthy appearing and comfortable Orientation/consciousness: oriented to person, oriented to place and oriented to time HEENT: Head: Yes normal to inspection Neck: Neck: Yes normal visual inspection Carotids: no bruits Chest: Chest palpation & inspection: normal inspection of the chest Resp: Effort & Inspection: normal respiratory effort and able to speak in complete sentences Auscultation: clear to auscultation bilaterally, no crackles, no rales, no rhonchi and no wheezes Cardio: Other: Right side DP signal Rate: regular rate Rhythm: regular rhythm Heart sounds: S1 normal heart sound present and S2 normal heart sound present Bruits: no carotid bruits Peripheral pulses: Peripheral pulses 2+ throughout GI: Inspection: Yes normal to inspection Skin: Other: Right transmetatarsal amputation appears edematous. There is no fluctuant collection is noted. Wounds: amputation site (Left BKA well-healed) Hair: normal Neuro: General: oriented to person, oriented to place and oriented to time Cranial nerves: Yes CN's II-XII intact bilaterally and Yes Normal hearing present Cognition (Neuro): normal cognition Motor exam (neuro): 5/5 motor strength present throughout Extrem: Other: venous exam: No significant superficial varicosities or spider telangiectasias, minimal edema General: No clubbing, No cyanosis and No edema Psych: Appearance: grossly normal Mental Status: mental status grossly normal Speech and movement: Normal speech and movement present Results Labs 10/06/22 05:51 10/06/22 05:51 Labs: Abnormal lab results 10/05/22 10/05/22 10/05/22 Range/Units 10:38 10:38 10:54 RBC (4.60-5.80) X10*6/uL Hgb (14.0-18.0) g/dl Hct (42.0-52.0) % Plt Count (160-400) X10*3/uL Fibrinogen (259-690) MG/DL Sodium (135-145) mmol/L Potassium (3.3-5.1) mmol/L Anion Gap (12-20) BUN (9-16) mg/dL Creatinine (0.5-1.4) mg/dL POC Glucose > 600 H* (60-115) mg/dL Random Glucose (60-115) mg/dL Osmolality 315 H (281-305) mosm/kg Calcium (8.4-10.2) mg/dL Total Creatine Kinase 960 H (38-174) U/L Ur Specific [place] (1.005-1.025) Urine Protein (Neg-Trace) mg/dL Urine Glucose (UA) (Negative) mg/dL Urine Blood (Negative) Urine RBC (0-2) /HPF Urine Fentanyl Screen (Not Detect) 10/05/22 10/05/22 10/05/22 Range/Units 11:05 11:05 12:09 RBC (4.60-5.80) X10*6/uL Hgb (14.0-18.0) g/dl Hct (42.0-52.0) % Plt Count (160-400) X10*3/uL Fibrinogen (259-690) MG/DL Sodium (135-145) mmol/L Potassium (3.3-5.1) mmol/L Anion Gap (12-20) BUN (9-16) mg/dL Creatinine (0.5-1.4) mg/dL POC Glucose 446 H* (60-115) mg/dL Random Glucose (60-115) mg/dL Osmolality (281-305) mosm/kg Calcium (8.4-10.2) mg/dL Total Creatine Kinase (38-174) U/L Ur Specific [place] >= 1.030 H (1.005-1.025) Urine Protein 100 (2+) H (Neg-Trace) mg/dL Urine Glucose (UA) >=1000 H (Negative) mg/dL Urine Blood Large (3+) H (Negative) Urine RBC 3-5 H (0-2) /HPF Urine Fentanyl Screen POSITIVE H (Not Detect) 10/05/22 10/05/22 10/05/22 Range/Units 15:24 17:13 19:24 RBC (4.60-5.80) X10*6/uL Hgb (14.0-18.0) g/dl Hct (42.0-52.0) % Plt Count (160-400) X10*3/uL Fibrinogen (259-690) MG/DL Sodium 134 L (135-145) mmol/L Potassium 5.2 H (3.3-5.1) mmol/L Anion Gap 11 L (12-20) BUN 30 H (9-16) mg/dL Creatinine 1.90 H (0.5-1.4) mg/dL POC Glucose 498 H* 379 H* (60-115) mg/dL Random Glucose 460 H* (60-115) mg/dL Osmolality (281-305) mosm/kg Calcium 7.8 L D (8.4-10.2) mg/dL Total Creatine Kinase (38-174) U/L Ur Specific [place] (1.005-1.025) Urine Protein (Neg-Trace) mg/dL Urine Glucose (UA) (Negative) mg/dL Urine Blood (Negative) Urine RBC (0-2) /HPF Urine Fentanyl Screen (Not Detect) 10/05/22 10/05/22 10/06/22 Range/Units 19:37 20:23 05:51 RBC 2.90 L (4.60-5.80) X10*6/uL Hgb 8.1 L (14.0-18.0) g/dl Hct 24.1 L (42.0-52.0) % Plt Count 103 L (160-400) X10*3/uL Fibrinogen > 700 H (259-690) MG/DL Sodium (135-145) mmol/L Potassium (3.3-5.1) mmol/L Anion Gap (12-20) BUN (9-16) mg/dL Creatinine (0.5-1.4) mg/dL POC Glucose 294 H (60-115) mg/dL Random Glucose (60-115) mg/dL Osmolality (281-305) mosm/kg Calcium (8.4-10.2) mg/dL Total Creatine Kinase (38-174) U/L Ur Specific [place] (1.005-1.025) Urine Protein (Neg-Trace) mg/dL Urine Glucose (UA) (Negative) mg/dL Urine Blood (Negative) Urine RBC (0-2) /HPF Urine Fentanyl Screen (Not Detect) 10/06/22 10/06/22 Range/Units 05:51 08:16 RBC (4.60-5.80) X10*6/uL Hgb (14.0-18.0) g/dl Hct (42.0-52.0) % Plt Count (160-400) X10*3/uL Fibrinogen (259-690) MG/DL Sodium 134 L (135-145) mmol/L Potassium (3.3-5.1) mmol/L Anion Gap (12-20) BUN 34 H (9-16) mg/dL Creatinine 1.92 H (0.5-1.4) mg/dL POC Glucose 241 H (60-115) mg/dL Random Glucose 261 H (60-115) mg/dL Osmolality (281-305) mosm/kg Calcium 7.8 L (8.4-10.2) mg/dL Total Creatine Kinase (38-174) U/L Ur Specific [place] (1.005-1.025) Urine Protein (Neg-Trace) mg/dL Urine Glucose (UA) (Negative) mg/dL Urine Blood (Negative) Urine RBC (0-2) /HPF Urine Fentanyl Screen (Not Detect) Short CBC 10/06/22 Range/Units 05:51 WBC 8.8 (4.8-10.8) X10*3/uL Hgb 8.1 L (14.0-18.0) g/dl Hct 24.1 L (42.0-52.0) % Plt Count 103 L (160-400) X10*3/uL BMP 10/05/22 10/06/22 17:13 05:51 Sodium 134 L 134 L Potassium 5.2 H 4.4 Chloride 101 102 Carbon Dioxide 27 24 BUN 30 H 34 H Creatinine 1.90 H 1.92 H Calcium 7.8 L D 7.8 L Cardiac Enzymes 10/05/22 Range/Units 10:38 Total Creatine Kinase 960 H (38-174) U/L Urine 10/05/22 Range/Units 11:05 Urine Color Yellow Urine Appearance Clear Urine pH 5.5 (5.0-9.0) Ur Specific [place] >= 1.030 H (1.005-1.025) Urine Protein 100 (2+) H (Neg-Trace) mg/dL Urine Glucose (UA) >=1000 H (Negative) mg/dL All other labs normal. Imaging Additional studies: CT scan concerning for necrotizing fasciitis Assessment and Plan (1) S/P transmetatarsal amputation of foot: Status: Acute Plan Patient has edematous right foot. Concerning for collection. There is no underlying collection noted on CT scan. I do not appreciate any fluctuance as well. Will allow this to declare itself. At the current time patient is afebrile and does not have a white count. Will obtain noninvasive testing. We will continue to monitor his status closely with you. Thank you for allowing us to assist in his care. Time Spent With Patient Time: Total time managing care of this patient today ____ minutes. Procedures Date of Service Date of Service: 10/06/22
--- NOTE | 2022-10-06 11:01 | MHC.CM.PN ---
Addendum entered by Ana Ramos 10/06/22 11:17: DP to be determined once treatment plan is known. Original Note: Male 37 DX N/V Leg pain. He lives with his 15 yr old son in a Hotel. He has a L BKA with Prosthesis. Rt foot TMA. Surgical consult with Dr Mendoza. Pat may need area of fluid collection (r foot) drained in the OR. Patient is concerned re living situation of his son. GF stayed with the last PM. CM instructed Pt to call [facility] to speak with guidance detail manager re housing while father is hospitalized. Contacted the Director of CM to confirm no further resources. CM will follow.
--- NOTE | 2022-10-06 11:09 | HO.PM.IMPN ---
Subjective Subjective Date of Service: 10/06/22 Interval History: RLE pain and swelling ENT Ears, Nose, Mouth, and Throat: Reports Normal hearing present Neurologic Neurologic: Reports Normal hearing present Physical Exam Vital Signs: Vital Signs: Last Vital Signs Temp 99.9 F 10/06/22 07:42 Pulse 91 10/06/22 07:42 Resp 24 H 10/06/22 07:42 BP 114/58 L 10/06/22 07:42 Pulse Ox 92 10/06/22 07:42 O2 Del Method Nasal Cannula 10/06/22 07:42 O2 Flow Rate 2 10/06/22 07:42 BMI result Body Mass Index 27.6 Const: General: cooperative, healthy appearing and comfortable Orientation/consciousness: oriented to person, oriented to place and oriented to time HEENT: Head: Yes normal to inspection Neck: Neck: Yes normal visual inspection Carotids: no bruits Chest: Chest palpation & inspection: normal inspection of the chest Resp: Effort & Inspection: normal respiratory effort and able to speak in complete sentences Auscultation: clear to auscultation bilaterally, no crackles, no rales, no rhonchi and no wheezes Cardio: Other: Right side DP signal Rate: regular rate Rhythm: regular rhythm Heart sounds: S1 normal heart sound present and S2 normal heart sound present Bruits: no carotid bruits Peripheral pulses: Peripheral pulses 2+ throughout GI: Inspection: Yes normal to inspection Skin: Other: Right transmetatarsal amputation appears edematous. There is no fluctuant collection is noted. Wounds: amputation site (Left BKA well-healed) Hair: normal Neuro: General: oriented to person, oriented to place and oriented to time Cranial nerves: Yes CN's II-XII intact bilaterally and Yes Normal hearing present Cognition (Neuro): normal cognition Motor exam (neuro): 5/5 motor strength present throughout Extrem: Other: venous exam: No significant superficial varicosities or spider telangiectasias, minimal edema General: No clubbing, No cyanosis and No edema Psych: Appearance: grossly normal Mental Status: mental status grossly normal Speech and movement: Normal speech and movement present Objective Data Active Medications Acetaminophen (Acetaminophen 325 Mg Tablet) 650 mg PO Q6H PRN PRN Reason: Pain, Mild (Pain Scale 1-3) Enoxaparin Sodium (Enoxaparin Sodium 40 Mg/0.4 Ml Syringe) 40 mg SUBCUT Q24H [facility] Last Admin: 10/05/22 22:52 Dose: 40 mg Documented By: CUBA Glucose (Glucose Gel 15 Gm Gel..Gram.) 15 gm PO Q15M PRN; Protocol PRN Reason: per Hypoglycemia Standing Ord. Sodium Chloride (Sodium Chloride 0.45 %) 1,000 mls @ 100 mls/hr IVCONT .Q10H [facility] Last Admin: 10/06/22 05:56 Dose: 100 mls/hr Documented By: CUBA Piperacillin Sod/Tazobactam (Sod 2.25 gm/ Sodium Chloride) 50 mls @ 100 mls/hr IV Q6H [facility] Last Infusion: 10/06/22 05:57 Dose: 0 mls/hr Documented By: CUBA Vancomycin HCl 750 mg/ Sodium (Chloride) 265 mls @ 265 mls/hr IV Q12H [facility] Last Infusion: 10/06/22 09:01 Dose: 0 mls/hr Documented By: NILDA Dextrose (D10) 250 mls @ 750 mls/hr IV Q15M PRN; Protocol PRN Reason: per Hypoglycemia Standing Ord. Insulin Glargine (Insulin Glargine,Hum.Rec.Anlog 100 Unit/Ml 10 Ml Vial) 30 unit SUBCUT BID [facility] Last Admin: 10/06/22 08:52 Dose: 30 unit Documented By: NILDA Insulin Human Lispro (Insulin Lispro 100 Unit/Ml 3 Ml Vial) 0 unit SUBCUT QIDACHS [facility]; Protocol Morphine Sulfate (Morphine Sulfate 4 Mg/Ml Cartridge) 4 mg IVPUSH Q4H PRN; Protocol PRN Reason: Pain, Severe (Pain Scale 7-10) Ondansetron HCl (Ondansetron Hcl 4 Mg/2 Ml Vial) 4 mg IVPUSH Q8H PRN PRN Reason: Nausea and Vomiting Pharmacy Consult (Consult Rx Perform Med Rec) 1 each MISCELLANE ONCE PRN PRN Reason: Consult order Pharmacy Consult (Consult Rx Vancomycin Dosing) 1 each MISCELLANE DAILY PRN PRN Reason: Consult order Sodium Chloride (0.9 % Sodium Chloride Flush 3 Ml Syringe) 3 ml IVFLUSH QSHIFT [facility] Last Admin: 10/06/22 08:52 Dose: 3 ml Documented By: NILDA Labs 10/06/22 05:51 10/06/22 05:51 Labs: Laboratory Results - last 24 hr 10/05/22 10/05/22 10/05/22 10:38 10:38 11:05 MCV MCH MCHC RDW Plt Count MPV Absolute Nucleated RBC Nucleated RBC % (auto) APTT Fibrinogen Anion Gap Estim Creat Clear Calc Estimated GFR POC Glucose Random Glucose Osmolality 315 H Calcium Total Creatine Kinase 960 H Urine Color Yellow Urine Appearance Clear Urine pH 5.5 Ur Specific [place] >= 1.030 H Urine Protein 100 (2+) H Urine Glucose (UA) >=1000 H Urine Ketones Negative Urine Blood Large (3+) H Urine Nitrite Negative Ur Leukocyte Esterase Negative Urine RBC 3-5 H Urine WBC 0-5 Ur Squamous Epith Cells 3-5 Urine Bacteria None Seen Hyaline Casts 0-2 Urine Opiates Screen Urine Fentanyl Screen Ur Barbiturates Screen Ur Phencyclidine Scrn Ur Amphetamines Screen U Benzodiazepines Scrn Urine Cocaine Screen U Marijuana (THC) Screen 10/05/22 10/05/22 10/05/22 11:05 12:09 15:24 MCV MCH MCHC RDW Plt Count MPV Absolute Nucleated RBC Nucleated RBC % (auto) APTT Fibrinogen Anion Gap Estim Creat Clear Calc Estimated GFR POC Glucose 446 H* 498 H* Random Glucose Osmolality Calcium Total Creatine Kinase Urine Color Urine Appearance Urine pH Ur Specific [place] Urine Protein Urine Glucose (UA) Urine Ketones Urine Blood Urine Nitrite Ur Leukocyte Esterase Urine RBC Urine WBC Ur Squamous Epith Cells Urine Bacteria Hyaline Casts Urine Opiates Screen Not Detected Urine Fentanyl Screen POSITIVE H Ur Barbiturates Screen Not Detected Ur Phencyclidine Scrn Not Detected Ur Amphetamines Screen Not Detected U Benzodiazepines Scrn Not Detected Urine Cocaine Screen Not Detected U Marijuana (THC) Screen Not Detected 10/05/22 10/05/22 10/05/22 17:13 19:24 19:37 MCV MCH MCHC RDW Plt Count MPV Absolute Nucleated RBC Nucleated RBC % (auto) APTT 26.9 Fibrinogen > 700 H Anion Gap 11 L Estim Creat Clear Calc 60.1 Estimated GFR 40 POC Glucose 379 H* Random Glucose 460 H* Osmolality Calcium 7.8 L D Total Creatine Kinase Urine Color Urine Appearance Urine pH Ur Specific [place] Urine Protein Urine Glucose (UA) Urine Ketones Urine Blood Urine Nitrite Ur Leukocyte Esterase Urine RBC Urine WBC Ur Squamous Epith Cells Urine Bacteria Hyaline Casts Urine Opiates Screen Urine Fentanyl Screen Ur Barbiturates Screen Ur Phencyclidine Scrn Ur Amphetamines Screen U Benzodiazepines Scrn Urine Cocaine Screen U Marijuana (THC) Screen 10/05/22 10/06/22 10/06/22 20:23 05:51 05:51 MCV 83.1 MCH 27.9 MCHC 33.6 RDW 14.3 Plt Count 103 L MPV 11.7 Absolute Nucleated RBC 0.000 Nucleated RBC % (auto) 0.0 APTT Fibrinogen Anion Gap 12 Estim Creat Clear Calc 55.0 Estimated GFR 39 POC Glucose 294 H Random Glucose 261 H Osmolality Calcium 7.8 L Total Creatine Kinase Urine Color Urine Appearance Urine pH Ur Specific [place] Urine Protein Urine Glucose (UA) Urine Ketones Urine Blood Urine Nitrite Ur Leukocyte Esterase Urine RBC Urine WBC Ur Squamous Epith Cells Urine Bacteria Hyaline Casts Urine Opiates Screen Urine Fentanyl Screen Ur Barbiturates Screen Ur Phencyclidine Scrn Ur Amphetamines Screen U Benzodiazepines Scrn Urine Cocaine Screen U Marijuana (THC) Screen 10/06/22 08:16 MCV MCH MCHC RDW Plt Count MPV Absolute Nucleated RBC Nucleated RBC % (auto) APTT Fibrinogen Anion Gap Estim Creat Clear Calc Estimated GFR POC Glucose 241 H Random Glucose Osmolality Calcium Total Creatine Kinase Urine Color Urine Appearance Urine pH Ur Specific [place] Urine Protein Urine Glucose (UA) Urine Ketones Urine Blood Urine Nitrite Ur Leukocyte Esterase Urine RBC Urine WBC Ur Squamous Epith Cells Urine Bacteria Hyaline Casts Urine Opiates Screen Urine Fentanyl Screen Ur Barbiturates Screen Ur Phencyclidine Scrn Ur Amphetamines Screen U Benzodiazepines Scrn Urine Cocaine Screen U Marijuana (THC) Screen Microbiology Microbiology Results: Microbiology 10/05/22 10:42 Blood Culture - Preliminary Blood - Venous Staphylococcus species 10/05/22 10:38 Blood Culture - Preliminary Blood - Venous Staphylococcus species Assessment and Plan (1) Cellulitis of foot, right: Status: Acute Plan 37 years old male with PMh of IDDM, opiate dependence, Hx OM post Lt BKA, Rt transmetatarsal amp who presented to the hospital with RLE pain and swelling. right TMA site cellulitis and osteomyelitis due to DM complicated by staph bacteremia CT with air vascular appreciated - more likely collection, necfascitis less likely, check arterial duplex, possible bedside intervention 10/07/22 IV Vanco and Zosyn ID eval Hyperglycemia in IDDM Increased Lantus to 30 bid SSI diabetic diet Hyperkalemia Lokelma given, resolved SMITHA improving with IVF continue IVF follow BMP DVT PPx Lovenox full code reason for continued hospitalization:bacteremia Time Spent With Patient Time: Total time managing care of this patient today ____ minutes. Quality Stroke Does the patient have a stroke diagnosis?: No VTE Prior VTE?: No VTE Risk Level:: Medical - moderate - high VTE Device Contraindication: Treatment Not Indicated VTE Drug Contraindication: N/A - Med Ordered
[2022-10-06 11:35] LABS: Glucose, Whole Blood 353 mg/dL (60-115)
[2022-10-06] MEDS: Insulin Lispro 100 UNIT/ML 3 ML VIAL SUBCUT ×3 (12:19→21:31)
[2022-10-06 15:26] VITALS: BP 102/55; PULSE 88; RESP 18; TEMP 37; O2SAT 92
[2022-10-06 16:23] LABS: Glucose, Whole Blood 164 mg/dL (60-115)
--- NOTE | 2022-10-06 16:46 | W.PM.IDCN ---
History of Present Illness Data of Consult Service Date: 10/06/22 Requesting physician: Suresh Rahman Primary Care Provider: Jose Manuel Alicea MD HPI Reason for consult: right lower extremity redness He has redness and pain RLE This started three days ago. He denies injection drug use. He has staph aureus blood. Review of Systems Review of Systems: Yes all other systems are reviewed and are negative PMFSH Past Medical History Medical History Anemia Diabetes Diabetic infection of left foot Foot abscess, left Foot osteomyelitis, left History of substance use Hypergranulation Non-healing ulcer Non-healing ulcer of right foot Osteomyelitis Osteomyelitis Wound dehiscence Family History Family History Mother Breast cancer CVD (cardiovascular disease) Diabetes Cancer Father Diabetes CVD (cardiovascular disease) Family history: reviewed and not pertinent Surgical History Surgical History History of appendectomy History of carpal tunnel surgery of left wrist History 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 Social History Social History Household Members: Significant Other and Children Housing: Apartment Housing Other:: patient states his belongings are in his truck Do you presently have visiting nurse or other home services: No Unable to assess alcohol history related to: Unknown Alcohol intake: never Patient Tobacco Use Status: Current everyday Tobacco user Tobacco use type: Cigarette Cigarette Packs Per Day: 0.5 Cigarettes Per Day: 10 Years Smoked: 30 e-Cigarette/Vaping Use: Never Used Second Hand Smoke Exposure: No Substance Use Type: Heroin and IV Drugs Advance Directives Date on File: 08/05/21 service: No Current occupational status: unemployed Meds Allergies Allergy/AdvReac Type Severity Reaction Status Date / Time No Known Allergies Allergy Verified 10/05/22 08:32 [No Known Allergies*] Active Medications: Current Medications Acetaminophen (Acetaminophen 325 Mg Tablet) 650 mg PO Q6H PRN PRN Reason: Pain, Mild (Pain Scale 1-3) Enoxaparin Sodium (Enoxaparin Sodium 40 Mg/0.4 Ml Syringe) 40 mg SUBCUT Q24H [facility] Last Admin: 10/05/22 22:52 Dose: 40 mg Glucose (Glucose Gel 15 Gm Gel..Gram.) 15 gm PO Q15M PRN; Protocol PRN Reason: per Hypoglycemia Standing Ord. Sodium Chloride (Sodium Chloride 0.45 %) 1,000 mls @ 100 mls/hr IVCONT .Q10H [facility] Last Admin: 10/06/22 15:03 Dose: 100 mls/hr Piperacillin Sod/Tazobactam (Sod 2.25 gm/ Sodium Chloride) 50 mls @ 100 mls/hr IV Q6H [facility] Last Infusion: 10/06/22 15:09 Dose: Infused Vancomycin HCl 750 mg/ Sodium (Chloride) 265 mls @ 265 mls/hr IV Q12H [facility] Last Infusion: 10/06/22 09:01 Dose: Infused Dextrose (D10) 250 mls @ 750 mls/hr IV Q15M PRN; Protocol PRN Reason: per Hypoglycemia Standing Ord. Insulin Glargine (Insulin Glargine,Hum.Rec.Anlog 100 Unit/Ml 10 Ml Vial) 30 unit SUBCUT BID [facility] Last Admin: 10/06/22 08:52 Dose: 30 unit Insulin Human Lispro (Insulin Lispro 100 Unit/Ml 3 Ml Vial) 0 unit SUBCUT QIDACHS [facility]; Protocol Last Admin: 10/06/22 12:19 Dose: 10 unit Morphine Sulfate (Morphine Sulfate 4 Mg/Ml Cartridge) 4 mg IVPUSH Q4H PRN; Protocol PRN Reason: Pain, Severe (Pain Scale 7-10) Ondansetron HCl (Ondansetron Hcl 4 Mg/2 Ml Vial) 4 mg IVPUSH Q8H PRN PRN Reason: Nausea and Vomiting Pharmacy Consult (Consult Rx Perform Med Rec) 1 each MISCELLANE ONCE PRN PRN Reason: Consult order Pharmacy Consult (Consult Rx Vancomycin Dosing) 1 each MISCELLANE DAILY PRN PRN Reason: Consult order Sodium Chloride (0.9 % Sodium Chloride Flush 3 Ml Syringe) 3 ml IVFLUSH QSHIFT [facility] Last Admin: 10/06/22 15:08 Dose: 3 ml Home Medications Medication Instructions Recorded Confirmed Last Taken Type ferrous sulfate 324 mg (65 mg 324 mg PO DAILY 10/05/22 10/05/22 Unknown History iron) tablet,delayed release insulin glargine 100 unit/mL (3 25 unit subcut BID 10/05/22 10/05/22 Unknown History mL) subcutaneous pen (Lantus Solostar U-100 Insulin) insulin lispro 100 unit/mL See Protocol subcut TID 10/05/22 10/05/22 Unknown History subcutaneous pen metformin 500 mg tablet 1,000 mg PO DAILY 10/05/22 10/05/22 Unknown History Physical Exam Vital Signs: Vital Signs: Last Vital Signs Temp 98.6 F 10/06/22 15:26 Pulse 88 10/06/22 15:26 Resp 18 10/06/22 15:26 BP 102/55 L 10/06/22 15:26 Pulse Ox 92 10/06/22 15:26 O2 Del Method Room Air 10/06/22 15:26 O2 Flow Rate 2 10/06/22 07:42 BMI result Body Mass Index 27.6 Const: General: cooperative HEENT: Head: Yes normal to inspection Face and sinus: Yes normal facial exam Mouth: Normal oral and palatal mucosa present Teeth and gingiva: dentition normal Eyes: General: appearance normal, both eyes and all related structures Pupils: Equal, round and reactive pupils present Resp: Effort & Inspection: normal respiratory effort Cardio: Rate: regular rate Rhythm: regular rhythm GI: Palpation (GI): Soft to palpation and nontender : General: Yes no CVA tenderness Back/Spine/Pelvis: Back: no CVA tenderness Skin: General skin exam: no rashes or lesions noted Neuro: General: moves all extremities Cranial nerves: Yes Equal, round and reactive pupils present Extrem: Other: left BKA clear right foot missing toes erythema toes to knee Psych: Appearance: grossly normal Results Labs 10/06/22 05:51 10/06/22 05:51 Labs: Short CBC 10/06/22 Range/Units 05:51 WBC 8.8 (4.8-10.8) X10*3/uL Hgb 8.1 L (14.0-18.0) g/dl Hct 24.1 L (42.0-52.0) % Plt Count 103 L (160-400) X10*3/uL BMP 10/05/22 10/06/22 17:13 05:51 Sodium 134 L 134 L Potassium 5.2 H 4.4 Chloride 101 102 Carbon Dioxide 27 24 BUN 30 H 34 H Creatinine 1.90 H 1.92 H Calcium 7.8 L D 7.8 L Cardiac Enzymes 10/05/22 Range/Units 10:38 Total Creatine Kinase 960 H (38-174) U/L Microbiology Microbiology Results: Microbiology 10/05/22 10:42 Blood - Venous Blood Culture - Preliminary Staphylococcus species 10/05/22 10:38 Blood - Venous Blood Culture - Preliminary Staphylococcus species Assessment and Plan (1) Leukocytosis: Status: Acute (2) Cellulitis of foot, right: Status: Acute There is concern for infection foot?abscess There is endocarditis concern staph aureus bacteremia. Plan Continue Vancomycin likely four weeks. Check echo Surgery evaluate foot. HIV test. Time Spent With Patient Time: Total time managing care of this patient today ____ minutes.
[2022-10-06 17:01] LABS: Vancomycin Random 15.3 mcg/mL (15-20)
[2022-10-06 20:00] LABS: Glucose, Whole Blood 193 mg/dL (60-115)
[2022-10-06] MEDS: Enoxaparin Sodium 40 MG/0.4 ML SYRINGE SUBCUT ×2 (21:28→21:31)
[2022-10-06 23:28] VITALS: BP 99/56; PULSE 80; RESP 16; TEMP 36.3; O2SAT 95
[2022-10-07] MEDS: Sodium Chloride 0.45 % 1,000 ML 100 ML IVCONT ×2 (00:31→11:49)
[2022-10-07 04:30] LABS: Hematocrit 22.7 % (42.0-52.0); Hemoglobin 7.7 g/dl (14.0-18.0); Mean Corpuscular HGB Conc 33.9 g/dl (31.0-36.0); Mean Corpuscular Hemoglobin 27.9 pg (27.0-33.0); Mean Corpuscular Volume 82.2 fL (80.0-98.0); Mean Platelet Volume 11.4 fL (9.4-12.4); Platelet Count 107 X10*3/uL (160-400); Red Blood Count 2.76 X10*6/uL (4.60-5.80); Red Cell Distribution Width 14.4 % (11.0-16.0); White Blood Count 7.2 X10*3/uL (4.8-10.8)
[2022-10-07 04:34] LABS: Anion Gap 13 (12-20); Blood Urea Nitrogen 38 mg/dL (9-16); Calcium 7.9 mg/dL (8.4-10.2); Carbon Dioxide 23 mmol/L (22-29); Chloride 98 mmol/L (96-108); Creatinine Clr Calc Pharmacy 36.9; Estimated Glomerular Filt Rate 25; Glucose Fasting 132 mg/dL (60-99); Potassium 3.7 mmol/L (3.3-5.1); Sodium 130 mmol/L (135-145)
[2022-10-07] MEDS: vancomycin HCL 750 MG in 0.9 % Sodium Chloride 250 ML 265 MG IV (05:54)
--- NOTE | 2022-10-07 06:38 | HE.PHANOTE ---
Vancomycin Dosing Addendum Patients level came back this morning at 18 mg/L. Patients level came back at 0500 with a dose due at 0600, patients next dose of 750 mg was already infusing by the time the [facility] was able to access the level. Changing dose to 500 mg Q12H for the next dose. Shifted timing over by 1 hour so tomorrow pharmacy has time to access level. Next dosing times @0700 and 1900. Next draw 10/08 @0500, this is after only 1 dose of 500mg, however patients renal function worsened drastically over the past 24 hours. Scr up to 2.86 from 1.92 yesterday. Will continue to monitor renal daily.
--- NOTE | 2022-10-07 07:00 | CA_ITS ---
Transthoracic Echocardiogram Amended Patient (Last, First, Middle): Paulo Umana E Gender: Male Date of : 1985 Age: 37 Procedure Date: 10/07/2022 Procedure Type: Transthoracic Echocardiogram [place] [facility] [place] Height: 180.34 cm Weight: 90.01 kg BSA: 2.10 m2 Heart Rate: 88 bpm BP: 99 / 56 mmHg Content Development Manager: SHWETA Referring MD: Suresh Rahman MD Symptoms: staph bacteremia Study Quality: Adequate ECG Rhythm: Sinus Conclusions: - The left ventricular systolic function is normal. The calculated ejection fraction is 60% by biplane method. - There is mild calcification of the aortic valve. - There is mild tricuspid valve regurgitation. - Mild pulmonary hypertension is present. Findings Left Ventricle Normal left ventricular cavity size. There is mildly increased left ventricular wall thickness. The left ventricular systolic function is normal. The calculated ejection fraction is 60% by biplane method. There is no evidence of regional wall motion abnormalities. Diastolic function is normal for age. LV peak GLS -18%. Right Ventricle Mildly increased right ventricular cavity size. There is normal right ventricular systolic function. Atria Both atria are normal in size. Aortic Valve There is a normal trileaflet aortic valve. There is mild calcification of the aortic valve. There is no aortic valve stenosis. There is no aortic valve regurgitation. Mitral Valve The mitral valve appears normal. There is trace mitral valve regurgitation. There is no mitral valve stenosis. Pulmonic Valve The pulmonic valve is likely normal. Tricuspid Valve Normal tricuspid valve structure. There is mild tricuspid valve regurgitation. The right ventricular systolic pressure is 46 mmHg. Mild pulmonary hypertension is present. Great Vessels The asc aorta is normal in size. Venous The inferior vena cava is normal in size and collapses less than 50% with inspiration. Pericardium/Pleural There is a trivial pericardial effusion. Prior Study Comparison No significant change compared to prior study dated: 11/16/2019. Measurements 2D Linear Measurements IVSd: 1.13 0.6-0.9/0.6-1.0 cm LVIDd: 4.51 3.9-5.3/4.2-5.9 cm LVIDd Index: 2.15 2.4-3.2/2.2-3.1 cm/m2 LVIDs: 2.45 2.0-3.6 cm LVPWd: 1.25 0.7-1.1 cm LA Diam: 3.50 2.7-3.8/3.0-4.0 cm LAIDs Index: 1.67 1.5-2.3 cm/m2 LV Mass: 244.76 67-162/88-224 g LV Mass Index: 116.55 43-95/49-115 g/m2 LVOT Diam: 2.10 3.0+(-)1.3 cm 2D Volumes LA Vol: 21.90 2D Systolic Function EF 4C: 60.40 >55% EF 2C: 62.80 >55% EF BiP: 59.50 >55% Mitral Valve MV Pk E: 1.48 MV PK A: 0.77 MV Decel Time: 148.00 E/A: 1.90 E'Lateral: 12.40 E'Medial: 9.36 E/E' Med: 15.80 E/E' Lat: 11.90 PHT: 43.00 MVA PHT: 5.12 Decel [place]: 9.99 Aortic Valve AoV Pk Deni: 1.81 AoV Mn Deni: 1.36 AoV VTI: 0.31 AoV Pk Grad: 13.00 Aov Mn Grad: 8.00 TREASURE Cont.VTI: 2.59 LVOT LVOT Pk Deni: 1.22 LVOT Mn Deni: 0.91 LVOT VTI: 0.23 LVOT Pk Grad: 6.00 LVOT Mn Grad: 4.00 LVOT Diam: 2.10 LVOT Area: 3.46 Diastolic Function MV Pk E: 1.48 MV Pk A: 0.77 E/A: 1.90 E'Medial: 9.36 E/E' Med: 15.80 E' Laterial: 12.40 E/E' Lat: 11.90 Right Ventricle TAPSE (mm): 22.60 TVS' Deni: 14.30 Tricuspid Valve TR Pk Deni: 2.78 TR Pk Grad: 31.00 RA Press: 15.00 RVSP: 46.00 Great Vessels Aorta Sinus of Valsalva: 3.20 2.0-3.5 cm Ao Asc: 3.20 2.1-3.4 cm Pulmonary Valve PV Pk Deni: 1.10 Peak PV Grad: 5.00 Updated in Other Vendor System with Status of Final Carlos Eduardo Turcios MD electronically signed on 10/07/2022 10:09:41 AM with status of Final
[2022-10-07 07:48] VITALS: BP 115/63; PULSE 88; RESP 18; TEMP 36.8; O2SAT 93
[2022-10-07 07:50] LABS: Glucose, Whole Blood 99 mg/dL (60-115)
[2022-10-07] MEDS: Insulin Glargine,Hum.rec.anlog 100 UNIT/ML 10 ML VIAL 30 UNIT SUBCUT ×2 (08:24→20:41)
[2022-10-07] MEDS: 0.9 % Sodium Chloride Flush 3 ML SYRINGE IVFLUSH ×2 (08:25→17:00)
--- NOTE | 2022-10-07 09:31 | P.PNIM_ITS ---
Subjective Subjective Date of Service: 10/07/22 Interval History: nausea and vomitting Physical Exam Vital Signs: Vital Signs: Last Vital Signs Temp 98.3 F 10/07/22 07:48 Pulse 88 10/07/22 07:48 Resp 18 10/07/22 07:48 BP 115/63 10/07/22 07:48 Pulse Ox 93 10/07/22 07:48 O2 Del Method Room Air 10/07/22 07:48 O2 Flow Rate 2 10/06/22 07:42 BMI result Body Mass Index 27.6 Const: General: cooperative HEENT: Head: Yes normal to inspection Face and sinus: Yes normal facial exam Mouth: Normal oral and palatal mucosa present Teeth and gingiva: dentition normal Eyes: General: appearance normal, both eyes and all related structures Pupils: Equal, round and reactive pupils present Resp: Effort & Inspection: normal respiratory effort Cardio: Rate: regular rate Rhythm: regular rhythm GI: Palpation (GI): Soft to palpation and nontender : General: Yes no CVA tenderness Back/Spine/Pelvis: Back: no CVA tenderness Skin: General skin exam: no rashes or lesions noted Neuro: General: moves all extremities Cranial nerves: Yes Equal, round and reactive pupils present Extrem: Other: left BKA clear right foot missing toes erythema toes to knee Psych: Appearance: grossly normal Objective Data Active Medications Acetaminophen (Acetaminophen 325 Mg Tablet) 650 mg PO Q6H PRN PRN Reason: Pain, Mild (Pain Scale 1-3) Enoxaparin Sodium (Enoxaparin Sodium 40 Mg/0.4 Ml Syringe) 40 mg SUBCUT Q24H [facility] Last Admin: 10/06/22 21:31 Dose: 40 mg Documented By: HUE Glucose (Glucose Gel 15 Gm Gel..Gram.) 15 gm PO Q15M PRN; Protocol PRN Reason: per Hypoglycemia Standing Ord. Sodium Chloride (Sodium Chloride 0.45 %) 1,000 mls @ 100 mls/hr IVCONT .Q10H [facility] Last Admin: 10/07/22 00:31 Dose: 100 mls/hr Documented By: HUE Dextrose (D10) 250 mls @ 750 mls/hr IV Q15M PRN; Protocol PRN Reason: per Hypoglycemia Standing Ord. Vancomycin HCl 500 mg/ Sodium (Chloride) 110 mls @ 110 mls/hr IV Q12H [facility] Insulin Glargine (Insulin Glargine,Hum.Rec.Anlog 100 Unit/Ml 10 Ml Vial) 30 unit SUBCUT BID [facility] Last Admin: 10/07/22 08:24 Dose: 30 unit Documented By: NILDA Insulin Human Lispro (Insulin Lispro 100 Unit/Ml 3 Ml Vial) 0 unit SUBCUT QIDACHS [facility]; Protocol Last Admin: 10/07/22 08:25 Dose: Not Given Documented By: NILDA Non-Admin Reason: No Insulin Coverage Morphine Sulfate (Morphine Sulfate 4 Mg/Ml Cartridge) 4 mg IVPUSH Q4H PRN; Protocol PRN Reason: Pain, Severe (Pain Scale 7-10) Ondansetron HCl (Ondansetron Hcl 4 Mg/2 Ml Vial) 4 mg IVPUSH Q8H PRN PRN Reason: Nausea and Vomiting Pharmacy Consult (Consult Rx Perform Med Rec) 1 each MISCELLANE ONCE PRN PRN Reason: Consult order Pharmacy Consult (Consult Rx Vancomycin Dosing) 1 each MISCELLANE DAILY PRN PRN Reason: Consult order Sodium Chloride (0.9 % Sodium Chloride Flush 3 Ml Syringe) 3 ml IVFLUSH QSHIFT [facility] Last Admin: 10/07/22 08:25 Dose: 3 ml Documented By: NILDA Labs 10/07/22 04:04 10/07/22 04:04 Labs: Laboratory Results - last 24 hr 10/05/22 10/06/22 10/06/22 08:51 11:23 16:13 MCV MCH MCHC RDW Plt Count MPV Absolute Nucleated RBC Nucleated RBC % (auto) Smear Path Review SEE NOTE Anion Gap Estim Creat Clear Calc Estimated GFR POC Glucose 353 H* 164 H Fasting Glucose Calcium Random Vancomycin 10/06/22 10/06/22 10/07/22 16:17 19:50 04:04 MCV 82.2 MCH 27.9 MCHC 33.9 RDW 14.4 Plt Count 107 L MPV 11.4 Absolute Nucleated RBC 0.000 Nucleated RBC % (auto) 0.0 Smear Path Review Anion Gap Estim Creat Clear Calc Estimated GFR POC Glucose 193 H Fasting Glucose Calcium Random Vancomycin 15.3 10/07/22 10/07/22 10/07/22 04:04 04:04 07:47 MCV MCH MCHC RDW Plt Count MPV Absolute Nucleated RBC Nucleated RBC % (auto) Smear Path Review Anion Gap 13 Estim Creat Clear Calc 36.9 Estimated GFR 25 POC Glucose 99 Fasting Glucose 132 H Calcium 7.9 L Random Vancomycin 18.0 Microbiology Microbiology Results: Microbiology 10/05/22 10:38 Blood Culture - Preliminary Blood - Venous Staphylococcus species 10/05/22 10:42 Blood Culture - Preliminary Blood - Venous Staphylococcus species Assessment and Plan (1) Cellulitis of foot, right: Status: Acute Plan 37 years old male with PMh of IDDM, opiate dependence, Hx OM post Lt BKA, Rt transmetatarsal amp who presented to the hospital with RLE pain and swelling. right TMA site cellulitis and osteomyelitis due to DM complicated by staph bacteremia CT with air vascular appreciated - more likely collection, necfascitis less likely, possible bedside intervention 10/07/22 IV Vanco and Zosyn ID appreciated follow up echo Hyperglycemia in IDDM Increased Lantus to 30 bid SSI diabetic diet Hyperkalemia Lokelma given, resolved SMITHA follow BMP monitor vanc trough DVT PPx Lovenox full code reason for continued hospitalization:bacteremia Time Spent With Patient Time: Total time managing care of this patient today ____ minutes. Quality Stroke Does the patient have a stroke diagnosis?: No VTE Prior VTE?: No VTE Risk Level:: Medical - moderate - high VTE Device Contraindication: Treatment Not Indicated VTE Drug Contraindication: N/A - Med Ordered
[2022-10-07 11:19] LABS: Glucose, Whole Blood 126 mg/dL (60-115)
--- NOTE | 2022-10-07 12:56 | P.CDIM_ITS ---
PROVIDER RESPONSE TEXT: To clarify, the appropriate diagnosis supported by the clinical indicators: Other (explain): was hyperglycemia QUERY TEXT: PHYSICIAN'S DOCUMENTATION REQUEST Date of Query: 10/07/2022 11:38 AM EDT Patient Name: Paulo Umana Admit Date: 10/05/2022 Dear Suresh Rahman, A review of the medical record indicates additional documentation may be needed. Please review below and update the documentation accordingly. Clinical Indicators: LAB FINDINGS: sodium 128 130 L IV fluids Hyponatremia or other etiology of lab findings Labs indicate a diagnosis of (please specify) Other Other (explain) Clinically unable to determine (explain) Thank you, Brisa Nova, CCS, CDIS Use of terms such as suspected, likely, concern for, or probable (associated with a specific diagnosi s that is being evaluated, monitored, or treated as if it exists) are acceptable and can be coded in the inpatient se tting, when documented at the time of discharge. Please use your independent medical judgment in providing your response. THIS QUERY IS PART OF THE PERMANENT MEDICAL RECORD
--- NOTE | 2022-10-07 13:07 | HO.VASCPN ---
Subjective Subjective Date of Service: 10/07/22 Patient reports: no new complaints Interval history: Complex 37-year-old gentleman for follow-up regarding edematous right lower extremity. This morning he has developed a blister which has now declared itself. He now presents for routine check of the right lower extremity. Physical Exam Vital Signs: Vital Signs: Last Vital Signs Temp 98.3 F 10/07/22 07:48 Pulse 88 10/07/22 07:48 Resp 18 10/07/22 07:48 BP 115/63 10/07/22 07:48 Pulse Ox 93 10/07/22 07:48 O2 Del Method Room Air 10/07/22 07:48 O2 Flow Rate 2 10/06/22 07:42 BMI result Body Mass Index 27.6 Const: General: cooperative, healthy appearing and no acute distress Orientation/consciousness: oriented to person, oriented to place and oriented to time HEENT: Head: Yes normal to inspection Neck: Carotids: no bruits Chest: Chest palpation & inspection: normal inspection of the chest Resp: Effort & Inspection: normal respiratory effort and able to speak in complete sentences Auscultation: clear to auscultation bilaterally Cardio: Rate: regular rate Heart sounds: S1 normal heart sound present and S2 normal heart sound present GI: Inspection: Yes normal to inspection Skin: Other: Right foot dorsum blister - it popped. Copious purulent material was expressed. General skin exam: no rashes or lesions noted Wounds: no wounds Neuro: General: oriented to person, oriented to place, oriented to time and CN's II-XI intact bilaterally Extrem: General: Yes normal to inspection, Yes full ROM and Yes no clubbing, cyanosis or edema Psych: Appearance: grossly normal and well kempt Speech and movement: Normal speech and movement present Affect: normal affect Progress Note: A&P Assessment and plan (1) Diabetic ulcer of right lower leg: Status: Acute Assessment and Plan: In short patient has diabetic ulcer. The concern is the amount of infection. This is penetrating down to bone. I do not believe this will heal. The wound was packed. We will reassess tomorrow. In addition the patient has an element of peripheral vascular disease as well as noted on noninvasive testing as SFA on down becomes monophasic flow. Should this not demonstrate any signs of improvement would plan for BKA for Tuesday. Case was discussed with the hospitalist team. Thank you for allowing us to assist in his care. Time Spent With Patient Time: Total time managing care of this patient today ____ minutes. Procedures Date of Service Date of Service: 10/07/22 Quality Stroke Does the patient have a stroke diagnosis?: No VTE Prior VTE?: No VTE Risk Level:: Medical - moderate - high VTE Device Contraindication: Treatment Not Indicated VTE Drug Contraindication: N/A - Med Ordered
--- NOTE | 2022-10-07 14:18 | PHA.MEDREC ---
Pharmacy Consult ? Medication Reconciliation Pharmacy has completed the medication reconciliation. Completed 10/05/22; pt has not filled medications since last fall. Adamant he is compliant and took medications day prior, but also noted he has had insurance issues. Notified provider
--- NOTE | 2022-10-07 15:21 | MHC.CM.PN ---
PATIENT TELLS THIS ENTRY LEVEL AUTOMOTIVE TECHNICIAN THAT HIS 15-YEAR-OLD SON IS IN SAFE HOUSING ALONG WITH PATIENT'S GIRLFRIEND, OLIVIER. HE REPORTS HAVING RECEIVED ASSISTANCE FOLLOWING OUTREACH PHONE CALL MADE YESTERDAY.
[2022-10-07 15:32] VITALS: BP 125/64; PULSE 85; RESP 16; TEMP 36.3; O2SAT 94
[2022-10-07 16:38] LABS: Glucose, Whole Blood 220 mg/dL (60-115)
--- NOTE | 2022-10-07 16:39 | MHC.RECOVRN ---
This contract writer met w/ patient after addiction consult was placed. Patient was resting in bed, watching t.v. 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 Prior to this last month, patient had 6 months in recovery. Patient reports recently went to detox at [facility]. Patient reports history of MTD maintenance, levels of treatment including detox, CSS, TSS. Patient reports no other substances used. Patient reports girlfriend is in Recovery, supportive of patients recovery, both attend NA/AA meetings together. Patient reports recently started again at the [facility] due to reoccurrence. Patient reports stress due to medical issues and pain led to reoccurrence. This contract writer spoke w/ Pilar at [facility], last dose 10/04/22, 40mg at 11:46a.m. MTD verification faxxed to pharmacy, Provider Radha Sewell ordered 40mg MTD, patients JOHNNY booth.
--- NOTE | 2022-10-07 16:42 | HE.PHANOTE ---
Methadone Verification Pharmacy has received the methadone verification from JOHNNY Gonzalez. Patient last received methadone 40 mg on 10/04/2022 @ 1146 from Albert DO. RN received information from Pilar at the clinic. Leticia Shell, NavaD
[2022-10-07] MEDS: methADONE HCl 20 MG/2 ML ORAL.CONC 40 MG PO (16:59)
[2022-10-07] MEDS: Insulin Lispro 100 UNIT/ML 3 ML VIAL SUBCUT ×2 (16:59→20:41)
--- NOTE | 2022-10-07 17:21 | P.EN_ITS ---
Event Note Date of Service: 10/07/22 Event Note: Addiction consult Please see train conductor note dated 10/07/22 Methadone ordered by this keno writer/runner following verification from RN Time Spent With Patient Time: Total time managing care of this patient today ____ minutes.
--- NOTE | 2022-10-07 17:21 | PM.EVENT ---
Event Note Date of Service: 10/07/22 Event Note: Addiction consult Please see u.s. representative note dated 10/07/22 Methadone ordered by this sports writer following verification from RN Time Spent With Patient Time: Total time managing care of this patient today ____ minutes.
[2022-10-07] MEDS: vancomycin HCL 500 MG in 0.9 % Sodium Chloride 100 ML 110 MG IV (18:41)
[2022-10-07 19:56] VITALS: BP 114/63; PULSE 80; RESP 16; TEMP 36.6; O2SAT 96
[2022-10-07 20:17] LABS: Glucose, Whole Blood 204 mg/dL (60-115)
[2022-10-07] MEDS: Enoxaparin Sodium 40 MG/0.4 ML SYRINGE SUBCUT (20:42)
[2022-10-07 23:29] VITALS: BP 130/67; PULSE 86; RESP 18; TEMP 37.7; O2SAT 95
[2022-10-08 05:08] LABS: Mean Corpuscular HGB Conc 34.8 g/dl (31.0-36.0); Mean Corpuscular Hemoglobin 28.4 pg (27.0-33.0); Mean Corpuscular Volume 81.6 fL (80.0-98.0); Mean Platelet Volume 10.9 fL (9.4-12.4); Platelet Count 133 X10*3/uL (160-400); Red Blood Count 2.82 X10*6/uL (4.60-5.80); Red Cell Distribution Width 14.2 % (11.0-16.0); White Blood Count 7.7 X10*3/uL (4.8-10.8)
[2022-10-08 05:23] LABS: Anion Gap 14 (12-20); Blood Urea Nitrogen 40 mg/dL (9-16); Calcium 7.8 mg/dL (8.4-10.2); Carbon Dioxide 19 mmol/L (22-29); Chloride 102 mmol/L (96-108); Creatinine Clr Calc Pharmacy 31.7; Estimated Glomerular Filt Rate 21; Glucose Fasting 151 mg/dL (60-99); Potassium 3.3 mmol/L (3.3-5.1); Sodium 132 mmol/L (135-145)
[2022-10-08 05:31] LABS: Vancomycin Random 18.8 mcg/mL (15-20)
[2022-10-08 07:28] LABS: Glucose, Whole Blood 142 mg/dL (60-115)
[2022-10-08 07:47] VITALS: BP 120/57; PULSE 79; RESP 18; TEMP 37.1; O2SAT 93
[2022-10-08] MEDS: 0.9 % Sodium Chloride Flush 3 ML SYRINGE IVFLUSH ×3 (07:48→20:29)
[2022-10-08] MEDS: methADONE HCl 20 MG/2 ML ORAL.CONC 40 MG PO (07:48)
[2022-10-08] MEDS: Insulin Glargine,Hum.rec.anlog 100 UNIT/ML 10 ML VIAL 30 UNIT SUBCUT ×2 (07:48→20:29)
--- NOTE | 2022-10-08 08:01 | HE.PHANOTE ---
Vancomycin Dosing Addendum Patients trough was high as well as his renal function worsened. Held 1 dose, will continue at a lower dose of 750 mg Q24H last today. Next draw 10/09 @1700. Juan continue to monitor renal
--- NOTE | 2022-10-08 09:42 | HO.VASCPN ---
Subjective Subjective Date of Service: 10/08/22 Patient reports: no new complaints and pain is less Interval history: Patient seen and examined. No events overnight. States that the leg feels less full. Pain reasonably well controlled. Now for routine follow-up of nonhealing ulcer of the right foot. Physical Exam Vital Signs: Vital Signs: Last Vital Signs Temp 98.7 F 10/08/22 07:47 Pulse 79 10/08/22 07:47 Resp 18 10/08/22 07:47 BP 120/57 L 10/08/22 07:47 Pulse Ox 93 10/08/22 07:47 O2 Del Method Room Air 10/08/22 07:47 O2 Flow Rate 2 10/06/22 07:42 BMI result Body Mass Index 27.6 Const: General: cooperative, healthy appearing and no acute distress Orientation/consciousness: oriented to person, oriented to place and oriented to time HEENT: Head: Yes normal to inspection Neck: Carotids: no bruits Chest: Chest palpation & inspection: normal inspection of the chest Resp: Effort & Inspection: normal respiratory effort and able to speak in complete sentences Auscultation: clear to auscultation bilaterally Cardio: Rate: regular rate Heart sounds: S1 normal heart sound present and S2 normal heart sound present GI: Inspection: Yes normal to inspection Skin: Other: Right foot approximately a 6 cm opening on the dorsum of the foot. Still purulent material being expressed from that foot. Penetrating down to bone no granulation tissue extremely foul odor associated with it. General skin exam: no rashes or lesions noted Wounds: amputation site (Left BKA well-healed) Neuro: General: oriented to person, oriented to place, oriented to time and CN's II-XI intact bilaterally Extrem: General: Yes normal to inspection, Yes full ROM and Yes no clubbing, cyanosis or edema Psych: Appearance: grossly normal and well kempt Speech and movement: Normal speech and movement present Affect: normal affect Progress Note: A&P Assessment and plan (1) Diabetic ulcer of right lower leg: Status: Acute Assessment and Plan: In short patient has a nonhealing diabetic right foot ulcer. Due to his poor kidney function and poor tissue I do not feel that a conservative round of treatment of antibiotics and local wound care will heal this. I did have a very lucas discussion with the patient regarding this. He will require a right below-knee amputation. Risks benefits complications were discussed in detail with the patient. He understood and consented. He would like to move forward. We will schedule him for Tuesday. Thank you for allowing us to assist in his care. Time Spent With Patient Time: Total time managing care of this patient today ____ minutes. Procedures Date of Service Date of Service: 10/08/22 Quality Stroke Does the patient have a stroke diagnosis?: No VTE Prior VTE?: No VTE Risk Level:: Medical - moderate - high VTE Device Contraindication: Treatment Not Indicated VTE Drug Contraindication: N/A - Med Ordered
--- NOTE | 2022-10-08 09:43 | P.PNIM_ITS ---
Subjective Subjective Date of Service: 10/08/22 Interval History: some releief after procedure Physical Exam Vital Signs: Vital Signs: Last Vital Signs Temp 98.7 F 10/08/22 07:47 Pulse 79 10/08/22 07:47 Resp 18 10/08/22 07:47 BP 120/57 L 10/08/22 07:47 Pulse Ox 93 10/08/22 07:47 O2 Del Method Room Air 10/08/22 07:47 O2 Flow Rate 2 10/06/22 07:42 BMI result Body Mass Index 27.6 Const: General: cooperative, healthy appearing and no acute distress Orientation/consciousness: oriented to person, oriented to place and oriented to time HEENT: Head: Yes normal to inspection Neck: Carotids: no bruits Chest: Chest palpation & inspection: normal inspection of the chest Resp: Effort & Inspection: normal respiratory effort and able to speak in complete sentences Auscultation: clear to auscultation bilaterally Cardio: Rate: regular rate Heart sounds: S1 normal heart sound present and S2 normal heart sound present GI: Inspection: Yes normal to inspection Skin: Other: Right foot dorsum blister - it popped. Copious purulent material was expressed. General skin exam: no rashes or lesions noted Wounds: no wounds Neuro: General: oriented to person, oriented to place, oriented to time and CN's II-XI intact bilaterally Extrem: General: Yes normal to inspection, Yes full ROM and Yes no clubbing, cyanosis or edema Psych: Appearance: grossly normal and well kempt Speech and movement: Normal speech and movement present Affect: normal affect Objective Data Active Medications Acetaminophen (Acetaminophen 325 Mg Tablet) 650 mg PO Q6H PRN PRN Reason: Pain, Mild (Pain Scale 1-3) Enoxaparin Sodium (Enoxaparin Sodium 40 Mg/0.4 Ml Syringe) 40 mg SUBCUT Q24H [facility] Last Admin: 10/07/22 20:42 Dose: 40 mg Documented By: SHILA Glucose (Glucose Gel 15 Gm Gel..Gram.) 15 gm PO Q15M PRN; Protocol PRN Reason: per Hypoglycemia Standing Ord. Dextrose (D10) 250 mls @ 750 mls/hr IV Q15M PRN; Protocol PRN Reason: per Hypoglycemia Standing Ord. Vancomycin HCl 750 mg/ Sodium (Chloride) 265 mls @ 265 mls/hr IV Q24H [facility] Insulin Glargine (Insulin Glargine,Hum.Rec.Anlog 100 Unit/Ml 10 Ml Vial) 30 unit SUBCUT BID [facility] Last Admin: 10/08/22 07:48 Dose: 30 unit Documented By: TAMAR Insulin Human Lispro (Insulin Lispro 100 Unit/Ml 3 Ml Vial) 0 unit SUBCUT QIDACHS [facility]; Protocol Last Admin: 10/08/22 08:28 Dose: Not Given Documented By: TAMAR Non-Admin Reason: No Insulin Coverage Methadone HCl (Methadone Hcl 20 Mg/2 Ml Oral.Conc) 40 mg PO DAILY [facility] Last Admin: 10/08/22 07:48 Dose: 40 mg Documented By: TAMAR Morphine Sulfate (Morphine Sulfate 4 Mg/Ml Cartridge) 4 mg IVPUSH Q4H PRN; Protocol PRN Reason: Pain, Severe (Pain Scale 7-10) Ondansetron HCl (Ondansetron Hcl 4 Mg/2 Ml Vial) 4 mg IVPUSH Q8H PRN PRN Reason: Nausea and Vomiting Pharmacy Consult (Consult Rx Perform Med Rec) 1 each MISCELLANE ONCE PRN PRN Reason: Consult order Pharmacy Consult (Consult Rx Vancomycin Dosing) 1 each MISCELLANE DAILY PRN PRN Reason: Consult order Sodium Chloride (0.9 % Sodium Chloride Flush 3 Ml Syringe) 3 ml IVFLUSH QSHIFT [facility] Last Admin: 10/08/22 07:48 Dose: 3 ml Documented By: TAMAR Labs 10/08/22 04:54 10/08/22 04:54 Labs: Laboratory Results - last 24 hr 10/07/22 10/07/22 10/07/22 11:16 16:34 19:58 MCV MCH MCHC RDW Plt Count MPV Absolute Nucleated RBC Nucleated RBC % (auto) Anion Gap Estim Creat Clear Calc Estimated GFR POC Glucose 126 H 220 H 204 H Fasting Glucose Calcium Random Vancomycin 10/08/22 10/08/22 10/08/22 04:54 04:54 04:54 MCV 81.6 MCH 28.4 MCHC 34.8 RDW 14.2 Plt Count 133 L MPV 10.9 Absolute Nucleated RBC 0.000 Nucleated RBC % (auto) 0.0 Anion Gap 14 Estim Creat Clear Calc 31.7 Estimated GFR 21 POC Glucose Fasting Glucose 151 H Calcium 7.8 L Random Vancomycin 18.8 10/08/22 07:24 MCV MCH MCHC RDW Plt Count MPV Absolute Nucleated RBC Nucleated RBC % (auto) Anion Gap Estim Creat Clear Calc Estimated GFR POC Glucose 142 H Fasting Glucose Calcium Random Vancomycin Microbiology Microbiology Results: Microbiology 10/05/22 10:42 Blood Culture - Final Blood - Venous Methicillin Res Staph Aureus 10/05/22 10:38 Blood Culture - Final Blood - Venous Methicillin Res Staph Aureus 10/07/22 04:04 Blood Culture - Preliminary Blood - Venous Prelim: GPC Gram Stain only 10/07/22 04:04 Blood Culture - Preliminary Blood - Venous No growth after 24 hours. Assessment and Plan (1) Cellulitis of foot, right: Status: Acute Plan 37 years old male with PMh of IDDM, opiate dependence, Hx OM post Lt BKA, Rt transmetatarsal amp who presented to the hospital with RLE pain and swelling. right TMA site cellulitis and osteomyelitis due to DM complicated by MRSA bacteremia CT with air vascular appreciated - s/p bedside I and D 10/07/22, plan for right bka on 10/11/22 no obvious vegetation on TTE ID appreciated, will continue zosyn, change vanc to dapto PVD seen on duplex Hyperglycemia in IDDM Increased Lantus to 30 bid SSI diabetic diet Hyperkalemia Lokelma given, resolved SMITHA worsening will change to dapto nephro eval opiate dependence methadone DVT PPx Lovenox full code reason for continued hospitalization:bacteremia Time Spent With Patient Time: Total time managing care of this patient today ____ minutes. Quality Stroke Does the patient have a stroke diagnosis?: No VTE Prior VTE?: No VTE Risk Level:: Medical - moderate - high VTE Device Contraindication: Treatment Not Indicated VTE Drug Contraindication: N/A - Med Ordered
[2022-10-08] MEDS: Insulin Lispro 100 UNIT/ML 3 ML VIAL SUBCUT ×3 (11:52→20:28)
[2022-10-08] MEDS: DAPTOmycin 700 MG in 0.9 % Sodium Chloride 50 ML 99.4 MG IV (11:53)
--- NOTE | 2022-10-08 11:56 | MHC.CM.PN ---
Addendum entered by Shannan Giordano 10/08/22 11:59: REFERRALS NOW MADE FOR [facility]OTH [facility] AND [facility] Original Note: PER MD ROUNDS, PLAN IS FOR BKA ON TUESDAY DCP HOME WITH [facility] VS [facility]
[2022-10-08 14:17] LABS: Glucose, Whole Blood 266 mg/dL (60-115)
[2022-10-08 15:40] VITALS: BP 152/80; PULSE 85; RESP 16; TEMP 36.3; O2SAT 98
[2022-10-08 16:27] LABS: Glucose, Whole Blood 234 mg/dL (60-115)
--- NOTE | 2022-10-08 18:33 | PM.CNNEP ---
History of Present Illness Reason for Consult Consult date: 10/08/22 Chief Complaint Chief complaint: N/V, Leg pain History of Present Illness Narrative: 37 years old male with PMh of IDDM, substance abuse on methadone, Hx OM post Lt BKA, Rt transmetatarsal amp who presents to the hospital with RLE pain , swelling.r esdness over the last week or so with no reported injuries or wounds. His blood sugar has been running too high and he was taking his meds but for the last 2 days he got nausea and vomiting and couldnt keep anything in his stomach. He had been having low grade fever and chills with no chest pain, palpitation, SOB, change in bowel habit or urinary symptoms. He as admitted for further management. During the course of his hospital stay, his serum creatinine has been going up. He is due to have his R BKA after weekend. Nephrology has been consulted to assist in his clinical care during his current hospital stay Review of Systems Review of Systems Yes all other systems are reviewed and are negative PMFSH Past Medical History Medical History Anemia Diabetes Diabetic infection of left foot Foot abscess, left Foot osteomyelitis, left History of substance use Hypergranulation Non-healing ulcer Non-healing ulcer of right foot Osteomyelitis Osteomyelitis Wound dehiscence Family History Family History Mother Breast cancer CVD (cardiovascular disease) Diabetes Cancer Father Diabetes CVD (cardiovascular disease) Family history: reviewed and not pertinent Surgical History Surgical History History of appendectomy History of carpal tunnel surgery of left wrist History 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 Social History Social History Household Members: Significant Other and Children Housing: Apartment Housing Other:: patient states his belongings are in his truck Do you presently have visiting nurse or other home services: No Unable to assess alcohol history related to: Unknown Alcohol intake: never Patient Tobacco Use Status: Current everyday Tobacco user Tobacco use type: Cigarette Cigarette Packs Per Day: 0.5 Cigarettes Per Day: 10 Years Smoked: 30 e-Cigarette/Vaping Use: Never Used Second Hand Smoke Exposure: No Substance Use Type: Heroin and IV Drugs Advance Directives Date on File: 08/05/21 service: No Current occupational status: unemployed Meds Allergies Allergy/AdvReac Type Severity Reaction Status Date / Time No Known Allergies Allergy Verified 10/05/22 08:32 [No Known Allergies*] Active Medications: Current Medications Acetaminophen (Acetaminophen 325 Mg Tablet) 650 mg PO Q6H PRN PRN Reason: Pain, Mild (Pain Scale 1-3) Enoxaparin Sodium (Enoxaparin Sodium 40 Mg/0.4 Ml Syringe) 40 mg SUBCUT Q24H [facility] Last Admin: 10/07/22 20:42 Dose: 40 mg Glucose (Glucose Gel 15 Gm Gel..Gram.) 15 gm PO Q15M PRN; Protocol PRN Reason: per Hypoglycemia Standing Ord. Dextrose (D10) 250 mls @ 750 mls/hr IV Q15M PRN; Protocol PRN Reason: per Hypoglycemia Standing Ord. Daptomycin 700 mg/ Sodium (Chloride) 64 mls @ 99.396 mls/hr IV Q24H [facility] Last Infusion: 10/08/22 12:37 Dose: Infused Insulin Glargine (Insulin Glargine,Hum.Rec.Anlog 100 Unit/Ml 10 Ml Vial) 30 unit SUBCUT BID [facility] Last Admin: 10/08/22 07:48 Dose: 30 unit Insulin Human Lispro (Insulin Lispro 100 Unit/Ml 3 Ml Vial) 0 unit SUBCUT QIDACHS [facility]; Protocol Last Admin: 10/08/22 16:54 Dose: 4 unit Methadone HCl (Methadone Hcl 20 Mg/2 Ml Oral.Conc) 40 mg PO DAILY [facility] Last Admin: 10/08/22 07:48 Dose: 40 mg Morphine Sulfate (Morphine Sulfate 4 Mg/Ml Cartridge) 4 mg IVPUSH Q4H PRN; Protocol PRN Reason: Pain, Severe (Pain Scale 7-10) Ondansetron HCl (Ondansetron Hcl 4 Mg/2 Ml Vial) 4 mg IVPUSH Q8H PRN PRN Reason: Nausea and Vomiting Pharmacy Consult (Consult Rx Perform Med Rec) 1 each MISCELLANE ONCE PRN PRN Reason: Consult order Sodium Chloride (0.9 % Sodium Chloride Flush 3 Ml Syringe) 3 ml IVFLUSH QSHIFT [facility] Last Admin: 10/08/22 16:55 Dose: 3 ml Home Medications Medication Instructions Recorded Confirmed Last Taken Type ferrous sulfate 324 mg (65 mg 324 mg PO DAILY 10/05/22 10/05/22 Unknown History iron) tablet,delayed release insulin glargine 100 unit/mL (3 25 unit subcut BID 10/05/22 10/05/22 Unknown History mL) subcutaneous pen (Lantus Solostar U-100 Insulin) insulin lispro 100 unit/mL See Protocol subcut TID 10/05/22 10/05/22 Unknown History subcutaneous pen metformin 500 mg tablet 1,000 mg PO DAILY 10/05/22 10/05/22 Unknown History methadone 10 mg/mL oral 40 mg PO DAILY 10/07/22 10/07/22 10/04/22 11:46 History concentrate (Methadone Intensol) Physical Exam Vital Signs: Last Vital Signs Temp 97.4 F 10/08/22 15:40 Pulse 85 10/08/22 15:40 Resp 16 10/08/22 15:40 BP 152/80 H 10/08/22 15:40 Pulse Ox 98 10/08/22 15:40 O2 Del Method Room Air 10/08/22 15:40 O2 Flow Rate 2 10/06/22 07:42 BMI result Body Mass Index 27.6 Const General: no acute distress Orientation/consciousness: patient oriented x3 Eyes EOM: EOMs intact bilaterally Neck Neck: Yes supple Resp Auscultation: diminished lung sounds Cardio Rate: regular rate GI Palpation (GI): Soft to palpation Neuro General: patient oriented x3 and moves all extremities Results Lab Results 10/08/22 04:54 10/08/22 04:54 Lab results: Chemistry 10/06/22 10/07/22 10/08/22 05:51 04:04 04:54 Sodium 134 L 130 L 132 L Potassium 4.4 3.7 3.3 Carbon Dioxide 24 23 19 L BUN 34 H 38 H 40 H Creatinine 1.92 H 2.86 H 3.33 H Calcium 7.8 L 7.9 L 7.8 L Hematology 10/06/22 10/07/22 10/08/22 05:51 04:04 04:54 WBC 8.8 7.2 7.7 Hgb 8.1 L 7.7 L 8.0 L Plt Count 103 L 107 L 133 L Assessment and Plan (1) Acute kidney injury superimposed on CKD: Status: Acute Plan Has CKD 3 at baseline SMITHA on CKD likely due to tubular injury DDX- Una infectious GN- given U/A results No reason to suspect AIN/ Obstructive Uropathy Hemodynamics stable; Vanco switched to Dapto Remains on Zosyn; For R BKA C3/C4/ Ig A levels orderd May need renal biopsy C/W current supportive management for now Time Spent With Patient Time: Total time managing care of this patient today ____ minutes. Procedures Date of Service Date of Service: 10/08/22
[2022-10-08 20:10] LABS: Glucose, Whole Blood 346 mg/dL (60-115)
[2022-10-08] MEDS: Enoxaparin Sodium 40 MG/0.4 ML SYRINGE SUBCUT (20:30)
[2022-10-09] VITALS: RESP 18; TEMP 36.6
[2022-10-09 05:48] LABS: Hematocrit 23.7 % (42.0-52.0); Hemoglobin 8.1 g/dl (14.0-18.0); Mean Corpuscular HGB Conc 34.2 g/dl (31.0-36.0); Mean Corpuscular Hemoglobin 28.1 pg (27.0-33.0); Mean Corpuscular Volume 82.3 fL (80.0-98.0); Mean Platelet Volume 10.9 fL (9.4-12.4); Platelet Count 166 X10*3/uL (160-400); Red Blood Count 2.88 X10*6/uL (4.60-5.80); Red Cell Distribution Width 14.1 % (11.0-16.0); White Blood Count 7.2 X10*3/uL (4.8-10.8)
[2022-10-09 06:10] LABS: Anion Gap 16 (12-20); Blood Urea Nitrogen 37 mg/dL (9-16); Carbon Dioxide 21 mmol/L (22-29); Chloride 104 mmol/L (96-108); Creatinine Clr Calc Pharmacy 33.9; Estimated Glomerular Filt Rate 22; Glucose Fasting 125 mg/dL (60-99); Potassium 3.7 mmol/L (3.3-5.1); Sodium 137 mmol/L (135-145)
[2022-10-09 07:36] LABS: Glucose, Whole Blood 124 mg/dL (60-115)
[2022-10-09 07:56] VITALS: BP 166/74; PULSE 85; RESP 18; TEMP 36.5; O2SAT 94
[2022-10-09] MEDS: 0.9 % Sodium Chloride Flush 3 ML SYRINGE IVFLUSH (08:01)
[2022-10-09] MEDS: methADONE HCl 20 MG/2 ML ORAL.CONC 40 MG PO (08:01)
[2022-10-09] MEDS: Insulin Glargine,Hum.rec.anlog 100 UNIT/ML 10 ML VIAL 30 UNIT SUBCUT (08:03)
--- NOTE | 2022-10-09 09:35 | HO.PM.IMPN ---
Subjective Subjective Date of Service: 10/09/22 Interval History: no complaints Physical Exam Vital Signs: Vital Signs: Last Vital Signs Temp 97.7 F 10/09/22 07:56 Pulse 85 10/09/22 07:56 Resp 18 10/09/22 07:56 BP 166/74 H 10/09/22 07:56 Pulse Ox 94 10/09/22 07:56 O2 Del Method Room Air 10/09/22 07:56 O2 Flow Rate 2 10/06/22 07:42 BMI result Body Mass Index 27.6 Const: General: no acute distress Orientation/consciousness: patient oriented x3 Eyes: EOM: EOMs intact bilaterally Neck: Neck: Yes supple Resp: Auscultation: diminished lung sounds Cardio: Rate: regular rate GI: Palpation (GI): Soft to palpation Neuro: General: patient oriented x3 and moves all extremities Objective Data Active Medications Acetaminophen (Acetaminophen 325 Mg Tablet) 650 mg PO Q6H PRN PRN Reason: Pain, Mild (Pain Scale 1-3) Enoxaparin Sodium (Enoxaparin Sodium 40 Mg/0.4 Ml Syringe) 40 mg SUBCUT Q24H [facility] Last Admin: 10/08/22 20:30 Dose: 40 mg Documented By: CAROLIN Glucose (Glucose Gel 15 Gm Gel..Gram.) 15 gm PO Q15M PRN; Protocol PRN Reason: per Hypoglycemia Standing Ord. Dextrose (D10) 250 mls @ 750 mls/hr IV Q15M PRN; Protocol PRN Reason: per Hypoglycemia Standing Ord. Daptomycin 700 mg/ Sodium (Chloride) 64 mls @ 99.396 mls/hr IV Q24H [facility] Last Infusion: 10/08/22 12:37 Dose: 0 mls/hr Documented By: TAMAR Insulin Glargine (Insulin Glargine,Hum.Rec.Anlog 100 Unit/Ml 10 Ml Vial) 30 unit SUBCUT BID [facility] Last Admin: 10/09/22 08:03 Dose: 30 unit Documented By: CHUCK Insulin Human Lispro (Insulin Lispro 100 Unit/Ml 3 Ml Vial) 0 unit SUBCUT QIDACHS [facility]; Protocol Last Admin: 10/09/22 07:52 Dose: Not Given Documented By: CHUCK Non-Admin Reason: No Insulin Coverage Methadone HCl (Methadone Hcl 20 Mg/2 Ml Oral.Conc) 40 mg PO DAILY [facility] Last Admin: 10/09/22 08:01 Dose: 40 mg Documented By: CHUCK Morphine Sulfate (Morphine Sulfate 4 Mg/Ml Cartridge) 4 mg IVPUSH Q4H PRN; Protocol PRN Reason: Pain, Severe (Pain Scale 7-10) Ondansetron HCl (Ondansetron Hcl 4 Mg/2 Ml Vial) 4 mg IVPUSH Q8H PRN PRN Reason: Nausea and Vomiting Pharmacy Consult (Consult Rx Perform Med Rec) 1 each MISCELLANE ONCE PRN PRN Reason: Consult order Sodium Chloride (0.9 % Sodium Chloride Flush 3 Ml Syringe) 3 ml IVFLUSH QSHIFT [facility] Last Admin: 10/09/22 08:01 Dose: 3 ml Documented By: CHUCK Labs 10/09/22 05:30 10/09/22 05:30 Labs: Laboratory Results - last 24 hr 10/08/22 10/08/22 10/08/22 11:12 16:24 20:05 MCV MCH MCHC RDW Plt Count MPV Absolute Nucleated RBC Nucleated RBC % (auto) Anion Gap Estim Creat Clear Calc Estimated GFR POC Glucose 266 H 234 H 346 H Fasting Glucose Calcium 10/09/22 10/09/22 10/09/22 05:30 05:30 07:30 MCV 82.3 MCH 28.1 MCHC 34.2 RDW 14.1 Plt Count 166 MPV 10.9 Absolute Nucleated RBC 0.000 Nucleated RBC % (auto) 0.0 Anion Gap 16 Estim Creat Clear Calc 33.9 Estimated GFR 22 POC Glucose 124 H Fasting Glucose 125 H Calcium 8.0 L Microbiology Microbiology Results: Microbiology 10/07/22 04:04 Blood Culture - Preliminary Blood - Venous Staphylococcus aureus 10/07/22 04:04 Blood Culture - Preliminary Blood - Venous No growth after 48 hours. 10/05/22 10:42 Blood Culture - Final Blood - Venous Methicillin Res Staph Aureus 10/05/22 10:38 Blood Culture - Final Blood - Venous Methicillin Res Staph Aureus Assessment and Plan (1) Cellulitis of foot, right: Status: Acute Plan 37 years old male with PMh of IDDM, opiate dependence, Hx OM post Lt BKA, Rt transmetatarsal amp who presented to the hospital with RLE pain and swelling. right TMA site cellulitis and osteomyelitis due to DM complicated by MRSA bacteremia CT with air vascular appreciated - s/p bedside I and D 10/07/22, plan for right bka on 10/11/22 no obvious vegetation on TTE ID appreciated, will continue zosyn, changed vanc to dapto PVD seen on duplex follow up repeat cultures Hyperglycemia in IDDM Increased Lantus to 30 bid SSI diabetic diet Hyperkalemia Lokelma given, resolved SMITHA stable today changed to dapto nephro following opiate dependence methadone DVT PPx Lovenox full code reason for continued hospitalization:bacteremia Time Spent With Patient Time: Total time managing care of this patient today ____ minutes. Quality Stroke Does the patient have a stroke diagnosis?: No VTE Prior VTE?: No VTE Risk Level:: Medical - moderate - high VTE Device Contraindication: Treatment Not Indicated VTE Drug Contraindication: N/A - Med Ordered
[2022-10-09] MEDS: DAPTOmycin 700 MG in 0.9 % Sodium Chloride 50 ML 99.4 MG IV (09:52)
[2022-10-09 11:33] LABS: Glucose, Whole Blood 195 mg/dL (60-115)
[2022-10-09] MEDS: Insulin Lispro 100 UNIT/ML 3 ML VIAL SUBCUT (12:08)
--- NOTE | 2022-10-09 15:22 | PM.PNNEP ---
Subjective Subjective Date of Service: 10/09/22 Interval history: No complaints.All recent data reviewed Physical Exam Vital Signs: Vital Signs: Last Vital Signs Temp 97.7 F 10/09/22 07:56 Pulse 85 10/09/22 07:56 Resp 18 10/09/22 07:56 BP 166/74 H 10/09/22 07:56 Pulse Ox 94 10/09/22 07:56 O2 Del Method Room Air 10/09/22 07:56 O2 Flow Rate 2 10/06/22 07:42 BMI result Body Mass Index 27.6 Const: General: no acute distress Orientation/consciousness: patient oriented x3 Eyes: EOM: EOMs intact bilaterally Neck: Neck: Yes supple Resp: Auscultation: diminished lung sounds Cardio: Rate: regular rate GI: Palpation (GI): Soft to palpation Neuro: General: patient oriented x3 Objective Data Labs 10/09/22 05:30 10/09/22 05:30 Labs: Laboratory Results - last 24 hr 10/08/22 10/08/22 10/09/22 16:24 20:05 05:30 WBC 7.2 RBC 2.88 L Hgb 8.1 L Hct 23.7 L MCV 82.3 MCH 28.1 MCHC 34.2 RDW 14.1 Plt Count 166 MPV 10.9 Absolute Nucleated RBC 0.000 Nucleated RBC % (auto) 0.0 Sodium Potassium Chloride Carbon Dioxide Anion Gap BUN Creatinine Estim Creat Clear Calc Estimated GFR POC Glucose 234 H 346 H Fasting Glucose Calcium 10/09/22 10/09/22 10/09/22 05:30 07:30 11:29 WBC RBC Hgb Hct MCV MCH MCHC RDW Plt Count MPV Absolute Nucleated RBC Nucleated RBC % (auto) Sodium 137 Potassium 3.7 Chloride 104 Carbon Dioxide 21 L Anion Gap 16 BUN 37 H Creatinine 3.11 H Estim Creat Clear Calc 33.9 Estimated GFR 22 POC Glucose 124 H 195 H Fasting Glucose 125 H Calcium 8.0 L Microbiology Microbiology Results: Microbiology 10/07/22 04:04 Blood - Venous Blood Culture - Preliminary Staphylococcus aureus 10/07/22 04:04 Blood - Venous Blood Culture - Preliminary No growth after 48 hours. 10/05/22 10:42 Blood - Venous Blood Culture - Final Methicillin Res Staph Aureus 10/05/22 10:38 Blood - Venous Blood Culture - Final Methicillin Res Staph Aureus Procedures Date of Service Date of Service: 10/09/22 Assessment & Plan Assessment and plan (1) Acute kidney injury superimposed on CKD: Status: Acute Assessment and Plan: Has CKD 3 at baseline SMITHA on CKD likely due to tubular injury DDX- Una infectious GN- given U/A results No reason to suspect AIN/ Obstructive Uropathy Hemodynamics stable; Vanco switched to Dapto Remains on Zosyn; For R BKA C3/C4/ Ig A levels as ordered May need renal biopsy C/W current supportive management for now Progress Note: Quality Stroke Does the patient have a stroke diagnosis?: No
[2022-10-09 15:55] VITALS: BP 175/88; PULSE 78; RESP 16; TEMP 36.3; O2SAT 98
--- NOTE | 2022-10-09 16:16 | P.DS_ITS ---
DS: Providers Provider Date of Service: 10/09/22 Date of admission: 10/05/22 18:23 Primary care physician: Jose Manuel Alicea MD Consults: 10/05/22 18:22 Consult to Infectious Diseases Routine Consulting Provider: [facility] [place] Infectious Disease Reason for consultation: concern of Osteomyelitis 10/06/22 08:07 Consult to General Surgery Routine Consulting Provider: [facility] [place] General Surgeons Reason for consultation: ?nec fascitis Right TMA site 10/06/22 08:16 Consult to Vascular Surgery Routine Consulting Provider: [facility] [place] Vascular Services Reason for consultation: right tma, ?nec fascitis 10/07/22 14:12 Addiction Medicine Routine Consulting Provider: Addiction Covering Reason for consultation: opiate 10/08/22 07:14 Consult to Nephrology Routine Consulting Provider: Gene Wilson Reason for consultation: funmilayo 10/09/22 08:32 Consult to Infectious Diseases Stat Consulting Provider: [facility] [place] Infectious Disease Reason for consultation: New daptomycin order DS: Diagnosis Discharge Diagnosis (1) Acute kidney injury superimposed on CKD: Status: Acute DS: Summary Hospital Course Hospital Course: from initial hpi: 37 years old male with PMh of IDDM, substance abuse on methadone, Hx OM post Lt BKA, Rt transmetatarsal amp who presents to the hospital with RLE pain and swelling. The patient report worsening pain, resdness over the last week or so with no reported injuries or wounds. His blood sugar has been running too high and he was taking his meds but for the last 2 days he got nausea and vomiting and couldnt keep anything in his stomach. report low grade fever and chills. no chest pain, palpitation, SOB, change in bowel habit or urinary symptoms. In ED XR was not conclusive about OM so CT scan ordered and pending at time of admission. hospital course: Patient was admitted for right TMA site cellulitis and osteomyelitis due to diabetes mellitus complicated by MRSA bacteremia. He was treated with vancomycin and Zosyn and then transitioned to daptomycin due to acute kidney injury. Blood cultures are still positive. He was seen by vascular recommended BKA. Echo did not show any vegetation. For diabetes with hyperglycemia he was given basal bolus insulin. For hyperkalemia was given low, and it resolved. For acute kidney injury his creatinine seems to be plateauing, workup for GN is in progress. For opiate dependence he was treated with methadone. Apparently, patient suddenly decided to leave against medical advice. Patient left before I could speak to him. Time Spent with Patient Time attestation: Total time managing care of this patient today ____ minutes. Discharge coordination time: Greater than 30 minutes Quality: Safe Use of Opioids Does Pt have an Active Cancer Diagnosis on the Problem List?: No Quality: Stroke Does the patient have a stroke diagnosis?: No Physical Exam Vital Signs: Vital Signs: Last Vital Signs Temp 97.3 F 10/09/22 15:55 Pulse 78 10/09/22 15:55 Resp 16 10/09/22 15:55 BP 175/88 H 10/09/22 15:55 Pulse Ox 98 10/09/22 15:55 O2 Del Method Room Air 10/09/22 15:55 O2 Flow Rate 2 10/06/22 07:42 BMI result Body Mass Index 27.6 Const: General: no acute distress Orientation/consciousness: patient oriented x3 Eyes: EOM: EOMs intact bilaterally Neck: Neck: Yes supple Resp: Auscultation: diminished lung sounds Cardio: Rate: regular rate GI: Palpation (GI): Soft to palpation Neuro: General: patient oriented x3 DS: Data Data Completed and Pending Completed studies during hospitalization [Text1]: Procedures Detachment at Left Lower Leg, Mid, Open Approach (08/17/21) Detachment at Right Foot, Partial 1st Ray, Open Approach (05/06/20) Detachment at Right Foot, Partial 2nd Ray, Open Approach (05/06/20) Drainage of Left Foot Skin, External Approach (01/31/21) Insertion of Infusion Device into Right Basilic Vein, Percutaneous Approach (01/31/21) Insertion of Infusion Device into Superior Vena Cava, Percutaneous Approach (05/17/20) Transfusion of Nonautologous Red Blood Cells into Peripheral Vein, Percutaneous Approach (08/05/21) Ultrasonography of Superior Vena Cava, Guidance (05/17/20) Labs on day of discharge: Laboratory Results - last 24 hr 10/08/22 10/08/22 10/09/22 16:24 20:05 05:30 WBC 7.2 RBC 2.88 L Hgb 8.1 L Hct 23.7 L MCV 82.3 MCH 28.1 MCHC 34.2 RDW 14.1 Plt Count 166 MPV 10.9 Absolute Nucleated RBC 0.000 Nucleated RBC % (auto) 0.0 Sodium Potassium Chloride Carbon Dioxide Anion Gap BUN Creatinine Estim Creat Clear Calc Estimated GFR POC Glucose 234 H 346 H Fasting Glucose Calcium 10/09/22 10/09/22 10/09/22 05:30 07:30 11:29 WBC RBC Hgb Hct MCV MCH MCHC RDW Plt Count MPV Absolute Nucleated RBC Nucleated RBC % (auto) Sodium 137 Potassium 3.7 Chloride 104 Carbon Dioxide 21 L Anion Gap 16 BUN 37 H Creatinine 3.11 H Estim Creat Clear Calc 33.9 Estimated GFR 22 POC Glucose 124 H 195 H Fasting Glucose 125 H Calcium 8.0 L Preliminary micro results at discharge 10/07/22 04:04 Blood Culture - Preliminary Blood - Venous Staphylococcus aureus 10/07/22 04:04 Blood Culture - Preliminary Blood - Venous No growth after 48 hours. Discharge Plan Discharge Patient Disposition: Left Against Medical Advice Discharge Diagnosis: bacteremia Referrals: Jose Manuel Alicea MD [Primary Care Provider] - 1 Week Discharge Medications: No Action metformin 500 mg tablet 1,000 mg PO DAILY insulin lispro 100 unit/mL insulin pen See Protocol SUBCUT TID Protocol: Insulin Correction Scale Less than or equal to 110 ---- Give (units): 0 111 to 150 Give (units): 0 151 to 200 Give (units): 2 201 to 250 Give (units): 4 251 to 300 Give (units): 6 301 to 350 Give (units): 8 Greater than 350 Give (units): 10 Call if Blood Glucose > : 350 ferrous sulfate 324 mg (65 mg iron) tablet,delayed release (DR/EC) 324 mg PO DAILY insulin glargine [Lantus Solostar U-100 Insulin] 100 unit/mL (3 mL) insulin pen 25 unit subcut BID methadone [Methadone Intensol] 10 mg/mL Concentrate 40 mg PO DAILY Discharge Orders: Discharge Order (Routine); Ordered 10/09/22 Ordered By: Suresh Rahman Care Plan Goals: manage infection Health Concerns: om, mrsa Plan of Treatment: cant treat left ama Assessment: see above
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
[2022-10-11 10:58] LABS: Complement C3 162 mg/dL (82-185); Immunoglobulin A 232 mg/dL (47-310)
--- NOTE | 2022-10-13 10:04 | CONS_ITS ---
DATE OF SERVICE: 10/12/2022 REASON FOR CONSULTATION: I was asked to see patient to assist in evaluation and management of the patient's acute kidney injury as reflected by a BUN and creatinine today of 32 and 3.7. He was hospitalized on the 05 of October at [facility], at which time his creatinine was 2.3 and he was evaluated by my partner, Dr. Ann on the when the creatinine has gone up to 3.3 and had a workup done concerning the cause of his acute kidney injury, which was thought to be related to an ongoing infection versus antibiotic-associated nephrotoxicity. The patient left the hospital AMA and now came back to the hospital for ongoing treatment of his diabetic foot infection involving his right foot. He had infection of the right TMA and actually underwent a right BKA yesterday on October 11 because not responding to treatment with antibiotics and local care. He had been on vancomycin, which was changed to daptomycin because of the episode of acute kidney injury. He will need prolonged course of antibiotics and I have discussed with high hospitalist that we should avoid a PICC line and he is going to have a Enriquez in place, so he can get a 4-week course of antibiotics. HISTORY OF PRESENT ILLNESS: In summary, he is a 37-year-old gentleman with a history of diabetes, insulin dependent, substance abuse, maintained on methadone, left BKA, right TMA, who presented to the hospital with right foot pain, swelling and redness consistent with an infection. He apparently on his last hospitalization when he was admitted on October 05, he had not taken his medications for a few days. He had some nausea and vomiting, came in dehydrated and had the acute kidney injury. PAST MEDICAL HISTORY: As noted above includes anemia, diabetes, acute kidney injury, foot abscess, left BKA, nonhealing foot ulcer, osteomyelitis in the past and recent admission and then left AMA, now readmitted. MEDICATIONS: His medications on admission noted in the admitting notes. ALLERGIES: HE HAS NO KNOWN DRUG ALLERGIES. SOCIAL HISTORY: He mentioned that he is a smoker and a history of substance abuse. FAMILY HISTORY: Noncontributory. PHYSICAL EXAMINATION: VITAL SIGNS: Blood pressure of 160/80 with a heart rate in the 70s. HEAD: Atraumatic and normocephalic. NECK: Supple. Mucous membranes are moist. LUNGS: Breath sounds bilaterally. CARDIAC: Regular rate and rhythm. ABDOMEN: Soft, nontender. Good bowel sounds. No CVA tenderness. EXTREMITIES: Shows the recent BKA. CURRENT MEDICATIONS: His current medications now include the daptomycin along with insulin and subcu heparin and methadone. He is also getting oxycodone for pain relief. LABORATORY DATA: Labs from today show sodium 133, potassium 4.8, chloride 100, bicarb 24, BUN 32, creatinine 3.7, blood sugar 207, calcium is 7.3. As mentioned on admission on October 05, his creatinine was 2.3, going back prior, his creatinine had been in the 1 to 1.3 range in the past. Hemoglobin 7.6, hematocrit 22.9, white blood cell count 9.5 on admission. On October 05, his hemoglobin was 9.7. He had urine studies done, which showed 2+ protein. Back in January of 2021, he had a urine protein creatinine ratio of 0.4 g of protein per gram of creatinine. A urine albumin creatinine ratio of 115 mg of albumin per gram of creatinine. IMPRESSION: THIS 37-YEAR-OLD DIABETIC WITH ACUTE KIDNEY INJURY IN THE SETTING OF NONHEALING DIABETIC INFECTION OF THE PRIOR RIGHT TRANSMETATARSAL AMPUTATION, NOW STATUS POST RIGHT [id number] AMPUTATION. 1. Acute kidney injury. This is most likely multifactorial acute tubular necrosis. He had serologies which showed C3 and C4 normal, which would suggest he does not have an infectious-associated GN, but does not completely ruled out. Obstructive uropathy needs to be ruled out because diabetics and have a neurogenic bladder, but again his clinical course would be consistent with him initially presenting with dehydration and some element of renal hypoperfusion, then further worsened by ongoing infection with infectious-associated acute tubular necrosis. He did get vancomycin and this can be associated with nephrotoxicity may have been playing a role as well. 2. Anemia. This is most likely multifactorial and he may be a candidate for EPO injections. 3. Diabetic foot infection, ultimately requiring a BKA. RECOMMENDATIONS: At this time include the followin. Bladder scan to rule out obstructive uropathy. 2. Continue to track renal function and urine output. 3. Avoid NSAIDs. 4. Obtain urinalysis, urine for eosinophils and urine protein creatinine ratio. 5. Avoid placement of a PICC line as there is a risk for him needing dialysis in his lifetime and we do not want irreversibly scar the veins in his arms that would prevent an AV fistula in the future, therefore, he should have a Enriquez in place for his prolonged course of antibiotics as required. 6. We will follow the patient closely with the team as we track his renal function. MD KASIE Truong/COLETTE / [phone]
== END 2022-10-09 16:38 | disposition left against medical advice (07) | DRG 349 ==
LOC: HO.ED 10:52 → HO.EDOVER 18:29 → HO.S3 19:01
PROVIDERS: Internal Medicine Nephrology; Nurse Practitioner Family; Admitting Provider Student in an Organized Health Care Education/Training Program; Emergency Provider Emergency Medicine; PCP Internal Medicine; Visit Provider Internal Medicine
DX: T87.43 Infection of amputation stump, right lower extremity (principal); N17.9 Acute kidney failure, unspecified; M86.171 Other acute osteomyelitis, right ankle and foot; L03.115 Cellulitis of right lower limb; R78.81 Bacteremia; E11.628 Type 2 diabetes mellitus with other skin complications; B95.62 Methicillin resistant Staphylococcus aureus infection as the cause of diseases classified elsewhere; Y83.5 Amputation of limb(s) as the cause of abnormal reaction of the patient, or of later complication, without mention of misadventure at the time of the procedure; E11.69 Type 2 diabetes mellitus with other specified complication; F11.20 Opioid dependence, uncomplicated; E11.65 Type 2 diabetes mellitus with hyperglycemia; E87.5 Hyperkalemia; Z20.822 Contact with and (suspected) exposure to COVID-19; Z89.512 Acquired absence of left leg below knee; Z79.4 Long term (current) use of insulin; Z79.84 Long term (current) use of oral hypoglycemic drugs; Z79.899 Other long term (current) drug therapy
CPT/HCPCS: 36415; 71046; 73620; 73700; 80048; 80076; 80202; 80307; 81001; 82009; 82550; 82784; 82803; 82947; 83605; 83690; 83930; 84156; 85007; 85025; 85027; 85384; 85730; 86160; 86803; 86850; 86900; 86901; 86923; 87040; 87077; 87147; 87186; 87205; 87389; 87635; 87651; 88307; 89190; 93005; 93306; 93356; 93926; 99285; J0878; J1170; J1643; J1650; J2250; J2270; J2405; J2543; J3370; P9016; Q9957

== ENCOUNTER 2022-10-09 18:28 | Inpatient (IN) | payer OTHER, SELFPAY ==
--- NOTE | 2022-10-09 18:41 | ED_ITS ---
HPI - Skin/Abscess/Foreign Bdy General Chief complaint: General Medical <SUNNY Candelario - Last Filed: 10/09/22 18:43> Stated complaint: R foot infection, amputation on tuesday <SUNNY Candelario - Last Filed: 10/09/22 18:43> Time Seen by Provider: 10/09/22 20:10 <SUNNY Candelario - Last Filed: 10/09/22 18:43> Source: patient <Caitlin Perez NP - Last Filed: 10/09/22 20:25> Mode of arrival: ambulatory <Caitlin Perez NP - Last Filed: 10/09/22 20:25> Limitations: no limitations <Caitlin Perez NP - Last Filed: 10/09/22 20:25> History of Present Illness HPI narrative: 37-year-old male presents for osteomyelitis, scheduled for a right BKA t omorrow. Patient left against medical advice earlier this afternoon from the med surge unit. <Caitlin Perez NP - Last Filed: 10/09/22 20:25> MD complaint: other (Osteomyelitis) <Caitlin Perez NP - Last Filed: 10/09/22 20:25> Onset (ago): week(s) <Ciatlin Perez NP - Last Filed: 10/09/22 20:25> Tetanus up to date: yes <Caitlin Perez NP - Last Filed: 10/09/22 20:25> Location: RLE <Caitlin Perez NP - Last Filed: 10/09/22 20:25> Severity: severe <Caitlin Perez NP - Last Filed: 10/09/22 20:25> Pain Consistency: constant <Caitlin Perez NP - Last Filed: 10/09/22 20:25> Relieving factors: none <Caitlin Perez NP - Last Filed: 10/09/22 20:25> Exacerbating factors: movement <Caitlin Perez NP - Last Filed: 10/09/22 20:25> Context: IVDA and other (Osteomyelitis) <Caitlin ePrez NP - Last Filed: 10/09/22 20:25> Related Data Home medications: Home Medications Medication Instructions Recorded Confirmed ferrous sulfate 324 mg (65 mg 324 mg PO DAILY 10/05/22 10/05/22 iron) tablet,delayed release insulin glargine 100 unit/mL (3 25 unit subcut BID 10/05/22 10/05/22 mL) subcutaneous pen (Lantus Solostar U-100 Insulin) insulin lispro 100 unit/mL See Protocol subcut TID 10/05/22 10/05/22 subcutaneous pen metformin 500 mg tablet 1,000 mg PO DAILY 10/05/22 10/05/22 methadone 10 mg/mL oral 40 mg PO DAILY 10/07/22 10/07/22 concentrate (Methadone Intensol) <SUNNY Candelario - Last Filed: 10/09/22 18:43> Allergies/Adverse reactions: Allergies Allergy/AdvReac Type Severity Reaction Status Date / Time No Known Allergies Allergy Verified 10/05/22 08:32 [No Known Allergies*] <SUNNY Candelario - Last Filed: 10/09/22 18:43> Review of Systems Review of Systems: Constitutional: Positive Fever, No Chills Cardiovascular: No Chest Pain, No SOB Respiratory: No Cough, No Dyspnea Gastrointestinal: No Nausea, No Vomiting, No Diarrhea, No abdominal Pain Genitourinary: No Dysuria, No Hematuria Musculoskeletal: positive right lower extremity pain, No Myalgias, No Joint Swelling Skin: Positive nonhealing wounds Neuro: No Weakness, No Loss of Consciousness, No Dizziness, No Headache <Caitlin Perez NP - Last Filed: 10/09/22 20:25> Yes all other systems are reviewed and are negative <Caitlin Perez NP - Last Filed: 10/09/22 20:25> [facility] Past Medical History Attestation statement: The following information was validated with the patient. <Caitlin Perez NP - Last Filed: 10/09/22 20:25> Source: old records reviewed <Caitlin Perez NP - Last Filed: 10/09/22 20:25> Medical History: Medical History Anemia Diabetes Diabetic infection of left foot Foot abscess, left Foot osteomyelitis, left History of substance use Hypergranulation Non-healing ulcer Non-healing ulcer of right foot Osteomyelitis Osteomyelitis Wound dehiscence <SUNNY Candelario - Last Filed: 10/09/22 18:43> Surgical History: Surgical History History of appendectomy History of carpal tunnel surgery of left wrist History 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 <SUNNY Candelario - Last Filed: 10/09/22 18:43> Family History Family History: Family History Mother Breast cancer CVD (cardiovascular disease) Diabetes Cancer Father Diabetes CVD (cardiovascular disease) <SUNNY Candelario - Last Filed: 10/09/22 18:43> Social History Social History: Social History Household Members: Significant Other and Children Housing: Apartment Housing Other:: patient states his belongings are in his truck Do you presently have visiting nurse or other home services: No Unable to assess alcohol history related to: Unknown Alcohol intake: never Patient Tobacco Use Status: Current everyday Tobacco user Tobacco use type: Cigarette Cigarette Packs Per Day: 0.5 Cigarettes Per Day: 10 Years Smoked: 30 e-Cigarette/Vaping Use: Never Used Second Hand Smoke Exposure: No Substance Use Type: Heroin and IV Drugs Advance Directives Date on File: 08/05/21 service: No Current occupational status: unemployed <SUNNY Candelario - Last Filed: 10/09/22 18:43> Physical Exam Vital Signs: Vital Signs: Last Vital Signs Temp 99 F 10/09/22 18:42 Pulse 102 H 10/09/22 18:42 Resp 18 10/09/22 18:42 BP 176/76 H 10/09/22 18:42 Pulse Ox 98 10/09/22 18:42 O2 Del Method Room Air 10/09/22 18:42 BMI result Body Mass Index 27.8 <SUNNY Candelario Last Filed: 10/09/22 18:43> Vital Signs: Last Vital Signs Temp 99 F 10/09/22 18:42 Pulse 102 H 10/09/22 18:42 Resp 18 10/09/22 18:42 BP 176/76 H 10/09/22 18:42 Pulse Ox 98 10/09/22 18:42 O2 Del Method Room Air 10/09/22 18:42 BMI result Body Mass Index 27.8 <Caitlin Perez NP - Last Filed: 10/09/22 20:25> Appearance: Alert. Oriented X3. Moderate distress. Eyes: Pupils equal, round and reactive to light. Neck: Normal inspection. Neck supple. CVS: Normal heart rate and rhythm. Pulses normal. Respiratory: No respiratory distress. Breath sounds normal. Skin: Skin warm and dry. Normal skin color. Normal skin turgor. Extremities: Known osteomyelitis to the right lower extremity Neuro: No motor deficit. No sensory deficit. Cranial nerves 2-12 intact <Caitlin Perez NP - Last Filed: 10/09/22 20:25> Course Course Course Narrative: This is an RME: Additional HPI, ROS, PE not included below will be deferred to primary provider. 37 yo male with history of IDDM, former substance user on methadone, osteomyelitis s/p L BKA, osteomyelitis right foot s/p transmetarsal amputation of foot here with right lower extremity swelling/redness x 5 days with no known injury or trauma.? Was addmitted to this hospital and left AMA earlier today. Was scheudled to have surgery by Dr. Mendoza PE - To the right foot/ankle there is swelling/erythema/warmth. 2+ DP/PT pulses. No wound seen Plan- back to waiting room no need for further labs as he had some earlier today @ 530 this morning <SUNNY Candelario - Last Filed: 10/09/22 18:43> This is an RME: Additional HPI, ROS, PE not included below will be deferred to primary provider. 37 yo male with history of IDDM, former substance user on methadone, osteomyelitis s/p L BKA, osteomyelitis right foot s/p transmetarsal amputation of foot here with right lower extremity swelling/redness x 5 days with no known injury or trauma.? Was addmitted to this hospital and left AMA earlier today. Was scheudled to have surgery by Dr. Kelly TORIBIO - To the right foot/ankle there is swelling/erythema/warmth. 2+ DP/PT pulses. No wound seen Plan- back to waiting room no need for further labs as he had some earlier today @ 530 this morning 20:21 discussion with hospitalist, plan of care is to start daptomycin, no need for further lab values. Patient will be admitted with plan for right BKA natalie orrow. Review of records indicate that Dr. Lira consult with this patient on 10/06/2022 for vancomycin induced kidney injury, switched over to daptomycin. <Caitlin Perez NP - Last Filed: 10/09/22 20:25> Consultations Consultation #1: Hospitalist <Caitlin Perez NP - Last Filed: 10/09/22 20:25> Time: 20:21 <Caitlin Perez NP - Last Filed: 10/09/22 20:25> Daptomycin <Caitlin Perez NP - Last Filed: 10/09/22 20:25> Medical Decision Making Differential Diagnosis Differential Diagnoses: The differential diagnosis associated with the presentation includes <Caitlin Perez NP - Last Filed: 10/09/22 20:25> Osteomyelitis <Caitlin Perez NP - Last Filed: 10/09/22 20:25> Admission/Observation Consideration of admission/observation: Escalation of care including admission/observation considered <Caitlin Perez NP - Last Filed: 10/09/22 20:25> Plan is for admission <Caitlin Perez NP - Last Filed: 10/09/22 20:25> Consult Healthcare Provider Management of the patient was discussed with: Hospitalist <Caitlin Perez NP - Last Filed: 10/09/22 20:25> Lab Data MDM Lab Attestation statement: I reviewed the patient's lab results. <Caitlin Perez NP - Last Filed: 10/09/22 20:25> Labs drawn this morning <Caitlin Perez NP - Last Filed: 10/09/22 20:25> Labs: Lab Results 10/09/22 Range/Units 18:54 COVID-19 ([facility]) Negative (Negative) COVID-19 Clin Com See Note <SUNNY Candelario - Last Filed: 10/09/22 18:43> Lab Results 10/09/22 Range/Units 18:54 COVID-19 ([facility]) Negative (Negative) COVID-19 Clin Com See Note <Caitlin Perez NP - Last Filed: 10/09/22 20:25> External Record Review External record reviewed: Inpatient record, Outpatient record, Prior outpatient labs and Prior outpatient radiology <Caitlin Perez NP - Last Filed: 10/09/22 20:25> Chronic Conditions Patient?s care impacted by: Other (IVDA) <Caitlin Perez NP - Last Filed: 10/09/22 20:25> Discharge Plan Discharge Prescriptions: No Action metformin 500 mg tablet 1,000 mg PO DAILY insulin lispro 100 unit/mL insulin pen See Protocol SUBCUT TID Protocol: Insulin Correction Scale Less than or equal to 110 ---- Give (units): 0 111 to 150 Give (units): 0 151 to 200 Give (units): 2 201 to 250 Give (units): 4 251 to 300 Give (units): 6 301 to 350 Give (units): 8 Greater than 350 Give (units): 10 Call MD if Blood Glucose > : 350 ferrous sulfate 324 mg (65 mg iron) tablet,delayed release (DR/EC) 324 mg PO DAILY insulin glargine [Lantus Solostar U-100 Insulin] 100 unit/mL (3 mL) insulin pen 25 unit subcut BID methadone [Methadone Intensol] 10 mg/mL Concentrate 40 mg PO DAILY <SUNNY Candelario - Last Filed: 10/09/22 18:43>
[2022-10-09 18:42] VITALS: BP 176/76; PULSE 102; RESP 18; TEMP 37.2; O2SAT 98; BMI 27.8
[2022-10-09 19:15] LABS: COVID-19 Test Negative (Negative); IDNOW Serial# 08D9AD1C
--- NOTE | 2022-10-09 20:20 | P.HPHOSP_ITS ---
History of Present Illness Date of Service: 10/09/22 Attending physician on admission: Margoth Atkins Chief Complaint: I came back for treatment This is a 37-year-old male with a past medical history as noted below presented to the emergency department after he left this hospital today against medical advice today. Patient was admitted to this facility on 10/05/2022 and left AMA today and 10/08/2022 where he was being treated for right TMA site cellulitis and osteomyelitis due to diabetes mellitus complications and status post bacteremia. Patient returns back to the hospital for continued treatment and planned amputation. Currently denying increased pain or drainage from wound, denies chest or abdominal pain , illicit substance use or sick or potential COVID exposure/contacts. 10/09/2021 lab results: No leukocytosis on CBC, random glucose 125, BUN/creatinine 37/3.11. The patient will be readmitted and treated, vascular we reconsulted. Review of Systems Review of Systems: A complete 12 point review of systems was performed and are negative if not noted in HPI. [facility] Medical History Anemia Diabetes Diabetic infection of left foot Foot abscess, left Foot osteomyelitis, left History of substance use Hypergranulation Non-healing ulcer Non-healing ulcer of right foot Osteomyelitis Osteomyelitis Wound dehiscence Family History Mother Breast cancer CVD (cardiovascular disease) Diabetes Cancer Father Diabetes CVD (cardiovascular disease) Surgical History History of appendectomy History of carpal tunnel surgery of left wrist History 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 Social History Household Members: Significant Other and Children Housing: Apartment Housing Other:: patient states his belongings are in his truck Do you presently have visiting nurse or other home services: No Unable to assess alcohol history related to: Unknown Alcohol intake: never Patient Tobacco Use Status: Tobacco use Unknown Tobacco use type: Cigarette Cigarette Packs Per Day: 0.5 Cigarettes Per Day: 10 Years Smoked: 30 e-Cigarette/Vaping Use: Never Used Second Hand Smoke Exposure: No Substance Use Type: Heroin and IV Drugs Advance Directives: Yes Advance Directives on File: Yes Advance Directives Date on File: 08/05/21 Nutrition Risks: No Nutritional Risk service: No Current occupational status: unemployed Meds Allergies Allergy/AdvReac Type Severity Reaction Status Date / Time No Known Allergies Allergy Verified 10/05/22 08:32 [No Known Allergies*] Active Medications: Current Medications Daptomycin 544.308 mg/ Sodium (Chloride) 60.8862 mls @ 100 mls/hr IV ONCE ONE Stop: 10/09/22 20:49 Pharmacy Consult (Consult Rx Perform Med Rec) 1 each MISCELLANE ONCE PRN PRN Reason: Consult order Home Medications Medication Instructions Recorded Confirmed Last Taken Type ferrous sulfate 324 mg (65 mg 324 mg PO DAILY 10/05/22 10/09/22 Unknown History iron) tablet,delayed release insulin glargine 100 unit/mL (3 25 unit subcut BID 10/05/22 10/09/22 Unknown History mL) subcutaneous pen (Lantus Solostar U-100 Insulin) insulin lispro 100 unit/mL See Protocol subcut TID 10/05/22 10/09/22 Unknown History subcutaneous pen metformin 500 mg tablet 1,000 mg PO DAILY 10/05/22 10/09/22 Unknown History methadone 10 mg/mL oral 40 mg PO DAILY 10/07/22 10/09/22 10/09/22 History concentrate (Methadone Intensol) Physical Exam Vital Signs and Narrative: Vital Signs: Last Vital Signs Temp 99 F 10/09/22 18:42 Pulse 102 H 10/09/22 18:42 Resp 18 10/09/22 18:42 BP 176/76 H 10/09/22 18:42 Pulse Ox 98 10/09/22 18:42 O2 Del Method Room Air 10/09/22 18:42 BMI result Body Mass Index 27.8 Const: Other: General: Appears stated age, in no acute distress, answers questions accurately and appropriately. Skin: Warm no obvious lesions or bruises. See extremity exam for further details Cardiology: Tachycardic, no murmurs, rubs, gallops or clicks, no JVD or carotid bruits appreciated Respiratory: Lungs CTAB, no inspiratory wheezing, rales or rhonchi, no increased accessory muscle use noted Abdomen: Soft, non distended, rounded, nontender, bowel sounds active in all 4 quadrants, no abdominal guarding or [place] sign Extremity: Left BKA, right transmetatarsal amp with dressing applied, there is some purulent drainage noted present on dressing which is crusted in place- patient refusing dressing to be taken down at this time until bandages soaked. Neuro: Alert and oriented x3, no obvious focal deficits Psych: Calm, appropriate, follows commands, no agitation restlessness noted Results Labs Labs: Laboratory Results - last 24 hr 10/09/22 18:54 COVID-19 ([facility]) Negative COVID-19 Clin Com See Note Assessment and Plan (1) Cellulitis of foot, right: Status: Acute (2) Osteomyelitis: Status: Acute Plan 37 years old male re-admitted after leaving AMA today with right TMA site cellulitis and osteomyelitis. ACUTE ISSUES: Right TMA site cellulitis and osteomyelitis MRSA bacteremia - Previous CT showed air - Vascular reconsulted, patient had bedside I & D 10/07/2022, plan for right BKA on 10/11/2022 - Recent echocardiogram did not reveal vegetation - Continue Zosyn and daptomycin which has been rounded to 700 mg q24h (Per Dr Lira), this was given prior to patient leaving AMA today- next dose tomorrow a.m. - Follow-up blood cultures Insulin-dependent diabetes mellitus with hyperglycemia - Lantus 30 units subQ b.i.d. - Insulin sliding scale with nutrition. Hypoglycemia protocol in place. - Diabetic diet SMITHA - Creatinine 3.11, will receive 1 L IV fluids. follow BMP CHRONIC LONGSTANDING ISSUES: Opioid dependence-patient denying drug use when he left AMA. methadone continued per previous psychiatry recommendations at 40 mg daily-however will add on drug tox. Other: DVT prophylaxis-heparin subQ b.i.d. Patient is a full code Emergency contact is patient's significant other [facility], Time Spent With Patient Time: Total time managing care of this patient today ____ minutes. Quality Stroke Does the patient have a stroke diagnosis?: No VTE Prior VTE?: No VTE Risk Level:: Medical - moderate - high VTE Device Contraindication: N/A - Device Ordered VTE Drug Contraindication: N/A - Med Ordered
--- NOTE | 2022-10-09 21:26 | PHA.MEDREC ---
Pharmacy Consult ? Medication Reconciliation Pharmacy has completed the medication reconciliation. Patient left AMA, med rec done on 10/05. Methadone verification from 10/05 for 40mg. Last dose was 10/09 José Miguel
--- NOTE | 2022-10-09 21:30 | PC.NURSE ---
Rn to RN report given to JOHNNY Leary. Pt being transferred to room 372 and aware of plan of care.
[2022-10-09 21:40] LABS: Glucose, Whole Blood 262 mg/dL (60-115)
[2022-10-09 21:41] VITALS: BP 121/63; PULSE 85; RESP 16; TEMP 37.1; O2SAT 97
[2022-10-09] MEDS: Piperacillin Sodium/Tazobactam 3.375 GM in 0.9 % Sodium Chloride 50 ML IV (21:54)
[2022-10-09] MEDS: Insulin Glargine,Hum.rec.anlog 100 UNIT/ML 10 ML VIAL 30 UNIT SUBCUT (21:54)
[2022-10-09] MEDS: Heparin Sodium,Porcine 5,000 UNIT/ML VIAL 5000 UNIT SUBCUT (21:54)
[2022-10-09] MEDS: Insulin Lispro 100 UNIT/ML 3 ML VIAL SUBCUT (21:55)
[2022-10-09] MEDS: 0.9 % Sodium Chloride 1,000 ML 100 ML IVCONT (21:55)
[2022-10-09] MEDS: Docusate Sodium 100 MG CAPSULE PO (21:55)
[2022-10-09 22:27] VITALS: BP 142/68; PULSE 88; RESP 20; TEMP 36.7; O2SAT 100
[2022-10-10 03:11] VITALS: BP 139/65; PULSE 82; RESP 18; TEMP 36.9; O2SAT 95
[2022-10-10] MEDS: Piperacillin Sodium/Tazobactam 3.375 GM in 0.9 % Sodium Chloride 50 ML IV ×2 (03:17→08:44)
[2022-10-10 06:07] LABS: Hematocrit 23.4 % (42.0-52.0); Hemoglobin 7.8 g/dl (14.0-18.0); Mean Corpuscular HGB Conc 33.3 g/dl (31.0-36.0); Mean Corpuscular Volume 83.9 fL (80.0-98.0); Mean Platelet Volume 10.7 fL (9.4-12.4); Platelet Count 215 X10*3/uL (160-400); Red Blood Count 2.79 X10*6/uL (4.60-5.80); Red Cell Distribution Width 14.6 % (11.0-16.0); White Blood Count 8.4 X10*3/uL (4.8-10.8)
[2022-10-10 06:49] LABS: Anion Gap 17 (12-20); Blood Urea Nitrogen 33 mg/dL (9-16); Calcium 7.8 mg/dL (8.4-10.2); Carbon Dioxide 21 mmol/L (22-29); Chloride 103 mmol/L (96-108); Creatinine Clr Calc Pharmacy 34.9; Estimated Glomerular Filt Rate 21; Glucose Random 61 mg/dL (60-115); Potassium 4.1 mmol/L (3.3-5.1); Sodium 137 mmol/L (135-145)
[2022-10-10 07:37] LABS: Glucose, Whole Blood 65 mg/dL (60-115)
[2022-10-10 08:12] VITALS: BP 116/58; PULSE 85; RESP 18; TEMP 36.1; O2SAT 94
[2022-10-10] MEDS: Docusate Sodium 100 MG CAPSULE PO ×2 (08:43→21:24)
[2022-10-10] MEDS: methADONE HCl 20 MG/2 ML ORAL.CONC 40 MG PO (08:43)
--- NOTE | 2022-10-10 10:15 | P.PNIM_ITS ---
Subjective Subjective Date of Service: 10/10/22 Interval History: no complaints Physical Exam Vital Signs: Vital Signs: Last Vital Signs Temp 97.0 F 10/10/22 08:12 Pulse 85 10/10/22 08:12 Resp 18 10/10/22 08:12 BP 116/58 L 10/10/22 08:12 Pulse Ox 94 10/10/22 08:12 O2 Del Method Room Air 10/10/22 08:12 BMI result Body Mass Index 27.8 Appearance: Alert. Oriented X3. Moderate distress. Eyes: Pupils equal, round and reactive to light. Neck: Normal inspection. Neck supple. CVS: Normal heart rate and rhythm. Pulses normal. Respiratory: No respiratory distress. Breath sounds normal. Skin: Skin warm and dry. Normal skin color. Normal skin turgor. Extremities: Known osteomyelitis to the right lower extremity Neuro: No motor deficit. No sensory deficit. Cranial nerves 2-12 intact Objective Data Active Medications Acetaminophen (Acetaminophen Supp 650 Mg Supp.Rect) 650 mg [place] Q6H PRN PRN Reason: Pain, Mild (Pain Scale 1-3) Docusate Sodium (Docusate Sodium 100 Mg Capsule) 100 mg PO BID [facility] Last Admin: 10/10/22 08:43 Dose: 100 mg Documented By: FERNANDA Glucose (Glucose Gel 15 Gm Gel..Gram.) 15 gm PO Q15M PRN; Protocol PRN Reason: per Hypoglycemia Standing Ord. Heparin Sodium (Porcine) (Heparin Sodium,Porcine 5,000 Unit/Ml Vial) 5,000 unit SUBCUT Q12H [facility] Last Admin: 10/09/22 21:54 Dose: 5,000 unit Documented By: NORA Piperacillin Sod/Tazobactam (Sod 3.375 gm/ Sodium Chloride) 50 mls @ 100 mls/hr IV Q6H [facility] Last Infusion: 10/10/22 09:29 Dose: 0 mls/hr Documented By: FERNANDA Daptomycin 700 mg/ Sodium (Chloride) 64 mls @ 99.182 mls/hr IV Q24H [facility] Dextrose (D10) 250 mls @ 750 mls/hr IV Q15M PRN; Protocol PRN Reason: per Hypoglycemia Standing Ord. Insulin Glargine (Insulin Glargine,Hum.Rec.Anlog 100 Unit/Ml 10 Ml Vial) 30 unit SUBCUT BID [facility] Last Admin: 10/10/22 07:45 Dose: Not Given Documented By: FERNANDA Non-Admin Reason: poc 65, held by Insulin Human Lispro (Insulin Lispro 100 Unit/Ml 3 Ml Vial) 0 unit SUBCUT QIDACHS [facility]; Protocol Last Admin: 10/10/22 07:41 Dose: Not Given Documented By: FERNANDA Non-Admin Reason: No Insulin Coverage Methadone HCl (Methadone Hcl 20 Mg/2 Ml Oral.Conc) 40 mg PO DAILY [facility] Last Admin: 10/10/22 08:43 Dose: 40 mg Documented By: FERNANDA Ondansetron HCl (Ondansetron Hcl 4 Mg/2 Ml Vial) 4 mg IVPUSH Q8H PRN PRN Reason: Nausea and Vomiting Pharmacy Consult (Consult Rx Perform Med Rec) 1 each MISCELLANE ONCE PRN PRN Reason: Consult order Senna (Sennosides 8.6 Mg Tablet) 17.2 mg PO BEDTIME PRN PRN Reason: Constipation Sodium Chloride (0.9 % Sodium Chloride Flush 3 Ml Syringe) 3 ml IVFLUSH QSHIFT [facility] Last Admin: 10/10/22 07:26 Dose: Not Given Documented By: FERNANDA Non-Admin Reason: IV Running Labs 10/10/22 05:38 10/10/22 05:38 Labs: Laboratory Results - last 24 hr 10/09/22 10/09/22 10/10/22 18:54 21:36 05:38 MCV 83.9 MCH 28.0 MCHC 33.3 RDW 14.6 Plt Count 215 D MPV 10.7 Absolute Nucleated RBC 0.000 Nucleated RBC % (auto) 0.0 Anion Gap Estim Creat Clear Calc Estimated GFR POC Glucose 262 H Random Glucose Calcium COVID-19 (MARY KATE) Negative COVID-19 Clin Com See Note 10/10/22 10/10/22 05:38 07:31 MCV MCH MCHC RDW Plt Count MPV Absolute Nucleated RBC Nucleated RBC % (auto) Anion Gap 17 Estim Creat Clear Calc 34.9 Estimated GFR 21 POC Glucose 65 Random Glucose 61 Calcium 7.8 L COVID-19 (MARY KATE) COVID-19 Clin Com Assessment and Plan (1) Cellulitis of foot, right: Status: Acute Plan 37 years old male with PMh of IDDM, opiate dependence, Hx OM post Lt BKA, Rt transmetatarsal amp who presented to the hospital with RLE pain and swelling. right TMA site cellulitis and osteomyelitis due to DM complicated by MRSA bacteremia CT with air vascular appreciated - s/p bedside I and D 10/07/22, plan for right bka on 10/11/22 no obvious vegetation on TTE ID appreciated, will continue zosyn, changed vanc to dapto PVD seen on duplex follow up repeat cultures Hyperglycemia in IDDM Increased Lantus to 30 bid SSI diabetic diet Hyperkalemia Lokelma given, resolved SMITHA stable today changed to dapto nephro following opiate dependence methadone DVT PPx Lovenox full code reason for continued hospitalization:bacteremia Time Spent With Patient Time: Total time managing care of this patient today ____ minutes. Quality Stroke Does the patient have a stroke diagnosis?: No VTE Prior VTE?: No VTE Risk Level:: Medical - moderate - high VTE Device Contraindication: N/A - Device Ordered VTE Drug Contraindication: N/A - Med Ordered
[2022-10-10] MEDS: DAPTOmycin 700 MG in 0.9 % Sodium Chloride 50 ML 99.18 MG IV (10:55)
[2022-10-10 11:21] LABS: Glucose, Whole Blood 88 mg/dL (60-115)
[2022-10-10] MEDS: Piperacillin Sodium/Tazobactam 2.25 GM in 0.9 % Sodium Chloride 50 ML IV ×2 (13:41→21:20)
--- NOTE | 2022-10-10 15:11 | MHC.CM.PN ---
PT LEFT AMA AND RETURNED YESTERDAY PT LIVES IN A HOTEL WITH HIS 15 YO SON HE IS INDEPENDENT WITH CARE AND USES A CANE AND PROSTHETIC TO AMBULATE HE HAS A HCP ON FILE PCP: YANA FISHER DCP TBD PENDING PT EVAL PT SCHEDULED TO HAVE A SECOND BKA ON TUESDAY
[2022-10-10 16:00] VITALS: BP 117/69; PULSE 78; RESP 20; TEMP 36.4; O2SAT 99
[2022-10-10 16:55] LABS: Glucose, Whole Blood 90 mg/dL (60-115)
[2022-10-10] MEDS: 0.9 % Sodium Chloride Flush 3 ML SYRINGE IVFLUSH ×2 (17:39→21:24)
[2022-10-10 20:00] VITALS: BP 132/69; PULSE 80; RESP 18; TEMP 36.7; O2SAT 97
[2022-10-10 20:42] LABS: Glucose, Whole Blood 116 mg/dL (60-115)
[2022-10-10 21:25] LABS: Appearance Urine Cloudy; Color Urine Yellow; Glucose Urine UA Negative (Negative); Leukocyte Esterase Urine Trace (Negative); Nitrite Urine Negative (Negative); Specific Gravity - Urine 1.015 (1.005-1.025); UMIC TRIGGER UA YES; Urine Blood Negative (Negative); Urine Ketones Negative (Negative); Urine Protein 100 (2+) mg/dL (Neg-Trace)
[2022-10-10 21:30] LABS: Bacteria Urine None Seen (None Seen); Hyaline Casts Urine 0-2 /LPF (0-2); RBC Urine 0-2 /HPF (0-2); WBC Urine 0-5 /HPF (0-5)
[2022-10-10 21:39] LABS: Amphetamine Screen Urine Not Detected (Not Detect); Barbiturates, Urine Not Detected (Not Detect); Benzodiazepines Screen Urine Not Detected (Not Detect); Cannabinoid Screen Urine Not Detected (Not Detect); Cocaine Screen Urine Not Detected (Not Detect); Fentanyl, urine POSITIVE (Not Detect); Opiate Screen Urine Not Detected (Not Detect); Phencyclidine Screen Urine Not Detected (Not Detect)
[2022-10-11] VITALS (12 sets, daily range): BP systolic 121–152; BP diastolic 66–87; PULSE 70–79; RESP 8–18; TEMP 36.1–36.7; O2SAT 94–100
[2022-10-11] MEDS: Piperacillin Sodium/Tazobactam 2.25 GM in 0.9 % Sodium Chloride 50 ML IV ×4 (02:50→19:48)
[2022-10-11 03:06] LABS: Hematocrit 21.4 % (42.0-52.0); Hemoglobin 7.1 g/dl (14.0-18.0); Mean Corpuscular HGB Conc 33.2 g/dl (31.0-36.0); Mean Corpuscular Volume 84.3 fL (80.0-98.0); Mean Platelet Volume 9.4 fL (9.4-12.4); Platelet Count 234 X10*3/uL (160-400); Red Blood Count 2.54 X10*6/uL (4.60-5.80); Red Cell Distribution Width 15.2 % (11.0-16.0); White Blood Count 6.9 X10*3/uL (4.8-10.8)
[2022-10-11 07:29] LABS: Anion Gap 16 (12-20); Blood Urea Nitrogen 34 mg/dL (9-16); Calcium 7.8 mg/dL (8.4-10.2); Carbon Dioxide 23 mmol/L (22-29); Chloride 101 mmol/L (96-108); Creatinine Clr Calc Pharmacy 32.9; Estimated Glomerular Filt Rate 20; Glucose Fasting 108 mg/dL (60-99); Potassium 4.8 mmol/L (3.3-5.1); Sodium 135 mmol/L (135-145)
[2022-10-11 07:33] LABS: Glucose, Whole Blood 119 mg/dL (60-115)
[2022-10-11] MEDS: methADONE HCl 20 MG/2 ML ORAL.CONC 40 MG PO (08:18)
[2022-10-11] MEDS: 0.9 % Sodium Chloride Flush 3 ML SYRINGE IVFLUSH ×3 (08:19→21:15)
[2022-10-11] MEDS: DAPTOmycin 700 MG in 0.9 % Sodium Chloride 50 ML 99.18 MG IV (09:37)
--- NOTE | 2022-10-11 09:57 | P.CONAN_ITS ---
HPI - Anesthesia Eval Consult details Narrative: 37 yo male patient for Right leg below knee amputation PMFSH Active Problems Active Problems: All Active Problems (Updated 10/11/22 @ 10:12 by Glory Marquez MD) Acute kidney injury superimposed on CKD (Acute) Diabetic ulcer of right lower leg (Acute) SMITHA (acute kidney injury) (Acute) Leukocytosis (Acute) Hyperglycemia (Acute) Cellulitis of foot, right (Acute) Wound dehiscence (Acute) Hypergranulation (Acute) Status post below-knee amputation of left lower extremity (Acute) Foot abscess, left (Acute) Osteomyelitis (Acute) S/P transmetatarsal amputation of foot (Acute) Osteomyelitis of ankle or foot, right, acute (Acute) Ulcer of left foot (Acute) Denies JALIL Signed out AMA yesterday but returned. Toxicology screen positive for fentanyl yesterday and also positive on admission 10/05/22 Past Medical History Medical History Anemia Diabetes Diabetic infection of left foot Foot abscess, left Foot osteomyelitis, left History of substance use Hypergranulation Non-healing ulcer Non-healing ulcer of right foot Osteomyelitis Osteomyelitis Wound dehiscence Family History Family History Mother Breast cancer CVD (cardiovascular disease) Diabetes Cancer Father Diabetes CVD (cardiovascular disease) Family history of problems with anesthesia: No Surgical History Surgical History History of appendectomy History of carpal tunnel surgery of left wrist History 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 History of Problems with Anesthesia: No Social History Social History Household Members: Children Housing: Apartment Housing Other:: patient states his belongings are in his truck Do you presently have visiting nurse or other home services: No Unable to assess alcohol history related to: Unknown Alcohol intake: never Patient Tobacco Use Status: Current everyday Tobacco user Tobacco use type: Cigarette Cigarette Packs Per Day: 0.5 Cigarettes Per Day: 10 Years Smoked: 23 e-Cigarette/Vaping Use: Never Used Second Hand Smoke Exposure: No Substance Use Type: Heroin and IV Drugs Advance Directives Date on File: 08/05/21 service: No Current occupational status: unemployed and disabled Meds Allergies Allergy/AdvReac Type Severity Reaction Status Date / Time No Known Allergies Allergy Verified 10/05/22 08:32 [No Known Allergies*] Active Medications: Current Medications Acetaminophen (Acetaminophen Supp 650 Mg Supp.Rect) 650 mg [place] Q6H PRN PRN Reason: Pain, Mild (Pain Scale 1-3) Docusate Sodium (Docusate Sodium 100 Mg Capsule) 100 mg PO BID [facility] Last Admin: 10/11/22 08:25 Dose: Not Given Glucose (Glucose Gel 15 Gm Gel..Gram.) 15 gm PO Q15M PRN; Protocol PRN Reason: per Hypoglycemia Standing Ord. Heparin Sodium (Porcine) (Heparin Sodium,Porcine 5,000 Unit/Ml Vial) 5,000 unit SUBCUT Q12H [facility] Last Admin: 10/09/22 21:54 Dose: 5,000 unit Daptomycin 700 mg/ Sodium (Chloride) 64 mls @ 99.182 mls/hr IV Q24H [facility] Last Admin: 10/11/22 09:37 Dose: 99.18 mls/hr Dextrose (D10) 250 mls @ 750 mls/hr IV Q15M PRN; Protocol PRN Reason: per Hypoglycemia Standing Ord. Piperacillin Sod/Tazobactam (Sod 2.25 gm/ Sodium Chloride) 50 mls @ 100 mls/hr IV Q6H [facility] Last Infusion: 10/11/22 09:02 Dose: Infused Insulin Glargine (Insulin Glargine,Hum.Rec.Anlog 100 Unit/Ml 10 Ml Vial) 30 unit SUBCUT BID [facility] Last Admin: 10/11/22 08:25 Dose: Not Given Insulin Human Lispro (Insulin Lispro 100 Unit/Ml 3 Ml Vial) 0 unit SUBCUT QIDACHS [facility]; Protocol Last Admin: 10/11/22 08:25 Dose: Not Given Methadone HCl (Methadone Hcl 20 Mg/2 Ml Oral.Conc) 40 mg PO DAILY [facility] Last Admin: 10/11/22 08:18 Dose: 40 mg Ondansetron HCl (Ondansetron Hcl 4 Mg/2 Ml Vial) 4 mg IVPUSH Q8H PRN PRN Reason: Nausea and Vomiting Pharmacy Consult (Consult Rx Perform Med Rec) 1 each MISCELLANE ONCE PRN PRN Reason: Consult order Senna (Sennosides 8.6 Mg Tablet) 17.2 mg PO BEDTIME PRN PRN Reason: Constipation Sodium Chloride (0.9 % Sodium Chloride Flush 3 Ml Syringe) 3 ml IVFLUSH QSHIFT [facility] Last Admin: 10/11/22 08:19 Dose: 3 ml Home Medications Medication Instructions Recorded Confirmed Last Taken Type ferrous sulfate 324 mg (65 mg 324 mg PO DAILY 10/05/22 10/09/22 Unknown History iron) tablet,delayed release insulin glargine 100 unit/mL (3 25 unit subcut BID 10/05/22 10/09/22 Unknown H istory mL) subcutaneous pen (Lantus Solostar U-100 Insulin) insulin lispro 100 unit/mL See Protocol subcut TID 10/05/22 10/09/22 Unknown History subcutaneous pen metformin 500 mg tablet 1,000 mg PO DAILY 10/05/22 10/09/22 Unknown History methadone 10 mg/mL oral 40 mg PO DAILY 10/07/22 10/09/22 10/09/22 History concentrate (Methadone Intensol) Exam Exam Date and Time: October 11, 2022 0957 Height,Weight and Vital Signs: Height 5 ft 11 in Weight 90.718 kg Last Vital Signs Temp 97.1 F 10/11/22 07:21 Pulse 79 10/11/22 07:21 Resp 18 10/11/22 07:21 BP 145/79 H 10/11/22 07:21 Pulse Ox 94 10/11/22 07:21 O2 Del Method Room Air 10/11/22 07:21 Pertinent Lab Results Pertinent Lab Results: Laboratory Tests 10/09/22 10/09/22 10/10/22 18:54 21:36 05:38 WBC 8.4 RBC 2.79 L Hgb 7.8 L Hct 23.4 L MCV 83.9 MCH 28.0 MCHC 33.3 RDW 14.6 Plt Count 215 D MPV 10.7 Absolute Nucleated RBC 0.000 Nucleated RBC % (auto) 0.0 Sodium Potassium Chloride Carbon Dioxide Anion Gap BUN Creatinine Estim Creat Clear Calc Estimated GFR POC Glucose 262 H Random Glucose Fasting Glucose Calcium Urine Color Urine Appearance Urine pH Ur Specific [place] Urine Protein Urine Glucose (UA) Urine Ketones Urine Blood Urine Nitrite Ur Leukocyte Esterase Urine RBC Urine WBC Ur Squamous Epith Cells Urine Bacteria Hyaline Casts Urine Opiates Screen Urine Fentanyl Screen Ur Barbiturates Screen Ur Phencyclidine Scrn Ur Amphetamines Screen U Benzodiazepines Scrn Urine Cocaine Screen U Marijuana (THC) Screen COVID-19 (MARY KATE) Negative COVID-19 [employer] Com See Note Blood Type Antibody Screen 10/10/22 10/10/22 10/10/22 05:38 07:31 11:16 WBC RBC Hgb Hct MCV MCH MCHC RDW Plt Count MPV Absolute Nucleated RBC Nucleated RBC % (auto) Sodium 137 Potassium 4.1 Chloride 103 Carbon Dioxide 21 L Anion Gap 17 BUN 33 H Creatinine 3.27 H Estim Creat Clear Calc 34.9 Estimated GFR 21 POC Glucose 65 88 Random Glucose 61 Fasting Glucose Calcium 7.8 L Urine Color Urine Appearance Urine pH Ur Specific [place] Urine Protein Urine Glucose (UA) Urine Ketones Urine Blood Urine Nitrite Ur Leukocyte Esterase Urine RBC Urine WBC Ur Squamous Epith Cells Urine Bacteria Hyaline Casts Urine Opiates Screen Urine Fentanyl Screen Ur Barbiturates Screen Ur Phencyclidine Scrn Ur Amphetamines Screen U Benzodiazepines Scrn Urine Cocaine Screen U Marijuana (THC) Screen COVID-19 (MARY KATE) COVID-19 [employer] Com Blood Type Antibody Screen 10/10/22 10/10/22 10/10/22 16:43 20:37 21:05 WBC RBC Hgb Hct MCV MCH MCHC RDW Plt Count MPV Absolute Nucleated RBC Nucleated RBC % (auto) Sodium Potassium Chloride Carbon Dioxide Anion Gap BUN Creatinine Estim Creat Clear Calc Estimated GFR POC Glucose 90 116 H Random Glucose Fasting Glucose Calcium Urine Color Yellow Urine Appearance Cloudy Urine pH 5.0 Ur Specific [place] 1.015 Urine Protein 100 (2+) H Urine Glucose (UA) Negative Urine Ketones Negative Urine Blood Negative Urine Nitrite Negative Ur Leukocyte Esterase Trace H Urine RBC 0-2 Urine WBC 0-5 Ur Squamous Epith Cells 3-5 Urine Bacteria None Seen Hyaline Casts 0-2 Urine Opiates Screen Urine Fentanyl Screen Ur Barbiturates Screen Ur Phencyclidine Scrn Ur Amphetamines Screen U Benzodiazepines Scrn Urine Cocaine Screen U Marijuana (THC) Screen COVID-19 (MAR YKATE) COVID-19 [employer] Com Blood Type Antibody Screen 10/10/22 10/11/22 10/11/22 21:05 02:57 06:49 WBC 6.9 RBC 2.54 L Hgb 7.1 L Hct 21.4 L MCV 84.3 MCH 28.0 MCHC 33.2 RDW 15.2 Plt Count 234 MPV 9.4 Absolute Nucleated RBC 0.000 Nucleated RBC % (auto) 0.0 Sodium 135 Potassium 4.8 Chloride 101 Carbon Dioxide 23 Anion Gap 16 BUN 34 H Creatinine 3.47 H Estim Creat Clear Calc 32.9 Estimated GFR 20 POC Glucose Random Glucose Fasting Glucose 108 H Calcium 7.8 L Urine Color Urine Appearance Urine pH Ur Specific [place] Urine Protein Urine Glucose (UA) Urine Ketones Urine Blood Urine Nitrite Ur Leukocyte Esterase Urine RBC Urine WBC Ur Squamous Epith Cells Urine Bacteria Hyaline Casts Urine Opiates Screen Not Detected Urine Fentanyl Screen POSITIVE H Ur Barbiturates Screen Not Detected Ur Phencyclidine Scrn Not Detected Ur Amphetamines Screen Not Detected U Benzodiazepines Scrn Not Detected Urine Cocaine Screen Not Detected U Marijuana (THC) Screen Not Detected COVID-19 (MARY KATE) COVID-19 [employer] Com Blood Type Antibody Screen 10/11/22 10/11/22 07:23 08:31 WBC RBC Hgb Hct MCV MCH MCHC RDW Plt Count MPV Absolute Nucleated RBC Nucleated RBC % (auto) Sodium Potassium Chloride Carbon Dioxide Anion Gap BUN Creatinine Estim Creat Clear Calc Estimated GFR POC Glucose 119 H Random Glucose Fasting Glucose Calcium Urine Color Urine Appearance Urine pH Ur Specific [place] Urine Protein Urine Glucose (UA) Urine Ketones Urine Blood Urine Nitrite Ur Leukocyte Esterase Urine RBC Urine WBC Ur Squamous Epith Cells Urine Bacteria Hyaline Casts Urine Opiates Screen Urine Fentanyl Screen Ur Barbiturates Screen Ur Phencyclidine Scrn Ur Amphetamines Screen U Benzodiazepines Scrn Urine Cocaine Screen U Marijuana (THC) Screen COVID-19 (MARY KATE) COVID-19 [employer] Com Blood Type O Positive Antibody Screen NEGATIVE Airway Mallampati Class: II TM Dist: >3cm Neck ROM: Full Loose/Missing/Broken Teeth: Yes (Edentulous) Heart: RRR Lungs: CTAB Assessment and Plan Assessment Anesthesia Assessment: Anesthesia Plan Discussed and Chart Reviewed Final Anesthetic Review Family History of Problems with Anesthesia: No History of Problems with Anesthesia: No NPO: Yes ASA Class: III and Emergency Final Preanesthetic Review: No Changes in Pt Med Stat, Meds/Allgs Chart Reviewed, Consent Obtained/Reviewed and Anes Risks/Benef Reviewed Patient Risk: Intermediate Procedure Risk: Intermediate Assessment/Block/Sedation in SS: Assess/Block/Sedation-SS Anesthetic Plan Anesthetic Plan: GA (Hct 21. Patient very pale. Will [id number] PRBC) and Regional Block (Femoral/ saphenous/sciatic nerve block) Disposition: Standard PACU and Inp. Admit - Standard Bed
[2022-10-11 10:19] LABS: Glucose, Whole Blood 120 mg/dL (60-115)
--- NOTE | 2022-10-11 10:45 | HO.PM.IMPN ---
Subjective Subjective Date of Service: 10/11/22 Interval History: no complaints Physical Exam Vital Signs: Vital Signs: Last Vital Signs Temp 97.9 F 10/11/22 10:05 Pulse 75 10/11/22 10:05 Resp 16 10/11/22 10:05 BP 149/87 H 10/11/22 10:05 Pulse Ox 96 10/11/22 10:05 O2 Del Method Room Air 10/11/22 10:05 BMI result Body Mass Index 27.8 Appearance: Alert. Oriented X3. Moderate distress. Eyes: Pupils equal, round and reactive to light. Neck: Normal inspection. Neck supple. CVS: Normal heart rate and rhythm. Pulses normal. Respiratory: No respiratory distress. Breath sounds normal. Skin: Skin warm and dry. Normal skin color. Normal skin turgor. Extremities: Known osteomyelitis to the right lower extremity Neuro: No motor deficit. No sensory deficit. Cranial nerves 2-12 intact Objective Data Active Medications Acetaminophen (Acetaminophen Supp 650 Mg Supp.Rect) 650 mg [place] Q6H PRN PRN Reason: Pain, Mild (Pain Scale 1-3) Docusate Sodium (Docusate Sodium 100 Mg Capsule) 100 mg PO BID [facility] Last Admin: 10/11/22 08:25 Dose: Not Given Documented By: TAMAR Non-Admin Reason: NPO Glucose (Glucose Gel 15 Gm Gel..Gram.) 15 gm PO Q15M PRN; Protocol PRN Reason: per Hypoglycemia Standing Ord. Heparin Sodium (Porcine) (Heparin Sodium,Porcine 5,000 Unit/Ml Vial) 5,000 unit SUBCUT Q12H [facility] Last Admin: 10/09/22 21:54 Dose: 5,000 unit Documented By: NORA Daptomycin 700 mg/ Sodium (Chloride) 64 mls @ 99.182 mls/hr IV Q24H [facility] Last Admin: 10/11/22 09:37 Dose: 99.18 mls/hr Documented By: TAMAR Dextrose (D10) 250 mls @ 750 mls/hr IV Q15M PRN; Protocol PRN Reason: per Hypoglycemia Standing Ord. Piperacillin Sod/Tazobactam (Sod 2.25 gm/ Sodium Chloride) 50 mls @ 100 mls/hr IV Q6H [facility] Last Infusion: 10/11/22 09:02 Dose: 0 mls/hr Documented By: TAMAR Insulin Glargine (Insulin Glargine,Hum.Rec.Anlog 100 Unit/Ml 10 Ml Vial) 30 unit SUBCUT BID [facility] Last Admin: 10/11/22 08:25 Dose: Not Given Documented By: TAMAR Non-Admin Reason: NPO Insulin Human Lispro (Insulin Lispro 100 Unit/Ml 3 Ml Vial) 0 unit SUBCUT QIDACHS [facility]; Protocol Last Admin: 10/11/22 08:25 Dose: Not Given Documented By: TAMAR Non-Admin Reason: NPO Methadone HCl (Methadone Hcl 20 Mg/2 Ml Oral.Conc) 40 mg PO DAILY [facility] Last Admin: 10/11/22 08:18 Dose: 40 mg Documented By: TAMAR Ondansetron HCl (Ondansetron Hcl 4 Mg/2 Ml Vial) 4 mg IVPUSH Q8H PRN PRN Reason: Nausea and Vomiting Pharmacy Consult (Consult Rx Perform Med Rec) 1 each MISCELLANE ONCE PRN PRN Reason: Consult order Senna (Sennosides 8.6 Mg Tablet) 17.2 mg PO BEDTIME PRN PRN Reason: Constipation Sodium Chloride (0.9 % Sodium Chloride Flush 3 Ml Syringe) 3 ml IVFLUSH QSHIFT [facility] Last Admin: 10/11/22 08:19 Dose: 3 ml Documented By: TAMAR Labs 10/11/22 02:57 10/11/22 06:49 Labs: Laboratory Results - last 24 hr 10/10/22 10/10/22 10/10/22 11:16 16:43 20:37 MCV MCH MCHC RDW Plt Count MPV Absolute Nucleated RBC Nucleated RBC % (auto) Anion Gap Estim Creat Clear Calc Estimated GFR POC Glucose 88 90 116 H Fasting Glucose Calcium Urine Color Urine Appearance Urine pH Ur Specific [place] Urine Protein Urine Glucose (UA) Urine Ketones Urine Blood Urine Nitrite Ur Leukocyte Esterase Urine RBC Urine WBC Ur Squamous Epith Cells Urine Bacteria Hyaline Casts Urine Opiates Screen Urine Fentanyl Screen Ur Barbiturates Screen Ur Phencyclidine Scrn Ur Amphetamines Screen U Benzodiazepines Scrn Urine Cocaine Screen U Marijuana (THC) Screen Blood Type Antibody Screen Crossmatch 10/10/22 10/10/22 10/11/22 21:05 21:05 02:57 MCV 84.3 MCH 28.0 MCHC 33.2 RDW 15.2 Plt Count 234 MPV 9.4 Absolute Nucleated RBC 0.000 Nucleated RBC % (auto) 0.0 Anion Gap Estim Creat Clear Calc Estimated GFR POC Glucose Fasting Glucose Calcium Urine Color Yellow Urine Appearance Cloudy Urine pH 5.0 Ur Specific [place] 1.015 Urine Protein 100 (2+) H Urine Glucose (UA) Negative Urine Ketones Negative Urine Blood Negative Urine Nitrite Negative Ur Leukocyte Esterase Trace H Urine RBC 0-2 Urine WBC 0-5 Ur Squamous Epith Cells 3-5 Urine Bacteria None Seen Hyaline Casts 0-2 Urine Opiates Screen Not Detected Urine Fentanyl Screen POSITIVE H Ur Barbiturates Screen Not Detected Ur Phencyclidine Scrn Not Detected Ur Amphetamines Screen Not Detected U Benzodiazepines Scrn Not Detected Urine Cocaine Screen Not Detected U Marijuana (THC) Screen Not Detected Blood Type Antibody Screen Crossmatch 10/11/22 10/11/22 10/11/22 06:49 07:23 08:31 MCV MCH MCHC RDW Plt Count MPV Absolute Nucleated RBC Nucleated RBC % (auto) Anion Gap 16 Estim Creat Clear Calc 32.9 Estimated GFR 20 POC Glucose 119 H Fasting Glucose 108 H Calcium 7.8 L Urine Color Urine Appearance Urine pH Ur Specific [place] Urine Protein Urine Glucose (UA) Urine Ketones Urine Blood Urine Nitrite Ur Leukocyte Esterase Urine RBC Urine WBC Ur Squamous Epith Cells Urine Bacteria Hyaline Casts Urine Opiates Screen Urine Fentanyl Screen Ur Barbiturates Screen Ur Phencyclidine Scrn Ur Amphetamines Screen U Benzodiazepines Scrn Urine Cocaine Screen U Marijuana (THC) Screen Blood Type O Positive Antibody Screen NEGATIVE Crossmatch See Detail 10/11/22 10:15 MCV MCH MCHC RDW Plt Count MPV Absolute Nucleated RBC Nucleated RBC % (auto) Anion Gap Estim Creat Clear Calc Estimated GFR POC Glucose 120 H Fasting Glucose Calcium Urine Color Urine Appearance Urine pH Ur Specific [place] Urine Protein Urine Glucose (UA) Urine Ketones Urine Blood Urine Nitrite Ur Leukocyte Esterase Urine RBC Urine WBC Ur Squamous Epith Cells Urine Bacteria Hyaline Casts Urine Opiates Screen Urine Fentanyl Screen Ur Barbiturates Screen Ur Phencyclidine Scrn Ur Amphetamines Screen U Benzodiazepines Scrn Urine Cocaine Screen U Marijuana (THC) Screen Blood Type Antibody Screen Crossmatch Microbiology Microbiology Results: Microbiology 10/10/22 02:09 Blood Culture - Preliminary Blood - Venous Gram positive cocci 10/10/22 02:09 Blood Culture - Preliminary Blood - Venous No growth after 24 hours. Assessment and Plan (1) Cellulitis of foot, right: Status: Acute Plan 37 years old male with PMh of IDDM, opiate dependence, Hx OM post Lt BKA, Rt transmetatarsal amp who presented to the hospital with RLE pain and swelling. right TMA site cellulitis and osteomyelitis due to DM complicated by MRSA bacteremia CT with air vascular appreciated - s/p bedside I and D 10/07/22, plan for right bka today, 10/11/22 no obvious vegetation on TTE ID appreciated, will continue zosyn, changed vanc to dapto PVD seen on duplex follow up repeat cultures Hyperglycemia in IDDM Increased Lantus to 30 bid SSI diabetic diet Hyperkalemia Lokelma given, resolved SMITHA stabilizing changed to dapto nephro following monitor closely opiate dependence methadone DVT PPx Lovenox full code reason for continued hospitalization:bacteremia Time Spent With Patient Time: Total time managing care of this patient today ____ minutes. Quality Stroke Does the patient have a stroke diagnosis?: No VTE Prior VTE?: No VTE Risk Level:: Medical - moderate - high VTE Device Contraindication: N/A - Device Ordered VTE Drug Contraindication: N/A - Med Ordered
--- NOTE | 2022-10-11 11:03 | MHC.SHP ---
Pre-Procedural Eval Section A Date of Service: 10/11/22 The patient is an INPATIENT: Yes Changes since office visit: Yes Patient answered all questions The History & Physical has been completed within 30 days and I have reviewed it.: Yes Section B Chief Complaint: Osteomyelitis Allergies: Allergies Allergy/AdvReac Type Severity Reaction Status Date / Time No Known Allergies Allergy Verified 10/05/22 08:32 [No Known Allergies*] Plan I have reviewed the history and physical and performed a pertinent physical examination on my patient. No changes have occurred unless specified. Time Spent With Patient Time: Total time managing care of this patient today ____ minutes.
--- NOTE | 2022-10-11 11:04 | PC.NURSE ---
EMERGENT PATIENT. BLOOD ORDERED AND PATIENT OFF TO OR. HUNG BLOOD WITH NURSE ANAESTHETIST WITH PAPER FORM AND PATIENT OFF UNIT TO OR. BLOOD TO BE FINISHED IN OR/PACU. LUNGS CLEAR PRIOR TO INFUSION AND NO FEVER. PATIENT TO HAVE REPEAT VITALS AFTER FIFTEEN MINUTES IN OR.
--- NOTE | 2022-10-11 13:06 | MHC.CM.PN ---
AVILA UPDATED. PLAN IS AMP TODAY WILL NEED PICC AND LT IV ABX. CASE MANAGEMENT TO ARRANGE FOR GUEST DOSING FROM [facility] [phone] TO [facility] PRIOR TO DC.
--- NOTE | 2022-10-11 13:31 | W.PM.OPN ---
Operative Note Operative Note Date of Service: 10/11/22 Narrative: Operative note by [facility] Preoperative diagnosis:1. Right foot diabetic ulcer 2. Osteomyelitis Postoperative diagnosis: Same Procedure:1. Right leg below-knee amputation 2. Myodesis Surgeon:Earle Mendoza M.D. Rehab Director Occupational Therapist: Jordan Anesthesia: General Specimens: 1 Drains: None Estimated blood loss: 500 mL Indications: Complex 37-year-old gentleman presents for right below-knee amputation. He had a severe infection of that foot which was opened at bedside. He had continues purulence drainage from there. There was actually CT concern necrotizing fasciitis. He had left the hospital AMA. Upon return he presents for amputation. Due to the nature of his leg and his overall condition this was deemed an emergent surgery. He now presents for right below-knee amputation. The patient has signed the informed consent after reviewing risks, complications, benefits, and alternatives previously discussed with the patient. The patient was given the opportunity to ask any additional questions or voice any concerns. All questions were answered to the patient's satisfaction. Procedure in detail: Patient was brought to the operating room prior to which a time-out was called for patient identification site verification. Right leg was prepped and draped in standard surgical fashion. Approximately 10 cm below the tibial tuberosity a curvilinear incision was made along that pretibial surface. A posterior flap was then created. Once across we used electrocautery to get across all the muscle beds. Due to the amount of bleeding we had to use a tourniquet which was inflated to 250 mmHg for a total duration of 14 minutes. Once we were cross the muscle beds. We encircled the tibia. We used a power saw on created a reverse hockey stick cut across the tibia. We then transected across the muscle beds and we E in a similar fashion sought across the fibula with a power saw. We used electrocautery to create a posterior flap. Once this was all the way across the leg was passed off as specimen. We were able to easily identify the anterior tibial and posterior tibial arteries. These were tied off with 2-0 silk ties. We then released our tourniquet an all bleeders were treated with electrocautery an adequate hemostasis was achieved. Once this was all done we ensured that the arm bony edges were filed down to a smooth edge. We irrigated this area out thoroughly. Once this was all accomplished we then reapproximated the posterior flap to the anterior fascia using 2 0 poly Sorb. This was done in an interrupted fashion all the way across the stump. Once this was all accomplished the dog-ears were trimmed down and made to an appropriate size. Once we completed all this we then reapproximated the superficial layer with a 3-0 poly Sorb and finally skin was closed with an interrupted mattress 2-0 nylon suture and skin clips. Xeroform and a sterile dressing were applied. At the end the case sponge instrument counts were correct. Patient tolerated the procedure well returned to recovery with stable vitals. This note is constructed using voice recognition software. While every effort has been made to ensure accuracy, electric meter reader errors may have been included. Thank you for allowing me to participate in the care of your patient. Yours sincerely, Earle Mendoza MD, FACS, R.P.V.I.
--- NOTE | 2022-10-11 15:23 | P.PNID_ITS ---
Subjective Subjective Date of Service: 10/11/22 Critical Care Time (minutes): 15 Comment: He has no complaints He has right BKA Objective Data Labs 10/11/22 02:57 10/11/22 06:49 Labs: Laboratory Results - last 24 hr 10/10/22 10/10/22 10/10/22 16:43 20:37 21:05 WBC RBC Hgb Hct MCV MCH MCHC RDW Plt Count MPV Absolute Nucleated RBC Nucleated RBC % (auto) Sodium Potassium Chloride Carbon Dioxide Anion Gap BUN Creatinine Estim Creat Clear Calc Estimated GFR POC Glucose 90 116 H Fasting Glucose Calcium Urine Color Yellow Urine Appearance Cloudy Urine pH 5.0 Ur Specific [place] 1.015 Urine Protein 100 (2+) H Urine Glucose (UA) Negative Urine Ketones Negative Urine Blood Negative Urine Nitrite Negative Ur Leukocyte Esterase Trace H Urine RBC 0-2 Urine WBC 0-5 Ur Squamous Epith Cells 3-5 Urine Bacteria None Seen Hyaline Casts 0-2 Urine Opiates Screen Urine Fentanyl Screen Ur Barbiturates Screen Ur Phencyclidine Scrn Ur Amphetamines Screen U Benzodiazepines Scrn Urine Cocaine Screen U Marijuana (THC) Screen Blood Type Antibody Screen Crossmatch 10/10/22 10/11/22 10/11/22 21:05 02:57 06:49 WBC 6.9 RBC 2.54 L Hgb 7.1 L Hct 21.4 L MCV 84.3 MCH 28.0 MCHC 33.2 RDW 15.2 Plt Count 234 MPV 9.4 Absolute Nucleated RBC 0.000 Nucleated RBC % (auto) 0.0 Sodium 135 Potassium 4.8 Chloride 101 Carbon Dioxide 23 Anion Gap 16 BUN 34 H Creatinine 3.47 H Estim Creat Clear Calc 32.9 Estimated GFR 20 POC Glucose Fasting Glucose 108 H Calcium 7.8 L Urine Color Urine Appearance Urine pH Ur Specific [place] Urine Protein Urine Glucose (UA) Urine Ketones Urine Blood Urine Nitrite Ur Leukocyte Esterase Urine RBC Urine WBC Ur Squamous Epith Cells Urine Bacteria Hyaline Casts Urine Opiates Screen Not Detected Urine Fentanyl Screen POSITIVE H Ur Barbiturates Screen Not Detected Ur Phencyclidine Scrn Not Detected Ur Amphetamines Screen Not Detected U Benzodiazepines Scrn Not Detected Urine Cocaine Screen Not Detected U Marijuana (THC) Screen Not Detected Blood Type Antibody Screen Crossmatch 10/11/22 10/11/22 10/11/22 07:23 08:31 10:15 WBC RBC Hgb Hct MCV MCH MCHC RDW Plt Count MPV Absolute Nucleated RBC Nucleated RBC % (auto) Sodium Potassium Chloride Carbon Dioxide Anion Gap BUN Creatinine Estim Creat Clear Calc Estimated GFR POC Glucose 119 H 120 H Fasting Glucose Calcium Urine Color Urine Appearance Urine pH Ur Specific [place] Urine Protein Urine Glucose (UA) Urine Ketones Urine Blood Urine Nitrite Ur Leukocyte Esterase Urine RBC Urine WBC Ur Squamous Epith Cells Urine Bacteria Hyaline Casts Urine Opiates Screen Urine Fentanyl Screen Ur Barbiturates Screen Ur Phencyclidine Scrn Ur Amphetamines Screen U Benzodiazepines Scrn Urine Cocaine Screen U Marijuana (THC) Screen Blood Type O Positive Antibody Screen NEGATIVE Crossmatch See Detail Microbiology Microbiology Results: Microbiology 10/10/22 02:09 Blood - Venous Blood Culture - Preliminary Gram positive cocci 10/10/22 02:09 Blood - Venous Blood Culture - Preliminary No growth after 24 hours. Physical Exam Vital Signs: Vital Signs: Last Vital Signs Temp 97.1 F 10/11/22 13:36 Pulse 72 10/11/22 13:36 Resp 18 10/11/22 13:36 BP 152/79 H 10/11/22 13:36 Pulse Ox 97 10/11/22 13:36 O2 Del Method Room Air 10/11/22 13:36 O2 Flow Rate 4 10/11/22 13:07 BMI result Body Mass Index 27.8 Const: General: cooperative HEENT: Head: Yes normal to inspection Resp: Effort & Inspection: normal respiratory effort Cardio: Rate: regular rate Rhythm: regular rhythm GI: Palpation (GI): Soft to palpation and nontender Extrem: Other: right BKA ,rest of leg is clear Assessment and Plan Assessment and plan (1) MRSA bacteremia: Problem details: He has still positive blood cultures but no signs of metastatic infection and no complaints Status: Acute Assessment and Plan: Continue Daptomycin Weekly CK and creatinine. 4 weeks Daptomycin from first negative blood culture. Should see in followup If fails to clear then consider CHAYA and possible tagged WBC scan. Time Spent With Patient Time: Total time managing care of this patient today ____ minutes.
[2022-10-11 16:36] LABS: Glucose, Whole Blood 236 mg/dL (60-115)
[2022-10-11] MEDS: Insulin Lispro 100 UNIT/ML 3 ML VIAL SUBCUT ×2 (16:57→21:15)
[2022-10-11 20:21] LABS: Glucose, Whole Blood 269 mg/dL (60-115)
[2022-10-11] MEDS: Heparin Sodium,Porcine 5,000 UNIT/ML VIAL 5000 UNIT SUBCUT (21:14)
[2022-10-11] MEDS: Docusate Sodium 100 MG CAPSULE PO (21:14)
[2022-10-11] MEDS: Insulin Glargine,Hum.rec.anlog 100 UNIT/ML 10 ML VIAL 30 UNIT SUBCUT (21:15)
[2022-10-11] MEDS: HYDROmorphone HCl 1 MG/ML SYRINGE IVPUSH (21:16)
[2022-10-12] MEDS: Piperacillin Sodium/Tazobactam 2.25 GM in 0.9 % Sodium Chloride 50 ML IV (01:49)
[2022-10-12 03:53] VITALS: BP 133/69; PULSE 92; RESP 18; TEMP 36.6; O2SAT 95
[2022-10-12] MEDS: Morphine Sulfate 4 MG/ML CARTRIDGE IVPUSH (05:16)
[2022-10-12 06:14] LABS: MANUAL DIFF FLAG NO
[2022-10-12 06:16] LABS: Basophils Percent Auto 0.2 % (0-2); Eosinophils Absolute Auto 0.1 X10*3/uL (0.0-0.4); Eosinophils Percent Auto 1.3 % (0-4); Hematocrit 22.9 % (42.0-52.0); Hemoglobin 7.6 g/dl (14.0-18.0); Imm Gran Pct Auto 1.1 % (0.0-0.4); Lymphocytes Percent Auto 10.4 % (20-40); Mean Corpuscular HGB Conc 33.2 g/dl (31.0-36.0); Mean Corpuscular Hemoglobin 27.8 pg (27.0-33.0); Mean Corpuscular Volume 83.9 fL (80.0-98.0); Mean Platelet Volume 8.9 fL (9.4-12.4); Monocytes Absolute Auto 0.6 X10*3/uL (0.1-1.2); Monocytes Percent Auto 6.6 % (2-11); Neutrophils Absolute Auto 7.6 x10*3/uL (2.0-8.3); Neutrophils Percent Auto 80.4 % (45-73); Platelet Count 326 X10*3/uL (160-400); Red Blood Count 2.73 X10*6/uL (4.60-5.80); Red Cell Distribution Width 15.4 % (11.0-16.0); White Blood Count 9.5 X10*3/uL (4.8-10.8)
[2022-10-12 06:41] LABS: Anion Gap 14 (12-20); Blood Urea Nitrogen 32 mg/dL (9-16); Calcium 7.3 mg/dL (8.4-10.2); Carbon Dioxide 24 mmol/L (22-29); Chloride 100 mmol/L (96-108); Creatinine Clr Calc Pharmacy 30.8; Estimated Glomerular Filt Rate 18; Glucose Fasting 207 mg/dL (60-99); Potassium 4.8 mmol/L (3.3-5.1); Sodium 133 mmol/L (135-145)
[2022-10-12 07:29] VITALS: BP 165/81; PULSE 93; RESP 18; TEMP 36.4; O2SAT 93
[2022-10-12 07:36] LABS: Glucose, Whole Blood 195 mg/dL (60-115)
--- NOTE | 2022-10-12 07:38 | HO.VASCPN ---
Subjective Subjective Date of Service: 10/12/22 Patient reports: no new complaints Interval history: Patient seen and examined. No significant events overnight. Postop day 1 status post right BKA. Appears to have pain well tolerated. Patient resting comfortably in bed this morning. Physical Exam Vital Signs: Vital Signs: Last Vital Signs Temp 97.5 F 10/12/22 07:29 Pulse 93 10/12/22 07:29 Resp 18 10/12/22 07:29 BP 165/81 H 10/12/22 07:29 Pulse Ox 93 10/12/22 07:29 O2 Del Method Room Air 10/12/22 07:29 O2 Flow Rate 4 10/11/22 13:07 BMI result Body Mass Index 27.8 Const: General: cooperative, healthy appearing and no acute distress Orientation/consciousness: oriented to person, oriented to place and oriented to time HEENT: Head: Yes normal to inspection Neck: Carotids: no bruits Chest: Chest palpation & inspection: normal inspection of the chest Resp: Effort & Inspection: normal respiratory effort and able to speak in complete sentences Auscultation: clear to auscultation bilaterally Cardio: Rate: regular rate Heart sounds: S1 normal heart sound present and S2 normal heart sound present GI: Inspection: Yes normal to inspection Skin: General skin exam: no rashes or lesions noted Wounds: amputation site (Stump dressing clean dry intact) Neuro: General: oriented to person, oriented to place, oriented to time and CN's II-XI intact bilaterally Extrem: General: Yes normal to inspection, Yes full ROM and Yes no clubbing, cyanosis or edema Psych: Appearance: grossly normal and well kempt Speech and movement: Normal speech and movement present Affect: normal affect Progress Note: A&P Assessment and plan (1) Status post below knee amputation of right lower extremity: Status: Acute Assessment and Plan: In short patient is doing well with right below-knee amputation. Will plan for dressing change for tomorrow. H&H was stable this morning. If okay should be able to discharge to rehab within the next day or 2. Thank you for allowing us to assist in his care. If there are any questions or concerns please do not hesitate to contact us Time Spent With Patient Time: Total time managing care of this patient today ____ minutes. Procedures Date of Service Date of Service: 10/12/22 Quality Stroke Does the patient have a stroke diagnosis?: No VTE Prior VTE?: No VTE Risk Level:: Medical - moderate - high VTE Device Contraindication: N/A - Device Ordered VTE Drug Contraindication: N/A - Med Ordered
[2022-10-12] MEDS: Insulin Lispro 100 UNIT/ML 3 ML VIAL SUBCUT ×4 (07:54→20:42)
[2022-10-12] MEDS: Heparin Sodium,Porcine 5,000 UNIT/ML VIAL 5000 UNIT SUBCUT ×2 (07:54→19:47)
[2022-10-12] MEDS: Insulin Glargine,Hum.rec.anlog 100 UNIT/ML 10 ML VIAL 30 UNIT SUBCUT ×2 (07:54→20:42)
[2022-10-12] MEDS: methADONE HCl 20 MG/2 ML ORAL.CONC 40 MG PO (07:54)
[2022-10-12] MEDS: 0.9 % Sodium Chloride Flush 3 ML SYRINGE IVFLUSH ×3 (07:55→19:48)
[2022-10-12] MEDS: Docusate Sodium 100 MG CAPSULE PO ×2 (07:55→19:47)
--- NOTE | 2022-10-12 09:10 | P.PNIM_ITS ---
Subjective Subjective Date of Service: 10/12/22 Interval History: with pain Physical Exam Vital Signs: Vital Signs: Last Vital Signs Temp 97.5 F 10/12/22 07:29 Pulse 93 10/12/22 07:29 Resp 18 10/12/22 07:29 BP 165/81 H 10/12/22 07:29 Pulse Ox 93 10/12/22 07:29 O2 Del Method Room Air 10/12/22 07:29 O2 Flow Rate 4 10/11/22 13:07 BMI result Body Mass Index 27.8 Const: General: cooperative, healthy appearing and no acute distress Orientation/consciousness: oriented to person, oriented to place and oriented to time HEENT: Head: Yes normal to inspection Neck: Carotids: no bruits Chest: Chest palpation & inspection: normal inspection of the chest Resp: Effort & Inspection: normal respiratory effort and able to speak in complete sentences Auscultation: clear to auscultation bilaterally Cardio: Rate: regular rate Heart sounds: S1 normal heart sound present and S2 normal heart sound present GI: Inspection: Yes normal to inspection Skin: General skin exam: no rashes or lesions noted Wounds: amputation site (Stump dressing clean dry intact) Neuro: General: oriented to person, oriented to place, oriented to time and CN's II-XI intact bilaterally Extrem: General: Yes normal to inspection, Yes full ROM and Yes no clubbing, cyanosis or edema Psych: Appearance: grossly normal and well kempt Speech and movement: Norm al speech and movement present Affect: normal affect Objective Data Active Medications Acetaminophen (Acetaminophen Supp 650 Mg Supp.Rect) 650 mg OH Q6H PRN PRN Reason: Pain, Mild (Pain Scale 1-3) Docusate Sodium (Docusate Sodium 100 Mg Capsule) 100 mg PO BID [facility] Last Admin: 10/12/22 07:55 Dose: 100 mg Documented By: YOSEPH Glucose (Glucose Gel 15 Gm Gel..Gram.) 15 gm PO Q15M PRN; Protocol PRN Reason: per Hypoglycemia Standing Ord. Heparin Sodium (Porcine) (Heparin Sodium,Porcine 5,000 Unit/Ml Vial) 5,000 unit SUBCUT Q12H [facility] Last Admin: 10/12/22 07:54 Dose: 5,000 unit Documented By: YOSEPH Hydromorphone HCl (Hydromorphone Hcl 1 Mg/Ml Syringe) 1 mg IVPUSH Q4H PRN; Protocol PRN Reason: moderate pain Daptomycin 700 mg/ Sodium (Chloride) 64 mls @ 99.182 mls/hr IV Q24H [facility] Last Infusion: 10/11/22 10:55 Dose: 0 mls/hr Documented By: TAMAR Dextrose (D10) 250 mls @ 750 mls/hr IV Q15M PRN; Protocol PRN Reason: per Hypoglycemia Standing Ord. Insulin Glargine (Insulin Glargine,Hum.Rec.Anlog 100 Unit/Ml 10 Ml Vial) 30 unit SUBCUT BID [facility] Last Admin: 10/12/22 07:54 Dose: 30 unit Documented By: YOSEPH Insulin Human Lispro (Insulin Lispro 100 Unit/Ml 3 Ml Vial) 0 unit SUBCUT QIDACHS [facility]; Protocol Last Admin: 10/12/22 07:54 Dose: 2 unit Documented By: YOSEPH Methadone HCl (Methadone Hcl 20 Mg/2 Ml Oral.Conc) 40 mg PO DAILY [facility] Last Admin: 10/12/22 07:54 Dose: 40 mg Documented By: YOSEPH Ondansetron HCl (Ondansetron Hcl 4 Mg/2 Ml Vial) 4 mg IVPUSH Q8H PRN PRN Reason: Nausea and Vomiting Pharmacy Consult (Consult Rx Perform Med Rec) 1 each MISCELLANE ONCE PRN PRN Reason: Consult order Senna (Sennosides 8.6 Mg Tablet) 17.2 mg PO BEDTIME PRN PRN Reason: Constipation Sodium Chloride (0.9 % Sodium Chloride Flush 3 Ml Syringe) 3 ml IVFLUSH QSHIFT [facility] Last Admin: 10/12/22 07:55 Dose: 3 ml Documented By: YOSEPH Labs 10/12/22 06:03 10/12/22 06:03 Labs: Laboratory Results - last 24 hr 10/11/22 10/11/22 10/11/22 08:31 10:15 16:22 MCV MCH MCHC RDW Plt Count MPV Immature Gran % (Auto) Neut % (Auto) Lymph % (Auto) [place] % (Auto) Eos % (Auto) Baso % (Auto) Lymph # (Auto) [place] # (Auto) Eos # (Auto) Baso # (Auto) Abs Immat Gran (auto) Absolute Neuts (auto) Absolute Nucleated RBC Nucleated RBC % (auto) Anion Gap Estim Creat Clear Calc Estimated GFR POC Glucose 120 H 236 H Fasting Glucose Calcium Blood Type O Positive Antibody Screen NEGATIVE Crossmatch See Detail 10/11/22 10/12/22 10/12/22 20:11 06:03 06:03 MCV 83.9 MCH 27.8 MCHC 33.2 RDW 15.4 Plt Count 326 D MPV 8.9 L Immature Gran % (Auto) 1.1 H Neut % (Auto) 80.4 H Lymph % (Auto) 10.4 L [place] % (Auto) 6.6 Eos % (Auto) 1.3 Baso % (Auto) 0.2 Lymph # (Auto) 1.0 L [place] # (Auto) 0.6 Eos # (Auto) 0.1 Baso # (Auto) 0.0 Abs Immat Gran (auto) 0.10 H Absolute Neuts (auto) 7.6 Absolute Nucleated RBC 0.000 Nucleated RBC % (auto) 0.0 Anion Gap 14 Estim Creat Clear Calc 30.8 Estimated GFR 18 POC Glucose 269 H Fasting Glucose 207 H Calcium 7.3 L D Blood Type Antibody Screen Crossmatch 10/12/22 07:31 MCV MCH MCHC RDW Plt Count MPV Immature Gran % (Auto) Neut % (Auto) Lymph % (Auto) [place] % (Auto) Eos % (Auto) Baso % (Auto) Lymph # (Auto) [place] # (Auto) Eos # (Auto) Baso # (Auto) Abs Immat Gran (auto) Absolute Neuts (auto) Absolute Nucleated RBC Nucleated RBC % (auto) Anion Gap Estim Creat Clear Calc Estimated GFR POC Glucose 195 H Fasting Glucose Calcium Blood Type Antibody Screen Crossmatch Microbiology Microbiology Results: Microbiology 10/10/22 02:09 Blood Culture - Final Blood - Venous Methicillin Res Staph Aureus 10/11/22 02:57 Blood Culture - Preliminary Blood - Venous No growth after 24 hours. 10/11/22 02:57 Blood Culture - Preliminary Blood - Venous No growth after 24 hours. 10/10/22 02:09 Blood Culture - Preliminary Blood - Venous No growth after 48 hours. Assessment and Plan (1) Cellulitis of foot, right: Status: Acute Plan 37 years old male with PMh of IDDM, opiate dependence, Hx OM post Lt BKA, Rt transmetatarsal amp who presented to the hospital with RLE pain and swelling. right TMA site cellulitis and osteomyelitis due to DM complicated by MRSA bacteremia s/p right bka 10/11/22 no obvious vegetation on TTE changed vanc to dapto due to smitha will dc zosyn now that he is postop follow up repeat cultures - negative so far from 10/11/22 will need mueller (due to smitha) and 4 weeks dapto on discharge - to be done at SNF, holding off on orders until bed available due to opiate dependence history if stays negative, end date would be 11/07/22 Hyperglycemia in IDDM Increased Lantus to 30 bid SSI diabetic diet Hyperkalemia Lokelma given, resolved SMITHA changed to dapto nephro following monitor closely opiate dependence methadone DVT PPx Lovenox full code reason for continued hospitalization:bacteremia Time Spent With Patient Time: Total time managing care of this patient today ____ minutes. Quality Stroke Does the patient have a stroke diagnosis?: No VTE Prior VTE?: No VTE Risk Level:: Medical - moderate - high VTE Device Contraindication: N/A - Device Ordered VTE Drug Contraindication: N/A - Med Ordered
[2022-10-12] MEDS: HYDROmorphone HCl 1 MG/ML SYRINGE IVPUSH ×3 (09:11→19:47)
[2022-10-12] MEDS: DAPTOmycin 700 MG in 0.9 % Sodium Chloride 50 ML 99.18 MG IV (10:35)
--- NOTE | 2022-10-12 11:16 | MHC.CM.PN ---
REQUEST FOR CONFIRMATION OF BED OFFER SENT TO [facility] CONFIRMATION NEEDED SO THAT PICC ORDER CAN BE PLACED
[2022-10-12 11:30] LABS: Glucose, Whole Blood 261 mg/dL (60-115)
--- NOTE | 2022-10-12 14:08 | HO.POSTANES ---
Post Anesthesia Evaluation Post Anesthesia Evaluation Vital Signs: Vital Signs Temp Pulse Resp BP Pulse Ox O2 Del Method 10/12/22 07:29 97.5 F 93 18 165/81 H 93 Room Air 10/12/22 03:53 98 F 92 18 133/69 95 Room Air Anesthesia: Nerve Block and General Mental Status: Awake Pain Control: Satisfactory Nausea/Vomiting: None Hydration: Adequate Anesthesia-Related Issues: No Anes. Related Issues
[2022-10-12 15:12] VITALS: BP 178/88; PULSE 97; RESP 18; TEMP 36.5; O2SAT 93
[2022-10-12 16:09] LABS: Glucose, Whole Blood 169 mg/dL (60-115)
[2022-10-12 16:32] LABS: Creatinine Urine 42.98 mg/dL; Total Protein Urine Random 18 mg/dL (<12)
[2022-10-12 19:14] VITALS: BP 170/88; PULSE 91; RESP 18; TEMP 36.3; O2SAT 96
[2022-10-12 20:31] LABS: Glucose, Whole Blood 163 mg/dL (60-115)
[2022-10-13] MEDS: HYDROmorphone HCl 1 MG/ML SYRINGE IVPUSH ×2 (02:47→09:39)
[2022-10-13 03:18] VITALS: BP 166/88; PULSE 88; RESP 18; TEMP 36.6; O2SAT 95
[2022-10-13 06:36] LABS: Hematocrit 22.4 % (42.0-52.0); Hemoglobin 7.4 g/dl (14.0-18.0); Mean Corpuscular Hemoglobin 27.6 pg (27.0-33.0); Mean Corpuscular Volume 83.6 fL (80.0-98.0); Platelet Count 412 X10*3/uL (160-400); Red Blood Count 2.68 X10*6/uL (4.60-5.80); Red Cell Distribution Width 14.6 % (11.0-16.0); White Blood Count 8.5 X10*3/uL (4.8-10.8)
[2022-10-13 07:02] LABS: Anion Gap 15 (12-20); Blood Urea Nitrogen 27 mg/dL (9-16); Calcium 8.1 mg/dL (8.4-10.2); Carbon Dioxide 25 mmol/L (22-29); Chloride 102 mmol/L (96-108); Creatinine Clr Calc Pharmacy 35.8; Estimated Glomerular Filt Rate 22; Glucose Fasting 113 mg/dL (60-99); Potassium 4.6 mmol/L (3.3-5.1); Sodium 137 mmol/L (135-145)
[2022-10-13 07:06] VITALS: BP 179/90; PULSE 91; RESP 18; TEMP 36.1; O2SAT 96
[2022-10-13 07:18] LABS: Glucose, Whole Blood 125 mg/dL (60-115)
[2022-10-13] MEDS: methADONE HCl 20 MG/2 ML ORAL.CONC 40 MG PO (07:37)
[2022-10-13] MEDS: Docusate Sodium 100 MG CAPSULE PO (07:37)
[2022-10-13] MEDS: Heparin Sodium,Porcine 5,000 UNIT/ML VIAL 5000 UNIT SUBCUT (07:38)
[2022-10-13] MEDS: Insulin Glargine,Hum.rec.anlog 100 UNIT/ML 10 ML VIAL 30 UNIT SUBCUT (07:39)
[2022-10-13 07:41] LABS: HIV AB/AG Nonreactive (Nonreactive); HIV Num 1 0.11 S/CO (0.00-0.99); ~HepC Num1 0.11 S/CO (0.00-0.79); ~Hepatitis C Antibody Nonreactive (Nonreactive)
[2022-10-13] MEDS: 0.9 % Sodium Chloride Flush 3 ML SYRINGE IVFLUSH (07:42)
[2022-10-13] MEDS: DAPTOmycin 700 MG in 0.9 % Sodium Chloride 50 ML 99.18 MG IV (09:11)
[2022-10-13 09:24] LABS: EOS Counted 0 CELLS; EOS QC POS YES; EOS Stain Quality OK YES; WBC, Counted 100 CELLS
--- NOTE | 2022-10-13 11:14 | HO.PM.IMPN ---
Subjective Subjective Date of Service: 10/13/22 Interval History: the patient was seen and evaluated this morning Laying in bed, feels comfortable surgical site clean Denies any fever, chills or shortness of breath No reported other overnight events. Systemic review: No fever, chills or weakness No chest pain, palpitation No shortness of breath or coughing No abdominal pain, nausea or vomiting No urinary symptoms No reported rash Physical Exam Vital Signs: Vital Signs: Last Vital Signs Temp 96.9 F 10/13/22 07:06 Pulse 91 10/13/22 07:06 Resp 18 10/13/22 07:06 BP 179/90 H 10/13/22 07:06 Pulse Ox 96 10/13/22 07:06 O2 Del Method Room Air 10/13/22 07:06 O2 Flow Rate 4 10/11/22 13:07 BMI result Body Mass Index 27.8 Const: Other: Constitutional : Awake, interactive, not in distress Neck : Normal inspection, Supple Cardiovascular : RRR, no JVP, no lower extremity edema Respiratory : good bilateral air entry, no crackles, wheezes or rhonchi Gastrointestinal: soft, lax, Normal bowel sounds, Non tender Skin : Warm, Dry, ?Left BKA, right transmetatarsal amp with dressing applied Neurological : Alert & oriented x3, No focal deficit Objective Data Active Medications Acetaminophen (Acetaminophen Supp 650 Mg Supp.Rect) 650 mg MT Q6H PRN PRN Reason: Pain, Mild (Pain Scale 1-3) Docusate Sodium (Docusate Sodium 100 Mg Capsule) 100 mg PO BID [facility] Last Admin: 10/13/22 07:37 Dose: 100 mg Documented By: YOSEPH Glucose (Glucose Gel 15 Gm Gel..Gram.) 15 gm PO Q15M PRN; Protocol PRN Reason: per Hypoglycemia Standing Ord. Heparin Sodium (Porcine) (Heparin Sodium,Porcine 5,000 Unit/Ml Vial) 5,000 unit SUBCUT Q12H [facility] Last Admin: 10/13/22 07:38 Dose: 5,000 unit Documented By: YOSEPH Hydromorphone HCl (Hydromorphone Hcl 1 Mg/Ml Syringe) 1 mg IVPUSH Q4H PRN; Protocol PRN Reason: moderate pain Last Admin: 10/13/22 09:39 Dose: 1 mg Documented By: YOSEPH Daptomycin 700 mg/ Sodium (Chloride) 64 mls @ 99.182 mls/hr IV Q24H [facility] Last Infusion: 10/13/22 09:50 Dose: 0 mls/hr Documented By: YOSEPH Dextrose (D10) 250 mls @ 750 mls/hr IV Q15M PRN; Protocol PRN Reason: per Hypoglycemia Standing Ord. Insulin Glargine (Insulin Glargine,Hum.Rec.Anlog 100 Unit/Ml 10 Ml Vial) 30 unit SUBCUT BID [facility] Last Admin: 10/13/22 07:39 Dose: 30 unit Documented By: YOSEPH Insulin Human Lispro (Insulin Lispro 100 Unit/Ml 3 Ml Vial) 0 unit SUBCUT QIDACHS [facility]; Protocol Last Admin: 10/13/22 07:28 Dose: Not Given Documented By: YOSEPH Non-Admin Reason: No Insulin Coverage Methadone HCl (Methadone Hcl 20 Mg/2 Ml Oral.Conc) 40 mg PO DAILY [facility] Last Admin: 10/13/22 07:37 Dose: 40 mg Documented By: YOSEPH Ondansetron HCl (Ondansetron Hcl 4 Mg/2 Ml Vial) 4 mg IVPUSH Q8H PRN PRN Reason: Nausea and Vomiting Pharmacy Consult (Consult Rx Perform Med Rec) 1 each MISCELLANE ONCE PRN PRN Reason: Consult order Senna (Sennosides 8.6 Mg Tablet) 17.2 mg PO BEDTIME PRN PRN Reason: Constipation Sodium Chloride (0.9 % Sodium Chloride Flush 3 Ml Syringe) 3 ml IVFLUSH QSHIFT [facility] Last Admin: 10/13/22 07:42 Dose: 3 ml Documented By: YOSEPH Labs 10/13/22 05:49 10/13/22 05:49 Labs: Laboratory Results - last 24 hr 10/11/22 10/12/22 10/12/22 19:07 11:18 15:30 MCV MCH MCHC RDW Plt Count MPV Absolute Nucleated RBC Nucleated RBC % (auto) Anion Gap Estim Creat Clear Calc Estimated GFR POC Glucose 261 H Fasting Glucose Calcium Urine Eosinophils % 0.0 U Random Total Protein Urine Creatinine Hepatitis C Ab (EIA) Nonreactive HIV 1&2 Ab/P24 Ag 4thGn Nonreactive 10/12/22 10/12/22 10/12/22 15:30 15:59 20:24 MCV MCH MCHC RDW Plt Count MPV Absolute Nucleated RBC Nucleated RBC % (auto) Anion Gap Estim Creat Clear Calc Estimated GFR POC Glucose 169 H 163 H Fasting Glucose Calcium Urine Eosinophils % U Random Total Protein 18 H Urine Creatinine 42.98 Hepatitis C Ab (EIA) HIV 1&2 Ab/P24 Ag 4thGn 10/13/22 10/13/22 10/13/22 05:49 05:49 07:09 MCV 83.6 MCH 27.6 MCHC 33.0 RDW 14.6 Plt Count 412 H D MPV 9.0 L Absolute Nucleated RBC 0.000 Nucleated RBC % (auto) 0.0 Anion Gap 15 Estim Creat Clear Calc 35.8 Estimated GFR 22 POC Glucose 125 H Fasting Glucose 113 H Calcium 8.1 L D Urine Eosinophils % U Random Total Protein Urine Creatinine Hepatitis C Ab (EIA) HIV 1&2 Ab/P24 Ag 4thGn Microbiology Microbiology Results: Microbiology 10/11/22 02:57 Blood Culture - Preliminary Blood - Venous No growth after 48 hours. 10/11/22 02:57 Blood Culture - Preliminary Blood - Venous No growth after 48 hours. 10/10/22 02:09 Blood Culture - Final Blood - Venous Methicillin Res Staph Aureus Assessment and Plan (1) Status post below knee amputation of right lower extremity: Status: Acute (2) MRSA bacteremia: Status: Acute Plan 37 years old male with PMh of IDDM, opiate dependence, Hx OM post Lt BKA, Rt transmetatarsal amp who presented to the hospital with RLE pain and swelling. right TMA site cellulitis and osteomyelitis due to DM complicated by MRSA bacteremia s/p right bka 10/11/22 no obvious vegetation on TTE changed vanc to dapto due to smitha repeat cultures - negative from 10/11/22 will need mueller (due to smitha) and 4 weeks dapto on discharge - to be done at SNF, holding off on orders until bed available due to opiate dependence history if stays negative, end date would be 11/07/22 Hyperglycemia in IDDM Increased Lantus to 30 bid SSI diabetic diet Hyperkalemia Lokelma given, resolved SMITHA changed to dapto nephro following monitor closely opiate dependence methadone DVT PPx Lovenox full code reason for continued hospitalization:bacteremia Time Spent With Patient Time: Total time managing care of this patient today ____ minutes. Quality Stroke Does the patient have a stroke diagnosis?: No VTE Prior VTE?: No VTE Risk Level:: Medical - moderate - high VTE Device Contraindication: N/A - Device Ordered VTE Drug Contraindication: N/A - Med Ordered
[2022-10-13 11:35] LABS: Glucose, Whole Blood 207 mg/dL (60-115)
[2022-10-13] MEDS: Insulin Lispro 100 UNIT/ML 3 ML VIAL SUBCUT (11:39)
--- NOTE | 2022-10-13 12:10 | HO.VASCPN ---
Subjective Subjective Date of Service: 10/13/22 Patient reports: no new complaints and feels better Interval history: Patient is postop day 2 status post right BKA. He reports no significant discomfort. Pain well controlled. He is able to move his knee well. In general feels well. Now for routine postop follow-up and dressing change. Physical Exam Vital Signs: Vital Signs: Last Vital Signs Temp 96.9 F 10/13/22 07:06 Pulse 91 10/13/22 07:06 Resp 18 10/13/22 07:06 BP 179/90 H 10/13/22 07:06 Pulse Ox 96 10/13/22 07:06 O2 Del Method Room Air 10/13/22 07:06 O2 Flow Rate 4 10/11/22 13:07 BMI result Body Mass Index 27.8 Const: General: cooperative, healthy appearing and no acute distress Orientation/consciousness: oriented to person, oriented to place and oriented to time HEENT: Head: Yes normal to inspection Neck: Carotids: no bruits Chest: Chest palpation & inspection: normal inspection of the chest Resp: Effort & Inspection: normal respiratory effort and able to speak in complete sentences Auscultation: clear to auscultation bilaterally Cardio: Rate: regular rate Heart sounds: S1 normal heart sound present and S2 normal heart sound present GI: Inspection: Yes normal to inspection Skin: Other: Right stump incision line well-healed. Dressing changed. General skin exam: no rashes or lesions noted Wounds: no wounds Neuro: General: oriented to person, oriented to place, oriented to time and CN's II-XI intact bilaterally Extrem: General: Yes normal to inspection, Yes full ROM and Yes no clubbing, cyanosis or edema Psych: Appearance: grossly normal and well kempt Speech and movement: Normal speech and movement present Affect: normal affect Progress Note: A&P Assessment and plan (1) Status post below knee amputation of right lower extremity: Status: Acute Assessment and Plan: In short patient is doing well status post BKA. I have written for dressing changes. He is stable from my perspective for discharge. Ideally would be best served with a rehab facility as he does have bilateral BKA eyes. He will follow up with me in approximately 2 weeks time for suture and staple removal. Thank you for allowing us to assist in his care. If there are any questions or concerns please do not hesitate to contact us. Time Spent With Patient Time: Total time managing care of this patient today ____ minutes. Procedures Date of Service Date of Service: 10/13/22 Quality Stroke Does the patient have a stroke diagnosis?: No VTE Prior VTE?: No VTE Risk Level:: Medical - moderate - high VTE Device Contraindication: N/A - Device Ordered VTE Drug Contraindication: N/A - Med Ordered
--- NOTE | 2022-10-13 12:55 | MHC.CM.PN ---
Addendum entered by Dedra Bustamante RN 10/13/22 13:15: MESSAGE LEFT FOR PATIENT'S OTP CLINICIAN, ERIKA @ [phone] WITH A REQUEST FOR A CALL BACK TO START THE PROCESS FOR GUEST DOSING Original Note: [facility] A BED. MADE AWARE. ONCE PICC IS ORDERED, CALL TO BE MADE TO W[facility] @ [phone]
[2022-10-13 15:13] VITALS: BP 174/84; PULSE 89; RESP 18; TEMP 36.2; O2SAT 96
--- NOTE | 2022-10-13 15:47 | P.F2F_ITS ---
Service Date Service Date: 10/13/22 Encounter Date of encounter: 10/13/22 Reasons for Services Signs and symptoms assessed: Bilateral below knee amputation Wound care Reason for half-way: wound care and teach disease management Reason for physical therapy: home safety and mobility and therapeutic exercises Homebound: Leaving the home is medically contraindicated at this time without the asist of a device and/or another person due th the listed conditions above and below. Reason homebound: unsteady gait / fall risk Certification: Based on the above findings, I certify that this patient is confined to the home and needs intermittent half-way care, physical therapy and/or speech therapy, or continues to need occupational therapy. The patient is under my care, and I have initiated the establishment of the plan of care. The patient will be followed by a physician who will periodically review the plan of care. Time Spent With Patient Time: Total time managing care of this patient today ____ minutes.
--- NOTE | 2022-10-13 15:51 | P.DS_ITS ---
DS: Providers Provider Date of Service: 10/13/22 Date of admission: 10/09/22 20:39 Primary care physician: Jose Manuel Alicea MD Consults: 10/09/22 20:17 Consult to Infectious Diseases Routine Consulting Provider: Jacqueline Lira Reason for consultation: Osteo 10/09/22 20:34 Consult to Infectious Diseases Routine Consulting Provider: [facility] Reason for consultation: osteomyelitis Has provider been notified: No 10/10/22 08:31 Consult to Vascular Surgery Routine Consulting Provider: [facility] [place] [facility] Reason for consultation: Right TMA site cellulitis and osteomyelitis Has provider been notified: No 10/11/22 11:28 Consult to Nephrology Routine Consulting Provider: Ian Rojas Reason for consultation: funmilayo DS: Diagnosis Discharge Diagnosis (1) Status post below knee amputation of right lower extremity: Status: Acute (2) MRSA bacteremia: Status: Acute (3) Acute kidney injury superimposed on CKD: Status: Acute (4) Diabetic ulcer of right lower leg: Status: Acute DS: Summary Hospital Course Hospital Course: Admission note HPI This is a 37-year-old male with a past medical history as noted below presented to the emergency department after he left this hospital today against medical advice today.? Patient was admitted to this facility on 10/05/2022 and left AMA today and 10/08/2022 where he was being treated for right TMA site cellulitis and osteomyelitis due to diabetes mellitus complications and status post bacteremia.? Patient returns back to the hospital for continued treatment and planned amputation.? Currently denying increased pain or drainage from wound, denies chest or abdominal pain , illicit substance use or sick or potential COVID exposure/contacts. 10/09/2021 lab results:? No leukocytosis on CBC, random glucose 125, BUN/creatinine 37/3.11.? The patient will be readmitted and treated, vascular we reconsulted. Hospital course The patient was admitted for non-healing Diabetic ulcer and MRSA bacteremia. evaluated by dr Mendoza from vascular surgery who did Rt leg BKA with good hemostasis post op and continuous dressing change. s/p right bka 10/11/22 . no obvious vegetation on TTE. repeat cultures - negative from 10/11/22. Vancomycin was changed to Daptomycin as he developed acute kidney injury evaluated by nephrology evaluation with partial improvement on kidney function but still above his baseline. Seen by ID who recommended 4 weeks of IV Daptomycin. the patient could not do that as he has no one to take care of his son and can not take IV Abx at home given hx of IVDU. discussed with ID and will be sending him home on Doxycycline PO as he wants to leave AMA. Time Spent with Patient Time attestation: Total time managing care of this patient today ____ minutes. Discharge coordination time: Greater than 30 minutes Quality: Safe Use of Opioids Does Pt have an Active Cancer Diagnosis on the Problem List?: No Quality: Stroke Does the patient have a stroke diagnosis?: No Physical Exam Vital Signs: Vital Signs: Last Vital Signs Temp 97.1 F 10/13/22 15:13 Pulse 89 10/13/22 15:13 Resp 18 10/13/22 15:13 BP 174/84 H 10/13/22 15:13 Pulse Ox 96 10/13/22 15:13 O2 Del Method Room Air 10/13/22 15:13 O2 Flow Rate 4 10/11/22 13:07 BMI result Body Mass Index 27.8 Const: Other: Constitutional : Awake, interactive, not in distress Neck : Normal inspection, Supple Cardiovascular : RRR, no JVP, no lower extremity edema Respiratory : good bilateral air entry, no crackles, wheezes or rhonchi Gastrointestinal: soft, lax, Normal bowel sounds, Non tender Skin : Warm, Dry, ?Left BKA, right BKA with dressing in place with no surrounding erythema Neurological : Alert & oriented x3, No focal deficit DS: Data Data Completed and Pending Completed studies during hospitalization [Text1]: Procedures Detachment at Left Lower Leg, Mid, Open Approach (08/17/21) Detachment at Right Foot, Partial 1st Ray, Open Approach (05/06/20) Detachment at Right Foot, Partial 2nd Ray, Open Approach (05/06/20) Drainage of Left Foot Skin, External Approach (01/31/21) Insertion of Infusion Device into Right Basilic Vein, Percutaneous Approach (01/31/21) Insertion of Infusion Device into Superior Vena Cava, Percutaneous Approach (05/17/20) Transfusion of Nonautologous Red Blood Cells into Peripheral Vein, Percutaneous Approach (08/05/21) Ultrasonography of Superior Vena Cava, Guidance (05/17/20) Pending studies at discharge: Pending at discharge 10/11/22 11:39 Surgical [PTH] Routine Labs on day of discharge: Laboratory Results - last 24 hr 10/11/22 10/12/22 10/12/22 19:07 15:30 15:30 WBC RBC Hgb Hct MCV MCH MCHC RDW Plt Count MPV Absolute Nucleated RBC Nucleated RBC % (auto) Sodium Potassium Chloride Carbon Dioxide Anion Gap BUN Creatinine Estim Creat Clear Calc Estimated GFR POC Glucose Fasting Glucose Calcium Urine Eosinophils % 0.0 U Random Total Protein 18 H Urine Creatinine 42.98 Hepatitis C Ab (EIA) Nonreactive HIV 1&2 Ab/P24 Ag 4thGn Nonreactive 10/12/22 10/12/22 10/13/22 15:59 20:24 05:49 WBC 8.5 RBC 2.68 L Hgb 7.4 L Hct 22.4 L MCV 83.6 MCH 27.6 MCHC 33.0 RDW 14.6 Plt Count 412 H D MPV 9.0 L Absolute Nucleated RBC 0.000 Nucleated RBC % (auto) 0.0 Sodium Potassium Chloride Carbon Dioxide Anion Gap BUN Creatinine Estim Creat Clear Calc Estimated GFR POC Glucose 169 H 163 H Fasting Glucose Calcium Urine Eosinophils % U Random Total Protein Urine Creatinine Hepatitis C Ab (EIA) HIV 1&2 Ab/P24 Ag 4thGn 10/13/22 10/13/22 10/13/22 05:49 07:09 11:27 WBC RBC Hgb Hct MCV MCH MCHC RDW Plt Count MPV Absolute Nucleated RBC Nucleated RBC % (auto) Sodium 137 Potassium 4.6 Chloride 102 Carbon Dioxide 25 Anion Gap 15 BUN 27 H Creatinine 3.19 H Estim Creat Clear Calc 35.8 Estimated GFR 22 POC Glucose 125 H 207 H Fasting Glucose 113 H Calcium 8.1 L D Urine Eosinophils % U Random Total Protein Urine Creatinine Hepatitis C Ab (EIA) HIV 1&2 Ab/P24 Ag 4thGn Preliminary micro results at discharge 10/11/22 02:57 Blood Culture - Preliminary Blood - Venous No growth after 48 hours. 10/11/22 02:57 Blood Culture - Preliminary Blood - Venous No growth after 48 hours. 10/10/22 02:09 Blood Culture - Preliminary Blood - Venous No growth after 48 hours. Discharge Plan Discharge Anticipated Discharge Date/Time: 10/13/22 15:44 Patient Disposition: Home Health Service Discharge Diagnosis: MRSA Bacteremia Acute kidney injury Osteomyelitis right foot Referrals: Jose Manuel Alicea MD [Primary Care Provider] - 1 Week Discharge Medications: New doxycycline monohydrate 100 mg capsule 100 mg PO BID Qty: 56 0RF oxycodone 5 mg tablet 5 mg PO Q6H PRN (Reason: pain) Qty: 20 0RF Rx Instructions: Partial Fill upon patient request. (DME) Wheel chair Kit See Rx Instructions .Route Qty: 1 0RF Rx Instructions: As directed Continued metformin 500 mg tablet 1,000 mg PO DAILY ferrous sulfate 324 mg (65 mg iron) tablet,delayed release (DR/EC) 324 mg PO DAILY methadone [Methadone Intensol] 10 mg/mL Concentrate 40 mg PO DAILY insulin lispro 100 unit/mL insulin pen See Protocol SUBCUT TID Qty: 15 0RF Protocol: Insulin Correction Scale Less than or equal to 110 ---- Give (units): 0 111 to 150 Give (units): 0 151 to 200 Give (units): 2 201 to 250 Give (units): 4 251 to 300 Give (units): 6 301 to 350 Give (units): 8 Greater than 350 Give (units): 10 Call MD if Blood Glucose > : 350 insulin glargine [Lantus Solostar U-100 Insulin] 100 unit/mL (3 mL) insulin pen 25 unit subcut BID Qty: 15 1RF Discharge Orders: Discharge Order (Routine); Ordered 10/13/22 Ordered By: Kate Tellez Diet: Advance to usual diet Activity on Discharge: As tolerated Stand Alone Forms: Patient Portal Discharge page Other Ambulatory Orders: Basic Metabolic Panel (Routine) Timeframe: 1 Week Facility: [facility] - Location: Laboratory Ordered By: Kate Tellez Complete Blood Count no Diff (Routine) Timeframe: 1 Week Facility: [facility] - Location: [address] [place] [address]Lab Ordered By: Kate Tellez Activity Restrictions/Additional Instructions: Wound care upon discharge: xeroform, 4x4 and Kerlix wrap to be changed daily. Please call Dr. Mendoza at [phone] for 2 week follow up for suture and staple removal Care Plan Goals: Read below Health Concerns: Read below Plan of Treatment: Read below Assessment: Oral antibiotics as you refused to stay for full IV antibiotics course. come back to hospital for fever, worsening pain or drainage follow with dr Mendoza as outpatient for wound check and michelle removal in 2 weeks To repeat blood work follow with nephrology as outpatient Discharge Date/Time: 10/13/22 16:07
--- NOTE | 2022-10-13 15:54 | MHC.CM.PN ---
DESPITE ATTEMPTS, PATIENT IS LEAVING AMA. 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 [employer] ([email or web address]).TO SECURE APPROPRAITE HOUSINGFOR PATIENT. [facility] REFERRALS PLACED FOR RN SKILLS/WOUND CARE. GIRLFRIEND, OLIVIER, TO TRANSPORT. (OLIVIER IS STAYING WITH SON WHILE PATIENT IS HERE) RN AWARE OF PLAN.
--- NOTE | 2022-10-18 09:41 | P.CDIM_ITS ---
PROVIDER RESPONSE TEXT: To clarify, the appropriate diagnosis supported by the clinical indicators: Acute osteomyelitis QUERY TEXT: PHYSICIAN'S DOCUMENTATION REQUEST Date of Query: 10/13/2022 11:41 AM EDT Patient Name: Paulo Umana Admit Date: 10/10/2022 Dear Kate Tellez, A review of the medical record indicates additional documentation may be needed. Please review below and update the documentation accordingly. Clinical Indicators: PN: Assessment/plan: right TMA site cellulitis and osteomyelitis due to DM complicated by MRSA bacter emia. s/p right bka 10/11/22 Based on the above, please clarify in the Progress Notes further specificity regarding the acuity of the Osteomyelitis. Acute osteomyelitis Subacute osteomyelitis Chronic osteomyelitis Other or unable to determine the acuity Other (explain) Clinically unable to determine (explain) Thank you, Brisa Nova, CCS, CDIS Use of terms such as suspected, likely, concern for, or probable (associated with a specific diagnosi s that is being evaluated, monitored, or treated as if it exists) are acceptable and can be coded in the inpatient se tting, when documented at the time of discharge. Please use your independent medical judgment in providing your response. THIS QUERY IS PART OF THE PERMANENT MEDICAL RECORD
== END 2022-10-13 16:07 | disposition home health service (06) | DRG 305 ==
LOC: HO.ED 20:25 → HO.EDOVER 20:44 → HO.S3 20:59
PROVIDERS: Internal Medicine; Internal Medicine Nephrology; Physician Assistant; Surgery Vascular Surgery; Admitting Provider Registered Nurse; Emergency Provider Emergency Medicine Emergency Medical Services; PCP Internal Medicine; Visit Provider Student in an Organized Health Care Education/Training Program
PROC: 0Y6H0Z1 Detachment at Right Lower Leg, High, Open Approach (ICD-10-PCS; CPT 27880; principal; 2022-10-11 10:40)
DX: T87.43 Infection of amputation stump, right lower extremity (principal); N17.9 Acute kidney failure, unspecified; R78.81 Bacteremia; M86.171 Other acute osteomyelitis, right ankle and foot; L03.115 Cellulitis of right lower limb; E11.628 Type 2 diabetes mellitus with other skin complications; B95.62 Methicillin resistant Staphylococcus aureus infection as the cause of diseases classified elsewhere; E11.69 Type 2 diabetes mellitus with other specified complication; E11.65 Type 2 diabetes mellitus with hyperglycemia; Y83.5 Amputation of limb(s) as the cause of abnormal reaction of the patient, or of later complication, without mention of misadventure at the time of the procedure; E87.5 Hyperkalemia; Z89.512 Acquired absence of left leg below knee; F11.20 Opioid dependence, uncomplicated; Z20.822 Contact with and (suspected) exposure to COVID-19; Z79.4 Long term (current) use of insulin; Z79.84 Long term (current) use of oral hypoglycemic drugs; Z79.899 Other long term (current) drug therapy
CPT/HCPCS: 36415; 80048; 80307; 81001; 82947; 84156; 85025; 85027; 86803; 86850; 86900; 86901; 86923; 87040; 87147; 87205; 87389; 87635; 88307; 89190; 99285; J0878; J1170; J1643; J2250; J2270; J2543; J2795; P9016

== ENCOUNTER 2023-01-25 11:33 | Emergency (ER) | payer OTHER, SELFPAY ==
[2023-01-25 12:12] VITALS: BP 141/85; PULSE 90; RESP 18; TEMP 36.6; O2SAT 98
--- NOTE | 2023-01-25 12:13 | ED.GENADULT ---
HPI - General Adult General Chief complaint: General Medical Stated complaint: No medication; needs refill Time Seen by Provider: 01/25/23 17:42 Source: patient Mode of arrival: ambulatory Limitations: no limitations History of Present Illness HPI narrative: Patient is a 37-year-old male with history of diabetes, anemia, osteomyelitis, substance use, MRSA, bilateral BKA presenting to the emergency department requesting medication refill of his metformin, lisinopril, and Lantus as well as test strips and lancets. He reports that he has been out of his medications for the past 2 weeks. He states that he was discharge from his PCP office and that his new PCP appointment is not scheduled until July 15, 2019 for. He denies any current physical complaints. Denies any polydipsia, polyuria, chest pain, shortness of breath, abdominal pain. Denies any nausea, vomiting, diarrhea, or constipation. MD complaint: Out of insulin and metformin Onset (ago): week(s) Associated symptoms: denies other symptoms Treatments prior to arrival: none Related Data Home Medications Medication Instructions Recorded Confirmed ferrous sulfate 324 mg (65 mg 324 mg PO DAILY 10/05/22 10/09/22 iron) tablet,delayed release metformin 500 mg tablet 1,000 mg PO DAILY 10/05/22 10/09/22 methadone 10 mg/mL oral 40 mg PO DAILY 10/07/22 10/09/22 concentrate (Methadone Intensol) Previous Rx's Medication Instructions Recorded chair, wheel (Wheel chair) #1 ea 10/13/22 doxycycline monohydrate 100 mg 100 mg PO BID #56 caps 10/13/22 capsule insulin glargine 100 unit/mL (3 25 unit (0.25 mL) subcut BID #15 mL 10/13/22 mL) subcutaneous pen (Lantus Solostar U-100 Insulin) insulin lispro 100 unit/mL See Protocol subcut TID #15 mL 10/13/22 subcutaneous pen oxycodone 5 mg tablet 5 mg PO Q6H PRN pain #20 tabs 10/13/22 blood sugar diagnostic (FreeStyle #100 ea 01/25/23 Lite Strips) insulin glargine 100 unit/mL (3 25 unit (0.25 mL) subcut BID #30 mL 01/25/23 mL) subcutaneous pen (Lantus Solostar U-100 Insulin) insulin lispro 100 unit/mL 1 sliding scale dose subcut 01/25/23 subcutaneous pen USEASDIRECTD #30 mL metformin 500 mg tablet 500 mg PO BID #120 tabs 01/25/23 pen needle, diabetic 31 gauge x #100 ea 01/25/23 3/16 (BD Ultra-Fine Mini Pen Needle) Allergies Allergy/AdvReac Type Severity Reaction Status Date / Time No Known Allergies Allergy Verified 10/05/22 08:32 [No Known Allergies*] Review of Systems Review of Systems: As per HPI. Yes all other systems are reviewed and are negative Constitutional: Constitutional: Reports as per HPI [facility] Past Medical History Medical History (Updated 01/25/23 @ 18:31 by Maryjane Olivo NP) Anemia Diabetes Diabetic infection of left foot Foot abscess, left Foot osteomyelitis, left History of substance use Hypergranulation MRSA bacteremia Non-healing ulcer Non-healing ulcer of right foot Osteomyelitis Osteomyelitis Wound dehiscence Surgical History (Updated 10/12/22 @ 07:39 by Earle Mendoza MD) History of appendectomy History of carpal tunnel surgery of left wrist History 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 Family History Family History Mother Breast cancer CVD (cardiovascular disease) Diabetes Cancer Father Diabetes CVD (cardiovascular disease) Social History Social History Household Members: Children Housing: Apartment Housing Other:: patient states his belongings are in his truck Do you presently have visiting nurse or other home services: No Unable to assess alcohol history related to: Unknown Alcohol intake: never Patient Tobacco Use Status: Current everyday Tobacco user Tobacco use type: Cigarette Cigarette Packs Per Day: 0.5 Cigarettes Per Day: 10 Years Smoked: 23 e-Cigarette/Vaping Use: Never Used Second Hand Smoke Exposure: No Substance Use Type: Heroin and IV Drugs Advance Directives: Yes Advance Directives on File: Yes Advance Directives Date on File: 08/05/21 service: No Current occupational status: unemployed and disabled Physical Exam ED Vital Signs: Vital Signs - 24 hr 01/25/23 12:12 01/25/23 18:17 Temperature 98 F 98.4 F Pulse Rate 90 98 Respiratory Rate 18 18 Blood Pressure 141/85 H 129/81 Pulse Oximetry 98 97 Oxygen Delivery Method Room Air Room Air BMI result Body Mass Index 0.0 Vital signs have been reviewed and appear to be correct. Blood pressure mildly elevated. Heart rate normal. Respiratory rate normal. Temperature normal. Oxygen saturation normal. Const General: cooperative, healthy appearing and no acute distress Orientation/consciousness: oriented to person, oriented to place, oriented to time and patient oriented x3 Limitations: no limitations HENMT Head: Yes normocephalic and Yes atraumatic Ears: external ears normal General nose exam: Normal external nose present Face and sinus: Yes face symmetric Mouth: oropharynx normal and moist mucous membranes Throat: Yes uvula midline Eyes Pupils: Equal, round and reactive pupils present Neck Neck: Yes normal visual inspection and Yes supple Resp Effort & Inspection: normal respiratory effort and able to speak in complete sentences Auscultation: clear to auscultation bilaterally Cardio Rate: regular rate Rhythm: regular rhythm Heart sounds: S1 normal heart sound present and S2 normal heart sound present GI Palpation (GI): Soft to palpation and nontender Auscultation: normoactive bowel sounds General: Yes no CVA tenderness Back/Spine/Pelvis Back: no CVA tenderness Skin General skin exam: elasticity normal and turgor normal Neuro General: oriented to person, oriented to place, oriented to time, patient oriented x3, moves all extremities, no focal motor deficits and CN's II-XI intact bilaterally Cranial nerves: Yes Equal, round and reactive pupils present Cognition (Neuro): normal cognition Extrem Right upper extremity: normal to inspection, full ROM and normal capillary refill Left upper extremity: normal to inspection, full ROM and normal capillary refill Right lower extremity: abnormal to inspection (BKA) Left lower extremity: abnormal to inspection (BKA) Psych Mental Status: mental status grossly normal Affect: normal affect Thought process: Normal thought process present Course Course Course Narrative: This is a rapid medical exam. Deferred additional HPI, ROS, PE to primary provider. 37 yo male with history of IDDM, OUD on methadone here after running out of insulin/metformin x 2 weeks. Patient reports he was discharged from his PCP. Has appt with new PCP 07/15. POC critically high in triage. Will order labs. VSS Medications Administered Discontinued Medications Generic Name Dose Route Start Last Admin Trade Name Freq PRN Reason Stop Dose Admin Sodium Chloride 1,000 mls @ 999 mls/hr 01/25/23 18:15 01/25/23 20:12 Ns IV 01/25/23 19:15 Infused .Q1H1M DAYNA Infusion Sodium Chloride 1,000 mls @ 999 mls/hr 01/25/23 19:45 01/25/23 20:35 Ns IV 01/25/23 20:45 Not Given .Q1H1M DAYNA Insulin Human Lispro 5 unit 01/25/23 18:01 01/25/23 18:27 Insulin Lispro 100 Unit/Ml 3 Ml Vial SUBCUT 01/25/23 18:02 5 unit ONCE ONE Administration Insulin Human Lispro 5 unit 01/25/23 19:36 01/25/23 20:35 Insulin Lispro 100 Unit/Ml 3 Ml Vial SUBCUT 01/25/23 19:37 5 unit ONCE ONE Administration Medical Decision Making Medical Decision Making MDM Narrative: Patient is a 37-year-old male with history of diabetes, anemia, osteomyelitis, substance use, MRSA, bilateral BKA presenting to the emergency department requesting medication refill of his metformin, lisinopril, and Lantus as well as test strips and lancets. On exam patient is awake, A+Ox3, VS WNL other than mildly elevated BP, afebrile, normal neurological exam without focal deficits, LS CTA, abdomen soft and nontender, bilateral BKAs. Given reported symptoms and physical exam findings, initial differential includes hyperglycemia, DKA, HHS, other electrolyte abnormality. Labs notable for glucose of 567. Normal anion gap, elevated BUN/Cr, elevated HCO3 on VBG, pH WNL. No evidence of DKA. Ordered insulin and IV fluids. Will reassess glucose, discharge home with prescriptions when improved. Initial glucose down to 404, will order repeat dose of insulin and additional IV fluids. RN reporting that patient refused 2 L of IV fluids but is willing to take 2nd dose of insulin. Glucose down to 283 after 2nd dose of insulin. Feel patient is stable for discharge home at this time. Will send prescriptions for metformin, lisinopril, Lantus. Left message for case management to contact patient tomorrow regarding assistance with medication refills/PCP. Return precautions discussed at bedside. Patient verbalized understanding and agreement with plan. Differential Diagnosis Differential Diagnoses: The differential diagnosis associated with the presentation includes As per MDM. Admission/Observation Consideration of admission/observation: Escalation of care including admission/observation considered Considered on arrival given elevated glucose. Lab Data [facility] Lab Attestation statement: I reviewed the patient's lab results. As per [facility]. 01/25/23 15:00 01/25/23 15:00 Labs: Lab Results 01/25/23 01/25/23 01/25/23 Range/Units 12:16 15:00 15:00 WBC 5.7 (4.8-10.8) X10*3/uL RBC 4.39 L D (4.60-5.80) X10*6/uL Hgb 12.8 L D (14.0-18.0) g/dl Hct 35.5 L D (42.0-52.0) % MCV 80.9 (80.0-98.0) fL MCH 29.2 (27.0-33.0) pg MCHC 36.1 H (31.0-36.0) g/dl RDW 13.2 (11.0-16.0) % Plt Count 153 L D (160-400) X10*3/uL MPV 10.7 (9.4-12.4) fL Immature Gran % (Auto) 0.3 (0.0-0.4) % Neut % (Auto) 57.6 (45-73) % Lymph % (Auto) 33.0 (20-40) % [place] % (Auto) 6.5 (2-11) % Eos % (Auto) 1.9 (0-4) % Baso % (Auto) 0.7 (0-2) % Lymph # (Auto) 1.9 (1.2-4.9) X10*3/uL [place] # (Auto) 0.4 (0.1-1.2) X10*3/uL Eos # (Auto) 0.1 (0.0-0.4) X10*3/uL Baso # (Auto) 0.0 (0.0-0.2) X10*3/uL Abs Immat Gran (auto) 0.02 (0.00-0.03) X10*3/uL Absolute Neuts (auto) 3.3 (2.0-8.3) x10*3/uL Absolute Nucleated RBC 0.000 (0.0-0.012) X10*3/uL Nucleated RBC % (auto) 0.0 (0.0-0.2) /100WBC VBG pH (7.32-7.43) VBG pCO2 mmHg VBG pO2 mmHg VBG HCO3 (22-26) mmol/L VBG O2 Saturation % VBG Base Excess mmol/L Sodium 133 L (135-145) mmol/L Potassium 4.7 (3.3-5.1) mmol/L Chloride 93 L (96-108) mmol/L Carbon Dioxide 30 H (22-29) mmol/L Anion Gap 15 (12-20) BUN 30 H (9-16) mg/dL Creatinine 1.58 H (0.5-1.4) mg/dL Estim Creat Clear Calc TNP Estimated GFR 49 POC Glucose > 600 H* (60-115) mg/dL Random Glucose 567 H* (60-115) mg/dL Calcium 10.0 D (8.4-10.2) mg/dL Total Bilirubin 0.8 (0.0-1.0) mg/dL Direct Bilirubin 0.1 (0.0-0.5) mg/dL AST 18 (5-37) U/L ALT 10 (0-40) U/L Alkaline Phosphatase 114 (39-117) U/L Total Protein 7.4 (6.5-8.0) g/dL Albumin 4.0 (3.5-5.0) g/dL Beta-Hydroxybutyrate 0.11 (0.02-0.27) mmol/L Urine Color Urine Appearance Urine pH (5.0-9.0) Ur Specific Clifford (1.005-1.025) Urine Protein (Neg-Trace) mg/dL Urine Glucose (UA) (Negative) mg/dL Urine Ketones (Negative) mg/dL Urine Blood (Negative) Urine Nitrite (Negative) Ur Leukocyte Esterase (Negative) Urine RBC (0-2) /HPF Urine WBC (0-5) /HPF Ur Squamous Epith Cells (0-2) /HPF Urine Bacteria (None Seen) Hyaline Casts (0-2) /LPF 01/25/23 01/25/23 01/25/23 Range/Units 15:10 18:23 18:25 WBC (4.8-10.8) X10*3/uL RBC (4.60-5.80) X10*6/uL Hgb (14.0-18.0) g/dl Hct (42.0-52.0) % MCV (80.0-98.0) fL MCH (27.0-33.0) pg MCHC (31.0-36.0) g/dl RDW (11.0-16.0) % Plt Count (160-400) X10*3/uL MPV (9.4-12.4) fL Immature Gran % (Auto) (0.0-0.4) % Neut % (Auto) (45-73) % Lymph % (Auto) (20-40) % [place] % (Auto) (2-11) % Eos % (Auto) (0-4) % Baso % (Auto) (0-2) % Lymph # (Auto) (1.2-4.9) X10*3/uL [place] # (Auto) (0.1-1.2) X10*3/uL Eos # (Auto) (0.0-0.4) X10*3/uL Baso # (Auto) (0.0-0.2) X10*3/uL Abs Immat Gran (auto) (0.00-0.03) X10*3/uL Absolute Neuts (auto) (2.0-8.3) x10*3/uL Absolute Nucleated RBC (0.0-0.012) X10*3/uL Nucleated RBC % (auto) (0.0-0.2) /100WBC VBG pH 7.36 (7.32-7.43) VBG pCO2 57 mmHg VBG pO2 42 mmHg VBG HCO3 33 H (22-26) mmol/L VBG O2 Saturation 71.0 % VBG Base Excess 6.0 mmol/L Sodium (135-145) mmol/L Potassium (3.3-5.1) mmol/L Chloride (96-108) mmol/L Carbon Dioxide (22-29) mmol/L Anion Gap (12-20) BUN (9-16) mg/dL Creatinine (0.5-1.4) mg/dL Estim Creat Clear Calc Estimated GFR POC Glucose 404 H* (60-115) mg/dL Random Glucose (60-115) mg/dL Calcium (8.4-10.2) mg/dL Total Bilirubin (0.0-1.0) mg/dL Direct Bilirubin (0.0-0.5) mg/dL AST (5-37) U/L ALT (0-40) U/L Alkaline Phosphatase (39-117) U/L Total Protein (6.5-8.0) g/dL Albumin (3.5-5.0) g/dL Beta-Hydroxybutyrate (0.02-0.27) mmol/L Urine Color Yellow Urine Appearance Clear Urine pH 5.5 (5.0-9.0) Ur Specific Clifford >= 1.030 H (1.005-1.025) Urine Protein 30 (1+) H (Neg-Trace) mg/dL Urine Glucose (UA) >=1000 H (Negative) mg/dL Urine Ketones Negative (Negative) mg/dL Urine Blood Negative (Negative) Urine Nitrite Negative (Negative) Ur Leukocyte Esterase Negative (Negative) Urine RBC 0-2 (0-2) /HPF Urine WBC 0-5 (0-5) /HPF Ur Squamous Epith Cells 0-2 (0-2) /HPF Urine Bacteria None Seen (None Seen) Hyaline Casts 0-2 (0-2) /LPF 01/25/23 01/25/23 Range/Units 19:10 20:48 WBC (4.8-10.8) X10*3/uL RBC (4.60-5.80) X10*6/uL Hgb (14.0-18.0) g/dl Hct (42.0-52.0) % MCV (80.0-98.0) fL MCH (27.0-33.0) pg MCHC (31.0-36.0) g/dl RDW (11.0-16.0) % Plt Count (160-400) X10*3/uL MPV (9.4-12.4) fL Immature Gran % (Auto) (0.0-0.4) % Neut % (Auto) (45-73) % Lymph % (Auto) (20-40) % [place] % (Auto) (2-11) % Eos % (Auto) (0-4) % Baso % (Auto) (0-2) % Lymph # (Auto) (1.2-4.9) X10*3/uL [place] # (Auto) (0.1-1.2) X10*3/uL Eos # (Auto) (0.0-0.4) X10*3/uL Baso # (Auto) (0.0-0.2) X10*3/uL Abs Immat Gran (auto) (0.00-0.03) X10*3/uL Absolute Neuts (auto) (2.0-8.3) x10*3/uL Absolute Nucleated RBC (0.0-0.012) X10*3/uL Nucleated RBC % (auto) (0.0-0.2) /100WBC VBG pH (7.32-7.43) VBG pCO2 mmHg VBG pO2 mmHg VBG HCO3 (22-26) mmol/L VBG O2 Saturation % VBG Base Excess mmol/L Sodium (135-145) mmol/L Potassium (3.3-5.1) mmol/L Chloride (96-108) mmol/L Carbon Dioxide (22-29) mmol/L Anion Gap (12-20) BUN (9-16) mg/dL Creatinine (0.5-1.4) mg/dL Estim Creat Clear Calc Estimated GFR POC Glucose 406 H* 281 H (60-115) mg/dL Random Glucose (60-115) mg/dL Calcium (8.4-10.2) mg/dL Total Bilirubin (0.0-1.0) mg/dL Direct Bilirubin (0.0-0.5) mg/dL AST (5-37) U/L ALT (0-40) U/L Alkaline Phosphatase (39-117) U/L Total Protein (6.5-8.0) g/dL Albumin (3.5-5.0) g/dL Beta-Hydroxybutyrate (0.02-0.27) mmol/L Urine Color Urine Appearance Urine pH (5.0-9.0) Ur Specific [place] (1.005-1.025) Urine Protein (Neg-Trace) mg/dL Urine Glucose (UA) (Negative) mg/dL Urine Ketones (Negative) mg/dL Urine Blood (Negative) Urine Nitrite (Negative) Ur Leukocyte Esterase (Negative) Urine RBC (0-2) /HPF Urine WBC (0-5) /HPF Ur Squamous Epith Cells (0-2) /HPF Urine Bacteria (None Seen) Hyaline Casts (0-2) /LPF External Record Review External record reviewed: Inpatient record, Office record and Outpatient record Prescription Management I considered prescription management with: Other (Insulin, metformin) Chronic Conditions Patient?s care impacted by: Diabetes Discharge Plan Discharge Clinical Impression: Hyperglycemia Patient Disposition: Home, Self-Care Instructions: Diabetic Hyperglycemia (ED) Additional Instructions: You were evaluated in the emergency department today for elevated blood glucose due to running out of medications. Your evaluation did not show evidence of DKA. You were given insulin and IV fluids and your glucose level improved. You are being prescribed metformin, lispro, and lantus. You will be contacted by the case assistant for assistance with your medication refills. Please return to the emergency department if you develop increased thirst, increased urination, shortness of breath, chest pain, abdominal pain, or any other concerning symptoms. Prescriptions: New metformin 500 mg tablet 500 mg PO BID Qty: 120 0RF insulin glargine [Lantus Solostar U-100 Insulin] 100 unit/mL (3 mL) insulin pen 25 unit subcut BID Qty: 30 0RF insulin lispro 100 unit/mL insulin pen 1 sliding scale dose subcut USEASDIRECTD Qty: 30 0RF Rx Instructions: If glucose 151-200, take 2 units if glucose 201-250, take 4 units if glucose 251-300, take 6 units if glucose 301-350, take 8 units if glucose >350, take 10 units and call PCP (DME) pen needle, diabetic [BD Ultra-Fine Mini Pen Needle] 31 gauge x 3/16 needle See Rx Instructions .Route Qty: 100 0RF Rx Instructions: As directed (DME) FreeStyle Lite Strips Strip See Rx Instructions .Route Qty: 100 0RF Rx Instructions: As directed No Action metformin 500 mg tablet 1,000 mg PO DAILY ferrous sulfate 324 mg (65 mg iron) tablet,delayed release (DR/EC) 324 mg PO DAILY methadone [Methadone Intensol] 10 mg/mL Concentrate 40 mg PO DAILY doxycycline monohydrate 100 mg capsule 100 mg PO BID Qty: 56 0RF oxycodone 5 mg tablet 5 mg PO Q6H PRN (Reason: pain) Qty: 20 0RF Rx Instructions: Partial Fill upon patient request. insulin lispro 100 unit/mL insulin pen See Protocol SUBCUT TID Qty: 15 0RF Protocol: Insulin Correction Scale Less than or equal to 110 ---- Give (units): 0 111 to 150 Give (units): 0 151 to 200 Give (units): 2 201 to 250 Give (units): 4 251 to 300 Give (units): 6 301 to 350 Give (units): 8 Greater than 350 Give (units): 10 Call MD if Blood Glucose > : 350 insulin glargine [Lantus Solostar U-100 Insulin] 100 unit/mL (3 mL) insulin pen 25 unit subcut BID Qty: 15 1RF (DME) Wheel chair Kit See Rx Instructions .Route Qty: 1 0RF Rx Instructions: As directed Referrals: [facility] [Provider Group]
[2023-01-25 12:20] LABS: Glucose, Whole Blood > 600 mg/dL (60-115)
[2023-01-25 15:17] LABS: VBG HCO3 33 mmol/L (22-26); VBG pCO2 57 mmHg; VBG pH 7.36 (7.32-7.43); VBG pO2 42 mmHg
[2023-01-25 15:17] LABS: Venous Blood Gas Refer to POC result
[2023-01-25 15:18] LABS: Basophils Percent Auto 0.7 % (0-2); Eosinophils Absolute Auto 0.1 X10*3/uL (0.0-0.4); Eosinophils Percent Auto 1.9 % (0-4); Hematocrit 35.5 % (42.0-52.0); Hemoglobin 12.8 g/dl (14.0-18.0); Imm Gran Abs Auto 0.02 X10*3/uL (0.00-0.03); Imm Gran Pct Auto 0.3 % (0.0-0.4); Lymphocytes Absolute Auto 1.9 X10*3/uL (1.2-4.9); MANUAL DIFF FLAG NO; Mean Corpuscular HGB Conc 36.1 g/dl (31.0-36.0); Mean Corpuscular Hemoglobin 29.2 pg (27.0-33.0); Mean Corpuscular Volume 80.9 fL (80.0-98.0); Mean Platelet Volume 10.7 fL (9.4-12.4); Monocytes Absolute Auto 0.4 X10*3/uL (0.1-1.2); Monocytes Percent Auto 6.5 % (2-11); Neutrophils Absolute Auto 3.3 x10*3/uL (2.0-8.3); Neutrophils Percent Auto 57.6 % (45-73); Platelet Count 153 X10*3/uL (160-400); Red Blood Count 4.39 X10*6/uL (4.60-5.80); Red Cell Distribution Width 13.2 % (11.0-16.0); White Blood Count 5.7 X10*3/uL (4.8-10.8)
[2023-01-25 15:44] LABS: Beta-Hydroxybutyrate 0.11 mmol/L (0.02-0.27)
[2023-01-25 15:56] LABS: Alanine Aminotransferase 10 U/L (0-40); Alkaline Phosphatase 114 U/L (39-117); Anion Gap 15 (12-20); Aspartate Amino Transferase 18 U/L (5-37); Bilirubin Direct 0.1 mg/dL (0.0-0.5); Bilirubin Total 0.8 mg/dL (0.0-1.0); Blood Urea Nitrogen 30 mg/dL (9-16); Carbon Dioxide 30 mmol/L (22-29); Chloride 93 mmol/L (96-108); Estimated Glomerular Filt Rate 49; Glucose Random 567 mg/dL (60-115); Potassium 4.7 mmol/L (3.3-5.1); Sodium 133 mmol/L (135-145); Total Protein 7.4 g/dL (6.5-8.0)
[2023-01-25 18:17] VITALS: BP 129/81; PULSE 98; RESP 18; TEMP 36.9; O2SAT 97
[2023-01-25] MEDS: Insulin Lispro 100 UNIT/ML 3 ML VIAL SUBCUT ×2 (18:27→20:35)
[2023-01-25 18:30] LABS: Glucose, Whole Blood 404 mg/dL (60-115)
[2023-01-25 18:34] LABS: Appearance Urine Clear; Color Urine Yellow; Glucose Urine UA >=1000 mg/dL (Negative); Leukocyte Esterase Urine Negative (Negative); Nitrite Urine Negative (Negative); PH 5.5 (5.0-9.0); Specific Gravity - Urine >= 1.030 (1.005-1.025); UMIC TRIGGER UACC YES; Urine Blood Negative (Negative); Urine Ketones Negative (Negative); Urine Protein 30 (1+) mg/dL (Neg-Trace)
[2023-01-25 18:40] LABS: Bacteria Urine None Seen (None Seen); Hyaline Casts Urine 0-2 /LPF (0-2); RBC Urine 0-2 /HPF (0-2); Squamous Epithelial Cell Urine 0-2 /HPF (0-2); WBC Urine 0-5 /HPF (0-5)
[2023-01-25] MEDS: 0.9 % Sodium Chloride 1,000 ML 999 ML IV (19:03)
--- NOTE | 2023-01-25 19:07 | PC.NURSE ---
assumed care of pt received report from Althea RN aox4 no apparent distress pt refuses to change into hospital attire pt is sitting in w/c while using his cell, resting quietly able to make needs known denies pain, sob IV line obtained R arm NS 1L bag started per MAR
[2023-01-25 19:14] LABS: Glucose, Whole Blood 406 mg/dL (60-115)
--- NOTE | 2023-01-25 20:39 | PC.NURSE ---
refused 2nd 1L of NS states he needs to get back home to his children provider aware
[2023-01-25 20:53] LABS: Glucose, Whole Blood 281 mg/dL (60-115)
--- NOTE | 2023-01-25 20:55 | PC.NURSE ---
Discharge instructions given and explained to pt aox4 All of questions answered No apparent distress mode of d/c w/c (baseline) IV cath tip intact upon removal
[2023-01-25 20:57] VITALS: BP 130/83; PULSE 99; RESP 16; TEMP 36.7; O2SAT 99
--- NOTE | 2023-01-27 14:39 | MHC.CM.ED ---
Received case management consult from Maryjane CORREA. Patient came to ER due to running out of insulin. Patient found a new PCP, but his 1st appointment is 07/15/2023. Patient has been active with Dr Alicea's office in the past. T/W spoke with Dr Alicea's office. He is still a patient at their office. He has had a lot of no call, no show for appointments but he is still active as a patient. T/W spoke with patient via telephone. Patient was not aware he was still active with Dr Alicea's office. He is aware he must go to all scheduled appointments. Patient verbalized understanding and stated he would make a follow up appointment with Dr Alicea's office.
== END 2023-01-25 20:55 | disposition home or self-care (01) ==
PROVIDERS: Nurse Practitioner Family; Emergency Provider Emergency Medicine
DX: E11.65 Type 2 diabetes mellitus with hyperglycemia (principal); F17.210 Nicotine dependence, cigarettes, uncomplicated; Z79.4 Long term (current) use of insulin; Z79.899 Other long term (current) drug therapy; Z71.6 Tobacco abuse counseling
CPT/HCPCS: 36415; 80048; 80076; 81001; 82010; 82803; 82947; 85025; 96360; 99284

== ENCOUNTER 2023-04-22 16:04 | Emergency (ER) | payer OTHER, SELFPAY ==
--- NOTE | 2023-04-22 16:29 | ED.GENADULT ---
HPI - General Adult General Chief complaint: Medical Clearance Stated complaint: Requesting drug screening per DCF Time Seen by Provider: 04/22/23 16:28 Source: patient Mode of arrival: ambulatory Limitations: no limitations History of Present Illness HPI narrative: Patient is a 37 year old assigned male at with a history of DM presenting to the emergency department today requesting a drug screen for DCF. Patient states that he needs to have a drug screen completed for DCF. Patient denies any dizziness, lightheadedness, abdominal pain, nausea, vomiting, fever, chills, blurry vision, double vision, loss of vision, chest pain, difficulty breathing, shortness of breath, back pain, night sweats, pain with urination, increased urinary frequency, increased urinary urgency, blood in his urine or stool, syncope or a near syncopal episode, recent trauma or falls, bowel incontinence, bladder incontinence, bowel retention, bladder retention, or any other complaints at this time. Relieving factors: none Exacerbating factors: none Associated symptoms: denies other symptoms Treatments prior to arrival: none Related Data Home Medications Medication Instructions Recorded Confirmed ferrous sulfate 324 mg (65 mg 324 mg PO DAILY 10/05/22 10/09/22 iron) tablet,delayed release metformin 500 mg tablet 1,000 mg PO DAILY 10/05/22 10/09/22 methadone 10 mg/mL oral 40 mg PO DAILY 10/07/22 10/09/22 concentrate (Methadone Intensol) Previous Rx's Medication Instructions Recorded chair, wheel (Wheel chair) #1 ea 10/13/22 doxycycline monohydrate 100 mg 100 mg PO BID #56 caps 10/13/22 capsule insulin glargine 100 unit/mL (3 25 unit (0.25 mL) subcut BID #15 mL 10/13/22 mL) subcutaneous pen (Lantus Solostar U-100 Insulin) insulin lispro 100 unit/mL See Protocol subcut TID #15 mL 10/13/22 subcutaneous pen oxycodone 5 mg tablet 5 mg PO Q6H PRN pain #20 tabs 10/13/22 blood sugar diagnostic (FreeStyle #100 ea 01/25/23 Lite Strips) insulin glargine 100 unit/mL (3 25 unit (0.25 mL) subcut BID #30 mL 01/25/23 mL) subcutaneous pen (Lantus Solostar U-100 Insulin) insulin lispro 100 unit/mL 1 sliding scale dose subcut 01/25/23 subcutaneous pen USEASDIRECTD #30 mL metformin 500 mg tablet 500 mg PO BID #120 tabs 01/25/23 pen needle, diabetic 31 gauge x #100 ea 01/25/23 3/16 (BD Ultra-Fine Mini Pen Needle) Allergies Allergy/AdvReac Type Severity Reaction Status Date / Time No Known Allergies Allergy Verified 10/05/22 08:32 [No Known Allergies*] Review of Systems Constitutional: Constitutional: Reports no additional constitutional complaints, Denies chills, Denies fever(s) and Denies night sweats Eyes: Eyes: Reports no additional eye complaints, Denies blurry vision, Denies change in vision, Denies diplopia, Denies eye discharge, Denies loss of vision and Denies eye pain ENT: Denies dizziness Cardiovascular: Cardiovascular: Reports no additional cardiovascular complaints, Denies chest pain, Denies lightheadedness, Denies Loss of Consciousness and Denies dyspnea Respiratory: Respiratory: Reports no additional respiratory complaints and Denies dyspnea Gastrointestinal: Gastrointestinal: Reports no additional gastrointestinal complaints, Denies abdominal pain, Denies melena, Denies hematochezia, Denies change in bowel habits and Denies change in stool character Genitourinary: Genitourinary: Reports no additional male genitourinary complaints, Denies hematuria, Denies oliguria, Denies difficulty urinating, Denies dysuria, Denies urinary frequency, Denies urinary hesitancy, Denies urinary incontinence and Denies urinary urgency Musculoskeletal: Musculoskeletal: Reports no additional musculoskeletal complaints, Denies numbness and Denies tingling Neurologic: Denies dizziness, Denies loss of vision, Denies numbness and Denies tingling Psychiatric: Psychiatric: Reports no additional psychiatric complaints Endocrine: Endocrine: Reports no additional endocrine complaints Hematologic/Lymphatic: Hematologic/Lymphatic: Reports no additional hematologic/lymphatic complaints Allergic/Immunologic: Allergic/Immunologic: Reports no additional allergic/immunologic complaints PMFSH Past Medical History Attestation statement: The following information was validated with the patient. Source: old records reviewed and nursing notes reviewed Medical History MRSA bacteremia Wound dehiscence Hypergranulation Non-healing ulcer Osteomyelitis Foot abscess, left Diabetic infection of left foot Foot osteomyelitis, left Osteomyelitis History of substance use Anemia Diabetes Non-healing ulcer of right foot Surgical History History of appendectomy History of transmetatarsal amputation of left foot History of carpal tunnel surgery of left wrist Toe amputee Family History Family History Mother Breast cancer CVD (cardiovascular disease) Diabetes Cancer Father Diabetes CVD (cardiovascular disease) Social History Social History Household Members: Children Housing: Apartment Housing Other:: patient states his belongings are in his truck Do you presently have visiting nurse or other home services: No Unable to assess alcohol history related to: Unknown Alcohol intake: never Patient Tobacco Use Status: Current everyday Tobacco user Tobacco use type: Cigarette Cigarette Packs Per Day: 0.5 Cigarettes Per Day: 10 Years Smoked: 23 e-Cigarette/Vaping Use: Never Used Second Hand Smoke Exposure: No Substance Use Type: Heroin and IV Drugs Advance Directives: Yes Advance Directives on File: Yes Advance Directives Date on File: 08/05/21 service: No Current occupational status: unemployed and disabled Physical Exam ED Vital Signs: Vital Signs - 24 hr 04/22/23 16:42 Temperature 98.8 F Pulse Rate 93 Respiratory Rate 15 Blood Pressure 163/82 H Pulse Oximetry 97 Oxygen Delivery Method Room Air BMI result Body Mass Index 39.1 Const General: cooperative, no acute distress, alert and awake Nutritional Appearance: well nourished Orientation/consciousness: patient oriented x3 Limitations: no limitations [facility] Head: Yes normal to inspection and Yes atraumatic Ears: hearing grossly normal bilaterally and external ears normal General nose exam: Normal external nose present, no nasal discharge noted and no epistaxis Face and sinus: Yes normal facial exam, No abrasion and No laceration Mouth: Normal oral and palatal mucosa present, no drooling and no muffled voice Eyes General: appearance normal, both eyes and all related structures Periorbital: periorbital findings normal Eyelids: Yes eyelids normal Conjunctivae: conjunctivae normal Pupils: Equal, round and reactive pupils present EOM: EOMs intact bilaterally Neck Neck: Yes normal visual inspection, Yes full ROM and Yes no lymphadenopathy Chest Chest palpation & inspection: normal inspection of the chest Resp Effort & Inspection: normal respiratory effort and able to speak in complete sentences GI Inspection: Yes normal to inspection Neuro General: patient oriented x3 and moves all extremities Cranial nerves: Yes Equal, round and reactive pupils present Cognition (Neuro): normal cognition Motor exam (neuro): 5/5 motor strength present throughout Sensory Exam: Normal double simultaneous stimulation for sensation Coordination: [id number] test normal Extrem General: Yes normal to inspection, Yes full ROM and Yes capillary refill normal Psych Appearance: grossly normal Mental Status: mental status grossly normal Affect: normal affect Attitude: cooperative Thought process: Normal thought process present Thought content: Normal thought content present Insight: Good insight present (Psych) Medical Decision Making Medical Decision Making [facility] Narrative: Patient is a 37 year old assigned male at with a history of DM presenting to the emergency department today for a urine drug screen. Patient's physical exam was unremarkable. Patient's urine drug screen was positive for opiates and fentanyl. I explained my physical exam findings as well as all test results to the patient. I answered all questions asked by the patient. I stressed the importance of the patient taking his medication as prescribed. I stressed the importance of the patient following up with his primary care provider. I stressed the importance of the patient returning to the emergency department immediately if he were to develop any dizziness, shortness of breath, difficulty breathing, chest pain, blurry vision, loss of vision, nausea, vomiting, abdominal pain, fever, chills, back pain, or any other complaints. Patient verbalized agreement and understanding with this treatment plan and discharge. Differential Diagnosis Differential Diagnoses: The differential diagnosis associated with the presentation includes Medical clearance Drug screen Lab Data [facility] Lab Attestation statement: I reviewed the patient's lab results. My interpretation of these results are in the [facility] Rationale portion of this note. Labs: Lab Results 04/22/23 Range/Units 16:38 Urine Opiates Screen POSITIVE H (Not Detect) Urine Fentanyl Screen POSITIVE H (Not Detect) Ur Barbiturates Screen Not Detected (Not Detect) Ur Phencyclidine Scrn Not Detected (Not Detect) Ur Amphetamines Screen Not Detected (Not Detect) U Benzodiazepines Scrn Not Detected (Not Detect) Urine Cocaine Screen Not Detected (Not Detect) U Marijuana (THC) Screen Not Detected (Not Detect) Discharge Plan Discharge Clinical Impression: Encounter for drug screening Patient Disposition: Home, Self-Care Additional Instructions: Follow up with your primary care provider. Return to the emergency department immediately if you develop any dizziness, shortness of breath, difficulty breathing, chest pain, blurry vision, loss of vision, nausea, vomiting, abdominal pain, fever, chills, back pain, or any other complaints. Prescriptions: No Action metformin 500 mg tablet 1,000 mg PO DAILY ferrous sulfate 324 mg (65 mg iron) tablet,delayed release (DR/EC) 324 mg PO DAILY methadone [Methadone Intensol] 10 mg/mL Concentrate 40 mg PO DAILY metformin 500 mg tablet 500 mg PO BID Qty: 120 0RF insulin glargine [Lantus Solostar U-100 Insulin] 100 unit/mL (3 mL) insulin pen 25 unit subcut BID Qty: 30 0RF insulin lispro 100 unit/mL insulin pen 1 sliding scale dose subcut USEASDIRECTD Qty: 30 0RF Rx Instructions: If glucose 151-200, take 2 units if glucose 201-250, take 4 units if glucose 251-300, take 6 units if glucose 301-350, take 8 units if glucose >350, take 10 units and call PCP (DME) pen needle, diabetic [BD Ultra-Fine Mini Pen Needle] 31 gauge x 3/16 needle See Rx Instructions .Route Qty: 100 0RF Rx Instructions: As directed (DME) FreeStyle Lite Strips Strip See Rx Instructions .Route Qty: 100 0RF Rx Instructions: As directed doxycycline monohydrate 100 mg capsule 100 mg PO BID Qty: 56 0RF oxycodone 5 mg tablet 5 mg PO Q6H PRN (Reason: pain) Qty: 20 0RF Rx Instructions: Partial Fill upon patient request. insulin lispro 100 unit/mL insulin pen See Protocol SUBCUT TID Qty: 15 0RF Protocol: Insulin Correction Scale Less than or equal to 110 ---- Give (units): 0 111 to 150 Give (units): 0 151 to 200 Give (units): 2 201 to 250 Give (units): 4 251 to 300 Give (units): 6 301 to 350 Give (units): 8 Greater than 350 Give (units): 10 Call MD if Blood Glucose > : 350 insulin glargine [Lantus Solostar U-100 Insulin] 100 unit/mL (3 mL) insulin pen 25 unit subcut BID Qty: 15 1RF (DME) Wheel chair Kit See Rx Instructions .Route Qty: 1 0RF Rx Instructions: As directed Referrals: Jose Manuel Alicea MD [Primary Care Provider] - Interventions: ED Discharge Assessment Last Done: 04/22/23 17:03 Discharge Date/Time: 04/22/23 17:17 Print Language: Japanese
[2023-04-22 16:42] VITALS: BP 163/82; PULSE 93; RESP 15; TEMP 37.1; O2SAT 97; BMI 39.1
[2023-04-22 16:53] LABS: Amphetamine Screen Urine Not Detected (Not Detect); Barbiturates, Urine Not Detected (Not Detect); Benzodiazepines Screen Urine Not Detected (Not Detect); Cannabinoid Screen Urine Not Detected (Not Detect); Cocaine Screen Urine Not Detected (Not Detect); Fentanyl, urine POSITIVE (Not Detect); Opiate Screen Urine POSITIVE (Not Detect); Phencyclidine Screen Urine Not Detected (Not Detect)
== END 2023-04-22 17:17 | disposition home or self-care (01) ==
LOC: HO.ED 17:04
PROVIDERS: Physician Assistant Medical; Emergency Provider Emergency Medicine; PCP Internal Medicine
DX: Z02.83 Encounter for blood-alcohol and blood-drug test (principal); F11.20 Opioid dependence, uncomplicated
CPT/HCPCS: 80307; 99282

== ENCOUNTER 2023-05-04 12:21 | Emergency (ER) | payer OTHER, SELFPAY ==
[2023-05-04 13:57] VITALS: BP 141/91; PULSE 80; RESP 15; TEMP 36.4; O2SAT 99; BMI 37.8
--- NOTE | 2023-05-04 13:59 | ED.GENADULT ---
HPI - General Adult General Chief complaint: General Medical Stated complaint: Drug Screening for DCF Time Seen by Provider: 05/04/23 14:33 Source: patient Mode of arrival: ambulatory Limitations: no limitations History of Present Illness HPI narrative: 37 yold male presents to the ED for asking for drug urine test to comply with DCF. Patient states no physical complaints. Patient is not suicidal or homicidal. Related Data Home Medications Medication Instructions Recorded Confirmed ferrous sulfate 324 mg (65 mg 324 mg PO DAILY 10/05/22 10/09/22 iron) tablet,delayed release metformin 500 mg tablet 1,000 mg PO DAILY 10/05/22 10/09/22 methadone 10 mg/mL oral 40 mg PO DAILY 10/07/22 10/09/22 concentrate (Methadone Intensol) Previous Rx's Medication Instructions Recorded chair, wheel (Wheel chair) #1 ea 10/13/22 doxycycline monohydrate 100 mg 100 mg PO BID #56 caps 10/13/22 capsule insulin glargine 100 unit/mL (3 25 unit (0.25 mL) subcut BID #15 mL 10/13/22 mL) subcutaneous pen (Lantus Solostar U-100 Insulin) insulin lispro 100 unit/mL See Protocol subcut TID #15 mL 10/13/22 subcutaneous pen oxycodone 5 mg tablet 5 mg PO Q6H PRN pain #20 tabs 10/13/22 blood sugar diagnostic (FreeStyle #100 ea 01/25/23 Lite Strips) insulin glargine 100 unit/mL (3 25 unit (0.25 mL) subcut BID #30 mL 01/25/23 mL) subcutaneous pen (Lantus Solostar U-100 Insulin) insulin lispro 100 unit/mL 1 sliding scale dose subcut 01/25/23 subcutaneous pen USEASDIRECTD #30 mL metformin 500 mg tablet 500 mg PO BID #120 tabs 01/25/23 pen needle, diabetic 31 gauge x #100 ea 01/25/2309/23 (BD Ultra-Fine Mini Pen Needle) Allergies Allergy/AdvReac Type Severity Reaction Status Date / Time No Known Allergies Allergy Verified 10/05/22 08:32 [No Known Allergies*] Review of Systems Review of Systems: requesting UA drug screen Yes all other systems are reviewed and are negative PMFSH Past Medical History Medical History MRSA bacteremia Wound dehiscence Hypergranulation Non-healing ulcer Osteomyelitis Foot abscess, left Diabetic infection of left foot Foot osteomyelitis, left Osteomyelitis History of substance use Anemia Diabetes Non-healing ulcer of right foot Surgical History History of appendectomy History of transmetatarsal amputation of left foot History of carpal tunnel surgery of left wrist Toe amputee Family History Family History Mother Breast cancer CVD (cardiovascular disease) Diabetes Cancer Father Diabetes CVD (cardiovascular disease) Social History Social History Household Members: Children Housing: Apartment Housing Other:: patient states his belongings are in his truck Do you presently have visiting nurse or other home services: No Unable to assess alcohol history related to: Unknown Alcohol intake: never Patient Tobacco Use Status: Current everyday Tobacco user Tobacco use type: Cigarette Cigarette Packs Per Day: 0.5 Cigarettes Per Day: 10 Years Smoked: 23 e-Cigarette/Vaping Use: Never Used Second Hand Smoke Exposure: No Substance Use Type: Heroin and IV Drugs Advance Directives: Yes Advance Directives on File: Yes Advance Directives Date on File: 08/05/21 service: No Current occupational status: unemployed and disabled Physical Exam ED Vital Signs: Vital Signs - 24 hr 05/04/23 13:57 Temperature 97.5 F Pulse Rate 80 Respiratory Rate 15 Blood Pressure 141/91 H Pulse Oximetry 99 Oxygen Delivery Method Room Air BMI result Body Mass Index 37.8 Const General: cooperative, healthy appearing, comfortable, no acute distress, well developed, alert, awake and Physically active Orientation/consciousness: oriented to person, oriented to place, oriented to time and patient oriented x3 HENMT Head: Yes normal to inspection, Yes No palpable skull fracture present, Yes normocephalic and Yes atraumatic Eyes General: appearance normal, both eyes and all related structures Neck Neck: Yes normal visual inspection, Yes full ROM, Yes no lymphadenopathy, Yes no meningeal signs, Yes trachea midline, Yes supple, No anterior neck swelling and No tender Chest Chest palpation & inspection: normal inspection of the chest and normal palpation of entire chest wall Resp Effort & Inspection: normal respiratory effort and able to speak in complete sentences Auscultation: clear to auscultation bilaterally Cardio Jugular venous distension: no JVD Heart sounds: S1 normal heart sound present and S2 normal heart sound present GI Inspection: Yes normal to inspection Palpation (GI): Soft to palpation, not firm, nontender, no guarding and not rigid General: Yes no CVA tenderness Back/Spine/Pelvis Back: no CVA tenderness and No back tenderness Skin General skin exam: no rashes or lesions noted, elasticity normal and turgor normal Neuro General: oriented to person, oriented to place, oriented to time, patient oriented x3, tone normal, moves all extremities, Normal light touch and pain sensation, no meningeal signs and no focal motor deficits Extrem General: Yes normal to inspection and Yes full ROM Psych Appearance: grossly normal, well kempt and not disheveled Course Course Course Narrative: RME: 37 yold male presents to the ED for drug screen as recommended by [facility]. Patient is asymptomatic. Medical Decision Making Medical Decision Making [facility] Narrative: 37 yold male presents to the ED drug screen as required by [facility]. Patient is asympatomic. Patient states no physical or psych complaints. patient informed of UA tox results and patient given copy of UA tox lab resutls Differential Diagnosis Differential Diagnoses: The differential diagnosis associated with the presentation includes (substance abuse) Lab Data [facility] Lab Attestation statement: I reviewed the patient's lab results. Labs: Lab Results 05/04/23 Range/Units 14:05 Urine Opiates Screen POSITIVE H (Not Detect) Urine Fentanyl Screen POSITIVE H (Not Detect) Ur Barbiturates Screen Not Detected (Not Detect) Ur Phencyclidine Scrn Not Detected (Not Detect) Ur Amphetamines Screen Not Detected (Not Detect) U Benzodiazepines Scrn Not Detected (Not Detect) Urine Cocaine Screen Not Detected (Not Detect) U Marijuana (THC) Screen Not Detected (Not Detect) External Record Review External record reviewed: Other (prior ED visit) Social Determinants Patient?s care significantly limited by Social Determinants of Health including: Other Social Determinant of Health (subustance abuse) Discharge Plan Discharge Clinical Impression: Adult general medical exam Patient Disposition: Home, Self-Care Instructions: Normal Exam (ED) Additional Instructions: REturn to the ED for any concerning symptoms. please follow up with PCP. Prescriptions: No Action metformin 500 mg tablet 1,000 mg PO DAILY ferrous sulfate 324 mg (65 mg iron) tablet,delayed release (DR/EC) 324 mg PO DAILY methadone [Methadone Intensol] 10 mg/mL Concentrate 40 mg PO DAILY metformin 500 mg tablet 500 mg PO BID Qty: 120 0RF insulin glargine [Lantus Solostar U-100 Insulin] 100 unit/mL (3 mL) insulin pen 25 unit subcut BID Qty: 30 0RF insulin lispro 100 unit/mL insulin pen 1 sliding scale dose subcut USEASDIRECTD Qty: 30 0RF Rx Instructions: If glucose 151-200, take 2 units if glucose 201-250, take 4 units if glucose 251-300, take 6 units if glucose 301-350, take 8 units if glucose >350, take 10 units and call PCP (DME) pen needle, diabetic [BD Ultra-Fine Mini Pen Needle] 31 gauge x 3/16 needle See Rx Instructions .Route Qty: 100 0RF Rx Instructions: As directed (DME) FreeStyle Lite Strips Strip See Rx Instructions .Route Qty: 100 0RF Rx Instructions: As directed doxycycline monohydrate 100 mg capsule 100 mg PO BID Qty: 56 0RF oxycodone 5 mg tablet 5 mg PO Q6H PRN (Reason: pain) Qty: 20 0RF Rx Instructions: Partial Fill upon patient request. insulin lispro 100 unit/mL insulin pen See Protocol SUBCUT TID Qty: 15 0RF Protocol: Insulin Correction Scale Less than or equal to 110 ---- Give (units): 0 111 to 150 Give (units): 0 151 to 200 Give (units): 2 201 to 250 Give (units): 4 251 to 300 Give (units): 6 301 to 350 Give (units): 8 Greater than 350 Give (units): 10 Call MD if Blood Glucose > : 350 insulin glargine [Lantus Solostar U-100 Insulin] 100 unit/mL (3 mL) insulin pen 25 unit subcut BID Qty: 15 1RF (DME) Wheel chair Kit See Rx Instructions .Route Qty: 1 0RF Rx Instructions: As directed Interventions: ED Discharge Assessment Last Done: 05/04/23 14:42 Discharge Date/Time: 05/04/23 14:42 Print Language: Irish
[2023-05-04 14:22] LABS: Amphetamine Screen Urine Not Detected (Not Detect); Barbiturates, Urine Not Detected (Not Detect); Benzodiazepines Screen Urine Not Detected (Not Detect); Cannabinoid Screen Urine Not Detected (Not Detect); Cocaine Screen Urine Not Detected (Not Detect); Fentanyl, urine POSITIVE (Not Detect); Opiate Screen Urine POSITIVE (Not Detect); Phencyclidine Screen Urine Not Detected (Not Detect)
== END 2023-05-04 14:42 | disposition home or self-care (01) ==
LOC: HO.ED 14:39
PROVIDERS: Physician Assistant; Emergency Provider Emergency Medicine; PCP Internal Medicine
DX: Z02.83 Encounter for blood-alcohol and blood-drug test (principal); F19.10 Other psychoactive substance abuse, uncomplicated; F11.20 Opioid dependence, uncomplicated; E11.9 Type 2 diabetes mellitus without complications; Z79.4 Long term (current) use of insulin; F17.210 Nicotine dependence, cigarettes, uncomplicated
CPT/HCPCS: 80307; 99282; 99283

== ENCOUNTER 2023-05-24 16:34 | Emergency (ER) | payer OTHER, SELFPAY ==
--- NOTE | 2023-05-24 16:56 | ED.GENADULT ---
HPI - General Adult General Chief complaint: General Medical Stated complaint: Medical clearance for DCF Time Seen by Provider: 05/24/23 17:18 Source: patient Mode of arrival: ambulatory Limitations: no limitations History of Present Illness HPI narrative: 38 yo male presents requesting drug test for DCF. Doesn't elaborate much more about this. Denies medical complaints. Tells me he feels fine they just have to make sure there is nothing in my sytem . No si or HI. States he is on methadone Related Data Home Medications Medication Instructions Recorded Confirmed ferrous sulfate 324 mg (65 mg 324 mg PO DAILY 10/05/22 10/09/22 iron) tablet,delayed release metformin 500 mg tablet 1,000 mg PO DAILY 10/05/22 10/09/22 methadone 10 mg/mL oral 40 mg PO DAILY 10/07/22 10/09/22 concentrate (Methadone Intensol) Previous Rx's Medication Instructions Recorded chair, wheel (Wheel chair) #1 ea 10/13/22 doxycycline monohydrate 100 mg 100 mg PO BID #56 caps 10/13/22 capsule insulin glargine 100 unit/mL (3 25 unit (0.25 mL) subcut BID #15 mL 10/13/22 mL) subcutaneous pen (Lantus Solostar U-100 Insulin) insulin lispro 100 unit/mL See Protocol subcut TID #15 mL 10/13/22 subcutaneous pen oxycodone 5 mg tablet 5 mg PO Q6H PRN pain #20 tabs 10/13/22 blood sugar diagnostic (FreeStyle #100 ea 01/25/23 Lite Strips) insulin glargine 100 unit/mL (3 25 unit (0.25 mL) subcut BID #30 mL 01/25/23 mL) subcutaneous pen (Lantus Solostar U-100 Insulin) insulin lispro 100 unit/mL 1 sliding scale dose subcut 01/25/23 subcutaneous pen USEASDIRECTD #30 mL metformin 500 mg tablet 500 mg PO BID #120 tabs 01/25/23 pen needle, diabetic 31 gauge x #100 ea 01/25/2309/23 (BD Ultra-Fine Mini Pen Needle) Allergies Allergy/AdvReac Type Severity Reaction Status Date / Time No Known Allergies Allergy Verified 10/05/22 08:32 [No Known Allergies*] Review of Systems Review of Systems: Constitutional : No Weight loss, No Fever, No Chills, No Fatigue, No Malaise ENT/Mouth : No sore throat, No Rhinorrhea Eyes: No Eye Pain, No Swelling, No Redness Cardiovascular : No Chest Pain, No SOB, No Dyspnea on Exertion, No Orthopnea, No Edema, No Palpitations Respiratory : No Cough, No Sputum, No Wheezing Gastrointestinal : No Nausea, No Vomiting, No Diarrhea, No Constipation, No abdominal Pain, No Hematochezia, No Melena Genitourinary : No Dysuria, No Urinary Frequency, No Hematuria, Musculoskeletal : No joint pain, No Myalgias, No Joint Swelling Skin : No Skin Lesions, No rash Neuro : No Weakness, No Numbness, No Dizziness, No Headache Psych : No Anxiety/Panic, No Depression All other systems reviewed and are negative Yes all other systems are reviewed and are negative [facility] Past Medical History Attestation statement: The following information was validated with the patient. Source: old records reviewed and nursing notes reviewed Medical History MRSA bacteremia Wound dehiscence Hypergranulation Non-healing ulcer Osteomyelitis Foot abscess, left Diabetic infection of left foot Foot osteomyelitis, left Osteomyelitis History of substance use Anemia Diabetes Non-healing ulcer of right foot Surgical History History of appendectomy History of transmetatarsal amputation of left foot History of carpal tunnel surgery of left wrist Toe amputee Family History Family History Mother Breast cancer CVD (cardiovascular disease) Diabetes Cancer Father Diabetes CVD (cardiovascular disease) Social History Social History Household Members: Children Housing: Apartment Housing Other:: patient states his belongings are in his truck Do you presently have visiting nurse or other home services: No Unable to assess alcohol history related to: Unknown Alcohol intake: never Patient Tobacco Use Status: Current everyday Tobacco user Tobacco use type: Cigarette Cigarette Packs Per Day: 0.5 Cigarettes Per Day: 10 Years Smoked: 23 e-Cigarette/Vaping Use: Never Used Second Hand Smoke Exposure: No Substance Use Type: Heroin and IV Drugs Advance Directives Date on File: 08/05/21 service: No Current occupational status: unemployed and disabled Physical Exam ED Vital Signs: Vital Signs - 24 hr 05/24/23 17:15 Temperature 98.6 F Pulse Rate 104 H Respiratory Rate 20 Blood Pressure 128/86 Pulse Oximetry 96 Oxygen Delivery Method Room Air BMI result Body Mass Index 27.3 vss Appearance: Alert.? Oriented X3.? No acute distress.? Head: Normocephalic, atraumatic, no step-offs or deformities Eyes: Pupils equal, round and reactive to light.? Neck: Normal inspection.? Neck supple.? CVS: Normal heart rate on the monitor w normal pulse ? Respiratory: No respiratory distress.? Abdomen: Soft and nontender.? Skin: Skin warm and dry.? Normal skin color.? Normal skin turgor.? Extremities:5/5 strength to bilateral upper extremities. Neuro: Oriented X 3.? No motor deficit.? No sensory deficit. CN 2-12 intact Course Course Course Narrative: This is an RME: Additional HPI, ROS, PE not included below will be deferred to primary provider. 4history of DM presenting to the emergency department today requesting a drug screen for DCF. Patient states that he needs to have a drug screen completed for DCF Reevaluation(s) Reevaluation #1: Patient test positive for fentanyl. I did let him know about this. Educated patient on diagnosis and treatment plan, answered all question, patient verbalizes understanding. At this time patient will be discharged home, advised to return with new or worsening symptoms. Educated on worrisome signs and symptoms and when to return. At this time I feel comfortable discharge home. Time: 18:18 Medical Decision Making Medical Decision Making [facility] Narrative: 38 yo m presents requesting drug screen PE benign Likely normal PE, will rule out polysubstance abuse. Differential Diagnosis Differential Diagnoses: The differential diagnosis associated with the presentation includes Likely normal PE, will rule out polysubstance abuse. Admission/Observation Consideration of admission/observation: Escalation of care including admission/observation considered unlikely Lab Data [facility] Lab Attestation statement: I reviewed the patient's lab results. Labs: Lab Results 05/24/23 Range/Units 18:02 Urine Opiates Screen Not Detected (Not Detect) Urine Fentanyl Screen POSITIVE H (Not Detect) Ur Barbiturates Screen Not Detected (Not Detect) Ur Phencyclidine Scrn Not Detected (Not Detect) Ur Amphetamines Screen Not Detected (Not Detect) U Benzodiazepines Scrn Not Detected (Not Detect) Urine Cocaine Screen Not Detected (Not Detect) U Marijuana (THC) Screen Not Detected (Not Detect) Critical Care Time Critical Care Time Critical Care Time: No Discharge Plan Discharge Clinical Impression: Encounter for drug screening Patient Disposition: Home, Self-Care Additional Instructions: Take your medications as prescribed. If you were prescribed antibiotics today, it is important that you take your medication to their entirety, do not skip any doses, do not finish them early. Follow-up with your primary care provider this week. Return to the emergency department with new or worsening symptoms. In case of emergency call 911 You tested positive fentanyl on your drug screen today. Prescriptions: No Action metformin 500 mg tablet 1,000 mg PO DAILY ferrous sulfate 324 mg (65 mg iron) tablet,delayed release (DR/EC) 324 mg PO DAILY methadone [Methadone Intensol] 10 mg/mL Concentrate 40 mg PO DAILY metformin 500 mg tablet 500 mg PO BID Qty: 120 0RF insulin glargine [Lantus Solostar U-100 Insulin] 100 unit/mL (3 mL) insulin pen 25 unit subcut BID Qty: 30 0RF insulin lispro 100 unit/mL insulin pen 1 sliding scale dose subcut USEASDIRECTD Qty: 30 0RF Rx Instructions: If glucose 151-200, take 2 units if glucose 201-250, take 4 units if glucose 251-300, take 6 units if glucose 301-350, take 8 units if glucose >350, take 10 units and call PCP (DME) pen needle, diabetic [BD Ultra-Fine Mini Pen Needle] 31 gauge x 3/16 needle See Rx Instructions .Route Qty: 100 0RF Rx Instructions: As directed (DME) FreeStyle Lite Strips Strip See Rx Instructions .Route Qty: 100 0RF Rx Instructions: As directed doxycycline monohydrate 100 mg capsule 100 mg PO BID Qty: 56 0RF oxycodone 5 mg tablet 5 mg PO Q6H PRN (Reason: pain) Qty: 20 0RF Rx Instructions: Partial Fill upon patient request. insulin lispro 100 unit/mL insulin pen See Protocol SUBCUT TID Qty: 15 0RF Protocol: Insulin Correction Scale Less than or equal to 110 ---- Give (units): 0 111 to 150 Give (units): 0 151 to 200 Give (units): 2 201 to 250 Give (units): 4 251 to 300 Give (units): 6 301 to 350 Give (units): 8 Greater than 350 Give (units): 10 Call MD if Blood Glucose > : 350 insulin glargine [Lantus Solostar U-100 Insulin] 100 unit/mL (3 mL) insulin pen 25 unit subcut BID Qty: 15 1RF (DME) Wheel chair Kit See Rx Instructions .Route Qty: 1 0RF Rx Instructions: As directed Referrals: ED Physician,Generic [Physician] - 2 days
[2023-05-24 17:15] VITALS: BP 128/86; PULSE 104; RESP 20; TEMP 37; O2SAT 96; BMI 27.3
[2023-05-24 18:14] LABS: Amphetamine Screen Urine Not Detected (Not Detect); Barbiturates, Urine Not Detected (Not Detect); Benzodiazepines Screen Urine Not Detected (Not Detect); Cannabinoid Screen Urine Not Detected (Not Detect); Cocaine Screen Urine Not Detected (Not Detect); Fentanyl, urine POSITIVE (Not Detect); Opiate Screen Urine Not Detected (Not Detect); Phencyclidine Screen Urine Not Detected (Not Detect)
== END 2023-05-24 18:28 | disposition home or self-care (01) ==
LOC: HO.ED 18:24
PROVIDERS: Physician Assistant; Emergency Provider Emergency Medicine Emergency Medical Services; PCP Internal Medicine
DX: Z02.83 Encounter for blood-alcohol and blood-drug test (principal); F11.20 Opioid dependence, uncomplicated; E11.9 Type 2 diabetes mellitus without complications; F17.210 Nicotine dependence, cigarettes, uncomplicated; Z79.4 Long term (current) use of insulin
CPT/HCPCS: 80307; 99282

== ENCOUNTER 2023-05-30 10:00 | Outpatient (RCR) | payer OTHER, SELFPAY ==
--- NOTE | 2023-05-03 11:12 | MHC.PT.EP ---
[facility] [place] [facility] [place] [facility] [place] Office [address] Gretel Justin [address] [phone] F: [phone] F: [phone] F: [phone] F: [phone] Physical Therapy Plan of Care Date of Evaluation: 05/03/23 Date of Surgery: 09/2022 Diagnosis: B BKA (RL) Assessment: pt is a 37 y/o male presenting to physical therapy w/ referring diagnosis of bilateral BKA. Impairments include pain, decreased range of motion, decreased strength, impaired functional mobility, impaired postural awareness, and altered ambulation mechanics. pt is a good candidate for skilled PT due to age, potential remediation of impairments, typical disease/condition progression and prognosis, comorbidities, and motivation. pt would benefit from skilled PT intervention to provide a tailored strengthening and stretching exercise program, functional training, gait training, postural re-training, neuromuscular re-education, modalities as needed for pain, equipment safety demonstration. Frequency and Duration: The patient will be seen 2x/wk for 8 wks Short Term Goals: pt will be I w/ HEP to promote self-management w/ condition. pt will improve L knee extension AROM to at least lacking 10 degrees to promote improved readiness for prosthetic. pt will participate in LE circumferential measurements to assess readiness for prosthetic casting. Mesh Man Goals: pt will demo CTG level for sit<>stand transfers to promote improved participation in lower body dressing. pt will report a statistically significant improvement in self-reported outcome measure, LEFI, to promote return to PLOF. pt will demo standing for at least 10 minutes to promote return to can tender. Treatment Plan: Modalities to reduce pain, spasms and effusion. Manual therapy to restore motion and function. Therapeutic exercise to improve strength and flexibility. Neuromuscular re-education for posture and balance. Therapeutic activities to return to functional activities of daily living. Electronically signed by: Alena Michel PT, DPT Please sign and return to therapist. Thank you for your referral.
--- NOTE | 2023-07-06 10:42 | MHC.PT.DC ---
[facility] [place] Office [place] Office [place] Office [address] Gretel Justin [address] [phone] F: [phone] F: [phone] F: [phone] F: [phone] Physical Therapy Discharge Report Diagnosis: B BKA (RL) Date of Surgery: 09/2022 Date of Evaluation: 05/03/23 Date of Discharge: 07/06/23 Treatments to Date: 6 Cancellations to Date: 4 No Shows to Date: 0 Discharge Status: Recommend MD Follow-up Visit Non-compliance Discharge Summary: The patient has missed several appointments and was put on hold for 3-4 weeks. We have not heard back from the patient in that time and he will be discharged from this physical therapy plan of care. During his plan of care he was noted to have a small open wound to the left residual limb; however, it was healing the last time he was seen. Electronically signed by: Alena Michel PT, DPT Please sign and return to therapist. Thank you for your referral.
== END 2023-07-06 10:43 | disposition home or self-care (01) ==
LOC: HO.PT 10:00
PROVIDERS: PCP Internal Medicine; Visit Provider Internal Medicine
DX: Z89.612 Acquired absence of left leg above knee (principal)
CPT/HCPCS: 97110; 97140; 97162